=== PATIENT | female | born 1995 | race Caucasian/White ===

== ENCOUNTER 2023-01-28 11:07 | Outpatient (OUT) | payer BC, SELFPAY ==
[2023-02-03 12:53] LABS: HCG Quantitative 21 mIU/mL
== END 2023-01-28 11:08 ==
LOC: LAB 11:11
PROVIDERS: Visit Provider Obstetrics & Gynecology
DX: O20.0 Threatened abortion (principal)
CPT/HCPCS: 36415; 84702

== ENCOUNTER 2023-09-26 16:23 | Outpatient (RCR) | payer BC, SELFPAY ==
[2023-09-26 16:56] LABS: HCG Quantitative 167 mIU/mL
[2023-09-28 15:17] LABS: HCG Quantitative 354 mIU/mL
[2023-09-30 10:41] LABS: HCG Quantitative 686 mIU/mL
[2023-10-13 11:19] LABS: HCG Quantitative 33116 mIU/mL
== END 2023-10-20 17:41 | disposition home or self-care (01) ==
LOC: LAB 16:23
PROVIDERS: Visit Provider Obstetrics & Gynecology
DX: N92.6 Irregular menstruation, unspecified (principal)
CPT/HCPCS: 36415; 84702

== ENCOUNTER 2023-10-27 13:35 | Outpatient (OUT) | payer BC, SELFPAY ==
--- NOTE | 2023-10-27 13:37 | US_ITS ---
[address] [address] Patient Name: MELE DOLL MRN: [id number] date: 1995 Sex: F Assigned Patient Location: [facility] Current Patient Location: [facility] Accession/Order Number: [id number] Exam Date: 10/27/2023 13:38 Report Date: 10/27/2023 14:28 At the request of: ELLEN COLIN Procedure: US OB transvaginal EXAMINATION: US OB transvaginal HISTORY: MISSED MENSES COMPARISON: No relevant comparison available. FINDINGS: GESTATIONAL SAC: Present and normal appearing. YOLK SAC: Present and normal appearing. POLE: Present and normal appearing. CARDIAC: Present. UTERUS: Normal size and appearance. OVARIES: Right: Corpus lutein cyst. Left: Normal. CERVIX: 3.7 cm in length and closed. CUL-DE-SAC: Normal. OTHER: None. AGE BY LMP: 8 weeks 3 days [place] BY LMP: 06/04/2024 AGE BY US CRL: 8 weeks 4 days [place] BY US CRL: 06/03/2024 US/US OB transvaginal IMPRESSION: 1. Single live intrauterine . Electronically authenticated by: EMERSON DOUGLASS Date: 10/27/2023 14:28
--- OUTSIDE RECORDS SUMMARY | 2023-10-27 13:57 | XMS_ITS | CCD ---
Author Name Unknown Address [address] [place] [address] Organization [facility] Care Team Providers Care Electromechanical Engineer Name Role Phone No, Physician Primary Care Provider Unavailabl e NO, PHYSICIAN Primary Care Unavailable MARIELLA, MAGDI REYNOSO Consulting Moon SALAZAR, MAGDI REYNOSO Attending Moon SALAZAR, MAGDI REYNOSO Admitting Unavai lable NO, PHYSICIAN Primary Care Unavailable KELLY, KATE LUCERO Attending Unavailable KATE EMNDOZA Admitting Unavailable REQUEST, DR FREEDMAN LISTED Primary Care Unavaila ble REINECK, DR STEW Haskins Admitting Unavailabl e REINECK, DR STEW Haskins Attending Unavailabl e GRECHJS ., SERGIO VASQUEZ Consulting Unavailabl e STRAWSER, DEYVI Consulting Unavailable REQUEST, DR FREEDMAN LISTED Primary Care Unavaila ble CRISTI ., DR HUGHES Admitting Unavailable CRISTI ., DR HUGHES Consulting Unavailable CRISTI ., DR HUGHES Attending Unavailable REQUEST, DR FREEDMAN LISTED Primary Care Unavaila ble CRISTI ., DR HUGHES Consulting Unavailable CRISTI ., DR HUGHES Attending Unavailable CRISTI ., DR HUGHES Admitting Unavailable REQUEST, DR FREEDMAN LISTED Primary Care Unavaila ble REQUEST, DR FREEDMAN LISTED Consulting Unavaila ble CRISTI ., DR HUGHES Admitting Unavailable CRISTI ., DR HUGHES Attending Unavailable CRISTIELLEN Attending Unavailable Medications Current Medications Medication Drug Class(es) Dates Sig (Normalized) Sig (Original) traMADol hydrochloride 50 mg oral tablet (1 source) Opioid Agonist Start: 06-23-2020 End: 06-26-2020 take 1 tablet by mouth every eight hours as needed for pain, then take 3 tablets by mouth as needed for pain traMADoL (ULTRAM) 50 mg tablet Indications: Acute appendicitis with localized peritonitis, without perforation, abscess, or gangrene Take 1 (one) tablet (50 mg total) by mouth every 8 (eight) hours as needed for pain Days supply 3 . 9 tablet 0 06/23/2020 06/26/2020 Active Completed/Discontinued Medications Medication Drug Class(es) Dates Sig (Normalized) Sig (Original) 1 ml ketorolac tromethamine 30 mg/ml injection (1 source) Nonsteroidal Anti-inflammatory Drug, Cyclooxygenase Inhibitor Start: 06-22-2020 End: 06-23-2020 take 30 mg intravenous route every six hours as needed 30 mg, Intravenous, Every 6 hours PRN, mild pain, Starting 06/22/20 at 2247, For 2 days 1 ml morphine sulfate 2 mg/ml prefilled syringe (2 sources) Opioid Agonist Start: 07-08-2020 End: 07-08-2020 morphine injection 4 mg Start: 06-22-2020 End: 06-23-2020 take 2 mg intravenous route every four hours as needed 2 mg, Intravenous, Every 4 hours PRN, moderate to severe pain, Starting 06/22/20 at 2247, For 2 days 2 ml ondansetron 2 mg/ml injection (2 sources) Serotonin-3 Receptor Antagonist Start: 07-08-2020 End: 07-08-2020 ondansetron (ZOFRAN) injection 4 mg Start: 06-22-2020 End: 06-23-2020 take 4 mg intravenous route every six hours as needed 4 mg, Intravenous, Every 6 hours PRN, nausea, vomiting, Starting 06/22/20 at 2247 As needed for nausea piperacillin-tazobactam (ZOSYN) 3.375 g in sodium chloride (NS) 0.9% 50 mL MBP (2 sources) Start: 06-23-2020 End: 06-23-2020 take 3.375 g intravenous route every eight hours 3.375 g, Intravenous, at 12.5 mL/hr, Every 8 hours, First dose on 06/23/20 at 0200, For 3 doses Indication: Severe Community Intra-abdominal Infections Start: 06-22-2020 End: 06-22-2020 piperacillin-tazobactam (ZOS YN) 3.375 g in sodium chloride (NS) 0.9% 50 mL MBP 1000 ml sodium chloride 9 mg /ml injection (4 sources) Start: 07-08-2020 End: 07-08-2020 sodium chloride 0.9% (NS) denis henri 1,000 mL Start: 07-08-2020 End: 07-08-2020 sodium chloride (PF) (NS) fl ush 5 mL Start: 06-22-2020 End: 06-22-2020 sodium chloride 0.9% (NS) denis henri 1,000 mL Start: 06-22-2020 End: 06-23-2020 sodium chloride (PF) (NS) fl ush 5 mL Problems Problem Classification Problem Date Documented Da te Episodic/Chronic Abdominal pain (1 source) Abdominal pain; Translations: [Abdominal pain, unspecified abdominal location] Episodic Hemorrhage during ; abruptio placenta; placenta previa (7 sources) Threatened ; Translations: [Hemorrhage in early , unspecified] Onset: 01-04-2023 Episodic Residual codes; unclassified (1 source) 9 weeks gestation of ; Translations: [9 WEEKS GESTATION OF ] Onset: 01-06-2023 Episodic Residual codes; unclassified (1 source) Type O blood, Rh negative; Translations: [TYPE O BLOOD RH NEGATIVE] Onset: 01-06-2023 Episodic Unclassified (1 source) Acute appendicitis with localized peritonitis, without perforation or gangrene; Translations: [Acute appendicitis with localized peritonitis, without perforation, abscess, or gangrene] Results Test Name Value Interpretation Reference Range Facility PREG QUANT HCGon 01-19-2023 HCG QUANT 67 mIU/mL Normal [facility] Comment on above: Performed By: #### P REGQNT #### [facility] [address] [place] [address] Dr. Tammi Fleming HCG RANGE SEE BELOW Normal [facility] Comment on above: Result Comment: 5-50 0.2-1 WEEK 50-500 1-2 WEEKS 100-5,000 2-3 WEEKS 500-10,000 3-4 WEEKS 1,000-50,000 4-5 WEEKS 10,000-100,000 5-6 WEEKS 15,000-200,000 6-8 WEEKS 10,000-100,000 2-3 MONTHS Performed By: #### P REGQNT #### [facility] [address] [place] [address] Dr. Tammi Fleming PREG QUANT HCGon 01-10-2023 HCG QUANT 231 mIU/mL Normal [facility] Comment on above: Performed By: #### P REGQNT #### [facility] [address] [place] [address] Dr. Tammi Fleming HCG RANGE SEE BELOW Normal [facility] Comment on above: Result Comment: 5-50 0.2-1 WEEK 50-500 1-2 WEEKS 100-5,000 2-3 WEEKS 500-10,000 3-4 WEEKS 1,000-50,000 4-5 WEEKS 10,000-100,000 5-6 WEEKS 15,000-200,000 6-8 WEEKS 10,000-100,000 2-3 MONTHS Performed By: #### P REGQNT #### [facility] [address] [place] [address] Dr. Tammi Fleming CBC AUTO DIFFon 01-04-2023 BASO # 0.0 103/ul Normal 0.0-0.1 [facility] Comment on above: Performed By: #### C BC #### [facility] [address] [place] [address] Dr. Tammi Fleming Basophils/100 WBC (Bld) 0.3 % Normal 0.2-2.0 [facility] Comment on above: Performed By: #### C BC #### [facility] [address] [place] [address] Dr. Tammi Fleming EO # 0.1 103/ul Normal 0.0-0.7 [facility] Comment on above: Performed By: #### C BC #### [facility] [address] [place] [address] Dr. Tammi Fleming Eosinophils/100 WBC (Bld) 0.8 % Critically low 0.9-7.0 [facility] Comment on above: Performed By: #### C BC #### [facility] [address] [place] [address] Dr. Tammi Fleming Erythrocyte distribution width (RBC) [Ratio] 12.0 % Normal 11.0-15.0 [facility] Comment on above: Performed By: #### C BC #### [facility] [address] [place] [address] Dr. Tammi Fleming Hematocrit (Bld) [Volume fraction] 42.6 % Normal 36.0-48.0 [facility] Comment on above: Performed By: #### C BC #### [facility] [address] [place] [address] Dr. Tammi Fleming Hemoglobin (Bld) [Mass/Vol] 14.5 g/dL Normal 12.0-16.0 [facility] Comment on above: Performed By: #### C BC #### [facility] [address] [place] [address] Dr. Tammi Fleming IG # 0.02 10e3/ul Normal 0.00-0.03 [facility] Comment on above: Performed By: #### C BC #### [facility] [address] [place] [address] Dr. Tammi Fleming IG % 0.3 % Normal 0.0-0.5 [facility] Comment on above: Performed By: #### C BC #### [facility] [address] [place] [address] Dr. Tammi Fleming LYMPH # 1.6 103/ul Normal 1.2-3.8 [facility] Comment on above: Performed By: #### C BC #### [facility] [address] [place] [address] Dr. Tammi Fleming Lymphocytes/100 WBC (Bld) 19.9 % Critically low 20.5-60.0 [facility] Comment on above: Performed By: #### C BC #### [facility] [address] [place] [address] Dr. Tammi Fleming MANUAL DIFF REQ NO Normal [facility] Comment on above: Performed By: #### C BC #### [facility] [address] [place] [address] Dr. Tammi Fleming MCH (RBC) [Entitic mass] 29.8 pg Normal 26.7-34.0 [facility] Comment on above: Performed By: #### C BC #### [facility] [address] [place] [address] Dr. Tammi Fleming MCHC (RBC) [Mass/Vol] 34.0 g/dL Normal 29.9-35.2 [facility] Comment on above: Performed By: #### C BC #### [facility] [address] [address] [address] Tammi Fleming MCV (RBC) [Entitic vol] 87.7 fL Normal 81.0-99.0 [facility] Comment on above: Performed By: #### C BC #### [facility] [address] [address] [address] Tammi Fleming MONO # 0.4 103/ul Normal 0.3-0.8 [facility] Comment on above: Performed By: #### C BC #### [facility] [address] [place] [address] Dr. Tammi Fleming Monocytes/100 WBC (Bld) 5.0 % Normal 1.7-12.0 [facility] Comment on above: Performed By: #### C BC #### [facility] [address] [place] [address] Dr. Tammi Fleming NEUT # 5.8 103/ul Normal 1.4-6.5 [facility] Comment on above: Performed By: #### C BC #### [facility] [address] [place] [address] Dr. Tammi Fleming Neutrophils/100 WBC (Bld) 73.7 % Normal 43.0-75.0 [facility] Comment on above: Performed By: #### C BC #### [facility] [address] [place] [address] Dr. Tammi Fleming Platelet mean volume (Bld) [Entitic vol] 12.1 fL Normal 9.5-13.5 [facility] Comment on above: Performed By: #### C BC #### [facility] [address] [place] [address] Dr. Tammi Fleming PLT 184 103/ul Normal 150-450 [facility] Comment on above: Performed By: #### C BC #### [facility] [address] [place] [address] Dr. Tammi Fleming RBC 4.86 106/ul Normal 4.20-5.40 [facility] Comment on above: Performed By: #### C BC #### [facility] [address] [place] [address] Dr. Tammi Fleming WBC 7.9 103/ul Normal 4.0-11.0 [facility] Comment on above: Performed By: #### C BC #### [facility] [address] [place] [address] Dr. Tammi Fleming ER URINE PROFILEon 3 Bilirubin Ql (U) Negative Normal NEGATIVE [facility] Comment on above: Performed By: #### Angela CHRISTIE UMICRO #### [facility] [address] [place] [address] Dr. Tammi Fleming Clarity (U) CLEAR Normal CLEAR [facility] Comment on above: Performed By: #### Angela CHRISTIE UMICRO #### [facility] [address] [place] [address] Dr. Tammi Fleming Color (U) LT. YELLOW Normal YELLOW [facility] Comment on above: Performed By: #### ERVIN SORTOICRO #### [facility] [address] [place] [address] Dr. Tammi Fleming ERUAHCampbell A micrscopic examina tion will be performed if indicated. Normal [facility] Comment on above: Performed By: #### Angela CHRISTIE UMICRO #### [facility] [address] [place] [address] Dr. Tammi Fleming Glucose Ql (U) Negative Normal NEGATIVE [facility] Comment on above: Performed By: #### Angela CHRISTIE UMICRO #### [facility] [address] [place] [address] Dr. Tammi Fleming Hemoglobin Ql (U) LARGE Abnormal NEGATIVE [facility] Comment on above: Performed By: #### Angela CHRISTIE UMICRO #### [facility] [address] [place] [address] Dr. Tammi Fleming Ketones Ql (U) Negative Normal NEGATIVE [facility] Comment on above: Performed By: #### Angela CHRISTIE UMICRO #### [facility] [address] [place] [address] Dr. Tammi Fleming LEUKOCYTES Negative Normal NEGATIVE [facility] Comment on above: Performed By: #### E RUR, UMICRO #### [facility] [address] [place] [address] Dr. Tammi Fleming Nitrite Ql (U) Negative Normal NEGATIVE [facility] Comment on above: Performed By: #### Angela CHRISTIE UMICRO #### [facility] [address] [place] [address] Dr. Tammi Fleming pH (U) 7.0 [pH] Normal 5-9 [facility] Comment on above: Performed By: #### Angela CHRISTIE UMICRO #### [facility] [address] [place] [address] Dr. Tammi Fleming SPEC GRAVITY <=1.005 Abnormal 1.005-<=1.025 [facility] Comment on above: Performed By: #### Angela CHRISTIE UMICRO #### [facility] [address] [place] [address] Dr. Tammi Fleming UA PROTEIN Negative Normal NEGATIVE/ TRACE [facility] Comment on above: Performed By: #### Angela CHRISTIE ICRO #### [facility] [address] [place] [address] Dr. Tammi Fleming UR MICRO IND INDICATED Normal [facility] Comment on above: Performed By: #### NAGA SORTORO #### [facility] [address] [place] [address] Dr. Tammi Fleming Urobilinogen Qn (U) 0.2 {Elder'U}/dL Normal 0.2 - 1.0 [facility] Comment on above: Performed By: #### Angela CHRISTIE UMICRO #### [facility] [address] [place] [address] Dr. Tammi Fleming PREG QUANT HCGon 01-04-2023 HCG QUANT 4523 mIU/mL Normal [facility] Comment on above: Performed By: #### P REGQNT #### [facility] [address] [place] [address] Dr. Tammi Fleming HCG RANGE SEE BELOW Normal [facility] Comment on above: Result Comment: 5-50 0.2-1 WEEK 50-500 1-2 WEEKS 100-5,000 2-3 WEEKS 500-10,000 3-4 WEEKS 1,000-50,000 4-5 WEEKS 10,000-100,000 5-6 WEEKS 15,000-200,000 6-8 WEEKS 10,000-100,000 2-3 MONTHS Performed By: #### P REGQNT #### [facility] [address] [place] [address] Dr. Tammi Fleming URINE MICROSCOPIC ONLYon BACTERIA TRACE Abnormal NONE SEEN [facility] Comment on above: Performed By: #### E RUR, UMICRO #### [facility] [address] [place] [address] Dr. Tammi Fleming Bacteria identified Cx Nom (U) NOT INDICATED Normal [facility] Comment on above: Performed By: #### Angela CHRISTIE, UMICRO #### [facility] [address] [place] [address] Dr. Tammi Fleming CAST NONE SEEN Normal NONE SEEN [facility] Comment on above: Performed By: #### Angela CHRISTIE, UMICRO #### [facility] [address] [place] [address] Dr. Tammi Fleming Crystals LM Nom (Urine sed) NONE SEEN Normal NONE SEEN [facility] Comment on above: Performed By: #### Angela CHRISTIE, UMICRO #### [facility] [address] [place] [address] Dr. Tammi Fleming Epithelial cells LM Ql (Urine sed) NONE SEEN Normal NONE SEEN /RARE [facility] Comment on above: Performed By: #### Angela CHRISTIE UMICRO #### [facility] [address] [place] [address] Dr. Tammi Fleming MUCOUS NONE SEEN Normal NONE SEEN [facility] Comment on above: Performed By: #### Angela CHRISTIE, UMICRO #### [facility] [address] [place] [address] Dr. Tammi Fleming RBC 2-5 Abnormal 0-2 [facility] Comment on above: Performed By: #### Angela CHRISTIE UMICRO #### [facility] [address] [place] [address] Dr. Tammi Fleming WBC NONE SEEN Normal NONE SEEN [facility] Comment on above: Performed By: #### E CIRILO CHRISTIE #### [facility] [address] [id number] Tammi Fleming US PREG TVon 01-04-2023 US PREG TV 1ST TRIMESTER OBSTET EPHRAIM ULTRASOUND: HISTORY: Vaginal bleeding complicating early . COMPARISON: No previous ultrasounds for this .. TECHNIQUE: Real-time sonography of the pelvis was performed. FINDINGS: There is a gestational sac and yolk sac. However, there is no pole or heartbeat identified which could be due to early gestational age. Both ovaries are visualized and are within normal limits. The right ovary measures3.0 x 2.7 x 1.7 cm. The left ovary measures3.1 x 2.6 x 1.9 cm.There is no free fluid in the cul-de-sac. IMPRESSION: There is a gestational sac and yolk sac. However, there is no pole or heartbeat which could be due to early gestational age. Repeat sonography is recommended in 2 weeks. Correlation is also recommended with serial beta hCG levels. Electronically authenticated by: DEYVI FELDER Date: 2023-01-04 18:08 Normal [facility] BMPon 07-08-2020 Anion gap [Moles/Vol] 11 mmol/L 10 - 20 mmol/L [facility] Calcium [Mass/Vol] 9.5 mg/dL 8.4 - 10. 2 mg/dL [facility] Chloride [Moles/Vol] 109 mmol/L High 98 - 108 mmol/L [facility] Creatinine [Mass/Vol] 0.85 mg/dL 0.40 - 1.10 [facility] GFR/1.73 sq M predicted among non-blacks MDRD (S/P/Bld) [Vol rate/Area] The eGFR should be used for monitoring renal function only and not for medication dosing. [facility] GFR/1.73 sq M.predicted CKD-EPI (S/P/Bld) [Vol rate/Area] 96 >=60 mL/min/1.73 m2 [facility] Glucose [Mass/Vol] 95 mg/dL 65 - 99 mg/dL [facility] HCO3 [Moles/Vol] 23 mmol/L 21 - 32 mmol/L [facility] Interpretation and review of laboratory results Abnormal [facility] Potassium [Moles/Vol] 3.5 mmol/L 3.5 - 5.1 mmol/L [facility] Sodium [Moles/Vol] 139 mmol/L 135 - 145 mmol/L [facility] Urea nitrogen [Mass/Vol] 10 mg/dL 8 - 25 mg/dL [facility] Urea nitrogen/Creatinin e [Mass ratio] 11.8 mg/mg [facility] CBC WITH AUTO DIFFERENTIALon 07-08-2020 Basophils (Bld) [#/Vol] 0.02 10*3/uL [facility] Basophils/100 WBC (Bld) 0.2 % [facility] Eosinophils (Bld) [#/Vol] 0.04 10*3/uL [facility] Eosinophils/100 WBC (Bld) 0.5 % [facility] Erythrocyte distribution width (RBC) [Entitic vol] 12.0 % 11.6 - 14.8 % [facility] Hematocrit (Bld) [Volume fraction] 43.3 % 36 - 46 % [facility] Hemoglobin (Bld) [Mass/Vol] 14.7 g/dL 12 - 16 g/dL [facility] Immature granulocytes (Bld) [#/Vol] 0.00 10*3/uL [facility] Immature granulocytes/100 WBC (Bld) 0.00 % [facility] Comment on above: The IG parameter is the percentage of metamyelocytes, myelocytes and promyelocytes. An immature granulocyte count (IG) of 1% or more suggests the possibility of infection, an IG count of 3% is very likely related to an infection. Lymphocytes (Bld) [#/Vol] 2.44 10*3/uL [facility] Lymphocytes/100 WBC (Bld) 30.2 % [facility] MCH (RBC) [Entitic mass] 29.2 pg 26 - 34 pg [facility] MCHC (RBC) [Mass/Vol] 33.9 g/dL 31 - 37 g/dL [facility] MCV (RBC) [Entitic vol] 86.1 fL 80 - 100 fL [facility] Monocytes (Bld) [#/Vol] 0.40 10*3/uL [facility] Monocytes/100 WBC (Bld) 5.0 % [facility] Neutrophils (Bld) [#/Vol] 5.17 10*3/uL [facility] Neutrophils/100 WBC (Bld) 64.1 % [facility] Platelet mean volume (Bld) [Entitic vol] 11.8 fL 9.4 - 12.4 fL [facility] Platelets (Bld) [#/Vol] 228 10*3/uL [facility] RBC (Bld) [#/Vol] 5.03 10*6/uL [facility] ealt WBC (Bld) [#/Vol] 8.07 10*3/uL [facility] ealt CT ABDOMEN PELVIS WITH IV CO NTRAST ONLYon 07-08-2020 CT ABDOMEN PELVIS WITH IV CONTRAST ONLY EXAMINATION: CT ABDOMEN PELVIS WITH IV CONTRAST ONLY HISTORY: ORDERING SYSTEM PROVIDED HISTORY: Abdominal infection suspected; Abdominal pain, acute, nonlocalized, TECHNOLOGIST PROVIDED HISTORY: Illness/Other Reason for exam: abd pain: nausea Encounter Type: Initial Additional signs and symptoms: abd pain x 2 days ORDERING SYSTEM PROVIDED DIAGNOSIS CODES: COMPARISON: 06/22/2020 TECHNIQUE: Following the uneventful administration of 75 mL Isovue-370 IV contrast, helical imaging of the abdomen and pelvis was performed. Multiplanar reformats are submitted. Dose reduction techniques were achieved by using: automated exposure control and/or adjustment of mA and/or kV according to patient size and/or use of iterative reconstruction technique. FINDINGS: ABDOMEN: The lung bases are clear. Heart size is normal. No pleural or pericardial effusion. The liver demonstrates normal morphology and attenuation without focal hepatic lesion. The gallbladder is present without calcified gallstones or pericholecystic abnormality. The spleen, pancreas and adrenal glands are unremarkable. There is symmetric enhancement of the kidneys. No obstructive uropathy or nephroureterolithiasis identified. PELVIS: There is no free air, bowel obstruction or pneumatosis. There are postsurgical changes from recent appendectomy. Trace amount of fluid is present along the inferior margin of the liver, which appears simple in nature. There is no organized drainable fluid collection to suggest abscess. Small amount of perihepatic fluid likely is postsurgical. Bladder is moderately distended and thin walled. The uterus and ovaries are present. Trace amount of free fluid in the pelvis is likely physiologic versus postsurgical. Feminine hygiene product is present within the vagina. The abdominal aorta is normal. No retroperitoneal or abdominopelvic lymphadenopathy. No acute or aggressive osseous abnormality identified. IMPRESSION: 1. No acute infectious, inflammatory or obstructive process identified in the abdomen or pelvis. 2. Postsurgical changes from recent appendectomy. Workstation ID: [id number] Dictated by: MAYNOR KABA on TueJul 08, 2020 3:59:53 PM EST Transcribed by: MAYNOR KABA on TueJul 08, 2020 3:59:53 PM EST Finalized by: MAYNOR KABA on TueJul 08, 2020 3:59:53 PM EST [facility] Comment on above: Order Comment: Injur y/Trauma or Illness?:Illness/Other How long have you had these symptoms (acute/chronic)?:Acute Reason for exam?:abd pain: nausea Type of Exam?:Initial Additional signs and symptoms?:abd pain x [address] Abdomen Pelvis With IV Co ntrast Onlyon 07-08-2020 Interface, Rad In Fu ji Speechq - 07/08/2020 4:02 PM EST EXAMINATION: CT ABDOMEN PELVIS WITH IV CONTRAST ONLY HISTORY: ORDERING SYSTEM PROVIDED HISTORY: Abdominal infection suspected; Abdominal pain, acute, nonlocalized, TECHNOLOGIST PROVIDED HISTORY: Illness/Other Reason for exam: abd pain: nausea Encounter Type: Initial Additional signs and symptoms: abd pain x 2 days ORDERING SYSTEM PROVIDED DIAGNOSIS CODES: COMPARISON: 06/22/2020 TECHNIQUE: Following the uneventful administration of 75 mL Isovue-370 IV contrast, helical imaging of the abdomen and pelvis was performed. Multiplanar reformats are submitted. Dose reduction techniques were achieved by using: automated exposure control and/or adjustment of mA and/or kV according to patient size and/or use of iterative reconstruction technique. FINDINGS: ABDOMEN: The lung bases are clear. Heart size is normal. No pleural or pericardial effusion. The liver demonstrates normal morphology and attenuation without focal hepatic lesion. The gallbladder is present without calcified gallstones or pericholecystic abnormality. The spleen, pancreas and adrenal glands are unremarkable. There is symmetric enhancement of the kidneys. No obstructive uropathy or nephroureterolithiasis identified. PELVIS: There is no free air, bowel obstruction or pneumatosis. There are postsurgical changes from recent appendectomy. Trace amount of fluid is present along the inferior margin of the liver, which appears simple in nature. There is no organized drainable fluid collection to suggest abscess. Small amount of perihepatic fluid likely is postsurgical. Bladder is moderately distended and thin walled. The uterus and ovaries are present. Trace amount of free fluid in the pelvis is likely physiologic versus postsurgical. Feminine hygiene product is present within the vagina. The abdominal aorta is normal. No retroperitoneal or abdominopelvic lymphadenopathy. No acute or aggressive osseous abnormality identified. IMPRESSION: 1. No acute infectious, inflammatory or obstructive process identified in the abdomen or pelvis. 2. Postsurgical changes from recent appendectomy. Workstation ID: [id number] [facility] EXAMINATION: CT ABDO MEN PELVIS WITH IV CONTRAST ONLY HISTORY: ORDERING SYSTEM PROVIDED HISTORY: Abdominal infection suspected; Abdominal pain, acute, nonlocalized, TECHNOLOGIST PROVIDED HISTORY: Illness/Other Reason for exam: abd pain: nausea Encounter Type: Initial Additional signs and symptoms: abd pain x 2 days ORDERING SYSTEM PROVIDED DIAGNOSIS CODES: COMPARISON: 06/22/2020 TECHNIQUE: Following the uneventful administration of 75 mL Isovue-370 IV contrast, helical imaging of the abdomen and pelvis was performed. Multiplanar reformats are submitted. Dose reduction techniques were achieved by using: automated exposure control and/or adjustment of mA and/or kV according to patient size and/or use of iterative reconstruction technique. FINDINGS: ABDOMEN: The lung bases are clear. Heart size is normal. No pleural or pericardial effusion. The liver demonstrates normal morphology and attenuation without focal hepatic lesion. The gallbladder is present without calcified gallstones or pericholecystic abnormality. The spleen, pancreas and adrenal glands are unremarkable. There is symmetric enhancement of the kidneys. No obstructive uropathy or nephroureterolithiasis identified. PELVIS: There is no free air, bowel obstruction or pneumatosis. There are postsurgical changes from recent appendectomy. Trace amount of fluid is present along the inferior margin of the liver, which appears simple in nature. There is no organized drainable fluid collection to suggest abscess. Small amount of perihepatic fluid likely is postsurgical. Bladder is moderately distended and thin walled. The uterus and ovaries are present. Trace amount of free fluid in the pelvis is likely physiologic versus postsurgical. Feminine hygiene product is present within the vagina. The abdominal aorta is normal. No retroperitoneal or abdominopelvic lymphadenopathy. No acute or aggressive osseous abnormality identified. [facility] 1. No acute infectio us, inflammatory or obstructive process identified in the abdomen or pelvis. 2. Postsurgical changes from recent appendectomy. Workstation ID: [id number] [facility] Hepatic Function Panel (LFT) on 07-08-2020 Albumin [Mass/Vol] 3.8 g/dL 3.2 - 5.2 g/dL [facility] ALP [Catalytic activity/Vol] 71 U/L 40 - 140 U/L [facility] ALT [Catalytic activity/Vol] 31 U/L 14 - 65 U/L [facility] AST [Catalytic activity/Vol] 18 U/L 0 - 45 U/L [facility] Bilirubin [Mass/Vol] 0.3 mg/dL 0 - 1.3 mg/dL [facility] Bilirubin.conjugat ed [Mass/Vol] mg/dL 0 - 0.4 mg/dL [facility] Protein [Mass/Vol] 7.9 g/dL 6 - 8 g/dL [facility] alth Lipaseon 07-08-2020 Lipase [Catalytic activity/Vol] 95 U/L 73 - 393 U/L [facility] Otheron 07-08-2020 Interpretation and review of laboratory results Normal [facility] Extra Tube Hold for add-ons. [facility] Comment on above: Auto resulted. URINALYSISon 07-08-2020 Bacteria Auto Ql (U) Rare Abnormal None Seen /hpf [facility] Bilirubin Ql (U) Negative Negative [facility] th Clarity Refractometry automated (U) Clear Clear [facility] Color (U) Yellow Colorless, Yellow [facility] Epithelial cells.squamous Auto (Urine sed) [#/Area] 1 [facility] Glucose Auto test strip (U) [Mass/Vol] Negative Negative mg/dL [facility] Hemoglobin Auto test strip Ql (U) Negative Negative [facility] Interpretation and review of laboratory results Abnormal [facility] Ketones (U) [Mass/Vol] Negative Negative mg/dL [facility] Leukocyte esterase Auto test strip Ql (U) Negative Negative [facility] Nitrite Auto test strip Ql (U) Negative Negative [facility] pH (U) 7.5 [pH] High [facility] Protein (U) [Mass/Vol] Negative Negative mg/dL [facility] Specific gravity (U) [Rel density] 1.020 [facility] Urobilinogen (U) [Mass/Vol] <2.0 <2.0 mg/dL [facility] Microscopic examinat ion is performed on all urinalysis samples and only positive findings are reported. The test for blood on the chemical analytic portion of urinalysis may also be positive due to hemoglobinuria and myoglobinuria and if red blood cells are present they are quantified by microscopic examination. [facility] Urine Pregnancyon 07-08-2020 HCG ( test) Ql (U) Negative Negative [facility] Interpretation and review of laboratory results Normal [facility] CBC WITH AUTO DIFFERENTIALon 06-23-2020 Basophils (Bld) [#/Vol] 0.00 10*3/uL [facility] Basophils/100 WBC (Bld) 0.0 % [facility] Eosinophils (Bld) [#/Vol] 0.00 10*3/uL [facility] Eosinophils/100 WBC (Bld) 0.0 % [facility] Erythrocyte distribution width (RBC) [Entitic vol] 12.2 % 11.6 - 14.8 % [facility] Hematocrit (Bld) [Volume fraction] 37.2 % 36 - 46 % [facility] Hemoglobin (Bld) [Mass/Vol] 12.6 g/dL 12 - 16 g/dL [facility] Immature granulocytes (Bld) [#/Vol] 0.01 10*3/uL [facility] Immature granulocytes/100 WBC (Bld) 0.10 % [facility] Comment on above: The IG parameter is the percentage of metamyelocytes, myelocytes and promyelocytes. An immature granulocyte count (IG) of 1% or more suggests the possibility of infection, an IG count of 3% is very likely related to an infection. Interpretation and review of laboratory results Abnormal [facility] Lymphocytes (Bld) [#/Vol] 0.82 10*3/uL Low [facility] Lymphocytes/100 WBC (Bld) 6.8 % [facility] MCH (RBC) [Entitic mass] 29.3 pg 26 - 34 pg [facility] MCHC (RBC) [Mass/Vol] 33.9 g/dL 31 - 37 g/dL [facility] MCV (RBC) [Entitic vol] 86.5 fL 80 - 100 fL [facility] Monocytes (Bld) [#/Vol] 0.31 10*3/uL [facility] Monocytes/100 WBC (Bld) 2.6 % [facility] Neutrophils (Bld) [#/Vol] 10.86 10*3/uL High [facility] Neutrophils/100 WBC (Bld) 90.5 % [facility] Platelet mean volume (Bld) [Entitic vol] 12.1 fL 9.4 - 12.4 fL [facility] Platelets (Bld) [#/Vol] 197 10*3/uL [facility] RBC (Bld) [#/Vol] 4.30 10*6/uL [facility]alth WBC (Bld) [#/Vol] 12.00 10*3/uL [facility] CBC WITH AUTO DIFFERENTIALon 06-22-2020 Basophils (Bld) [#/Vol] 0.02 10*3/uL [facility] Basophils/100 WBC (Bld) 0.1 % [facility] Eosinophils (Bld) [#/Vol] 0.00 10*3/uL [facility] Eosinophils/100 WBC (Bld) 0.0 % [facility] Erythrocyte distribution width (RBC) [Entitic vol] 12.0 % 11.6 - 14.8 % [facility] Hematocrit (Bld) [Volume fraction] 40.2 % 36 - 46 % [facility] Hemoglobin (Bld) [Mass/Vol] 14.0 g/dL 12 - 16 g/dL [facility] Immature granulocytes (Bld) [#/Vol] 0.02 10*3/uL [facility] Immature granulocytes/100 WBC (Bld) 0.10 % [facility] Comment on above: The IG parameter is the percentage of metamyelocytes, myelocytes and promyelocytes. An immature granulocyte count (IG) of 1% or more suggests the possibility of infection, an IG count of 3% is very likely related to an infection. Interpretation and review of laboratory results Abnormal [facility] Lymphocytes (Bld) [#/Vol] 1.20 10*3/uL [facility] Lymphocytes/100 WBC (Bld) 5.9 % [facility] MCH (RBC) [Entitic mass] 29.4 pg 26 - 34 pg [facility] MCHC (RBC) [Mass/Vol] 34.8 g/dL 31 - 37 g/dL [facility] MCV (RBC) [Entitic vol] 84.5 fL 80 - 100 fL [facility] Monocytes (Bld) [#/Vol] 0.67 10*3/uL [facility] Monocytes/100 WBC (Bld) 3.3 % [facility] Neutrophils (Bld) [#/Vol] 18.51 10*3/uL High [facility] Neutrophils/100 WBC (Bld) 90.6 % [facility] Platelet mean volume (Bld) [Entitic vol] 11.7 fL 9.4 - 12.4 fL [facility] Platelets (Bld) [#/Vol] 223 10*3/uL [facility] RBC (Bld) [#/Vol] 4.76 10*6/uL [facility] WBC (Bld) [#/Vol] 20.42 10*3/uL [facility] COVID-19, MOLECULARon 2019 SARS-COV-2 (BERG ID) Not Detected Normal Not Detected [facility] Comment on above: Result Comment: This test was performed under the FDA's Emergency Use Authorization (EUA). Testing was performed using the Berg ID NOW COVID-19 assay on the ID NOW platform. This test has not been approved for use in asymptomatic patients and its performance in this patient population has not been evaluated. Negative results do not rule out the presence of SARS-CoV-2/COVID-19. Fact sheets for the EUA can be found at the following links: For Healthcare Providers: https://www.fda.gov/media/382954/download For Patients: https://www.fda.gov/media/322469/download Performed By: #### L [id number] #### SH [address] [address] Kenneth Arrieta M.D. [id number] COVID-19, Molecularon 2019 Interpretation and review of laboratory results Normal [facility] SARS-CoV-2 Not Detected Not Detected [facility] Comment on above: This test was perfor med under the FDA's Emergency Use Authorization (EUA). Testing was performed using the Berg ID NOW COVID-19 assay on the ID NOW platform. This test has not been approved for use in asymptomatic patients and its performance in this patient population has not been evaluated. Negative results do not rule out the presence of SARS-CoV-2/COVID-19. Fact sheets for the EUA can be found at the following links: For Healthcare Providers: https://www.fda.gov/media/510382/download For Patients: https://www.fda.gov/media/659983/download CT ABDOMEN PELVIS WITH IV CO NTRAST ONLYon 06-22-2020 CT ABDOMEN PELVIS WITH IV CONTRAST ONLY EXAMINATION: CT ABDOMEN PELVIS WITH IV CONTRAST ONLY, 06/22/2020 COMPARISON: None. HISTORY: Suprapubic and RLQ abd pain Suprapubic and RLQ abd pain, Injury/Trauma or Illness?:Illness/Other How long have you had these symptoms (acute/chronic)?:Chronic, 3 months of off and on RLQ pain. TECHNIQUE: 3 mm axial images performed through the abdomen and pelvis following administration of 75 mL of intravenous Isovue-370. 3 mm coronal and sagittal MPR reconstructions also performed through the abdomen and pelvis. Dose reduction techniques were achieved by using automated exposure control and/or adjustment of mA and/or kV according to patient size and/or use of iterative reconstruction technique. FINDINGS: ABDOMINAL CT FINDINGS: Lung bases are clear. Visualized heart is normal in size with no pericardial effusion. The liver and remaining solid organs and gallbladder are unremarkable in appearance. No significant adenopathy. PELVIC CT FINDINGS: The appendix which is seen just anterior to the right common iliac artery is distended with largest distal diameter approaching 9 mm with wall enhancement and mild adjacent fatty stranding and edema consistent with an acute appendicitis (image #[id number], series 2 and image #[id number], series 3). Moderate amount of fecal matter in the proximal colon. The cecum is seen directed medially within the central anterior [id number] pelvis. No bowel obstruction. Some physiologic free fluid in the cul-de-sac. Some follicles seen in the ovaries bilaterally. The uterus and urinary bladder unremarkable. No acute osseous abnormality. IMPRESSION: 1. Acute appendicitis. The appendix is seen just anterior to the right common iliac artery and is distended approaching 9 mm with wall enhancement and surrounding fatty stranding. 2. Moderate amount of fecal matter in the proximal colon. The cecum is directed medially within the central anterior [id number] pelvis with no bowel obstruction. 3. Some physiologic free fluid in the cul-de-sac. Some small follicles seen in the ovaries bilaterally. Results were called by Dr. Clifford Wilson to Dr. ANDREY VALDEZ on 06/22/2020 at 16:43. GJT/dnb Workstation ID: [id number] Dictated by: CHAD WILSON on TueJun 22, 2020 4:45:35 PM EST Transcribed by: ROSA ISELA BOWEN on TueJun 22, 2020 5:23:52 PM EST Finalized by: CHAD WILSON on TueJun 22, 2020 8:48:07 PM EST [facility] Comment on above: Order Comment: Injur y/Trauma or Illness?:Illness/Other How long have you had these symptoms (acute/chronic)?:Chronic Reason for exam?:3 months of off and on RLQ pain Type of Exam?:Initial Additional signs and symptoms?:denies any other symptoms CT Abdomen Pelvis With IV Co ntrast Onlyon 06-22-2020 Interface, Rad In Fu ji Speechq - 06/22/2020 8:50 PM EST EXAMINATION: CT ABDOMEN PELVIS WITH IV CONTRAST ONLY, 06/22/2020 COMPARISON: None. HISTORY: Suprapubic and RLQ abd pain Suprapubic and RLQ abd pain, Injury/Trauma or Illness?:Illness/Other How long have you had these symptoms (acute/chronic)?:Chronic, 3 months of off and on RLQ pain. TECHNIQUE: 3 mm axial images performed through the abdomen and pelvis following administration of 75 mL of intravenous Isovue-370. 3 mm coronal and sagittal MPR reconstructions also performed through the abdomen and pelvis. Dose reduction techniques were achieved by using automated exposure control and/or adjustment of mA and/or kV according to patient size and/or use of iterative reconstruction technique. FINDINGS: ABDOMINAL CT FINDINGS: Lung bases are clear. Visualized heart is normal in size with no pericardial effusion. The liver and remaining solid organs and gallbladder are unremarkable in appearance. No significant adenopathy. PELVIC CT FINDINGS: The appendix which is seen just anterior to the right common iliac artery is distended with largest distal diameter approaching 9 mm with wall enhancement and mild adjacent fatty stranding and edema consistent with an acute appendicitis (image #[id number], series 2 and image #[id number], series 3). Moderate amount of fecal matter in the proximal colon. The cecum is seen directed medially within the central anterior vhj-pt-falxu pelvis. No bowel obstruction. Some physiologic free fluid in the cul-de-sac. Some follicles seen in the ovaries bilaterally. The uterus and urinary bladder unremarkable. No acute osseous abnormality. IMPRESSION: 1. Acute appendicitis. The appendix is seen just anterior to the right common iliac artery and is distended approaching 9 mm with wall enhancement and surrounding fatty stranding. 2. Moderate amount of fecal matter in the proximal colon. The cecum is directed medially within the central anterior rvj-in-phxbf pelvis with no bowel obstruction. 3. Some physiologic free fluid in the cul-de-sac. Some small follicles seen in the ovaries bilaterally. Results were called by Dr. Clifford Wilson to Dr. ANDREY VALDEZ on 06/22/2020 at 16:43. GJT/dnb Workstation ID: [id number] [facility] 1. Acute appendiciti s. The appendix is seen just anterior to the right common iliac artery and is distended approaching 9 mm with wall enhancement and surrounding fatty stranding. 2. Moderate amount of fecal matter in the proximal colon. The cecum is directed medially within the central anterior lwt-ud-[id number] pelvis with no bowel obstruction. 3. Some physiologic free fluid in the cul-de-sac. Some small follicles seen in the ovaries bilaterally. Results were called by Dr. Clifford Wilson to Dr. ANDREY VALDEZ on 06/22/2020 at 16:43. GJT/dnb Workstation ID: [id number] [facility] EXAMINATION: CT ABDO MEN PELVIS WITH IV CONTRAST ONLY, 06/22/2020 COMPARISON: None. HISTORY: Suprapubic and RLQ abd pain Suprapubic and RLQ abd pain, Injury/Trauma or Illness?:Illness/Other How long have you had these symptoms (acute/chronic)?:Chronic, 3 months of off and on RLQ pain. TECHNIQUE: 3 mm axial images performed through the abdomen and pelvis following administration of 75 mL of intravenous Isovue-370. 3 mm coronal and sagittal MPR reconstructions also performed through the abdomen and pelvis. Dose reduction techniques were achieved by using automated exposure control and/or adjustment of mA and/or kV according to patient size and/or use of iterative reconstruction technique. FINDINGS: ABDOMINAL CT FINDINGS: Lung bases are clear. Visualized heart is normal in size with no pericardial effusion. The liver and remaining solid organs and gallbladder are unremarkable in appearance. No significant adenopathy. PELVIC CT FINDINGS: The appendix which is seen just anterior to the right common iliac artery is distended with largest distal diameter approaching 9 mm with wall enhancement and mild adjacent fatty stranding and edema consistent with an acute appendicitis (image #[id number], series 2 and image #[id number], series 3). Moderate amount of fecal matter in the proximal colon. The cecum is seen directed medially within the central anterior qkx-rw-pggvv pelvis. No bowel obstruction. Some physiologic free fluid in the cul-de-sac. Some follicles seen in the ovaries bilaterally. The uterus and urinary bladder unremarkable. No acute osseous abnormality. [facility] Comprehensive Metabolic Pane kendra 06-22-2020 Albumin [Mass/Vol] 4.0 g/dL 3.2 - 5.2 g/dL [facility] ALP [Catalytic activity/Vol] 63 U/L 40 - 140 U/L [facility] ALT [Catalytic activity/Vol] 27 U/L 14 - 65 U/L [facility] Anion gap [Moles/Vol] 10 mmol/L 10 - 20 mmol/L [facility] AST [Catalytic activity/Vol] 18 U/L 0 - 45 U/L [facility] Bilirubin [Mass/Vol] 0.5 mg/dL 0 - 1.3 mg/dL [facility] Calcium [Mass/Vol] 9.1 mg/dL 8.4 - 10. 2 mg/dL [facility] Chloride [Moles/Vol] 109 mmol/L High 98 - 108 mmol/L [facility] Creatinine [Mass/Vol] 0.83 mg/dL 0.40 - 1.10 [facility] GFR/1.73 sq M predicted among non-blacks MDRD (S/P/Bld) [Vol rate/Area] The eGFR should be used for monitoring renal function only and not for medication dosing. [facility] GFR/1.73 sq M.predicted CKD-EPI (S/P/Bld) [Vol rate/Area] 98 >=60 mL/min/1.73 m2 [facility] Glucose [Mass/Vol] 96 mg/dL 65 - 99 mg/dL [facility] HCO3 [Moles/Vol] 25 mmol/L 21 - 32 mmol/L [facility] Potassium [Moles/Vol] 3.7 mmol/L 3.5 - 5.1 mmol/L [facility] Protein [Mass/Vol] 7.8 g/dL 6 - 8 g/dL [facility] alth Sodium [Moles/Vol] 140 mmol/L 135 - 145 mmol/L [facility] Urea nitrogen [Mass/Vol] 10 mg/dL 8 - 25 mg/dL [facility] Urea nitrogen/Creatinin e [Mass ratio] 12.0 mg/mg [facility] ECG 12-LEADon 06-22-2020 Andrey Valdez MD 2019 4:57 PM ECG 12 Lead Date/Time: 06/22/2020 4:51 PM Performed by: Andrey Valdez MD Authorized by: Andrey Valdez MD Interpreted by ED attending physician Comparison: not compared with previous ECG Rhythm: sinus rhythm BPM: 85 ND Interval: 108 QRS Interval: 82 QT Interval: 426 Clinical impression: non-specific ECG [facility] Lipaseon 06-22-2020 Lipase [Catalytic activity/Vol] 72 U/L Low 73 - 393 U/L [facility] Otheron 06-22-2020 Interpretation and review of laboratory results Abnormal [facility] URINALYSISon 06-22-2020 Bacteria Auto Ql (U) Few Abnormal None Seen /hpf [facility] Bilirubin Ql (U) Negative Negative [facility] th Clarity Refractometry automated (U) Cloudy Abnormal Clear [facility] Color (U) Yellow Colorless, Yellow [facility] Epithelial cells.squamous Auto (Urine sed) [#/Area] 3 [facility] Glucose Auto test strip (U) [Mass/Vol] Negative Negative mg/dL [facility] Hemoglobin Auto test strip Ql (U) Negative Negative [facility] Interpretation and review of laboratory results Abnormal [facility] Ketones (U) [Mass/Vol] 20 Abnormal Negative mg/dL [facility] Leukocyte esterase Auto test strip Ql (U) Negative Negative [facility] Nitrite Auto test strip Ql (U) Negative Negative [facility] pH (U) 7.0 [pH] [facility] Protein (U) [Mass/Vol] Negative Negative mg/dL [facility] Specific gravity (U) [Rel density] 1.020 [facility] Urobilinogen (U) [Mass/Vol] <2.0 <2.0 mg/dL [facility] WBC Auto (Urine sed) [#/Area] 2 [facility] Microscopic examinat ion is performed on all urinalysis samples and only positive findings are reported. The test for blood on the chemical analytic portion of urinalysis may also be positive due to hemoglobinuria and myoglobinuria and if red blood cells are present they are quantified by microscopic examination. [facility] Urine Pregnancyon 06-22-2020 HCG ( test) Ql (U) Negative Negative [facility] Interpretation and review of laboratory results Normal [facility] Vital Signs Date Time Vital Sign Value Performing Clinician Jennifer evans 07-08-2020 15:34-0500 BP Diastolic 79 mm[Hg] [facility] 07-08-2020 15:34-0500 BP Systolic 125 mm[Hg] [facility] 07-08-2020 15:34-0500 Pulse (Heart Rate) 81 /min [facility] 07-08-2020 15:34-0500 Pulse Oximetry 99 % [facility] 07-08-2020 15:34-0500 Respiratory Rate 16 /min [facility] 07-08-2020 13:50-0500 BMI (Body Mass Index) 20.36 kg/m2 [facility] 07-08-2020 13:50-0500 Body Temperature 98.49 [degF] [facility] 07-08-2020 13:50-0500 Body weight 58.97 kg Kate Mendoza [facility] 07-08-2020 13:50-0500 Height 170.2 cm Kate Mendoza [facility] 06-23-2020 07:35-0500 Body Temperature 98.01 [degF] [facility] 06-23-2020 07:35-0500 BP Diastolic 68 mm[Hg] [facility] 06-23-2020 07:35-0500 BP Systolic 106 mm[Hg] [facility] 06-23-2020 07:35-0500 Pulse (Heart Rate) 75 /min [facility] 06-23-2020 07:35-0500 Pulse Oximetry 94 % [facility] 06-23-2020 07:35-0500 Respiratory Rate 16 /min [facility] 06-22-2020 14:15-0500 BMI (Body Mass Index) 20.36 kg/m2 [facility] 06-22-2020 14:15-0500 Body weight 58.97 kg [facility] 06-22-2020 14:15-0500 Height 170.2 cm [facility] Encounters Encounter Date Encounter Type Care Provider Facility Start: 09-12-2023 End: 09-12-2023 ambulatory ELLEN COLIN Not Available Start: 01-19-[address] NONE LISTED REQUEST Facility: Start: 01-14-[address] NONE LISTED REQUEST Facility: Start: 01-10-2023 End: 01-11-[address] NONE LISTED REQUEST Facility: Start: 01-04-2023 End: 01-04-[address] NONE LISTED REQUEST Facility: Start: 07-08-2020 End: 07-08-2020 Emergency department patient visit PHYSICIAN [facility] Start: 07-08-2020 End: 07-08-2020 Emergency department patient visit Kate Mendoza Work Phone: [facility] Comment on above: Abdominal pain, unsp ecified abdominal location (Primary Dx) Start: 06-22-2020 End: 06-23-2020 Patient encounter procedure PHYSICIAN [facility] Start: 06-22-2020 End: 06-23-2020 Emergency department patient visit Andrey Valdez Work Phone: [facility] Comment on above: Acute appendicitis w ith localized peritonitis, without perforation, abscess, or gangrene (Primary Dx) Procedures Date Procedure Procedure Detail Performing Clinician Start: 07-08-2020 Ct abdomen & pelvis w/contrast material Kate Mendoza Work Phone: Start: 07-08-2020 Basic metabolic 2000 panel - Serum or Plasma Kate Mendoza Work Phone: Start: 07-08-2020 Choriogonadotropin ( test) [Presence] in Urine Kate Mendoza Work Phone: Start: 07-08-2020 Complete blood count with white cell differential, automated Kate Mendoza Work Phone: Start: 07-08-2020 Complete blood count with white cell differential, manual Kate Mendoza Work Phone: Start: 07-08-2020 Hepatic function 2000 panel - Serum or Plasma Kate Mendoza Work Phone: Start: 07-08-2020 LIGHT BLUE TOP Kate Mendoza Work Phone: Start: 07-08-2020 LIGHT GREEN TOP Kate Mendoza Work Phone: Start: 07-08-2020 Lipase [Enzymatic activity/volume] in Serum or Plasma Kate Mendoza Work Phone: Start: 07-08-2020 RAINBOW DRAW Kate Mendoza Work Phone: Start: 07-08-2020 Urinalysis Kate Mendoza Work Phone: Start: 06-23-2020 Complete blood count with white cell differential, automated Magdi Kevin Salazar Work Phone: Start: 06-23-2020 Complete blood count with white cell differential, manual Magdi Kevin Salazar Work Phone: Start: 06-22-2020 End: 06-22-2020 APPENDECTOMY LAPAROSCOPIC Magdi Katherine Sparrow Work Phone: Start: 06-22-2020 COVID-19, MOLECULAR Andrey Valdez Work Phone: Start: 06-22-2020 12 lead ECG Andrey Valdez Work Phone: Start: 06-22-2020 Ct abdomen & pelvis w/contrast material Andrey Valdez Work Phone: Start: 06-22-2020 Complete blood count with white cell differential, automated Andrey Valdez Work Phone: Start: 06-22-2020 Complete blood count with white cell differential, manual Andrey Valdez Work Phone: Start: 06-22-2020 Comprehensive metabolic 2000 panel - Serum or Plasma Andrey Valdez Work Phone: Start: 06-22-2020 Lipase [Enzymatic activity/volume] in Serum or Plasma Andrey Valdez Work Phone: Start: 06-22-2020 Choriogonadotropin ( test) [Presence] in Urine Andrey Valdez Work Phone: Start: 06-22-2020 Urinalysis Andrey Valdez Work Phone: Plan of Treatment Date Care Activity Detail Author Start: 04-22-2020 Influenza vaccination given Se quential Influenza Vaccine (#1) [facility] Start: 2012 Hepatitis C antibody , confirmatory test Hepatitis C Screening [facility] Start: 2009 HIV screening HIV Screening [facility] Start: 2006 Adolescent depressio n screening assessment Depression Screening (PHQ9) [facility] Start: 2005 Vaccination for tri n papillomavirus HPV Vaccines (1 - 2-dose series) [facility] Start: 1997 History and physical examination, annual for health maintenance Wellness Visit [facility] Start: 1994 Screening for malign ant neoplasm of cervix Pap Smear [facility] Start: 1994 Tetanus vaccination Tetanus: Every 1 0yrs [facility] Procedure on tissue specimen Tis kyara Exam Pathology and Cytology STAT Release Upon Ordering for 1 Occurrences starting 06/22/2020 [facility] Comment on above: Release Upon Orderin g for 1 Occurrences starting 06/22/2020 Payers Date Payer Category Payer Unknown [employer] PPO [id number] 2019-Present [id number] 2019 Unknown [id number] 1994 Unknown [id number] 1994 Unknown [id number] 1994 Unknown [id number] 1994 Unknown [id number] 1994 Unknown [id number] 1994 Unknown [id number] 1994 Unknown [id number] 1959 Unknown [id number] Social History Date Type Detail Facility Start: 06-23-2020 End: 07-08-2020 Tobacco smoking status IAIS Never smoker [facility] Start: 06-23-2020 End: 07-08-2020 Tobacco use and exposure Never used [facility] Start: 06-23-2020 End: 07-08-2020 Alcohol intake Ex-drinker (finding) [facility] Sex Assigned At Not on file [facility] Exposure to SARS-CoV-2 (event) Not sure [facility] Discharge Instructions * Instructions* Magdi Salazar MD - 06/23/[address] Salazar (Hernia Repair/Gallbladder) [phone] No Lifting, no bending, no pushing May shower, No bath - may tub bathe starting in one month Briefs, no shorts Limit walking for 7-10 days Ice compress to operative site for 48 hours (4x daily for 30 minutes each time) Abdominal binder on SNUGLY when up and about Leave dressing on for 5 days, then may leave open to air Low fat diet Even minor surgery can cause swelling and injury to the tissue and lead to pain. It is important tokeep your pain level low. This will help you heal more quickly. Your pain level is too high if you cannot walk, talk or breath normally, or if you cannot rest. You need plenty of rest so your body can heal properly. At the same time, you need some activity to keep your body systems working properly. Be sure to take your pain medicine as directed. Pain medicine is not supposed to take all your pain away, but to make you able to walk, breathe and rest comfortably. Call your doctor if your pain has not lessened within one (1) hour of taking pain medicine. Take the medicine the doctor prescribes,or any over the counter pain medicine, except aspirin products. Anesthesia: If you were asleep for your anesthetic, or received any medicine to help you relax, it may stay in your body for about twenty four(24) hours. Even if you feel normal, it can affect your judgement. Do not drive or operate any hazardous machinery for twenty four hours. Do not drink alcohol. You should not smoke, but if you do , be very careful of cigarettes and matches so that you don'tstart a fire. Smoke only in the presence of a responsible adult and do not smoke in bed , on the couch, or in a comfortable chair. After you get home: Unless you have been instructed otherwise, you may resume your normal diet, activity, and medicines. Keep your dressing on, clean and dry until you see your doctor has told you otherwise. If you had an IV ( Intravenous) The sight may be slightly sore. It should get better in thenex day or two. You may apply a warm washcloth to the dressing site if you wish. If it is getting worse, reddened or painful, it may be infected, so call the doctor. Call the surgeon if: 1. You have too much pain, persistent nausea or vomiting. 2. You have signs of infection such as fever, chills, or increased redness and swelling, or pus-like drainage from the wound. 3. You have increased bleeding or your wound opens up. 4. Your fingers or toes become bluish or very pale. IF YOU HAVE A PROBLEM OF A MEDICAL NATURE, CALL YOUR DOCTOR/EMERGENCY ROOM. [facility] EMERGENCY ROOM [phone] Make a follow-up appointment with your surgeon. Post Operative Instructions Dr Salazar (Hernia Repair/Gallbladder) [phone] No Lifting, no bending, no pushing May shower, No bath - may tub bathe starting in one month Briefs, no shorts Limit walking for 7-10 days Ice compress to operative site for 48 hours (4x daily for 30 minutes each time) Abdominal binder on SNUGLY when up and about Leave dressing on for 5 days, then may leave open to air Low fat diet Even minor surgery can cause swelling and injury to the tissue and lead to pain. It is important tokeep your pain level low. This will help you heal more quickly. Your pain level is too high if you cannot walk, talk or breath normally, or if you cannot rest. You need plenty of rest so your body can heal properly. At the same time, you need some activity to keep your body systems working properly. Be sure to take your pain medicine as directed. Pain medicine is not supposed to take all your pain away, but to make you able to walk, breathe and rest comfortably. Call your doctor if your pain has not lessened within one (1) hour of taking pain medicine. Take the medicine the doctor prescribes,or any over the counter pain medicine, except aspirin products. Anesthesia: If you were asleep for your anesthetic, or received any medicine to help you relax, it may stay in your body for about twenty four(24) hours. Even if you feel normal, it can affect your judgement. Do not drive or operate any hazardous machinery for twenty four hours. Do not drink alcohol. You should not smoke, but if you do , be very careful of cigarettes and matches so that you don'tstart a fire. Smoke only in the presence of a responsible adult and do not smoke in bed , on the couch, or in a comfortable chair. After you get home: Unless you have been instructed otherwise, you may resume your normal diet, activity, and medicines. Keep your dressing on, clean and dry until you see your doctor has told you otherwise. If you had an IV ( Intravenous) The sight may be slightly sore. It should get better in thenext day or two. You may apply a warm washcloth to the dressing site if you wish. If it is getting worse, reddened or painful, it may be infected, so call the doctor. Call the surgeon if: 1. You have too much pain, persistent nausea or vomiting. 2. You have signs of infection such as fever, chills, or increased redness and swelling, or pus-like drainage from the wound. 3. You have increased bleeding or your wound opens up. 4. Your fingers or toes become bluish or very pale. IF YOU HAVE A PROBLEM OF A MEDICAL NATURE, CALL YOUR DOCTOR/EMERGENCY ROOM. [facility] EMERGENCY ROOM [phone] Make a follow-up appointment with your surgeon. documented in this encounter* Attachments The following attachments cannot be sent through Care Everywhere. * Abdominal Pain (Icelandic) documented in this encounter Assessments Diagnosis Acute appendicitis with localized peritonitis, without perforation, abscess, or gangrene- Primary Diagnosis Abdominal pain, unspecified abdominal location- Primary Advance Directives No Advanced Directives Records FoundDocuments on File Type Date Recorded Patient Director Of Sustainable Design Expl anation Advance Directives and Livin g Will 06/22/2020 1:08 PM Documents on File Type Date Recorded Patient Director Of Sustainable Design Expl anation Advance Directives and Livin g Will 07/08/2020 2:09 PM Summary Purpose Family History No Family History Records FoundNo Family History Records FoundNo Family History Records Found Additional Source Comments Reason for Visit (unrecogniz ed section and content) Reason Comments Abdominal Pain Status Reason Specialty Diagnoses / Procedures Referre d By Contact Referred To Contact Diagnoses Acute appendicitis with localized peritonitis, without perforation, abscess, or gangrene Magdi Salazar MD - 06/22/2020 6:46 PM EST H&P Notes (unrecognized sect ion and content) Patient's name Mele Thompson, [facility] #[id number] Age [age] years old date of 1995 Chief complaint right lower quadrant pain History of present illness This is a 24-year-old lady who came to the emergency room with her who apparently had severe right-sided abdominal pain while she was shopping and subsequently passed out with accompanying discomfort in the right lower quadrant which she rated a 7/10. There was no vomiting there was no diarrhea she denies any fever but apparently has been having this off and on pain to a minor degree than now for the last month. She never saw her physician as she does not have a family physician is since she is young and healthy. She denies any dysuria frequency or hematuria she denies any abnormal vaginal discharge she also denies any diarrhea or any bowel issues Because of this she was seen in the emergency room and a white count showed a 20,000 white count and a CAT scan of the abdomen and pelvis was done showing evidence of acute appendicitis nonperforated. She was given 3.375 g of Zosyn in the emergency room IV piggyback she was kept n.p.o. n.p.o. her last oral intake is about noontime which is a glass of water. Personal history she denies smoking or intake of alcoholic beverages she is 0 para 0 her last menstrual period is 1 month ago and she is on control she just got January 2020. Family history is noncontributory Past surgical history she denies any Current medication control pills otherwise unremarkable note that she denies any allergies to medicine Review of system HEENT no headache no blackout except only today no blurring of vision gastrointestinal tract no nausea no vomiting her bowel movements regular daily and soft denies seeing any blood in the stool she has no hemoptysis. She has no hematemesis nor melena genitourinary tract no dysuria no frequency no hematuria no abdominal abnormal vaginal discharge musculoskeletal system is unremarkable Physical examination General service fairly nourished well-developed alert awake oriented in no acute distress Vital signs as noted in the emergency room record she is afebrile. HEENT eyes pupils equally reactive to light and accommodation extraocular muscles intact pinkish conjunctiva no jaundice there is a shallow half centimeter laceration over the left eyebrow from her recent fall no tenderness no bleeding neck is supple no jugular venous distention no bruit thyroid gland is not enlarged no nodes noted lungs clear breath sounds no rales or wheezing heart regular rate and rhythm no murmurs abdomen is flat soft no masses liver and spleen is not enlarged there is a scar from previous ring in the umbilical area there is mild right lower quadrant tenderness without guarding or rebound liver and spleen is not enlarged normoactive bowel sounds inguinal area showed no hernias lower extremity shows no edema and good pulses Please back no CVA tenderness spine is in the midline Work-up including lab work showed a white count of 20,000 with a shift to the left with a normal urinalysis Covid test was negative and urinalysis is unremarkable CT scan of the abdomen and pelvis was noted and was read as acute appendicitis with a distended swollen appendix at the right iliac area. Assessment right lower quadrant pain secondary to acute appendicitis Plan plan is to bring her up to the operating room for laparoscopic appendectomy has been discussed possible risks of bleeding wound infection and open appendectomy and injury to the bowel has been noted with possible open appendectomy she agreed to the above and consent was signed. documented in this encounter Andrey Valdez MD - 06/22/2020 4:03 PM Suly Rodriguez RN - 07/08/2020 4:48 PM Kate Abreu MD - 07/08/2020 1:53 PM Suly Rodriguez RN - 07/08/2020 1:48 PM EST ED Notes (unrecognized secti on and content) [facility] ED Attending Note: NAME: Mele Thompson 24 y.o. CSN: [id number] PCP: Physician No History: Chief Complaint: Abdominal Pain HPI: The history was obtained from the patient. Mele is a 24 y.o. female who presents with a chief complaint of Abdominal Pain. Abdominal Pain Associated symptoms: no chest pain, no constipation, no diarrhea, no fever, no hematuria, no nausea, no shortness of breath and no vomiting This is a 24-year-old female, presenting day for evaluation abdominal pain. She has been having abdominal pain on and off for the past few days, however, today got worse. She has a grocery store, when it hit her, and it was so bad, that it caused a spell where she briefly blacked out. . She fell to the ground, striking her head against a shelf, and has a small injury to her left eyebrow. She states that about a month and a half ago to 2 months ago, she thought that she might be having a miscarriage, and she had a period that was worse than normal. However, she was never diagnosed with a , never took any tests. She does use OCPs for control. Today, she states that the pain is suprapubic, and radiates to her right lower quadrant. She has no diarrhea, nausea, vomiting, dizziness. She did report that she had some lightheadedness prior to the episode. Currently, she reports no head or neck pain, no lightheadedness or dizziness. She does continue to have the abdominal pain. PMHx: History reviewed. No pertinent past medical history. PMSx: History reviewed. No pertinent surgical history. FAM. Hx: History reviewed. No pertinent family history. SOC. Hx: Social History Socioeconomic History Marital status: Spouse name: Not on file Number of children: Not on file Years of education: Not on file Highest education level: Not on file Occupational History Not on file Social Needs Financial resource strain: Not on file Food insecurity Worry: Not on file Inability: Not on file Transportation needs Medical: Not on file Non-medical: Not on file Tobacco Use Smoking status: Never Smoker Smokeless tobacco: Never Used Substance and Sexual Activity Alcohol use: Not Currently Drug use: Not Currently Sexual activity: Not on file Lifestyle Physical activity Days per week: Not on file Minutes per session: Not on file Stress: Not on file Relationships Social connections Talks on phone: Not on file Gets together: Not on file Attends methodist service: Not on file Active member of club or organization: Not on file Attends meetings of clubs or organizations: Not on file Relationship status: Not on file Other Topics Concern Not on file Social History Narrative Not on file MEDs: No current outpatient medications on file prior to encounter. ALL: No Known Allergies ROS: Review of Systems Constitutional: Negative for activity change, appetite change and fever. HENT: Negative for congestion and rhinorrhea. Eyes: Negative for photophobia, pain, redness and visual disturbance. Respiratory: Negative for apnea, chest tightness, shortness of breath and wheezing. Cardiovascular: Negative for chest pain and palpitations. Gastrointestinal: Positive for abdominal pain. Negative for constipation, diarrhea, nausea and vomiting. Genitourinary: Negative for difficulty urinating and hematuria. Musculoskeletal: Negative for arthralgias and myalgias. Skin: Negative for color change and rash. Allergic/Immunologic: Negative for environmental allergies and food allergies. Neurological: Positive for syncope and light-headedness. Negative for dizziness, numbness and headaches. Psychiatric/Behavioral: Negative for behavioral problems and confusion. Positives and pertinent negatives as per HPI. All other systems were reviewed and are negative. Physical Exam: Patient Vitals for the past 24 hrs: BP Temp Temp src Pulse Resp SpO2 Height Weight 06/22/20 1415 132/72 98.4 F (36.9 C) Tympanic 97 16 98 % 5' 7 59 kg (130 lb) Physical Exam Constitutional: General: She is not in acute distress. Appearance: She is not ill-appearing or diaphoretic. Comments: On approach, the patient is well-appearing, and in no acute distress. HENT: Head: Normocephalic and atraumatic. Right Ear: External ear normal. Left Ear: External ear normal. Eyes: General: No scleral icterus. Neck: Vascular: No JVD. Trachea: No tracheal deviation. Cardiovascular: Rate and Rhythm: Normal rate and regular rhythm. Pulses: Normal pulses. Heart sounds: Normal heart sounds. No murmur. No friction rub. No gallop. Pulmonary: Effort: Pulmonary effort is normal. No respiratory distress. Breath sounds: Normal breath sounds. No wheezing or rales. Chest: Chest wall: No tenderness. Abdominal: General: Abdomen is flat. There is no distension. Tenderness: There is abdominal tenderness in the right lower quadrant and suprapubic area. There is no right CVA tenderness or left CVA tenderness. Musculoskeletal: General: No deformity. Skin: General: Skin is warm and dry. Neurological: General: No focal deficit present. Mental Status: She is alert and oriented to person, place, and time. Psychiatric: Mood and Affect: Mood normal. Behavior: Behavior normal. Laboratory & Radiological Imaging (if done): Labs Reviewed URINALYSIS - Abnormal; Notable for the following components: Result Value Clarity, Urine Cloudy (*) Ketones, Urine 20 (*) Bacteria, Urine Few (*) All other components within normal limits Narrative: Microscopic examination is performed on all urinalysis samples and only positive findings are reported. The test for blood on the chemical analytic portion of urinalysis may also be positive due to hemoglobinuria and myoglobinuria and if red blood cells are present they are quantified by microscopic examination. CBC WITH AUTO DIFFERENTIAL - Abnormal; Notable for the following components: WBC 20.42 (*) Neutrophils Abs 18.51 (*) All other components within normal limits HCG URINE, QUALITATIVE - Normal COVID-19, MOLECULAR CBC AND DIFFERENTIAL Narrative: The following orders were created for panel order CBC and Differential. Procedure Abnormality Status --------- ------ CBC Auto Differential[[id number]] Abnormal Final result Please view results for these tests on the individual orders. COMPREHENSIVE METABOLIC PANEL LIPASE CT Abdomen Pelvis With IV Contrast Only Non-public Result 1. Acute appendicitis. The appendix is seen just anterior to the right common iliac artery and is distended approaching 9 mm with wall enhancement and surrounding fatty stranding. 2. Moderate amount of fecal matter in the proximal colon. The cecum is directed medially within the central anterior mid to upper pelvis with no bowel obstruction. 3. Some physiologic free fluid in the cul-de-sac. Some small follicles seen in the ovaries bilaterally. Results were called by Dr. Clifford Wilson to Dr. ANDREY VALDEZ on 06/22/2020 at 16:43. Workstation ID: [id number] Procedures: Procedures ED Course / Medical Decision Making: Is a 24-year-old female, presenting today for evaluation of abdominal pain, and a spell where she blacked out. She does not have any significant traumatic injuries, there is an abrasion over her left eyebrow, however, it does not need to be repaired, and I believe that trying to put a suture in it would cause more harm than good. Last oral intake was sometime last night. She has been n.p.o. since being here in our department. I did evaluate her syncope, and her EKG was normal as per my EKG note. Patient does have an elevated white count with a leukocytosis of 20.42. Urinalysis largely within normal limits. Urine test was negative. I was called by Dr. Lopez, of radiology, and we discussed the case, as he is having acute appendicitis. We discussed the results of the work up in the emergency department. I spoke to the patient, and expressed to her my desire to admit her for further evaluation and management by her surgery team. Spoke with Dr. Salazar, and discussed the case with him. He states that he will place a case request, and contact the nurse database administrator [employer]. Patient is to be kept n.p.o. He would like 3.375 of Zosyn given to the patient. He would like the patient admitted to his service. Clinical Impression: 1. Acute appendicitis with localized peritonitis, without perforation, abscess, or gangrene Disposition: hospitalize to Operating Room Andrey Valdez M.D. Attending Physician [facility] Emergency Departments 06/22/2020 Portions of this note may have been dictated utilizing voice recognition software. Unfortunately this leads to occasional typographical errors. If questions arise please do not hesitate to contact my office for clarification. (Please note that portions of this note have been completed with a voice recognition software. Efforts were made to correct any errors, but occasionally words are mis-transcribed.) Andrey Valdez MD 06/22/20 1703 documented in this encounter PT ambulates per self to lobby. Pt alert, oriented and stable at dc. ED PROVIDER NOTE [facility] EMERGENCY DEPARTMENT NAME: Mele Thompson AGE: 24 y.o. : 1995 VISIT DATE: 07/08/2020 CSN: [id number] PCP: Physician No Chief Complaint Patient presents with Abdominal Pain This is a 24-year-old female who is status post appendectomy June [address] Salazar presents to the emergency department with abdominal pain. Patient notes that she did rather well immediately after the surgery. However 2 or 3 days ago she started having abdominal pain. Would get better if she lay down. However it is progressively worsened and despite taking ibuprofen she continues to have abdominal pain. She notes this mostly in the periumbilical area. She states she is been having bowel movements that are normal. No constipation. No nausea or vomiting. No blood in the stools. No urgency frequency or dysuria. She does note that at times her back is painful. History reviewed. No pertinent past medical history. Past Surgical History: Procedure Laterality Date APPENDECTOMY LAPAROSCOPIC N/A 06/22/2020 Procedure: APPENDECTOMY LAPAROSCOPIC; Surgeon: Magdi Salazar MD; Location: Main OR; Service: General Surgery History reviewed. No pertinent family history. Social History Socioeconomic History Marital status: Spouse name: Not on file Number of children: Not on file Years of education: Not on file Highest education level: Not on file Occupational History Not on file Social Needs Financial resource strain: Not on file Food insecurity Worry: Not on file Inability: Not on file Transportation needs Medical: Not on file Non-medical: Not on file Tobacco Use Smoking status: Never Smoker Smokeless tobacco: Never Used Substance and Sexual Activity Alcohol use: Not Currently Drug use: Not Currently Sexual activity: Not on file Lifestyle Physical activity Days per week: Not on file Minutes per session: Not on file Stress: Not on file Relationships Social connections Talks on phone: Not on file Gets together: Not on file Attends methodist service: Not on file Active member of club or organization: Not on file Attends meetings of clubs or organizations: Not on file Relationship status: Not on file Other Topics Concern Not on file Social History Narrative Not on file No current outpatient medications on file prior to encounter. No Known Allergies Review of Systems Constitutional: Negative for chills and fever. HENT: Negative for congestion and sore throat. Eyes: Negative for redness and visual disturbance. Respiratory: Negative for cough and shortness of breath. Cardiovascular: Negative for chest pain and leg swelling. Gastrointestinal: Positive for abdominal pain. Negative for diarrhea, nausea and vomiting. Genitourinary: Negative for dysuria and hematuria. Musculoskeletal: Negative for arthralgias and neck stiffness. Skin: Negative for color change and rash. Neurological: Negative for facial asymmetry and headaches. Psychiatric/Behavioral: Negative for self-injury and suicidal ideas. Patient Vitals for the past 24 hrs: BP Temp Temp src Pulse Resp SpO2 Height Weight 07/08/20 1534 125/79 81 16 99 % 07/08/20 1350 115/69 98.5 F (36.9 C) Infrared (!) 114 18 95 % 5' 7 59 kg (130 lb) Physical Exam Vitals signs and nursing note reviewed. Constitutional: Appearance: She is well-developed. HENT: Head: Normocephalic and atraumatic. Eyes: Pupils: Pupils are equal, round, and reactive to light. Neck: Musculoskeletal: Normal range of motion and neck supple. Cardiovascular: Rate and Rhythm: Normal rate and regular rhythm. Pulmonary: Effort: Pulmonary effort is normal. No respiratory distress. Breath sounds: Normal breath sounds. Abdominal: General: There is no distension. Palpations: Abdomen is soft. Tenderness: There is generalized abdominal tenderness. There is guarding. Musculoskeletal: General: No deformity. Skin: General: Skin is warm and dry. Capillary Refill: Capillary refill takes less than 2 seconds. Neurological: Mental Status: She is alert and oriented to person, place, and time. Cranial Nerves: No cranial nerve deficit. Psychiatric: Behavior: Behavior normal. Laboratory & Radiographic Imaging (if done): Results for orders placed or performed during the hospital encounter of 07/08/20 BMP Result Value Ref Range Sodium 139 135 - 145 mmol/L Potassium 3.5 3.5 - 5.1 mmol/L Chloride 109 (H) 98 - 108 mmol/L Bicarbonate 23 21 - 32 mmol/L Anion Gap 11 10 - 20 mmol/L Glucose 95 65 - 99 mg/dL BUN 10 8 - 25 mg/dL Creatinine 0.85 0.40 - 1.10 mg/dL eGFR 96 >=60 mL/min/1.73 m2 BUN/Creatinine Ratio 11.8 10.0 - 20.0 Calcium 9.5 8.4 - 10.2 mg/dL Hepatic Function Panel (LFT) Result Value Ref Range Total Protein 7.9 6.0 - 8.0 g/dL Albumin 3.8 3.2 - 5.2 g/dL Total Bilirubin 0.3 0.0 - 1.3 mg/dL Bilirubin, Direct <0.1 0.0 - 0.4 mg/dL Alkaline Phosphatase 71 40 - 140 U/L AST 18 0 - 45 U/L ALT 31 14 - 65 U/L Lipase Result Value Ref Range Lipase 95 73 - 393 U/L Urinalysis Result Value Ref Range Color, Urine Yellow Colorless, Yellow Clarity, Urine Clear Clear Specific [place] 1.020 1.005 - 1.025 pH, Urine 7.5 (H) 5.0 - 7.0 Protein, Urine Negative Negative mg/dL Glucose, Urine Negative Negative mg/dL Ketones, Urine Negative Negative mg/dL Bilirubin, Urine Negative Negative Urobilinogen, Urine <2.0 <2.0 mg/dL Blood, Urine Negative Negative Nitrite, Urine Negative Negative Leukocyte Esterase, Urine Negative Negative Bacteria, Urine Rare (A) None Seen /hpf Squamous Epithelial 1 0 - 4 /hpf Urine Result Value Ref Range Beta-hCG, Ur, Qual Negative Negative Gold Top Result Value Ref Range Extra Tube Hold for add-ons. Light Blue Top Result Value Ref Range Extra Tube Hold for add-ons. CBC Auto Differential Result Value Ref Range WBC 8.07 4.50 - 11.00 K/mcL RBC 5.03 4.00 - 5.20 M/mcL Hemoglobin 14.7 12.0 - 16.0 g/dL Hematocrit 43.3 36.0 - 46.0 % MCV 86.1 80.0 - 100.0 fL MCH 29.2 26.0 - 34.0 pg MCHC 33.9 31.0 - 37.0 g/dL Platelets 228 150 - 400 K/mcL RDW - CV 12.0 11.6 - 14.8 % MPV 11.8 9.4 - 12.4 fL Neutrophils 64.1 % Lymphocytes 30.2 % Monocytes 5.0 % Eosinophils 0.5 % Basophils 0.2 % IG Percent 0.00 % Neutrophils Abs 5.17 1.70 - 7.00 K/mcL Lymphocytes Abs 2.44 0.90 - 4.00 K/mcL Monocytes Abs 0.40 0.30 - 0.90 K/mcL Eosinophils Abs 0.04 0.00 - 0.50 K/mcL Basophils Abs 0.02 0.00 - 0.30 K/mcL IG Absolute 0.00 0.00 - 0.30 K/mcL CT Abdomen Pelvis With IV Contrast Only Final Result 1. No acute infectious, inflammatory or obstructive process identified in the abdomen or pelvis. 2. Postsurgical changes from recent appendectomy. Workstation ID: [id number] Procedures MDM Number of Diagnoses or Management Options Abdominal pain, unspecified abdominal location Diagnosis management comments: Incisions are clean dry and intact and she does not have any peritoneal signs. CT scan of abdomen pelvis is reassuring. Lab work is also reassuring. Doubt UTI. No evidence of intra-abdominal abscess or perforation. Will discharge patient The patient has been informed that they may have pre-hypertension or hypertension based on a blood pressure reading in the Emergency Department. I recommend that the patient call the primary care provider listed on their discharge instructions or a physician of their choice as soon as possible to arrange follow-up in the next 4 weeks for further evaluation of possible pre-hypertension or hypertension. . Clinical Impression: 1. Abdominal pain, unspecified abdominal location ED Disposition ED Disposition Condition Comment Discharge Stable Mele Thompson discharged to home/self care in stable condition. Follow-up Information 1. Magdi Salazar MD. Specialty: General Surgery [address] [place] [id number] Contact information for after-discharge care Follow-up information has not been specified. Kate Mendoza MD 07/08/20 1620 PT states that she had an appendectomy on 06/22/20. Approx 2 days ago pt started to have generalized abdominal pain that is sharp and stabbing. Pt denies any nausea vomiting or diarrhea or drainage to surgical site. documented in this encounter Quick Note - Rafa Awan RN - 06/23/2020 9:18 AM ESTPlan of Care - Rafa Awan RN - 06/23/2020 8:50 AM ESTPlan of Delicia - Marylu Orozco RN - 06/23/2020 3:58 AM EST Miscellaneous Notes (unrecog nized section and content) 3 incisions along mid abdomen from lap appy. Top one noted to have scant pink drainage on dressing. Middle one clean and dry. Bottom one with scant pink drainage. Continue POC Problem: Pain Goal: Manage acute pain Outcome: Partially Met Goal: Manage chronic pain Outcome: Partially Met Goal: Reduced pain sensation Outcome: Partially Met Goal: Achievement of comfort function goal Outcome: Partially Met Problem: Actual or potential alteration in health Goal: Absence of healthcare acquired conditions Outcome: Partially Met Goal: Knowledge of Interdisciplinary Plan of Care Outcome: Partially Met Goal: Knowledge of Enviroment Outcome: Partially Met Post-op lap appy.Plan of care initiated. No change in drainage on op-sites. MELE THOMPSON STELLA [id number] 1995 DATE 06/22/2020 OPERATIVE REPORT SURGEON MAGDI SALAZAR MD ANESTHESIOLOGIST JAYLIN BUCKLEY MD REFERRING DOCTOR Emergency room physician. ANESTHESIA General endotracheal anesthesia. PREOPERATIVE DIAGNOSIS Right-sided abdominal pain secondary to acute appendicitis. POSTOPERATIVE DIAGNOSIS Acute suppurative retrocecal appendicitis. PROCEDURE PERFORMED Laparoscopic appendectomy. CLASSIFICATION Clean, contaminated. INDICATION FOR PROCEDURE A 24-year-old with off-and-on right lower quadrant pain which became severe today, and for which she was seen in the emergency room with white count of 20,000 and CAT scan finding of an acute appendicitis, nonperforated. Procedure has been explained to her. Possible risks of bleeding, wound infection, injury to the bowel have been discussed. Possibility of open appendectomy was likewise noted. She agreed to the above and consent was signed. Placed the patient supine, general endotracheal anesthesia was administered. The patient received Zosyn 3.375 in the emergency room IV piggyback. Time-out was called when every member of the operating libertarian was in and around the table. She was asked to void before coming into the operating room. Asepsis and antisepsis were done, and drapes were placed in the usual fashion. Time-out was called as noted. A single stab wound on the upper part of the umbilicus was carried out, followed by insertion of the Veress needle while lifting the abdominal wall with 2 towel clips. This was followed by insufflation of the abdominal cavity up to 15 mm pressure. Wound was increased in size, followed by insertion of a 5 mm trocar camera, which is that of a 5 mm camera was inserted, and initial laparoscopic examination of the abdominal cavity bi-quadrant was done. The patient's head was elevated and the patient tilted to the left side. Two other trocars were placed under direct vision. One is a 12 mm trocar at the suprapubic area, and another 5 mm trocar was placed between the umbilicus and the suprapubic area under direct vision. Examination of the right lower quadrant was done in the pelvic area after the patient was tilted more to the left side. There was no free fluid in the pelvis. Following the anterior tenia, the appendix was noted to be retrocecal and coiled, pointing retrocecally. A window was created between the appendix and that of the cecum, after which, an Endo-BRUNO was placed and fired. Meticulous dissection of the mesoappendix which was noted to be quite thickened was done with blunt dissection and with electrocautery. The rest were then transected with another firing of an Endo-BRNUO. There was no active bleeding noted. The staple lines were satisfactory and no active bleeding seen. The area was irrigated with normal saline until the return flow was clear. The appendix was then placed in an Endobag and was removed through the 12 mm port. Reinsertion of the trocar was done and repeat inspection of the right lower quadrant, and right subhepatic and perihepatic space was inspected. It was irrigated and drained until the return flow was clear. Satisfied with the above, the patient was then placed in the supine position. The 12 mm port was closed utilizing 0 Ethibond with an open technique. [id number] suture was placed after complete desufflation of the abdominal cavity. The remaining trocars were removed and the subcutaneous tissue was approximated with 4-0 Vicryl inverting stitch. The skin was approximated with Steri-Strip and occlusive dressing was used. Patient was extubated and transferred to recovery room in stable condition. FINDINGS Included the presence of acute retrocecal appendicitis which was superior to retrocecal in location and inflamed. There was no free fluid. ESTIMATED BLOOD LOSS 25 mL. SPECIMEN Consists of the acute appendicitis. MAGDI SALAZAR MD D 06/22/2020 20:33 [id number] T 06/23/2020 01:38 VMT/MODL Umbilical dressing saturated with light pink serous drainage.Pubic dressing 1/2 saturated with shadow of pink drainage. Brief Post Operative Note Patient Name: Mele Thompson : 1995 (24 y.o.) Date of Service: 06/22/2020 [facility]: [id number] Procedure(s): APPENDECTOMY LAPAROSCOPIC Pre-Operative Diagnoses: RIGHT SIDED ABDOMINAL PAIN - ACUTE APPENDICITIS Post-Operative Diagnoses: ACUTE RETROCECAL APPENDICITIS Surgeon(s) and Role: * Magdi Salazar MD - Primary Anesthesiologist: Jaylin Buckley MD Armament Mechanic: Tanisha Varghese RN Scrub Person Assist: Jadyn Putnam RN Operative findings: ACUTE SUPPURATIVE APPENDICITIS RETROCECAL Intra and immediate post-operative complications: NONE Type of anesthesia used: General Estimated blood loss: 25 ML Estimated urine output: Refer to surgical log Specimen(s): ID Type Source Tests Collected by Time Destination A : Tissue Appendix TISSUE EXAM Magdi Salazar MD 06/22/2020 194 Implant(s): * No implants in log * Drain(s): * No LDAs found * Wound(s): Wound 06/22/20 Surgical Wound Abdomen (Active) Magdi Salazar MD 06/22/2020 8:04 PM Associated Order(s): ECG 12 Lead ECG 12 Lead Date/Time: 06/22/2020 4:51 PM Performed by: Andrey Valdez MD Authorized by: Andrey Valdez MD Interpreted by ED attending physician Comparison: not compared with previous ECG Rhythm: sinus rhythm BPM: 85 ND Interval: 108 QRS Interval: 82 QT Interval: 426 Clinical impression: non-specific ECG documented in this encounter INFORMATION SOURCE (unrecogn ized section and content) DATE CREATED AUTHOR 07/13/2020 [facility] DATE CREATED AUTHOR AUTHOR'S ORGANIZ ATION 01/28/2023 [facility] DATE CREATED AUTHOR AUTHOR'S ORGANIZ ATION 09/13/2023 [facility] FOR RECORDS PERTAINING TO PATIENTS WHO ARE OR HAVE BEEN ENROLLED IN A CHEMICAL DEPENDENCY/SUBSTANCEABUSE PROGRAM, SOME INFORMATION MAY BE OMITTED. This clinical summary was aggregated from multiple sources. Caution should be exercised in using it in the provision of clinical care. This summary normalizes information from multiple sources, and as a consequence, information in this document may materially change the coding, format and clinical context of patient data. In addition, data may be omitted in some cases. CLINICAL DECISIONS SHOULD BE BASED ON THE PRIMARY CLINICAL RECORDS. [employer] provides no warranty or guarantee of the accuracy or completeness of information in this document.
== END 2023-10-27 13:36 | disposition home or self-care (01) ==
LOC: NOMS 13:36
PROVIDERS: Visit Provider Obstetrics & Gynecology
DX: Z34.91 Encounter for supervision of normal pregnancy, unspecified, first trimester (principal); Z3A.08 8 weeks gestation of pregnancy; N92.6 Irregular menstruation, unspecified
CPT/HCPCS: 76817

== ENCOUNTER 2023-11-09 14:05 | Outpatient (OUT) | payer BC, SELFPAY ==
--- OUTSIDE RECORDS SUMMARY | 2023-11-09 14:20 | XMS_ITS | CCD ---
Author Organization [facility] Care Team Providers Care Check Viewer Name Role Phone No, Physician Primary Care Provider Unavailabl e NO, PHYSICIAN Primary Care Unavailable MARIELLA, MAGDI REYNOSO Consulting Moon SALAZAR, MAGDI REYNOSO Attending Moon SALAZAR, MAGDI REYNOSO Admitting Unavamehran FELIZ, PHYSICIAN Primary Care Unavailable KELLY, KATE LUCERO Attending Unavailable KELLY, KATE LUCERO Admitting Unavailable REQUEST, DR FREEDMAN LISTED Primary Care Unavaila ble REINECK, DR STEW Haskins Admitting Unavailabl e REINECK, DR STEW Haskins Attending Unavailabl e GRECHJS ., SERGIO VASQUEZ Consulting Unavailabl e STRAWSER, DYEVI Consulting Unavailable REQUEST, DR FREEDMAN LISTED Primary [...] Unavailable CRISTI ., DR HUGHES Attending Unavailable CRISTI, ELLEN Attending Unavailable Medications Current Medications Medication Drug [...] mL/hr, Every 8 hours, First dose on Tue06/23/20 at 0200, For 3 doses Indication: Severe [...] HCGon 01-19-2023 HCG QUANT 67 mIU/mL Normal [facility] Comment on above: Performed By: #### P REGQNT #### [facility] [address] [place] [address] Dr. Tammi Fleming HCG RANGE SEE BELOW Normal [facility] Comment on above: Result Comment: 5-50 0.2-1 WEEK 50-500 1-2 WEEKS 100-5,000 2-3 WEEKS 500-10,000 3-4 WEEKS 1,000-50,000 4-5 WEEKS 10,000-100,000 5-6 WEEKS 15,000-200,000 6-8 WEEKS 10,000-100,000 2-3 MONTHS Performed By: #### P REGQNT #### [facility] [address] [place] [address] Dr. Tammi Fleming PREG QUANT HCGon 01-10-2023 HCG QUANT 231 mIU/mL Normal [facility] Comment on above: Performed By: #### P REGQNT #### [facility] [address] [place] [address] Dr. Tammi Fleming HCG RANGE SEE BELOW Normal [facility] Comment on above: Result Comment: 5-50 0.2-1 WEEK 50-500 1-2 WEEKS 100-5,000 2-3 WEEKS 500-10,000 3-4 WEEKS 1,000-50,000 4-5 WEEKS 10,000-100,000 5-6 WEEKS 15,000-200,000 6-8 WEEKS 10,000-100,000 2-3 MONTHS Performed By: #### P REGQNT #### [facility] [address] [place] [address] Dr. Tammi Fleming CBC AUTO DIFFon 01-04-2023 BASO # 0.0 103/ul Normal 0.0-0.1 [facility] Comment on above: Performed By: #### C BC #### [facility] [address] [place] [address] Dr. Tammi Fleming Basophils/100 WBC (Bld) 0.3 % Normal 0.2-2.0 [facility] Comment on above: Performed By: #### C BC #### [facility] [address] [place] [address] Dr. Tammi Fleming EO # 0.1 103/ul Normal 0.0-0.7 [facility] Comment on above: Performed By: #### C BC #### [facility] [address] [place] [address] Dr. Tammi Fleming Eosinophils/100 WBC (Bld) 0.8 % Critically low 0.9-7.0 [facility] Comment on above: Performed By: #### C BC #### [facility] [address] [place] [address] Dr. Tammi Fleming Erythrocyte distribution width (RBC) [Ratio] 12.0 % Normal 11.0-15.0 [facility] Comment on above: Performed By: #### C BC #### [facility] [address] [place] [address] Dr. Tammi Fleming Hematocrit (Bld) [Volume fraction] 42.6 % Normal 36.0-48.0 [facility] Comment on above: Performed By: #### C BC #### [facility] [address] [place] [address] Dr. Tammi Fleming Hemoglobin (Bld) [Mass/Vol] 14.5 g/dL Normal 12.0-16.0 [facility] Comment on above: Performed By: #### C BC #### [facility] [address] [place] [address] Dr. Tammi Fleming IG # 0.02 10e3/ul Normal 0.00-0.03 [facility] Comment on above: Performed By: #### C BC #### [facility] [address] [place] [address] Dr. Tammi Fleming IG % 0.3 % Normal 0.0-0.5 [facility] Comment on above: Performed By: #### C BC #### [facility] [address] [place] [address] Dr. Tammi Fleming LYMPH # 1.6 103/ul Normal 1.2-3.8 [facility] Comment on above: Performed By: #### C BC #### [facility] [address] [place] [address] Dr. Tammi Fleimng Lymphocytes/100 WBC (Bld) 19.9 % Critically low 20.5-60.0 [facility] Comment on above: Performed By: #### C BC #### [facility] [address] [place] [address] Dr. Tammi Fleming MANUAL DIFF REQ NO Normal [facility] Comment on above: Performed By: #### C BC #### [facility] [address] [place] [address] Dr. Tammi Fleming MCH (RBC) [Entitic mass] 29.8 pg Normal 26.7-34.0 [facility] Comment on above: Performed By: #### C BC #### [facility] [address] [place] [address] Dr. Tammi Fleming MCHC (RBC) [Mass/Vol] 34.0 g/dL Normal 29.9-35.2 [facility] Comment on above: Performed By: #### C BC #### [facility] [address] [place] [address] Dr. Tammi Fleming MCV (RBC) [Entitic vol] 87.7 fL Normal 81.0-99.0 [facility] Comment on above: Performed By: #### C BC #### [facility] [address] [place] [address] Dr. Tammi Fleming MONO # 0.4 103/ul Normal 0.3-0.8 [facility] Comment on above: Performed By: #### C BC #### [facility] [address] [place] [address] Dr. Tammi Fleming Monocytes/100 WBC (Bld) 5.0 % Normal 1.7-12.0 [facility] Comment on above: Performed By: #### C BC #### [facility] [address] [place] [address] Dr. Tammi Fleming NEUT # 5.8 103/ul Normal 1.4-6.5 [facility] Comment on above: Performed By: #### C BC #### [facility] [address] [place] [address] Dr. Tammi Fleming Neutrophils/100 WBC (Bld) 73.7 % Normal 43.0-75.0 [facility] Comment on above: Performed By: #### C BC #### [facility] [address] [place] [address] Dr. Tammi Fleming Platelet mean volume (Bld) [Entitic vol] 12.1 fL Normal 9.5-13.5 [facility] Comment on above: Performed By: #### C BC #### [facility] [address] [place] [address] Dr. Tammi Fleming PLT 184 103/ul Normal 150-450 [facility] Comment on above: Performed By: #### C BC #### [facility] [address] [place] [address] Dr. Tammi Fleming RBC 4.86 106/ul Normal 4.20-5.40 [facility] Comment on above: Performed By: #### C BC #### [facility] [address] [place] [address] Dr. Tammi Fleming WBC 7.9 103/ul Normal 4.0-11.0 [facility] Comment on above: Performed By: #### C BC #### [facility] [address] [address] [address] Tammi Fleming ER URINE PROFILEon 3 Bilirubin Ql (U) Negative Normal NEGATIVE [facility] Comment on above: Performed By: #### Angela CHRISTIE, UMICRO #### [facility] [address] [address] [address] Tammi Fleming Clarity (U) CLEAR Normal CLEAR [facility] Comment on above: Performed By: #### E SHAHNAZ, UMICRO #### [facility] [address] [place] [address] Dr. Tammi Fleming Color (U) LT. YELLOW Normal YELLOW [facility] Comment on above: Performed By: #### Angela CHRISTIE UMICRO #### [facility] [address] [place] [address] Dr. Tammi Fleming ERUAHD A micrscopic examina tion will be performed if indicated. Normal [facility] Comment on above: Performed By: #### Angela CHRISTIE UMICRO #### [facility] [address] [place] [address] Dr. Tammi Fleming Glucose Ql (U) Negative Normal NEGATIVE [facility] Comment on above: Performed By: #### Angela CHRISTIE UMICRO #### [facility] [address] [place] [address] Dr. Tammi Fleming Hemoglobin Ql (U) LARGE Abnormal NEGATIVE [facility] Comment on above: Performed By: #### Angela CHRISTIE UMICRO #### [facility] [address] [place] [address] Dr. Tammi Fleming Ketones Ql (U) Negative Normal NEGATIVE [facility] Comment on above: Performed By: #### Angela CHRISTIE UMICRO #### [facility] [address] [place] [address] Dr. Tammi Fleming LEUKOCYTES Negative Normal NEGATIVE [facility] Comment on above: Performed By: #### Angela CHRISTIE UMICRO #### [facility] [address] [place] [address] Dr. Tammi Fleming Nitrite Ql (U) Negative Normal NEGATIVE [facility] Comment on above: Performed By: #### CIRILO SORTO #### [facility] [address] [place] [address] Dr. Tammi Fleming pH (U) 7.0 [pH] Normal 5-9 [facility] Comment on above: Performed By: #### CIRILO SORTO #### [facility] [address] [place] [address] Dr. Tammi Fleming SPEC GRAVITY <=1.005 Abnormal 1.005-<=1.[address] [facility] Comment on above: Performed By: #### CIRILO SORTO #### [facility] [address] [place] [address] Dr. Tammi Fleming UA PROTEIN Negative Normal NEGATIVE/ TRACE [facility] Comment on above: Performed By: #### CIRILO SORTO #### [facility] [address] [place] [address] Dr. Tammi Fleming UR MICRO IND INDICATED Normal [facility] Comment on above: Performed By: #### CIRILO SORTO #### [facility] [address] [place] [address] Dr. Tammi Fleming Urobilinogen Qn (U) 0.2 {Elder'U}/dL Normal 0.2 - 1.0 [facility] Comment on above: Performed By: #### NAGA SORTORO #### [facility] [address] [place] [address] Dr. Tammi Fleming PREG QUANT HCGon 01-04-2023 HCG QUANT 4523 mIU/mL Normal [facility] Comment on above: Performed By: #### P REGQNT #### [facility] [address] [place] [address] Dr. Tammi Fleming HCG RANGE SEE BELOW Normal [facility] Comment on above: Result Comment: 5-50 0.2-1 WEEK 50-500 1-2 WEEKS 100-5,000 2-3 WEEKS 500-10,000 3-4 WEEKS 1,000-50,000 4-5 WEEKS 10,000-100,000 5-6 WEEKS 15,000-200,000 6-8 WEEKS 10,000-100,000 2-3 MONTHS Performed By: #### P REGQNT #### [facility] [address] [place] [address] Dr. Tammi Fleming URINE MICROSCOPIC ONLYon BACTERIA TRACE Abnormal NONE SEEN [facility] Comment on above: Performed By: #### E RUR, UMICRO #### [facility] [address] [place] [address] Dr. Tammi Fleming Bacteria identified Cx Nom (U) NOT INDICATED Normal [facility] Comment on above: Performed By: #### E RUR, UMICRO #### [facility] [address] [place] [address] Dr. Tammi Fleming CAST NONE SEEN Normal NONE SEEN [facility] Comment on above: Performed By: #### E JENNIFERR UMICRO #### [facility] [address] [place] [address] Dr. Tammi Fleming Crystals LM Nom (Urine sed) NONE SEEN Normal NONE SEEN [facility] Comment on above: Performed By: #### E SHAHNAZ UMICRO #### [facility] [address] [place] [address] Dr. Tammi Fleming Epithelial cells LM Ql (Urine sed) NONE SEEN Normal NONE SEEN /RARE [facility] Comment on above: Performed By: #### E JENNIFERR UMICRO #### [facility] [address] [place] [address] Dr. Tammi Fleming MUCOUS NONE SEEN Normal NONE SEEN [facility] Comment on above: Performed By: #### E RUR, UMICRO #### [facility] [address] [place] [address] Dr. Tammi Fleming RBC 2-5 Abnormal 0-2 [facility] Comment on above: Performed By: #### E RUR, UMICRO #### [facility] [address] [place] [address] Dr. Tammi Fleming WBC NONE SEEN Normal NONE SEEN [facility] Comment on above: Performed By: #### E RUR, UMICRO #### [facility] [address] [address] [address] Tammi Fleming US PREG TVon 01-04-2023 [...] by: DEYVI FELDER Date: 2023-01-04 18:08 Normal [facility] BMPon 07-08-2020 Anion gap [Moles/Vol] 11 mmol/L 10 - 20 mmol/L [facility] Calcium [Mass/Vol] 9.5 mg/dL 8.4 - 10. 2 mg/dL [facility] Chloride [Moles/Vol] 109 mmol/L High 98 - 108 mmol/L [facility] Creatinine [Mass/Vol] 0.85 mg/dL 0.40 - 1.10 [facility] GFR/1.73 sq M predicted among non-blacks MDRD (S/P/Bld) [Vol rate/Area] The eGFR should be used for monitoring renal function only and not for medication dosing. [facility] GFR/1.73 sq M.predicted CKD-EPI (S/P/Bld) [Vol rate/Area] 96 >=60 mL/min/1.73 m2 [facility] Glucose [Mass/Vol] 95 mg/dL 65 - 99 mg/dL [facility] HCO3 [Moles/Vol] 23 mmol/L 21 - 32 mmol/L [facility] Interpretation and review of laboratory results Abnormal [facility] Potassium [Moles/Vol] 3.5 mmol/L 3.5 - 5.1 mmol/L [facility] Sodium [Moles/Vol] 139 mmol/L 135 - 145 mmol/L [facility] Urea nitrogen [Mass/Vol] 10 mg/dL 8 - 25 mg/dL [facility] Urea nitrogen/Creatinin e [Mass ratio] 11.8 mg/mg [facility] CBC WITH AUTO DIFFERENTIALon 07-08-2020 Basophils (Bld) [#/Vol] 0.02 10*3/uL [facility] Basophils/100 WBC (Bld) 0.2 % [facility] Eosinophils (Bld) [#/Vol] 0.04 10*3/uL [facility] Eosinophils/100 WBC (Bld) 0.5 % [facility] Erythrocyte distribution width (RBC) [Entitic vol] 12.0 % 11.6 - 14.8 % [facility] Hematocrit (Bld) [Volume fraction] 43.3 % 36 - 46 % [facility] Hemoglobin (Bld) [Mass/Vol] 14.7 g/dL 12 - 16 g/dL [facility] Immature granulocytes (Bld) [#/Vol] 0.00 10*3/uL [facility] Immature granulocytes/100 WBC (Bld) 0.00 % [facility] Comment on above: The IG parameter is the percentage of metamyelocytes, myelocytes and promyelocytes. An immature granulocyte count (IG) of 1% or more suggests the possibility of infection, an IG count of 3% is very likely related to an infection. Lymphocytes (Bld) [#/Vol] 2.44 10*3/uL [facility] Lymphocytes/100 WBC (Bld) 30.2 % [facility] MCH (RBC) [Entitic mass] 29.2 pg 26 - 34 pg [facility] MCHC (RBC) [Mass/Vol] 33.9 g/dL 31 - 37 g/dL [facility] MCV (RBC) [Entitic vol] 86.1 fL 80 - 100 fL [facility] Monocytes (Bld) [#/Vol] 0.40 10*3/uL [facility] Monocytes/100 WBC (Bld) 5.0 % [facility] Neutrophils (Bld) [#/Vol] 5.17 10*3/uL [facility] Neutrophils/100 WBC (Bld) 64.1 % [facility] Platelet mean volume (Bld) [Entitic vol] 11.8 fL 9.4 - 12.4 fL [facility] Platelets (Bld) [#/Vol] 228 10*3/uL [facility] RBC (Bld) [#/Vol] 5.03 10*6/uL [facility] WBC (Bld) [#/Vol] 8.07 10*3/uL [facility] CT ABDOMEN PELVIS WITH IV CO NTRAST [...] TueJul 08, 2020 3:59:53 PM EST Normal [facility] Comment on above: Order Comment: Injur [...] changes from recent appendectomy. Workstation ID: [id number] [facility] EXAMINATION: CT ABDO MEN PELVIS [...] No acute or aggressive osseous abnormality identified. [facility] 1. No acute infectio us, inflammatory or obstructive process identified in the abdomen or pelvis. 2. Postsurgical changes from recent appendectomy. Workstation ID: [id number] [facility] Hepatic Function Panel (LFT) on 07-08-2020 Albumin [Mass/Vol] 3.8 g/dL 3.2 - 5.2 g/dL [facility] ALP [Catalytic activity/Vol] 71 U/L 40 - 140 U/L [facility] ALT [Catalytic activity/Vol] 31 U/L 14 - 65 U/L [facility] AST [Catalytic activity/Vol] 18 U/L 0 - 45 U/L [facility] Bilirubin [Mass/Vol] 0.3 mg/dL 0 - 1.3 mg/dL [facility] Bilirubin.conjugat ed [Mass/Vol] mg/dL 0 - 0.4 mg/dL [facility] Protein [Mass/Vol] 7.9 g/dL 6 - 8 g/dL [facility] alth Lipaseon 07-08-2020 Lipase [Catalytic activity/Vol] 95 U/L 73 - 393 U/L [facility] Otheron 07-08-2020 Interpretation and review of laboratory results Normal [facility] Extra Tube Hold for add-ons. [facility] Comment on above: Auto resulted. URINALYSISon 07-08-2020 Bacteria Auto Ql (U) Rare Abnormal None Seen /hpf [facility] Bilirubin Ql (U) Negative Negative [facility] th Clarity Refractometry automated (U) Clear Clear [facility] Color (U) Yellow Colorless, Yellow [facility] Epithelial cells.squamous Auto (Urine sed) [#/Area] 1 [facility] Glucose Auto test strip (U) [Mass/Vol] Negative Negative mg/dL [facility] Hemoglobin Auto test strip Ql (U) Negative Negative [facility] Interpretation and review of laboratory results Abnormal [facility] Ketones (U) [Mass/Vol] Negative Negative mg/dL [facility] Leukocyte esterase Auto test strip Ql (U) Negative Negative [facility] Nitrite Auto test strip Ql (U) Negative Negative [facility] pH (U) 7.5 [pH] High [facility] Protein (U) [Mass/Vol] Negative Negative mg/dL [facility] Specific gravity (U) [Rel density] 1.020 [facility] Urobilinogen (U) [Mass/Vol] <2.0 <2.0 mg/dL [facility] Microscopic examinat ion is performed on all urinalysis samples and only positive findings are reported. The test for blood on the chemical analytic portion of urinalysis may also be positive due to hemoglobinuria and myoglobinuria and if red blood cells are present they are quantified by microscopic examination. [facility] Urine Pregnancyon 07-08-2020 HCG ( test) Ql (U) Negative Negative [facility] Interpretation and review of laboratory results Normal [facility] CBC WITH AUTO DIFFERENTIALon 06-23-2020 Basophils (Bld) [#/Vol] 0.00 10*3/uL [facility] Basophils/100 WBC (Bld) 0.0 % [facility] Eosinophils (Bld) [#/Vol] 0.00 10*3/uL [facility] Eosinophils/100 WBC (Bld) 0.0 % [facility] Erythrocyte distribution width (RBC) [Entitic vol] 12.2 % 11.6 - 14.8 % [facility] Hematocrit (Bld) [Volume fraction] 37.2 % 36 - 46 % [facility] Hemoglobin (Bld) [Mass/Vol] 12.6 g/dL 12 - 16 g/dL [facility] Immature granulocytes (Bld) [#/Vol] 0.01 10*3/uL [facility] Immature granulocytes/100 WBC (Bld) 0.10 % [facility] Comment on above: The IG parameter is the percentage of metamyelocytes, myelocytes and promyelocytes. An immature granulocyte count (IG) of 1% or more suggests the possibility of infection, an IG count of 3% is very likely related to an infection. Interpretation and review of laboratory results Abnormal [facility] Lymphocytes (Bld) [#/Vol] 0.82 10*3/uL Low [facility] Lymphocytes/100 WBC (Bld) 6.8 % [facility] MCH (RBC) [Entitic mass] 29.3 pg 26 - 34 pg [facility] MCHC (RBC) [Mass/Vol] 33.9 g/dL 31 - 37 g/dL [facility] MCV (RBC) [Entitic vol] 86.5 fL 80 - 100 fL [facility] Monocytes (Bld) [#/Vol] 0.31 10*3/uL [facility] Monocytes/100 WBC (Bld) 2.6 % [facility] Neutrophils (Bld) [#/Vol] 10.86 10*3/uL High [facility] Neutrophils/100 WBC (Bld) 90.5 % [facility] Platelet mean volume (Bld) [Entitic vol] 12.1 fL 9.4 - 12.4 fL [facility] Platelets (Bld) [#/Vol] 197 10*3/uL [facility] RBC (Bld) [#/Vol] 4.30 10*6/uL [facility] ealth WBC (Bld) [#/Vol] 12.00 10*3/uL [facility] CBC WITH AUTO DIFFERENTIALon 06-22-2020 Basophils (Bld) [#/Vol] 0.02 10*3/uL [facility] Basophils/100 WBC (Bld) 0.1 % [facility] Eosinophils (Bld) [#/Vol] 0.00 10*3/uL [facility] Eosinophils/100 WBC (Bld) 0.0 % [facility] Erythrocyte distribution width (RBC) [Entitic vol] 12.0 % 11.6 - 14.8 % [facility] Hematocrit (Bld) [Volume fraction] 40.2 % 36 - 46 % [facility] Hemoglobin (Bld) [Mass/Vol] 14.0 g/dL 12 - 16 g/dL [facility] Immature granulocytes (Bld) [#/Vol] 0.02 10*3/uL [facility] Immature granulocytes/100 WBC (Bld) 0.10 % [facility] Comment on above: The IG parameter is the percentage of metamyelocytes, myelocytes and promyelocytes. An immature granulocyte count (IG) of 1% or more suggests the possibility of infection, an IG count of 3% is very likely related to an infection. Interpretation and review of laboratory results Abnormal [facility] Lymphocytes (Bld) [#/Vol] 1.20 10*3/uL [facility] Lymphocytes/100 WBC (Bld) 5.9 % [facility] MCH (RBC) [Entitic mass] 29.4 pg 26 - 34 pg [facility] MCHC (RBC) [Mass/Vol] 34.8 g/dL 31 - 37 g/dL [facility] MCV (RBC) [Entitic vol] 84.5 fL 80 - 100 fL [facility] Monocytes (Bld) [#/Vol] 0.67 10*3/uL [facility] Monocytes/100 WBC (Bld) 3.3 % [facility] Neutrophils (Bld) [#/Vol] 18.51 10*3/uL [facility] Neutrophils/100 WBC (Bld) 90.6 % [facility] Platelet mean volume (Bld) [Entitic vol] 11.7 fL 9.4 - 12.4 fL [facility] Platelets (Bld) [#/Vol] 223 10*3/uL [facility] RBC (Bld) [#/Vol] 4.76 10*6/uL [facility] WBC (Bld) [#/Vol] 20.42 10*3/uL [facility] COVID-19, MOLECULARon 2019 SARS-COV-2 (BERG ID) Not Detected Normal Not Detected [facility] Comment on above: Result Comment: This test was performed under the FDA's Emergency Use Authorization (EUA). Testing was performed using the [employer] ID NOW COVID-19 assay on the ID NOW platform. This test has not been approved for use in asymptomatic patients and its performance in this patient population has not been evaluated. Negative results do not rule out the presence of SARS-CoV-2/COVID-19. Fact sheets for the EUA can be found at the following links: For Healthcare Providers: https://www.fda.gov/media/520802/download For Patients: https://www.fda.gov/media/866136/download Performed By: #### L [id number] #### [facility] [address] [address] Kenenth Arrieta M.D. [id number] COVID-19, Molecularon 2019 Interpretation and review of laboratory results Normal [facility] SARS-CoV-2 Not Detected Not Detected [facility] Comment on above: This test was perfor med under the FDA's Emergency Use Authorization (EUA). Testing was performed using the [employer] ID NOW COVID-19 assay on the ID NOW platform. This test has not been approved for use in asymptomatic patients and its performance in this patient population has not been evaluated. Negative results do not rule out the presence of SARS-CoV-2/COVID-19. Fact sheets for the EUA can be found at the following links: For Healthcare Providers: https://www.fda.gov/media/377861/download For Patients: https://www.fda.gov/media/898923/download CT ABDOMEN PELVIS WITH IV CO NTRAST [...] seen directed medially within the central anterior kmf-ct-vgqrz pelvis. No bowel obstruction. Some physiologic free [...] is directed medially within the central anterior cbr-ze-ytveq pelvis with no bowel obstruction. 3. Some physiologic free fluid in the cul-de-sac. Some small follicles seen in the ovaries bilaterally. Results were called by Dr. Clifford Wilson to Dr. ANDREY VALDEZ on 06/22/2020 at 16:43. SHINT/adrianna Workstation ID: [id number] Dictated by: CHAD WILSON on TueJun 22, 2020 4:45:35 PM EST Transcribed by: ROSA ISELA BOWEN on TueJun 22, 2020 5:23:52 PM EST Finalized by: CHAD WILSON on TueJun 22, 2020 8:48:07 PM EST Normal [facility] Comment on above: Order Comment: Injur [...] seen directed medially within the central anterior pxy-vj-mdpdd pelvis. No bowel obstruction. Some physiologic free [...] is directed medially within the central anterior bic-ee-rcloc pelvis with no bowel obstruction. 3. Some physiologic free fluid in the cul-de-sac. Some small follicles seen in the ovaries bilaterally. Results were called by Dr. Clifford Wilson to Dr. ANDREY VALDEZ on 06/22/2020 at 16:43. GJT/dnb Workstation ID: [id number] [facility] 1. Acute appendiciti s. The appendix is seen just anterior to the right common iliac artery and is distended approaching 9 mm with wall enhancement and surrounding fatty stranding. 2. Moderate amount of fecal matter in the proximal colon. The cecum is directed medially within the central anterior qzw-qn-kmzmt pelvis with no bowel obstruction. 3. Some physiologic free fluid in the cul-de-sac. Some small follicles seen in the ovaries bilaterally. Results were called by Dr. Clifford Wilson to Dr. ANDREY VALDEZ on 06/22/2020 at 16:43. ADIS/adrianna Workstation ID: [id number] [facility] EXAMINATION: CT ABDO MEN PELVIS [...] seen directed medially within the central anterior ruo-xz-ffvbt pelvis. No bowel obstruction. Some physiologic free fluid in the cul-de-sac. Some follicles seen in the ovaries bilaterally. The uterus and urinary bladder unremarkable. No acute osseous abnormality. [facility] Comprehensive Metabolic Pane kendra 06-22-2020 Albumin [Mass/Vol] 4.0 g/dL 3.2 - 5.2 g/dL [facility] ALP [Catalytic activity/Vol] 63 U/L 40 - 140 U/L [facility] ALT [Catalytic activity/Vol] 27 U/L 14 - 65 U/L [facility] Anion gap [Moles/Vol] 10 mmol/L 10 - 20 mmol/L [facility] AST [Catalytic activity/Vol] 18 U/L 0 - 45 U/L [facility] Bilirubin [Mass/Vol] 0.5 mg/dL 0 - 1.3 mg/dL [facility] Calcium [Mass/Vol] 9.1 mg/dL 8.4 - 10. 2 mg/dL [facility] Chloride [Moles/Vol] 109 mmol/L High 98 - 108 mmol/L [facility] Creatinine [Mass/Vol] 0.83 mg/dL 0.40 - 1.10 [facility] GFR/1.73 sq M predicted among non-blacks MDRD (S/P/Bld) [Vol rate/Area] The eGFR should be used for monitoring renal function only and not for medication dosing. [facility] GFR/1.73 sq M.predicted CKD-EPI (S/P/Bld) [Vol rate/Area] 98 >=60 mL/min/1.73 m2 [facility] Glucose [Mass/Vol] 96 mg/dL 65 - 99 mg/dL [facility] HCO3 [Moles/Vol] 25 mmol/L 21 - 32 mmol/L [facility] Potassium [Moles/Vol] 3.7 mmol/L 3.5 - 5.1 mmol/L [facility] Protein [Mass/Vol] 7.8 g/dL 6 - 8 g/dL [facility]th Sodium [Moles/Vol] 140 mmol/L 135 - 145 mmol/L [facility] Urea nitrogen [Mass/Vol] 10 mg/dL 8 - 25 mg/dL [facility] Urea nitrogen/Creatinin e [Mass ratio] 12.0 mg/mg [facility] ECG 12-LEADon 06-22-2020 Andrey Valdez MD 2019 4:57 PM ECG 12 Lead Date/Time: 06/22/2020 4:51 PM Performed by: Andrey Valdez MD Authorized by: Andrey Valdez MD Interpreted by ED attending physician Comparison: not compared with previous ECG Rhythm: sinus rhythm BPM: 85 CT Interval: 108 QRS Interval: 82 QT Interval: 426 Clinical impression: non-specific ECG [facility] Lipaseon 06-22-2020 Lipase [Catalytic activity/Vol] 72 U/L Low 73 - 393 U/L [facility] Otheron 06-22-2020 Interpretation and review of laboratory results Abnormal [facility] URINALYSISon 06-22-2020 Bacteria Auto Ql (U) Few Abnormal None Seen /hpf [facility] Bilirubin Ql (U) Negative Negative [facility] th Clarity Refractometry automated (U) Cloudy Abnormal Clear [facility] Color (U) Yellow Colorless, Yellow [facility] Epithelial cells.squamous Auto (Urine sed) [#/Area] 3 [facility] Glucose Auto test strip (U) [Mass/Vol] Negative Negative mg/dL [facility] Hemoglobin Auto test strip Ql (U) Negative Negative [facility] Interpretation and review of laboratory results Abnormal [facility] Ketones (U) [Mass/Vol] 20 Abnormal Negative mg/dL [facility] Leukocyte esterase Auto test strip Ql (U) Negative Negative [facility] Nitrite Auto test strip Ql (U) Negative Negative [facility] pH (U) 7.0 [pH] [facility] Protein (U) [Mass/Vol] Negative Negative mg/dL [facility] Specific gravity (U) [Rel density] 1.020 [facility] Urobilinogen (U) [Mass/Vol] <2.0 <2.0 mg/dL [facility] WBC Auto (Urine sed) [#/Area] 2 [facility] Microscopic examinat ion is performed on all urinalysis samples and only positive findings are reported. The test for blood on the chemical analytic portion of urinalysis may also be positive due to hemoglobinuria and myoglobinuria and if red blood cells are present they are quantified by microscopic examination. [facility] Urine Pregnancyon 06-22-2020 HCG ( test) Ql (U) Negative Negative [facility] Interpretation and review of laboratory results Normal [facility] Vital Signs Date Time Vital Sign Value Performing Clinician Jennifer evans 07-08-2020 15:34-0500 BP Diastolic 79 mm[Hg] [facility] 07-08-2020 15:34-0500 BP Systolic 125 mm[Hg] [facility] 07-08-2020 15:34-0500 Pulse (Heart Rate) 81 /min [facility] 07-08-2020 15:34-0500 Pulse Oximetry 99 % [facility] 07-08-2020 15:34-0500 Respiratory Rate 16 /min [facility] 07-08-2020 13:50-0500 BMI (Body Mass Index) 20.36 kg/m2 [facility] 07-08-2020 13:50-0500 Body Temperature 98.49 [degF] [facility] 07-08-2020 13:50-0500 Body weight 58.[address] [facility] 07-08-2020 13:50-0500 Height 170.2 cm Kate Pop [facility] 06-23-2020 07:35-0500 Body Temperature 98.01 [degF] [facility] 06-23-2020 07:35-0500 BP Diastolic 68 mm[Hg] [facility] 06-23-2020 07:35-0500 BP Systolic 106 mm[Hg] [facility] 06-23-2020 07:35-0500 Pulse (Heart Rate) 75 /min [facility] 06-23-2020 07:35-0500 Pulse Oximetry 94 % [facility] 06-23-2020 07:35-0500 Respiratory Rate 16 /min [facility] 06-22-2020 14:15-0500 BMI (Body Mass Index) 20.36 kg/m2 [facility] 06-22-2020 14:15-0500 Body weight 58.97 kg [facility] 06-22-2020 14:15-0500 Height 170.2 cm [facility] Encounters Encounter Date Encounter Type Care Provider Facility Start: 10-27-2023 End: 10-27-2023 ambulatory ELLEN CRISTI Not Available Start: 09-12-2023 End: 09-12-2023 ambulatory ELLEN CRISTI Not Available Start: 01-19-[address] NONE LISTED REQUEST Facility: Start: 01-14-[address] NONE LISTED REQUEST Facility: Start: 01-10-2023 End: 01-11-[address] NONE LISTED REQUEST Facility: Start: 01-04-2023 End: 01-04-[address] NONE LISTED REQUEST Facility: Start: 07-08-2020 End: 07-08-2020 Emergency department patient visit PHYSICIAN [facility] Start: 07-08-2020 End: 07-08-2020 Emergency department patient visit Kate Pop Work Phone: [facility] Emergency Department Comment on above: Abdominal pain, unsp ecified abdominal location (Primary Dx) Start: 06-22-2020 End: 06-23-2020 Patient encounter procedure PHYSICIAN [facility] Start: 06-22-2020 End: 06-23-2020 Emergency department patient visit Andrey Valdez Work Phone: [facility] Med Surg Comment on above: Acute appendicitis w ith localized peritonitis, without perforation, abscess, or gangrene (Primary Dx) Procedures Date Procedure Procedure Detail Performing Clinician Start: 07-08-2020 Ct abdomen & pelvis w/contrast material Kate Pop Work Phone: Start: 07-08-2020 Basic metabolic 2000 panel - Serum or Plasma Kate Pop Work Phone: Start: 07-08-2020 Choriogonadotropin ( test) [Presence] in Urine Kate Pop Work Phone: Start: 07-08-2020 Complete blood count with white cell differential, automated Kate Pop Work Phone: Start: 07-08-2020 Complete blood count with white cell differential, manual Kate Pop Work Phone: Start: 07-08-2020 Hepatic function 2000 panel - Serum or Plasma Kate Pop Work Phone: Start: 07-08-2020 LIGHT BLUE TOP Kate Pop Work Phone: Start: 07-08-2020 LIGHT GREEN TOP Kate Pop Work Phone: Start: 07-08-2020 Lipase [Enzymatic activity/volume] in Serum or Plasma Kate Pop Work Phone: Start: 07-08-2020 RAINBOW DRAW Kate Pop Work Phone: Start: 07-08-2020 Urinalysis Kate Pop Work Phone: Start: 06-23-2020 Complete blood count [...] vaccination given Se quential Influenza Vaccine (#1) [facility] Start: 2012 Hepatitis C antibody , confirmatory test Hepatitis C Screening [facility] Start: 2009 HIV screening HIV Screening [facility] Start: 2006 Adolescent depressio n screening assessment Depression Screening (PHQ9) [facility] Start: 2005 Vaccination for tri n papillomavirus HPV Vaccines (1 - 2-dose series) [facility] Start: 1997 History and physical examination, annual for health maintenance Wellness Visit [facility] Start: 1994 Screening for malign ant neoplasm of cervix Pap Smear [facility] Start: 1994 Tetanus vaccination Tetanus: Every 1 0yrs [facility] Procedure on tissue specimen Tis kyara Exam Pathology and Cytology STAT Release Upon Ordering for 1 Occurrences starting 06/22/2020 [facility] Comment on above: Release Upon Orderin g for 1 Occurrences starting 06/22/2020 Payers Date Payer Category Payer Unknown [employer] PPO [id number] 2019-Present [id number] 2019 Unknown [id number] 1994 Unknown [id number] 1994 Unknown [id number] 1994 Unknown [id number] 1994 Unknown [id number] 1994 Unknown [id number] 1994 Unknown [id number] 1994 Unknown [id number] 1994 Unknown [id number] 1959 Unknown [id number] Social History Date Type Detail Facility Start: 06-23-2020 End: 07-08-2020 Tobacco smoking status WYIS Never smoker [facility] Start: 06-23-2020 End: 07-08-2020 Tobacco use and exposure Never used [facility] Start: 06-23-2020 End: 07-08-2020 Alcohol intake Ex-drinker (finding) [facility] Sex Assigned At Not on file [facility] Exposure to SARS-CoV-2 (event) Not sure [facility] Discharge Instructions * Instructions* Magdi Salazar MD - 06/23/[address] Salazar (Hernia Repair/Gallbladder) [phone] No Lifting, no bending, no pushing May [...] A MEDICAL NATURE, CALL YOUR DOCTOR/EMERGENCY ROOM. [facility] EMERGENCY ROOM [phone] Make a follow-up appointment with your surgeon. Post Operative Instructions Dr Salazar (Hernia Repair/Gallbladder) [phone] No Lifting, no bending, no pushing May [...] A MEDICAL NATURE, CALL YOUR DOCTOR/EMERGENCY ROOM. [facility] EMERGENC[facility] RO[facility] [phone] Make a follow-up appointment with your surgeon. documented in this encounter* Attachments The following attachments cannot be sent through Care Everywhere. 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 ED Attending Note: NAME: Mele Doll 24 y.o. 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 Patient is to be kept n.p.o. He would like 3.375 of Zosyn given to the patient. He would like the patient admitted to his service. Clinical Impression: 1. Acute appendicitis with localized peritonitis, without perforation, abscess, or gangrene Disposition: hospitalize to Operating Room Andrey Valdez M.D. Attending Physician [facility] Emergency Departments 06/22/2020 Portions of this note [...] and stable at dc. ED PROVIDER NOTE [facility] EMERGENCY [facility]PART[facility] NAME: Mele Doll AGE: 24 y.o. : 1995 VISIT DATE: 07/08/2020 CSN: [id number] PCP: Physician No Chief Complaint Patient presents [...] file Gets together: Not on file Attends baptist service: Not on file Active member of [...] Colorless, Yellow Clarity, Urine Clear Clear Specific [place] 1.020 1.005 - 1.025 pH, Urine 7.5 [...] ED Disposition Condition Comment Discharge Stable Mele Doll discharged to home/self care in stable condition. Follow-up Information 1. Magdi Salazar MD. Specialty: General Surgery [address] [facility] [address] Contact information for after-discharge care Follow-up information has not been specified. Kate Pop MD 07/08/20 1620 PT states that she had an appendectomy on 06/22/20. Approx 2 days ago pt started to have generalized abdominal pain that is sharp and stabbing. Pt denies any nausea vomiting or diarrhea or drainage to surgical site. documented in this encounter Quick Note - Rafa Awan RN - 06/23/2020 9:18 AM ESTPlan of Delicia - Rafa Awan RN - 06/23/2020 8:50 [...] No change in drainage on op-sites. MELE DOLL [id number] N [id number] 1995 DATE 06/22/2020 OPERATIVE REPORT SURGEON MAGDI [...] called when every member of the operating green party was in and around the table. She [...] then transected with another firing of an Endo-BRUNO. There was no active bleeding noted. The [...] utilizing 0 Ethibond with an open technique. Rorkbq-xb-aljpm suture was placed after complete desufflation of [...] appendicitis. MAGDI SALAZAR MD D 06/22/2020 20:33 [id number] T 06/23/2020 01:38 VMT/MODL Umbilical dressing saturated with light pink serous drainage.Pubic dressing 1/2 saturated with shadow of pink drainage. Brief Post Operative Note Patient Name: Mele Doll : 1995 (24 y.o.) Date of Service: 06/22/2020 [facility]: [id number] Procedure(s): APPENDECTOMY LAPAROSCOPIC Pre-Operative Diagnoses: RIGHT SIDED ABDOMINAL PAIN - ACUTE APPENDICITIS Post-Operative Diagnoses: ACUTE RETROCECAL APPENDICITIS Surgeon(s) and Role: * Magdi Salazar MD - Primary Anesthesiologist: Jaylin Buckley MD Rattling Machine Tender: Tanisha Varghese RN Scrub Person Assist: Jadyn Putnam RN Operative findings: ACUTE SUPPURATIVE APPENDICITIS RETROCECAL Intra and immediate post-operative complications: NONE Type of anesthesia used: General Estimated blood loss: 25 ML Estimated urine output: Refer to surgical log Specimen(s): ID Type Source Tests Collected by Time Destination A : Tissue Appendix TISSUE EXAM Magdi Salazar MD 06/22/20201946 Implant(s): * No implants in log * [...] previous ECG Rhythm: sinus rhythm BPM: 85 CT Interval: 108 QRS Interval: 82 QT Interval: 426 Clinical impression: non-specific ECG documented in this encounter INFORMATION SOURCE (unrecogn ized section and content) DATE CREATED AUTHOR 07/13/2020 [facility] DATE CREATED AUTHOR AUTHOR'S ORGANIZ ATION 01/28/2023 [facility] DATE CREATED AUTHOR AUTHOR'S ORGANIZ ATION 10/28/2023 [facility] FOR RECORDS PERTAINING TO PATIENTS WHO ARE [...] BE BASED ON THE PRIMARY CLINICAL RECORDS. [employer] provides no warranty or guarantee of the accuracy or completeness of information in this document.
[2023-11-09 16:16] LABS: Basophils Percent Auto 0.2 % (0.2-2.0); Eosinophils Percent Auto 0.5 % (0.9-7.0); Hematocrit 40.8 % (36.0-48.0); Hemoglobin 13.5 g/dL (12.0-16.0); Immature Granulocytes Abs Auto 0.03 10^3/uL (0.00-0.03); Immature Granulocytes Pct Auto 0.3 % (0.0-0.5); Lymphocytes Absolute Auto 1.5 10^3/uL (1.2-3.8); Lymphocytes Percent Auto 17.7 % (20.5-60.0); Mean Corpuscular HGB Conc 33.1 g/dL (29.9-35.2); Mean Corpuscular Hemoglobin 29.2 pg (26.7-34.0); Mean Corpuscular Volume 88.1 fL (81.0-99.0); Monocytes Absolute Auto 0.4 10^3/uL (0.3-0.8); Monocytes Percent Auto 4.4 % (1.7-12.0); Neutrophils Absolute Auto 6.6 10^3/uL (1.4-6.5); Neutrophils Percent Auto 76.9 % (43.0-75.0); Platelet Count 153 10^3/uL (150-450); Red Blood Count 4.63 10^6/uL (4.20-5.40); Red Cell Distribution Width 12.2 % (11.0-15.0); White Blood Count 8.6 10^3/uL (4.0-11.0)
[2023-11-09 16:49] LABS: Estimated Average Glucose 100 mg/dL; Glycohemoglobin A1C 5.1 % (4.5-6.2)
[2023-11-09 19:07] LABS: BOX Test Sent Out YES
[2023-11-11 05:08] LABS: HCV Ab Non Reactive (Non Reactive); HIV Ab/p24 Ag Screen Non Reactive (Non Reactive); Rubella Antibodies, IgG 1.03 index (Immune >0.99)
[2023-11-11 06:09] LABS: HBsAg Screen Negative (Negative)
[2023-11-11 12:11] LABS: Rapid Plasma Reagin, Quant Non Reactive titer (NonRea<1:1)
== END 2023-11-09 14:06 | disposition home or self-care (01) ==
LOC: LAB 14:07
PROVIDERS: Visit Provider Obstetrics & Gynecology
DX: N92.6 Irregular menstruation, unspecified (principal); Z36.0 Encounter for antenatal screening for chromosomal anomalies
CPT/HCPCS: 36415; 83036; 85025; 86592; 86762; 86803; 86850; 86900; 86901; 87086; 87340; 87389

== ENCOUNTER 2023-12-22 19:32 | Outpatient (REF) | payer BC, SELFPAY ==
--- OUTSIDE RECORDS SUMMARY | 2023-12-22 19:42 | XMS_ITS | CCD ---
Author Organization [facility] Care Team Providers Care Emergency Worker Name Role Phone No, Physician Primary Care [...] REINECK, DR STEW Haskins Attending Unavailabl e GRECHNY ., SERGIO VASQUEZ Consulting Unavailabl e STRAWSER, DEYVI Consulting Unavailable REQUEST, DR FREEDMAN LISTED Primary Care Unavaila ble CRISTI ., DR HUGHES Admitting Unavailable CRISTI ., DR HUGHES Consulting Unavailable CIRSTI ., DR HUGHES Attending Unavailable REQUEST, DR FREEDMAN LISTED Primary Care Unavaila ble CRISTI ., DR HUGHES Consulting Unavailable CRISTI ., DR HUGHES Attending Unavailable CRISTI ., DR HUGHES Admitting Unavailable REQUEST, DR FREEDMAN LISTED Primary Care Unavaila ble REQUEST, DR FREEDMAN LISTED Consulting Unavaila ble CRISTI ., DR HUGHES Admitting Unavailable CRISTI ., DR HUGHES Attending Unavailable CRISTI, ELLEN Attending Unavailable CRISTI, ELLEN Attending Unavailable Medications [...] HCGon 01-19-2023 HCG QUANT 67 mIU/mL Normal [facility] Comment on above: Performed By: #### P REGQNT #### [facility] [address] [place] [address] Dr. Tammi Fleming HCG RANGE SEE BELOW Normal The [facility] Comment on above: Result Comment: 5-50 0.2-1 WEEK 50-500 1-2 WEEKS 100-5,000 2-3 WEEKS 500-10,000 3-4 WEEKS 1,000-50,000 4-5 WEEKS 10,000-100,000 5-6 WEEKS 15,000-200,000 6-8 WEEKS 10,000-100,000 2-3 MONTHS Performed By: #### P REGQNT #### [facility] [address] [place] [address] Dr. Tammi Fleming PREG QUANT HCGon 01-10-2023 HCG QUANT 231 mIU/mL Normal [facility] Comment on above: Performed By: #### P REGQNT #### [facility] [address] [place] [address] Dr. Tammi Fleming HCG RANGE SEE BELOW Normal [facility] Comment on above: Result Comment: 5-50 0.2-1 WEEK 50-500 1-2 WEEKS 100-5,000 2-3 WEEKS 500-10,000 3-4 WEEKS 1,000-50,000 4-5 WEEKS 10,000-100,000 5-6 WEEKS 15,000-200,000 6-8 WEEKS 10,000-100,000 2-3 MONTHS Performed By: #### P REGQNT #### [facility] [address] [place] [address] Dr. Tammi Fleming CBC AUTO DIFFon 01-04-2023 BASO # 0.0 103/ul Normal 0.0-0.1 [facility] Comment on above: Performed By: #### C BC #### [facility] [address] [place] [address] Dr. Tammi Fleming Basophils/100 WBC (Bld) 0.3 % Normal 0.2-2.0 [facility] Comment on above: Performed By: #### C BC #### [facility] [address] [place] [address] Dr. Tammi Fleming EO # 0.1 103/ul Normal 0.0-0.7 [facility] Comment on above: Performed By: #### C BC #### [facility] [address] [place] [address] Dr. Tammi Fleming Eosinophils/100 WBC (Bld) 0.8 % Critically low 0.9-7.0 [facility] Comment on above: Performed By: #### C BC #### [facility] [address] [place] [address] Dr. Tammi Fleming Erythrocyte distribution width (RBC) [Ratio] 12.0 % Normal 11.0-15.0 [facility] Comment on above: Performed By: #### C BC #### [facility] [address] [place] [address] Dr. Tammi Fleming Hematocrit (Bld) [Volume fraction] 42.6 % Normal 36.0-48.0 [facility] Comment on above: Performed By: #### C BC #### [facility] [address] [place] [address] Dr. Tammi Fleming Hemoglobin (Bld) [Mass/Vol] 14.5 g/dL Normal 12.0-16.0 [facility] Comment on above: Performed By: #### C BC #### [facility] [address] [place] [address] Dr. Tammi Fleming IG # 0.02 10e3/ul Normal 0.00-0.03 [facility] Comment on above: Performed By: #### C BC #### [facility] [address] [place] [address] Dr. Tammi Fleming IG % 0.3 % Normal 0.0-0.5 [facility] Comment on above: Performed By: #### C BC #### [facility] [address] [place] [address] Dr. Tammi Fleming LYMPH # 1.6 103/ul Normal 1.2-3.8 [facility] Comment on above: Performed By: #### C BC #### [facility] [address] [place] [address] Dr. Tammi Fleming Lymphocytes/100 WBC (Bld) 19.9 % Critically low 20.5-60.0 [facility] Comment on above: Performed By: #### C BC #### [facility] [address] [place] [address] Dr. Tammi Fleming MANUAL DIFF REQ NO Normal [facility] Comment on above: Performed By: #### C BC #### [facility] [address] [place] [address] Dr. Tammi Fleming MCH (RBC) [Entitic mass] 29.8 pg Normal 26.7-34.0 [facility] Comment on above: Performed By: #### C BC #### [facility] [address] [place] [address] Dr. Tammi Fleming MCHC (RBC) [Mass/Vol] 34.0 g/dL Normal 29.9-35.2 [facility] Comment on above: Performed By: #### C BC #### [facility] [address] [place] [address] Dr. Tammi Fleming MCV (RBC) [Entitic vol] 87.7 fL Normal 81.0-99.0 [facility] Comment on above: Performed By: #### C BC #### [facility] [address] [place] [address] Dr. Tammi Fleming MONO # 0.4 103/ul Normal 0.3-0.8 [facility] Comment on above: Performed By: #### C BC #### [facility] [address] [place] [address] Dr. Tammi Fleming Monocytes/100 WBC (Bld) 5.0 % Normal 1.7-12.0 [facility] Comment on above: Performed By: #### C BC #### [facility] [address] [place] [address] Dr. Tammi Fleming NEUT # 5.8 103/ul Normal 1.4-6.5 [facility] Comment on above: Performed By: #### C BC #### [facility] [address] [place] [address] Dr. Tammi Fleming Neutrophils/100 WBC (Bld) 73.7 % Normal 43.0-75.0 [facility] Comment on above: Performed By: #### C BC #### [facility] [address] [place] [address] Dr. Tammi Fleming Platelet mean volume (Bld) [Entitic vol] 12.1 fL Normal 9.5-13.5 [facility] Comment on above: Performed By: #### C BC #### [facility] [address] [place] [address] Dr. Tammi Fleming PLT 184 103/ul Normal 150-450 [facility] Comment on above: Performed By: #### C BC #### [facility] [address] [place] [address] Dr. Tammi Fleming RBC 4.86 106/ul Normal 4.20-5.40 [facility] Comment on above: Performed By: #### C BC #### [facility] [address] [place] [address] Dr. Tammi Fleming WBC 7.9 103/ul Normal 4.0-11.0 [facility] Comment on above: Performed By: #### C BC #### [facility] [address] [address] [address] Tammi Fleming ER URINE PROFILEon 3 Bilirubin Ql (U) Negative Normal NEGATIVE [facility] Comment on above: Performed By: #### Angela CHRISTIE UMICRO #### [facility] [address] [address] [address] Tammi Fleming Clarity (U) CLEAR Normal CLEAR [facility] Comment on above: Performed By: #### Angela CHRISTIE UMICRO #### [facility] [address] [address] [address] Tammi Fleming Color (U) LT. YELLOW Normal YELLOW [facility] Comment on above: Performed By: #### Angela CHRISTIE UMICRO #### [facility] [address] [place] [address] Dr. Tammi Fleming ERUAHD A micrscopic examina tion will be performed if indicated. Normal [facility] Comment on above: Performed By: #### Angela CHRISTIE UMICRO #### [facility] [address] [place] [address] Dr. Tammi Fleming Glucose Ql (U) Negative Normal NEGATIVE [facility] Comment on above: Performed By: #### Angela CHRISTIE UMICRO #### [facility] [address] [place] [address] Dr. Tammi Fleming Hemoglobin Ql (U) LARGE Abnormal NEGATIVE [facility] Comment on above: Performed By: #### Angela CHRISTIE UMICRO #### [facility] [address] [address] [address] Tammi Fleming Ketones Ql (U) Negative Normal NEGATIVE [facility] Comment on above: Performed By: #### Angela CHRISTIE UMICRO #### [facility] [address] [place] [address] Dr. Tammi Fleming LEUKOCYTES Negative Normal NEGATIVE [facility] Comment on above: Performed By: #### Angela CHRISTIE UMICRO #### [facility] [address] [place] [address] Dr. Tammi Fleming Nitrite Ql (U) Negative Normal NEGATIVE [facility] Comment on above: Performed By: #### CIRILO SORTO #### [facility] [address] [place] [address] Dr. Tammi Fleming pH (U) 7.0 [pH] Normal 5-9 [facility] Comment on above: Performed By: #### CIRILO SORTO #### [facility] [address] [place] [address] Dr. Tammi Fleming SPEC GRAVITY <=1.005 Abnormal 1.005-<=1.025 [facility] Comment on above: Performed By: #### CIRILO SORTO #### [facility] [address] [place] [address] Dr. Tammi Fleming UA PROTEIN Negative Normal NEGATIVE/ TRACE [facility] Comment on above: Performed By: #### CIRILO SORTO #### [facility] [address] [place] [address] Dr. Tammi Fleming UR MICRO IND INDICATED Normal [facility] Comment on above: Performed By: #### CIRILO SORTO #### [facility] [address] [place] [address] Dr. Tammi Fleming Urobilinogen Qn (U) 0.2 {Elder'U}/dL Normal 0.2 - 1.0 [facility] Comment on above: Performed By: #### CIRILO SORTO #### [facility] [address] [place] [address] Dr. Tammi Fleming PREG QUANT HCGon 01-04-2023 HCG QUANT 4523 mIU/mL Normal [facility] Comment on above: Performed By: #### P REGQNT #### [facility] [address] [place] [address] Dr. Tammi Fleming HCG RANGE SEE BELOW Normal [facility] Comment on above: Result Comment: 5-50 0.2-1 WEEK 50-500 1-2 WEEKS 100-5,000 2-3 WEEKS 500-10,000 3-4 WEEKS 1,000-50,000 4-5 WEEKS 10,000-100,000 5-6 WEEKS 15,000-200,000 6-8 WEEKS 10,000-100,000 2-3 MONTHS Performed By: #### P REGQNT #### [facility] [address] [place] [address] Dr. Tammi Fleming URINE MICROSCOPIC ONLYon BACTERIA TRACE Abnormal NONE SEEN [facility] Comment on above: Performed By: #### Angela CHRISTIE UMICRO #### [facility] [address] [place] [address] Dr. Tammi Fleming Bacteria identified Cx Nom (U) NOT INDICATED Normal [facility] Comment on above: Performed By: #### Angela CHRISTIE UMICRO #### [facility] [address] [place] [address] Dr. Tammi Fleming CAST NONE SEEN Normal NONE SEEN [facility] Comment on above: Performed By: #### Angela CHRISTIE UMICRO #### [facility] [address] [place] [address] Dr. Tammi Fleming Crystals LM Nom (Urine sed) NONE SEEN Normal NONE SEEN [facility] Comment on above: Performed By: #### Angela CHRISTIE UMICRO #### [facility] [address] [place] [address] Dr. Tammi Fleming Epithelial cells LM Ql (Urine sed) NONE SEEN Normal NONE SEEN /RARE [facility] Comment on above: Performed By: #### Angela CHRISTIE UMICRO #### [facility] [address] [place] [address] Dr. Tammi Fleming MUCOUS NONE SEEN Normal NONE SEEN [facility] Comment on above: Performed By: #### Angela CHRISTIE UMICRO #### [facility] [address] [place] [address] Dr. Tammi Fleming RBC 2-5 Abnormal 0-2 [facility] Comment on above: Performed By: #### Angela CHRISTIE UMICRO #### [facility] [address] [place] [address] Dr. Tammi Fleming WBC NONE SEEN Normal NONE SEEN [facility] Comment on above: Performed By: #### E CIRILO CHRISTIE #### [facility] [address] [address] [address] Tammi Fleming US PREG TVon 01-04-2023 [...] DEYVI FELDER Date: 2023-01-04 18:08 Normal [facility] BMPon 07-08-2020 Anion gap [Moles/Vol] 11 mmol/L 10 - 20 mmol/L [facility] Calcium [Mass/Vol] 9.5 mg/dL 8.4 - 10. 2 mg/dL [facility] Chloride [Moles/Vol] 109 mmol/L High 98 - 108 mmol/L [facility] Creatinine [Mass/Vol] 0.85 mg/dL 0.40 - 1.10 [facility] GFR/1.73 sq M predicted among non-blacks MDRD (S/P/Bld) [Vol rate/Area] The eGFR should be used for monitoring renal function only and not for medication dosing. [facility] GFR/1.73 sq M.predicted CKD-EPI (S/P/Bld) [Vol rate/Area] 96 >=60 mL/min/1.73 m2 [facility] Glucose [Mass/Vol] 95 mg/dL 65 - 99 mg/dL [facility] HCO3 [Moles/Vol] 23 mmol/L 21 - 32 mmol/L [facility] Interpretation and review of laboratory results Abnormal [facility] Potassium [Moles/Vol] 3.5 mmol/L 3.5 - 5.1 mmol/L [facility] Sodium [Moles/Vol] 139 mmol/L 135 - 145 mmol/L [facility] Urea nitrogen [Mass/Vol] 10 mg/dL 8 - 25 mg/dL [facility] Urea nitrogen/Creatinin e [Mass ratio] 11.8 mg/mg [facility] CBC WITH AUTO DIFFERENTIALon 07-08-2020 Basophils (Bld) [#/Vol] 0.02 10*3/uL [facility] Basophils/100 WBC (Bld) 0.2 % [facility] Eosinophils (Bld) [#/Vol] 0.04 10*3/uL [facility] Eosinophils/100 WBC (Bld) 0.5 % [facility] Erythrocyte distribution width (RBC) [Entitic vol] 12.0 % 11.6 - 14.8 % [facility] Hematocrit (Bld) [Volume fraction] 43.3 % 36 - 46 % [facility] Hemoglobin (Bld) [Mass/Vol] 14.7 g/dL 12 - 16 g/dL [facility] Immature granulocytes (Bld) [#/Vol] 0.00 10*3/uL [facility] Immature granulocytes/100 WBC (Bld) 0.00 % [facility] Comment on above: The IG parameter is the percentage of metamyelocytes, myelocytes and promyelocytes. An immature granulocyte count (IG) of 1% or more suggests the possibility of infection, an IG count of 3% is very likely related to an infection. Lymphocytes (Bld) [#/Vol] 2.44 10*3/uL [facility] Lymphocytes/100 WBC (Bld) 30.2 % [facility] MCH (RBC) [Entitic mass] 29.2 pg 26 - 34 pg [facility] MCHC (RBC) [Mass/Vol] 33.9 g/dL 31 - 37 g/dL [facility] MCV (RBC) [Entitic vol] 86.1 fL 80 - 100 fL [facility] Monocytes (Bld) [#/Vol] 0.40 10*3/uL [facility] Monocytes/100 WBC (Bld) 5.0 % [facility] Neutrophils (Bld) [#/Vol] 5.17 10*3/uL [facility] Neutrophils/100 WBC (Bld) 64.1 % [facility] Platelet mean volume (Bld) [Entitic vol] 11.8 fL 9.4 - 12.4 fL [facility] Platelets (Bld) [#/Vol] 228 10*3/uL [facility] RBC (Bld) [#/Vol] 5.03 10*6/uL [facility] WBC (Bld) [#/Vol] 8.07 10*3/uL [facility] CT ABDOMEN PELVIS WITH IV CO [...] Workstation ID: [id number] Dictated by: MAYNOR KABA Jul 08, 2020 3:59:53 PM EST Transcribed by: MAYNOR KABA TueJul 08, 2020 3:59:53 PM EST Finalized by: MAYNOR KABA on TueJul 08, 2020 3:59:53 PM EST Normal [facility] Comment on above: Order Comment: Injur y/Trauma [...] changes from recent appendectomy. Workstation ID: [id number] [facility] EXAMINATION: CT ABDO MEN PELVIS WITH IV [...] No acute or aggressive osseous abnormality identified. [facility] 1. No acute infectio us, inflammatory or obstructive process identified in the abdomen or pelvis. 2. Postsurgical changes from recent appendectomy. Workstation ID: [id number] [facility] Hepatic Function Panel (LFT) on 07-08-2020 Albumin [Mass/Vol] 3.8 g/dL 3.2 - 5.2 g/dL [facility] ALP [Catalytic activity/Vol] 71 U/L 40 - 140 U/L [facility] ALT [Catalytic activity/Vol] 31 U/L 14 - 65 U/L [facility] AST [Catalytic activity/Vol] 18 U/L 0 - 45 U/L [facility] Bilirubin [Mass/Vol] 0.3 mg/dL 0 - 1.3 mg/dL [facility] Bilirubin.conjugat ed [Mass/Vol] mg/dL 0 - 0.4 mg/dL [facility] Protein [Mass/Vol] 7.9 g/dL 6 - 8 g/dL [facility] alth Lipaseon 07-08-2020 Lipase [Catalytic activity/Vol] 95 U/L 73 - 393 U/L [facility] Otheron 07-08-2020 Interpretation and review of laboratory results Normal [facility] Extra Tube Hold for add-ons. [facility] Comment on above: Auto resulted. URINALYSISon 07-08-2020 Bacteria Auto Ql (U) Rare Abnormal None Seen /hpf [facility] Bilirubin Ql (U) Negative Negative [facility] th Clarity Refractometry automated (U) Clear Clear [facility] Color (U) Yellow Colorless, Yellow [facility] Epithelial cells.squamous Auto (Urine sed) [#/Area] 1 [facility] Glucose Auto test strip (U) [Mass/Vol] Negative Negative mg/dL [facility] Hemoglobin Auto test strip Ql (U) Negative Negative [facility] Interpretation and review of laboratory results Abnormal [facility] Ketones (U) [Mass/Vol] Negative Negative mg/dL [facility] Leukocyte esterase Auto test strip Ql (U) Negative Negative [facility] Nitrite Auto test strip Ql (U) Negative Negative [facility] pH (U) 7.5 [pH] High [facility] Protein (U) [Mass/Vol] Negative Negative mg/dL [facility] Specific gravity (U) [Rel density] 1.020 [facility] Urobilinogen (U) [Mass/Vol] <2.0 <2.0 mg/dL [facility] Microscopic examinat ion is performed on all urinalysis samples and only positive findings are reported. The test for blood on the chemical analytic portion of urinalysis may also be positive due to hemoglobinuria and myoglobinuria and if red blood cells are present they are quantified by microscopic examination. [facility] Urine Pregnancyon 07-08-2020 HCG ( test) Ql (U) Negative Negative [facility] Interpretation and review of laboratory results Normal [facility] CBC WITH AUTO DIFFERENTIALon 06-23-2020 Basophils (Bld) [#/Vol] 0.00 10*3/uL [facility] Basophils/100 WBC (Bld) 0.0 % [facility] Eosinophils (Bld) [#/Vol] 0.00 10*3/uL [facility] Eosinophils/100 WBC (Bld) 0.0 % [facility] Erythrocyte distribution width (RBC) [Entitic vol] 12.2 % 11.6 - 14.8 % [facility] Hematocrit (Bld) [Volume fraction] 37.2 % 36 - 46 % [facility] Hemoglobin (Bld) [Mass/Vol] 12.6 g/dL 12 - 16 g/dL [facility] Immature granulocytes (Bld) [#/Vol] 0.01 10*3/uL [facility] Immature granulocytes/100 WBC (Bld) 0.10 % [facility] Comment on above: The IG parameter is the percentage of metamyelocytes, myelocytes and promyelocytes. An immature granulocyte count (IG) of 1% or more suggests the possibility of infection, an IG count of 3% is very likely related to an infection. Interpretation and review of laboratory results Abnormal [facility] Lymphocytes (Bld) [#/Vol] 0.82 10*3/uL Low [facility] Lymphocytes/100 WBC (Bld) 6.8 % [facility] MCH (RBC) [Entitic mass] 29.3 pg 26 - 34 pg [facility] MCHC (RBC) [Mass/Vol] 33.9 g/dL 31 - 37 g/dL [facility] MCV (RBC) [Entitic vol] 86.5 fL 80 - 100 fL [facility] Monocytes (Bld) [#/Vol] 0.31 10*3/uL [facility] Monocytes/100 WBC (Bld) 2.6 % [facility] Neutrophils (Bld) [#/Vol] 10.86 10*3/uL High [facility] Neutrophils/100 WBC (Bld) 90.5 % [facility] Platelet mean volume (Bld) [Entitic vol] 12.1 fL 9.4 - 12.4 fL [facility] Platelets (Bld) [#/Vol] 197 10*3/uL [facility] RBC (Bld) [#/Vol] 4.30 10*6/uL [facility] ealth WBC (Bld) [#/Vol] 12.00 10*3/uL [facility] CBC WITH AUTO DIFFERENTIALon 06-22-2020 Basophils (Bld) [#/Vol] 0.02 10*3/uL [facility] Basophils/100 WBC (Bld) 0.1 % [facility] Eosinophils (Bld) [#/Vol] 0.00 10*3/uL [facility] Eosinophils/100 WBC (Bld) 0.0 % [facility] Erythrocyte distribution width (RBC) [Entitic vol] 12.0 % 11.6 - 14.8 % [facility] Hematocrit (Bld) [Volume fraction] 40.2 % 36 - 46 % [facility] Hemoglobin (Bld) [Mass/Vol] 14.0 g/dL 12 - 16 g/dL [facility] Immature granulocytes (Bld) [#/Vol] 0.02 10*3/uL [facility] Immature granulocytes/100 WBC (Bld) 0.10 % [facility] Comment on above: The IG parameter is the percentage of metamyelocytes, myelocytes and promyelocytes. An immature granulocyte count (IG) of 1% or more suggests the possibility of infection, an IG count of 3% is very likely related to an infection. Interpretation and review of laboratory results Abnormal [facility] Lymphocytes (Bld) [#/Vol] 1.20 10*3/uL [facility] Lymphocytes/100 WBC (Bld) 5.9 % [facility] MCH (RBC) [Entitic mass] 29.4 pg 26 - 34 pg [facility] MCHC (RBC) [Mass/Vol] 34.8 g/dL 31 - 37 g/dL [facility] MCV (RBC) [Entitic vol] 84.5 fL 80 - 100 fL [facility] Monocytes (Bld) [#/Vol] 0.67 10*3/uL [facility] Monocytes/100 WBC (Bld) 3.3 % [facility] Neutrophils (Bld) [#/Vol] 18.51 10*3/uL [facility] Neutrophils/100 WBC (Bld) 90.6 % [facility] Platelet mean volume (Bld) [Entitic vol] 11.7 fL 9.4 - 12.4 fL [facility] Platelets (Bld) [#/Vol] 223 10*3/uL [facility] RBC (Bld) [#/Vol] 4.76 10*6/uL [facility] ealth WBC (Bld) [#/Vol] 20.42 10*3/uL [facility] COVID-19, MOLECULARon 2019 SARS-COV-2 (BERG ID) Not Detected Normal Not Detected [facility] Comment on above: Result Comment: This test was performed under the FDA's Emergency Use Authorization (EUA). Testing was performed using the [employer] ID NOW COVID-19 assay on the ID NOW platform. This test has not been approved for use in asymptomatic patients and its performance in this patient population has not been evaluated. Negative results do not rule out the presence of SARS-CoV-2/COVID-19. Fact sheets for the EUA can be found at the following links: For Healthcare Providers: https://www.fda.gov/media/255908/download For Patients: https://www.fda.gov/media/237557/download Performed By: #### L [id number] #### [place] [id number] Kenneth Arrieta M.D. [id number] COVID-19, Molecularon 2019 Interpretation and review of laboratory results Normal [facility] SARS-CoV-2 Not Detected Not Detected [facility] Comment on above: This test was perfor med under the FDA's Emergency Use Authorization (EUA). Testing was performed using the [employer] ID NOW COVID-19 assay on the ID Hull platform. This test has not been approved for use in asymptomatic patients and its performance in this patient population has not been evaluated. Negative results do not rule out the presence of SARS-CoV-2/COVID-19. Fact sheets for the EUA can be found at the following links: For Healthcare Providers: https://www.fda.gov/media/940166/download For Patients: https://www.fda.gov/media/703948/download CT ABDOMEN PELVIS WITH IV CO NTRAST [...] seen directed medially within the central anterior ztw-jy-fmtjd pelvis. No bowel obstruction. Some physiologic free [...] is directed medially within the central anterior ggy-pu-wpbmc pelvis with no bowel obstruction. 3. Some physiologic free fluid in the cul-de-sac. Some small follicles seen in the ovaries bilaterally. Results were called by Dr. Clifford Wilson to Dr. ANDREY VALDEZ on 06/22/2020 at 16:43. GJT/adrianna Workstation ID: [id number] Dictated by: CHAD WILSON on TueJun 22, 2020 4:45:35 PM EST Transcribed by: ROSA ISELA BOWEN on TueJun 22, 2020 5:23:52 PM EST Finalized by: CHAD WILSON on TueJun 22, 2020 8:48:07 PM EST Normal [facility] Comment on above: Order Comment: Injur y/Trauma [...] seen directed medially within the central anterior jyt-fj-urfdu pelvis. No bowel obstruction. Some physiologic free [...] is directed medially within the central anterior uxq-po-rfplu pelvis with no bowel obstruction. 3. Some physiologic free fluid in the cul-de-sac. Some small follicles seen in the ovaries bilaterally. Results were called by Dr. Clifford Wilson to Dr. ANDREY VALDEZ on 06/22/2020 at 16:43. GJT/dnsamm Workstation ID: [id number] [facility] 1. Acute appendiciti s. The appendix is seen just anterior to the right common iliac artery and is distended approaching 9 mm with wall enhancement and surrounding fatty stranding. 2. Moderate amount of fecal matter in the proximal colon. The cecum is directed medially within the central anterior ouo-qn-rwoiy pelvis with no bowel obstruction. 3. Some physiologic free fluid in the cul-de-sac. Some small follicles seen in the ovaries bilaterally. Results were called by Dr. Clifford Wilson to Dr. ANDREY VALDEZ on 06/22/2020 at 16:43. GJT/dnb Workstation ID: [id number] [facility] EXAMINATION: CT ABDO MEN PELVIS WITH IV [...] seen directed medially within the central anterior smz-wj-mfvtb pelvis. No bowel obstruction. Some physiologic free fluid in the cul-de-sac. Some follicles seen in the ovaries bilaterally. The uterus and urinary bladder unremarkable. No acute osseous abnormality. [facility] Comprehensive Metabolic Pane kendra 06-22-2020 Albumin [Mass/Vol] 4.0 g/dL 3.2 - 5.2 g/dL [facility] ALP [Catalytic activity/Vol] 63 U/L 40 - 140 U/L [facility] ALT [Catalytic activity/Vol] 27 U/L 14 - 65 U/L [facility] Anion gap [Moles/Vol] 10 mmol/L 10 - 20 mmol/L [facility] AST [Catalytic activity/Vol] 18 U/L 0 - 45 U/L [facility] Bilirubin [Mass/Vol] 0.5 mg/dL 0 - 1.3 mg/dL [facility] Calcium [Mass/Vol] 9.1 mg/dL 8.4 - 10. 2 mg/dL [facility] Chloride [Moles/Vol] 109 mmol/L High 98 - 108 mmol/L [facility] Creatinine [Mass/Vol] 0.83 mg/dL 0.40 - 1.10 [facility] GFR/1.73 sq M predicted among non-blacks MDRD (S/P/Bld) [Vol rate/Area] The eGFR should be used for monitoring renal function only and not for medication dosing. [facility] GFR/1.73 sq M.predicted CKD-EPI (S/P/Bld) [Vol rate/Area] 98 >=60 mL/min/1.73 m2 [facility] Glucose [Mass/Vol] 96 mg/dL 65 - 99 mg/dL [facility] HCO3 [Moles/Vol] 25 mmol/L 21 - 32 mmol/L [facility] Potassium [Moles/Vol] 3.7 mmol/L 3.5 - 5.1 mmol/L [facility] Protein [Mass/Vol] 7.8 g/dL 6 - 8 g/dL [facility] al[facility] Sodium [Moles/Vol] 140 mmol/L 135 - 145 mmol/L [facility] Urea nitrogen [Mass/Vol] 10 mg/dL 8 - 25 mg/dL [facility] Urea nitrogen/Creatinin e [Mass ratio] 12.0 mg/mg [facility] ECG 12-LEADon 06-22-2020 Andrey Valdez MD 2019 4:57 PM ECG 12 Lead Date/Time: 06/22/2020 4:51 PM Performed by: Andrey Valdez MD Authorized by: Andrey Valdez MD Interpreted by ED attending physician Comparison: not compared with previous ECG Rhythm: sinus rhythm BPM: 85 OK Interval: 108 QRS Interval: 82 QT Interval: 426 Clinical impression: non-specific ECG [facility] Lipaseon 06-22-2020 Lipase [Catalytic activity/Vol] 72 U/L Low 73 - 393 U/L [facility] Otheron 06-22-2020 Interpretation and review of laboratory results Abnormal [facility] URINALYSISon 06-22-2020 Bacteria Auto Ql (U) Few Abnormal None Seen /hpf [facility] Bilirubin Ql (U) Negative Negative [facility] th Clarity Refractometry automated (U) Cloudy Abnormal Clear [facility] Color (U) Yellow Colorless, Yellow [facility] Epithelial cells.squamous Auto (Urine sed) [#/Area] 3 [facility] Glucose Auto test strip (U) [Mass/Vol] Negative Negative mg/dL [facility] Hemoglobin Auto test strip Ql (U) Negative Negative [facility] Interpretation and review of laboratory results Abnormal [facility] Ketones (U) [Mass/Vol] 20 Abnormal Negative mg/dL [facility] Leukocyte esterase Auto test strip Ql (U) Negative Negative [facility] Nitrite Auto test strip Ql (U) Negative Negative [facility] pH (U) 7.0 [pH] [facility] Protein (U) [Mass/Vol] Negative Negative mg/dL [facility] Specific gravity (U) [Rel density] 1.020 [facility] Urobilinogen (U) [Mass/Vol] <2.0 <2.0 mg/dL [facility] WBC Auto (Urine sed) [#/Area] 2 [facility] Microscopic examinat ion is performed on all urinalysis samples and only positive findings are reported. The test for blood on the chemical analytic portion of urinalysis may also be positive due to hemoglobinuria and myoglobinuria and if red blood cells are present they are quantified by microscopic examination. [facility] Urine Pregnancyon 06-22-2020 HCG ( test) Ql (U) Negative Negative [facility] Interpretation and review of laboratory results Normal [facility] Vital Signs Date Time Vital Sign Value Performing Clinician Jennifer evans 07-08-2020 15:34-0500 BP Diastolic 79 mm[Hg] [facility] 07-08-2020 15:34-0500 BP Systolic 125 mm[Hg] [facility] 07-08-2020 15:34-0500 Pulse (Heart Rate) 81 /min [facility] 07-08-2020 15:34-0500 Pulse Oximetry 99 % [facility] 07-08-2020 15:34-0500 Respiratory Rate 16 /min [facility] 07-08-2020 13:50-0500 BMI (Body Mass Index) 20.36 kg/m2 [facility] 07-08-2020 13:50-0500 Body Temperature 98.49 [degF] [facility] 07-08-2020 13:50-0500 Body weight 58.97 kg [facility] 07-08-2020 13:50-0500 Height 170.2 cm Kate Pop [facility] 06-23-2020 07:35-0500 Body Temperature 98.01 [degF] [facility] 06-23-2020 07:35-0500 BP Diastolic 68 mm[Hg] [facility] 06-23-2020 07:35-0500 BP Systolic 106 mm[Hg] [facility] 06-23-2020 07:35-0500 Pulse (Heart Rate) 75 /min [facility] 06-23-2020 07:35-0500 Pulse Oximetry 94 % [facility] 06-23-2020 07:35-0500 Respiratory Rate 16 /min [facility] 06-22-2020 14:15-0500 BMI (Body Mass Index) 20.36 kg/m2 [facility] 06-22-2020 14:15-0500 Body weight 58.97 kg [facility] 06-22-2020 14:15-0500 Height 170.2 cm [facility] Encounters Encounter Date Encounter Type Care Provider Facility Start: 11-24-2023 End: 11-24-2023 ambulatory ELLEN CRISTI Not Available Start: 10-27-2023 End: 10-27-2023 ambulatory ELLEN CRISTI Not Available Start: 09-12-2023 End: 09-12-2023 ambulatory ELLEN CRISTI Not Available Start: 01-19-[address] NONE LISTED REQUEST Facility: Start: 01-14-[address] NONE LISTED REQUEST Facility: Start: 01-10-2023 End: 01-11-[address] NONE LISTED REQUEST Facility: Start: 01-04-2023 End: 01-04-[address] NONE LISTED REQUEST Facility: Start: 07-08-2020 End: 07-08-2020 Emergency department patient visit PHYSICIAN NO [facility] Start: 07-08-2020 End: 07-08-2020 Emergency department patient visit Kate Pop Work Phone: [facility] Emergency Department Comment on above: Abdominal pain, unsp ecified abdominal location (Primary Dx) Start: 06-22-2020 End: 06-23-2020 Patient encounter procedure PHYSICIAN [facility] Start: 06-22-2020 End: 06-23-2020 Emergency department patient visit Andrey Valdez Work Phone: [facility] Med Surg Comment on above: Acute appendicitis [...] vaccination given Se quential Influenza Vaccine (#1) [facility] Start: 2012 Hepatitis C antibody , confirmatory test Hepatitis C Screening [facility] Start: 2009 HIV screening HIV Screening [facility] Start: 2006 Adolescent depressio n screening assessment Depression Screening (PHQ9) [facility] Start: 2005 Vaccination for tri n papillomavirus HPV Vaccines (1 - 2-dose series) [facility] Start: 1997 History and physical examination, annual for health maintenance Wellness Visit [facility] Start: 1994 Screening for malign ant neoplasm of cervix Pap Smear [facility] Start: 1994 Tetanus vaccination Tetanus: Every 1 0yrs [facility] Procedure on tissue specimen Tis kyara Exam Pathology and Cytology STAT Release Upon Ordering for 1 Occurrences starting 06/22/2020 [facility] Comment on above: Release Upon Orderin g for 1 Occurrences starting 06/22/2020 Payers Date Payer Category Payer Unknown [employer] PPO [id number] 2019-Present [id number] 2019 Unknown [id number] 1994 Unknown [id number] 1994 Unknown [id number] 1994 Unknown [id number] 1994 Unknown [id number] 1994 Unknown [id number] 1994 Unknown [id number] 1994 Unknown [id number] 1994 Unknown [id number] 1994 Unknown [id number] 1959 Unknown [id number] Social History Date Type Detail Facility Start: 06-23-2020 End: 07-08-2020 Tobacco smoking status NHIS Never smoker [facility] Start: 06-23-2020 End: 07-08-2020 Tobacco use and exposure Never used [facility] Start: 06-23-2020 End: 07-08-2020 Alcohol intake Ex-drinker (finding) [facility] Sex Assigned At Not on file [facility] Exposure to SARS-CoV-2 (event) Not sure [facility] Discharge Instructions * Instructions* Magdi Salazar MD - 06/23/[address] Salazar (Hernia Repair/Gallbladder) [phone] No Lifting, no bending, no pushing May [...] A MEDICAL NATURE, CALL YOUR DOCTOR/EMERGENCY ROOM. [facility] EMERGENCY ROOM [phone] Make a follow-up appointment with your surgeon. Post Operative Instructions Dr Salazar (Hernia Repair/Gallbladder) [phone] No Lifting, no bending, no pushing May [...] A MEDICAL NATURE, CALL YOUR DOCTOR/EMERGENCY ROOM. [facility] EMERGENCY ROOM [phone] Make a follow-up appointment with your surgeon. documented in this encounter* Attachments The following attachments cannot be sent through Care Everywhere. 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 CSN: [id number] PCP: Physician No History: Chief Complaint: Abdominal [...] file Gets together: Not on file Attends episcopalian service: Not on file Active member of [...] Procedure Abnormality Status --------- ------ CBC Auto Differential[[id number]] Abnormal Final result Please view results for [...] a case request, and contact the nurse legal administrator montessori lead teacher. Patient is to be kept n.p.o. He would like 3.375 of Zosyn given to the patient. He would like the patient admitted to his service. Clinical Impression: 1. Acute appendicitis with localized peritonitis, without perforation, abscess, or gangrene Disposition: hospitalize to Operating Room Andrey Valdez M.D. Attending Physician [facility] Emergency Departments 06/22/2020 Portions of this note [...] and stable at dc. ED PROVIDER NOTE [facility] EMERGENCY DEPARTMENT NAME: Mele Doll AGE: 24 y.o. : 1995 VISIT DATE: 07/08/2020 CSN: [id number] PCP: Physician No Chief Complaint Patient presents [...] N/A 06/22/2020 Procedure: APPENDECTOMY LAPAROSCOPIC; Surgeon: Magdi aSlazar MD; Location: Main OR; Service: General Surgery [...] file Gets together: Not on file Attends episcopalian service: Not on file Active member of [...] Colorless, Yellow Clarity, Urine Clear Clear Specific [place] 1.020 1.005 - 1.025 pH, Urine [...] Magdi Salazar MD. Specialty: General Surgery [facility] [address] Contact information for after-discharge care Follow-up information [...] change in drainage on op-sites. MELE DOLL [facility] [id number] N [id number] 1995 DATE 06/22/2020 OPERATIVE REPORT SURGEON MAGDI [...] utilizing 0 Ethibond with an open technique. Ptzbcp-tl-swhtl suture was placed after complete desufflation of [...] appendicitis. MAGDI SALAZAR MD D 06/22/2020 20:33 [id number] T 06/23/2020 01:38 VMT/MODL Umbilical dressing saturated with light pink serous drainage.Pubic dressing 1/2 saturated with shadow of pink drainage. Brief Post Operative Note Patient Name: Mele Doll : 1995 (24 y.o.) Date of Service: 06/22/2020 CSN: [id number] Procedure(s): APPENDECTOMY LAPAROSCOPIC Pre-Operative Diagnoses: RIGHT SIDED ABDOMINAL PAIN - ACUTE APPENDICITIS Post-Operative Diagnoses: ACUTE RETROCECAL APPENDICITIS Surgeon(s) and Role: * Magdi Salazar MD - Primary Anesthesiologist: Jaylin Buckley MD Front End Manager: Tanisha Varghese RN Scrub Person Assist: Jadyn [...] previous ECG Rhythm: sinus rhythm BPM: 85 OK Interval: 108 QRS Interval: 82 QT Interval: 426 Clinical impression: non-specific ECG documented in this encounter INFORMATION SOURCE (unrecogn ized section and content) DATE CREATED AUTHOR 07/13/2020 [facility] DATE CREATED AUTHOR AUTHOR'S ORGANIZ ATION 01/28/2023 [facility] DATE CREATED AUTHOR AUTHOR'S ORGANIZ ATION 11/25/2023 [facility] FOR RECORDS PERTAINING TO PATIENTS WHO ARE [...] BE BASED ON THE PRIMARY CLINICAL RECORDS. [employer] provides no warranty or guarantee of the accuracy or completeness of information in this document.
[2023-12-28 10:09] LABS: Age Gdln ACOG Testing Note (.); IGP, rfx Aptima HPV ASCU Note (.)
== END 2023-12-22 19:33 | disposition home or self-care (01) ==
LOC: LAB 19:32
PROVIDERS: Visit Provider Obstetrics & Gynecology
DX: Z01.419 Encounter for gynecological examination (general) (routine) without abnormal findings (principal)
CPT/HCPCS: G0145

== ENCOUNTER 2024-01-26 09:57 | Outpatient (OUT) | payer BC, SELFPAY ==
--- NOTE | 2024-01-26 10:00 | US_ITS ---
[address] [address] Patient Name: MELE DOLL MRN: [id number] date: 1995 Sex: F Assigned Patient Location: [facility] Current Patient Location: [facility] Accession/Order Number: [id number] Exam Date: 01/26/2024 10:01 Report Date: 01/26/2024 11:31 At the request of: ELLEN COLIN Procedure: US OB cervical length EXAMINATION: US OB anatomy, US OB cervical length HISTORY: ANATOMY COMPARISON: No relevant comparison available. TECHNIQUE: Transabdominal sonographic examination was performed for obstetrical and evaluation. FINDINGS: Number: 1 Heart Rate: 143.0 bpm H.B. /min Amniotic Fluid Volume: Subjectively normal Placental Location: ANTERIOR with lower margin 6.7 cm from os. Cervix Length: 5.4 cm, closed. ANATOMY: Normal Structures -cerebellum, choroid plexus, cisterna magna, lateral cerebral ventricles, orbits, midline falx, hard palate, four-chamber heart, stomach, kidneys, bladder, umbilical cord insertion into abdomen, three-vessel cord, cervical spine, thoracic spine, lumbar spine, sacral spine, right upper extremity, left upper extremity, right lower extremity, left lower extremity. SUBOPTIMALLY SEEN: Cardiac outflow tracts ABNORMALITIES: None BIOMETRY: BPD: 4.8 cm 20 weeks 4 days HC: 18.6 cm 20 weeks 6 days AC: 16.9 cm 22 weeks 0 days FL: 3.7 cm 21 weeks 5 days EFW:443.7 grams; 59% FL/AC: 21.8 FL/BPD: 76.7 HC/AC: 1.1 GESTATIONAL AGE: Age by EDC: 21 weeks 3 days ROSEMARIE by EDC: 06/04/2024 Age by current US: 21 weeks 2 days ROSEMARIE by current US: 06/05/2024 US/US OB cervical length IMPRESSION: 1. Single live intrauterine with growth detailed above. 2. Suboptimal visualization of the left and right ventricle outflow tracts due to position. Electronically authenticated by: EMERSON DOUGLASS Date: 01/26/2024 11:31
--- NOTE | 2024-01-26 10:00 | US_ITS ---
[address] [address] Patient Name: MELE DOLL MRN: [id number] date: 1995 Sex: F Assigned Patient Location: [facility] Current Patient Location: [facility] Accession/Order Number: [id number] Exam Date: 01/26/2024 10:01 Report Date: 01/26/2024 11:31 At the request of: ELLEN COLIN Procedure: US OB anatomy EXAMINATION: US OB anatomy, US OB cervical length HISTORY: ANATOMY COMPARISON: No relevant comparison available. TECHNIQUE: Transabdominal sonographic examination was performed for obstetrical and evaluation. FINDINGS: Number: 1 Heart Rate: 143.0 bpm H.B. /min Amniotic Fluid Volume: Subjectively normal Placental Location: ANTERIOR with lower margin 6.7 cm from os. Cervix Length: 5.4 cm, closed. ANATOMY: Normal Structures -cerebellum, choroid plexus, cisterna magna, lateral cerebral ventricles, orbits, midline falx, hard palate, four-chamber heart, stomach, kidneys, bladder, umbilical cord insertion into abdomen, three-vessel cord, cervical spine, thoracic spine, lumbar spine, sacral spine, right upper extremity, left upper extremity, right lower extremity, left lower extremity. SUBOPTIMALLY SEEN: Cardiac outflow tracts ABNORMALITIES: None BIOMETRY: BPD: 4.8 cm 20 weeks 4 days HC: 18.6 cm 20 weeks 6 days AC: 16.9 cm 22 weeks 0 days FL: 3.7 cm 21 weeks 5 days EFW:443.7 grams; 59% FL/AC: 21.8 FL/BPD: 76.7 HC/AC: 1.1 GESTATIONAL AGE: Age by EDC: 21 weeks 3 days ROSEMARIE by EDC: 06/04/2024 Age by current US: 21 weeks 2 days ROSEMARIE by current US: 06/05/2024 US/US OB anatomy IMPRESSION: 1. Single live intrauterine with growth detailed above. 2. Suboptimal visualization of the left and right ventricle outflow tracts due to position. Electronically authenticated by: EMERSON DOUGLASS Date: 01/26/2024 11:31
--- OUTSIDE RECORDS SUMMARY | 2024-01-26 10:02 | XMS_ITS ---
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 Name Role Phone No, Physician Primary Care Provider Unavailabl e NO, PHYSICIAN Primary Care Unavailable MARIELLA, MAGDI REYNOSO Consulting Unavai lable MARIELLA, MAGDI REYNOSO Attending Unavamehran SALAZAR, MAGDI REYNOSO Admitting Unavai lable TRAY, PHYSICIAN Primary Care Unavailable KELLY, KATE LUCERO Attending Unavailable KELLY, KATE LUCERO Admitting Unavailable REQUEST, DR FREEDMAN LISTED Primary Care Unavaila ble REINECK, DR STEW Haskins Admitting Unavailabl e REINECK, DR STEW Haskins Attending Unavailabl e GREHERB ., SERGIO VASQUEZ Consulting Unavailabl e STRAWSER, DEYVI Consulting Unavailable REQUEST, NONE LISTED Primary Care Unavaila ble CRISTI ., [...] ELLEN Attending Unavailable CRISTI, ELLEN Attending Unavailable CRISTI, ELLEN Attending Unavailable Encounters Encounter Date Encounter Type Care Provider Facility Start: 12-22-2023 End: 12-22-2023 ambulatory ELLEN CRISTI Not Available Start: 11-24-2023 End: 11-24-2023 ambulatory ELLEN CRISTI Not Available Start: 10-27-2023 End: 10-27-2023 ambulatory ELLEN CRISTI Not Available Start: 09-12-2023 End: 09-12-2023 ambulatory ELLEN CRISTI Not Available Start: 01-19-[address] FREEDMAN LISTED REQUEST Facility: Start: 01-14-2023 ambulatory NONE LISTED REQUEST Facility: Start: 01-10-2023 End: 01-11-2023 ambulatory NONE LISTED REQUEST Facility: Start: 01-04-2023 End: 01-04-[address] NONE LISTED REQUEST Facility: Start: 07-08-2020 End: 07-08-2020 Emergency department patient visit PHYSICIAN [facility] Start: 07-08-2020 End: 07-08-2020 Emergency department patient visit Kate Pop Work Phone: [facility] Comment on above: Abdominal pain, unsp ecified abdominal location (Primary Dx) Start: 06-22-2020 End: 06-23-2020 Patient encounter procedure PHYSICIAN [facility] Start: 06-22-2020 End: 06-23-2020 Emergency department patient visit Andrey Valdez Work Phone: [facility] Comment on above: Acute appendicitis w ith localized peritonitis, without perforation, abscess, or gangrene (Primary Dx) Medications Current Medications Medication Drug Class(es) Dates [...] chloride (PF) (NS) fl ush 5 mL Payers Date Payer Category Payer Unknown [employer] PPO [id number] 2019-Present [id number] 2019 Unknown [id number] 1995 Unknown [id number] 1995 Unknown [id number] 1994 Unknown [id number] 1994 Unknown [id number] 1994 Unknown [id number] 1994 Unknown [id number] 1994 Unknown [id number] 1994 Unknown [id number] 1994 Unknown [id number] 1994 Unknown [id number] 1959 Unknown [id number] Plan of Treatment Date Care Activity Detail Author Start: 04-22-2020 Influenza vaccination given Se quential Influenza Vaccine (#1) [facility] Start: 2012 Hepatitis C antibody , confirmatory test Hepatitis C Screening [facility] Start: 2009 HIV screening HIV Screening [facility] Start: 2006 Adolescent depressio n screening assessment Depression Screening (PHQ9) [facility] Start: 2005 Vaccination for tri n papillomavirus HPV Vaccines (1 - 2-dose series) [facility] Start: 1997 History and physical examination, annual for health maintenance Wellness Visit [facility] Start: 1994 Screening for malign ant neoplasm of cervix Pap Smear [facility] Start: 1994 Tetanus vaccination Tetanus: Every 1 0yrs [facility] Procedure on tissue specimen Tis kyara Exam Pathology and Cytology STAT Release Upon Ordering for 1 Occurrences starting 06/22/2020 [facility] Comment on above: Release Upon Orderin g for 1 Occurrences starting 06/22/2020 Problems Problem Classification Problem Date Documented Da [...] localized peritonitis, without perforation, abscess, or gangrene] Procedures Date Procedure Procedure Detail Performing Clinician Start: 07-08-2020 Ct abdomen & pelvis w/contrast material [employer] Work Phone: Start: 07-08-2020 Basic metabolic 2000 panel - Serum or Plasma [employer] Work Phone: Start: 07-08-2020 Choriogonadotropin ( test) [Presence] in Urine [employer] Work Phone: Start: 07-08-2020 Complete blood count with white cell differential, automated [employer] Work Phone: Start: 07-08-2020 Complete blood count with white cell differential, manual [employer] Work Phone: Start: 07-08-2020 Hepatic function 2000 panel - Serum or Plasma [employer] Work Phone: Start: 07-08-2020 LIGHT BLUE TOP [employer] Work Phone: Start: 07-08-2020 LIGHT GREEN TOP [employer] Work Phone: Start: 07-08-2020 Lipase [Enzymatic activity/volume] in Serum or Plasma Kate Pop Work Phone: Start: 07-08-2020 RAINBOW DRAW Kate Pop Work Phone: Start: 07-08-2020 Urinalysis Kate Pop Work Phone: Start: 06-23-2020 Complete blood count with white cell differential, automated Magdi Salazar Work Phone: Start: 06-23-2020 Complete blood count with white cell differential, manual Magdi Salazar Work Phone: Start: 06-22-2020 End: 06-22-2020 APPENDECTOMY LAPAROSCOPIC Magdi Sparrow Work Phone: Start: 06-22-2020 COVID-19, MOLECULAR [...] Start: 06-22-2020 Urinalysis Andrey Valdez Work Phone: Results Test Name Value Interpretation Reference Range Facility PREG QUANT HCGon 01-19-2023 HCG QUANT 67 mIU/mL Normal [facility] Comment on above: Performed By: #### P REGQNT #### [facility] [address] [place] [address] Dr. Tammi Fleming HCG RANGE SEE BELOW Normal [facility] Comment on above: Result Comment: 5-50 0.2-1 WEEK 50-500 1-2 WEEKS 100-5,000 2-3 WEEKS 500-10,000 3-4 WEEKS 1,000-50,000 4-5 WEEKS 10,000-100,000 5-6 WEEKS 15,000-200,000 6-8 WEEKS 10,000-100,000 2-3 MONTHS Performed By: #### P REGQNT #### [facility] [address] [place] [address] Dr. Tammi Fleming PREG QUANT HCGon 01-10-2023 HCG QUANT 231 mIU/mL Normal [facility] Comment on above: Performed By: #### P REGQNT #### [facility] [address] [place] [address] Dr. Tammi Fleming HCG RANGE SEE BELOW Normal [facility] Comment on above: Result Comment: 5-50 0.2-1 WEEK 50-500 1-2 WEEKS 100-5,000 2-3 WEEKS 500-10,000 3-4 WEEKS 1,000-50,000 4-5 WEEKS 10,000-100,000 5-6 WEEKS 15,000-200,000 6-8 WEEKS 10,000-100,000 2-3 MONTHS Performed By: #### P REGQNT #### [facility] [address] [place] [address] Dr. Tammi Fleming CBC AUTO DIFFon 01-04-2023 BASO # 0.0 103/ul Normal 0.0-0.1 [facility] Comment on above: Performed By: #### C BC #### [facility] [address] [place] [address] Dr. Tammi Fleming Basophils/100 WBC (Bld) 0.3 % Normal 0.2-2.0 [facility] Comment on above: Performed By: #### C BC #### [facility] [address] [place] [address] Dr. Tammi Fleming EO # 0.1 103/ul Normal 0.0-0.7 [facility] Comment on above: Performed By: #### C BC #### [facility] [address] [place] [address] Dr. Tammi Fleming Eosinophils/100 WBC (Bld) 0.8 % Critically low 0.9-7.0 [facility] Comment on above: Performed By: #### C BC #### [facility] [address] [place] [address] Dr. Tammi Fleming Erythrocyte distribution width (RBC) [Ratio] 12.0 % Normal 11.0-15.0 [facility] Comment on above: Performed By: #### C BC #### [facility] [address] [place] [address] Dr. Tammi Fleming Hematocrit (Bld) [Volume fraction] 42.6 % Normal 36.0-48.0 [facility] Comment on above: Performed By: #### C BC #### [facility] [address] [place] [address] Dr. Tammi Fleming Hemoglobin (Bld) [Mass/Vol] 14.5 g/dL Normal 12.0-16.0 [facility] Comment on above: Performed By: #### C BC #### [facility] [address] [place] [address] Dr. Tammi Fleming IG # 0.02 10e3/ul Normal 0.00-0.03 [facility] Comment on above: Performed By: #### C BC #### [facility] [address] [place] [address] Dr. Tammi Fleming IG % 0.3 % Normal 0.0-0.5 [facility] Comment on above: Performed By: #### C BC #### [facility] [address] [place] [address] Dr. Tammi Fleming LYMPH # 1.6 103/ul Normal 1.2-3.8 [facility] Comment on above: Performed By: #### C BC #### [facility] [address] [place] [address] Dr. Tammi Fleming Lymphocytes/100 WBC (Bld) 19.9 % Critically low 20.5-60.0 [facility] Comment on above: Performed By: #### C BC #### [facility] [address] [place] [address] Dr. Tammi Fleming MANUAL DIFF REQ NO Normal [facility] Comment on above: Performed By: #### C BC #### [facility] [address] [place] [address] Dr. Tammi Fleming MCH (RBC) [Entitic mass] 29.8 pg Normal 26.7-34.0 [facility] Comment on above: Performed By: #### C BC #### [facility] [address] [place] [address] Dr. Tammi Fleming MCHC (RBC) [Mass/Vol] 34.0 g/dL Normal 29.9-35.2 [facility] Comment on above: Performed By: #### C BC #### [facility] [address] [place] [address] Dr. Tammi Fleming MCV (RBC) [Entitic vol] 87.7 fL Normal 81.0-99.0 [facility] Comment on above: Performed By: #### C BC #### [facility] [address] [place] [address] Dr. Tammi Fleming MONO # 0.4 103/ul Normal 0.3-0.8 [facility] Comment on above: Performed By: #### C BC #### [facility] [address] [place] [address] Dr. Tammi Fleming Monocytes/100 WBC (Bld) 5.0 % Normal 1.7-12.0 [facility] Comment on above: Performed By: #### C BC #### [facility] [address] [place] [address] Dr. Tammi Fleming NEUT # 5.8 103/ul Normal 1.4-6.5 [facility] Comment on above: Performed By: #### C BC #### [facility] [address] [place] [address] Dr. Tammi Fleming Neutrophils/100 WBC (Bld) 73.7 % Normal 43.0-75.0 [facility] Comment on above: Performed By: #### C BC #### [facility] [address] [place] [address] Dr. Tammi Fleming Platelet mean volume (Bld) [Entitic vol] 12.1 fL Normal 9.5-13.5 [facility] Comment on above: Performed By: #### C BC #### [facility] [address] [place] [address] Dr. Tammi Fleming PLT 184 103/ul Normal 150-450 [facility] Comment on above: Performed By: #### C BC #### [facility] [address] [place] [address] Dr. Tammi Fleming RBC 4.86 106/ul Normal 4.20-5.40 [facility] Comment on above: Performed By: #### C BC #### [facility] [address] [place] [address] Dr. Tammi Fleming WBC 7.9 103/ul Normal 4.0-11.0 [facility] Comment on above: Performed By: #### C BC #### [facility] [address] [place] [address] Dr. Tammi Fleming ER URINE PROFILEon 3 Bilirubin Ql (U) Negative Normal NEGATIVE [facility] Comment on above: Performed By: #### NAGA SORTORO #### [facility] [address] [place] [address] Dr. Tammi Fleming Clarity (U) CLEAR Normal CLEAR [facility] Comment on above: Performed By: #### NAGA SORTORO #### [facility] [address] [place] [address] Dr. Tammi Fleming Color (U) LT. YELLOW Normal YELLOW [facility] Comment on above: Performed By: #### NAGA SORTORO #### [facility] [address] [place] [address] Dr. Tammi RAY A micrscopic examina tion will be performed if indicated. Normal [facility] Comment on above: Performed By: #### NAGA SORTORO #### [facility] [address] [place] [address] Dr. Tammi Fleming Glucose Ql (U) Negative Normal NEGATIVE [facility] Comment on above: Performed By: #### Angela CHRISTIE UMICRO #### [facility] [address] [address] [address] Tammi Fleming Hemoglobin Ql (U) LARGE Abnormal NEGATIVE [facility] Comment on above: Performed By: #### Angela CHRISTIE UMICRO #### [facility] [address] [address] [address] Tammi Fleming Ketones Ql (U) Negative Normal NEGATIVE [facility] Comment on above: Performed By: #### Angela CHRISTIE UMICRO #### [facility] [address] [place] [address] Dr. Tammi Fleming LEUKOCYTES Negative Normal NEGATIVE [facility] Comment on above: Performed By: #### Angela CHRISTIE UMICRO #### [facility] [address] [place] [address] Dr. Tammi Fleming Nitrite Ql (U) Negative Normal NEGATIVE [facility] Comment on above: Performed By: #### Angela CHRISTIE UMICRO #### [facility] [address] [place] [address] Dr. Tammi Fleming pH (U) 7.0 [pH] Normal 5-9 [facility] Comment on above: Performed By: #### Angela CHRISTIE UMICRO #### [facility] [address] [place] [address] Dr. Tammi Fleming SPEC GRAVITY <=1.005 Abnormal 1.005-<=1.025 [facility] Comment on above: Performed By: #### Angela CHRISTIE UMICRO #### [facility] [address] [place] [address] Dr. Tammi Fleming UA PROTEIN Negative Normal NEGATIVE/ TRACE [facility] Comment on above: Performed By: #### Angela CHRISTIE UMICRO #### [facility] [address] [place] [address] Dr. Tammi Fleming UR MICRO IND INDICATED Normal [facility] Comment on above: Performed By: #### Angela CHRISTIE UMICRO #### [facility] [address] [place] [address] Dr. Tammi Fleming Urobilinogen Qn (U) 0.2 {Elder'U}/dL Normal 0.2 - 1.0 [facility] Comment on above: Performed By: #### E SHAHNAZ UMICRO #### [facility] [address] [place] [address] Dr. Tammi Fleming PREG QUANT HCGon 01-04-2023 HCG QUANT 4523 mIU/mL Normal [facility] Comment on above: Performed By: #### P REGQNT #### [facility] [address] [place] [address] Dr. Tammi Fleming HCG RANGE SEE BELOW Normal [facility] Comment on above: Result Comment: 5-50 0.2-1 WEEK 50-500 1-2 WEEKS 100-5,000 2-3 WEEKS 500-10,000 3-4 WEEKS 1,000-50,000 4-5 WEEKS 10,000-100,000 5-6 WEEKS 15,000-200,000 6-8 WEEKS 10,000-100,000 2-3 MONTHS Performed By: #### P REGQNT #### [facility] [address] [place] [address] Dr. Tammi Fleming URINE MICROSCOPIC ONLYon BACTERIA TRACE Abnormal NONE SEEN [facility] Comment on above: Performed By: #### Angela CHRISTIE UMICRO #### [facility] [address] [place] [address] Dr. Tammi Fleming Bacteria identified Cx Nom (U) NOT INDICATED Normal [facility] Comment on above: Performed By: #### Angela CHRISTIE UMICRO #### [facility] [address] [place] [address] Dr. Tammi Fleming CAST NONE SEEN Normal NONE SEEN [facility] Comment on above: Performed By: #### E SHAHNAZ UMICRO #### [facility] [address] [place] [address] Dr. Tammi Fleming Crystals LM Nom (Urine sed) NONE SEEN Normal NONE SEEN [facility] Comment on above: Performed By: #### E SHAHNAZ UMICRO #### [facility] [address] [address] [address] Tammi Fleming Epithelial cells LM Ql (Urine sed) NONE SEEN Normal NONE SEEN /RARE [facility] Comment on above: Performed By: #### E RUR, UMICRO #### [facility] [address] [address] [address] Tammi Fleming MUCOUS NONE SEEN Normal NONE SEEN [facility] Comment on above: Performed By: #### E RUR, UMICRO #### [facility] [address] [address] [address] Tammi Fleming RBC 2-5 Abnormal 0-2 [facility] Comment on above: Performed By: #### E RUR, UMICRO #### [facility] [address] [address] [address] Tammi Fleming WBC NONE SEEN Normal NONE SEEN [facility] Comment on above: Performed By: #### E RUR, UMICRO #### [facility] [address] [address] [address] Tammi Fleming US PREG TVon 01-04-2023 [...] DEYVI FELDER Date: 2023-01-04 18:08 Normal [facility] BMPon 07-08-2020 Anion gap [Moles/Vol] 11 mmol/L 10 - 20 mmol/L [facility] Calcium [Mass/Vol] 9.5 mg/dL 8.4 - 10. 2 mg/dL [facility] Chloride [Moles/Vol] 109 mmol/L High 98 - 108 mmol/L [facility] Creatinine [Mass/Vol] 0.85 mg/dL 0.40 - 1.10 [facility] GFR/1.73 sq M predicted among non-blacks MDRD (S/P/Bld) [Vol rate/Area] The eGFR should be used for monitoring renal function only and not for medication dosing. [facility] GFR/1.73 sq M.predicted CKD-EPI (S/P/Bld) [Vol rate/Area] 96 >=60 mL/min/1.73 m2 [facility] Glucose [Mass/Vol] 95 mg/dL 65 - 99 mg/dL [facility] HCO3 [Moles/Vol] 23 mmol/L 21 - 32 mmol/L [facility] Potassium [Moles/Vol] 3.5 mmol/L 3.5 - 5.1 mmol/L [facility] Sodium [Moles/Vol] 139 mmol/L 135 - 145 mmol/L [facility] Urea nitrogen [Mass/Vol] 10 mg/dL 8 - 25 mg/dL [facility] Urea nitrogen/Creatinin e [Mass ratio] 11.8 mg/mg [facility] CBC WITH AUTO DIFFERENTIALon 07-08-2020 Basophils (Bld) [#/Vol] 0.02 10*3/uL [facility] Basophils/100 WBC (Bld) 0.2 % [facility] Eosinophils (Bld) [#/Vol] 0.04 10*3/uL [facility] Eosinophils/100 WBC (Bld) 0.5 % [facility] Erythrocyte distribution width (RBC) [Entitic vol] 12.0 % 11.6 - 14.8 % [facility] Hematocrit (Bld) [Volume fraction] 43.3 % 36 - 46 % [facility] Hemoglobin (Bld) [Mass/Vol] 14.7 g/dL 12 - 16 g/dL [facility] Immature granulocytes (Bld) [#/Vol] 0.00 10*3/uL [facility] Immature granulocytes/100 WBC (Bld) 0.00 % [facility] Comment on above: The IG parameter is the percentage of metamyelocytes, myelocytes and promyelocytes. An immature granulocyte count (IG) of 1% or more suggests the possibility of infection, an IG count of 3% is very likely related to an infection. Lymphocytes (Bld) [#/Vol] 2.44 10*3/uL [facility] Lymphocytes/100 WBC (Bld) 30.2 % [facility] MCH (RBC) [Entitic mass] 29.2 pg 26 - 34 pg [facility] MCHC (RBC) [Mass/Vol] 33.9 g/dL 31 - 37 g/dL [facility] MCV (RBC) [Entitic vol] 86.1 fL 80 - 100 fL [facility] Monocytes (Bld) [#/Vol] 0.40 10*3/uL [facility] Monocytes/100 WBC (Bld) 5.0 % [facility] Neutrophils (Bld) [#/Vol] 5.17 10*3/uL [facility] Neutrophils/100 WBC (Bld) 64.1 % [facility] Platelet mean volume (Bld) [Entitic vol] 11.8 fL 9.4 - 12.4 fL [facility] Platelets (Bld) [#/Vol] 228 10*3/uL [facility] RBC (Bld) [#/Vol] 5.03 10*6/uL [facility] WBC (Bld) [#/Vol] 8.07 10*3/uL [facility] e[facility] CT ABDOMEN PELVIS WITH IV CO NTRAST [...] TueJul 08, 2020 3:59:53 PM EST Normal [facility] Comment on above: Order Comment: Injur y/Trauma or Illness?:Illness/Other How long have you had these symptoms (acute/chronic)?:Acute Reason for exam?:abd pain: nausea Type of Exam?:Initial Additional signs and symptoms?:abd pain x [address] Abdomen Pelvis With IV Co ntrast Onlyon 07-08-2020 Interface, Rad In ji Speechq - 07/08/2020 4:02 PM EST [...] changes from recent appendectomy. Workstation ID: [id number] [facility] EXAMINATION: CT ABDO MEN PELVIS [...] No acute or aggressive osseous abnormality identified. [facility] 1. No acute infectio us, inflammatory or obstructive process identified in the abdomen or pelvis. 2. Postsurgical changes from recent appendectomy. Workstation ID: [id number] [facility] Hepatic Function Panel (LFT) on 07-08-2020 Albumin [Mass/Vol] 3.8 g/dL 3.2 - 5.2 g/dL [facility] ALP [Catalytic activity/Vol] 71 U/L 40 - 140 U/L [facility] ALT [Catalytic activity/Vol] 31 U/L 14 - 65 U/L [facility] AST [Catalytic activity/Vol] 18 U/L 0 - 45 U/L [facility] Bilirubin [Mass/Vol] 0.3 mg/dL 0 - 1.3 mg/dL [facility] Bilirubin.conjugat ed [Mass/Vol] mg/dL 0 - 0.4 mg/dL [facility] Protein [Mass/Vol] 7.9 g/dL 6 - 8 g/dL [facility] alth Lipaseon 07-08-2020 Lipase [Catalytic activity/Vol] 95 U/L 73 - 393 U/L [facility] Otheron 07-08-2020 Extra Tube Hold for add-ons. [facility] Comment on above: Auto resulted. Interpretation and review of laboratory results Normal [facility] Interpretation and review of laboratory results Abnormal [facility] URINALYSISon 07-08-2020 Bacteria Auto Ql (U) Rare Abnormal None Seen /hpf [facility] Bilirubin Ql (U) Negative Negative [facility] th Clarity Refractometry automated (U) Clear Clear [facility] Color (U) Yellow Colorless, Yellow [facility] Epithelial cells.squamous Auto (Urine sed) [#/Area] 1 [facility] Glucose Auto test strip (U) [Mass/Vol] Negative Negative mg/dL [facility] Hemoglobin Auto test strip Ql (U) Negative Negative [facility] Ketones (U) [Mass/Vol] Negative Negative mg/dL [facility] Leukocyte esterase Auto test strip Ql (U) Negative Negative [facility] Nitrite Auto test strip Ql (U) Negative Negative [facility] pH (U) 7.5 [pH] High [facility] Protein (U) [Mass/Vol] Negative Negative mg/dL [facility] Specific gravity (U) [Rel density] 1.020 [facility] Urobilinogen (U) [Mass/Vol] <2.0 <2.0 mg/dL [facility] Microscopic examinat ion is performed on all urinalysis samples and only positive findings are reported. The test for blood on the chemical analytic portion of urinalysis may also be positive due to hemoglobinuria and myoglobinuria and if red blood cells are present they are quantified by microscopic examination. [facility] Urine Pregnancyon 07-08-2020 HCG ( test) Ql (U) Negative Negative [facility] CBC WITH AUTO DIFFERENTIALon 06-23-2020 Basophils (Bld) [#/Vol] 0.00 10*3/uL [facility] Basophils/100 WBC (Bld) 0.0 % [facility] Eosinophils (Bld) [#/Vol] 0.00 10*3/uL [facility] [facility] Eosinophils/100 WBC (Bld) 0.0 % [facility] Erythrocyte distribution width (RBC) [Entitic vol] 12.2 % 11.6 - 14.8 % [facility] Hematocrit (Bld) [Volume fraction] 37.2 % 36 - 46 % [facility] Hemoglobin (Bld) [Mass/Vol] 12.6 g/dL 12 - 16 g/dL [facility] Immature granulocytes (Bld) [#/Vol] 0.01 10*3/uL [facility] Immature granulocytes/100 WBC (Bld) 0.10 % [facility] Comment on above: The IG parameter is the percentage of metamyelocytes, myelocytes and promyelocytes. An immature granulocyte count (IG) of 1% or more suggests the possibility of infection, an IG count of 3% is very likely related to an infection. Interpretation and review of laboratory results Abnormal [facility] Lymphocytes (Bld) [#/Vol] 0.82 10*3/uL Low [facility] Lymphocytes/100 WBC (Bld) 6.8 % [facility] MCH (RBC) [Entitic mass] 29.3 pg 26 - 34 pg [facility] MCHC (RBC) [Mass/Vol] 33.9 g/dL 31 - 37 g/dL [facility] MCV (RBC) [Entitic vol] 86.5 fL 80 - 100 fL [facility] Monocytes (Bld) [#/Vol] 0.31 10*3/uL [facility] Monocytes/100 WBC (Bld) 2.6 % [facility] Neutrophils (Bld) [#/Vol] 10.86 10*3/uL [facility] Neutrophils/100 WBC (Bld) 90.5 % [facility] Platelet mean volume (Bld) [Entitic vol] 12.1 fL 9.4 - 12.4 fL [facility] Platelets (Bld) [#/Vol] 197 10*3/uL [facility] RBC (Bld) [#/Vol] 4.30 10*6/uL [facility] WBC (Bld) [#/Vol] 12.00 10*3/uL [facility] CBC WITH AUTO DIFFERENTIALon 06-22-2020 Basophils (Bld) [#/Vol] 0.02 10*3/uL [facility] Basophils/100 WBC (Bld) 0.1 % [facility] Eosinophils (Bld) [#/Vol] 0.00 10*3/uL [facility] Eosinophils/100 WBC (Bld) 0.0 % [facility] Erythrocyte distribution width (RBC) [Entitic vol] 12.0 % 11.6 - 14.8 % [facility] Hematocrit (Bld) [Volume fraction] 40.2 % 36 - 46 % [facility] Hemoglobin (Bld) [Mass/Vol] 14.0 g/dL 12 - 16 g/dL [facility] Immature granulocytes (Bld) [#/Vol] 0.02 10*3/uL [facility] Immature granulocytes/100 WBC (Bld) 0.10 % [facility] Comment on above: The IG parameter is the percentage of metamyelocytes, myelocytes and promyelocytes. An immature granulocyte count (IG) of 1% or more suggests the possibility of infection, an IG count of 3% is very likely related to an infection. Lymphocytes (Bld) [#/Vol] 1.20 10*3/uL [facility] Lymphocytes/100 WBC (Bld) 5.9 % [facility] MCH (RBC) [Entitic mass] 29.4 pg 26 - 34 pg [facility] MCHC (RBC) [Mass/Vol] 34.8 g/dL 31 - 37 g/dL [facility] MCV (RBC) [Entitic vol] 84.5 fL 80 - 100 fL [facility] Monocytes (Bld) [#/Vol] 0.67 10*3/uL [facility] Monocytes/100 WBC (Bld) 3.3 % [facility] Neutrophils (Bld) [#/Vol] 18.51 10*3/uL [facility] Neutrophils/100 WBC (Bld) 90.6 % [facility] Platelet mean volume (Bld) [Entitic vol] 11.7 fL 9.4 - 12.4 fL [facility] Platelets (Bld) [#/Vol] 223 10*3/uL [facility] RBC (Bld) [#/Vol] 4.76 10*6/uL [facility] WBC (Bld) [#/Vol] 20.42 10*3/uL [facility] COVID-19, MOLECULARon 2019 SARS-COV-2 (BERG ID) Not Detected Normal Not Detected [facility] Comment on above: Result Comment: This test was performed under the FDA's Emergency Use Authorization (EUA). Testing was performed using the Food Reporter ID NOW COVID-19 assay on the [employer] platform. This test has not been approved for use in asymptomatic patients and its performance in this patient population has not been evaluated. Negative results do not rule out the presence of SARS-CoV-2/COVID-19. Fact sheets for the EUA can be found at the following links: For Healthcare Providers: https://www.fda.gov/media/797655/download For Patients: https://www.fda.gov/media/255769/download Performed By: #### L [id number] #### SH [address] [address] Kenneth Arrieta M.D. [id number] COVID-19, Molecularon 2019 Interpretation and review of laboratory results Normal [facility] SARS-CoV-2 Not Detected Not Detected [facility] Comment on above: This test was perfor med under the FDA's Emergency Use Authorization (EUA). Testing was performed using the Food Reporter ID NOW COVID-19 assay on the [employer] platform. This test has not been approved for use in asymptomatic patients and its performance in this patient population has not been evaluated. Negative results do not rule out the presence of SARS-CoV-2/COVID-19. Fact sheets for the EUA can be found at the following links: For Healthcare Providers: https://www.Enliken.gov/media/669947/download For Patients: https://www.Enliken.gov/media/409555/download CT ABDOMEN PELVIS WITH IV CO NTRAST [...] seen directed medially within the central anterior fcn-sn-vmmfv pelvis. No bowel obstruction. Some physiologic free [...] is directed medially within the central anterior pgy-qq-wnnbf pelvis with no bowel obstruction. 3. Some [...] TueJun 22, 2020 8:48:07 PM EST Normal [facility] Comment on above: Order Comment: Injur [...] seen directed medially within the central anterior uwy-ov-iaaar pelvis. No bowel obstruction. Some physiologic free [...] is directed medially within the central anterior low-ln-zldnd pelvis with no bowel obstruction. 3. Some physiologic free fluid in the cul-de-sac. Some small follicles seen in the ovaries bilaterally. Results were called by Dr. Clifford Wilson to Dr. ANDREY VALDEZ on 06/22/2020 at 16:43. [employer] Workstation ID: [id number] [facility] 1. Acute appendiciti s. The appendix is seen just anterior to the right common iliac artery and is distended approaching 9 mm with wall enhancement and surrounding fatty stranding. 2. Moderate amount of fecal matter in the proximal colon. The cecum is directed medially within the central anterior sgg-ct-ibfrf pelvis with no bowel obstruction. 3. Some physiologic free fluid in the cul-de-sac. Some small follicles seen in the ovaries bilaterally. Results were called by Dr. Clifford Wilson to Dr. ANDREY VALDEZ on 06/22/2020 at 16:43. [employer] Workstation ID: [id number] EXAMINATION: CT ABDO MEN PELVIS WITH IV [...] seen directed medially within the central anterior lef-uy-dfxxq pelvis. No bowel obstruction. Some physiologic free fluid in the cul-de-sac. Some follicles seen in the ovaries bilaterally. The uterus and urinary bladder unremarkable. No acute osseous abnormality. [facility] Comprehensive Metabolic Pane kendra 06-22-2020 Albumin [Mass/Vol] 4.0 g/dL 3.2 - 5.2 g/dL [facility] ALP [Catalytic activity/Vol] 63 U/L 40 - 140 U/L [facility] ALT [Catalytic activity/Vol] 27 U/L 14 - 65 U/L [facility] Anion gap [Moles/Vol] 10 mmol/L 10 - 20 mmol/L [facility] AST [Catalytic activity/Vol] 18 U/L 0 - 45 U/L [facility] Bilirubin [Mass/Vol] 0.5 mg/dL 0 - 1.3 mg/dL [facility] Calcium [Mass/Vol] 9.1 mg/dL 8.4 - 10. 2 mg/dL [facility] Chloride [Moles/Vol] 109 mmol/L High 98 - 108 mmol/L [facility] Creatinine [Mass/Vol] 0.83 mg/dL 0.40 - 1.10 [facility] GFR/1.73 sq M predicted among non-blacks MDRD (S/P/Bld) [Vol rate/Area] The eGFR should be used for monitoring renal function only and not for medication dosing. [facility] GFR/1.73 sq M.predicted CKD-EPI (S/P/Bld) [Vol rate/Area] 98 >=60 mL/min/1.73 m2 [facility] Glucose [Mass/Vol] 96 mg/dL 65 - 99 mg/dL [facility] HCO3 [Moles/Vol] 25 mmol/L 21 - 32 mmol/L [facility] Potassium [Moles/Vol] 3.7 mmol/L 3.5 - 5.1 mmol/L [facility] Protein [Mass/Vol] 7.8 g/dL 6 - 8 g/dL [facility] Sodium [Moles/Vol] 140 mmol/L 135 - 145 mmol/L [facility] Urea nitrogen [Mass/Vol] 10 mg/dL 8 - 25 mg/dL [facility] Urea nitrogen/Creatinin e [Mass ratio] 12.0 mg/mg [facility] ECG 12-LEADon 06-22-2020 Andrey Valdez MD 2019 4:57 PM ECG 12 Lead Date/Time: 06/22/2020 4:51 PM Performed by: Andrey Valdez MD Authorized by: Andrey Valdez MD Interpreted by ED attending physician Comparison: not compared with previous ECG Rhythm: sinus rhythm BPM: 85 WA Interval: 108 QRS Interval: 82 QT Interval: 426 Clinical impression: non-specific ECG [facility] Lipaseon 06-22-2020 Lipase [Catalytic activity/Vol] 72 U/L Low 73 - 393 U/L [facility] Otheron 06-22-2020 Interpretation and review of laboratory results Abnormal [facility] URINALYSISon 06-22-2020 Bacteria Auto Ql (U) Few Abnormal None Seen /hpf [facility] Bilirubin Ql (U) Negative Negative [facility] th Clarity Refractometry automated (U) Cloudy Abnormal Clear [facility] Color (U) Yellow Colorless, Yellow [facility] Epithelial cells.squamous Auto (Urine sed) [#/Area] 3 [facility] Glucose Auto test strip (U) [Mass/Vol] Negative Negative mg/dL [facility] Hemoglobin Auto test strip Ql (U) Negative Negative [facility] Interpretation and review of laboratory results Abnormal [facility] Ketones (U) [Mass/Vol] 20 Abnormal Negative mg/dL [facility] Leukocyte esterase Auto test strip Ql (U) Negative Negative [facility] Nitrite Auto test strip Ql (U) Negative Negative [facility] pH (U) 7.0 [pH] [facility] Protein (U) [Mass/Vol] Negative Negative mg/dL [facility] Specific gravity (U) [Rel density] 1.020 [facility] Urobilinogen (U) [Mass/Vol] <2.0 <2.0 mg/dL [facility] WBC Auto (Urine sed) [#/Area] 2 [facility] Microscopic examinat ion is performed on all urinalysis samples and only positive findings are reported. The test for blood on the chemical analytic portion of urinalysis may also be positive due to hemoglobinuria and myoglobinuria and if red blood cells are present they are quantified by microscopic examination. [facility] Urine Pregnancyon 06-22-2020 HCG ( test) Ql (U) Negative Negative [facility] Interpretation and review of laboratory results Normal [facility] Social History Date Type Detail Facility Start: 06-23-2020 End: 07-08-2020 Tobacco smoking status NHIS Never smoker [facility] Start: 06-23-2020 End: 07-08-2020 Tobacco use and exposure Never used [facility] Start: 06-23-2020 End: 07-08-2020 Alcohol intake Ex-drinker (finding) [facility] Sex Assigned At Not on file [facility] Exposure to SARS-CoV-2 (event) Not sure [facility] Vital Signs Date Time Vital Sign Value Performing Clinician Faci lity 07-08-2020 15:34-0500 BP Diastolic 79 mm[Hg] [facility] 07-08-2020 15:34-0500 BP Systolic 125 mm[Hg] [facility] 07-08-2020 15:34-0500 Pulse (Heart Rate) 81 /min [facility] 07-08-2020 15:34-0500 Pulse Oximetry 99 % [facility] 07-08-2020 15:34-0500 Respiratory Rate 16 /min [facility] 07-08-2020 13:50-0500 BMI (Body Mass Index) 20.36 kg/m2 [facility] 07-08-2020 13:50-0500 Body Temperature 98.49 [degF] [facility] 07-08-2020 13:50-0500 Body weight 58.97 kg [facility] 07-08-2020 13:50-0500 Height 170.2 cm [facility] 06-23-2020 07:35-0500 Body Temperature 98.01 [degF] [facility] 06-23-2020 07:35-0500 BP Diastolic 68 mm[Hg] [facility] 06-23-2020 07:35-0500 BP Systolic 106 mm[Hg] [facility] 06-23-2020 07:35-0500 Pulse (Heart Rate) 75 /min [facility] 06-23-2020 07:35-0500 Pulse Oximetry 94 % [facility] 06-23-2020 07:35-0500 Respiratory Rate 16 /min [facility] 06-22-2020 14:15-0500 BMI (Body Mass Index) 20.36 kg/m2 [facility] 06-22-2020 14:15-0500 Body weight 58.97 kg [facility] 06-22-2020 14:15-0500 Height 170.2 cm Andrey Valdez [facility] Discharge Instructions * Instructions* Magdi Salazar MD - 06/23/[address] Salazar (Hernia Repair/Gallbladder) [phone] No Lifting, no bending, no pushing May [...] A MEDICAL NATURE, CALL YOUR DOCTOR/EMERGENCY ROOM. [facility] EMERGENCY ROOM [phone] Make a follow-up appointment with your surgeon. Post Operative Instructions Dr Salazar (Hernia Repair/Gallbladder) [phone] No Lifting, no bending, no pushing May [...] A MEDICAL NATURE, CALL YOUR DOCTOR/EMERGENCY ROOM. [facility] EMERGENCY ROOM [phone] Make a follow-up appointment with your surgeon. documented in this encounter* Attachments The following attachments cannot be sent through Care Everywhere. * Abdominal Pain (Mozambican) documented in this encounter Assessments Diagnosis Acute appendicitis with localized peritonitis, without perforation, abscess, or gangrene- Primary Diagnosis Abdominal pain, unspecified abdominal location- Primary Advance Directives No Advanced Directives Records FoundDocuments on File Type Date Recorded Patient Construction Analyst Expl anation Advance Directives and Livin g Will 06/22/2020 1:08 PM Documents on File Type Date Recorded Patient Construction Analyst Expl anation Advance Directives and Livin g [...] ion and content) Patient's name Mele Thompson, [facility] #[id number] Age [age] years old date of 1995 [...] ED Notes (unrecognized secti on and content) [facility] ED Attending Note: NAME: Mele Thompson 24 y.o. 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 Patient is to be kept n.p.o. He would like 3.375 of Zosyn given to the patient. He would like the patient admitted to his service. Clinical Impression: 1. Acute appendicitis with localized peritonitis, without perforation, abscess, or gangrene Disposition: hospitalize to Operating Room Andrey Valdez M.D. Attending Physician [facility] Emergency Departments 06/22/2020 Portions of this [...] and stable at dc. ED PROVIDER NOTE [facility] EMERGENCY DEPARTMENT NAME: Mele Thompson AGE: 24 y.o. : 1995 VISIT DATE: 07/08/2020 CSN: [id number] PCP: Physician No Chief Complaint Patient presents [...] Colorless, Yellow Clarity, Urine Clear Clear Specific [place] 1.020 1.005 - 1.025 pH, Urine 7.5 [...] 1. Magdi Salazar MD. Specialty: General Surgery [address] [facility] [address] Contact information for after-discharge care Follow-up information [...] RN - 06/23/2020 9:18 AM ESTPlan of Rafa Arias RN - 06/23/2020 8:50 AM ESTPlan of Marylu Barriga RN - 06/23/2020 3:58 AM EST Miscellaneous [...] initiated. No change in drainage on op-sites. [facility]IL[facility] [id number] 1995 DATE 06/22/2020 OPERATIVE REPORT SURGEON MAGDI [...] called when every member of the operating constitution party was in and around the table. [...] utilizing 0 Ethibond with an open technique. Hmpikf-ll-jmyrn suture was placed after complete desufflation of [...] appendicitis. MAGDI SALAZAR MD D 06/22/2020 20:33 [id number] T 06/23/2020 01:38 VMT/MODL Umbilical dressing saturated with light pink serous drainage.Pubic dressing 1/2 saturated with shadow of pink drainage. Brief Post Operative Note Patient Name: Mele Thompson : 1995 (24 y.o.) Date of Service: 06/22/2020 CSN: [id number] Procedure(s): APPENDECTOMY LAPAROSCOPIC Pre-Operative Diagnoses: RIGHT SIDED ABDOMINAL PAIN - ACUTE APPENDICITIS Post-Operative Diagnoses: ACUTE RETROCECAL APPENDICITIS Surgeon(s) and Role: * Magdi Salazar MD - Primary Anesthesiologist: Jaylin Buckley MD Glass Etcher Helper: Tanisha Varghese RN Scrub Person Assist: Jadyn [...] previous ECG Rhythm: sinus rhythm BPM: 85 WA Interval: 108 QRS Interval: 82 QT Interval: 426 Clinical impression: non-specific ECG documented in this encounter INFORMATION SOURCE (unrecogn ized section and content) DATE CREATED AUTHOR 07/13/2020 [facility] DATE CREATED AUTHOR AUTHOR'S ORGANIZ ATION 01/28/2023 [facility] DATE CREATED AUTHOR AUTHOR'S ORGANIZ ATION 12/23/2023 [facility] EPIC FOR RECORDS PERTAINING TO PATIENTS WHO ARE [...] BE BASED ON THE PRIMARY CLINICAL RECORDS. [facility] [employer] [facility]. provides no warranty or guarantee of the accuracy or completeness of information in this document.
== END 2024-01-26 09:58 | disposition home or self-care (01) ==
LOC: NOMS 09:58
PROVIDERS: Visit Provider Obstetrics & Gynecology
DX: Z36.89 Encounter for other specified antenatal screening (principal); Z3A.21 21 weeks gestation of pregnancy
CPT/HCPCS: 76805; 76817

== ENCOUNTER 2024-02-29 09:00 | Outpatient (OUT) | payer BC, SELFPAY ==
--- NOTE | 2024-02-29 09:05 | US_ITS ---
[address] [address] Patient Name: MELE DOLL MRN: [id number] date: 1995 Sex: F Assigned Patient Location: US Current Patient Location: US Accession/Order Number: [id number] Exam Date: 02/29/2024 09:06 Report Date: 02/29/2024 10:31 At the request of: ELLEN COLIN Procedure: US OB incomplete anatomy EXAM: US OB incomplete anatomy HISTORY: 26 Weeks Of , Follow Up Anatomy COMPARISON: 01/26/2024. TECHNIQUE: Transabdominal FINDINGS: position: Cephalic presentation longitudinal lie Amniotic fluid volume: Subjectively normal Heart rate: 142 beats minute Normal observed anatomy: Four-chamber heart, RVOT, LVOT Clinical age: 26 weeks 2 days Clinical ROSEMARIE: 06/04/2024 US/US OB incomplete anatomy IMPRESSION: Normal four-chamber heart, RVOT, LVOT Electronically authenticated by: BRAD WILLETT Date: 02/29/2024 10:31
[2024-02-29 10:37] LABS: Basophils Percent Auto 0.2 % (0.2-2.0); Eosinophils Percent Auto 0.2 % (0.9-7.0); Hematocrit 39.5 % (36.0-48.0); Hemoglobin 13.1 g/dL (12.0-16.0); Immature Granulocytes Abs Auto 0.02 10^3/uL (0.00-0.03); Immature Granulocytes Pct Auto 0.2 % (0.0-0.5); Lymphocytes Absolute Auto 1.3 10^3/uL (1.2-3.8); Lymphocytes Percent Auto 15.8 % (20.5-60.0); Mean Corpuscular HGB Conc 33.2 g/dL (29.9-35.2); Mean Corpuscular Volume 90.4 fL (81.0-99.0); Mean Platelet Volume 12.7 fL (9.5-13.5); Monocytes Absolute Auto 0.3 10^3/uL (0.3-0.8); Monocytes Percent Auto 3.7 % (1.7-12.0); Neutrophils Absolute Auto 6.6 10^3/uL (1.4-6.5); Neutrophils Percent Auto 79.9 % (43.0-75.0); Platelet Count 144 10^3/uL (150-450); Red Blood Count 4.37 10^6/uL (4.20-5.40); Red Cell Distribution Width 12.4 % (11.0-15.0); White Blood Count 8.3 10^3/uL (4.0-11.0)
[2024-02-29 11:01] LABS: Glucose 1 Hour 143 mg/dL (<130)
== END 2024-02-29 09:01 | disposition home or self-care (01) ==
LOC: US 09:00
PROVIDERS: Visit Provider Obstetrics & Gynecology
DX: Z34.92 Encounter for supervision of normal pregnancy, unspecified, second trimester (principal); Z36.2 Encounter for other antenatal screening follow-up; Z3A.26 26 weeks gestation of pregnancy
CPT/HCPCS: 36415; 76815; 82950; 85025

== ENCOUNTER 2024-03-15 13:59 | Outpatient (OUT) | payer BC, SELFPAY ==
--- OUTSIDE RECORDS SUMMARY | 2024-03-15 14:06 | XMS_ITS ---
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 Name Role Phone No, Physician Primary Care Provider Unavailabl e NO, PHYSICIAN Primary Care Unavailable MARIELLA, MAGDI REYNOSO Consulting Jujuvamehran SALAZAR, MAGDI REYNOSO Attending Moon SALAZAR, MAGDI REYNOSO Admitting Unavai lable TRAY, PHYSICIAN Primary Care Unavailable KATE MENDOZA Attending Unavailable KELLY, KATE LUCERO Admitting Unavailable REQUEST, NONE LISTED Primary Care Unavaila ble REINECK, DR STEW Haskins Admitting Unavailabl e REINECK, DR STEW Haskins Attending Unavailabl e GRECHJS ., SERGIO VASQUEZ Consulting Unavailabl e STRAWSER, DEYVI Consulting Unavailable REQUEST, NONE LISTED Primary Care Unavaila ble CRISTI ., DR HUGHES Admitting Unavailable CRISTI ., DR HUGHES Consulting Unavailable CRISTI ., DR HUGHES Attending Unavailable REQUEST, NONE LISTED Primary Care Unavaila [...] ELLEN Attending Unavailable CRISTI, ELLEN Attending Unavailable DALY, CIERA Attending Unavailable Encounters Encounter Date Encounter Type Care Provider Facility Start: 03-12-2024 End: 03-12-2024 ambulatory CIERA KAUFFMAN Not Available Start: 02-27-2024 End: 02-27-2024 ambulatory ELLEN CRISTI Not Available Start: 01-26-2024 End: 01-26-2024 ambulatory ELLEN CRISTI Not Available Start: 12-22-2023 End: 12-22-2023 ambulatory ELLEN CRISTI Not Available Start: 11-24-2023 End: 11-24-2023 ambulatory ELLEN CRISTI Not Available Start: 10-27-2023 End: 10-27-2023 ambulatory ELLEN CRISTI Not Available Start: 09-12-2023 End: 09-12-2023 ambulatory ELLEN CRISTI Not Available Start: 01-19-[address] NONE LISTED REQUEST Facility: Start: 01-14-[address] NONE LISTED REQUEST Facility:[facility] Start: 01-10-2023 End: 01-11-[address] NONE LISTED REQUEST Facility: Start: 01-04-2023 End: 01-04-[address] NONE LISTED REQUEST Facility: Start: 07-08-2020 End: 07-08-2020 Emergency department patient visit PHYSICIAN [facility] Start: 07-08-2020 End: 07-08-2020 Emergency department patient visit Kate Isidrorad Mendoza Work Phone: [facility] Comment on above: Abdominal pain, unsp ecified abdominal location (Primary Dx) Start: 06-22-2020 End: 06-23-2020 Patient encounter procedure PHYSICIAN [facility] Start: 06-22-2020 End: 06-23-2020 Emergency department patient [...] 06-22-2020 End: 06-23-2020 sodium chloride (PF) (NS) [facility] 5 mL Payers Date Payer Category Payer Unknown [employer] PPO [id number] 2019-Present [id number] 2019 Unknown [id number] 1995 Unknown [id number] 1995 Unknown [id number] 1994 Unknown [id number] 1994 Unknown [id number] 1994 Unknown [id number] 1994 Unknown [id number] 1994 Unknown [id number] 1994 Unknown [id number] 1994 Unknown [id number] 1994 Unknown [id number] 1994 Unknown [id number] 1994 Unknown [id number] 1994 Unknown [id number] 1959 Unknown [id number] Plan of Treatment Date Care Activity Detail Author Start: 04-22-2020 Influenza vaccination given Se quential Influenza Vaccine (#1) [facility] Start: 2012 Hepatitis C antibody , confirmatory test Hepatitis C Screening [facility] Start: 2009 HIV screening HIV Screening [facility] Start: 2006 Adolescent depressio n screening assessment Depression Screening (PHQ9) [facility] Start: 2005 Vaccination for tri n papillomavirus HPV Vaccines (1 - 2-dose series) [facility] Start: 1997 History and physical examination, annual for health maintenance Wellness Visit [facility] Start: 1994 Screening for malign ant neoplasm of cervix Pap Smear [facility] Start: 1994 Tetanus vaccination Tetanus: Every 1 0yrs [facility] Procedure on tissue specimen Tis kyara Exam Pathology and Cytology STAT Release Upon Ordering for 1 Occurrences starting 06/22/2020 [facility] Comment on above: Release Upon Orderin g [...] HCGon 01-19-2023 HCG QUANT 67 mIU/mL Normal [facility] Comment on above: Performed By: #### P REGQNT #### [facility] [address] [place] [address] Dr. Tammi Fleming HCG RANGE SEE BELOW Normal [facility] Comment on above: Result Comment: 5-50 0.2-1 WEEK 50-500 1-2 WEEKS 100-5,000 2-3 WEEKS 500-10,000 3-4 WEEKS 1,000-50,000 4-5 WEEKS 10,000-100,000 5-6 WEEKS 15,000-200,000 6-8 WEEKS 10,000-100,000 2-3 MONTHS Performed By: #### P REGQNT #### [facility] [address] [place] [address] Dr. Tammi Fleming PREG QUANT HCGon 01-10-2023 HCG QUANT 231 mIU/mL Normal [facility] Comment on above: Performed By: #### P REGQNT #### [facility] [address] [place] [address] Dr. Tammi Fleming HCG RANGE SEE BELOW Normal [facility] Comment on above: Result Comment: 5-50 0.2-1 WEEK 50-500 1-2 WEEKS 100-5,000 2-3 WEEKS 500-10,000 3-4 WEEKS 1,000-50,000 4-5 WEEKS 10,000-100,000 5-6 WEEKS 15,000-200,000 6-8 WEEKS 10,000-100,000 2-3 MONTHS Performed By: #### P REGQNT #### [facility] [address] [address] [address] Tammi Fleming CBC AUTO DIFFon 01-04-2023 BASO # 0.0 103/ul Normal 0.0-0.1 [facility] Comment on above: Performed By: #### C BC #### [facility] [address] [address] [address] Tammi Fleming Basophils/100 WBC (Bld) 0.3 % Normal 0.2-2.0 [facility] Comment on above: Performed By: #### C BC #### [facility] [address] [place] [address] Dr. Tammi Fleming EO # 0.1 103/ul Normal 0.0-0.7 [facility] Comment on above: Performed By: #### C BC #### [facility] [address] [place] [address] Dr. Tammi Fleming Eosinophils/100 WBC (Bld) 0.8 % Critically low 0.9-7.0 [facility] Comment on above: Performed By: #### C BC #### [facility] [address] [place] [address] Dr. Tammi Fleming Erythrocyte distribution width (RBC) [Ratio] 12.0 % Normal 11.0-15.0 [facility] Comment on above: Performed By: #### C BC #### [facility] [address] [place] [address] Dr. Tammi Fleming Hematocrit (Bld) [Volume fraction] 42.6 % Normal 36.0-48.0 [facility] Comment on above: Performed By: #### C BC #### [facility] [address] [place] [address] Dr. Tammi Fleming Hemoglobin (Bld) [Mass/Vol] 14.5 g/dL Normal 12.0-16.0 [facility] Comment on above: Performed By: #### C BC #### [facility] [address] [place] [address] Dr. Tammi Fleming IG # 0.02 10e3/ul Normal 0.00-0.03 [facility] Comment on above: Performed By: #### C BC #### [facility] [address] [place] [address] Dr. Tammi Fleming IG % 0.3 % Normal 0.0-0.5 [facility] Comment on above: Performed By: #### C BC #### [facility] [address] [place] [address] Dr. Tammi Fleming LYMPH # 1.6 103/ul Normal 1.2-3.8 [facility] Comment on above: Performed By: #### C BC #### [facility] [address] [place] [address] Dr. Tammi Fleming Lymphocytes/100 WBC (Bld) 19.9 % Critically low 20.5-60.0 [facility] Comment on above: Performed By: #### C BC #### [facility] [address] [place] [address] Dr. Tammi Fleming MANUAL DIFF REQ NO Normal [facility] Comment on above: Performed By: #### C BC #### [facility] [address] [place] [address] Dr. Tammi Fleming MCH (RBC) [Entitic mass] 29.8 pg Normal 26.7-34.0 [facility] Comment on above: Performed By: #### C BC #### [facility] [address] [place] [address] Dr. Tammi Fleming MCHC (RBC) [Mass/Vol] 34.0 g/dL Normal 29.9-35.2 [facility] Comment on above: Performed By: #### C BC #### [facility] [address] [place] [address] Dr. Tammi Fleming MCV (RBC) [Entitic vol] 87.7 fL Normal 81.0-99.0 [facility] Comment on above: Performed By: #### C BC #### [facility] [address] [place] [address] Dr. Tammi Fleming MONO # 0.4 103/ul Normal 0.3-0.8 [facility] Comment on above: Performed By: #### C BC #### [facility] [address] [place] [address] Dr. Tammi Fleming Monocytes/100 WBC (Bld) 5.0 % Normal 1.7-12.0 [facility] Comment on above: Performed By: #### C BC #### [facility] [address] [place] [address] Dr. Tammi Fleming NEUT # 5.8 103/ul Normal 1.4-6.5 [facility] Comment on above: Performed By: #### C BC #### [facility] [address] [place] [address] Dr. Tammi Fleming Neutrophils/100 WBC (Bld) 73.7 % Normal 43.0-75.0 [facility] Comment on above: Performed By: #### C BC #### [facility] [address] [place] [address] Dr. Tammi Fleming Platelet mean volume (Bld) [Entitic vol] 12.1 fL Normal 9.5-13.5 [facility] Comment on above: Performed By: #### C BC #### [facility] [address] [place] [address] Dr. Tammi Fleming PLT 184 103/ul Normal 150-450 [facility] Comment on above: Performed By: #### C BC #### [facility] [address] [place] [address] Dr. Tammi Fleming RBC 4.86 106/ul Normal 4.20-5.40 [facility] Comment on above: Performed By: #### C BC #### [facility] [address] [place] [address] Dr. Tammi Fleming WBC 7.9 103/ul Normal 4.0-11.0 [facility] Comment on above: Performed By: #### C BC #### [facility] [address] [place] [address] Dr. Tammi Fleming ER URINE PROFILEon 3 Bilirubin Ql (U) Negative Normal NEGATIVE [facility] Comment on above: Performed By: #### E CIRILO CHRISTIE #### [facility] [address] [place] [address] Dr. Tammi Fleming Clarity (U) CLEAR Normal CLEAR [facility] Comment on above: Performed By: #### NAGA SORTORO #### [facility] [address] [place] [address] Dr. Tammi Fleming Color (U) LT. YELLOW Normal YELLOW [facility] Comment on above: Performed By: #### NAGA SORTORO #### [facility] [address] [place] [address] Dr. Tammi RAY A micrscopic examina tion will be performed if indicated. Normal [facility] Comment on above: Performed By: #### NAGA SORTORO #### [facility] [address] [place] [address] Dr. Tammi Fleming Glucose Ql (U) Negative Normal NEGATIVE [facility] Comment on above: Performed By: #### NAGA SORTORO #### [facility] [address] [place] [address] Dr. Tammi Fleming Hemoglobin Ql (U) LARGE Abnormal NEGATIVE [facility] Comment on above: Performed By: #### NAGA SORTORO #### [facility] [address] [place] [address] Dr. Tammi Fleming Ketones Ql (U) Negative Normal NEGATIVE [facility] Comment on above: Performed By: #### NAGA SOROTRO #### [facility] [address] [place] [address] Dr. Tammi Fleming LEUKOCYTES Negative Normal NEGATIVE [facility] Comment on above: Performed By: #### ERVIN SORTOICRO #### [facility] [address] [place] [address] Dr. Tamim Fleming Nitrite Ql (U) Negative Normal NEGATIVE [facility] Comment on above: Performed By: #### Angela CHRISTIE UMICRO #### [facility] [address] [place] [address] Dr. Tammi Fleming pH (U) 7.0 [pH] Normal 5-9 [facility] Comment on above: Performed By: #### E RUR, UMICRO #### [facility] [address] [address] [address] Tammi Fleming SPEC GRAVITY <=1.005 Abnormal 1.005-<=1.[address] [facility] Comment on above: Performed By: #### E RUR, UMICRO #### [facility] [address] [place] [address] Dr. Tammi Fleming UA PROTEIN Negative Normal NEGATIVE/ TRACE [facility] Comment on above: Performed By: #### E RUR, UMICRO #### [facility] [address] [place] [address] Dr. Tammi Fleming UR MICRO IND INDICATED Normal [facility] Comment on above: Performed By: #### E SHAHNAZ, UMICRO #### [facility] [address] [place] [address] Dr. Tammi Fleming Urobilinogen Qn (U) 0.2 {Elder'U}/dL Normal 0.2 - 1.0 [facility] Comment on above: Performed By: #### E SHAHNAZ, UMICRO #### [facility] [address] [place] [address] Dr. Tammi Fleming PREG QUANT HCGon 01-04-2023 HCG QUANT 4523 mIU/mL Normal [facility] Comment on above: Performed By: #### P REGQNT #### [facility] [address] [place] [address] Dr. Tammi Fleming HCG RANGE SEE BELOW Normal [facility] Comment on above: Result Comment: 5-50 0.2-1 WEEK 50-500 1-2 WEEKS 100-5,000 2-3 WEEKS 500-10,000 3-4 WEEKS 1,000-50,000 4-5 WEEKS 10,000-100,000 5-6 WEEKS 15,000-200,000 6-8 WEEKS 10,000-100,000 2-3 MONTHS Performed By: #### P REGQNT #### [facility] [address] [place] [address] Dr. Tammi Fleming URINE MICROSCOPIC ONLYon BACTERIA TRACE Abnormal NONE SEEN [facility] Comment on above: Performed By: #### E RUR, UMICRO #### [facility] [address] [place] [address] Dr. Tammi Fleming Bacteria identified Cx Nom (U) NOT INDICATED Normal [facility] Comment on above: Performed By: #### E RUR, UMICRO #### [facility] [address] [place] [address] Dr. Tammi Fleming CAST NONE SEEN Normal NONE SEEN [facility] Comment on above: Performed By: #### E RUR, UMICRO #### [facility] [address] [place] [address] Dr. Tammi Fleming Crystals LM Nom (Urine sed) NONE SEEN Normal NONE SEEN [facility] Comment on above: Performed By: #### E RUR, UMICRO #### [facility] [address] [place] [address] Dr. Tammi Fleming Epithelial cells LM Ql (Urine sed) NONE SEEN Normal NONE SEEN /RARE [facility] Comment on above: Performed By: #### E RUR, UMICRO #### [facility] [address] [place] [address] Dr. Tammi Fleming MUCOUS NONE SEEN Normal NONE SEEN [facility] Comment on above: Performed By: #### Angela CHRISTIE, UMICRO #### [facility] [address] [place] [address] Dr. Tammi Fleming RBC 2-5 Abnormal 0-2 [facility] Comment on above: Performed By: #### Angela CHRISTIE UMICRO #### [facility] [address] [place] [address] Dr. Tammi Fleming WBC NONE SEEN Normal NONE SEEN [facility] Comment on above: Performed By: #### Angela CHRISTIE UMICRO #### [facility] [address] [place] [address] Dr. Tammi Fleming US PREG TVon 01-04-2023 [...] by: DEYVI FELDER Date: 2023-01-04 18:08 Normal [facility] BMPon 07-08-2020 Anion gap [Moles/Vol] 11 mmol/L 10 - 20 mmol/L [facility] Calcium [Mass/Vol] 9.5 mg/dL 8.4 - 10. 2 mg/dL [facility] Chloride [Moles/Vol] 109 mmol/L High 98 - 108 mmol/L [facility] Creatinine [Mass/Vol] 0.85 mg/dL 0.40 - 1.10 [facility] GFR/1.73 sq M predicted among non-blacks MDRD (S/P/Bld) [Vol rate/Area] The eGFR should be used for monitoring renal function only and not for medication dosing. [facility] GFR/1.73 sq M.predicted CKD-EPI (S/P/Bld) [Vol rate/Area] 96 >=60 mL/min/1.73 m2 [facility] Glucose [Mass/Vol] 95 mg/dL 65 - 99 mg/dL [facility] HCO3 [Moles/Vol] 23 mmol/L 21 - 32 mmol/L [facility] Potassium [Moles/Vol] 3.5 mmol/L 3.5 - 5.1 mmol/L [facility] Sodium [Moles/Vol] 139 mmol/L 135 - 145 mmol/L [facility] Urea nitrogen [Mass/Vol] 10 mg/dL 8 - 25 mg/dL [facility] Urea nitrogen/Creatinin e [Mass ratio] 11.8 mg/mg [facility] CBC WITH AUTO DIFFERENTIALon 07-08-2020 Basophils (Bld) [#/Vol] 0.02 10*3/uL [facility] Basophils/100 WBC (Bld) 0.2 % [facility] Eosinophils (Bld) [#/Vol] 0.04 10*3/uL [facility] Eosinophils/100 WBC (Bld) 0.5 % [facility] Erythrocyte distribution width (RBC) [Entitic vol] 12.0 % 11.6 - 14.8 % [facility] Hematocrit (Bld) [Volume fraction] 43.3 % 36 - 46 % [facility] Hemoglobin (Bld) [Mass/Vol] 14.7 g/dL 12 - 16 g/dL [facility] Immature granulocytes (Bld) [#/Vol] 0.00 10*3/uL [facility] Immature granulocytes/100 WBC (Bld) 0.00 % [facility] Comment on above: The IG parameter is the percentage of metamyelocytes, myelocytes and promyelocytes. An immature granulocyte count (IG) of 1% or more suggests the possibility of infection, an IG count of 3% is very likely related to an infection. Lymphocytes (Bld) [#/Vol] 2.44 10*3/uL [facility] Lymphocytes/100 WBC (Bld) 30.2 % [facility] MCH (RBC) [Entitic mass] 29.2 pg 26 - 34 pg [facility] MCHC (RBC) [Mass/Vol] 33.9 g/dL 31 - 37 g/dL [facility] MCV (RBC) [Entitic vol] 86.1 fL 80 - 100 fL [facility] Monocytes (Bld) [#/Vol] 0.40 10*3/uL [facility] Monocytes/100 WBC (Bld) 5.0 % [facility] Neutrophils (Bld) [#/Vol] 5.17 10*3/uL [facility] Neutrophils/100 WBC (Bld) 64.1 % [facility] Platelet mean volume (Bld) [Entitic vol] 11.8 fL 9.4 - 12.4 fL [facility] Platelets (Bld) [#/Vol] 228 10*3/uL [facility] RBC (Bld) [#/Vol] 5.03 10*6/uL [facility] WBC (Bld) [#/Vol] 8.07 10*3/uL [facility] CT ABDOMEN PELVIS WITH IV CO [...] changes from recent appendectomy. Workstation ID: [id number] [facility] EXAMINATION: CT ABDO MEN PELVIS WITH IV [...] No acute or aggressive osseous abnormality identified. [facility] 1. No acute infectio us, inflammatory or obstructive process identified in the abdomen or pelvis. 2. Postsurgical changes from recent appendectomy. Workstation ID: [id number] [facility] Hepatic Function Panel (LFT) on 07-08-2020 Albumin [Mass/Vol] 3.8 g/dL 3.2 - 5.2 g/dL [facility] ALP [Catalytic activity/Vol] 71 U/L 40 - 140 U/L [facility] ALT [Catalytic activity/Vol] 31 U/L 14 - 65 U/L [facility] AST [Catalytic activity/Vol] 18 U/L 0 - 45 U/L [facility] Bilirubin [Mass/Vol] 0.3 mg/dL 0 - 1.3 mg/dL [facility] Bilirubin.conjugat ed [Mass/Vol] mg/dL 0 - 0.4 mg/dL [facility] Protein [Mass/Vol] 7.9 g/dL 6 - 8 g/dL [facility] Lipaseon 07-08-2020 Lipase [Catalytic activity/Vol] 95 U/L 73 - 393 U/L [facility] Otheron 07-08-2020 Extra Tube Hold for add-ons. [facility] Comment on above: Auto resulted. Interpretation and review of laboratory results Normal [facility] Interpretation and review of laboratory results Abnormal [facility] URINALYSISon 07-08-2020 Bacteria Auto Ql (U) Rare Abnormal None Seen /hpf [facility] Bilirubin Ql (U) Negative Negative [facility] th Clarity Refractometry automated (U) Clear Clear [facility] Color (U) Yellow Colorless, Yellow [facility] Epithelial cells.squamous Auto (Urine sed) [#/Area] 1 [facility] Glucose Auto test strip (U) [Mass/Vol] Negative Negative mg/dL [facility] Hemoglobin Auto test strip Ql (U) Negative Negative [facility] Ketones (U) [Mass/Vol] Negative Negative mg/dL [facility] Leukocyte esterase Auto test strip Ql (U) Negative Negative [facility] Nitrite Auto test strip Ql (U) Negative Negative [facility] pH (U) 7.5 [pH] High [facility] Protein (U) [Mass/Vol] Negative Negative mg/dL [facility] Specific gravity (U) [Rel density] 1.020 [facility] Urobilinogen (U) [Mass/Vol] <2.0 <2.0 mg/dL [facility] Microscopic examinat ion is performed on all urinalysis samples and only positive findings are reported. The test for blood on the chemical analytic portion of urinalysis may also be positive due to hemoglobinuria and myoglobinuria and if red blood cells are present they are quantified by microscopic examination. [facility] Urine Pregnancyon 07-08-2020 HCG ( test) Ql (U) Negative Negative [facility] CBC WITH AUTO DIFFERENTIALon 06-23-2020 Basophils (Bld) [#/Vol] 0.00 10*3/uL [facility] Basophils/100 WBC (Bld) 0.0 % [facility] Eosinophils (Bld) [#/Vol] 0.00 10*3/uL [facility] Eosinophils/100 WBC (Bld) 0.0 % [facility] Erythrocyte distribution width (RBC) [Entitic vol] 12.2 % 11.6 - 14.8 % [facility] Hematocrit (Bld) [Volume fraction] 37.2 % 36 - 46 % [facility] Hemoglobin (Bld) [Mass/Vol] 12.6 g/dL 12 - 16 g/dL [facility] Immature granulocytes (Bld) [#/Vol] 0.01 10*3/uL [facility] Immature granulocytes/100 WBC (Bld) 0.10 % [facility] Comment on above: The IG parameter is the percentage of metamyelocytes, myelocytes and promyelocytes. An immature granulocyte count (IG) of 1% or more suggests the possibility of infection, an IG count of 3% is very likely related to an infection. Interpretation and review of laboratory results Abnormal [facility] Lymphocytes (Bld) [#/Vol] 0.82 10*3/uL Low [facility] Lymphocytes/100 WBC (Bld) 6.8 % [facility] MCH (RBC) [Entitic mass] 29.3 pg 26 - 34 pg [facility] MCHC (RBC) [Mass/Vol] 33.9 g/dL 31 - 37 g/dL [facility] MCV (RBC) [Entitic vol] 86.5 fL 80 - 100 fL [facility] Monocytes (Bld) [#/Vol] 0.31 10*3/uL [facility] Monocytes/100 WBC (Bld) 2.6 % [facility] Neutrophils (Bld) [#/Vol] 10.86 10*3/uL High [facility] Neutrophils/100 WBC (Bld) 90.5 % [facility] Platelet mean volume (Bld) [Entitic vol] 12.1 fL 9.4 - 12.4 fL [facility] Platelets (Bld) [#/Vol] 197 10*3/uL [facility] RBC (Bld) [#/Vol] 4.30 10*6/uL [facility] ealth WBC (Bld) [#/Vol] 12.00 10*3/uL [facility] [place] CBC WITH AUTO DIFFERENTIALon 06-22-2020 Basophils (Bld) [#/Vol] 0.02 10*3/uL [facility] Basophils/100 WBC (Bld) 0.1 % [facility] Eosinophils (Bld) [#/Vol] 0.00 10*3/uL [facility] Eosinophils/100 WBC (Bld) 0.0 % [facility] Erythrocyte distribution width (RBC) [Entitic vol] 12.0 % 11.6 - 14.8 % [facility] Hematocrit (Bld) [Volume fraction] 40.2 % 36 - 46 % [facility] Hemoglobin (Bld) [Mass/Vol] 14.0 g/dL 12 - 16 g/dL [facility] Immature granulocytes (Bld) [#/Vol] 0.02 10*3/uL [facility] Immature granulocytes/100 WBC (Bld) 0.10 % [facility] Comment on above: The IG parameter is the percentage of metamyelocytes, myelocytes and promyelocytes. An immature granulocyte count (IG) of 1% or more suggests the possibility of infection, an IG count of 3% is very likely related to an infection. Lymphocytes (Bld) [#/Vol] 1.20 10*3/uL [facility] Lymphocytes/100 WBC (Bld) 5.9 % [facility] MCH (RBC) [Entitic mass] 29.4 pg 26 - 34 pg [facility] MCHC (RBC) [Mass/Vol] 34.8 g/dL 31 - 37 g/dL [facility] MCV (RBC) [Entitic vol] 84.5 fL 80 - 100 fL [facility] Monocytes (Bld) [#/Vol] 0.67 10*3/uL [facility] Monocytes/100 WBC (Bld) 3.3 % [facility] Neutrophils (Bld) [#/Vol] 18.51 10*3/uL [facility] Neutrophils/100 WBC (Bld) 90.6 % [facility] Platelet mean volume (Bld) [Entitic vol] 11.7 fL 9.4 - 12.4 fL [facility] Platelets (Bld) [#/Vol] 223 10*3/uL [facility] RBC (Bld) [#/Vol] 4.76 10*6/uL [facility] ealth WBC (Bld) [#/Vol] 20.42 10*3/uL [facility] [place] COVID-19, MOLECULARon 2019 SARS-COV-2 (BERG ID) Not [...] at the following links: For Healthcare Providers: https://www.fda.gov/media/226207/download For Patients: https://www.fda.gov/media/244771/download Performed By: #### L [id number] #### SH [address] [address] Kenneth Arrieta M.D. [id number] COVID-19, Molecularon 2019 Interpretation and review of laboratory results Normal [facility] SARS-CoV-2 Not Detected Not Detected [facility] Comment on above: This test was perfor med under the FDA's Emergency Use Authorization (EUA). Testing was performed using the [employer] ID NOW COVID-19 assay on the ID NOW platform. This test has not been approved for use in asymptomatic patients and its performance in this patient population has not been evaluated. Negative results do not rule out the presence of SARS-CoV-2/COVID-19. Fact sheets for the EUA can be found at the following links: For Healthcare Providers: https://www.[employer].gov/media/628203/download For Patients: https://www.[employer].gov/[employer]/337994/download CT ABDOMEN PELVIS WITH IV CO NTRAST [...] seen directed medially within the central anterior vjo-ll-tgqky pelvis. No bowel obstruction. Some physiologic free [...] is directed medially within the central anterior jnt-gp-shbws pelvis with no bowel obstruction. 3. Some physiologic free fluid in the cul-de-sac. Some small follicles seen in the ovaries bilaterally. Results were called by Dr. Clifford Wilson to Dr. ANDREY VALDEZ on 06/22/2020 at 16:43. GJT/dnsamm Workstation ID: [id number] Dictated by: CHAD WILSON [...] Co ntrast Onlyon 06-22-2020 Interface, Rad In [facility] - 06/22/2020 8:50 PM EST EXAMINATION: CT [...] seen directed medially within the central anterior gml-iw-zznlg pelvis. No bowel obstruction. Some physiologic free [...] is directed medially within the central anterior nsv-cd-qidpn pelvis with no bowel obstruction. 3. Some physiologic free fluid in the cul-de-sac. Some small follicles seen in the ovaries bilaterally. Results were called by Dr. Clifford Wilson to Dr. ANDREY VALDEZ on 06/22/2020 at 16:43. Pix[employer] Workstation ID: [id number] [facility] 1. Acute appendiciti s. The appendix is seen just anterior to the right common iliac artery and is distended approaching 9 mm with wall enhancement and surrounding fatty stranding. 2. Moderate amount of fecal matter in the proximal colon. The cecum is directed medially within the central anterior bbr-xv-wgvds pelvis with no bowel obstruction. 3. Some physiologic free fluid in the cul-de-sac. Some small follicles seen in the ovaries bilaterally. Results were called by Dr. Clifford Wilson to Dr. ANDREY VALDEZ on 06/22/2020 at 16:43. [employer] Workstation ID: [id number] EXAMINATION: CT ABDO MEN PELVIS WITH [...] seen directed medially within the central anterior wkr-xk-vywpi pelvis. No bowel obstruction. Some physiologic free fluid in the cul-de-sac. Some follicles seen in the ovaries bilaterally. The uterus and urinary bladder unremarkable. No acute osseous abnormality. [facility] Comprehensive Metabolic Pane kendra 06-22-2020 Albumin [Mass/Vol] 4.0 g/dL 3.2 - 5.2 g/dL [facility] ALP [Catalytic activity/Vol] 63 U/L 40 - 140 U/L [facility] ALT [Catalytic activity/Vol] 27 U/L 14 - 65 U/L [facility] Anion gap [Moles/Vol] 10 mmol/L 10 - 20 mmol/L [facility] AST [Catalytic activity/Vol] 18 U/L 0 - 45 U/L [facility] Bilirubin [Mass/Vol] 0.5 mg/dL 0 - 1.3 mg/dL [facility] Calcium [Mass/Vol] 9.1 mg/dL 8.4 - 10. 2 mg/dL [facility] Chloride [Moles/Vol] 109 mmol/L High 98 - 108 mmol/L [facility] Creatinine [Mass/Vol] 0.83 mg/dL 0.40 - 1.10 [facility] GFR/1.73 sq M predicted among non-blacks MDRD (S/P/Bld) [Vol rate/Area] The eGFR should be used for monitoring renal function only and not for medication dosing. [facility] GFR/1.73 sq M.predicted CKD-EPI (S/P/Bld) [Vol rate/Area] 98 >=60 mL/min/1.73 m2 [facility] Glucose [Mass/Vol] 96 mg/dL 65 - 99 mg/dL [facility]3 [Moles/Vol] 25 mmol/L 21 - 32 mmol/L [facility] Potassium [Moles/Vol] 3.7 mmol/L 3.5 - 5.1 mmol/L [facility] Protein [Mass/Vol] 7.8 g/dL 6 - 8 g/dL [facility] alth Sodium [Moles/Vol] 140 mmol/L 135 - 145 mmol/L [facility] Urea nitrogen [Mass/Vol] 10 mg/dL 8 - 25 mg/dL [facility] Urea nitrogen/Creatinin e [Mass ratio] 12.0 mg/mg [facility] ECG 12-LEADon 06-22-2020 Andrey Valdez MD 2019 4:57 PM ECG 12 Lead Date/Time: 06/22/2020 4:51 PM Performed by: Andrey Valdez MD Authorized by: Andrey Valdez MD Interpreted by ED attending physician Comparison: not compared with previous ECG Rhythm: sinus rhythm BPM: 85 NJ Interval: 108 QRS Interval: 82 QT Interval: 426 Clinical impression: non-specific ECG [facility] Lipaseon 06-22-2020 Lipase [Catalytic activity/Vol] 72 U/L Low 73 - 393 U/L [facility] Otheron 06-22-2020 Interpretation and review of laboratory results Abnormal [facility] URINALYSISon 06-22-2020 Bacteria Auto Ql (U) Few Abnormal None Seen /hpf [facility] Bilirubin Ql (U) Negative Negative [facility] th Clarity Refractometry automated (U) Cloudy Abnormal Clear [facility] Color (U) Yellow Colorless, Yellow [facility] Epithelial cells.squamous Auto (Urine sed) [#/Area] 3 [facility] Glucose Auto test strip (U) [Mass/Vol] Negative Negative mg/dL [facility] Hemoglobin Auto test strip Ql (U) Negative Negative [facility] Interpretation and review of laboratory results Abnormal [facility] Ketones (U) [Mass/Vol] 20 Abnormal Negative mg/dL [facility] Leukocyte esterase Auto test strip Ql (U) Negative Negative [facility] Nitrite Auto test strip Ql (U) Negative Negative [facility] pH (U) 7.0 [pH] [facility] Protein (U) [Mass/Vol] Negative Negative mg/dL [facility] Specific gravity (U) [Rel density] 1.020 [facility] Urobilinogen (U) [Mass/Vol] <2.0 <2.0 mg/dL [facility] WBC Auto (Urine sed) [#/Area] 2 [facility] Microscopic examinat ion is performed on all urinalysis samples and only positive findings are reported. The test for blood on the chemical analytic portion of urinalysis may also be positive due to hemoglobinuria and myoglobinuria and if red blood cells are present they are quantified by microscopic examination. [facility] Urine Pregnancyon 06-22-2020 HCG ( test) Ql (U) Negative Negative [facility] Interpretation and review of laboratory results Normal [facility] Social History Date Type Detail Facility Start: 06-23-2020 End: 07-08-2020 Tobacco smoking status NHIS Never smoker [facility] Start: 06-23-2020 End: 07-08-2020 Tobacco use and exposure Never used [facility] Start: 06-23-2020 End: 07-08-2020 Alcohol intake Ex-drinker (finding) [facility] Sex Assigned At Not on file [facility] Exposure to SARS-CoV-2 (event) Not sure [facility] Vital Signs Date Time Vital Sign Value Performing Clinician Faci lity 07-08-2020 15:34-0500 BP Diastolic 79 mm[Hg] [facility] 07-08-2020 15:34-0500 BP Systolic 125 mm[Hg] [facility] 07-08-2020 15:34-0500 Pulse (Heart Rate) 81 /min [facility] 07-08-2020 15:34-0500 Pulse Oximetry 99 % [facility] 07-08-2020 15:34-0500 Respiratory Rate 16 /min [facility] 07-08-2020 13:50-0500 BMI (Body Mass Index) 20.36 kg/m2 [facility] 07-08-2020 13:50-0500 Body Temperature 98.49 [degF] [facility] 07-08-2020 13:50-0500 Body weight 58.97 kg [facility] 07-08-2020 13:50-0500 Height 170.2 cm [facility] 06-23-2020 07:35-0500 Body Temperature 98.01 [degF] [place] 06-23-2020 07:35-0500 BP Diastolic 68 mm[Hg] [place] 06-23-2020 07:35-0500 BP Systolic 106 mm[Hg] [place] 06-23-2020 07:35-0500 Pulse (Heart Rate) 75 /min [place] 06-23-2020 07:35-0500 Pulse Oximetry 94 % [place] 06-23-2020 07:35-0500 Respiratory Rate 16 /min [place] 06-22-2020 14:15-0500 BMI (Body Mass Index) 20.36 kg/m2 [place] 06-22-2020 14:15-0500 Body weight 58.97 kg [place] 06-22-2020 14:15-0500 Height 170.2 cm [place] Discharge Instructions * Instructions* Magdi Salazar MD - 06/23/[address] Salazar (Hernia Repair/Gallbladder) [phone] No Lifting, no bending, no pushing May [...] A MEDICAL NATURE, CALL YOUR DOCTOR/EMERGENCY ROOM. [facility] EMERGENCY ROOM [phone] Make a follow-up appointment with your surgeon. Post Operative Instructions Dr Salazar (Hernia Repair/Gallbladder) [phone] No Lifting, no bending, no pushing May [...] A MEDICAL NATURE, CALL YOUR DOCTOR/EMERGENCY ROOM. [facility] EMERGENCY ROOM [phone] Make a follow-up appointment with your surgeon. documented in this encounter* Attachments The following attachments cannot be sent through Care Everywhere. 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 Patient is to be kept n.p.o. He would like 3.375 of Zosyn given to the patient. He would like the patient admitted to his service. Clinical Impression: 1. Acute appendicitis with localized peritonitis, without perforation, abscess, or gangrene Disposition: hospitalize to Operating Room Andrey Valdez M.D. Attending Physician [facility] Emergency Departments 06/22/2020 Portions [...] lobby. Pt alert, oriented and stable at [facility]. ED PROVIDER NOTE [facility] EMERGENCY DEPARTMENT NAME: Mele Thompson AGE: 24 y.o. : 1995 VISIT DATE: 07/08/2020 CSN: [id number] PCP: Physician No Chief Complaint Patient presents [...] APPENDECTOMY LAPAROSCOPIC; Surgeon: Magdi Salazar MD; Location: [facility]; Service: General Surgery History reviewed. No pertinent [...] file Gets together: Not on file Attends buddhist service: Not on file Active member of [...] Colorless, Yellow Clarity, Urine Clear Clear Specific [place] 1.020 1.005 - 1.025 pH, Urine 7.5 [...] 1. Magdi Salazar MD. Specialty: General Surgery [address] [place], [place] [id number] Contact information for after-discharge care Follow-up information [...] RN - 06/23/2020 8:50 AM ESTPlan of Care - Marylu Orozco RN - 06/23/2020 3:58 [...] change in drainage on op-sites. MELE THOMPSON [facility] [id number] N [id number] 1995 DATE 06/22/2020 OPERATIVE REPORT SURGEON MAGDI [...] called when every member of the operating democrat was in and around the table. She [...] utilizing 0 Ethibond with an open technique. Tnhqwv-fe-vxwak suture was placed after complete desufflation of [...] appendicitis. MAGDI SALAZAR MD D 06/22/2020 20:33 [id number] T 06/23/2020 01:38 VMT/MODL Umbilical dressing saturated with light pink serous drainage.Pubic dressing 1/2 saturated with shadow of pink drainage. Brief Post Operative Note Patient Name: Mele Thompson : 1995 (24 y.o.) Date of Service: 06/22/2020 CSN: [id number] Procedure(s): APPENDECTOMY LAPAROSCOPIC Pre-Operative Diagnoses: RIGHT SIDED ABDOMINAL PAIN - ACUTE APPENDICITIS Post-Operative Diagnoses: ACUTE RETROCECAL APPENDICITIS Surgeon(s) and Role: * Magdi Salazar MD - Primary Anesthesiologist: Jaylin Buckley MD Shift Superintendent Caustic Cresylate: Tanisha Varghese RN Scrub Person Assist: Jadyn [...] previous ECG Rhythm: sinus rhythm BPM: 85 NJ Interval: 108 QRS Interval: 82 QT Interval: 426 Clinical impression: non-specific ECG documented in this encounter INFORMATION SOURCE (unrecogn ized section and content) DATE CREATED AUTHOR 07/13/2020 [facility] DATE CREATED AUTHOR AUTHOR'S ORGANIZ ATION 01/28/2023 [facility] DATE CREATED AUTHOR AUTHOR'S ORGANIZ ATION 03/14/2024 [facility] FOR RECORDS PERTAINING TO PATIENTS WHO ARE [...] BE BASED ON THE PRIMARY CLINICAL RECORDS. [facility] [employer] provides no warranty or guarantee of the accuracy or completeness of information in this document.
[2024-03-15 15:16] LABS: Estimated Average Glucose 97 mg/dL
== END 2024-03-15 14:00 | disposition home or self-care (01) ==
LOC: LAB 14:00
PROVIDERS: Visit Provider Physician Assistant
DX: Z34.93 Encounter for supervision of normal pregnancy, unspecified, third trimester (principal)
CPT/HCPCS: 36415; 83036

== ENCOUNTER 2024-03-16 07:16 | Outpatient (RCR) | payer BC, SELFPAY ==
[2024-03-16 10:00] VITALS: BP 123/73; PULSE 99; TEMP 36.9; O2SAT 96
[2024-03-16] MEDS: RHO(D) IMMUNE GLOBULIN 1,500 UNIT SYRINGE 1500 UNIT IM (10:02)
--- NOTE | 2024-03-16 10:14 | PC.NURSE ---
1000: Pt. to [facility] amb. for Rhogam injection. Pt. seated in recliner. VSS. Denies questions. Received Rhogam in the past without adverse reaction. Medicated with Rophylac IM to left deltoid as ordered, see documentation. No bleeding to injection site, bandaid applied prophylactically. Tolerated without c/o. 1007: Pt. d/c'd amb. to home.
== END 2024-03-21 23:59 | disposition home or self-care (01) ==
LOC: INF 07:16
PROVIDERS: Visit Provider Obstetrics & Gynecology
DX: O26.893 Other specified pregnancy related conditions, third trimester (principal); Z67.91 Unspecified blood type, Rh negative
CPT/HCPCS: 36415; 83036; 86850; 86900; 86901; 96372; J2790

== ENCOUNTER 2024-04-09 09:03 | Outpatient (OUT) | payer BC, SELFPAY ==
--- NOTE | 2024-04-09 09:04 | US_ITS ---
[address] [address] Patient Name: MELE DOLL MRN: [id number] date: 1995 Sex: F Assigned Patient Location: [facility] Current Patient Location: [facility] Accession/Order Number: [id number] Exam Date: 04/09/2024 09:05 Report Date: 04/09/2024 09:52 At the request of: ELLEN COLIN Procedure: US OB growth EXAMINATION: US OB growth HISTORY: size inconsistent with dates O26.849 COMPARISON: No relevant comparison available. FINDINGS: Heart Rate: 127 bpm Amniotic Fluid Volume: 11.0 cm, largest fluid pocket 3.0 cm Number: 1 Position: Cephalic presentation, longitudinal lie BIOMETRY: BPD: 7.80 cm; 31 weeks 2 days; 21.10 % HC: 30.14 cm; 33 weeks 3 days; 51.90 % AC: 26.76 cm; 30 weeks 6 days; 17.70 % FL: 6.18 cm; 32 weeks 0 days; 37.90 % EFW: 1675.97 g; 24.80 %, 3 lbs. 15 oz. FL/AC: 23.09 FL/BPD: 79.23 HC/AC: 1.13 GESTATIONAL AGE: Age by EDC: 32 weeks 0 days ROSEMARIE by EDC: 2024-06-04 Age by US: 31 weeks 6 days ROSEMARIE by US: 2024-06-05 US/US OB growth IMPRESSION: Normal interval growth Electronically authenticated by: BRAD WILLETT Date: 04/09/2024 09:52
== END 2024-04-09 09:04 | disposition home or self-care (01) ==
LOC: NOMS 09:03
PROVIDERS: Visit Provider Obstetrics & Gynecology
DX: O26.849 Uterine size-date discrepancy, unspecified trimester (principal); Z3A.32 32 weeks gestation of pregnancy
CPT/HCPCS: 76816

== ENCOUNTER 2024-04-25 07:05 | Outpatient (OUT) | payer BC, SELFPAY ==
--- OUTSIDE RECORDS SUMMARY | 2024-04-25 07:08 | XMS_ITS | CCD ---
Author Organization [facility] Care Team Providers Care Chiseler Head Name Role Phone No, Physician Primary Care Provider Unavailabl e NO, PHYSICIAN Primary Care Unavailable MARIELLA, MAGDI REYNOSO Consulting Jujuvamehran SALAZAR, MAGDI REYNOSO Attending Moon SALAZAR, MAGDI REYNOSO Admitting Unavamehran FELIZ, PHYSICIAN Primary Care Unavailable KATE MENDOZA Attending Unavailable KELLY, KATE VELASQUEZ Admitting Unavailable REQUEST, DR FREEDMAN LISTED Primary Care Unavaila ble REINECK, DR STEW Haskins Admitting Unavailabl e REINECK, DR STEW Haskins Attending Unavailabl e DYLON ., SERGIO VASQUEZ Consulting Unavailabl e STRAWSER, [...] Attending Unavailable CRISTI, ELLEN Attending Unavailable CRISTI, ELELN Attending Unavailable CRISTI, ELLEN Attending Unavailable CRISTI, ELLEN Attending Unavailable CRISTI, ELLEN Attending Unavailable CIERA KAUFFMAN Attending Unavailable CRISTI, ELLEN Attending Unavailable CIERA KAUFFMAN Attending Unavailable Medications Current Medications Medication Drug [...] HCGon 01-19-2023 HCG QUANT 67 mIU/mL Normal [facility] Comment on above: Performed By: #### P REGQNT #### [facility] [address] [place] [address] Dr. Tammi Fleming HCG RANGE SEE BELOW Normal [facility] Comment on above: Result Comment: 5-50 0.2-1 WEEK 50-500 1-2 WEEKS 100-5,000 2-3 WEEKS 500-10,000 3-4 WEEKS 1,000-50,000 4-5 WEEKS 10,000-100,000 5-6 WEEKS 15,000-200,000 6-8 WEEKS 10,000-100,000 2-3 MONTHS Performed By: #### P REGQNT #### [facility] [address] [place] [address] Dr. Tammi Fleming PREG QUANT HCGon 01-10-2023 HCG QUANT 231 mIU/mL Normal [facility] Comment on above: Performed By: #### P REGQNT #### [facility] [address] [place] [address] Dr. Tammi Fleming HCG RANGE SEE BELOW Normal [facility] Comment on above: Result Comment: 5-50 0.2-1 WEEK 50-500 1-2 WEEKS 100-5,000 2-3 WEEKS 500-10,000 3-4 WEEKS 1,000-50,000 4-5 WEEKS 10,000-100,000 5-6 WEEKS 15,000-200,000 6-8 WEEKS 10,000-100,000 2-3 MONTHS Performed By: #### P REGQNT #### [facility] [address] [place] [address] Dr. Tammi Fleming CBC AUTO DIFFon 01-04-2023 BASO # 0.0 103/ul Normal 0.0-0.1 [facility] Comment on above: Performed By: #### C BC #### [facility] [address] [place] [address] Dr. Tammi Fleming Basophils/100 WBC (Bld) 0.3 % Normal 0.2-2.0 [facility] Comment on above: Performed By: #### C BC #### [facility] [address] [place] [address] Dr. Tammi Fleming EO # 0.1 103/ul Normal 0.0-0.7 [facility] Comment on above: Performed By: #### C BC #### [facility] [address] [place] [address] Dr. Tammi Fleming Eosinophils/100 WBC (Bld) 0.8 % Critically low 0.9-7.0 [facility] Comment on above: Performed By: #### C BC #### [facility] [address] [place] [address] Dr. Tammi Fleming Erythrocyte distribution width (RBC) [Ratio] 12.0 % Normal 11.0-15.0 [facility] Comment on above: Performed By: #### C BC #### [facility] [address] [place] [address] Dr. Tammi Fleming Hematocrit (Bld) [Volume fraction] 42.6 % Normal 36.0-48.0 [facility] Comment on above: Performed By: #### C BC #### [facility] [address] [place] [address] Dr. Tammi Fleming Hemoglobin (Bld) [Mass/Vol] 14.5 g/dL Normal 12.0-16.0 [facility] Comment on above: Performed By: #### C BC #### [facility] [address] [place] [address] Dr. Tammi Fleming IG # 0.02 10e3/ul Normal 0.00-0.03 [facility] Comment on above: Performed By: #### C BC #### [facility] [address] [place] [address] Dr. Tammi Fleming IG % 0.3 % Normal 0.0-0.5 [facility] Comment on above: Performed By: #### C BC #### [facility] [address] [place] [address] Dr. Tammi Fleming LYMPH # 1.6 103/ul Normal 1.2-3.8 [facility] Comment on above: Performed By: #### C BC #### [facility] [address] [place] [address] Dr. Tammi Fleming Lymphocytes/100 WBC (Bld) 19.9 % Critically low 20.5-60.0 [facility] Comment on above: Performed By: #### C BC #### [facility] [address] [place] [address] Dr. Tammi Fleming MANUAL DIFF REQ NO Normal [facility] Comment on above: Performed By: #### C BC #### [facility] [address] [place] [address] Dr. Tammi Fleming MCH (RBC) [Entitic mass] 29.8 pg Normal 26.7-34.0 [facility] Comment on above: Performed By: #### C BC #### [facility] [address] [place] [address] Dr. Tammi Fleming MCHC (RBC) [Mass/Vol] 34.0 g/dL Normal 29.9-35.2 [facility] Comment on above: Performed By: #### C BC #### [facility] [address] [place] [address] Dr. Tammi Fleming MCV (RBC) [Entitic vol] 87.7 fL Normal 81.0-99.0 [facility] Comment on above: Performed By: #### C BC #### [facility] [address] [place] [address] Dr. Tammi Fleming MONO # 0.4 103/ul Normal 0.3-0.8 [facility] Comment on above: Performed By: #### C BC #### [facility] [address] [place] [address] Dr. Tammi Fleming Monocytes/100 WBC (Bld) 5.0 % Normal 1.7-12.0 [facility] Comment on above: Performed By: #### C BC #### [facility] [address] [place] [address] Dr. Tammi Fleming NEUT # 5.8 103/ul Normal 1.4-6.5 [facility] Comment on above: Performed By: #### C BC #### [facility] [address] [place] [address] Dr. Tammi Fleming Neutrophils/100 WBC (Bld) 73.7 % Normal 43.0-75.0 [facility] Comment on above: Performed By: #### C BC #### [facility] [address] [place] [address] Dr. Tammi Fleming Platelet mean volume (Bld) [Entitic vol] 12.1 fL Normal 9.5-13.5 [facility] Comment on above: Performed By: #### C BC #### [facility] [address] [place] [address] Dr. Tammi Fleming PLT 184 103/ul Normal 150-450 [facility] Comment on above: Performed By: #### C BC #### [facility] [address] [place] [address] Dr. Tammi Fleming RBC 4.86 106/ul Normal 4.20-5.40 [facility] Comment on above: Performed By: #### C BC #### [facility] [address] [address] [address] Tammi Fleming WBC 7.9 103/ul Normal 4.0-11.0 [facility] Comment on above: Performed By: #### C BC #### [facility] [address] [address] [address] Tammi Fleming ER URINE PROFILEon 3 Bilirubin Ql (U) Negative Normal NEGATIVE [facility] Comment on above: Performed By: #### Angela CHRISTIE UMICRO #### [facility] [address] [address] [address] Tammi Fleming Clarity (U) CLEAR Normal CLEAR [facility] Comment on above: Performed By: #### Angela CHRISTIE UMICRO #### [facility] [address] [place] [address] Dr. Tammi Fleming Color (U) LT. YELLOW Normal YELLOW [facility] Comment on above: Performed By: #### Angela CHRISTIE UMICRO #### [facility] [address] [place] [address] Dr. Tammi Fleming ERUAHD A micrscopic examina tion will be performed if indicated. Normal [facility] Comment on above: Performed By: #### Angela CHRISTIE UMICRO #### [facility] [address] [place] [address] Dr. Tammi Fleming Glucose Ql (U) Negative Normal NEGATIVE [facility] Comment on above: Performed By: #### Angela CHRISTIE UMICRO #### [facility] [address] [place] [address] Dr. Tammi Fleming Hemoglobin Ql (U) LARGE Abnormal NEGATIVE [facility] Comment on above: Performed By: #### Angela CHRISTIE UMICRO #### [facility] [address] [place] [address] Dr. Tammi Fleming Ketones Ql (U) Negative Normal NEGATIVE [facility] Comment on above: Performed By: #### Angela CHRISTIE UMICRO #### [facility] [address] [place] [address] Dr. Tammi Fleming LEUKOCYTES Negative Normal NEGATIVE [facility] Comment on above: Performed By: #### CIRILO SORTO #### [facility] [address] [place] [address] Dr. Tammi Fleming Nitrite Ql (U) Negative Normal NEGATIVE [facility] Comment on above: Performed By: #### NAGA SORTORO #### [facility] [address] [place] [address] Dr. Tammi Fleming pH (U) 7.0 [pH] Normal 5-9 [facility] Comment on above: Performed By: #### CIRILO SORTO #### [facility] [address] [place] [address] Dr. Tammi Fleming SPEC GRAVITY <=1.005 Abnormal 1.005-<=1.025 [facility] Comment on above: Performed By: #### NAGA SORTORO #### [facility] [address] [place] [address] Dr. Tammi Fleming UA PROTEIN Negative Normal NEGATIVE/ TRACE [facility] Comment on above: Performed By: #### CIRILO SORTO #### [facility] [address] [place] [address] Dr. Tammi Fleming UR MICRO IND INDICATED Normal [facility] Comment on above: Performed By: #### NAGA SORTORO #### [facility] [address] [place] [address] Dr. Tammi Fleming Urobilinogen Qn (U) 0.2 {Elder'U}/dL Normal 0.2 - 1.0 [facility] Comment on above: Performed By: #### NAGA SORTORO #### [facility] [address] [place] [address] Dr. Tammi Fleming PREG QUANT HCGon 01-04-2023 HCG QUANT 4523 mIU/mL Normal [facility] Comment on above: Performed By: #### P REGQNT #### [facility] [address] [place] [address] Dr. Tammi Fleming HCG RANGE SEE BELOW Normal [facility] Comment on above: Result Comment: 5-50 0.2-1 WEEK 50-500 1-2 WEEKS 100-5,000 2-3 WEEKS 500-10,000 3-4 WEEKS 1,000-50,000 4-5 WEEKS 10,000-100,000 5-6 WEEKS 15,000-200,000 6-8 WEEKS 10,000-100,000 2-3 MONTHS Performed By: #### P REGQNT #### [facility] [address] [place] [address] Dr. Tammi Fleming URINE MICROSCOPIC ONLYon BACTERIA TRACE Abnormal NONE SEEN [facility] Comment on above: Performed By: #### Angela CHRISTIE UMICRO #### [facility] [address] [place] [address] Dr. Tammi Fleming Bacteria identified Cx Nom (U) NOT INDICATED Normal [facility] Comment on above: Performed By: #### Angela CHRISTIE UMICRO #### [facility] [address] [place] [address] Dr. Tammi Fleming CAST NONE SEEN Normal NONE SEEN [facility] Comment on above: Performed By: #### Angela CHRISTIE UMICRO #### [facility] [address] [place] [address] Dr. Tammi Fleming Crystals LM Nom (Urine sed) NONE SEEN Normal NONE SEEN [facility] Comment on above: Performed By: #### Angela CHRISTIE UMICRO #### [facility] [address] [place] [address] Dr. Tammi Fleming Epithelial cells LM Ql (Urine sed) NONE SEEN Normal NONE SEEN /RARE [facility] Comment on above: Performed By: #### E RUR, UMICRO #### [facility] [address] [place] [address] Dr. Tammi Fleming MUCOUS NONE SEEN Normal NONE SEEN [facility] Comment on above: Performed By: #### E JENNIFERR, UMICRO #### [facility] [address] [place] [address] Dr. Tammi Fleming RBC 2-5 Abnormal 0-2 [facility] Comment on above: Performed By: #### E CIRILO CHRISTIE #### [facility] [address] [place], [place] [address] Dr. Tammi Fleming WBC NONE SEEN Normal NONE SEEN [facility] Comment on above: Performed By: #### E CIRILO CHRISTIE #### [facility] [address] [place], [place] [address] Dr. Tammi Fleming US PREG TVon 01-04-2023 [...] DEYVI FELDER Date: 2023-01-04 18:08 Normal [facility] BMPon 07-08-2020 Anion gap [Moles/Vol] 11 mmol/L 10 - 20 mmol/L [facility] Calcium [Mass/Vol] 9.5 mg/dL 8.4 - 10. 2 mg/dL [facility] Chloride [Moles/Vol] 109 mmol/L High 98 - 108 mmol/L [facility] Creatinine [Mass/Vol] 0.85 mg/dL 0.40 - 1.10 [facility] GFR/1.73 sq M predicted among non-blacks MDRD (S/P/Bld) [Vol rate/Area] The eGFR should be used for monitoring renal function only and not for medication dosing. [facility] GFR/1.73 sq M.predicted CKD-EPI (S/P/Bld) [Vol rate/Area] 96 >=60 mL/min/1.73 m2 [facility] Glucose [Mass/Vol] 95 mg/dL 65 - 99 mg/dL [facility] [Moles/Vol] 23 mmol/L 21 - 32 mmol/L [facility] Interpretation and review of laboratory results Abnormal [facility] Potassium [Moles/Vol] 3.5 mmol/L 3.5 - 5.1 mmol/L [facility] Sodium [Moles/Vol] 139 mmol/L 135 - 145 mmol/L [facility] Urea nitrogen [Mass/Vol] 10 mg/dL 8 - 25 mg/dL [facility] Urea nitrogen/Creatinin e [Mass ratio] 11.8 mg/mg [facility] CBC WITH AUTO DIFFERENTIALon 07-08-2020 Basophils (Bld) [#/Vol] 0.02 10*3/uL [facility] Basophils/100 WBC (Bld) 0.2 % [facility] Eosinophils (Bld) [#/Vol] 0.04 10*3/uL [facility] Eosinophils/100 WBC (Bld) 0.5 % [facility] Erythrocyte distribution width (RBC) [Entitic vol] 12.0 % 11.6 - 14.8 % [facility] Hematocrit (Bld) [Volume fraction] 43.3 % 36 - 46 % [facility] Hemoglobin (Bld) [Mass/Vol] 14.7 g/dL 12 - 16 g/dL [facility] Immature granulocytes (Bld) [#/Vol] 0.00 10*3/uL [facility] Immature granulocytes/100 WBC (Bld) 0.00 % [facility] Comment on above: The IG parameter is the percentage of metamyelocytes, myelocytes and promyelocytes. An immature granulocyte count (IG) of 1% or more suggests the possibility of infection, an IG count of 3% is very likely related to an infection. Lymphocytes (Bld) [#/Vol] 2.44 10*3/uL [facility] Lymphocytes/100 WBC (Bld) 30.2 % [facility] MCH (RBC) [Entitic mass] 29.2 pg 26 - 34 pg [facility] MCHC (RBC) [Mass/Vol] 33.9 g/dL 31 - 37 g/dL [facility] MCV (RBC) [Entitic vol] 86.1 fL 80 - 100 fL [facility] Monocytes (Bld) [#/Vol] 0.40 10*3/uL [facility] Monocytes/100 WBC (Bld) 5.0 % [facility] Neutrophils (Bld) [#/Vol] 5.17 10*3/uL [facility] Neutrophils/100 WBC (Bld) 64.1 % [facility] Platelet mean volume (Bld) [Entitic vol] 11.8 fL 9.4 - 12.4 fL [facility] Platelets (Bld) [#/Vol] 228 10*3/uL [facility] RBC (Bld) [#/Vol] 5.03 10*6/uL [facility] WBC (Bld) [#/Vol] 8.07 10*3/uL [facility] CT ABDOMEN PELVIS WITH IV CO NTRAST [...] TueJul 08, 2020 3:59:53 PM EST Normal [facility] Comment on above: Order Comment: Injur y/Trauma or Illness?:Illness/Other How long have you had these symptoms (acute/chronic)?:Acute Reason for exam?:abd pain: nausea Type of Exam?:Initial Additional signs and symptoms?:abd pain x [address] Abdomen Pelvis With IV Co ntrast Onlyon 07-08-2020 Interface, Rad In Samuel De Santiagoq - 07/08/2020 4:02 PM EST EXAMINATION: CT [...] changes from recent appendectomy. Workstation ID: [id number] [facility] EXAMINATION: CT ABDO MEN PELVIS WITH [...] No acute or aggressive osseous abnormality identified. [facility] 1. No acute infectio us, inflammatory or obstructive process identified in the abdomen or pelvis. 2. Postsurgical changes from recent appendectomy. Workstation ID: [id number] [facility] Hepatic Function Panel (LFT) on 07-08-2020 Albumin [Mass/Vol] 3.8 g/dL 3.2 - 5.2 g/dL [facility] ALP [Catalytic activity/Vol] 71 U/L 40 - 140 U/L [facility] ALT [Catalytic activity/Vol] 31 U/L 14 - 65 U/L [facility] AST [Catalytic activity/Vol] 18 U/L 0 - 45 U/L [facility] Bilirubin [Mass/Vol] 0.3 mg/dL 0 - 1.3 mg/dL [facility] Bilirubin.conjugat ed [Mass/Vol] mg/dL 0 - 0.4 mg/dL [facility] Protein [Mass/Vol] 7.9 g/dL 6 - 8 g/dL [facility] alth Lipaseon 07-08-2020 Lipase [Catalytic activity/Vol] 95 U/L 73 - 393 U/L [facility] Otheron 07-08-2020 Interpretation and review of laboratory results Normal [facility] Extra Tube Hold for add-ons. [facility] Comment on above: Auto resulted. URINALYSISon 07-08-2020 Bacteria Auto Ql (U) Rare Abnormal None Seen /hpf [facility] Bilirubin Ql (U) Negative Negative [facility] th Clarity Refractometry automated (U) Clear Clear [facility] Color (U) Yellow Colorless, Yellow [facility] Epithelial cells.squamous Auto (Urine sed) [#/Area] 1 [facility] Glucose Auto test strip (U) [Mass/Vol] Negative Negative mg/dL [facility] Hemoglobin Auto test strip Ql (U) Negative Negative [facility] Interpretation and review of laboratory results Abnormal [facility] Ketones (U) [Mass/Vol] Negative Negative mg/dL [facility] Leukocyte esterase Auto test strip Ql (U) Negative Negative [facility] Nitrite Auto test strip Ql (U) Negative Negative [facility] pH (U) 7.5 [pH] High [facility] Protein (U) [Mass/Vol] Negative Negative mg/dL [facility] Specific gravity (U) [Rel density] 1.020 [facility] Urobilinogen (U) [Mass/Vol] <2.0 <2.0 mg/dL [facility] Microscopic examinat ion is performed on all urinalysis samples and only positive findings are reported. The test for blood on the chemical analytic portion of urinalysis may also be positive due to hemoglobinuria and myoglobinuria and if red blood cells are present they are quantified by microscopic examination. [facility] Urine Pregnancyon 07-08-2020 HCG ( test) Ql (U) Negative Negative [facility] Interpretation and review of laboratory results Normal [facility] CBC WITH AUTO DIFFERENTIALon 06-23-2020 Basophils (Bld) [#/Vol] 0.00 10*3/uL [facility] Basophils/100 WBC (Bld) 0.0 % [facility] Eosinophils (Bld) [#/Vol] 0.00 10*3/uL [facility] Eosinophils/100 WBC (Bld) 0.0 % [facility] Erythrocyte distribution width (RBC) [Entitic vol] 12.2 % 11.6 - 14.8 % [facility] Hematocrit (Bld) [Volume fraction] 37.2 % 36 - 46 % [facility] Hemoglobin (Bld) [Mass/Vol] 12.6 g/dL 12 - 16 g/dL [facility] Immature granulocytes (Bld) [#/Vol] 0.01 10*3/uL [facility] Immature granulocytes/100 WBC (Bld) 0.10 % [facility] Comment on above: The IG parameter is the percentage of metamyelocytes, myelocytes and promyelocytes. An immature granulocyte count (IG) of 1% or more suggests the possibility of infection, an IG count of 3% is very likely related to an infection. Interpretation and review of laboratory results Abnormal [facility] Lymphocytes (Bld) [#/Vol] 0.82 10*3/uL Low [facility] Lymphocytes/100 WBC (Bld) 6.8 % [facility] MCH (RBC) [Entitic mass] 29.3 pg 26 - 34 pg [facility] MCHC (RBC) [Mass/Vol] 33.9 g/dL 31 - 37 g/dL [facility] MCV (RBC) [Entitic vol] 86.5 fL 80 - 100 fL [facility] Monocytes (Bld) [#/Vol] 0.31 10*3/uL [facility] Monocytes/100 WBC (Bld) 2.6 % [facility] Neutrophils (Bld) [#/Vol] 10.86 10*3/uL High [facility] Neutrophils/100 WBC (Bld) 90.5 % [facility] Platelet mean volume (Bld) [Entitic vol] 12.1 fL 9.4 - 12.4 fL [facility] Platelets (Bld) [#/Vol] 197 10*3/uL [facility] RBC (Bld) [#/Vol] 4.30 10*6/uL [facility] ealth WBC (Bld) [#/Vol] 12.00 10*3/uL [facility] CBC WITH AUTO DIFFERENTIALon 06-22-2020 Basophils (Bld) [#/Vol] 0.02 10*3/uL [facility] Basophils/100 WBC (Bld) 0.1 % [facility] Eosinophils (Bld) [#/Vol] 0.00 10*3/uL [facility] Eosinophils/100 WBC (Bld) 0.0 % [facility] Erythrocyte distribution width (RBC) [Entitic vol] 12.0 % 11.6 - 14.8 % [facility] Hematocrit (Bld) [Volume fraction] 40.2 % 36 - 46 % [facility] Hemoglobin (Bld) [Mass/Vol] 14.0 g/dL 12 - 16 g/dL [facility] Immature granulocytes (Bld) [#/Vol] 0.02 10*3/uL [facility] Immature granulocytes/100 WBC (Bld) 0.10 % [facility] Comment on above: The IG parameter is the percentage of metamyelocytes, myelocytes and promyelocytes. An immature granulocyte count (IG) of 1% or more suggests the possibility of infection, an IG count of 3% is very likely related to an infection. Interpretation and review of laboratory results Abnormal [facility] Lymphocytes (Bld) [#/Vol] 1.20 10*3/uL [facility] Lymphocytes/100 WBC (Bld) 5.9 % [facility] MCH (RBC) [Entitic mass] 29.4 pg 26 - 34 pg [facility] MCHC (RBC) [Mass/Vol] 34.8 g/dL 31 - 37 g/dL [facility] MCV (RBC) [Entitic vol] 84.5 fL 80 - 100 fL [facility] Monocytes (Bld) [#/Vol] 0.67 10*3/uL [facility] Monocytes/100 WBC (Bld) 3.3 % [facility] Neutrophils (Bld) [#/Vol] 18.51 10*3/uL High [facility] Neutrophils/100 WBC (Bld) 90.6 % [facility] Platelet mean volume (Bld) [Entitic vol] 11.7 fL 9.4 - 12.4 fL [facility] [facility] Platelets (Bld) [#/Vol] 223 10*3/uL [facility] RBC (Bld) [#/Vol] 4.76 10*6/uL [facility] ealth WBC (Bld) [#/Vol] 20.42 10*3/uL High [facility] COVID-19, MOLECULARon 2019 SARS-COV-2 (BERG ID) Not Detected Normal Not Detected [facility] Comment on above: Result Comment: This test [...] at the following links: For Healthcare Providers: https://www.fda.gov/media/863702/download For Patients: https://www.fda.gov/media/284870/download Performed By: #### L [id number] #### SH [address] [address] Kenneth Arrieta M.D. [id number] COVID-19, Molecularon 2019 Interpretation and review of laboratory results Normal [facility] SARS-CoV-2 Not Detected Not Detected [facility] Comment on above: This test was [...] at the following links: For Healthcare Providers: https://www.fda.gov/media/469026/download For Patients: https://www.fda.gov/media/708166/download CT ABDOMEN PELVIS WITH IV CO NTRAST [...] seen directed medially within the central anterior gtp-uz-oqumq pelvis. No bowel obstruction. Some physiologic free [...] is directed medially within the central anterior vnh-qy-ystdp pelvis with no bowel obstruction. 3. Some [...] TueJun 22, 2020 8:48:07 PM EST Normal [facility] Comment on above: Order Comment: Injur y/Trauma [...] seen directed medially within the central anterior gqi-mz-kjdwq pelvis. No bowel obstruction. Some physiologic free [...] is directed medially within the central anterior txj-yh-plujp pelvis with no bowel obstruction. 3. Some physiologic free fluid in the cul-de-sac. Some small follicles seen in the ovaries bilaterally. Results were called by Dr. Clifford Wilson to Dr. ANDREY VALDEZ on 06/22/2020 at 16:43. SHINT/adrianna Workstation ID: [id number] [facility] 1. Acute appendiciti s. The appendix is seen just anterior to the right common iliac artery and is distended approaching 9 mm with wall enhancement and surrounding fatty stranding. 2. Moderate amount of fecal matter in the proximal colon. The cecum is directed medially within the central anterior rji-vy-novht pelvis with no bowel obstruction. 3. Some physiologic free fluid in the cul-de-sac. Some small follicles seen in the ovaries bilaterally. Results were called by Dr. Clifford Wilson to Dr. ANDREY VALDEZ on 06/22/2020 at 16:43. GJT/dnb Workstation ID: [id number] [facility] EXAMINATION: CT ABDO MEN PELVIS WITH [...] seen directed medially within the central anterior rhr-ta-savia pelvis. No bowel obstruction. Some physiologic free fluid in the cul-de-sac. Some follicles seen in the ovaries bilaterally. The uterus and urinary bladder unremarkable. No acute osseous abnormality. [facility] Comprehensive Metabolic Pane kendra 06-22-2020 Albumin [Mass/Vol] 4.0 g/dL 3.2 - 5.2 g/dL [facility] ALP [Catalytic activity/Vol] 63 U/L 40 - 140 U/L [facility] ALT [Catalytic activity/Vol] 27 U/L 14 - 65 U/L [facility] Anion gap [Moles/Vol] 10 mmol/L 10 - 20 mmol/L [facility] AST [Catalytic activity/Vol] 18 U/L 0 - 45 U/L [facility] Bilirubin [Mass/Vol] 0.5 mg/dL 0 - 1.3 mg/dL [facility] Calcium [Mass/Vol] 9.1 mg/dL 8.4 - 10. 2 mg/dL [facility] Chloride [Moles/Vol] 109 mmol/L High 98 - 108 mmol/L [facility] Creatinine [Mass/Vol] 0.83 mg/dL 0.40 - 1.10 [facility] GFR/1.73 sq M predicted among non-blacks MDRD (S/P/Bld) [Vol rate/Area] The eGFR should be used for monitoring renal function only and not for medication dosing. [facility] GFR/1.73 sq M.predicted CKD-EPI (S/P/Bld) [Vol rate/Area] 98 >=60 mL/min/1.73 m2 [facility] Glucose [Mass/Vol] 96 mg/dL 65 - 99 mg/dL [facility] HCO3 [Moles/Vol] 25 mmol/L 21 - 32 mmol/L [facility] Potassium [Moles/Vol] 3.7 mmol/L 3.5 - 5.1 mmol/L [facility] Protein [Mass/Vol] 7.8 g/dL 6 - 8 g/dL [facility] alth Sodium [Moles/Vol] 140 mmol/L 135 - 145 mmol/L [facility] Urea nitrogen [Mass/Vol] 10 mg/dL 8 - 25 mg/dL [facility] Urea nitrogen/Creatinin e [Mass ratio] 12.0 mg/mg [facility] ECG 12-LEADon 06-22-2020 Andrey Valdez MD 2019 4:57 PM ECG 12 Lead Date/Time: 06/22/2020 4:51 PM Performed by: Andrey Valdez MD Authorized by: Andrey Valdez MD Interpreted by ED attending physician Comparison: not compared with previous ECG Rhythm: sinus rhythm BPM: 85 GA Interval: 108 QRS Interval: 82 QT Interval: 426 Clinical impression: non-specific ECG [facility] Lipaseon 06-22-2020 Lipase [Catalytic activity/Vol] 72 U/L Low 73 - 393 U/L [facility] Otheron 06-22-2020 Interpretation and review of laboratory results Abnormal [facility] URINALYSISon 06-22-2020 Bacteria Auto Ql (U) Few Abnormal None Seen /hpf [facility] Bilirubin Ql (U) Negative Negative [facility] th Clarity Refractometry automated (U) Cloudy Abnormal Clear [facility] Color (U) Yellow Colorless, Yellow [facility] Epithelial cells.squamous Auto (Urine sed) [#/Area] 3 [facility] Glucose Auto test strip (U) [Mass/Vol] Negative Negative mg/dL [facility] Hemoglobin Auto test strip Ql (U) Negative Negative [facility] Interpretation and review of laboratory results Abnormal [facility] Ketones (U) [Mass/Vol] 20 Abnormal Negative mg/dL [facility] Leukocyte esterase Auto test strip Ql (U) Negative Negative [facility] Nitrite Auto test strip Ql (U) Negative Negative [facility] pH (U) 7.0 [pH] [facility] Protein (U) [Mass/Vol] Negative Negative mg/dL [facility] Specific gravity (U) [Rel density] 1.020 [facility] Urobilinogen (U) [Mass/Vol] <2.0 <2.0 mg/dL [facility] WBC Auto (Urine sed) [#/Area] 2 [facility] Microscopic examinat ion is performed on all urinalysis samples and only positive findings are reported. The test for blood on the chemical analytic portion of urinalysis may also be positive due to hemoglobinuria and myoglobinuria and if red blood cells are present they are quantified by microscopic examination. [facility] Urine Pregnancyon 06-22-2020 HCG ( test) Ql (U) Negative Negative [facility] Interpretation and review of laboratory results Normal [facility] Vital Signs Date Time Vital Sign Value Performing Clinician Faci lity 07-08-2020 15:34-0500 BP Diastolic 79 mm[Hg] [facility] 07-08-2020 15:34-0500 BP Systolic 125 mm[Hg] [facility] 07-08-2020 15:34-0500 Pulse (Heart Rate) 81 /min [facility] 07-08-2020 15:34-0500 Pulse Oximetry 99 % [facility] 07-08-2020 15:34-0500 Respiratory Rate 16 /min [facility] 07-08-2020 13:50-0500 BMI (Body Mass Index) 20.36 kg/m2 [facility] 07-08-2020 13:50-0500 Body Temperature 98.49 [degF] Kate [facility] 07-08-2020 13:50-0500 Body weight 58.97 kg Kate [facility] 07-08-2020 13:50-0500 Height 170.2 cm Kate [facility] 06-23-2020 07:35-0500 Body Temperature 98.01 [degF] Andrey [facility] 06-23-2020 07:35-0500 BP Diastolic 68 mm[Hg] [facility] 06-23-2020 07:35-0500 BP Systolic 106 mm[Hg] [facility] 06-23-2020 07:35-0500 Pulse (Heart Rate) 75 /min [facility] 06-23-2020 07:35-0500 Pulse Oximetry 94 % [facility] 06-23-2020 07:35-0500 Respiratory Rate 16 /min [facility] 06-22-2020 14:15-0500 BMI (Body Mass Index) 20.36 kg/m2 [facility] 06-22-2020 14:15-0500 Body weight 58.97 kg [facility] 06-22-2020 14:15-0500 Height 170.2 cm [facility] Encounters Encounter Date Encounter Type Care Provider Facility Start: 04-24-2024 End: 04-24-2024 ambulatory CIERA DALY Not Available Start: 04-09-2024 End: 04-09-2024 ambulatory ELLEN CRISTI Not Available Start: 03-12-2024 End: 03-12-2024 ambulatory CIERA DALY Not Available Start: 02-27-2024 End: 02-27-2024 ambulatory [...] Emergency department patient visit PHYSICIAN [facility] Start: 07-08-2020 End: 07-08-2020 Emergency department patient visit Kate Mendoza Work Phone: [facility] Emergency Department Comment on above: Abdominal pain, unsp ecified abdominal location (Primary Dx) Start: 06-22-2020 End: 06-23-2020 Patient encounter procedure PHYSICIAN [facility] Start: 06-22-2020 End: 06-23-2020 Emergency department patient visit Andrey Valdez Work Phone: [facility] Med Surg Comment on above: Acute appendicitis w ith localized peritonitis, without perforation, abscess, or gangrene (Primary Dx) Procedures Date Procedure Procedure Detail Performing Clinician Start: 07-08-2020 Ct abdomen & pelvis w/contrast material Kate Eva [facility] Work Phone: Start: 07-08-2020 Basic metabolic 2000 panel - Serum or Plasma Kate Eva [facility] Work Phone: Start: 07-08-2020 Choriogonadotropin ( test) [Presence] in Urine Katejalen Velasquez [facility] Work Phone: Start: 07-08-2020 Complete blood count with white cell differential, automated [employer] [facility] Work Phone: Start: 07-08-2020 Complete blood count with white cell differential, manual [employer] [facility] Work Phone: Start: 07-08-2020 Hepatic function 2000 panel - Serum or Plasma [employer] [facility] Work Phone: Start: 07-08-2020 LIGHT BLUE TOP [employer] [facility] Work Phone: Start: 07-08-2020 LIGHT GREEN TOP [...] Work Phone: Start: 06-22-2020 12 lead ECG Tornado Wu Work Phone: Start: 06-22-2020 Ct abdomen & pelvis w/contrast material Andrey Wu Work Phone: Start: 06-22-2020 Complete blood count with white cell differential, automated Andrey Valdez Work Phone: Start: 06-22-2020 Complete blood count with white cell differential, manual Andrey Valdez Work Phone: Start: 06-22-2020 Comprehensive metabolic 2000 panel - Serum or Plasma [employer] Work Phone: Start: 06-22-2020 Lipase [Enzymatic activity/volume] in Serum or Plasma Andrey Wu Work Phone: Start: 06-22-2020 Choriogonadotropin ( test) [Presence] in Urine Andrey Valdez Work Phone: Start: 06-22-2020 Urinalysis Tornado Valdez Work Phone: Plan of Treatment Date Care Activity Detail Author Start: 04-22-2020 Influenza vaccination given Se quential Influenza Vaccine (#1) [facility] Start: 2012 Hepatitis C antibody , confirmatory test Hepatitis C Screening [facility] Start: 2009 HIV screening HIV Screening [facility] Start: 2006 Adolescent depressio n screening assessment Depression Screening (PHQ9) [facility] Start: 2005 Vaccination for tri n papillomavirus HPV Vaccines (1 - 2-dose series) [facility] Start: 1997 History and physical examination, annual for health maintenance Wellness Visit [facility] Start: 1994 Screening for malign ant neoplasm of cervix Pap Smear [facility] Start: 1994 Tetanus vaccination Tetanus: Every 1 0yrs [facility] Procedure on tissue specimen Tis kyara Exam Pathology and Cytology STAT Release Upon Ordering for 1 Occurrences starting 06/22/2020 [facility] Comment on above: Release Upon Orderin g for 1 Occurrences starting 06/22/2020 Payers Date Payer Category Payer Unknown [employer] PPO [id number] 2019-Present [id number] 2019 Unknown [id number] 1994 Unknown [id number] 1994 Unknown [id number] [id number] 1994 Unknown [id number] 1994 Unknown [id number] [id number] 1994 Unknown [id number] [id number] 1994 Unknown [id number] [id number] 1994 Unknown [id number] [id number] 1994 Unknown [id number] [id number] 1994 Unknown [id number] [id number] 1994 Unknown [id number] [id number] 1994 Unknown [id number] [id number] 1994 Unknown [id number] 2.16.840.1.198664.3.579.2.1258 1994 Unknown [id number] [id number] 1994 Unknown [id number] [id number] 1994 Unknown [id number] [id number] 1959 Unknown [id number] Social History Date Type Detail Facility Start: 06-23-2020 End: 07-08-2020 Tobacco smoking status NDIS Never smoker [facility] Start: 06-23-2020 End: 07-08-2020 Tobacco use and exposure Never used [facility] Start: 06-23-2020 End: 07-08-2020 Alcohol intake Ex-drinker (finding) [facility] Sex Assigned At Not on file [facility] Exposure to SARS-CoV-2 (event) Not sure [facility] Discharge Instructions * Instructions* Magdi Salazar MD - 06/23/[address] Salazar (Hernia Repair/Gallbladder) [phone] No Lifting, no bending, no pushing May [...] A MEDICAL NATURE, CALL YOUR DOCTOR/EMERGENCY ROOM. [facility] EMERGENCY ROOM [phone] Make a follow-up appointment with your surgeon. Post Operative Instructions Dr Salazar (Hernia Repair/Gallbladder) [phone] No Lifting, no bending, no pushing May [...] A MEDICAL NATURE, CALL YOUR DOCTOR/EMERGENCY ROOM. [facility] EMERGENCY ROOM [phone] Make a follow-up appointment with your surgeon. documented in this encounter* Attachments The following attachments cannot be sent through Care Everywhere. 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 Patient is to be kept n.p.o. He would like 3.375 of Zosyn given to the patient. He would like the patient admitted to his service. Clinical Impression: 1. Acute appendicitis with localized peritonitis, without perforation, abscess, or gangrene Disposition: hospitalize to Operating Room Andrey Valdez M.D. Attending Physician [facility] Emergency Departments 06/22/2020 Portions of this note [...] and stable at dc. ED PROVIDER NOTE [facility] EMERGENCY DEPARTMENT NAME: Mele Doll AGE: 24 y.o. : 1995 VISIT DATE: 07/08/2020 CSN: [id number] PCP: Physician No Chief Complaint Patient presents [...] file Gets together: Not on file Attends pentecostal service: Not on file Active member of [...] Colorless, Yellow Clarity, Urine Clear Clear Specific Gregory 1.020 1.005 - 1.025 pH, Urine 7.5 [...] Magdi Salazar MD. Specialty: General Surgery [facility] [address] Contact information for after-discharge care Follow-up information [...] change in drainage on op-sites. MELE DOLL [facility] [id number] [facility] [id number] 1995 DATE 06/22/2020 OPERATIVE REPORT SURGEON MAGDI [...] called when every member of the operating alliance party was in and around the table. [...] utilizing 0 Ethibond with an open technique. Kjnjos-vb-pkjkf suture was placed after complete desufflation of [...] appendicitis. MAGDI SALAZAR MD D 06/22/2020 20:33 [id number] T 06/23/2020 01:38 VMT/MODL Umbilical dressing saturated with light pink serous drainage.Pubic dressing 1/2 saturated with shadow of pink drainage. Brief Post Operative Note Patient Name: Mele Doll : 1995 (24 y.o.) Date of Service: 06/22/2020 CSN: [id number] Procedure(s): APPENDECTOMY LAPAROSCOPIC Pre-Operative Diagnoses: RIGHT SIDED ABDOMINAL PAIN - ACUTE APPENDICITIS Post-Operative Diagnoses: ACUTE RETROCECAL APPENDICITIS Surgeon(s) and Role: * Magdi Salazar MD - Primary Anesthesiologist: Jaylin Buckley MD Manager Surgery: Tanisha Varghese RN Scrub Person Assist: Jadyn [...] previous ECG Rhythm: sinus rhythm BPM: 85 GA Interval: 108 QRS Interval: 82 QT Interval: 426 Clinical impression: non-specific ECG documented in this encounter INFORMATION SOURCE (unrecogn ized section and content) DATE CREATED AUTHOR 07/13/2020 [facility] DATE CREATED AUTHOR AUTHOR'S ORGANIZ ATION 01/28/2023 [facility] DATE CREATED AUTHOR AUTHOR'S ORGANIZ ATION 04/24/2024 [facility] EPIC FOR RECORDS PERTAINING TO [...] BE BASED ON THE PRIMARY CLINICAL RECORDS. [employer] provides no warranty or guarantee of the accuracy or completeness of information in this document.
--- NOTE | 2024-04-25 14:08 | US_ITS ---
[address] [address] Patient Name: MELE DOLL MRN: [id number] date: 1995 Sex: F Assigned Patient Location: [facility] Current Patient Location: [facility] Accession/Order Number: [id number] Exam Date: 04/25/2024 14:23 Report Date: 04/26/2024 06:48 At the request of: CIERA KAUFFMAN Procedure: US OB BPP w non-stress EXAMINATION: US OB BPP w non-stress HISTORY:HISTORY OF PLACENTA PREVIA Z87.59 COMPARISON: Ultrasound OB growth 04/09/2024 TECHNIQUE: Ultrasound biophysical profile was performed in the radiology department. BREATHING MOVEMENTS: 0 GROSS BODY MOVEMENTS: 2 TONE: 2 QUALITATIVE AMNIOTIC FLUID VOLUME: 2 PRESENTATION: CEPHALIC HEART RATE: 137.76 bpm AMNIOTIC FLUID VOLUME: 12.76 cm GESTATIONAL AGE: 34 weeks 2 days US/US OB BPP w non-stress IMPRESSION: Total biophysical profile score: 6 Electronically authenticated by: EMERSON DOUGLASS Date: 04/26/2024 06:48
--- NOTE | 2024-04-25 14:10 | US_ITS ---
[address] [address] Patient Name: MELE DOLL MRN: [id number] date: 1995 Sex: F Assigned Patient Location: [facility] Current Patient Location: [place] Accession/Order Number: [id number] Exam Date: 04/25/2024 14:23 Report Date: 04/26/2024 06:51 At the request of: CIERA KAUFFMAN Procedure: US OB growth EXAMINATION: US OB growth HISTORY: SIZE INCONSISTENT WITH DATES 026.649 COMPARISON: Ultrasound OB growth 04/09/2024 FINDINGS: Heart Rate: 137.76 bpm Amniotic Fluid Volume: 12.8 cm; normal range Number: 1 Position: CEPHALIC BIOMETRY: BPD: 8.38 cm; 33 weeks 5 days; 32.50 % HC: 30.35 cm; 33 weeks 5 days; 8.30 % AC: 27.80 cm; 31 weeks 6 days; 3.80 % FL: 6.29 cm; 32 weeks 4 days; 7.20 % EFW: 1970.07 g; 6.50 % FL/AC: 22.64 FL/BPD: 75.09 HC/AC: 1.09 GESTATIONAL AGE: Age by EDC: 34 weeks 2 days ROSEMARIE by EDC: 2024-06-04 Age by US: 33 weeks 0 days ROSEMARIE by US: 2024-06-13 US/US OB growth IMPRESSION: 1. Single live intrauterine with growth detailed above. 2. Estimated weight is at 7th percentile. Electronically authenticated by: EMERSON DOUGLASS Date: 04/26/2024 06:51
[2024-04-25 15:01] VITALS: BP 129/73; PULSE 104
--- NOTE | 2024-04-25 15:42 | PC.NURSE ---
growth 6.5%; 1970
== END 2024-04-25 16:14 | disposition home or self-care (01) ==
LOC: US 07:05 → FBC 14:03
PROVIDERS: PCP Obstetrics & Gynecology; Visit Provider Obstetrics & Gynecology
DX: O26.843 Uterine size-date discrepancy, third trimester (principal); Z87.59 Personal history of other complications of pregnancy, childbirth and the puerperium; Z3A.33 33 weeks gestation of pregnancy
CPT/HCPCS: 76816; 76818

== ENCOUNTER 2024-04-26 07:06 | Outpatient (OUT) | payer BC, SELFPAY ==
--- OUTSIDE RECORDS SUMMARY | 2024-04-26 07:09 | XMS_ITS | CCD ---
Author Organization [facility] Care Team Providers Care Talent Development Director Name Role Phone No, Physician Primary Care [...] HCGon 01-19-2023 HCG QUANT 67 mIU/mL Normal [facility] Comment on above: Performed By: #### P REGQNT #### [facility] [address] [place] [address] Dr. Tammi Fleming HCG RANGE SEE BELOW Normal [facility] Comment on above: Result Comment: 5-50 0.2-1 WEEK 50-500 1-2 WEEKS 100-5,000 2-3 WEEKS 500-10,000 3-4 WEEKS 1,000-50,000 4-5 WEEKS 10,000-100,000 5-6 WEEKS 15,000-200,000 6-8 WEEKS 10,000-100,000 2-3 MONTHS Performed By: #### P REGQNT #### [facility] [address] [place] [address] Dr. Tammi Fleming PREG QUANT HCGon 01-10-2023 HCG QUANT 231 mIU/mL Normal [facility] Comment on above: Performed By: #### P REGQNT #### [facility] [address] [place] [address] Dr. Tammi Fleming HCG RANGE SEE BELOW Normal [facility] Comment on above: Result Comment: 5-50 0.2-1 WEEK 50-500 1-2 WEEKS 100-5,000 2-3 WEEKS 500-10,000 3-4 WEEKS 1,000-50,000 4-5 WEEKS 10,000-100,000 5-6 WEEKS 15,000-200,000 6-8 WEEKS 10,000-100,000 2-3 MONTHS Performed By: #### P REGQNT #### [facility] [address] [place] [address] Dr. Tammi Fleming CBC AUTO DIFFon 01-04-2023 BASO # 0.0 103/ul Normal 0.0-0.1 [facility] Comment on above: Performed By: #### C BC #### [facility] [address] [place] [address] Dr. Tammi Fleming Basophils/100 WBC (Bld) 0.3 % Normal 0.2-2.0 [facility] Comment on above: Performed By: #### C BC #### [facility] [address] [place] [address] Dr. Tmami Fleming EO # 0.1 103/ul Normal 0.0-0.7 [facility] Comment on above: Performed By: #### C BC #### [facility] [address] [place] [address] Dr. Tammi Fleming Eosinophils/100 WBC (Bld) 0.8 % Critically low 0.9-7.0 [facility] Comment on above: Performed By: #### C BC #### [facility] [address] [place] [address] Dr. Tammi Fleming Erythrocyte distribution width (RBC) [Ratio] 12.0 % Normal 11.0-15.0 [facility] Comment on above: Performed By: #### C BC #### [facility] [address] [place] [address] Dr. Tammi Fleming Hematocrit (Bld) [Volume fraction] 42.6 % Normal 36.0-48.0 [facility] Comment on above: Performed By: #### C BC #### [facility] [address] [place] [address] Dr. Tammi Fleming Hemoglobin (Bld) [Mass/Vol] 14.5 g/dL Normal 12.0-16.0 [facility] Comment on above: Performed By: #### C BC #### [facility] [address] [place] [address] Dr. Tammi Fleming IG # 0.02 10e3/ul Normal 0.00-0.03 [facility] Comment on above: Performed By: #### C BC #### [facility] [address] [place] [address] Dr. Tammi Fleming IG % 0.3 % Normal 0.0-0.5 [facility] Comment on above: Performed By: #### C BC #### [facility] [address] [place] [address] Dr. Tammi Fleming LYMPH # 1.6 103/ul Normal 1.2-3.8 [facility] Comment on above: Performed By: #### C BC #### [facility] [address] [place] [address] Dr. Tammi Fleming Lymphocytes/100 WBC (Bld) 19.9 % Critically low 20.5-60.0 [facility] Comment on above: Performed By: #### C BC #### [facility] [address] [place] [address] Dr. Tammi Fleming MANUAL DIFF REQ NO Normal [facility] Comment on above: Performed By: #### C BC #### [facility] [address] [place] [address] Dr. Tammi Fleming MCH (RBC) [Entitic mass] 29.8 pg Normal 26.7-34.0 [facility] Comment on above: Performed By: #### C BC #### [facility] [address] [place] [address] Dr. Tammi Fleming MCHC (RBC) [Mass/Vol] 34.0 g/dL Normal 29.9-35.2 [facility] Comment on above: Performed By: #### C BC #### [facility] [address] [place] [address] Dr. Tammi Fleming MCV (RBC) [Entitic vol] 87.7 fL Normal 81.0-99.0 [facility] Comment on above: Performed By: #### C BC #### [facility] [address] [place] [address] Dr. Tammi Fleming MONO # 0.4 103/ul Normal 0.3-0.8 [facility] Comment on above: Performed By: #### C BC #### [facility] [address] [place] [address] Dr. Tammi Fleming Monocytes/100 WBC (Bld) 5.0 % Normal 1.7-12.0 [facility] Comment on above: Performed By: #### C BC #### [facility] [address] [place] [address] Dr. Tammi Fleming NEUT # 5.8 103/ul Normal 1.4-6.5 [facility] Comment on above: Performed By: #### C BC #### [facility] [address] [place] [address] Dr. Tammi Fleming Neutrophils/100 WBC (Bld) 73.7 % Normal 43.0-75.0 [facility] Comment on above: Performed By: #### C BC #### [facility] [address] [place] [address] Dr. Tammi Fleming Platelet mean volume (Bld) [Entitic vol] 12.1 fL Normal 9.5-13.5 [facility] Comment on above: Performed By: #### C BC #### [facility] [address] [place] [address] Dr. Tammi Fleming PLT 184 103/ul Normal 150-450 [facility] Comment on above: Performed By: #### C BC #### [facility] [address] [place] [address] Dr. Tammi Fleming RBC 4.86 106/ul Normal 4.20-5.40 [facility] Comment on above: Performed By: #### C BC #### [facility] [address] [address] [address] Tammi Fleming WBC 7.9 103/ul Normal 4.0-11.0 [facility] Comment on above: Performed By: #### C BC #### [facility] [address] [address] [address] Tammi Fleming ER URINE PROFILEon 3 Bilirubin Ql (U) Negative Normal NEGATIVE [facility] Comment on above: Performed By: #### Angela CHRISTIE UMICRO #### [facility] [address] [address] [address] Tammi Fleming Clarity (U) CLEAR Normal CLEAR [facility] Comment on above: Performed By: #### Angela CHRISTIE UMICRO #### [facility] [address] [place] [address] Dr. Tammi Fleming Color (U) LT. YELLOW Normal YELLOW [facility] Comment on above: Performed By: #### Angela CHRISTIE UMICRO #### [facility] [address] [place] [address] Dr. Tammi Fleming ERUAHD A micrscopic examina tion will be performed if indicated. Normal [facility] Comment on above: Performed By: #### Angela CHRISTIE UMICRO #### [facility] [address] [place] [address] Dr. Tammi Fleming Glucose Ql (U) Negative Normal NEGATIVE [facility] Comment on above: Performed By: #### Angela CHRISTIE UMICRO #### [facility] [address] [place] [address] Dr. Tammi Fleming Hemoglobin Ql (U) LARGE Abnormal NEGATIVE [facility] Comment on above: Performed By: #### Angela CHRISTIE UMICRO #### [facility] [address] [place] [address] Dr. Tammi Fleming Ketones Ql (U) Negative Normal NEGATIVE [facility] Comment on above: Performed By: #### Angela CHRISTIE UMICRO #### [facility] [address] [place] [address] Dr. Tammi Fleming LEUKOCYTES Negative Normal NEGATIVE [facility] Comment on above: Performed By: #### CIRILO SORTO #### [facility] [address] [place] [address] Dr. Tammi Fleming Nitrite Ql (U) Negative Normal NEGATIVE [facility] Comment on above: Performed By: #### NAGA SORTORO #### [facility] [address] [place] [address] Dr. Tammi Fleming pH (U) 7.0 [pH] Normal 5-9 [facility] Comment on above: Performed By: #### CIRILO SORTO #### [facility] [address] [place] [address] Dr. Tammi Fleming SPEC GRAVITY <=1.005 Abnormal 1.005-<=1.025 [facility] Comment on above: Performed By: #### NAGA SORTORO #### [facility] [address] [place] [address] Dr. Tammi Fleming UA PROTEIN Negative Normal NEGATIVE/ TRACE [facility] Comment on above: Performed By: #### CIRILO SORTO #### [facility] [address] [place] [address] Dr. Tammi Fleming UR MICRO IND INDICATED Normal [facility] Comment on above: Performed By: #### NAGA SORTORO #### [facility] [address] [place] [address] Dr. Tammi Fleming Urobilinogen Qn (U) 0.2 {Elder'U}/dL Normal 0.2 - 1.0 [facility] Comment on above: Performed By: #### NAGA SORTORO #### [facility] [address] [place] [address] Dr. Tammi Fleming PREG QUANT HCGon 01-04-2023 HCG QUANT 4523 mIU/mL Normal [facility] Comment on above: Performed By: #### P REGQNT #### [facility] [address] [place] [address] Dr. Tammi Fleming HCG RANGE SEE BELOW Normal [facility] Comment on above: Result Comment: 5-50 0.2-1 WEEK 50-500 1-2 WEEKS 100-5,000 2-3 WEEKS 500-10,000 3-4 WEEKS 1,000-50,000 4-5 WEEKS 10,000-100,000 5-6 WEEKS 15,000-200,000 6-8 WEEKS 10,000-100,000 2-3 MONTHS Performed By: #### P REGQNT #### [facility] [address] [place] [address] Dr. Tammi Fleming URINE MICROSCOPIC ONLYon BACTERIA TRACE Abnormal NONE SEEN [facility] Comment on above: Performed By: #### Angela CHRISTIE UMICRO #### [facility] [address] [place] [address] Dr. Tammi Fleming Bacteria identified Cx Nom (U) NOT INDICATED Normal [facility] Comment on above: Performed By: #### Angela CHRISTIE UMICRO #### [facility] [address] [place] [address] Dr. Tammi Fleming CAST NONE SEEN Normal NONE SEEN [facility] Comment on above: Performed By: #### Angela CHRISTIE UMICRO #### [facility] [address] [place] [address] Dr. Tammi Fleming Crystals LM Nom (Urine sed) NONE SEEN Normal NONE SEEN [facility] Comment on above: Performed By: #### Angela CHRISTIE UMICRO #### [facility] [address] [place] [address] Dr. Tammi Fleming Epithelial cells LM Ql (Urine sed) NONE SEEN Normal NONE SEEN /RARE [facility] Comment on above: Performed By: #### E RUR, UMICRO #### [facility] [address] [place] [address] Dr. Tammi Fleming MUCOUS NONE SEEN Normal NONE SEEN [facility] Comment on above: Performed By: #### E JENNIFERR, UMICRO #### [facility] [address] [place] [address] Dr. Tammi Fleming RBC 2-5 Abnormal 0-2 [facility] Comment on above: Performed By: #### E CIRILO CHRISTIE #### [facility] [address] [place], [place] [address] Dr. Tammi Fleming WBC NONE SEEN Normal NONE SEEN [facility] Comment on above: Performed By: #### E CIRILO CHRISTIE #### [facility] [address] [place], [place] [address] Dr. Tammi Fleming US PREG TVon 01-04-2023 [...] DEYVI FELDER Date: 2023-01-04 18:08 Normal [facility] BMPon 07-08-2020 Anion gap [Moles/Vol] 11 mmol/L 10 - 20 mmol/L [facility] Calcium [Mass/Vol] 9.5 mg/dL 8.4 - 10. 2 mg/dL [facility] Chloride [Moles/Vol] 109 mmol/L High 98 - 108 mmol/L [facility] Creatinine [Mass/Vol] 0.85 mg/dL 0.40 - 1.10 [facility] GFR/1.73 sq M predicted among non-blacks MDRD (S/P/Bld) [Vol rate/Area] The eGFR should be used for monitoring renal function only and not for medication dosing. [facility] GFR/1.73 sq M.predicted CKD-EPI (S/P/Bld) [Vol rate/Area] 96 >=60 mL/min/1.73 m2 [facility] Glucose [Mass/Vol] 95 mg/dL 65 - 99 mg/dL [facility] HCO3 [Moles/Vol] 23 mmol/L 21 - 32 mmol/L [facility] Interpretation and review of laboratory results Abnormal [facility] Potassium [Moles/Vol] 3.5 mmol/L 3.5 - 5.1 mmol/L [facility] Sodium [Moles/Vol] 139 mmol/L 135 - 145 mmol/L [facility] Urea nitrogen [Mass/Vol] 10 mg/dL 8 - 25 mg/dL [facility] Urea nitrogen/Creatinin e [Mass ratio] 11.8 mg/mg [facility] CBC WITH AUTO DIFFERENTIALon 07-08-2020 Basophils (Bld) [#/Vol] 0.02 10*3/uL [facility] Basophils/100 WBC (Bld) 0.2 % [facility] Eosinophils (Bld) [#/Vol] 0.04 10*3/uL [facility] Eosinophils/100 WBC (Bld) 0.5 % [facility] Erythrocyte distribution width (RBC) [Entitic vol] 12.0 % 11.6 - 14.8 % [facility] Hematocrit (Bld) [Volume fraction] 43.3 % 36 - 46 % [facility] Hemoglobin (Bld) [Mass/Vol] 14.7 g/dL 12 - 16 g/dL [facility] Immature granulocytes (Bld) [#/Vol] 0.00 10*3/uL [facility] Immature granulocytes/100 WBC (Bld) 0.00 % [facility] Comment on above: The IG parameter is the percentage of metamyelocytes, myelocytes and promyelocytes. An immature granulocyte count (IG) of 1% or more suggests the possibility of infection, an IG count of 3% is very likely related to an infection. Lymphocytes (Bld) [#/Vol] 2.44 10*3/uL [facility] Lymphocytes/100 WBC (Bld) 30.2 % [facility] MCH (RBC) [Entitic mass] 29.2 pg 26 - 34 pg [facility] MCHC (RBC) [Mass/Vol] 33.9 g/dL 31 - 37 g/dL [facility] MCV (RBC) [Entitic vol] 86.1 fL 80 - 100 fL [facility] Monocytes (Bld) [#/Vol] 0.40 10*3/uL [facility] Monocytes/100 WBC (Bld) 5.0 % [facility] Neutrophils (Bld) [#/Vol] 5.17 10*3/uL [facility] Neutrophils/100 WBC (Bld) 64.1 % [facility] Platelet mean volume (Bld) [Entitic vol] 11.8 fL 9.4 - 12.4 fL [facility] Platelets (Bld) [#/Vol] 228 10*3/uL [facility] RBC (Bld) [#/Vol] 5.03 10*6/uL [facility] WBC (Bld) [#/Vol] 8.07 10*3/uL [facility] ABDOMEN PELVIS WITH IV CO NTRAST [...] TueJul 08, 2020 3:59:53 PM EST Normal [facility] Comment on above: Order Comment: Injur [...] changes from recent appendectomy. Workstation ID: [id number] [facility] EXAMINATION: CT ABDO MEN PELVIS [...] No acute or aggressive osseous abnormality identified. [facility] 1. No acute infectio us, inflammatory or obstructive process identified in the abdomen or pelvis. 2. Postsurgical changes from recent appendectomy. Workstation ID: [id number] [facility] Hepatic Function Panel (LFT) on 07-08-2020 Albumin [Mass/Vol] 3.8 g/dL 3.2 - 5.2 g/dL [facility] ALP [Catalytic activity/Vol] 71 U/L 40 - 140 U/L [facility] ALT [Catalytic activity/Vol] 31 U/L 14 - 65 U/L [facility] AST [Catalytic activity/Vol] 18 U/L 0 - 45 U/L [facility] Bilirubin [Mass/Vol] 0.3 mg/dL 0 - 1.3 mg/dL [facility] Bilirubin.conjugat ed [Mass/Vol] mg/dL 0 - 0.4 mg/dL [facility] Protein [Mass/Vol] 7.9 g/dL 6 - 8 g/dL [facility] Lipaseon 07-08-2020 Lipase [Catalytic activity/Vol] 95 U/L 73 - 393 U/L [facility] Otheron 07-08-2020 Interpretation and review of laboratory results Normal [facility] Extra Tube Hold for add-ons. [facility] Comment on above: Auto resulted. URINALYSISon 07-08-2020 Bacteria Auto Ql (U) Rare Abnormal None Seen /hpf [facility] Bilirubin Ql (U) Negative Negative [facility] th Clarity Refractometry automated (U) Clear Clear [facility] Color (U) Yellow Colorless, Yellow [facility] Epithelial cells.squamous Auto (Urine sed) [#/Area] 1 [facility] Glucose Auto test strip (U) [Mass/Vol] Negative Negative mg/dL [facility] Hemoglobin Auto test strip Ql (U) Negative Negative [facility] Interpretation and review of laboratory results Abnormal [facility] Ketones (U) [Mass/Vol] Negative Negative mg/dL [facility] Leukocyte esterase Auto test strip Ql (U) Negative Negative [facility] Nitrite Auto test strip Ql (U) Negative Negative [facility] pH (U) 7.5 [pH] High [facility] Protein (U) [Mass/Vol] Negative Negative mg/dL [facility] Specific gravity (U) [Rel density] 1.020 [facility] Urobilinogen (U) [Mass/Vol] <2.0 <2.0 mg/dL [facility] Microscopic examinat ion is performed on all urinalysis samples and only positive findings are reported. The test for blood on the chemical analytic portion of urinalysis may also be positive due to hemoglobinuria and myoglobinuria and if red blood cells are present they are quantified by microscopic examination. [facility] Urine Pregnancyon 07-08-2020 HCG ( test) Ql (U) Negative Negative [facility] Interpretation and review of laboratory results Normal [facility] CBC WITH AUTO DIFFERENTIALon 06-23-2020 Basophils (Bld) [#/Vol] 0.00 10*3/uL [facility] Basophils/100 WBC (Bld) 0.0 % [facility] Eosinophils (Bld) [#/Vol] 0.00 10*3/uL [facility] Eosinophils/100 WBC (Bld) 0.0 % [facility] Erythrocyte distribution width (RBC) [Entitic vol] 12.2 % 11.6 - 14.8 % [facility] Hematocrit (Bld) [Volume fraction] 37.2 % 36 - 46 % [facility] Hemoglobin (Bld) [Mass/Vol] 12.6 g/dL 12 - 16 g/dL [facility] Immature granulocytes (Bld) [#/Vol] 0.01 10*3/uL [facility] Immature granulocytes/100 WBC (Bld) 0.10 % [facility] Comment on above: The IG parameter is the percentage of metamyelocytes, myelocytes and promyelocytes. An immature granulocyte count (IG) of 1% or more suggests the possibility of infection, an IG count of 3% is very likely related to an infection. Interpretation and review of laboratory results Abnormal [facility] Lymphocytes (Bld) [#/Vol] 0.82 10*3/uL Low [facility] Lymphocytes/100 WBC (Bld) 6.8 % [facility] MCH (RBC) [Entitic mass] 29.3 pg 26 - 34 pg [facility] MCHC (RBC) [Mass/Vol] 33.9 g/dL 31 - 37 g/dL [facility] MCV (RBC) [Entitic vol] 86.5 fL 80 - 100 fL [facility] Monocytes (Bld) [#/Vol] 0.31 10*3/uL [facility] Monocytes/100 WBC (Bld) 2.6 % [facility] Neutrophils (Bld) [#/Vol] 10.86 10*3/uL High [facility] Neutrophils/100 WBC (Bld) 90.5 % [facility] Platelet mean volume (Bld) [Entitic vol] 12.1 fL 9.4 - 12.4 fL [facility] Platelets (Bld) [#/Vol] 197 10*3/uL [facility] RBC (Bld) [#/Vol] 4.30 10*6/uL [facility] WBC (Bld) [#/Vol] 12.00 10*3/uL [facility] CBC WITH AUTO DIFFERENTIALon 06-22-2020 Basophils (Bld) [#/Vol] 0.02 10*3/uL [facility] Basophils/100 WBC (Bld) 0.1 % [facility] Eosinophils (Bld) [#/Vol] 0.00 10*3/uL [facility] Eosinophils/100 WBC (Bld) 0.0 % [facility] Erythrocyte distribution width (RBC) [Entitic vol] 12.0 % 11.6 - 14.8 % [facility] Hematocrit (Bld) [Volume fraction] 40.2 % 36 - 46 % [facility] Hemoglobin (Bld) [Mass/Vol] 14.0 g/dL 12 - 16 g/dL [facility] Immature granulocytes (Bld) [#/Vol] 0.02 10*3/uL [facility] Immature granulocytes/100 WBC (Bld) 0.10 % [facility] Comment on above: The IG parameter is the percentage of metamyelocytes, myelocytes and promyelocytes. An immature granulocyte count (IG) of 1% or more suggests the possibility of infection, an IG count of 3% is very likely related to an infection. Interpretation and review of laboratory results Abnormal [facility] Lymphocytes (Bld) [#/Vol] 1.20 10*3/uL [facility] Lymphocytes/100 WBC (Bld) 5.9 % [facility] MCH (RBC) [Entitic mass] 29.4 pg 26 - 34 pg [facility] MCHC (RBC) [Mass/Vol] 34.8 g/dL 31 - 37 g/dL [facility] MCV (RBC) [Entitic vol] 84.5 fL 80 - 100 fL [facility] Monocytes (Bld) [#/Vol] 0.67 10*3/uL [facility] Monocytes/100 WBC (Bld) 3.3 % [facility] Neutrophils (Bld) [#/Vol] 18.51 10*3/uL High [facility] Neutrophils/100 WBC (Bld) 90.6 % [facility] Platelet mean volume (Bld) [Entitic vol] 11.7 fL 9.4 - 12.4 fL [facility] Platelets (Bld) [#/Vol] 223 10*3/uL [facility] RBC (Bld) [#/Vol] 4.76 10*6/uL [facility] WBC (Bld) [#/Vol] 20.42 10*3/uL High [facility] COVID-19, MOLECULARon 2019 SARS-COV-2 (BERG ID) Not Detected Normal Not Detected [facility] Comment on above: Result Comment: This [...] at the following links: For Healthcare Providers: https://www.fda.gov/media/006231/download For Patients: https://www.fda.gov/media/914601/download Performed By: #### L [id number] #### [facility] [address] [address] Kenneth Arrieta M.D. [id number] COVID-19, Molecularon 2019 Interpretation and review of laboratory results Normal [facility] SARS-CoV-2 Not Detected Not Detected [facility] Comment on above: This test [...] at the following links: For Healthcare Providers: https://www.fda.gov/media/624624/download For Patients: https://www.fda.gov/media/944609/download CT ABDOMEN PELVIS WITH IV CO NTRAST [...] seen directed medially within the central anterior rml-yv-bobes pelvis. No bowel obstruction. Some physiologic free [...] is directed medially within the central anterior qnc-ra-xrabj pelvis with no bowel obstruction. 3. Some [...] TueJun 22, 2020 8:48:07 PM EST Normal [facility] Comment on above: Order Comment: Injur [...] seen directed medially within the central anterior ghr-fm-ywilw pelvis. No bowel obstruction. Some physiologic free [...] is directed medially within the central anterior lbj-gb-pibmj pelvis with no bowel obstruction. 3. Some physiologic free fluid in the cul-de-sac. Some small follicles seen in the ovaries bilaterally. Results were called by Dr. Clifford Wilson to Dr. ANDREY VALDEZ on 06/22/2020 at 16:43. SHINT/adrianna Workstation ID: [id number] [facility] 1. Acute appendiciti s. The appendix is seen just anterior to the right common iliac artery and is distended approaching 9 mm with wall enhancement and surrounding fatty stranding. 2. Moderate amount of fecal matter in the proximal colon. The cecum is directed medially within the central anterior lol-ib-dyudw pelvis with no bowel obstruction. 3. Some physiologic free fluid in the cul-de-sac. Some small follicles seen in the ovaries bilaterally. Results were called by Dr. Clifford Wilson to Dr. ANDREY VALDEZ on 06/22/2020 at 16:43. GJT/dnb Workstation ID: [id number] [facility] EXAMINATION: CT ABDO MEN PELVIS [...] seen directed medially within the central anterior [id number] pelvis. No bowel obstruction. Some physiologic free fluid in the cul-de-sac. Some follicles seen in the ovaries bilaterally. The uterus and urinary bladder unremarkable. No acute osseous abnormality. [facility] Comprehensive Metabolic Pane kendra 06-22-2020 Albumin [Mass/Vol] 4.0 g/dL 3.2 - 5.2 g/dL [facility] ALP [Catalytic activity/Vol] 63 U/L 40 - 140 U/L [facility] ALT [Catalytic activity/Vol] 27 U/L 14 - 65 U/L [facility] Anion gap [Moles/Vol] 10 mmol/L 10 - 20 mmol/L [facility] AST [Catalytic activity/Vol] 18 U/L 0 - 45 U/L [facility] Bilirubin [Mass/Vol] 0.5 mg/dL 0 - 1.3 mg/dL [facility] Calcium [Mass/Vol] 9.1 mg/dL 8.4 - 10. 2 mg/dL [facility] Chloride [Moles/Vol] 109 mmol/L High 98 - 108 mmol/L [facility] Creatinine [Mass/Vol] 0.83 mg/dL 0.40 - 1.10 [facility] GFR/1.73 sq M predicted among non-blacks MDRD (S/P/Bld) [Vol rate/Area] The eGFR should be used for monitoring renal function only and not for medication dosing. [facility] GFR/1.73 sq M.predicted CKD-EPI (S/P/Bld) [Vol rate/Area] 98 >=60 mL/min/1.73 m2 [facility] Glucose [Mass/Vol] 96 mg/dL 65 - 99 mg/dL [facility] HCO3 [Moles/Vol] 25 mmol/L 21 - 32 mmol/L [facility] Potassium [Moles/Vol] 3.7 mmol/L 3.5 - 5.1 mmol/L [facility] Protein [Mass/Vol] 7.8 g/dL 6 - 8 g/dL [facility] Sodium [Moles/Vol] 140 mmol/L 135 - 145 mmol/L [facility] Urea nitrogen [Mass/Vol] 10 mg/dL 8 - 25 mg/dL [facility] Urea nitrogen/Creatinin e [Mass ratio] 12.0 mg/mg [facility] ECG 12-LEADon 06-22-2020 Andrey Valdez MD 2019 4:57 PM ECG 12 Lead Date/Time: 06/22/2020 4:51 PM Performed by: Andrey Valdez MD Authorized by: Andrey Valdez MD Interpreted by ED attending physician Comparison: not compared with previous ECG Rhythm: sinus rhythm BPM: 85 TX Interval: 108 QRS Interval: 82 QT Interval: 426 Clinical impression: non-specific ECG [facility] Lipaseon 06-22-2020 Lipase [Catalytic activity/Vol] 72 U/L Low 73 - 393 U/L [facility] Otheron 06-22-2020 Interpretation and review of laboratory results Abnormal [facility] URINALYSISon 06-22-2020 Bacteria Auto Ql (U) Few Abnormal None Seen /hpf [facility] Bilirubin Ql (U) Negative Negative [facility] th Clarity Refractometry automated (U) Cloudy Abnormal Clear [facility] Color (U) Yellow Colorless, Yellow [facility] Epithelial cells.squamous Auto (Urine sed) [#/Area] 3 [facility] Glucose Auto test strip (U) [Mass/Vol] Negative Negative mg/dL [facility] Hemoglobin Auto test strip Ql (U) Negative Negative [facility] Interpretation and review of laboratory results Abnormal [facility] Ketones (U) [Mass/Vol] 20 Abnormal Negative mg/dL [facility] Leukocyte esterase Auto test strip Ql (U) Negative Negative [facility] Nitrite Auto test strip Ql (U) Negative Negative [facility] pH (U) 7.0 [pH] [facility] Protein (U) [Mass/Vol] Negative Negative mg/dL [facility] Specific gravity (U) [Rel density] 1.020 [facility] Urobilinogen (U) [Mass/Vol] <2.0 <2.0 mg/dL [facility] WBC Auto (Urine sed) [#/Area] 2 [facility] Microscopic examinat ion is performed on all urinalysis samples and only positive findings are reported. The test for blood on the chemical analytic portion of urinalysis may also be positive due to hemoglobinuria and myoglobinuria and if red blood cells are present they are quantified by microscopic examination. [facility] Urine Pregnancyon 06-22-2020 HCG ( test) Ql (U) Negative Negative [facility] Interpretation and review of laboratory results Normal [facility] Vital Signs Date Time Vital Sign Value Performing Clinician Faci lity 07-08-2020 15:34-0500 BP Diastolic 79 mm[Hg] [facility] 07-08-2020 15:34-0500 BP Systolic 125 mm[Hg] [facility] 07-08-2020 15:34-0500 Pulse (Heart Rate) 81 /min [facility] 07-08-2020 15:34-0500 Pulse Oximetry 99 % [facility] 07-08-2020 15:34-0500 Respiratory Rate 16 /min [facility] 07-08-2020 13:50-0500 BMI (Body Mass Index) 20.36 kg/m2 [facility] 07-08-2020 13:50-0500 Body Temperature 98.49 [degF] Kate [facility] 07-08-2020 13:50-0500 Body weight 58.97 kg Kate [facility] 07-08-2020 13:50-0500 Height 170.2 cm Kate [facility] 06-23-2020 07:35-0500 Body Temperature 98.01 [degF] Andrey [facility] 06-23-2020 07:35-0500 BP Diastolic 68 mm[Hg] [facility] 06-23-2020 07:35-0500 BP Systolic 106 mm[Hg] [facility] 06-23-2020 07:35-0500 Pulse (Heart Rate) 75 /min [facility] 06-23-2020 07:35-0500 Pulse Oximetry 94 % [facility] 06-23-2020 07:35-0500 Respiratory Rate 16 /min [facility] 06-22-2020 14:15-0500 BMI (Body Mass Index) 20.36 kg/m2 [facility] 06-22-2020 14:15-0500 Body weight 58.97 kg [facility] 06-22-2020 14:15-0500 Height 170.2 cm [facility] Encounters Encounter Date Encounter Type [...] End: 07-08-2020 Emergency department patient visit PHYSICIAN [facility] Start: 07-08-2020 End: 07-08-2020 Emergency department patient visit Kate Mendoza Work Phone: [facility] Emergency Department Comment on above: Abdominal pain, unsp ecified abdominal location (Primary Dx) Start: 06-22-2020 End: 06-23-2020 Patient encounter procedure PHYSICIAN [facility] Start: 06-22-2020 End: 06-23-2020 Emergency department patient visit Andrey Valdez Work Phone: [facility] Med Surg Comment on above: Acute appendicitis w ith localized peritonitis, without perforation, abscess, or gangrene (Primary Dx) Procedures Date Procedure Procedure Detail Performing Clinician Start: 07-08-2020 Ct abdomen & pelvis w/contrast material Kate Eva [facility] Work Phone: Start: 07-08-2020 Basic metabolic 2000 panel - Serum or Plasma Kate Eva [facility] Work Phone: Start: 07-08-2020 Choriogonadotropin ( test) [Presence] in Urine Katejalen Velasquez [facility] Work Phone: Start: 07-08-2020 Complete blood count with white cell differential, automated [employer] [facility] Work Phone: Start: 07-08-2020 Complete blood count with white cell differential, manual [employer] [facility] Work Phone: Start: 07-08-2020 Hepatic function 2000 panel - Serum or Plasma [employer] [facility] Work Phone: Start: 07-08-2020 LIGHT BLUE TOP [employer] [facility] Work Phone: Start: 07-08-2020 LIGHT GREEN TOP [...] Work Phone: Start: 06-22-2020 12 lead ECG [facility] Work Phone: Start: 06-22-2020 Ct abdomen & pelvis w/contrast material Andrey Wu Work Phone: Start: 06-22-2020 Complete blood count with white cell differential, automated Andrey Valdez Work Phone: Start: 06-22-2020 Complete blood count with white cell differential, manual Andrey Valdez Work Phone: Start: 06-22-2020 Comprehensive metabolic 2000 panel - Serum or Plasma [employer] [facility] Work Phone: Start: 06-22-2020 Lipase [Enzymatic activity/volume] in Serum or Plasma Andrey Wu Work Phone: Start: 06-22-2020 Choriogonadotropin ( test) [Presence] in Urine Andrey Valdez Work Phone: Start: 06-22-2020 Urinalysis [facility] Valdez Work Phone: Plan of Treatment Date Care Activity Detail Author Start: 04-22-2020 Influenza vaccination given Se quential Influenza Vaccine (#1) [facility] Start: 2012 Hepatitis C antibody , confirmatory test Hepatitis C Screening [facility] Start: 2009 HIV screening HIV Screening [facility] Start: 2006 Adolescent depressio n screening assessment Depression Screening (PHQ9) [facility] Start: 2005 Vaccination for tri n papillomavirus HPV Vaccines (1 - 2-dose series) [facility] Start: 1997 History and physical examination, annual for health maintenance Wellness Visit [facility] Start: 1994 Screening for malign ant neoplasm of cervix Pap Smear [facility] Start: 1994 Tetanus vaccination Tetanus: Every 1 0yrs [facility] Procedure on tissue specimen Tis kyara Exam Pathology and Cytology STAT Release Upon Ordering for 1 Occurrences starting 06/22/2020 [facility] Comment on above: Release Upon Orderin g for 1 Occurrences starting 06/22/2020 Payers Date Payer Category Payer Unknown [employer] PPO [id number] 2019-Present [id number] 2019 Unknown [id number] 1994 Unknown [id number] 1994 Unknown [id number] 1994 Unknown [id number] [id number] 1994 Unknown [id number] [id number] 1994 Unknown [id number] 2.16.840.1.945655.3.579.2.593 1994 Unknown [id number] 2.16.840.1.541596.3.579.2.593 1994 Unknown [id number] [id number] 1994 Unknown [id number] 2.16.840.1.260921.3.579.2.1258 1994 Unknown [id number] 2.16.840.1.954719.3.579.2.1258 1994 Unknown [id number] 2.16.840.1.918486.3.579.2.1258 1994 Unknown [id number] 2.16.840.1.036092.3.579.2.1258 1994 Unknown [id number] 2.16.840.1.195112.3.579.2.1258 1994 Unknown [id number] 2.16.840.1.271140.3.579.2.1258 1994 Unknown [id number] [id number] 1994 Unknown [id number] [id number] 1959 Unknown [id number] Social History Date Type Detail Facility Start: 06-23-2020 End: 07-08-2020 Tobacco smoking status KYIS Never smoker [facility] Start: 06-23-2020 End: 07-08-2020 Tobacco use and exposure Never used [facility] Start: 06-23-2020 End: 07-08-2020 Alcohol intake Ex-drinker (finding) [facility] Sex Assigned At Not on file [facility] Exposure to SARS-CoV-2 (event) Not sure [facility] Discharge Instructions * Instructions* Magdi Salazar MD - 06/23/[address] Salazar (Hernia Repair/Gallbladder) [phone] No Lifting, no bending, no pushing May [...] A MEDICAL NATURE, CALL YOUR DOCTOR/EMERGENCY ROOM. [facility] EMERGENCY ROOM [phone] Make a follow-up appointment with your surgeon. Post Operative Instructions Dr Salazar (Hernia Repair/Gallbladder) [phone] No Lifting, no bending, no pushing May [...] A MEDICAL NATURE, CALL YOUR DOCTOR/EMERGENCY ROOM. [facility] EMERGENCY ROOM [phone] Make a follow-up appointment with your surgeon. documented in this encounter* Attachments The following attachments cannot be sent through Care Everywhere. * Abdominal Pain (Spanish) documented in this encounter Assessments Diagnosis Acute appendicitis with localized peritonitis, without perforation, abscess, or gangrene- Primary Diagnosis Abdominal pain, unspecified abdominal location- Primary Advance Directives No Advanced Directives Records FoundDocuments on File Type Date Recorded Patient It Help Desk Analyst Expl anation Advance Directives and Livin g Will 06/22/2020 1:08 PM Documents on File Type Date Recorded Patient It Help Desk Analyst Expl anation Advance Directives and Livin [...] ion and content) Patient's name Mele Doll, [facility] #[id number] Age [age] years old date of 1995 [...] ED Notes (unrecognized secti on and content) [facility] ED Attending Note: NAME: Mele Doll 24 y.o. CSN: [id number] PCP: Physician No History: Chief Complaint: Abdominal [...] file Gets together: Not on file Attends congregation service: Not on file Active member of [...] Procedure Abnormality Status --------- ------ CBC Auto Differential[[id number]] Abnormal Final result Please view results for [...] a case request, and contact the nurse aix administrator director of recreation therapy. Patient is to be kept n.p.o. He would like 3.375 of Zosyn given to the patient. He would like the patient admitted to his service. Clinical Impression: 1. Acute appendicitis with localized peritonitis, without perforation, abscess, or gangrene Disposition: hospitalize to Operating Room Andrey Valdez M.D. Attending Physician [facility] Emergency Departments 06/22/2020 Portions of this [...] and stable at dc. ED PROVIDER NOTE [facility] EMERGENCY DEPARTMENT NAME: Mele Doll AGE: 24 y.o. : 1995 VISIT DATE: 07/08/2020 CSN: [id number] PCP: Physician No Chief Complaint Patient presents [...] file Gets together: Not on file Attends congregation service: Not on file Active member of [...] Colorless, Yellow Clarity, Urine Clear Clear Specific [place] 1.020 1.005 - 1.025 pH, Urine 7.5 [...] Salazar MD. Specialty: General Surgery [facility] [address] Contact information for after-discharge care Follow-up information [...] change in drainage on op-sites. MELE DOLL [facility] [id number] [facility] [id number] 1995 DATE 06/22/2020 OPERATIVE REPORT SURGEON MAGDI [...] utilizing 0 Ethibond with an open technique. Bwajla-xm-[id number] suture was placed after complete desufflation of [...] appendicitis. MAGDI SALAZAR MD D 06/22/2020 20:33 [id number] T 06/23/2020 01:38 VMT/MODL Umbilical dressing saturated with light pink serous drainage.Pubic dressing 1/2 saturated with shadow of pink drainage. Brief Post Operative Note Patient Name: Mele Doll : 1995 (24 y.o.) Date of Service: 06/22/2020 CSN: [id number] Procedure(s): APPENDECTOMY LAPAROSCOPIC Pre-Operative Diagnoses: RIGHT SIDED ABDOMINAL PAIN - ACUTE APPENDICITIS Post-Operative Diagnoses: ACUTE RETROCECAL APPENDICITIS Surgeon(s) and Role: * Magdi Salazar MD - Primary Anesthesiologist: Jaylin Buckley MD Deputy Prosecuting Attorney: Tanisha Varghese RN Scrub Person Assist: Jadyn [...] Performed by: Andrey Valdez MD Authorized by: Adnrey Valdez MD Interpreted by ED attending physician Comparison: not compared with previous ECG Rhythm: sinus rhythm BPM: 85 TX Interval: 108 QRS Interval: 82 QT Interval: 426 Clinical impression: non-specific ECG documented in this encounter INFORMATION SOURCE (unrecogn ized section and content) DATE CREATED AUTHOR 07/13/2020 [facility] DATE CREATED AUTHOR AUTHOR'S ORGANIZ ATION 01/28/2023 [facility] DATE CREATED AUTHOR AUTHOR'S ORGANIZ ATION 04/24/2024 [facility] EPIC FOR RECORDS PERTAINING TO PATIENTS [...] BE BASED ON THE PRIMARY CLINICAL RECORDS. [employer] provides no warranty or guarantee of the accuracy or completeness of information in this document.
--- NOTE | 2024-04-26 13:07 | US_ITS ---
[address] [address] Patient Name: MELE DOLL MRN: [id number] date: 1995 Sex: F Assigned Patient Location: [facility] Current Patient Location: Accession/Order Number: [id number] Exam Date: 04/26/2024 13:12 Report Date: 04/27/2024 04:22 At the request of: ELLEN COLIN Procedure: US OB BPP w non-stress EXAMINATION: US OB BPP w non-stress HISTORY:THIRD TRIMESTER Z34.93 COMPARISON: Ultrasound OB biophysical 04/25/2024 TECHNIQUE: Ultrasound biophysical profile was performed in the radiology department. BREATHING MOVEMENTS: 2 GROSS BODY MOVEMENTS: 2 TONE: 2 QUALITATIVE AMNIOTIC FLUID VOLUME: 2 PRESENTATION: Cephalic HEART RATE: 147 bpm AMNIOTIC FLUID VOLUME: 14.7 cm; normal range GESTATIONAL AGE: 34 weeks 3 days US/US OB BPP w non-stress IMPRESSION: Total biophysical profile score: 8 Electronically authenticated by: EMERSON DOUGLASS Date: 04/27/2024 04:22
--- NOTE | 2024-04-26 13:08 | US_ITS ---
[place] [id number] Patient Name: MELE DOLL MRN: [id number] date: 1995 Sex: F Assigned Patient Location: [facility] Current Patient Location: [facility] Accession/Order Number: [id number] Exam Date: 04/26/2024 13:12 Report Date: 04/27/2024 04:24 At the request of: ELLEN COLIN Procedure: US OB umbilical artery EXAMINATION: US OB umbilical artery HISTORY: THIRD TRIMESTER Z34.93 COMPARISON: ULTRASOUND OB GROWTH 04/25/2024 TECHNIQUE: Duplex Doppler evaluation of the umbilical arteries. FINDINGS: HEART RATE: 147 bpm UMBILICAL ARTERIES: 2 GESTATIONAL AGE: 34 weeks 3 days WAVEFORM: Normal upstroke. No notching. Forward flow in diastole. PEAK SYSTOLIC VELOCITY: 109 cm/s END DIASTOLIC VELOCITY: 46 cm/s SYST/DIAST RATIO (S:D): 2.4 RESISTIVE INDEX: 0.57 US/US OB umbilical artery IMPRESSION: 1. Class 0 = Normal umbilical artery blood velocity Electronically authenticated by: EMERSON DOUGLASS Date: 04/27/2024 04:24
[2024-04-26 13:45] VITALS: BP 122/75; PULSE 121
== END 2024-04-26 14:07 | disposition home or self-care (01) ==
LOC: FBCO 07:07 → FBC 13:04
PROVIDERS: PCP Obstetrics & Gynecology; Visit Provider Obstetrics & Gynecology
DX: Z34.93 Encounter for supervision of normal pregnancy, unspecified, third trimester (principal); Z3A.34 34 weeks gestation of pregnancy
CPT/HCPCS: 76818; 76820

== ENCOUNTER 2024-04-30 07:06 | Outpatient (OUT) | payer BC, SELFPAY ==
--- OUTSIDE RECORDS SUMMARY | 2024-04-30 07:09 | XMS_ITS | CCD ---
Author Organization [facility] Care Team Providers Care Custom Shoemaker Name Role Phone No, Physician Primary Care [...] HCGon 01-19-2023 HCG QUANT 67 mIU/mL Normal [facility] Comment on above: Performed By: #### P REGQNT #### [facility] [address] [place] [address] Dr. Tammi Fleming HCG RANGE SEE BELOW Normal [facility] Comment on above: Result Comment: 5-50 0.2-1 WEEK 50-500 1-2 WEEKS 100-5,000 2-3 WEEKS 500-10,000 3-4 WEEKS 1,000-50,000 4-5 WEEKS 10,000-100,000 5-6 WEEKS 15,000-200,000 6-8 WEEKS 10,000-100,000 2-3 MONTHS Performed By: #### P REGQNT #### [facility] [address] [place] [address] Dr. Tammi Fleming PREG QUANT HCGon 01-10-2023 HCG QUANT 231 mIU/mL Normal [facility] Comment on above: Performed By: #### P REGQNT #### [facility] [address] [place] [address] Dr. Tammi Fleming HCG RANGE SEE BELOW Normal [facility] Comment on above: Result Comment: 5-50 0.2-1 WEEK 50-500 1-2 WEEKS 100-5,000 2-3 WEEKS 500-10,000 3-4 WEEKS 1,000-50,000 4-5 WEEKS 10,000-100,000 5-6 WEEKS 15,000-200,000 6-8 WEEKS 10,000-100,000 2-3 MONTHS Performed By: #### P REGQNT #### [facility] [address] [place] [address] Dr. Tammi Fleming CBC AUTO DIFFon 01-04-2023 BASO # 0.0 103/ul Normal 0.0-0.1 [facility] Comment on above: Performed By: #### C BC #### [facility] [address] [place] [address] Dr. Tammi Fleming Basophils/100 WBC (Bld) 0.3 % Normal 0.2-2.0 [facility] Comment on above: Performed By: #### C BC #### [facility] [address] [place] [address] Dr. Tammi Fleming EO # 0.1 103/ul Normal 0.0-0.7 [facility] Comment on above: Performed By: #### C BC #### [facility] [address] [place] [address] Dr. Tammi Fleming Eosinophils/100 WBC (Bld) 0.8 % Critically low 0.9-7.0 [facility] Comment on above: Performed By: #### C BC #### [facility] [address] [place] [address] Dr. Tammi Fleming Erythrocyte distribution width (RBC) [Ratio] 12.0 % Normal 11.0-15.0 [facility] Comment on above: Performed By: #### C BC #### [facility] [address] [place] [address] Dr. Tammi Fleming Hematocrit (Bld) [Volume fraction] 42.6 % Normal 36.0-48.0 [facility] Comment on above: Performed By: #### C BC #### [facility] [address] [place] [address] Dr. Tammi Fleming Hemoglobin (Bld) [Mass/Vol] 14.5 g/dL Normal 12.0-16.0 [facility] Comment on above: Performed By: #### C BC #### [facility] [address] [place] [address] Dr. Tammi Fleming IG # 0.02 10e3/ul Normal 0.00-0.03 [facility] Comment on above: Performed By: #### C BC #### [facility] [address] [place] [address] Dr. Tammi Fleming IG % 0.3 % Normal 0.0-0.5 [facility] Comment on above: Performed By: #### C BC #### [facility] [address] [place] [address] Dr. Tammi Fleming LYMPH # 1.6 103/ul Normal 1.2-3.8 [facility] Comment on above: Performed By: #### C BC #### [facility] [address] [place] [address] Dr. Tammi Fleming Lymphocytes/100 WBC (Bld) 19.9 % Critically low 20.5-60.0 [facility] Comment on above: Performed By: #### C BC #### [facility] [address] [place] [address] Dr. Tammi Fleming MANUAL DIFF REQ NO Normal [facility] Comment on above: Performed By: #### C BC #### [facility] [address] [place] [address] Dr. Tammi Fleming MCH (RBC) [Entitic mass] 29.8 pg Normal 26.7-34.0 [facility] Comment on above: Performed By: #### C BC #### [facility] [address] [place] [address] Dr. Tammi Fleming MCHC (RBC) [Mass/Vol] 34.0 g/dL Normal 29.9-35.2 [facility] Comment on above: Performed By: #### C BC #### [facility] [address] [place] [address] Dr. Tammi Fleming MCV (RBC) [Entitic vol] 87.7 fL Normal 81.0-99.0 [facility] Comment on above: Performed By: #### C BC #### [facility] [address] [place] [address] Dr. Tammi Fleming MONO # 0.4 103/ul Normal 0.3-0.8 [facility] Comment on above: Performed By: #### C BC #### [facility] [address] [place] [address] Dr. Tammi Fleming Monocytes/100 WBC (Bld) 5.0 % Normal 1.7-12.0 [facility] Comment on above: Performed By: #### C BC #### [facility] [address] [place] [address] Dr. Tammi Fleming NEUT # 5.8 103/ul Normal 1.4-6.5 [facility] Comment on above: Performed By: #### C BC #### [facility] [address] [place] [address] Dr. Tammi Fleming Neutrophils/100 WBC (Bld) 73.7 % Normal 43.0-75.0 [facility] Comment on above: Performed By: #### C BC #### [facility] [address] [place] [address] Dr. Tammi Fleming Platelet mean volume (Bld) [Entitic vol] 12.1 fL Normal 9.5-13.5 [facility] Comment on above: Performed By: #### C BC #### [facility] [address] [place] [address] Dr. Tammi Fleming PLT 184 103/ul Normal 150-450 [facility] Comment on above: Performed By: #### C BC #### [facility] [address] [place] [address] Dr. Tammi Fleming RBC 4.86 106/ul Normal 4.20-5.40 [facility] Comment on above: Performed By: #### C BC #### [facility] [address] [address] [address] Tammi Fleming WBC 7.9 103/ul Normal 4.0-11.0 [facility] Comment on above: Performed By: #### C BC #### [facility] [address] [address] [address] Tammi Fleming ER URINE PROFILEon 3 Bilirubin Ql (U) Negative Normal NEGATIVE [facility] Comment on above: Performed By: #### Angela CHRISTIE UMICRO #### [facility] [address] [address] [address] Tammi Fleming Clarity (U) CLEAR Normal CLEAR [facility] Comment on above: Performed By: #### Angela CHRISTIE UMICRO #### [facility] [address] [place] [address] Dr. Tammi Fleming Color (U) LT. YELLOW Normal YELLOW [facility] Comment on above: Performed By: #### Angela CHRISTIE UMICRO #### [facility] [address] [place] [address] Dr. Tammi Fleming ERUAHD A micrscopic examina tion will be performed if indicated. Normal [facility] Comment on above: Performed By: #### Angela CHRISTIE UMICRO #### [facility] [address] [place] [address] Dr. Tammi Fleming Glucose Ql (U) Negative Normal NEGATIVE [facility] Comment on above: Performed By: #### Angela CHRISTIE UMICRO #### [facility] [address] [place] [address] Dr. Tammi Fleming Hemoglobin Ql (U) LARGE Abnormal NEGATIVE [facility] Comment on above: Performed By: #### Angela CHRISTIE UMICRO #### [facility] [address] [place] [address] Dr. Tammi Fleming Ketones Ql (U) Negative Normal NEGATIVE [facility] Comment on above: Performed By: #### Angela CHRISTIE UMICRO #### [facility] [address] [place] [address] Dr. Tammi Fleming LEUKOCYTES Negative Normal NEGATIVE [facility] Comment on above: Performed By: #### CIRILO SORTO #### [facility] [address] [place] [address] Dr. Tammi Fleming Nitrite Ql (U) Negative Normal NEGATIVE [facility] Comment on above: Performed By: #### NAGA SORTORO #### [facility] [address] [place] [address] Dr. Tammi Fleming pH (U) 7.0 [pH] Normal 5-9 [facility] Comment on above: Performed By: #### CIRILO SORTO #### [facility] [address] [place] [address] Dr. Tammi Fleming SPEC GRAVITY <=1.005 Abnormal 1.005-<=1.025 [facility] Comment on above: Performed By: #### NAGA SORTORO #### [facility] [address] [place] [address] Dr. Tammi Fleming UA PROTEIN Negative Normal NEGATIVE/ TRACE [facility] Comment on above: Performed By: #### CIRILO SORTO #### [facility] [address] [place] [address] Dr. Tammi Fleming UR MICRO IND INDICATED Normal [facility] Comment on above: Performed By: #### NAGA SORTORO #### [facility] [address] [place] [address] Dr. Tammi Fleming Urobilinogen Qn (U) 0.2 {Elder'U}/dL Normal 0.2 - 1.0 [facility] Comment on above: Performed By: #### NAGA SORTORO #### [facility] [address] [place] [address] Dr. Tammi Fleming PREG QUANT HCGon 01-04-2023 HCG QUANT 4523 mIU/mL Normal [facility] Comment on above: Performed By: #### P REGQNT #### [facility] [address] [place] [address] Dr. Tammi Fleming HCG RANGE SEE BELOW Normal [facility] Comment on above: Result Comment: 5-50 0.2-1 WEEK 50-500 1-2 WEEKS 100-5,000 2-3 WEEKS 500-10,000 3-4 WEEKS 1,000-50,000 4-5 WEEKS 10,000-100,000 5-6 WEEKS 15,000-200,000 6-8 WEEKS 10,000-100,000 2-3 MONTHS Performed By: #### P REGQNT #### [facility] [address] [place] [address] Dr. Tammi Fleming URINE MICROSCOPIC ONLYon BACTERIA TRACE Abnormal NONE SEEN [facility] Comment on above: Performed By: #### Angela CHRISTIE UMICRO #### [facility] [address] [place] [address] Dr. Tammi Fleming Bacteria identified Cx Nom (U) NOT INDICATED Normal [facility] Comment on above: Performed By: #### Angela CHRISTIE UMICRO #### [facility] [address] [place] [address] Dr. Tammi Fleming CAST NONE SEEN Normal NONE SEEN [facility] Comment on above: Performed By: #### Angela CHRISTIE UMICRO #### [facility] [address] [place] [address] Dr. Tammi Fleming Crystals LM Nom (Urine sed) NONE SEEN Normal NONE SEEN [facility] Comment on above: Performed By: #### Angela CHRISTIE UMICRO #### [facility] [address] [place] [address] Dr. Tammi Fleming Epithelial cells LM Ql (Urine sed) NONE SEEN Normal NONE SEEN /RARE [facility] Comment on above: Performed By: #### E RUR, UMICRO #### [facility] [address] [place] [address] Dr. Tammi Fleming MUCOUS NONE SEEN Normal NONE SEEN [facility] Comment on above: Performed By: #### E JENNIFERR, UMICRO #### [facility] [address] [place] [address] Dr. Tammi Fleming RBC 2-5 Abnormal 0-2 [facility] Comment on above: Performed By: #### E CIRILO CHRISTIE #### [facility] [address] [place], [place] [address] Dr. Tammi Fleming WBC NONE SEEN Normal NONE SEEN [facility] Comment on above: Performed By: #### E CIRILO CHRISTIE #### [facility] [address] [place], [place] [address] Dr. Tammi Fleming US PREG TVon 01-04-2023 [...] DEYVI FELDER Date: 2023-01-04 18:08 Normal [facility] BMPon 07-08-2020 Anion gap [Moles/Vol] 11 mmol/L 10 - 20 mmol/L [facility] Calcium [Mass/Vol] 9.5 mg/dL 8.4 - 10. 2 mg/dL [facility] Chloride [Moles/Vol] 109 mmol/L High 98 - 108 mmol/L [facility] Creatinine [Mass/Vol] 0.85 mg/dL 0.40 - 1.10 [facility] GFR/1.73 sq M predicted among non-blacks MDRD (S/P/Bld) [Vol rate/Area] The eGFR should be used for monitoring renal function only and not for medication dosing. [facility] GFR/1.73 sq M.predicted CKD-EPI (S/P/Bld) [Vol rate/Area] 96 >=60 mL/min/1.73 m2 [facility] Glucose [Mass/Vol] 95 mg/dL 65 - 99 mg/dL [facility] H[facility]3 [Moles/Vol] 23 mmol/L 21 - 32 mmol/L [facility] Interpretation and review of laboratory results Abnormal [facility] Potassium [Moles/Vol] 3.5 mmol/L 3.5 - 5.1 mmol/L [facility] Sodium [Moles/Vol] 139 mmol/L 135 - 145 mmol/L [facility] Urea nitrogen [Mass/Vol] 10 mg/dL 8 - 25 mg/dL [facility] Urea nitrogen/Creatinin e [Mass ratio] 11.8 mg/mg [facility] CBC WITH AUTO DIFFERENTIALon 07-08-2020 Basophils (Bld) [#/Vol] 0.02 10*3/uL [facility] Basophils/100 WBC (Bld) 0.2 % [facility] Eosinophils (Bld) [#/Vol] 0.04 10*3/uL [facility] Eosinophils/100 WBC (Bld) 0.5 % [facility] Erythrocyte distribution width (RBC) [Entitic vol] 12.0 % 11.6 - 14.8 % [facility] Hematocrit (Bld) [Volume fraction] 43.3 % 36 - 46 % [facility] Hemoglobin (Bld) [Mass/Vol] 14.7 g/dL 12 - 16 g/dL [facility] Immature granulocytes (Bld) [#/Vol] 0.00 10*3/uL [facility] Immature granulocytes/100 WBC (Bld) 0.00 % [facility] Comment on above: The IG parameter is the percentage of metamyelocytes, myelocytes and promyelocytes. An immature granulocyte count (IG) of 1% or more suggests the possibility of infection, an IG count of 3% is very likely related to an infection. Lymphocytes (Bld) [#/Vol] 2.44 10*3/uL [facility] Lymphocytes/100 WBC (Bld) 30.2 % [facility] MCH (RBC) [Entitic mass] 29.2 pg 26 - 34 pg [facility] MCHC (RBC) [Mass/Vol] 33.9 g/dL 31 - 37 g/dL [facility] MCV (RBC) [Entitic vol] 86.1 fL 80 - 100 fL [facility] Monocytes (Bld) [#/Vol] 0.40 10*3/uL [facility] Monocytes/100 WBC (Bld) 5.0 % [facility] Neutrophils (Bld) [#/Vol] 5.17 10*3/uL [facility] Neutrophils/100 WBC (Bld) 64.1 % [facility] Platelet mean volume (Bld) [Entitic vol] 11.8 fL 9.4 - 12.4 fL [facility] Platelets (Bld) [#/Vol] 228 10*3/uL [facility] RBC (Bld) [#/Vol] 5.03 10*6/uL [facility] (Bld) [#/Vol] 8.07 10*3/uL [facility]BD[facility] PELVIS WITH IV CO NTRAST [...] TueJul 08, 2020 3:59:53 PM EST Normal [facility] Comment on above: Order Comment: Injur [...] changes from recent appendectomy. Workstation ID: [id number] [facility] EXAMINATION: CT ABDO MEN PELVIS WITH [...] No acute or aggressive osseous abnormality identified. [facility] 1. No acute infectio us, inflammatory or obstructive process identified in the abdomen or pelvis. 2. Postsurgical changes from recent appendectomy. Workstation ID: [id number] [facility] Hepatic Function Panel (LFT) on 07-08-2020 Albumin [Mass/Vol] 3.8 g/dL 3.2 - 5.2 g/dL [facility] ALP [Catalytic activity/Vol] 71 U/L 40 - 140 U/L [facility] ALT [Catalytic activity/Vol] 31 U/L 14 - 65 U/L [facility] AST [Catalytic activity/Vol] 18 U/L 0 - 45 U/L [facility] Bilirubin [Mass/Vol] 0.3 mg/dL 0 - 1.3 mg/dL [facility] Bilirubin.conjugat ed [Mass/Vol] mg/dL 0 - 0.4 mg/dL [facility] Protein [Mass/Vol] 7.9 g/dL 6 - 8 g/dL [facility] Lipaseon 07-08-2020 Lipase [Catalytic activity/Vol] 95 U/L 73 - 393 U/L [facility] Otheron 07-08-2020 Interpretation and review of laboratory results Normal [facility] Extra Tube Hold for add-ons. [facility] Comment on above: Auto resulted. URINALYSISon 07-08-2020 Bacteria Auto Ql (U) Rare Abnormal None Seen /hpf [facility] Bilirubin Ql (U) Negative Negative [facility] th Clarity Refractometry automated (U) Clear Clear [facility] Color (U) Yellow Colorless, Yellow [facility] Epithelial cells.squamous Auto (Urine sed) [#/Area] 1 [facility] Glucose Auto test strip (U) [Mass/Vol] Negative Negative mg/dL [facility] Hemoglobin Auto test strip Ql (U) Negative Negative [facility] Interpretation and review of laboratory results Abnormal [facility] Ketones (U) [Mass/Vol] Negative Negative mg/dL [facility] Leukocyte esterase Auto test strip Ql (U) Negative Negative [facility] Nitrite Auto test strip Ql (U) Negative Negative [facility] pH (U) 7.5 [pH] High [facility] Protein (U) [Mass/Vol] Negative Negative mg/dL [facility] Specific gravity (U) [Rel density] 1.020 [facility] Urobilinogen (U) [Mass/Vol] <2.0 <2.0 mg/dL [facility] Microscopic examinat ion is performed on all urinalysis samples and only positive findings are reported. The test for blood on the chemical analytic portion of urinalysis may also be positive due to hemoglobinuria and myoglobinuria and if red blood cells are present they are quantified by microscopic examination. [facility] Urine Pregnancyon 07-08-2020 HCG ( test) Ql (U) Negative Negative [facility] Interpretation and review of laboratory results Normal [facility] CBC WITH AUTO DIFFERENTIALon 06-23-2020 Basophils (Bld) [#/Vol] 0.00 10*3/uL [facility] Basophils/100 WBC (Bld) 0.0 % [facility] Eosinophils (Bld) [#/Vol] 0.00 10*3/uL [facility] Eosinophils/100 WBC (Bld) 0.0 % [facility] Erythrocyte distribution width (RBC) [Entitic vol] 12.2 % 11.6 - 14.8 % [facility] Hematocrit (Bld) [Volume fraction] 37.2 % 36 - 46 % [facility] Hemoglobin (Bld) [Mass/Vol] 12.6 g/dL 12 - 16 g/dL [facility] Immature granulocytes (Bld) [#/Vol] 0.01 10*3/uL [facility] Immature granulocytes/100 WBC (Bld) 0.10 % [facility] Comment on above: The IG parameter is the percentage of metamyelocytes, myelocytes and promyelocytes. An immature granulocyte count (IG) of 1% or more suggests the possibility of infection, an IG count of 3% is very likely related to an infection. Interpretation and review of laboratory results Abnormal [facility] Lymphocytes (Bld) [#/Vol] 0.82 10*3/uL Low [facility] Lymphocytes/100 WBC (Bld) 6.8 % [facility] MCH (RBC) [Entitic mass] 29.3 pg 26 - 34 pg [facility] MCHC (RBC) [Mass/Vol] 33.9 g/dL 31 - 37 g/dL [facility] MCV (RBC) [Entitic vol] 86.5 fL 80 - 100 fL [facility] Monocytes (Bld) [#/Vol] 0.31 10*3/uL [facility] Monocytes/100 WBC (Bld) 2.6 % [facility] Neutrophils (Bld) [#/Vol] 10.86 10*3/uL High [facility] Neutrophils/100 WBC (Bld) 90.5 % [facility] Platelet mean volume (Bld) [Entitic vol] 12.1 fL 9.4 - 12.4 fL [facility] Platelets (Bld) [#/Vol] 197 10*3/uL [facility] RBC (Bld) [#/Vol] 4.30 10*6/uL [facility]alth WBC (Bld) [#/Vol] 12.00 10*3/uL [facility] CBC WITH AUTO DIFFERENTIALon 06-22-2020 Basophils (Bld) [#/Vol] 0.02 10*3/uL [facility] Basophils/100 WBC (Bld) 0.1 % [facility] Eosinophils (Bld) [#/Vol] 0.00 10*3/uL [facility] Eosinophils/100 WBC (Bld) 0.0 % [facility] Erythrocyte distribution width (RBC) [Entitic vol] 12.0 % 11.6 - 14.8 % [facility] Hematocrit (Bld) [Volume fraction] 40.2 % 36 - 46 % [facility] Hemoglobin (Bld) [Mass/Vol] 14.0 g/dL 12 - 16 g/dL [facility] Immature granulocytes (Bld) [#/Vol] 0.02 10*3/uL [facility] Immature granulocytes/100 WBC (Bld) 0.10 % [facility] Comment on above: The IG parameter is the percentage of metamyelocytes, myelocytes and promyelocytes. An immature granulocyte count (IG) of 1% or more suggests the possibility of infection, an IG count of 3% is very likely related to an infection. Interpretation and review of laboratory results Abnormal [facility] Lymphocytes (Bld) [#/Vol] 1.20 10*3/uL [facility] Lymphocytes/100 WBC (Bld) 5.9 % [facility] MCH (RBC) [Entitic mass] 29.4 pg 26 - 34 pg [facility] MCHC (RBC) [Mass/Vol] 34.8 g/dL 31 - 37 g/dL [facility] MCV (RBC) [Entitic vol] 84.5 fL 80 - 100 fL [facility] Monocytes (Bld) [#/Vol] 0.67 10*3/uL [facility] Monocytes/100 WBC (Bld) 3.3 % [facility] Neutrophils (Bld) [#/Vol] 18.51 10*3/uL High [facility] Neutrophils/100 WBC (Bld) 90.6 % [facility] Platelet mean volume (Bld) [Entitic vol] 11.7 fL 9.4 - 12.4 fL [facility] Platelets (Bld) [#/Vol] 223 10*3/uL [facility] RBC (Bld) [#/Vol] 4.76 10*6/uL [facility]alth WBC (Bld) [#/Vol] 20.42 10*3/uL [facility] COVID-19, MOLECULARon 2019 SARS-COV-2 (BERG ID) Not Detected Normal Not Detected [facility] Comment on above: Result Comment: This [...] at the following links: For Healthcare Providers: https://www.fda.gov/media/108108/download For Patients: https://www.fda.gov/media/813445/download Performed By: #### L [id number] #### [facility] [address] [address] Kenneth Arrieta M.D. [id number] COVID-19, Molecularon 2019 Interpretation and review of laboratory results Normal [facility] SARS-CoV-2 Not Detected Not Detected [facility] Comment on above: This test was [...] at the following links: For Healthcare Providers: https://www.fda.gov/media/257273/download For Patients: https://www.fda.gov/media/866233/download CT ABDOMEN PELVIS WITH IV CO NTRAST [...] seen directed medially within the central anterior [id number] pelvis. No bowel obstruction. Some physiologic free [...] is directed medially within the central anterior rnw-ot-lgazr pelvis with no bowel obstruction. 3. Some [...] TueJun 22, 2020 8:48:07 PM EST Normal [facility] Comment on above: Order Comment: Injur [...] seen directed medially within the central anterior nlp-fk-sjfel pelvis. No bowel obstruction. Some physiologic free [...] is directed medially within the central anterior nnk-rw-hqwjb pelvis with no bowel obstruction. 3. Some physiologic free fluid in the cul-de-sac. Some small follicles seen in the ovaries bilaterally. Results were called by Dr. Clifford Wilson to Dr. ANDREY VALDEZ on 06/22/2020 at 16:43. HSINT/adrianna Workstation ID: [id number] [facility] 1. Acute appendiciti s. The appendix is seen just anterior to the right common iliac artery and is distended approaching 9 mm with wall enhancement and surrounding fatty stranding. 2. Moderate amount of fecal matter in the proximal colon. The cecum is directed medially within the central anterior xml-yu-gdqwr pelvis with no bowel obstruction. 3. Some physiologic free fluid in the cul-de-sac. Some small follicles seen in the ovaries bilaterally. Results were called by Dr. Clifford Wilson to Dr. ANDREY VALDEZ on 06/22/2020 at 16:43. GJT/dnb Workstation ID: [id number] [facility] EXAMINATION: CT ABDO MEN PELVIS WITH [...] seen directed medially within the central anterior tbl-pn-gwfzh pelvis. No bowel obstruction. Some physiologic free fluid in the cul-de-sac. Some follicles seen in the ovaries bilaterally. The uterus and urinary bladder unremarkable. No acute osseous abnormality. [facility] Comprehensive Metabolic Pane kendra 06-22-2020 Albumin [Mass/Vol] 4.0 g/dL 3.2 - 5.2 g/dL [facility] ALP [Catalytic activity/Vol] 63 U/L 40 - 140 U/L [facility] ALT [Catalytic activity/Vol] 27 U/L 14 - 65 U/L [facility] Anion gap [Moles/Vol] 10 mmol/L 10 - 20 mmol/L [facility] AST [Catalytic activity/Vol] 18 U/L 0 - 45 U/L [facility] Bilirubin [Mass/Vol] 0.5 mg/dL 0 - 1.3 mg/dL [facility] Calcium [Mass/Vol] 9.1 mg/dL 8.4 - 10. 2 mg/dL [facility] Chloride [Moles/Vol] 109 mmol/L High 98 - 108 mmol/L [facility] Creatinine [Mass/Vol] 0.83 mg/dL 0.40 - 1.10 [facility] GFR/1.73 sq M predicted among non-blacks MDRD (S/P/Bld) [Vol rate/Area] The eGFR should be used for monitoring renal function only and not for medication dosing. [facility] GFR/1.73 sq M.predicted CKD-EPI (S/P/Bld) [Vol rate/Area] 98 >=60 mL/min/1.73 m2 [facility] Glucose [Mass/Vol] 96 mg/dL 65 - 99 mg/dL [facility] HCO3 [Moles/Vol] 25 mmol/L 21 - 32 mmol/L [facility] Potassium [Moles/Vol] 3.7 mmol/L 3.5 - 5.1 mmol/L [facility] Protein [Mass/Vol] 7.8 g/dL 6 - 8 g/dL [facility] Sodium [Moles/Vol] 140 mmol/L 135 - 145 mmol/L [facility] Urea nitrogen [Mass/Vol] 10 mg/dL 8 - 25 mg/dL [facility] Urea nitrogen/Creatinin e [Mass ratio] 12.0 mg/mg [facility] ECG 12-LEADon 06-22-2020 Andrey Valdez MD 2019 4:57 PM ECG 12 Lead Date/Time: 06/22/2020 4:51 PM Performed by: Andrey Valdez MD Authorized by: Andrey Valdez MD Interpreted by ED attending physician Comparison: not compared with previous ECG Rhythm: sinus rhythm BPM: 85 NC Interval: 108 QRS Interval: 82 QT Interval: 426 Clinical impression: non-specific ECG [facility] Lipaseon 06-22-2020 Lipase [Catalytic activity/Vol] 72 U/L Low 73 - 393 U/L [facility] Otheron 06-22-2020 Interpretation and review of laboratory results Abnormal [facility] URINALYSISon 06-22-2020 Bacteria Auto Ql (U) Few Abnormal None Seen /hpf [facility] Bilirubin Ql (U) Negative Negative [facility] th Clarity Refractometry automated (U) Cloudy Abnormal Clear [facility] Color (U) Yellow Colorless, Yellow [facility] Epithelial cells.squamous Auto (Urine sed) [#/Area] 3 [facility] Glucose Auto test strip (U) [Mass/Vol] Negative Negative mg/dL [facility] Hemoglobin Auto test strip Ql (U) Negative Negative [facility] Interpretation and review of laboratory results Abnormal [facility] Ketones (U) [Mass/Vol] 20 Abnormal Negative mg/dL [facility] Leukocyte esterase Auto test strip Ql (U) Negative Negative [facility] Nitrite Auto test strip Ql (U) Negative Negative [facility] pH (U) 7.0 [pH] [facility] Protein (U) [Mass/Vol] Negative Negative mg/dL [facility] Specific gravity (U) [Rel density] 1.020 [facility] Urobilinogen (U) [Mass/Vol] <2.0 <2.0 mg/dL [facility] WBC Auto (Urine sed) [#/Area] 2 [facility] Microscopic examinat ion is performed on all urinalysis samples and only positive findings are reported. The test for blood on the chemical analytic portion of urinalysis may also be positive due to hemoglobinuria and myoglobinuria and if red blood cells are present they are quantified by microscopic examination. [facility] Urine Pregnancyon 06-22-2020 HCG ( test) Ql (U) Negative Negative [facility] Interpretation and review of laboratory results Normal [facility] Vital Signs Date Time Vital Sign Value Performing Clinician Faci lity 07-08-2020 15:34-0500 BP Diastolic 79 mm[Hg] [facility] 07-08-2020 15:34-0500 BP Systolic 125 mm[Hg] [facility] 07-08-2020 15:34-0500 Pulse (Heart Rate) 81 /min [facility] 07-08-2020 15:34-0500 Pulse Oximetry 99 % [facility] 07-08-2020 15:34-0500 Respiratory Rate 16 /min [facility] 07-08-2020 13:50-0500 BMI (Body Mass Index) 20.36 kg/m2 [facility] 07-08-2020 13:50-0500 Body Temperature 98.49 [degF] Kate [facility] 07-08-2020 13:50-0500 Body weight 58.97 kg Kate [facility] 07-08-2020 13:50-0500 Height 170.2 cm Kate [facility] 06-23-2020 07:35-0500 Body Temperature 98.01 [degF] Andrey [facility] 06-23-2020 07:35-0500 BP Diastolic 68 mm[Hg] [facility] 06-23-2020 07:35-0500 BP Systolic 106 mm[Hg] [facility] 06-23-2020 07:35-0500 Pulse (Heart Rate) 75 /min [facility] 06-23-2020 07:35-0500 Pulse Oximetry 94 % [facility] 06-23-2020 07:35-0500 Respiratory Rate 16 /min [facility] 06-22-2020 14:15-0500 BMI (Body Mass Index) 20.36 kg/m2 [facility] 06-22-2020 14:15-0500 Body weight 58.97 kg [facility] 06-22-2020 14:15-0500 Height 170.2 cm [facility] Encounters Encounter Date Encounter Type Care Provider [...] End: 07-08-2020 Emergency department patient visit PHYSICIAN [facility] Start: 07-08-2020 End: 07-08-2020 Emergency department patient visit Kate Mendoza Work Phone: [facility] Emergency Department Comment on above: Abdominal pain, unsp ecified abdominal location (Primary Dx) Start: 06-22-2020 End: 06-23-2020 Patient encounter procedure PHYSICIAN [facility] Start: 06-22-2020 End: 06-23-2020 Emergency department patient visit Andrey Valdez Work Phone: [facility] Med Surg Comment on above: Acute appendicitis w ith localized peritonitis, without perforation, abscess, or gangrene (Primary Dx) Procedures Date Procedure Procedure Detail Performing Clinician Start: 07-08-2020 Ct abdomen & pelvis w/contrast material Kate [facility] Work Phone: Start: 07-08-2020 Basic metabolic 2000 panel - Serum or Plasma Kate [facility] Work Phone: Start: 07-08-2020 Choriogonadotropin ( test) [Presence] in Urine Katejalen Velasquez [facility] Work Phone: Start: 07-08-2020 Complete blood count with white cell differential, automated [facility] Work Phone: Start: 07-08-2020 Complete blood count with white cell differential, manual [facility] Work Phone: Start: 07-08-2020 Hepatic function 2000 panel - Serum or Plasma [facility] Work Phone: Start: 07-08-2020 LIGHT BLUE TOP [facility] Work Phone: Start: 07-08-2020 LIGHT GREEN TOP [...] Work Phone: Start: 06-22-2020 12 lead ECG [facility] Work Phone: Start: 06-22-2020 Ct abdomen & pelvis w/contrast material Andrey Wu Work Phone: Start: 06-22-2020 Complete blood count with white cell differential, automated Andrey Valdez Work Phone: Start: 06-22-2020 Complete blood count with white cell differential, manual Andrey Valdez Work Phone: Start: 06-22-2020 Comprehensive metabolic 2000 panel - Serum or Plasma [facility] Work Phone: Start: 06-22-2020 Lipase [Enzymatic activity/volume] in Serum or Plasma Andrey Wu Work Phone: Start: 06-22-2020 Choriogonadotropin ( test) [Presence] in Urine Andrey Valdez Work Phone: Start: 06-22-2020 Urinalysis [facility] Valdez Work Phone: Plan of Treatment Date Care Activity Detail Author Start: 04-22-2020 Influenza vaccination given Se quential Influenza Vaccine (#1) [facility] Start: 2012 Hepatitis C antibody , confirmatory test Hepatitis C Screening [facility] Start: 2009 HIV screening HIV Screening [facility] Start: 2006 Adolescent depressio n screening assessment Depression Screening (PHQ9) [facility] Start: 2005 Vaccination for tri n papillomavirus HPV Vaccines (1 - 2-dose series) [facility] Start: 1997 History and physical examination, annual for health maintenance Wellness Visit [facility] Start: 1994 Screening for malign ant neoplasm of cervix Pap Smear [facility] Start: 1994 Tetanus vaccination Tetanus: Every 1 0yrs [facility] Procedure on tissue specimen Tis kyara Exam Pathology and Cytology STAT Release Upon Ordering for 1 Occurrences starting 06/22/2020 [facility] Comment on above: Release Upon Orderin g for 1 Occurrences starting 06/22/2020 Payers Date Payer Category Payer Unknown [employer] PPO [id number] 2019-Present [id number] 2019 Unknown [id number] 1994 Unknown [id number] 1994 Unknown [id number] 1994 Unknown [id number] 1994 Unknown [id number] [id number] 1994 Unknown [id number] [id number] 1994 Unknown [id number] [id number] 1994 Unknown [id number] [id number] 1994 Unknown [id number] [id number]58 1994 Unknown [id number] 2.16.840.1.282921.3.579.2.1258 1994 Unknown [id number] 2.16.840.1.396590.3.579.2.1258 1994 Unknown [id number] 2.16.840.1.909425.3.579.2.1258 1994 Unknown [id number] 2.16.840.1.292988.3.579.2.1258 1994 Unknown [id number] 2.16.840.1.008120.3.579.2.1258 1994 Unknown [id number] 2.16.840.1.113124.3.579.2.1258 1994 Unknown [id number] [id number] 1959 Unknown [id number] Social History Date Type Detail Facility Start: 06-23-2020 End: 07-08-2020 Tobacco smoking status AZIS Never smoker [facility] Start: 06-23-2020 End: 07-08-2020 Tobacco use and exposure Never used [facility] Start: 06-23-2020 End: 07-08-2020 Alcohol intake Ex-drinker (finding) [facility] Sex Assigned At Not on file [facility] Exposure to SARS-CoV-2 (event) Not sure [facility] Discharge Instructions * Instructions* Magdi Salazar MD - 06/23/[address] Salazar (Hernia Repair/Gallbladder) [phone] No Lifting, no bending, no pushing May [...] A MEDICAL NATURE, CALL YOUR DOCTOR/EMERGENCY ROOM. [facility] EMERGENCY ROOM [phone] Make a follow-up appointment with your surgeon. Post Operative Instructions Dr Salazar (Hernia Repair/Gallbladder) [phone] No Lifting, no bending, no pushing May [...] A MEDICAL NATURE, CALL YOUR DOCTOR/EMERGENCY ROOM. [facility] EM[facility] RO[facility] [phone] Make a follow-up appointment with your surgeon. documented in this encounter* Attachments The following attachments cannot be sent through Care Everywhere. 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 CSN: [id number] PCP: Physician No History: Chief Complaint: Abdominal [...] file Gets together: Not on file Attends sikh service: Not on file Active member of [...] Procedure Abnormality Status --------- ------ CBC Auto Differential[[id number]] Abnormal Final result Please view results for [...] a case request, and contact the nurse grants administrator tape controlled machine stitcher. Patient is to be kept n.p.o. He would like 3.375 of Zosyn given to the patient. He would like the patient admitted to his service. Clinical Impression: 1. Acute appendicitis with localized peritonitis, without perforation, abscess, or gangrene Disposition: hospitalize to Operating Room Andrey Valdez M.D. Attending Physician [facility] Emergency Departments 06/22/2020 Portions of this note [...] NOTE [facility] EM[facility]Y [facility] NAME: Mele Doll AGE: 24 y.o. : 1995 VISIT DATE: 07/08/2020 CSN: [id number] PCP: Physician No Chief Complaint Patient presents [...] file Gets together: Not on file Attends sikh service: Not on file Active member of [...] Colorless, Yellow Clarity, Urine Clear Clear Specific [place] 1.020 1.005 - 1.025 pH, Urine 7.5 [...] Magdi Salazar MD. Specialty: General Surgery E [facility] [id number] Contact information for after-discharge care Follow-up information [...] change in drainage on op-sites. MELE DOLL [facility] [id number] [facility] [id number] 1995 DATE 06/22/2020 OPERATIVE REPORT SURGEON MAGDI [...] utilizing 0 Ethibond with an open technique. Ddmhcg-jm-ykviw suture was placed after complete desufflation of [...] appendicitis. MAGDI SALAZAR MD D 06/22/2020 20:33 [id number] T 06/23/2020 01:38 VMT/MODL Umbilical dressing saturated with light pink serous drainage.Pubic dressing 1/2 saturated with shadow of pink drainage. Brief Post Operative Note Patient Name: Mele Doll : 1995 (24 y.o.) Date of Service: 06/22/2020 CSN: [id number] Procedure(s): APPENDECTOMY LAPAROSCOPIC Pre-Operative Diagnoses: RIGHT SIDED ABDOMINAL PAIN - ACUTE APPENDICITIS Post-Operative Diagnoses: ACUTE RETROCECAL APPENDICITIS Surgeon(s) and Role: * Magdi Salazar MD - Primary Anesthesiologist: Jaylin Buckley MD Charcoal Unloader: Tanisha Varghese RN Scrub Person Assist: Jadyn [...] previous ECG Rhythm: sinus rhythm BPM: 85 NC Interval: 108 QRS Interval: 82 QT Interval: 426 Clinical impression: non-specific ECG documented in this encounter INFORMATION SOURCE (unrecogn ized section and content) DATE CREATED AUTHOR 07/13/2020 [facility] DATE CREATED AUTHOR AUTHOR'S ORGANIZ ATION 01/28/2023 [facility] DATE CREATED AUTHOR AUTHOR'S ORGANIZ ATION 04/24/2024 [facility] EPIC FOR RECORDS PERTAINING TO PATIENTS [...] BE BASED ON THE PRIMARY CLINICAL RECORDS. [employer] provides no warranty or guarantee of the accuracy or completeness of information in this document.
--- NOTE | 2024-04-30 14:04 | US_ITS ---
[address] [address] Patient Name: MELE DOLL MRN: [id number] date: 1995 Sex: F Assigned Patient Location: [facility] Current Patient Location: [facility] Accession/Order Number: [id number] Exam Date: 04/30/2024 14:07 Report Date: 04/30/2024 14:47 At the request of: CIERA KAUFFMAN Procedure: US OB BPP w non-stress EXAMINATION: US OB BPP w non-stress HISTORY: THIRD TRIMESTER Z34.93 COMPARISON: No relevant comparison available. TECHNIQUE: Ultrasound biophysical profile was performed in the radiology department. non-reactive stress testing was performed by nursing staff in the birthing center. FINDINGS: BREATHING MOVEMENTS: 2 GROSS BODY MOVEMENTS: 2 TONE: 2 QUALITATIVE AMNIOTIC FLUID VOLUME: 2 PRESENTATION: CEPHALIC HEART RATE: 125.58 bpm AMNIOTIC FLUID VOLUME: 11.1 cm GESTATIONAL AGE: 35 weeks 0 days US/US OB BPP w non-stress IMPRESSION: Total biophysical profile score: 8 Electronically authenticated by: BRAD WILLETT Date: 04/30/2024 14:47
[2024-04-30 14:36] VITALS: BP 131/84; PULSE 126
== END 2024-04-30 14:57 | disposition home or self-care (01) ==
LOC: US 07:06 → FBC 14:02
PROVIDERS: PCP Obstetrics & Gynecology; Visit Provider Physician Assistant
DX: Z34.93 Encounter for supervision of normal pregnancy, unspecified, third trimester (principal); Z3A.35 35 weeks gestation of pregnancy
CPT/HCPCS: 76818

== ENCOUNTER 2024-05-03 07:06 | Outpatient (OUT) | payer BC, SELFPAY ==
--- OUTSIDE RECORDS SUMMARY | 2024-05-03 07:10 | XMS_ITS | CCD ---
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 Tammi Flemnig HCG RANGE SEE BELOW Normal [facility] Comment on above: Result Comment: 5-50 0.2-1 WEEK 50-500 1-2 WEEKS 100-5,000 2-3 WEEKS 500-10,000 3-4 WEEKS 1,000-50,000 4-5 WEEKS 10,000-100,000 5-6 WEEKS 15,000-200,000 6-8 WEEKS 10,000-100,000 2-3 MONTHS Performed By: #### P REGQNT #### [facility] [address] [place] [address] Dr. Tammi Fleming PREG QUANT HCGon 01-10-2023 HCG QUANT 231 mIU/mL Normal [facility] Comment on above: Performed By: #### P REGQNT #### [facility] [address] [place] [address] Dr. Tammi Fleming HCG RANGE SEE BELOW Normal [facility] Comment on above: Result Comment: 5-50 0.2-1 WEEK 50-500 1-2 WEEKS 100-5,000 2-3 WEEKS 500-10,000 3-4 WEEKS 1,000-50,000 4-5 WEEKS 10,000-100,000 5-6 WEEKS 15,000-200,000 6-8 WEEKS 10,000-100,000 2-3 MONTHS Performed By: #### P REGQNT #### [facility] [address] [place] [address] Dr. Tammi Fleming CBC AUTO DIFFon 01-04-2023 BASO # 0.0 103/ul Normal 0.0-0.1 [facility] Comment on above: Performed By: #### C BC #### [facility] [address] [place] [address] Dr. Tammi Fleming Basophils/100 WBC (Bld) 0.3 % Normal 0.2-2.0 [facility] Comment on above: Performed By: #### C BC #### [facility] [address] [place] [address] Dr. Tammi Fleming EO # 0.1 103/ul Normal 0.0-0.7 [facility] Comment on above: Performed By: #### C BC #### [facility] [address] [place] [address] Dr. Tammi Fleming Eosinophils/100 WBC (Bld) 0.8 % Critically low 0.9-7.0 [facility] Comment on above: Performed By: #### C BC #### [facility] [address] [place] [address] Dr. Tammi Fleming Erythrocyte distribution width (RBC) [Ratio] 12.0 % Normal 11.0-15.0 [facility] Comment on above: Performed By: #### C BC #### [facility] [address] [place] [address] Dr. Tammi Fleming Hematocrit (Bld) [Volume fraction] 42.6 % Normal 36.0-48.0 [facility] Comment on above: Performed By: #### C BC #### [facility] [address] [place] [address] Dr. Tammi Fleming Hemoglobin (Bld) [Mass/Vol] 14.5 g/dL Normal 12.0-16.0 [facility] Comment on above: Performed By: #### C BC #### [facility] [address] [place] [address] Dr. Tammi Fleming IG # 0.02 10e3/ul Normal 0.00-0.03 [facility] Comment on above: Performed By: #### C BC #### [facility] [address] [place] [address] Dr. Tammi Fleming IG % 0.3 % Normal 0.0-0.5 [facility] Comment on above: Performed By: #### C BC #### [facility] [address] [place] [address] Dr. Tammi Fleming LYMPH # 1.6 103/ul Normal 1.2-3.8 [facility] Comment on above: Performed By: #### C BC #### [facility] [address] [place] [address] Dr. Tammi Fleming Lymphocytes/100 WBC (Bld) 19.9 % Critically low 20.5-60.0 [facility] Comment on above: Performed By: #### C BC #### [facility] [address] [place] [address] Dr. Tammi Fleming MANUAL DIFF REQ NO Normal [facility] Comment on above: Performed By: #### C BC #### [facility] [address] [place] [address] Dr. aTmmi Fleming MCH (RBC) [Entitic mass] 29.8 pg Normal 26.7-34.0 [facility] Comment on above: Performed By: #### C BC #### [facility] [address] [place] [address] Dr. Tammi Fleming MCHC (RBC) [Mass/Vol] 34.0 g/dL Normal 29.9-35.2 [facility] Comment on above: Performed By: #### C BC #### [facility] [address] [place] [address] Dr. Tammi Fleming MCV (RBC) [Entitic vol] 87.7 fL Normal 81.0-99.0 [facility] Comment on above: Performed By: #### C BC #### [facility] [address] [place] [address] Dr. Tammi Fleming MONO # 0.4 103/ul Normal 0.3-0.8 [facility] Comment on above: Performed By: #### C BC #### [facility] [address] [place] [address] Dr. Tammi Fleming Monocytes/100 WBC (Bld) 5.0 % Normal 1.7-12.0 [facility] Comment on above: Performed By: #### C BC #### [facility] [address] [place] [address] Dr. Tammi Fleming NEUT # 5.8 103/ul Normal 1.4-6.5 [facility] Comment on above: Performed By: #### C BC #### [facility] [address] [place] [address] Dr. Tammi Fleming Neutrophils/100 WBC (Bld) 73.7 % Normal 43.0-75.0 [facility] Comment on above: Performed By: #### C BC #### [facility] [address] [place] [address] Dr. Tammi Fleming Platelet mean volume (Bld) [Entitic vol] 12.1 fL Normal 9.5-13.5 [facility] Comment on above: Performed By: #### C BC #### [facility] [address] [place] [address] Dr. Tammi Fleming PLT 184 103/ul Normal 150-450 [facility] Comment on above: Performed By: #### C BC #### [facility] [address] [place] [address] Dr. Tammi Fleming RBC 4.86 106/ul Normal 4.20-5.40 [facility] Comment on above: Performed By: #### C BC #### [facility] [address] [address] [address] Tammi Fleming WBC 7.9 103/ul Normal 4.0-11.0 [facility] Comment on above: Performed By: #### C BC #### [facility] [address] [address] [address] Tammi Fleming ER URINE PROFILEon 3 Bilirubin Ql (U) Negative Normal NEGATIVE [facility] Comment on above: Performed By: #### Angela CHRISTIE UMICRO #### [facility] [address] [address] [address] Tammi Fleming Clarity (U) CLEAR Normal CLEAR [facility] Comment on above: Performed By: #### Angela CHRISTIE UMICRO #### [facility] [address] [place] [address] Dr. Tammi Fleming Color (U) LT. YELLOW Normal YELLOW [facility] Comment on above: Performed By: #### Angela CHRISTIE UMICRO #### [facility] [address] [place] [address] Dr. Tammi Fleming ERUAHD A micrscopic examina tion will be performed if indicated. Normal [facility] Comment on above: Performed By: #### Angela CHRISTIE UMICRO #### [facility] [address] [place] [address] Dr. Tammi Fleming Glucose Ql (U) Negative Normal NEGATIVE [facility] Comment on above: Performed By: #### Angela CHRISTIE UMICRO #### [facility] [address] [place] [address] Dr. Tammi Fleming Hemoglobin Ql (U) LARGE Abnormal NEGATIVE [facility] Comment on above: Performed By: #### Angela CHRISTIE UMICRO #### [facility] [address] [place] [address] Dr. Tammi Fleming Ketones Ql (U) Negative Normal NEGATIVE [facility] Comment on above: Performed By: #### Angela CHRISTIE UMICRO #### [facility] [address] [place] [address] Dr. Tammi Fleming LEUKOCYTES Negative Normal NEGATIVE [facility] Comment on above: Performed By: #### CIRILO SORTO #### [facility] [address] [place] [address] Dr. Tammi Fleming Nitrite Ql (U) Negative Normal NEGATIVE [facility] Comment on above: Performed By: #### NAGA SORTORO #### [facility] [address] [place] [address] Dr. Tammi Fleming pH (U) 7.0 [pH] Normal 5-9 [facility] Comment on above: Performed By: #### CIRILO SORTO #### [facility] [address] [place] [address] Dr. Tammi Fleming SPEC GRAVITY <=1.005 Abnormal 1.005-<=1.025 [facility] Comment on above: Performed By: #### NAGA SORTORO #### [facility] [address] [place] [address] Dr. Tammi Fleming UA PROTEIN Negative Normal NEGATIVE/ TRACE [facility] Comment on above: Performed By: #### CIRILO SORTO #### [facility] [address] [place] [address] Dr. Tammi lFeming UR MICRO IND INDICATED Normal [facility] Comment on above: Performed By: #### NAGA SORTORO #### [facility] [address] [place] [address] Dr. Tammi Fleming Urobilinogen Qn (U) 0.2 {Elder'U}/dL Normal 0.2 - 1.0 [facility] Comment on above: Performed By: #### NAGA SORTORO #### [facility] [address] [place] [address] Dr. Tammi Fleming PREG QUANT HCGon 01-04-2023 HCG QUANT 4523 mIU/mL Normal [facility] Comment on above: Performed By: #### P REGQNT #### [facility] [address] [place] [address] Dr. Tammi Fleming HCG RANGE SEE BELOW Normal [facility] Comment on above: Result Comment: 5-50 0.2-1 WEEK 50-500 1-2 WEEKS 100-5,000 2-3 WEEKS 500-10,000 3-4 WEEKS 1,000-50,000 4-5 WEEKS 10,000-100,000 5-6 WEEKS 15,000-200,000 6-8 WEEKS 10,000-100,000 2-3 MONTHS Performed By: #### P REGQNT #### [facility] [address] [place] [address] Dr. Tammi Fleming URINE MICROSCOPIC ONLYon BACTERIA TRACE Abnormal NONE SEEN [facility] Comment on above: Performed By: #### Angela CHRISTIE UMICRO #### [facility] [address] [place] [address] Dr. Tammi Fleming Bacteria identified Cx Nom (U) NOT INDICATED Normal [facility] Comment on above: Performed By: #### Angela CHRISTIE UMICRO #### [facility] [address] [place] [address] Dr. Tammi Fleming CAST NONE SEEN Normal NONE SEEN [facility] Comment on above: Performed By: #### Angela CHRISTIE UMICRO #### [facility] [address] [place] [address] Dr. Tammi Fleming Crystals LM Nom (Urine sed) NONE SEEN Normal NONE SEEN [facility] Comment on above: Performed By: #### Angela CHRISTIE UMICRO #### [facility] [address] [place] [address] Dr. Tammi Fleming Epithelial cells LM Ql (Urine sed) NONE SEEN Normal NONE SEEN /RARE [facility] Comment on above: Performed By: #### E RUR, UMICRO #### [facility] [address] [place] [address] Dr. Tammi Fleming MUCOUS NONE SEEN Normal NONE SEEN [facility] Comment on above: Performed By: #### E JENNIFERR, UMICRO #### [facility] [address] [place] [address] Dr. Tammi Fleming RBC 2-5 Abnormal 0-2 [facility] Comment on above: Performed By: #### E CIRILO CHRISTIE #### [facility] [address] [place], [place] [address] Dr. Tammi Fleming WBC NONE SEEN Normal NONE SEEN [facility] Comment on above: Performed By: #### E CIRILO CHRISTIE #### [facility] [address] [place], [place] [address] Dr. Tammi Fleming US PREG TVon 01-04-2023 [...] DEYVI FELDER Date: 2023-01-04 18:08 Normal [facility] BMPon 07-08-2020 Anion gap [Moles/Vol] 11 mmol/L 10 - 20 mmol/L [facility] Calcium [Mass/Vol] 9.5 mg/dL 8.4 - 10. 2 mg/dL [facility] Chloride [Moles/Vol] 109 mmol/L High 98 - 108 mmol/L [facility] Creatinine [Mass/Vol] 0.85 mg/dL 0.40 - 1.10 [facility] GFR/1.73 sq M predicted among non-blacks MDRD (S/P/Bld) [Vol rate/Area] The eGFR should be used for monitoring renal function only and not for medication dosing. [facility] GFR/1.73 sq M.predicted CKD-EPI (S/P/Bld) [Vol rate/Area] 96 >=60 mL/min/1.73 m2 [facility] Glucose [Mass/Vol] 95 mg/dL 65 - 99 mg/dL [facility] [Moles/Vol] 23 mmol/L 21 - 32 mmol/L [facility] Interpretation and review of laboratory results Abnormal [facility] Potassium [Moles/Vol] 3.5 mmol/L 3.5 - 5.1 mmol/L [facility] Sodium [Moles/Vol] 139 mmol/L 135 - 145 mmol/L [facility] Urea nitrogen [Mass/Vol] 10 mg/dL 8 - 25 mg/dL [facility] Urea nitrogen/Creatinin e [Mass ratio] 11.8 mg/mg [facility] CBC WITH AUTO DIFFERENTIALon 07-08-2020 Basophils (Bld) [#/Vol] 0.02 10*3/uL [facility] Basophils/100 WBC (Bld) 0.2 % [facility] Eosinophils (Bld) [#/Vol] 0.04 10*3/uL [facility] Eosinophils/100 WBC (Bld) 0.5 % [facility] Erythrocyte distribution width (RBC) [Entitic vol] 12.0 % 11.6 - 14.8 % [facility] Hematocrit (Bld) [Volume fraction] 43.3 % 36 - 46 % [facility] Hemoglobin (Bld) [Mass/Vol] 14.7 g/dL 12 - 16 g/dL [facility] Immature granulocytes (Bld) [#/Vol] 0.00 10*3/uL [facility] Immature granulocytes/100 WBC (Bld) 0.00 % [facility] Comment on above: The IG parameter is the percentage of metamyelocytes, myelocytes and promyelocytes. An immature granulocyte count (IG) of 1% or more suggests the possibility of infection, an IG count of 3% is very likely related to an infection. Lymphocytes (Bld) [#/Vol] 2.44 10*3/uL [facility] Lymphocytes/100 WBC (Bld) 30.2 % [facility] MCH (RBC) [Entitic mass] 29.2 pg 26 - 34 pg [facility] MCHC (RBC) [Mass/Vol] 33.9 g/dL 31 - 37 g/dL [facility] MCV (RBC) [Entitic vol] 86.1 fL 80 - 100 fL [facility] Monocytes (Bld) [#/Vol] 0.40 10*3/uL [facility] Monocytes/100 WBC (Bld) 5.0 % [facility] Neutrophils (Bld) [#/Vol] 5.17 10*3/uL [facility] Neutrophils/100 WBC (Bld) 64.1 % [facility] Platelet mean volume (Bld) [Entitic vol] 11.8 fL 9.4 - 12.4 fL [facility] Platelets (Bld) [#/Vol] 228 10*3/uL [facility] RBC (Bld) [#/Vol] 5.03 10*6/uL [facility] WBC (Bld) [#/Vol] 8.07 10*3/uL [facility] CT ABDOMEN PELVIS WITH IV CO [...] TueJul 08, 2020 3:59:53 PM EST Normal [facility] Comment on above: Order Comment: Injur y/Trauma [...] from recent appendectomy. Workstation ID: [id number] [facility] EXAMINATION: CT ABDO MEN PELVIS WITH [...] acute or aggressive osseous abnormality identified. [facility] 1. No acute infectio us, inflammatory or obstructive process identified in the abdomen or pelvis. 2. Postsurgical changes from recent appendectomy. Workstation ID: [id number] [facility] Hepatic Function Panel (LFT) on 07-08-2020 Albumin [Mass/Vol] 3.8 g/dL 3.2 - 5.2 g/dL [facility] ALP [Catalytic activity/Vol] 71 U/L 40 - 140 U/L [facility] ALT [Catalytic activity/Vol] 31 U/L 14 - 65 U/L [facility] AST [Catalytic activity/Vol] 18 U/L 0 - 45 U/L [facility] Bilirubin [Mass/Vol] 0.3 mg/dL 0 - 1.3 mg/dL [facility] Bilirubin.conjugat ed [Mass/Vol] mg/dL 0 - 0.4 mg/dL [facility] Protein [Mass/Vol] 7.9 g/dL 6 - 8 g/dL [facility] Lipaseon 07-08-2020 Lipase [Catalytic activity/Vol] 95 U/L 73 - 393 U/L [facility] Otheron 07-08-2020 Interpretation and review of laboratory results Normal [facility] Extra Tube Hold for add-ons. [facility] Comment on above: Auto resulted. URINALYSISon 07-08-2020 Bacteria Auto Ql (U) Rare Abnormal None Seen /hpf [facility] Bilirubin Ql (U) Negative Negative [facility] th Clarity Refractometry automated (U) Clear Clear [facility] Color (U) Yellow Colorless, Yellow [facility] Epithelial cells.squamous Auto (Urine sed) [#/Area] 1 [facility] Glucose Auto test strip (U) [Mass/Vol] Negative Negative mg/dL [facility] Hemoglobin Auto test strip Ql (U) Negative Negative [facility] Interpretation and review of laboratory results Abnormal [facility] Ketones (U) [Mass/Vol] Negative Negative mg/dL [facility] Leukocyte esterase Auto test strip Ql (U) Negative Negative [facility] Nitrite Auto test strip Ql (U) Negative Negative [facility] pH (U) 7.5 [pH] High [facility] Protein (U) [Mass/Vol] Negative Negative mg/dL [facility] Specific gravity (U) [Rel density] 1.020 [facility] Urobilinogen (U) [Mass/Vol] <2.0 <2.0 mg/dL [facility] Microscopic examinat ion is performed on all urinalysis samples and only positive findings are reported. The test for blood on the chemical analytic portion of urinalysis may also be positive due to hemoglobinuria and myoglobinuria and if red blood cells are present they are quantified by microscopic examination. [facility] Urine Pregnancyon 07-08-2020 HCG ( test) Ql (U) Negative Negative [facility] Interpretation and review of laboratory results Normal [facility] CBC WITH AUTO DIFFERENTIALon 06-23-2020 Basophils (Bld) [#/Vol] 0.00 10*3/uL [facility] Basophils/100 WBC (Bld) 0.0 % [facility] Eosinophils (Bld) [#/Vol] 0.00 10*3/uL [facility] Eosinophils/100 WBC (Bld) 0.0 % [facility] Erythrocyte distribution width (RBC) [Entitic vol] 12.2 % 11.6 - 14.8 % [facility] Hematocrit (Bld) [Volume fraction] 37.2 % 36 - 46 % [facility] Hemoglobin (Bld) [Mass/Vol] 12.6 g/dL 12 - 16 g/dL [facility] Immature granulocytes (Bld) [#/Vol] 0.01 10*3/uL [facility] Immature granulocytes/100 WBC (Bld) 0.10 % [facility] Comment on above: The IG parameter is the percentage of metamyelocytes, myelocytes and promyelocytes. An immature granulocyte count (IG) of 1% or more suggests the possibility of infection, an IG count of 3% is very likely related to an infection. Interpretation and review of laboratory results Abnormal [facility] Lymphocytes (Bld) [#/Vol] 0.82 10*3/uL Low [facility] Lymphocytes/100 WBC (Bld) 6.8 % [facility] MCH (RBC) [Entitic mass] 29.3 pg 26 - 34 pg [facility] MCHC (RBC) [Mass/Vol] 33.9 g/dL 31 - 37 g/dL [facility] MCV (RBC) [Entitic vol] 86.5 fL 80 - 100 fL [facility] Monocytes (Bld) [#/Vol] 0.31 10*3/uL [facility] Monocytes/100 WBC (Bld) 2.6 % [facility] Neutrophils (Bld) [#/Vol] 10.86 10*3/uL High [facility] Neutrophils/100 WBC (Bld) 90.5 % [facility] Platelet mean volume (Bld) [Entitic vol] 12.1 fL 9.4 - 12.4 fL [facility] Platelets (Bld) [#/Vol] 197 10*3/uL [facility] RBC (Bld) [#/Vol] 4.30 10*6/uL [facility] ealth WBC (Bld) [#/Vol] 12.00 10*3/uL [facility] CBC WITH AUTO DIFFERENTIALon 06-22-2020 Basophils (Bld) [#/Vol] 0.02 10*3/uL [facility] Basophils/100 WBC (Bld) 0.1 % [facility] Eosinophils (Bld) [#/Vol] 0.00 10*3/uL [facility] Eosinophils/100 WBC (Bld) 0.0 % [facility] Erythrocyte distribution width (RBC) [Entitic vol] 12.0 % 11.6 - 14.8 % [facility] Hematocrit (Bld) [Volume fraction] 40.2 % 36 - 46 % [facility] Hemoglobin (Bld) [Mass/Vol] 14.0 g/dL 12 - 16 g/dL [facility] Immature granulocytes (Bld) [#/Vol] 0.02 10*3/uL [facility] Immature granulocytes/100 WBC (Bld) 0.10 % [facility] Comment on above: The IG parameter is the percentage of metamyelocytes, myelocytes and promyelocytes. An immature granulocyte count (IG) of 1% or more suggests the possibility of infection, an IG count of 3% is very likely related to an infection. Interpretation and review of laboratory results Abnormal [facility] Lymphocytes (Bld) [#/Vol] 1.20 10*3/uL [facility] Lymphocytes/100 WBC (Bld) 5.9 % [facility] MCH (RBC) [Entitic mass] 29.4 pg 26 - 34 pg [facility] MCHC (RBC) [Mass/Vol] 34.8 g/dL 31 - 37 g/dL [facility] MCV (RBC) [Entitic vol] 84.5 fL 80 - 100 fL [facility] Monocytes (Bld) [#/Vol] 0.67 10*3/uL [facility] Monocytes/100 WBC (Bld) 3.3 % [facility] Neutrophils (Bld) [#/Vol] 18.51 10*3/uL High [facility] Neutrophils/100 WBC (Bld) 90.6 % [facility] Platelet mean volume (Bld) [Entitic vol] 11.7 fL 9.4 - 12.4 fL [facility] Platelets (Bld) [#/Vol] 223 10*3/uL [facility] RBC (Bld) [#/Vol] 4.76 10*6/uL [facility] WBC (Bld) [#/Vol] 20.42 10*3/uL [facility] COVID-19, MOLECULARon 2019 SARS-COV-2 (BERG ID) Not Detected Normal Not Detected [facility] Comment on above: Result Comment: This test [...] at the following links: For Healthcare Providers: https://www.fda.gov/media/288593/download For Patients: https://www.fda.gov/media/321031/download Performed By: #### L [id number] #### [facility] [address] [address] Kenneth Arrieta M.D. [id number] COVID-19, Molecularon 2019 Interpretation and review of laboratory results Normal [facility] SARS-CoV-2 Not Detected Not Detected [facility] Comment on above: This test was [...] at the following links: For Healthcare Providers: https://www.fda.gov/media/788777/download For Patients: https://www.fda.gov/media/612776/download CT ABDOMEN PELVIS WITH IV CO NTRAST [...] seen directed medially within the central anterior gbk-hf-ougmy pelvis. No bowel obstruction. Some physiologic free [...] is directed medially within the central anterior ros-hw-cnzwn pelvis with no bowel obstruction. 3. Some [...] TueJun 22, 2020 8:48:07 PM EST Normal [facility] Comment on above: Order Comment: Injur y/Trauma [...] seen directed medially within the central anterior qpq-pf-yzfym pelvis. No bowel obstruction. Some physiologic free [...] is directed medially within the central anterior ocq-ni-oxjlj pelvis with no bowel obstruction. 3. Some physiologic free fluid in the cul-de-sac. Some small follicles seen in the ovaries bilaterally. Results were called by Dr. Clifford Wilson to Dr. ANDREY VALDEZ on 06/22/2020 at 16:43. SHINT/adrianna Workstation ID: [id number] [facility] 1. Acute appendiciti s. The appendix is seen just anterior to the right common iliac artery and is distended approaching 9 mm with wall enhancement and surrounding fatty stranding. 2. Moderate amount of fecal matter in the proximal colon. The cecum is directed medially within the central anterior rrg-fj-fprcs pelvis with no bowel obstruction. 3. Some physiologic free fluid in the cul-de-sac. Some small follicles seen in the ovaries bilaterally. Results were called by Dr. Clifford Wilson to Dr. ANDREY VALDEZ on 06/22/2020 at 16:43. GJT/dnb Workstation ID: [id number] [facility] EXAMINATION: CT ABDO MEN PELVIS WITH [...] seen directed medially within the central anterior mqg-hx-fkgap pelvis. No bowel obstruction. Some physiologic free fluid in the cul-de-sac. Some follicles seen in the ovaries bilaterally. The uterus and urinary bladder unremarkable. No acute osseous abnormality. [facility] Comprehensive Metabolic Pane kendra 06-22-2020 Albumin [Mass/Vol] 4.0 g/dL 3.2 - 5.2 g/dL [facility] ALP [Catalytic activity/Vol] 63 U/L 40 - 140 U/L [facility] ALT [Catalytic activity/Vol] 27 U/L 14 - 65 U/L [facility] Anion gap [Moles/Vol] 10 mmol/L 10 - 20 mmol/L [facility] AST [Catalytic activity/Vol] 18 U/L 0 - 45 U/L [facility] Bilirubin [Mass/Vol] 0.5 mg/dL 0 - 1.3 mg/dL [facility] Calcium [Mass/Vol] 9.1 mg/dL 8.4 - 10. 2 mg/dL [facility] Chloride [Moles/Vol] 109 mmol/L High 98 - 108 mmol/L [facility] Creatinine [Mass/Vol] 0.83 mg/dL 0.40 - 1.10 [facility] GFR/1.73 sq M predicted among non-blacks MDRD (S/P/Bld) [Vol rate/Area] The eGFR should be used for monitoring renal function only and not for medication dosing. [facility] GFR/1.73 sq M.predicted CKD-EPI (S/P/Bld) [Vol rate/Area] 98 >=60 mL/min/1.73 m2 [facility] Glucose [Mass/Vol] 96 mg/dL 65 - 99 mg/dL [facility] HCO3 [Moles/Vol] 25 mmol/L 21 - 32 mmol/L [facility] Potassium [Moles/Vol] 3.7 mmol/L 3.5 - 5.1 mmol/L [facility] Protein [Mass/Vol] 7.8 g/dL 6 - 8 g/dL [facility] Sodium [Moles/Vol] 140 mmol/L 135 - 145 mmol/L [facility] Urea nitrogen [Mass/Vol] 10 mg/dL 8 - 25 mg/dL [facility] Urea nitrogen/Creatinin e [Mass ratio] 12.0 mg/mg [facility] ECG 12-LEADon 06-22-2020 Andrey Valdez MD 2019 4:57 PM ECG 12 Lead Date/Time: 06/22/2020 4:51 PM Performed by: Andrey Valdez MD Authorized by: Andrey Valdez MD Interpreted by ED attending physician Comparison: not compared with previous ECG Rhythm: sinus rhythm BPM: 85 WI Interval: 108 QRS Interval: 82 QT Interval: 426 Clinical impression: non-specific ECG [facility] Lipaseon 06-22-2020 Lipase [Catalytic activity/Vol] 72 U/L Low 73 - 393 U/L [facility] Otheron 06-22-2020 Interpretation and review of laboratory results Abnormal [facility] URINALYSISon 06-22-2020 Bacteria Auto Ql (U) Few Abnormal None Seen /hpf [facility] Bilirubin Ql (U) Negative Negative [facility] th Clarity Refractometry automated (U) Cloudy Abnormal Clear [facility] Color (U) Yellow Colorless, Yellow [facility] Epithelial cells.squamous Auto (Urine sed) [#/Area] 3 [facility] Glucose Auto test strip (U) [Mass/Vol] Negative Negative mg/dL [facility] Hemoglobin Auto test strip Ql (U) Negative Negative [facility] Interpretation and review of laboratory results Abnormal [facility] Ketones (U) [Mass/Vol] 20 Abnormal Negative mg/dL [facility] Leukocyte esterase Auto test strip Ql (U) Negative Negative [facility] Nitrite Auto test strip Ql (U) Negative Negative [facility] pH (U) 7.0 [pH] [facility] Protein (U) [Mass/Vol] Negative Negative mg/dL [facility] Specific gravity (U) [Rel density] 1.020 [facility] Urobilinogen (U) [Mass/Vol] <2.0 <2.0 mg/dL [facility] WBC Auto (Urine sed) [#/Area] 2 [facility] Microscopic examinat ion is performed on all urinalysis samples and only positive findings are reported. The test for blood on the chemical analytic portion of urinalysis may also be positive due to hemoglobinuria and myoglobinuria and if red blood cells are present they are quantified by microscopic examination. [facility] Urine Pregnancyon 06-22-2020 HCG ( test) Ql (U) Negative Negative [facility] Interpretation and review of laboratory results Normal [facility] Vital Signs Date Time Vital Sign Value Performing Clinician Faci lity 07-08-2020 15:34-0500 BP Diastolic 79 mm[Hg] [facility] 07-08-2020 15:34-0500 BP Systolic 125 mm[Hg] [facility] 07-08-2020 15:34-0500 Pulse (Heart Rate) 81 /min [facility] 07-08-2020 15:34-0500 Pulse Oximetry 99 % [facility] 07-08-2020 15:34-0500 Respiratory Rate 16 /min [facility] 07-08-2020 13:50-0500 BMI (Body Mass Index) 20.36 kg/m2 [facility] 07-08-2020 13:50-0500 Body Temperature 98.49 [degF] Kate [facility] 07-08-2020 13:50-0500 Body weight 58.97 kg Kate [facility] 07-08-2020 13:50-0500 Height 170.2 cm Kate [facility] 06-23-2020 07:35-0500 Body Temperature 98.01 [degF] Andrey [facility] 06-23-2020 07:35-0500 BP Diastolic 68 mm[Hg] [facility] 06-23-2020 07:35-0500 BP Systolic 106 mm[Hg] [facility] 06-23-2020 07:35-0500 Pulse (Heart Rate) 75 /min [facility] 06-23-2020 07:35-0500 Pulse Oximetry 94 % [facility] 06-23-2020 07:35-0500 Respiratory Rate 16 /min [facility] 06-22-2020 14:15-0500 BMI (Body Mass Index) 20.36 kg/m2 [facility] 06-22-2020 14:15-0500 Body weight 58.[address] [facility] 06-22-2020 14:15-0500 Height 170.[address] [facility] Encounters Encounter Date Encounter Type [...] End: 07-08-2020 Emergency department patient visit PHYSICIAN [facility] Start: 07-08-2020 End: 07-08-2020 Emergency department patient visit Kate Mendoza Work Phone: [facility] Emergency Department Comment on above: Abdominal pain, unsp ecified abdominal location (Primary Dx) Start: 06-22-2020 End: 06-23-2020 Patient encounter procedure PHYSICIAN [facility] Start: 06-22-2020 End: 06-23-2020 Emergency department patient visit Andrey Valdez Work Phone: [facility] Med Surg Comment on above: Acute appendicitis w ith localized peritonitis, without perforation, abscess, or gangrene (Primary Dx) Procedures Date Procedure Procedure Detail Performing Clinician Start: 07-08-2020 Ct abdomen & pelvis w/contrast material Kate Eva [employer] Work Phone: Start: 07-08-2020 Basic metabolic 2000 panel - Serum or Plasma Kate Eva [employer] Work Phone: Start: 07-08-2020 Choriogonadotropin ( test) [Presence] in Urine Katejalen Velasquez [employer] Work Phone: Start: 07-08-2020 Complete blood count with white cell differential, automated [employer] Work Phone: Start: 07-08-2020 Complete blood count with white cell differential, manual [employer] Work Phone: Start: 07-08-2020 Hepatic function 2000 panel - Serum or Plasma [employer] Work Phone: Start: 07-08-2020 LIGHT BLUE TOP [employer] Work Phone: Start: 07-08-2020 LIGHT GREEN TOP [...] Work Phone: Start: 06-22-2020 12 lead ECG [facility] Work Phone: Start: 06-22-2020 Ct abdomen & pelvis w/contrast material [employer] Work Phone: Start: 06-22-2020 Complete blood count with white cell differential, automated Andrey Valdez Work Phone: Start: 06-22-2020 Complete blood count with white cell differential, manual Andrey Valdez Work Phone: Start: 06-22-2020 Comprehensive metabolic 2000 panel - Serum or Plasma [employer] [employer] Work Phone: Start: 06-22-2020 Lipase [Enzymatic activity/volume] in Serum or Plasma Andrey Wu Work Phone: Start: 06-22-2020 Choriogonadotropin ( test) [Presence] in Urine Andrey Valdez Work Phone: Start: 06-22-2020 Urinalysis Andrey Valdez Work Phone: Plan of Treatment Date Care Activity Detail Author Start: 04-22-2020 Influenza vaccination given Se quential Influenza Vaccine (#1) [facility] Start: 2012 Hepatitis C antibody , confirmatory test Hepatitis C Screening [facility] Start: 2009 HIV screening HIV Screening [facility] Start: 2006 Adolescent depressio n screening assessment Depression Screening (PHQ9) [facility] Start: 2005 Vaccination for tri n papillomavirus HPV Vaccines (1 - 2-dose series) [facility] Start: 1997 History and physical examination, annual for health maintenance Wellness Visit [facility] Start: 1994 Screening for malign ant neoplasm of cervix Pap Smear [facility] Start: 1994 Tetanus vaccination Tetanus: Every 1 0yrs [facility] Procedure on tissue specimen Tis kyara Exam Pathology and Cytology STAT Release Upon Ordering for 1 Occurrences starting 06/22/2020 [facility] Comment on above: Release Upon Orderin g for 1 Occurrences starting 06/22/2020 Payers Date Payer Category Payer Unknown [employer] PPO [id number] 2019-Present [id number] 2019 Unknown [id number] 1994 Unknown [id number] 1994 Unknown [id number] [id number] 1994 Unknown [id number] [id number] 1994 Unknown [id number] [id number] 1994 Unknown [id number] 2.16.840.1.055655.3.579.2.593 1994 Unknown [id number] 2.16.840.1.210173.3.579.2.593 1994 Unknown [id number] [id number] 1994 Unknown [id number] 2.16.840.1.205041.3.579.2.1258 1994 Unknown [id number] [id number] 1994 Unknown [id number] 2.16.840.1.472071.3.579.2.1258 1994 Unknown [id number] 2.16.840.1.011747.3.579.2.1258 1994 Unknown [id number] 2.16.840.1.286160.3.579.2.1258 1994 Unknown [id number] 2.16.840.1.263574.3.579.2.1258 1994 Unknown [id number] [id number]58 1994 Unknown [id number] [id number] 1959 Unknown [id number] Social History Date Type Detail Facility Start: 06-23-2020 End: 07-08-2020 Tobacco smoking status CAIS Never smoker [facility] Start: 06-23-2020 End: 07-08-2020 Tobacco use and exposure Never used [facility] Start: 06-23-2020 End: 07-08-2020 Alcohol intake Ex-drinker (finding) [facility] Sex Assigned At Not on file [facility] Exposure to SARS-CoV-2 (event) Not sure [facility] Discharge Instructions * Instructions* Magdi Salazar MD - 06/23/[address] Salazar (Hernia Repair/Gallbladder) [phone] No Lifting, no bending, no pushing May [...] A MEDICAL NATURE, CALL YOUR DOCTOR/EMERGENCY ROOM. [facility] EMERGENCY ROOM [phone] Make a follow-up appointment with your surgeon. Post Operative Instructions Dr Salazar (Hernia Repair/Gallbladder) [phone] No Lifting, no bending, no pushing May [...] A MEDICAL NATURE, CALL YOUR DOCTOR/EMERGENCY ROOM. [facility] EMERGENCY ROOM [phone] Make a follow-up appointment with your surgeon. documented in this encounter* Attachments The following attachments cannot be sent through Care Everywhere. * Abdominal Pain (Uzbek) documented in this encounter Assessments Diagnosis Acute appendicitis with localized peritonitis, without perforation, abscess, or gangrene- Primary Diagnosis Abdominal pain, unspecified abdominal location- Primary Advance Directives No Advanced Directives Records FoundDocuments on File Type Date Recorded Patient Lung Splitter Expl anation Advance Directives and Livin g Will 06/22/2020 1:08 PM Documents on File Type Date Recorded Patient Lung Splitter Expl anation Advance Directives and Livin g [...] ion and content) Patient's name Mele Doll, [facility] #[id number] Age [age] years old date of 1995 [...] (unrecognized secti on and content) [facility] ED Attending Note: NAME: Mele Doll 24 y.o. CSN: [id number] PCP: Physician No History: Chief Complaint: Abdominal [...] file Gets together: Not on file Attends sabianism service: Not on file Active member of [...] Procedure Abnormality Status --------- ------ CBC Auto Differential[[id number]] Abnormal Final result Please view results for [...] a case request, and contact the nurse engineer system administrator formulation chemist. Patient is to be kept n.p.o. He would like 3.375 of Zosyn given to the patient. He would like the patient admitted to his service. Clinical Impression: 1. Acute appendicitis with localized peritonitis, without perforation, abscess, or gangrene Disposition: hospitalize to Operating Room Andrey Valdez M.D. Attending Physician [facility] Emergency Departments 06/22/2020 Portions of [...] y.o. : 1995 VISIT DATE: 07/08/2020 CSN: [id number] PCP: Physician No Chief Complaint Patient presents [...] file Gets together: Not on file Attends sabianism service: Not on file Active member of [...] Colorless, Yellow Clarity, Urine Clear Clear Specific [place] 1.020 1.005 - 1.025 pH, Urine 7.5 [...] Magdi Salazar MD. Specialty: General Surgery [facility] [id number] Contact information for after-discharge care Follow-up information [...] change in drainage on op-sites. MELE DOLL [facility] [id number] [facility] [id number] 1995 DATE 06/22/2020 OPERATIVE REPORT SURGEON MAGDI [...] utilizing 0 Ethibond with an open technique. Dzcgle-fj-itazj suture was placed after complete desufflation of [...] appendicitis. MAGDI SALAZAR MD D 06/22/2020 20:33 [id number] T 06/23/2020 01:38 VMT/MODL Umbilical dressing saturated with light pink serous drainage.Pubic dressing 1/2 saturated with shadow of pink drainage. Brief Post Operative Note Patient Name: Mele Doll : 1995 (24 y.o.) Date of Service: 06/22/2020 CSN: [id number] Procedure(s): APPENDECTOMY LAPAROSCOPIC Pre-Operative Diagnoses: RIGHT SIDED ABDOMINAL PAIN - ACUTE APPENDICITIS Post-Operative Diagnoses: ACUTE RETROCECAL APPENDICITIS Surgeon(s) and Role: * Magdi Salazar MD - Primary Anesthesiologist: Jaylin Buckley MD [employer] Sanding Machine Operator: Tanisha Varghese RN Scrub Person Assist: Jadyn [...] previous ECG Rhythm: sinus rhythm BPM: 85 WI Interval: 108 QRS Interval: 82 QT Interval: 426 Clinical impression: non-specific ECG documented in this encounter INFORMATION SOURCE (unrecogn ized section and content) DATE CREATED AUTHOR 07/13/2020 [facility] DATE CREATED AUTHOR AUTHOR'S ORGANIZ ATION 01/28/2023 [facility] DATE CREATED AUTHOR AUTHOR'S ORGANIZ ATION 04/24/2024 [facility] EPIC FOR RECORDS PERTAINING TO PATIENTS [...] BE BASED ON THE PRIMARY CLINICAL RECORDS. [employer] provides no warranty or guarantee of the accuracy or completeness of information in this document.
[2024-05-03 12:13] VITALS: BP 128/68; PULSE 120
== END 2024-05-03 12:56 | disposition home or self-care (01) ==
LOC: FBCO 07:06 → FBC 12:02
PROVIDERS: PCP Obstetrics & Gynecology; Visit Provider Obstetrics & Gynecology
DX: O26.893 Other specified pregnancy related conditions, third trimester (principal)
CPT/HCPCS: 59025

== ENCOUNTER 2024-05-08 07:04 | Outpatient (OUT) | payer BC, SELFPAY ==
--- OUTSIDE RECORDS SUMMARY | 2024-05-08 07:07 | XMS_ITS | CCD ---
Author Organization [facility] Care Team Providers Care Plating Inspector Name Role Phone No, Physician Primary Care [...] 01-19-2023 HCG QUANT 67 mIU/mL Normal [facility] Comment on above: Performed By: #### P REGQNT #### [facility] [address] [place] [address] Dr. Tammi Fleming HCG RANGE SEE BELOW Normal [facility] Comment on above: Result Comment: 5-50 0.2-1 WEEK 50-500 1-2 WEEKS 100-5,000 2-3 WEEKS 500-10,000 3-4 WEEKS 1,000-50,000 4-5 WEEKS 10,000-100,000 5-6 WEEKS 15,000-200,000 6-8 WEEKS 10,000-100,000 2-3 MONTHS Performed By: #### P REGQNT #### [facility] [address] [place] [address] Dr. Tammi Fleming PREG QUANT HCGon 01-10-2023 HCG QUANT 231 mIU/mL Normal [facility] Comment on above: Performed By: #### P REGQNT #### [facility] [address] [place] [address] Dr. Tammi Fleming HCG RANGE SEE BELOW Normal [facility] Comment on above: Result Comment: 5-50 0.2-1 WEEK 50-500 1-2 WEEKS 100-5,000 2-3 WEEKS 500-10,000 3-4 WEEKS 1,000-50,000 4-5 WEEKS 10,000-100,000 5-6 WEEKS 15,000-200,000 6-8 WEEKS 10,000-100,000 2-3 MONTHS Performed By: #### P REGQNT #### [facility] [address] [place] [address] Dr. Tammi Fleming CBC AUTO DIFFon 01-04-2023 BASO # 0.0 103/ul Normal 0.0-0.1 [facility] Comment on above: Performed By: #### C BC #### [facility] [address] [place] [address] Dr. Tammi Fleming Basophils/100 WBC (Bld) 0.3 % Normal 0.2-2.0 [facility] Comment on above: Performed By: #### C BC #### [facility] [address] [place] [address] Dr. Tammi Fleming EO # 0.1 103/ul Normal 0.0-0.7 [facility] Comment on above: Performed By: #### C BC #### [facility] [address] [place] [address] Dr. Tammi Fleming Eosinophils/100 WBC (Bld) 0.8 % Critically low 0.9-7.0 [facility] Comment on above: Performed By: #### C BC #### [facility] [address] [place] [address] Dr. Tammi Fleming Erythrocyte distribution width (RBC) [Ratio] 12.0 % Normal 11.0-15.0 [facility] Comment on above: Performed By: #### C BC #### [facility] [address] [place] [address] Dr. Tammi Fleming Hematocrit (Bld) [Volume fraction] 42.6 % Normal 36.0-48.0 [facility] Comment on above: Performed By: #### C BC #### [facility] [address] [place] [address] Dr. Tammi Fleming Hemoglobin (Bld) [Mass/Vol] 14.5 g/dL Normal 12.0-16.0 [facility] Comment on above: Performed By: #### C BC #### [facility] [address] [place] [address] Dr. Tammi Fleming IG # 0.02 10e3/ul Normal 0.00-0.03 [facility] Comment on above: Performed By: #### C BC #### [facility] [address] [place] [address] Dr. Tammi Fleming IG % 0.3 % Normal 0.0-0.5 [facility] Comment on above: Performed By: #### C BC #### [facility] [address] [place] [address] Dr. Tammi Fleming LYMPH # 1.6 103/ul Normal 1.2-3.8 [facility] Comment on above: Performed By: #### C BC #### [facility] [address] [place] [address] Dr. Tammi Fleming Lymphocytes/100 WBC (Bld) 19.9 % Critically low 20.5-60.0 [facility] Comment on above: Performed By: #### C BC #### [facility] [address] [place] [address] Dr. Tammi Fleming MANUAL DIFF REQ NO Normal [facility] Comment on above: Performed By: #### C BC #### [facility] [address] [place] [address] Dr. Tammi Fleming MCH (RBC) [Entitic mass] 29.8 pg Normal 26.7-34.0 [facility] Comment on above: Performed By: #### C BC #### [facility] [address] [place] [address] Dr. Tammi Fleming MCHC (RBC) [Mass/Vol] 34.0 g/dL Normal 29.9-35.2 [facility] Comment on above: Performed By: #### C BC #### [facility] [address] [place] [address] Dr. Tammi Fleming MCV (RBC) [Entitic vol] 87.7 fL Normal 81.0-99.0 [facility] Comment on above: Performed By: #### C BC #### [facility] [address] [place] [address] Dr. Tammi Fleming MONO # 0.4 103/ul Normal 0.3-0.8 [facility] Comment on above: Performed By: #### C BC #### [facility] [address] [place] [address] Dr. Tammi Fleming Monocytes/100 WBC (Bld) 5.0 % Normal 1.7-12.0 [facility] Comment on above: Performed By: #### C BC #### [facility] [address] [place] [address] Dr. Tammi Fleming NEUT # 5.8 103/ul Normal 1.4-6.5 [facility] Comment on above: Performed By: #### C BC #### [facility] [address] [place] [address] Dr. Tammi Fleming Neutrophils/100 WBC (Bld) 73.7 % Normal 43.0-75.0 [facility] Comment on above: Performed By: #### C BC #### [facility] [address] [place] [address] Dr. Tammi Fleming Platelet mean volume (Bld) [Entitic vol] 12.1 fL Normal 9.5-13.5 [facility] Comment on above: Performed By: #### C BC #### [facility] [address] [place] [address] Dr. Tammi Fleming PLT 184 103/ul Normal 150-450 [facility] Comment on above: Performed By: #### C BC #### [facility] [address] [place] [address] Dr. Tammi Fleming RBC 4.86 106/ul Normal 4.20-5.40 [facility] Comment on above: Performed By: #### C BC #### [facility] [address] [address] [address] Tammi Fleming WBC 7.9 103/ul Normal 4.0-11.0 [facility] Comment on above: Performed By: #### C BC #### [facility] [address] [address] [address] Tammi Fleming ER URINE PROFILEon 3 Bilirubin Ql (U) Negative Normal NEGATIVE [facility] Comment on above: Performed By: #### Angela CHRISTIE UMICRO #### [facility] [address] [address] [address] Tammi Fleming Clarity (U) CLEAR Normal CLEAR [facility] Comment on above: Performed By: #### Angela CHRISTIE UMICRO #### [facility] [address] [place] [address] Dr. Tammi Fleming Color (U) LT. YELLOW Normal YELLOW [facility] Comment on above: Performed By: #### Angela CHRISTIE UMICRO #### [facility] [address] [place] [address] Dr. Tammi Fleming ERUAHD A micrscopic examina tion will be performed if indicated. Normal [facility] Comment on above: Performed By: #### Angela CHRISTIE UMICRO #### [facility] [address] [place] [address] Dr. Tammi Fleming Glucose Ql (U) Negative Normal NEGATIVE [facility] Comment on above: Performed By: #### Angela CHRISTIE UMICRO #### [facility] [address] [place] [address] Dr. Tammi Fleming Hemoglobin Ql (U) LARGE Abnormal NEGATIVE [facility] Comment on above: Performed By: #### Angela CHRISTIE UMICRO #### [facility] [address] [place] [address] Dr. Tammi Fleming Ketones Ql (U) Negative Normal NEGATIVE [facility] Comment on above: Performed By: #### Angela CHRISTIE UMICRO #### [facility] [address] [place] [address] Dr. Tammi Fleming LEUKOCYTES Negative Normal NEGATIVE [facility] Comment on above: Performed By: #### CIRILO SORTO #### [facility] [address] [place] [address] Dr. Tammi Fleming Nitrite Ql (U) Negative Normal NEGATIVE [facility] Comment on above: Performed By: #### NAGA SORTORO #### [facility] [address] [place] [address] Dr. Tammi Fleming pH (U) 7.0 [pH] Normal 5-9 [facility] Comment on above: Performed By: #### CIRILO SORTO #### [facility] [address] [place] [address] Dr. Tammi Fleming SPEC GRAVITY <=1.005 Abnormal 1.005-<=1.025 [facility] Comment on above: Performed By: #### NAGA SORTORO #### [facility] [address] [place] [address] Dr. Tammi Fleming UA PROTEIN Negative Normal NEGATIVE/ TRACE [facility] Comment on above: Performed By: #### CIRILO SORTO #### [facility] [address] [place] [address] Dr. Tammi Fleming UR MICRO IND INDICATED Normal [facility] Comment on above: Performed By: #### NAGA SORTORO #### [facility] [address] [place] [address] Dr. Tammi Fleming Urobilinogen Qn (U) 0.2 {Elder'U}/dL Normal 0.2 - 1.0 [facility] Comment on above: Performed By: #### NAGA SORTORO #### [facility] [address] [place] [address] Dr. Tammi Fleming PREG QUANT HCGon 01-04-2023 HCG QUANT 4523 mIU/mL Normal [facility] Comment on above: Performed By: #### P REGQNT #### [facility] [address] [place] [address] Dr. Tammi Fleming HCG RANGE SEE BELOW Normal [facility] Comment on above: Result Comment: 5-50 0.2-1 WEEK 50-500 1-2 WEEKS 100-5,000 2-3 WEEKS 500-10,000 3-4 WEEKS 1,000-50,000 4-5 WEEKS 10,000-100,000 5-6 WEEKS 15,000-200,000 6-8 WEEKS 10,000-100,000 2-3 MONTHS Performed By: #### P REGQNT #### [facility] [address] [place] [address] Dr. Tammi Fleming URINE MICROSCOPIC ONLYon BACTERIA TRACE Abnormal NONE SEEN [facility] Comment on above: Performed By: #### Angela CHRISTIE UMICRO #### [facility] [address] [place] [address] Dr. Tammi Fleming Bacteria identified Cx Nom (U) NOT INDICATED Normal [facility] Comment on above: Performed By: #### Angela CHRISTIE UMICRO #### [facility] [address] [place] [address] Dr. Tammi Fleming CAST NONE SEEN Normal NONE SEEN [facility] Comment on above: Performed By: #### Angela CHRISTIE UMICRO #### [facility] [address] [place] [address] Dr. Tammi Fleming Crystals LM Nom (Urine sed) NONE SEEN Normal NONE SEEN [facility] Comment on above: Performed By: #### Angela CHRISTIE UMICRO #### [facility] [address] [place] [address] Dr. Tammi Fleming Epithelial cells LM Ql (Urine sed) NONE SEEN Normal NONE SEEN /RARE [facility] Comment on above: Performed By: #### E RUR, UMICRO #### [facility] [address] [place] [address] Dr. Tammi Fleming MUCOUS NONE SEEN Normal NONE SEEN [facility] Comment on above: Performed By: #### E JENNIFERR, UMICRO #### [facility] [address] [place] [address] Dr. Tammi Fleming RBC 2-5 Abnormal 0-2 [facility] Comment on above: Performed By: #### E CIRILO CHRISTIE #### [facility] [address] [place], [place] [address] Dr. Tammi Fleming WBC NONE SEEN Normal NONE SEEN [facility] Comment on above: Performed By: #### E CIRILO CHRISTIE #### [facility] [address] [place], [place] [address] Dr. Tammi Fleming US PREG TVon 01-04-2023 [...] DEYVI FELDER Date: 2023-01-04 18:08 Normal [facility] BMPon 07-08-2020 Anion gap [Moles/Vol] 11 mmol/L 10 - 20 mmol/L [facility] Calcium [Mass/Vol] 9.5 mg/dL 8.4 - 10. 2 mg/dL [facility] Chloride [Moles/Vol] 109 mmol/L High 98 - 108 mmol/L [facility] Creatinine [Mass/Vol] 0.85 mg/dL 0.40 - 1.10 [facility] GFR/1.73 sq M predicted among non-blacks MDRD (S/P/Bld) [Vol rate/Area] The eGFR should be used for monitoring renal function only and not for medication dosing. [facility] GFR/1.73 sq M.predicted CKD-EPI (S/P/Bld) [Vol rate/Area] 96 >=60 mL/min/1.73 m2 [facility] Glucose [Mass/Vol] 95 mg/dL 65 - 99 mg/dL [facility] HCO3 [Moles/Vol] 23 mmol/L 21 - 32 mmol/L [facility] Interpretation and review of laboratory results Abnormal [facility] Potassium [Moles/Vol] 3.5 mmol/L 3.5 - 5.1 mmol/L [facility] Sodium [Moles/Vol] 139 mmol/L 135 - 145 mmol/L [facility] Urea nitrogen [Mass/Vol] 10 mg/dL 8 - 25 mg/dL [facility] Urea nitrogen/Creatinin e [Mass ratio] 11.8 mg/mg [facility] CBC WITH AUTO DIFFERENTIALon 07-08-2020 Basophils (Bld) [#/Vol] 0.02 10*3/uL [facility] Basophils/100 WBC (Bld) 0.2 % [facility] Eosinophils (Bld) [#/Vol] 0.04 10*3/uL [facility] Eosinophils/100 WBC (Bld) 0.5 % [facility] Erythrocyte distribution width (RBC) [Entitic vol] 12.0 % 11.6 - 14.8 % [facility] Hematocrit (Bld) [Volume fraction] 43.3 % 36 - 46 % [facility] Hemoglobin (Bld) [Mass/Vol] 14.7 g/dL 12 - 16 g/dL [facility] Immature granulocytes (Bld) [#/Vol] 0.00 10*3/uL [facility] Immature granulocytes/100 WBC (Bld) 0.00 % [facility] Comment on above: The IG parameter is the percentage of metamyelocytes, myelocytes and promyelocytes. An immature granulocyte count (IG) of 1% or more suggests the possibility of infection, an IG count of 3% is very likely related to an infection. Lymphocytes (Bld) [#/Vol] 2.44 10*3/uL [facility] Lymphocytes/100 WBC (Bld) 30.2 % [facility] MCH (RBC) [Entitic mass] 29.2 pg 26 - 34 pg [facility] MCHC (RBC) [Mass/Vol] 33.9 g/dL 31 - 37 g/dL [facility] MCV (RBC) [Entitic vol] 86.1 fL 80 - 100 fL [facility] Monocytes (Bld) [#/Vol] 0.40 10*3/uL [facility] Monocytes/100 WBC (Bld) 5.0 % [facility] Neutrophils (Bld) [#/Vol] 5.17 10*3/uL [facility] Neutrophils/100 WBC (Bld) 64.1 % [facility] Platelet mean volume (Bld) [Entitic vol] 11.8 fL 9.4 - 12.4 fL [facility] Platelets (Bld) [#/Vol] 228 10*3/uL [facility] RBC (Bld) [#/Vol] 5.03 10*6/uL [facility] WBC (Bld) [#/Vol] 8.07 10*3/uL [facility] CT ABDOMEN PELVIS WITH IV CO [...] TueJul 08, 2020 3:59:53 PM EST Normal [facility] Comment on above: Order Comment: [...] changes from recent appendectomy. Workstation ID: [id number] [facility] EXAMINATION: CT ABDO MEN PELVIS WITH IV [...] No acute or aggressive osseous abnormality identified. [facility] 1. No acute infectio us, inflammatory or obstructive process identified in the abdomen or pelvis. 2. Postsurgical changes from recent appendectomy. Workstation ID: [id number] [facility] Hepatic Function Panel (LFT) on 07-08-2020 Albumin [Mass/Vol] 3.8 g/dL 3.2 - 5.2 g/dL [facility] ALP [Catalytic activity/Vol] 71 U/L 40 - 140 U/L [facility] ALT [Catalytic activity/Vol] 31 U/L 14 - 65 U/L [facility] AST [Catalytic activity/Vol] 18 U/L 0 - 45 U/L [facility] Bilirubin [Mass/Vol] 0.3 mg/dL 0 - 1.3 mg/dL [facility] Bilirubin.conjugat ed [Mass/Vol] mg/dL 0 - 0.4 mg/dL [facility] Protein [Mass/Vol] 7.9 g/dL 6 - 8 g/dL [facility] Lipaseon 07-08-2020 Lipase [Catalytic activity/Vol] 95 U/L 73 - 393 U/L [facility] Otheron 07-08-2020 Interpretation and review of laboratory results Normal [facility] Extra Tube Hold for add-ons. [facility] Comment on above: Auto resulted. URINALYSISon 07-08-2020 Bacteria Auto Ql (U) Rare Abnormal None Seen /hpf [facility] Bilirubin Ql (U) Negative Negative [facility] th Clarity Refractometry automated (U) Clear Clear [facility] Color (U) Yellow Colorless, Yellow [facility] Epithelial cells.squamous Auto (Urine sed) [#/Area] 1 [facility] Glucose Auto test strip (U) [Mass/Vol] Negative Negative mg/dL [facility] Hemoglobin Auto test strip Ql (U) Negative Negative [facility] Interpretation and review of laboratory results Abnormal [facility] Ketones (U) [Mass/Vol] Negative Negative mg/dL [facility] Leukocyte esterase Auto test strip Ql (U) Negative Negative [facility] Nitrite Auto test strip Ql (U) Negative Negative [facility] pH (U) 7.5 [pH] High [facility] Protein (U) [Mass/Vol] Negative Negative mg/dL [facility] Specific gravity (U) [Rel density] 1.020 [facility] Urobilinogen (U) [Mass/Vol] <2.0 <2.0 mg/dL [facility] Microscopic examinat ion is performed on all urinalysis samples and only positive findings are reported. The test for blood on the chemical analytic portion of urinalysis may also be positive due to hemoglobinuria and myoglobinuria and if red blood cells are present they are quantified by microscopic examination. [facility] Urine Pregnancyon 07-08-2020 HCG ( test) Ql (U) Negative Negative [facility] Interpretation and review of laboratory results Normal [facility] CBC WITH AUTO DIFFERENTIALon 06-23-2020 Basophils (Bld) [#/Vol] 0.00 10*3/uL [facility] Basophils/100 WBC (Bld) 0.0 % [facility] Eosinophils (Bld) [#/Vol] 0.00 10*3/uL [facility] Eosinophils/100 WBC (Bld) 0.0 % [facility] Erythrocyte distribution width (RBC) [Entitic vol] 12.2 % 11.6 - 14.8 % [facility] Hematocrit (Bld) [Volume fraction] 37.2 % 36 - 46 % [facility] Hemoglobin (Bld) [Mass/Vol] 12.6 g/dL 12 - 16 g/dL [facility] Immature granulocytes (Bld) [#/Vol] 0.01 10*3/uL [facility] Immature granulocytes/100 WBC (Bld) 0.10 % [facility] Comment on above: The IG parameter is the percentage of metamyelocytes, myelocytes and promyelocytes. An immature granulocyte count (IG) of 1% or more suggests the possibility of infection, an IG count of 3% is very likely related to an infection. Interpretation and review of laboratory results Abnormal [facility] Lymphocytes (Bld) [#/Vol] 0.82 10*3/uL Low [facility] Lymphocytes/100 WBC (Bld) 6.8 % [facility] MCH (RBC) [Entitic mass] 29.3 pg 26 - 34 pg [facility] MCHC (RBC) [Mass/Vol] 33.9 g/dL 31 - 37 g/dL [facility] MCV (RBC) [Entitic vol] 86.5 fL 80 - 100 fL [facility] Monocytes (Bld) [#/Vol] 0.31 10*3/uL [facility] Monocytes/100 WBC (Bld) 2.6 % [facility] Neutrophils (Bld) [#/Vol] 10.86 10*3/uL High [facility] Neutrophils/100 WBC (Bld) 90.5 % [facility] Platelet mean volume (Bld) [Entitic vol] 12.1 fL 9.4 - 12.4 fL [facility] Platelets (Bld) [#/Vol] 197 10*3/uL [facility] RBC (Bld) [#/Vol] 4.30 10*6/uL [facility] WBC (Bld) [#/Vol] 12.00 10*3/uL [facility] CBC WITH AUTO DIFFERENTIALon 06-22-2020 Basophils (Bld) [#/Vol] 0.02 10*3/uL [facility] Basophils/100 WBC (Bld) 0.1 % [facility] Eosinophils (Bld) [#/Vol] 0.00 10*3/uL [facility] Eosinophils/100 WBC (Bld) 0.0 % [facility] Erythrocyte distribution width (RBC) [Entitic vol] 12.0 % 11.6 - 14.8 % [facility] Hematocrit (Bld) [Volume fraction] 40.2 % 36 - 46 % [facility] Hemoglobin (Bld) [Mass/Vol] 14.0 g/dL 12 - 16 g/dL [facility] Immature granulocytes (Bld) [#/Vol] 0.02 10*3/uL [facility] Immature granulocytes/100 WBC (Bld) 0.10 % [facility] Comment on above: The IG parameter is the percentage of metamyelocytes, myelocytes and promyelocytes. An immature granulocyte count (IG) of 1% or more suggests the possibility of infection, an IG count of 3% is very likely related to an infection. Interpretation and review of laboratory results Abnormal [facility] Lymphocytes (Bld) [#/Vol] 1.20 10*3/uL [facility] Lymphocytes/100 WBC (Bld) 5.9 % [facility] MCH (RBC) [Entitic mass] 29.4 pg 26 - 34 pg [facility] MCHC (RBC) [Mass/Vol] 34.8 g/dL 31 - 37 g/dL [facility] MCV (RBC) [Entitic vol] 84.5 fL 80 - 100 fL [facility] Monocytes (Bld) [#/Vol] 0.67 10*3/uL [facility] Monocytes/100 WBC (Bld) 3.3 % [facility] Neutrophils (Bld) [#/Vol] 18.51 10*3/uL High [facility] Neutrophils/100 WBC (Bld) 90.6 % [facility] Platelet mean volume (Bld) [Entitic vol] 11.7 fL 9.4 - 12.4 fL [facility] Platelets (Bld) [#/Vol] 223 10*3/uL [facility] RBC (Bld) [#/Vol] 4.76 10*6/uL [facility] WBC (Bld) [#/Vol] 20.42 10*3/uL [facility] COVID-19, MOLECULARon 2019 SARS-COV-2 (BERG ID) Not Detected Normal Not Detected [facility] Comment on above: Result Comment: [...] at the following links: For Healthcare Providers: https://www.fda.gov/media/951139/download For Patients: https://www.fda.gov/media/530507/download Performed By: #### L [id number] #### [facility] [address] [address] Kenneth Arrieta M.D. [id number] COVID-19, Molecularon 2019 Interpretation and review of laboratory results Normal [facility] SARS-CoV-2 Not Detected Not Detected [facility] Comment on above: This test was perfor [...] at the following links: For Healthcare Providers: https://www.fda.gov/media/764335/download For Patients: https://www.fda.gov/media/373691/download CT ABDOMEN PELVIS WITH IV CO NTRAST [...] seen directed medially within the central anterior ceo-wg-wnsas pelvis. No bowel obstruction. Some physiologic free [...] is directed medially within the central anterior nnz-we-vpwja pelvis with no bowel obstruction. 3. Some [...] TueJun 22, 2020 8:48:07 PM EST Normal [facility] Comment on above: Order Comment: [...] seen directed medially within the central anterior xji-yj-lbasc pelvis. No bowel obstruction. Some physiologic free [...] is directed medially within the central anterior cgx-hd-knnzn pelvis with no bowel obstruction. 3. Some physiologic free fluid in the cul-de-sac. Some small follicles seen in the ovaries bilaterally. Results were called by Dr. Clifford Wilson to Dr. ANDREY VALDEZ on 06/22/2020 at 16:43. SHINT/adrianna Workstation ID: [id number] [facility] 1. Acute appendiciti s. The appendix is seen just anterior to the right common iliac artery and is distended approaching 9 mm with wall enhancement and surrounding fatty stranding. 2. Moderate amount of fecal matter in the proximal colon. The cecum is directed medially within the central anterior quy-nb-zplio pelvis with no bowel obstruction. 3. Some physiologic free fluid in the cul-de-sac. Some small follicles seen in the ovaries bilaterally. Results were called by Dr. Clifford Wilson to Dr. ANDREY VALDEZ on 06/22/2020 at 16:43. GJT/dnb Workstation ID: [id number] [facility] EXAMINATION: CT ABDO MEN PELVIS WITH IV [...] seen directed medially within the central anterior lii-cv-jwoik pelvis. No bowel obstruction. Some physiologic free fluid in the cul-de-sac. Some follicles seen in the ovaries bilaterally. The uterus and urinary bladder unremarkable. No acute osseous abnormality. [facility] Comprehensive Metabolic Pane kendra 06-22-2020 Albumin [Mass/Vol] 4.0 g/dL 3.2 - 5.2 g/dL [facility] ALP [Catalytic activity/Vol] 63 U/L 40 - 140 U/L [facility] ALT [Catalytic activity/Vol] 27 U/L 14 - 65 U/L [facility] Anion gap [Moles/Vol] 10 mmol/L 10 - 20 mmol/L [facility] AST [Catalytic activity/Vol] 18 U/L 0 - 45 U/L [facility] Bilirubin [Mass/Vol] 0.5 mg/dL 0 - 1.3 mg/dL [facility] Calcium [Mass/Vol] 9.1 mg/dL 8.4 - 10. 2 mg/dL [facility] Chloride [Moles/Vol] 109 mmol/L High 98 - 108 mmol/L [facility] Creatinine [Mass/Vol] 0.83 mg/dL 0.40 - 1.10 [facility] GFR/1.73 sq M predicted among non-blacks MDRD (S/P/Bld) [Vol rate/Area] The eGFR should be used for monitoring renal function only and not for medication dosing. [facility] GFR/1.73 sq M.predicted CKD-EPI (S/P/Bld) [Vol rate/Area] 98 >=60 mL/min/1.73 m2 [facility] Glucose [Mass/Vol] 96 mg/dL 65 - 99 mg/dL [facility] HCO3 [Moles/Vol] 25 mmol/L 21 - 32 mmol/L [facility] Potassium [Moles/Vol] 3.7 mmol/L 3.5 - 5.1 mmol/L [facility] Protein [Mass/Vol] 7.8 g/dL 6 - 8 g/dL [facility] Sodium [Moles/Vol] 140 mmol/L 135 - 145 mmol/L [facility] Urea nitrogen [Mass/Vol] 10 mg/dL 8 - 25 mg/dL [facility] Urea nitrogen/Creatinin e [Mass ratio] 12.0 mg/mg [facility] ECG 12-LEADon 06-22-2020 Andrey Valdez MD 2019 4:57 PM ECG 12 Lead Date/Time: 06/22/2020 4:51 PM Performed by: Andrey Valdez MD Authorized by: Andrey Valdez MD Interpreted by ED attending physician Comparison: not compared with previous ECG Rhythm: sinus rhythm BPM: 85 DC Interval: 108 QRS Interval: 82 QT Interval: 426 Clinical impression: non-specific ECG [facility] Lipaseon 06-22-2020 Lipase [Catalytic activity/Vol] 72 U/L Low 73 - 393 U/L [facility] Otheron 06-22-2020 Interpretation and review of laboratory results Abnormal [facility] URINALYSISon 06-22-2020 Bacteria Auto Ql (U) Few Abnormal None Seen /hpf [facility] Bilirubin Ql (U) Negative Negative [facility] th Clarity Refractometry automated (U) Cloudy Abnormal Clear [facility] Color (U) Yellow Colorless, Yellow [facility] Epithelial cells.squamous Auto (Urine sed) [#/Area] 3 [facility] Glucose Auto test strip (U) [Mass/Vol] Negative Negative mg/dL [facility] Hemoglobin Auto test strip Ql (U) Negative Negative [facility] Interpretation and review of laboratory results Abnormal [facility] Ketones (U) [Mass/Vol] 20 Abnormal Negative mg/dL [facility] Leukocyte esterase Auto test strip Ql (U) Negative Negative [facility] Nitrite Auto test strip Ql (U) Negative Negative [facility] pH (U) 7.0 [pH] [facility] Protein (U) [Mass/Vol] Negative Negative mg/dL [facility] Specific gravity (U) [Rel density] 1.020 [facility] Urobilinogen (U) [Mass/Vol] <2.0 <2.0 mg/dL [facility] WBC Auto (Urine sed) [#/Area] 2 [facility] Microscopic examinat ion is performed on all urinalysis samples and only positive findings are reported. The test for blood on the chemical analytic portion of urinalysis may also be positive due to hemoglobinuria and myoglobinuria and if red blood cells are present they are quantified by microscopic examination. [facility] Urine Pregnancyon 06-22-2020 HCG ( test) Ql (U) Negative Negative [facility] Interpretation and review of laboratory results Normal [facility] Vital Signs Date Time Vital Sign Value Performing Clinician Faci lity 07-08-2020 15:34-0500 BP Diastolic 79 mm[Hg] [facility] 07-08-2020 15:34-0500 BP Systolic 125 mm[Hg] [facility] 07-08-2020 15:34-0500 Pulse (Heart Rate) 81 /min [facility] 07-08-2020 15:34-0500 Pulse Oximetry 99 % [facility] 07-08-2020 15:34-0500 Respiratory Rate 16 /min [facility] 07-08-2020 13:50-0500 BMI (Body Mass Index) 20.36 kg/m2 [facility] 07-08-2020 13:50-0500 Body Temperature 98.49 [degF] [facility] 07-08-2020 13:50-0500 Body weight 58.97 kg [facility] 07-08-2020 13:50-0500 Height 170.2 cm [facility] 06-23-2020 07:35-0500 Body Temperature 98.01 [degF] Andrey [facility] 06-23-2020 07:35-0500 BP Diastolic 68 mm[Hg] [facility] 06-23-2020 07:35-0500 BP Systolic 106 mm[Hg] [facility] 06-23-2020 07:35-0500 Pulse (Heart Rate) 75 /min [facility] 06-23-2020 07:35-0500 Pulse Oximetry 94 % [facility] 06-23-2020 07:35-0500 Respiratory Rate 16 /min [facility] 06-22-2020 14:15-0500 BMI (Body Mass Index) 20.36 kg/m2 [facility] 06-22-2020 14:15-0500 Body weight 58.97 kg [facility] 06-22-2020 14:15-0500 Height 170.2 cm [facility] Encounters Encounter Date Encounter Type [...] End: 07-08-2020 Emergency department patient visit PHYSICIAN [facility] Start: 07-08-2020 End: 07-08-2020 Emergency department patient visit Kate Mendoza Work Phone: [facility] Emergency Department Comment on above: Abdominal pain, unsp ecified abdominal location (Primary Dx) Start: 06-22-2020 End: 06-23-2020 Patient encounter procedure PHYSICIAN [facility] Start: 06-22-2020 End: 06-23-2020 Emergency department patient visit Andrey Valdez Work Phone: [facility] Med Surg Comment on above: Acute appendicitis w ith localized peritonitis, without perforation, abscess, or gangrene (Primary Dx) Procedures Date Procedure Procedure Detail Performing Clinician Start: 07-08-2020 Ct abdomen & pelvis w/contrast material Kate [employer] Work Phone: Start: 07-08-2020 Basic metabolic 2000 panel - Serum or Plasma Kate Eva [employer] Work Phone: Start: 07-08-2020 Choriogonadotropin ( test) [Presence] in Urine Katejalen Velasquez [employer] Work Phone: Start: 07-08-2020 Complete blood count with white cell differential, automated [employer] Work Phone: Start: 07-08-2020 Complete blood count with white cell differential, manual [employer] Work Phone: Start: 07-08-2020 Hepatic function 2000 panel - Serum or Plasma [employer] Work Phone: Start: 07-08-2020 LIGHT BLUE TOP [employer] Work Phone: Start: 07-08-2020 LIGHT GREEN TOP [...] Work Phone: Start: 06-22-2020 12 lead ECG [employer] Work Phone: Start: 06-22-2020 Ct abdomen & pelvis w/contrast material [employer] Work Phone: Start: 06-22-2020 Complete blood count with white cell differential, automated Andrey Valdez Work Phone: Start: 06-22-2020 Complete blood count with white cell differential, manual Andrey Valdez Work Phone: Start: 06-22-2020 Comprehensive metabolic 2000 panel - Serum or Plasma [employer] Work Phone: Start: 06-22-2020 Lipase [Enzymatic activity/volume] in Serum or Plasma Andrey Wu Work Phone: Start: 06-22-2020 Choriogonadotropin ( test) [Presence] in Urine Andrey Valdez Work Phone: Start: 06-22-2020 Urinalysis Andrey Valdez Work Phone: Plan of Treatment Date Care Activity Detail Author Start: 04-22-2020 Influenza vaccination given Se quential Influenza Vaccine (#1) [facility] Start: 2012 Hepatitis C antibody , confirmatory test Hepatitis C Screening [facility] Start: 2009 HIV screening HIV Screening [facility] Start: 2006 Adolescent depressio n screening assessment Depression Screening (PHQ9) [facility] Start: 2005 Vaccination for tri n papillomavirus HPV Vaccines (1 - 2-dose series) [facility] Start: 1997 History and physical examination, annual for health maintenance Wellness Visit [facility] Start: 1994 Screening for malign ant neoplasm of cervix Pap Smear [facility] Start: 1994 Tetanus vaccination Tetanus: Every 1 0yrs [facility] Procedure on tissue specimen Tis kyara Exam Pathology and Cytology STAT Release Upon Ordering for 1 Occurrences starting 06/22/2020 [facility] Comment on above: Release Upon Orderin g for 1 Occurrences starting 06/22/2020 Payers Date Payer Category Payer Unknown [employer] PPO [id number] 2019-Present [id number] 2019 Unknown [id number] 1994 Unknown [id number] 1994 Unknown [id number] 1994 Unknown [id number] 1994 Unknown [id number] [id number] 1994 Unknown [id number] [id number]3 1994 Unknown [id number] [id number]3 1994 Unknown [id number] [id number] 1994 Unknown [id number] [id number]58 1994 Unknown [id number] 2.16.840.1.236389.3.579.2.1258 1994 Unknown [id number] 2.16.840.1.628954.3.579.2.1258 1994 Unknown [id number] 2.16.840.1.765081.3.579.2.1258 1994 Unknown [id number] 2.16.840.1.235525.3.579.2.1258 1994 Unknown [id number] 2.16.840.1.120590.3.579.2.1258 1994 Unknown [id number] [id number]58 1994 Unknown [id number] [id number] 1959 Unknown [id number] Social History Date Type Detail Facility Start: 06-23-2020 End: 07-08-2020 Tobacco smoking status MSIS Never smoker [facility] Start: 06-23-2020 End: 07-08-2020 Tobacco use and exposure Never used [facility] Start: 06-23-2020 End: 07-08-2020 Alcohol intake Ex-drinker (finding) [facility] Sex Assigned At Not on file [facility] Exposure to SARS-CoV-2 (event) Not sure [facility] Discharge Instructions * Instructions* Magdi Salazar MD - 06/23/[address] Salazar (Hernia Repair/Gallbladder) [phone] No Lifting, no bending, no pushing May [...] A MEDICAL NATURE, CALL YOUR DOCTOR/EMERGENCY ROOM. [facility] EMERGENCY ROOM [phone] Make a follow-up appointment with your surgeon. Post Operative Instructions Dr Salazar (Hernia Repair/Gallbladder) [phone] No Lifting, no bending, no pushing May [...] A MEDICAL NATURE, CALL YOUR DOCTOR/EMERGENCY ROOM. [facility] EMERGENCY ROOM [phone] Make a follow-up appointment with your surgeon. documented in this encounter* Attachments The following attachments cannot be sent through Care Everywhere. * Abdominal Pain (Khmer) documented in this encounter Assessments Diagnosis Acute appendicitis with localized peritonitis, without perforation, abscess, or gangrene- Primary Diagnosis Abdominal pain, unspecified abdominal location- Primary Advance Directives No Advanced Directives Records FoundDocuments on File Type Date Recorded Patient Alteration Inspector Expl anation Advance Directives and Livin g Will 06/22/2020 1:08 PM Documents on File Type Date Recorded Patient Alteration Inspector Expl anation Advance Directives and Livin g [...] ion and content) Patient's name Mele Doll, [facility] #[id number] Age [age] years old date of 1995 [...] ED Notes (unrecognized secti on and content) [facility] ED Attending Note: NAME: Mele Doll 24 y.o. CSN: [id number] PCP: Physician No History: Chief Complaint: Abdominal [...] file Gets together: Not on file Attends moravian service: Not on file Active member of [...] Procedure Abnormality Status --------- ------ CBC Auto Differential[[id number]] Abnormal Final result Please view results for [...] a case request, and contact the nurse windows administrator incident response analyst. Patient is to be kept n.p.o. He would like 3.375 of Zosyn given to the patient. He would like the patient admitted to his service. Clinical Impression: 1. Acute appendicitis with localized peritonitis, without perforation, abscess, or gangrene Disposition: hospitalize to Operating Room Andrey Valdez M.D. Attending Physician [facility] Emergency Departments 06/22/2020 Portions of this [...] and stable at dc. ED PROVIDER NOTE [facility] EMERGENCY DEPARTMENT NAME: Mele Doll AGE: 24 y.o. : 1995 VISIT DATE: 07/08/2020 CSN: [id number] PCP: Physician No Chief Complaint Patient presents [...] file Gets together: Not on file Attends moravian service: Not on file Active member of [...] Colorless, Yellow Clarity, Urine Clear Clear Specific [place] 1.020 1.005 - 1.025 pH, Urine 7.5 [...] Magdi Salazar MD. Specialty: General Surgery [facility] [id number] Contact information for after-discharge care Follow-up information [...] change in drainage on op-sites. MELE DOLL [facility] [id number] [facility] [id number] 1995 DATE 06/22/2020 OPERATIVE REPORT SURGEON MAGDI [...] utilizing 0 Ethibond with an open technique. [id number] suture was placed after complete desufflation of [...] appendicitis. MAGDI SALAZAR MD D 06/22/2020 20:33 [id number] T 06/23/2020 01:38 VMT/MODL Umbilical dressing saturated with light pink serous drainage.Pubic dressing 1/2 saturated with shadow of pink drainage. Brief Post Operative Note Patient Name: Mele Doll : 1995 (24 y.o.) Date of Service: 06/22/2020 CSN: [id number] Procedure(s): APPENDECTOMY LAPAROSCOPIC Pre-Operative Diagnoses: RIGHT SIDED ABDOMINAL PAIN - ACUTE APPENDICITIS Post-Operative Diagnoses: ACUTE RETROCECAL APPENDICITIS Surgeon(s) and Role: * Magdi Salazar MD - Primary Anesthesiologist: Jaylin Buckley MD Claim Processor: Tanisha Varghese RN Scrub Person Assist: Jadyn [...] previous ECG Rhythm: sinus rhythm BPM: 85 DC Interval: 108 QRS Interval: 82 QT Interval: 426 Clinical impression: non-specific ECG documented in this encounter INFORMATION SOURCE (unrecogn ized section and content) DATE CREATED AUTHOR 07/13/2020 [facility] DATE CREATED AUTHOR AUTHOR'S ORGANIZ ATION 01/28/2023 [facility] DATE CREATED AUTHOR AUTHOR'S ORGANIZ ATION 04/24/2024 [facility] EPIC FOR RECORDS PERTAINING TO [...] BE BASED ON THE PRIMARY CLINICAL RECORDS. [employer] provides no warranty or guarantee of the accuracy or completeness of information in this document.
--- NOTE | 2024-05-08 11:42 | US_ITS ---
[address] [address] Patient Name: MELE DOLL MRN: [id number] date: 1995 Sex: F Assigned Patient Location: US Current Patient Location: US Accession/Order Number: [id number] Exam Date: 05/08/2024 11:45 Report Date: 05/08/2024 13:42 At the request of: ELLEN COLIN Procedure: US OB growth EXAMINATION: US OB growth HISTORY: sga COMPARISON: 04/25/24. FINDINGS: Heart Rate: 138.46 bpm Amniotic Fluid Volume: 14.4 cm, largest fluid pocket 5.9 cm Number: 1 Position: Breech presentation, longitudinal lie BIOMETRY: BPD: 8.77 cm; 35 weeks, 3 days; 37.80 % HC: 33.46 cm; 38 weeks 2 days; 72.30 % AC: 32.85 cm; 36 weeks, 5 days; 77.10 % FL: 6.90 cm; 35 weeks, 3 days; 27.50 % EFW: 2937.27 g; 60.10 %, 6 lb 8 oz FL/AC: 21.01 FL/BPD: 78.74 HC/AC: 1.02 GESTATIONAL AGE: Age by EDC: 36 weeks 1 day ROSEMARIE by EDC: 2024-06-04 Age by US: 36 weeks 3 days ROSEMARIE by US: 2024-06-02 US/US OB growth IMPRESSION: Normal interval growth Electronically authenticated by: BRAD WILLETT Date: 05/08/2024 13:42
--- NOTE | 2024-05-08 11:44 | US_ITS ---
[address] [address] Patient Name: MELE DOLL MRN: [id number] date: 1995 Sex: F Assigned Patient Location: US Current Patient Location: Accession/Order Number: [id number] Exam Date: 05/08/2024 11:45 Report Date: 05/08/2024 13:34 At the request of: ELLEN COLIN Procedure: US OB BPP w non-stress EXAMINATION: US OB BPP w non-stress HISTORY: sga COMPARISON: No relevant comparison available. TECHNIQUE: Ultrasound biophysical profile was performed in the radiology department. non-reactive stress testing was performed by nursing staff in the birthing center. FINDINGS: BREATHING MOVEMENTS: 2 GROSS BODY MOVEMENTS: 2 TONE: 2 QUALITATIVE AMNIOTIC FLUID VOLUME: 2 PRESENTATION: CEPHALIC HEART RATE: 138.46 bpm AMNIOTIC FLUID VOLUME: 14.4 cm GESTATIONAL AGE: 36 weeks 1 day US/US OB BPP w non-stress IMPRESSION: Total biophysical profile score: 8 Electronically authenticated by: BRAD WILLETT Date: 05/08/2024 13:34
[2024-05-08 12:09] VITALS: BP 124/67; PULSE 120
== END 2024-05-08 12:35 | disposition home or self-care (01) ==
LOC: US 07:04 → FBC 11:37
PROVIDERS: PCP Obstetrics & Gynecology; Visit Provider Physician Assistant
DX: O26.843 Uterine size-date discrepancy, third trimester (principal); Z3A.36 36 weeks gestation of pregnancy
CPT/HCPCS: 76816; 76818; 87081; 87150

== ENCOUNTER 2024-05-08 20:22 | Outpatient (REF) | payer BC, SELFPAY ==
--- OUTSIDE RECORDS SUMMARY | 2024-05-08 20:29 | XMS_ITS | CCD ---
Author Organization [facility] Care Team Providers Care [employer] Applier Name Role Phone No, Physician Primary Care [...] HCGon 01-19-2023 HCG QUANT 67 mIU/mL Normal [facility] Comment on above: Performed By: #### P REGQNT #### [facility] [address] [place] [address] Dr. Tammi Fleming HCG RANGE SEE BELOW Normal [facility] Comment on above: Result Comment: 5-50 0.2-1 WEEK 50-500 1-2 WEEKS 100-5,000 2-3 WEEKS 500-10,000 3-4 WEEKS 1,000-50,000 4-5 WEEKS 10,000-100,000 5-6 WEEKS 15,000-200,000 6-8 WEEKS 10,000-100,000 2-3 MONTHS Performed By: #### P REGQNT #### [facility] [address] [place] [address] Dr. Tammi Fleming PREG QUANT HCGon 01-10-2023 HCG QUANT 231 mIU/mL Normal [facility] Comment on above: Performed By: #### P REGQNT #### [facility] [address] [place] [address] Dr. Tammi Fleming HCG RANGE SEE BELOW Normal [facility] Comment on above: Result Comment: 5-50 0.2-1 WEEK 50-500 1-2 WEEKS 100-5,000 2-3 WEEKS 500-10,000 3-4 WEEKS 1,000-50,000 4-5 WEEKS 10,000-100,000 5-6 WEEKS 15,000-200,000 6-8 WEEKS 10,000-100,000 2-3 MONTHS Performed By: #### P REGQNT #### [facility] [address] [place] [address] Dr. Tammi Fleming CBC AUTO DIFFon 01-04-2023 BASO # 0.0 103/ul Normal 0.0-0.1 [facility] Comment on above: Performed By: #### C BC #### [facility] [address] [place] [address] Dr. Tammi Fleming Basophils/100 WBC (Bld) 0.3 % Normal 0.2-2.0 [facility] Comment on above: Performed By: #### C BC #### [facility] [address] [place] [address] Dr. Tammi Fleming EO # 0.1 103/ul Normal 0.0-0.7 [facility] Comment on above: Performed By: #### C BC #### [facility] [address] [place] [address] Dr. Tammi Fleming Eosinophils/100 WBC (Bld) 0.8 % Critically low 0.9-7.0 [facility] Comment on above: Performed By: #### C BC #### [facility] [address] [place] [address] Dr. Tammi Fleming Erythrocyte distribution width (RBC) [Ratio] 12.0 % Normal 11.0-15.0 [facility] Comment on above: Performed By: #### C BC #### [facility] [address] [place] [address] Dr. Tammi Fleming Hematocrit (Bld) [Volume fraction] 42.6 % Normal 36.0-48.0 [facility] Comment on above: Performed By: #### C BC #### [facility] [address] [place] [address] Dr. Tammi Fleming Hemoglobin (Bld) [Mass/Vol] 14.5 g/dL Normal 12.0-16.0 [facility] Comment on above: Performed By: #### C BC #### [facility] [address] [place] [address] Dr. Tammi Fleming IG # 0.02 10e3/ul Normal 0.00-0.03 [facility] Comment on above: Performed By: #### C BC #### [facility] [address] [place] [address] Dr. Tammi Fleming IG % 0.3 % Normal 0.0-0.5 [facility] Comment on above: Performed By: #### C BC #### [facility] [address] [place] [address] Dr. Tammi Fleming LYMPH # 1.6 103/ul Normal 1.2-3.8 [facility] Comment on above: Performed By: #### C BC #### [facility] [address] [place] [address] Dr. Tammi Fleming Lymphocytes/100 WBC (Bld) 19.9 % Critically low 20.5-60.0 [facility] Comment on above: Performed By: #### C BC #### [facility] [address] [place] [address] Dr. Tammi Fleming MANUAL DIFF REQ NO Normal [facility] Comment on above: Performed By: #### C BC #### [facility] [address] [place] [address] Dr. Tammi Fleming MCH (RBC) [Entitic mass] 29.8 pg Normal 26.7-34.0 [facility] Comment on above: Performed By: #### C BC #### [facility] [address] [place] [address] Dr. Tammi Fleming MCHC (RBC) [Mass/Vol] 34.0 g/dL Normal 29.9-35.2 [facility] Comment on above: Performed By: #### C BC #### [facility] [address] [place] [address] Dr. Tammi Fleming MCV (RBC) [Entitic vol] 87.7 fL Normal 81.0-99.0 [facility] Comment on above: Performed By: #### C BC #### [facility] [address] [place] [address] Dr. Tammi Fleming MONO # 0.4 103/ul Normal 0.3-0.8 [facility] Comment on above: Performed By: #### C BC #### [facility] [address] [place] [address] Dr. Tammi Fleming Monocytes/100 WBC (Bld) 5.0 % Normal 1.7-12.0 [facility] Comment on above: Performed By: #### C BC #### [facility] [address] [place] [address] Dr. Tammi Fleming NEUT # 5.8 103/ul Normal 1.4-6.5 [facility] Comment on above: Performed By: #### C BC #### [facility] [address] [place] [address] Dr. Tammi Fleming Neutrophils/100 WBC (Bld) 73.7 % Normal 43.0-75.0 [facility] Comment on above: Performed By: #### C BC #### [facility] [address] [place] [address] Dr. Tammi Fleming Platelet mean volume (Bld) [Entitic vol] 12.1 fL Normal 9.5-13.5 [facility] Comment on above: Performed By: #### C BC #### [facility] [address] [place] [address] Dr. Tammi Fleming PLT 184 103/ul Normal 150-450 [facility] Comment on above: Performed By: #### C BC #### [facility] [address] [place] [address] Dr. Tammi Fleming RBC 4.86 106/ul Normal 4.20-5.40 [facility] Comment on above: Performed By: #### C BC #### [facility] [address] [address] [address] Tammi Fleming WBC 7.9 103/ul Normal 4.0-11.0 [facility] Comment on above: Performed By: #### C BC #### [facility] [address] [address] [address] Tammi Fleming ER URINE PROFILEon 3 Bilirubin Ql (U) Negative Normal NEGATIVE [facility] Comment on above: Performed By: #### Angela CHRISTIE UMICRO #### [facility] [address] [address] [address] Tammi Fleming Clarity (U) CLEAR Normal CLEAR [facility] Comment on above: Performed By: #### Angela CHRISTIE UMICRO #### [facility] [address] [place] [address] Dr. Tammi Fleming Color (U) LT. YELLOW Normal YELLOW [facility] Comment on above: Performed By: #### Angela CHRISTIE UMICRO #### [facility] [address] [place] [address] Dr. Tammi Fleming ERUAHD A micrscopic examina tion will be performed if indicated. Normal [facility] Comment on above: Performed By: #### Angela CHRISTIE UMICRO #### [facility] [address] [place] [address] Dr. Tammi Fleming Glucose Ql (U) Negative Normal NEGATIVE [facility] Comment on above: Performed By: #### Angela CHRISTIE UMICRO #### [facility] [address] [place] [address] Dr. Tammi Fleming Hemoglobin Ql (U) LARGE Abnormal NEGATIVE [facility] Comment on above: Performed By: #### Angela CHRISTIE UMICRO #### [facility] [address] [place] [address] Dr. Tammi Fleming Ketones Ql (U) Negative Normal NEGATIVE [facility] Comment on above: Performed By: #### Angela CHRISTIE UMICRO #### [facility] [address] [place] [address] Dr. Tammi Fleming LEUKOCYTES Negative Normal NEGATIVE [facility] Comment on above: Performed By: #### CIRILO SORTO #### [facility] [address] [place] [address] Dr. Tammi Fleming Nitrite Ql (U) Negative Normal NEGATIVE [facility] Comment on above: Performed By: #### NAGA SORTORO #### [facility] [address] [place] [address] Dr. Tammi Fleming pH (U) 7.0 [pH] Normal 5-9 [facility] Comment on above: Performed By: #### CIRILO SORTO #### [facility] [address] [place] [address] Dr. Tammi Fleming SPEC GRAVITY <=1.005 Abnormal 1.005-<=1.025 [facility] Comment on above: Performed By: #### NAGA SORTORO #### [facility] [address] [place] [address] Dr. Tammi Flemnig UA PROTEIN Negative Normal NEGATIVE/ TRACE [facility] Comment on above: Performed By: #### CIRILO SORTO #### [facility] [address] [place] [address] Dr. Tammi Fleming UR MICRO IND INDICATED Normal [facility] Comment on above: Performed By: #### NAGA SORTORO #### [facility] [address] [place] [address] Dr. Tammi Fleming Urobilinogen Qn (U) 0.2 {Elder'U}/dL Normal 0.2 - 1.0 [facility] Comment on above: Performed By: #### NAGA SORTORO #### [facility] [address] [place] [address] Dr. Tammi Fleming PREG QUANT HCGon 01-04-2023 HCG QUANT 4523 mIU/mL Normal [facility] Comment on above: Performed By: #### P REGQNT #### [facility] [address] [place] [address] Dr. Tammi Fleming HCG RANGE SEE BELOW Normal [facility] Comment on above: Result Comment: 5-50 0.2-1 WEEK 50-500 1-2 WEEKS 100-5,000 2-3 WEEKS 500-10,000 3-4 WEEKS 1,000-50,000 4-5 WEEKS 10,000-100,000 5-6 WEEKS 15,000-200,000 6-8 WEEKS 10,000-100,000 2-3 MONTHS Performed By: #### P REGQNT #### [facility] [address] [place] [address] Dr. Tammi Fleming URINE MICROSCOPIC ONLYon BACTERIA TRACE Abnormal NONE SEEN [facility] Comment on above: Performed By: #### Angela CHRSITIE UMICRO #### [facility] [address] [place] [address] Dr. Tammi Fleming Bacteria identified Cx Nom (U) NOT INDICATED Normal [facility] Comment on above: Performed By: #### Angela CHRISTIE UMICRO #### [facility] [address] [place] [address] Dr. Tammi Fleming CAST NONE SEEN Normal NONE SEEN [facility] Comment on above: Performed By: #### Angela CHRISTIE UMICRO #### [facility] [address] [place] [address] Dr. Tammi Fleming Crystals LM Nom (Urine sed) NONE SEEN Normal NONE SEEN [facility] Comment on above: Performed By: #### Angela CHRISTIE UMICRO #### [facility] [address] [place] [address] Dr. Tammi Fleming Epithelial cells LM Ql (Urine sed) NONE SEEN Normal NONE SEEN /RARE [facility] Comment on above: Performed By: #### E RUR, UMICRO #### [facility] [address] [place] [address] Dr. Tammi Fleming MUCOUS NONE SEEN Normal NONE SEEN [facility] Comment on above: Performed By: #### E JENNIFERR, UMICRO #### [facility] [address] [place] [address] Dr. Tammi Fleming RBC 2-5 Abnormal 0-2 [facility] Comment on above: Performed By: #### E CIRILO CHRISTIE #### [facility] [address] [place], [place] [address] Dr. Tammi Fleming WBC NONE SEEN Normal NONE SEEN [facility] Comment on above: Performed By: #### E CIRILO CHRISTIE #### [facility] [address] [place], [place] [address] Dr. Tammi Fleming US PREG TVon 01-04-2023 [...] Date: 2023-01-04 18:08 Normal [facility] BMPon 07-08-2020 Anion gap [Moles/Vol] 11 mmol/L 10 - 20 mmol/L [facility] Calcium [Mass/Vol] 9.5 mg/dL 8.4 - 10. 2 mg/dL [facility] Chloride [Moles/Vol] 109 mmol/L High 98 - 108 mmol/L [facility] Creatinine [Mass/Vol] 0.85 mg/dL 0.40 - 1.10 [facility] GFR/1.73 sq M predicted among non-blacks MDRD (S/P/Bld) [Vol rate/Area] The eGFR should be used for monitoring renal function only and not for medication dosing. [facility] GFR/1.73 sq M.predicted CKD-EPI (S/P/Bld) [Vol rate/Area] 96 >=60 mL/min/1.73 m2 [facility] Glucose [Mass/Vol] 95 mg/dL 65 - 99 mg/dL [facility] H[facility]3 [Moles/Vol] 23 mmol/L 21 - 32 mmol/L [facility] Interpretation and review of laboratory results Abnormal [facility] Potassium [Moles/Vol] 3.5 mmol/L 3.5 - 5.1 mmol/L [facility] Sodium [Moles/Vol] 139 mmol/L 135 - 145 mmol/L [facility] Urea nitrogen [Mass/Vol] 10 mg/dL 8 - 25 mg/dL [facility] Urea nitrogen/Creatinin e [Mass ratio] 11.8 mg/mg [facility] CBC WITH AUTO DIFFERENTIALon 07-08-2020 Basophils (Bld) [#/Vol] 0.02 10*3/uL [facility] Basophils/100 WBC (Bld) 0.2 % [facility] Eosinophils (Bld) [#/Vol] 0.04 10*3/uL [facility] Eosinophils/100 WBC (Bld) 0.5 % [facility] Erythrocyte distribution width (RBC) [Entitic vol] 12.0 % 11.6 - 14.8 % [facility] Hematocrit (Bld) [Volume fraction] 43.3 % 36 - 46 % [facility] Hemoglobin (Bld) [Mass/Vol] 14.7 g/dL 12 - 16 g/dL [facility] Immature granulocytes (Bld) [#/Vol] 0.00 10*3/uL [facility] Immature granulocytes/100 WBC (Bld) 0.00 % [facility] Comment on above: The IG parameter is the percentage of metamyelocytes, myelocytes and promyelocytes. An immature granulocyte count (IG) of 1% or more suggests the possibility of infection, an IG count of 3% is very likely related to an infection. Lymphocytes (Bld) [#/Vol] 2.44 10*3/uL [facility] Lymphocytes/100 WBC (Bld) 30.2 % [facility] MCH (RBC) [Entitic mass] 29.2 pg 26 - 34 pg [facility] MCHC (RBC) [Mass/Vol] 33.9 g/dL 31 - 37 g/dL [facility] MCV (RBC) [Entitic vol] 86.1 fL 80 - 100 fL [facility] Monocytes (Bld) [#/Vol] 0.40 10*3/uL [facility] Monocytes/100 WBC (Bld) 5.0 % [facility] Neutrophils (Bld) [#/Vol] 5.17 10*3/uL [facility] Neutrophils/100 WBC (Bld) 64.1 % [facility] Platelet mean volume (Bld) [Entitic vol] 11.8 fL 9.4 - 12.4 fL [facility] Platelets (Bld) [#/Vol] 228 10*3/uL [facility] RBC (Bld) [#/Vol] 5.03 10*6/uL [facility] WBC (Bld) [#/Vol] 8.07 10*3/uL [facility] ABDOMEN PELVIS WITH IV CO [...] recent appendectomy. Workstation ID: [id number] [facility] EXAMINATION: CT ABDO MEN PELVIS WITH [...] or aggressive osseous abnormality identified. [facility] 1. No acute infectio us, inflammatory or obstructive process identified in the abdomen or pelvis. 2. Postsurgical changes from recent appendectomy. Workstation ID: [id number] [facility] Hepatic Function Panel (LFT) on 07-08-2020 Albumin [Mass/Vol] 3.8 g/dL 3.2 - 5.2 g/dL [facility] ALP [Catalytic activity/Vol] 71 U/L 40 - 140 U/L [facility] ALT [Catalytic activity/Vol] 31 U/L 14 - 65 U/L [facility] AST [Catalytic activity/Vol] 18 U/L 0 - 45 U/L [facility] Bilirubin [Mass/Vol] 0.3 mg/dL 0 - 1.3 mg/dL [facility] Bilirubin.conjugat ed [Mass/Vol] mg/dL 0 - 0.4 mg/dL [facility] Protein [Mass/Vol] 7.9 g/dL 6 - 8 g/dL [facility] Lipaseon 07-08-2020 Lipase [Catalytic activity/Vol] 95 U/L 73 - 393 U/L [facility] Otheron 07-08-2020 Interpretation and review of laboratory results Normal [facility] Extra Tube Hold for add-ons. [facility] Comment on above: Auto resulted. URINALYSISon 07-08-2020 Bacteria Auto Ql (U) Rare Abnormal None Seen /hpf [facility] Bilirubin Ql (U) Negative Negative [facility] th Clarity Refractometry automated (U) Clear Clear [facility] Color (U) Yellow Colorless, Yellow [facility] Epithelial cells.squamous Auto (Urine sed) [#/Area] 1 [facility] Glucose Auto test strip (U) [Mass/Vol] Negative Negative mg/dL [facility] Hemoglobin Auto test strip Ql (U) Negative Negative [facility] Interpretation and review of laboratory results Abnormal [facility] Ketones (U) [Mass/Vol] Negative Negative mg/dL [facility] Leukocyte esterase Auto test strip Ql (U) Negative Negative [facility] Nitrite Auto test strip Ql (U) Negative Negative [facility] pH (U) 7.5 [pH] High [facility] Protein (U) [Mass/Vol] Negative Negative mg/dL [facility] Specific gravity (U) [Rel density] 1.020 [facility] Urobilinogen (U) [Mass/Vol] <2.0 <2.0 mg/dL [facility] Microscopic examinat ion is performed on all urinalysis samples and only positive findings are reported. The test for blood on the chemical analytic portion of urinalysis may also be positive due to hemoglobinuria and myoglobinuria and if red blood cells are present they are quantified by microscopic examination. [facility] Urine Pregnancyon 07-08-2020 HCG ( test) Ql (U) Negative Negative [facility] Interpretation and review of laboratory results Normal [facility] CBC WITH AUTO DIFFERENTIALon 06-23-2020 Basophils (Bld) [#/Vol] 0.00 10*3/uL [facility] Basophils/100 WBC (Bld) 0.0 % [facility] Eosinophils (Bld) [#/Vol] 0.00 10*3/uL [facility] Eosinophils/100 WBC (Bld) 0.0 % [facility] Erythrocyte distribution width (RBC) [Entitic vol] 12.2 % 11.6 - 14.8 % [facility] Hematocrit (Bld) [Volume fraction] 37.2 % 36 - 46 % [facility] Hemoglobin (Bld) [Mass/Vol] 12.6 g/dL 12 - 16 g/dL [facility] Immature granulocytes (Bld) [#/Vol] 0.01 10*3/uL [facility] Immature granulocytes/100 WBC (Bld) 0.10 % [facility] Comment on above: The IG parameter is the percentage of metamyelocytes, myelocytes and promyelocytes. An immature granulocyte count (IG) of 1% or more suggests the possibility of infection, an IG count of 3% is very likely related to an infection. Interpretation and review of laboratory results Abnormal [facility] Lymphocytes (Bld) [#/Vol] 0.82 10*3/uL Low [facility] Lymphocytes/100 WBC (Bld) 6.8 % [facility] MCH (RBC) [Entitic mass] 29.3 pg 26 - 34 pg [facility] MCHC (RBC) [Mass/Vol] 33.9 g/dL 31 - 37 g/dL [facility] MCV (RBC) [Entitic vol] 86.5 fL 80 - 100 fL [facility] Monocytes (Bld) [#/Vol] 0.31 10*3/uL [facility] Monocytes/100 WBC (Bld) 2.6 % [facility] Neutrophils (Bld) [#/Vol] 10.86 10*3/uL High [facility] Neutrophils/100 WBC (Bld) 90.5 % [facility] Platelet mean volume (Bld) [Entitic vol] 12.1 fL 9.4 - 12.4 fL [facility] Platelets (Bld) [#/Vol] 197 10*3/uL [facility] RBC (Bld) [#/Vol] 4.30 10*6/uL [facility] WBC (Bld) [#/Vol] 12.00 10*3/uL [facility] CBC WITH AUTO DIFFERENTIALon 06-22-2020 Basophils (Bld) [#/Vol] 0.02 10*3/uL [facility] Basophils/100 WBC (Bld) 0.1 % [facility] Eosinophils (Bld) [#/Vol] 0.00 10*3/uL [facility] Eosinophils/100 WBC (Bld) 0.0 % [facility] Erythrocyte distribution width (RBC) [Entitic vol] 12.0 % 11.6 - 14.8 % [facility] Hematocrit (Bld) [Volume fraction] 40.2 % 36 - 46 % [facility] Hemoglobin (Bld) [Mass/Vol] 14.0 g/dL 12 - 16 g/dL [facility] Immature granulocytes (Bld) [#/Vol] 0.02 10*3/uL [facility] Immature granulocytes/100 WBC (Bld) 0.10 % [facility] Comment on above: The IG parameter is the percentage of metamyelocytes, myelocytes and promyelocytes. An immature granulocyte count (IG) of 1% or more suggests the possibility of infection, an IG count of 3% is very likely related to an infection. Interpretation and review of laboratory results Abnormal [facility] Lymphocytes (Bld) [#/Vol] 1.20 10*3/uL [facility] Lymphocytes/100 WBC (Bld) 5.9 % [facility] MCH (RBC) [Entitic mass] 29.4 pg 26 - 34 pg [facility] MCHC (RBC) [Mass/Vol] 34.8 g/dL 31 - 37 g/dL [facility] MCV (RBC) [Entitic vol] 84.5 fL 80 - 100 fL [facility] Monocytes (Bld) [#/Vol] 0.67 10*3/uL [facility] Monocytes/100 WBC (Bld) 3.3 % [facility] Neutrophils (Bld) [#/Vol] 18.51 10*3/uL High [facility] Neutrophils/100 WBC (Bld) 90.6 % [facility] Platelet mean volume (Bld) [Entitic vol] 11.7 fL 9.4 - 12.4 fL [facility] Platelets (Bld) [#/Vol] 223 10*3/uL [facility] RBC (Bld) [#/Vol] 4.76 10*6/uL [facility] WBC (Bld) [#/Vol] 20.42 10*3/uL [facility] COVID-19, MOLECULARon 2019 SARS-COV-2 (BERG [...] at the following links: For Healthcare Providers: https://www.fda.gov/media/891958/download For Patients: https://www.fda.gov/media/049269/download Performed By: #### L [id number] #### SH [address] [address] Kenneth Arrieta M.D. [id number] COVID-19, Molecularon 2019 Interpretation and review of laboratory results Normal [facility] SARS-CoV-2 Not Detected Not Detected [facility] Comment on above: This test was [...] at the following links: For Healthcare Providers: https://www.fda.gov/media/105877/download For Patients: https://www.fda.gov/media/616415/download CT ABDOMEN PELVIS WITH IV CO NTRAST [...] seen directed medially within the central anterior [id number] pelvis. No bowel obstruction. Some physiologic free [...] is directed medially within the central anterior [id number] pelvis with no bowel obstruction. 3. Some [...] seen directed medially within the central anterior [id number] pelvis. No bowel obstruction. Some physiologic free [...] is directed medially within the central anterior zry-[id number] pelvis with no bowel obstruction. 3. Some physiologic free fluid in the cul-de-sac. Some small follicles seen in the ovaries bilaterally. Results were called by Dr. Clifford Wilson to Dr. ANDREY VALDEZ on 06/22/2020 at 16:43. SHINT/adrianna Workstation ID: [id number] [facility] 1. Acute appendiciti s. The appendix is seen just anterior to the right common iliac artery and is distended approaching 9 mm with wall enhancement and surrounding fatty stranding. 2. Moderate amount of fecal matter in the proximal colon. The cecum is directed medially within the central anterior yye-sl-gtpez pelvis with no bowel obstruction. 3. Some physiologic free fluid in the cul-de-sac. Some small follicles seen in the ovaries bilaterally. Results were called by Dr. Clifford Wilson to Dr. ANDREY VALDEZ on 06/22/2020 at 16:43. GJT/dnb Workstation ID: [id number] [facility] EXAMINATION: CT ABDO MEN PELVIS WITH [...] seen directed medially within the central anterior cka-ym-ebhrx pelvis. No bowel obstruction. Some physiologic free fluid in the cul-de-sac. Some follicles seen in the ovaries bilaterally. The uterus and urinary bladder unremarkable. No acute osseous abnormality. [facility] Comprehensive Metabolic Pane kendra 06-22-2020 Albumin [Mass/Vol] 4.0 g/dL 3.2 - 5.2 g/dL [facility] ALP [Catalytic activity/Vol] 63 U/L 40 - 140 U/L [facility] ALT [Catalytic activity/Vol] 27 U/L 14 - 65 U/L [facility] Anion gap [Moles/Vol] 10 mmol/L 10 - 20 mmol/L [facility] AST [Catalytic activity/Vol] 18 U/L 0 - 45 U/L [facility] Bilirubin [Mass/Vol] 0.5 mg/dL 0 - 1.3 mg/dL [facility] Calcium [Mass/Vol] 9.1 mg/dL 8.4 - 10. 2 mg/dL [facility] Chloride [Moles/Vol] 109 mmol/L High 98 - 108 mmol/L [facility] Creatinine [Mass/Vol] 0.83 mg/dL 0.40 - 1.10 [facility] GFR/1.73 sq M predicted among non-blacks MDRD (S/P/Bld) [Vol rate/Area] The eGFR should be used for monitoring renal function only and not for medication dosing. [facility] GFR/1.73 sq M.predicted CKD-EPI (S/P/Bld) [Vol rate/Area] 98 >=60 mL/min/1.73 m2 [facility] Glucose [Mass/Vol] 96 mg/dL 65 - 99 mg/dL [facility] HCO3 [Moles/Vol] 25 mmol/L 21 - 32 mmol/L [facility] Potassium [Moles/Vol] 3.7 mmol/L 3.5 - 5.1 mmol/L [facility] Protein [Mass/Vol] 7.8 g/dL 6 - 8 g/dL [facility] Sodium [Moles/Vol] 140 mmol/L 135 - 145 mmol/L [facility] Urea nitrogen [Mass/Vol] 10 mg/dL 8 - 25 mg/dL [facility] Urea nitrogen/Creatinin e [Mass ratio] 12.0 mg/mg [facility] ECG 12-LEADon 06-22-2020 Andrey Valdez MD 2019 4:57 PM ECG 12 Lead Date/Time: 06/22/2020 4:51 PM Performed by: Andrey Valdez MD Authorized by: Andrey Valdez MD Interpreted by ED attending physician Comparison: not compared with previous ECG Rhythm: sinus rhythm BPM: 85 AR Interval: 108 QRS Interval: 82 QT Interval: 426 Clinical impression: non-specific ECG [facility] Lipaseon 06-22-2020 Lipase [Catalytic activity/Vol] 72 U/L Low 73 - 393 U/L [facility] Otheron 06-22-2020 Interpretation and review of laboratory results Abnormal [facility] URINALYSISon 06-22-2020 Bacteria Auto Ql (U) Few Abnormal None Seen /hpf [facility] Bilirubin Ql (U) Negative Negative [facility] th Clarity Refractometry automated (U) Cloudy Abnormal Clear [facility] Color (U) Yellow Colorless, Yellow [facility] Epithelial cells.squamous Auto (Urine sed) [#/Area] 3 [facility] Glucose Auto test strip (U) [Mass/Vol] Negative Negative mg/dL [facility] Hemoglobin Auto test strip Ql (U) Negative Negative [facility] Interpretation and review of laboratory results Abnormal [facility] Ketones (U) [Mass/Vol] 20 Abnormal Negative mg/dL [facility] Leukocyte esterase Auto test strip Ql (U) Negative Negative [facility] Nitrite Auto test strip Ql (U) Negative Negative [facility] pH (U) 7.0 [pH] [facility] Protein (U) [Mass/Vol] Negative Negative mg/dL [facility] Specific gravity (U) [Rel density] 1.020 [facility] Urobilinogen (U) [Mass/Vol] <2.0 <2.0 mg/dL [facility] WBC Auto (Urine sed) [#/Area] 2 [facility] Microscopic examinat ion is performed on all urinalysis samples and only positive findings are reported. The test for blood on the chemical analytic portion of urinalysis may also be positive due to hemoglobinuria and myoglobinuria and if red blood cells are present they are quantified by microscopic examination. [facility] Urine Pregnancyon 06-22-2020 HCG ( test) Ql (U) Negative Negative [facility] Interpretation and review of laboratory results Normal [facility] Vital Signs Date Time Vital Sign Value Performing Clinician Faci lity 07-08-2020 15:34-0500 BP Diastolic 79 mm[Hg] [facility] 07-08-2020 15:34-0500 BP Systolic 125 mm[Hg] [facility] 07-08-2020 15:34-0500 Pulse (Heart Rate) 81 /min [facility] 07-08-2020 15:34-0500 Pulse Oximetry 99 % [facility] 07-08-2020 15:34-0500 Respiratory Rate 16 /min [facility] 07-08-2020 13:50-0500 BMI (Body Mass Index) 20.36 kg/m2 [facility] 07-08-2020 13:50-0500 Body Temperature 98.49 [degF] Kate [facility] 07-08-2020 13:50-0500 Body weight 58.97 kg Kate [facility] 07-08-2020 13:50-0500 Height 170.2 cm Kate [facility] 06-23-2020 07:35-0500 Body Temperature 98.01 [degF] Andrey [facility] 06-23-2020 07:35-0500 BP Diastolic 68 mm[Hg] [facility] 06-23-2020 07:35-0500 BP Systolic 106 mm[Hg] [facility] 06-23-2020 07:35-0500 Pulse (Heart Rate) 75 /min [facility] 06-23-2020 07:35-0500 Pulse Oximetry 94 % [facility] 06-23-2020 07:35-0500 Respiratory Rate 16 /min [facility] 06-22-2020 14:15-0500 BMI (Body Mass Index) 20.36 kg/m2 [facility] 06-22-2020 14:15-0500 Body weight 58.97 kg [facility] 06-22-2020 14:15-0500 Height 170.2 cm [facility] Encounters Encounter Date Encounter Type [...] End: 07-08-2020 Emergency department patient visit PHYSICIAN [facility] Start: 07-08-2020 End: 07-08-2020 Emergency department patient visit Kaet Mendoza Work Phone: [facility] Emergency Department Comment on above: Abdominal pain, unsp ecified abdominal location (Primary Dx) Start: 06-22-2020 End: 06-23-2020 Patient encounter procedure PHYSICIAN [facility] Start: 06-22-2020 End: 06-23-2020 Emergency department patient visit Andrey Valdez Work Phone: [facility] Med Surg Comment on above: Acute appendicitis w ith localized peritonitis, without perforation, abscess, or gangrene (Primary Dx) Procedures Date Procedure Procedure Detail Performing Clinician Start: 07-08-2020 Ct abdomen & pelvis w/contrast material Kate Eva [facility] Work Phone: Start: 07-08-2020 Basic metabolic 2000 panel - Serum or Plasma Kate Eva [facility] Work Phone: Start: 07-08-2020 Choriogonadotropin ( test) [Presence] in Urine Katejalen Velasquez [facility] Work Phone: Start: 07-08-2020 Complete blood count with white cell differential, automated Zhui Xinee [facility] Work Phone: Start: 07-08-2020 Complete blood count with white cell differential, manual Zhui Xinee [facility] Work Phone: Start: 07-08-2020 Hepatic function 2000 panel - Serum or Plasma Zhui Xinee [facility] Work Phone: Start: 07-08-2020 LIGHT BLUE TOP Zhui Xinee [facility] Work Phone: Start: 07-08-2020 LIGHT GREEN TOP [...] Work Phone: Start: 06-22-2020 12 lead ECG Ashton Wu Work Phone: Start: 06-22-2020 Ct abdomen & pelvis w/contrast material Ashton Wu Work Phone: Start: 06-22-2020 Complete blood count with white cell differential, automated Andrey Valdez Work Phone: Start: 06-22-2020 Complete blood count with white cell differential, manual Andrey Valdez Work Phone: Start: 06-22-2020 Comprehensive metabolic 2000 panel - Serum or Plasma Ashton Wu Work Phone: Start: 06-22-2020 Lipase [Enzymatic activity/volume] in Serum or Plasma Andrey Wu Work Phone: Start: 06-22-2020 Choriogonadotropin ( test) [Presence] in Urine Andrey Valdez Work Phone: Start: 06-22-2020 Urinalysis Andrey Valdez Work Phone: Plan of Treatment Date Care Activity Detail Author Start: 04-22-2020 Influenza vaccination given Se quential Influenza Vaccine (#1) [facility] Start: 2012 Hepatitis C antibody , confirmatory test Hepatitis C Screening [facility] Start: 2009 HIV screening HIV Screening [facility] Start: 2006 Adolescent depressio n screening assessment Depression Screening (PHQ9) [facility] Start: 2005 Vaccination for tri n papillomavirus HPV Vaccines (1 - 2-dose series) [facility] Start: 1997 History and physical examination, annual for health maintenance Wellness Visit [facility] Start: 1994 Screening for malign ant neoplasm of cervix Pap Smear [facility] Start: 1994 Tetanus vaccination Tetanus: Every 1 0yrs [facility] Procedure on tissue specimen Tis kyara Exam Pathology and Cytology STAT Release Upon Ordering for 1 Occurrences starting 06/22/2020 [facility] Comment on above: Release Upon Orderin g for 1 Occurrences starting 06/22/2020 Payers Date Payer Category Payer Unknown [employer] PPO [id number] 2019-Present [id number] 2019 Unknown [id number] 1994 Unknown [id number] 1994 Unknown [id number] 1994 Unknown [id number] [id number] 1994 Unknown [id number] [id number] 1994 Unknown [id number] [id number] 1994 Unknown [id number] [id number] 1994 Unknown [id number] [id number] 1994 Unknown [id number] [id number] 1994 Unknown [id number] [id number] 1994 Unknown [id number] [id number] 1994 Unknown [id number] [id number] 1994 Unknown [id number] [id number] 1994 Unknown [id number] [id number] 1994 Unknown [id number] [id number] 1994 Unknown [id number] [id number] 1959 Unknown [id number] Social History Date Type Detail Facility Start: 06-23-2020 End: 07-08-2020 Tobacco smoking status TNIS Never smoker [facility] Start: 06-23-2020 End: 07-08-2020 Tobacco use and exposure Never used [facility] Start: 06-23-2020 End: 07-08-2020 Alcohol intake Ex-drinker (finding) [facility] Sex Assigned At Not on file [facility] Exposure to SARS-CoV-2 (event) Not sure [facility] Discharge Instructions * Instructions* Magdi Salazar MD - 06/23/[address] Salazar (Hernia Repair/Gallbladder) [phone] No Lifting, no bending, no pushing May [...] NATURE, CALL YOUR DOCTOR/EMERGENCY ROOM. [facility] EM[facility]ENCY ROOM [phone] Make a follow-up appointment with your surgeon. Post Operative Instructions Dr Salazar (Hernia Repair/Gallbladder) [phone] No Lifting, no bending, no pushing May [...] NATURE, CALL YOUR DOCTOR/EMERGENCY ROOM. [facility] [phone] Make a follow-up appointment with your surgeon. documented in this encounter* Attachments The following attachments cannot be sent through Care Everywhere. 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 CSN: [id number] PCP: Physician No History: Chief Complaint: Abdominal [...] file Gets together: Not on file Attends sikhism service: Not on file Active member of [...] Procedure Abnormality Status --------- ------ CBC Auto Differential[[id number]] Abnormal Final result Please view results for [...] a case request, and contact the nurse business administrator expanded function dental assistant. Patient is to be kept n.p.o. He would like 3.375 of Zosyn given to the patient. He would like the patient admitted to his service. Clinical Impression: 1. Acute appendicitis with localized peritonitis, without perforation, abscess, or gangrene Disposition: hospitalize to Operating Room Andrey Valdez M.D. Attending Physician [facility] Emergency Departments 06/22/2020 Portions of [...] y.o. : 1995 VISIT DATE: 07/08/2020 CSN: [id number] PCP: Physician No Chief Complaint Patient presents [...] file Gets together: Not on file Attends sikhism service: Not on file Active member of [...] Colorless, Yellow Clarity, Urine Clear Clear Specific [place] 1.020 1.005 - 1.025 pH, Urine 7.5 [...] Magdi Salazar MD. Specialty: General Surgery [facility] [id number] Contact information for after-discharge care Follow-up information [...] change in drainage on op-sites. MELE DOLL [facility] [id number] [facility] [id number] 1995 DATE 06/22/2020 OPERATIVE REPORT SURGEON MAGDI [...] called when every member of the operating republican was in and around the table. She [...] utilizing 0 Ethibond with an open technique. [id number] suture was placed after complete desufflation of [...] appendicitis. MAGDI SALAZAR MD D 06/22/2020 20:33 [id number] T 06/23/2020 01:38 VMT/MODL Umbilical dressing saturated with light pink serous drainage.Pubic dressing 1/2 saturated with shadow of pink drainage. Brief Post Operative Note Patient Name: Mele Doll : 1995 (24 y.o.) Date of Service: 06/22/2020 CSN: [id number] Procedure(s): APPENDECTOMY LAPAROSCOPIC Pre-Operative Diagnoses: RIGHT SIDED ABDOMINAL PAIN - ACUTE APPENDICITIS Post-Operative Diagnoses: ACUTE RETROCECAL APPENDICITIS Surgeon(s) and Role: * Magdi Salazar MD - Primary Anesthesiologist: Jaylin Buckley MD Correctional Officer Sergeant: Tanisha Varghese RN Scrub Person Assist: Jadyn [...] previous ECG Rhythm: sinus rhythm BPM: 85 AR Interval: 108 QRS Interval: 82 QT Interval: 426 Clinical impression: non-specific ECG documented in this encounter INFORMATION SOURCE (unrecogn ized section and content) DATE CREATED AUTHOR 07/13/2020 [facility] DATE CREATED AUTHOR AUTHOR'S ORGANIZ ATION 01/28/2023 [facility] DATE CREATED AUTHOR AUTHOR'S ORGANIZ ATION 04/24/2024 [facility] EPIC FOR RECORDS PERTAINING TO [...] BE BASED ON THE PRIMARY CLINICAL RECORDS. [employer] provides no warranty or guarantee of the accuracy or completeness of information in this document.
== END 2024-05-08 20:23 | disposition home or self-care (01) ==
LOC: LAB 20:22
PROVIDERS: PCP Obstetrics & Gynecology; Visit Provider Obstetrics & Gynecology
DX: Z34.93 Encounter for supervision of normal pregnancy, unspecified, third trimester (principal); Z3A.36 36 weeks gestation of pregnancy
CPT/HCPCS: 87081; 87150

== ENCOUNTER 2024-05-11 06:58 | Outpatient (OUT) | payer BC, SELFPAY ==
--- OUTSIDE RECORDS SUMMARY | 2024-05-11 07:02 | XMS_ITS | CCD ---
Author Organization [facility] Care Team Providers Care Revenue Enforcement Agent Name Role Phone No, Physician Primary Care Provider Unavailabl e NO, PHYSICIAN Primary Care Unavailable MAGDI SALAZAR Consulting Moon SALAZAR, MAGDI REYNOSO Attending Moon [...] KAUFFMAN Attending Unavailable CRISTI, ELLEN Attending Unavailable DALYCIERA Attending Unavailable CRISTIELLEN Attending Unavailable Medications Current [...] HCG QUANT 67 mIU/mL Normal [facility] Comment on above: Performed By: #### P REGQNT #### [facility] [address] [place] [address] Dr. Tammi Fleming HCG RANGE SEE BELOW Normal [facility] Comment on above: Result Comment: 5-50 0.2-1 WEEK 50-500 1-2 WEEKS 100-5,000 2-3 WEEKS 500-10,000 3-4 WEEKS 1,000-50,000 4-5 WEEKS 10,000-100,000 5-6 WEEKS 15,000-200,000 6-8 WEEKS 10,000-100,000 2-3 MONTHS Performed By: #### P REGQNT #### [facility] [address] [place] [address] Dr. Tammi Fleming PREG QUANT HCGon 01-10-2023 HCG QUANT 231 mIU/mL Normal [facility] Comment on above: Performed By: #### P REGQNT #### [facility] [address] [place] [address] Dr. Tammi Fleming HCG RANGE SEE BELOW Normal [facility] Comment on above: Result Comment: 5-50 0.2-1 WEEK 50-500 1-2 WEEKS 100-5,000 2-3 WEEKS 500-10,000 3-4 WEEKS 1,000-50,000 4-5 WEEKS 10,000-100,000 5-6 WEEKS 15,000-200,000 6-8 WEEKS 10,000-100,000 2-3 MONTHS Performed By: #### P REGQNT #### [facility] [address] [place] [address] Dr. Tammi Fleming CBC AUTO DIFFon 01-04-2023 BASO # 0.0 103/ul Normal 0.0-0.1 [facility] Comment on above: Performed By: #### C BC #### [facility] [address] [place] [address] Dr. Tammi Fleming Basophils/100 WBC (Bld) 0.3 % Normal 0.2-2.0 [facility] Comment on above: Performed By: #### C BC #### [facility] [address] [place] [address] Dr. Tammi Fleming EO # 0.1 103/ul Normal 0.0-0.7 [facility] Comment on above: Performed By: #### C BC #### [facility] [address] [place] [address] Dr. Tammi Fleming Eosinophils/100 WBC (Bld) 0.8 % Critically low 0.9-7.0 [facility] Comment on above: Performed By: #### C BC #### [facility] [address] [place] [address] Dr. Tammi Fleming Erythrocyte distribution width (RBC) [Ratio] 12.0 % Normal 11.0-15.0 [facility] Comment on above: Performed By: #### C BC #### [facility] [address] [place] [address] Dr. Tammi Fleming Hematocrit (Bld) [Volume fraction] 42.6 % Normal 36.0-48.0 [facility] Comment on above: Performed By: #### C BC #### [facility] [address] [place] [address] Dr. Tammi Fleming Hemoglobin (Bld) [Mass/Vol] 14.5 g/dL Normal 12.0-16.0 [facility] Comment on above: Performed By: #### C BC #### [facility] [address] [place] [address] Dr. Tammi Fleming IG # 0.02 10e3/ul Normal 0.00-0.03 [facility] Comment on above: Performed By: #### C BC #### [facility] [address] [place] [address] Dr. Tammi Fleming IG % 0.3 % Normal 0.0-0.5 [facility] Comment on above: Performed By: #### C BC #### [facility] [address] [place] [address] Dr. Tammi Fleming LYMPH # 1.6 103/ul Normal 1.2-3.8 [facility] Comment on above: Performed By: #### C BC #### [facility] [address] [place] [address] Dr. Tammi Fleming Lymphocytes/100 WBC (Bld) 19.9 % Critically low 20.5-60.0 [facility] Comment on above: Performed By: #### C BC #### [facility] [address] [place] [address] Dr. Tammi Fleming MANUAL DIFF REQ NO Normal [facility] Comment on above: Performed By: #### C BC #### [facility] [address] [place] [address] Dr. Tammi Fleming MCH (RBC) [Entitic mass] 29.8 pg Normal 26.7-34.0 [facility] Comment on above: Performed By: #### C BC #### [facility] [address] [place] [address] Dr. Tammi Fleming MCHC (RBC) [Mass/Vol] 34.0 g/dL Normal 29.9-35.2 [facility] Comment on above: Performed By: #### C BC #### [facility] [address] [address] [address] Tammi Fleming MCV (RBC) [Entitic vol] 87.7 fL Normal 81.0-99.0 [facility] Comment on above: Performed By: #### C BC #### [facility] [address] [address] [address] Tammi Fleming MONO # 0.4 103/ul Normal 0.3-0.8 [facility] Comment on above: Performed By: #### C BC #### [facility] [address] [place] [address] Dr. Tammi Fleming Monocytes/100 WBC (Bld) 5.0 % Normal 1.7-12.0 [facility] Comment on above: Performed By: #### C BC #### [facility] [address] [place] [address] Dr. Tammi Fleming NEUT # 5.8 103/ul Normal 1.4-6.5 [facility] Comment on above: Performed By: #### C BC #### [facility] [address] [place] [address] Dr. Tammi Fleming Neutrophils/100 WBC (Bld) 73.7 % Normal 43.0-75.0 [facility] Comment on above: Performed By: #### C BC #### [facility] [address] [place] [address] Dr. Tammi Fleming Platelet mean volume (Bld) [Entitic vol] 12.1 fL Normal 9.5-13.5 [facility] Comment on above: Performed By: #### C BC #### [facility] [address] [place] [address] Dr. Tammi Fleming PLT 184 103/ul Normal 150-450 [facility] Comment on above: Performed By: #### C BC #### [facility] [address] [place] [address] Dr. Tammi Fleming RBC 4.86 106/ul Normal 4.20-5.40 [facility] Comment on above: Performed By: #### C BC #### [facility] [address] [place] [address] Dr. Tammi Fleming WBC 7.9 103/ul Normal 4.0-11.0 [facility] Comment on above: Performed By: #### C BC #### [facility] [address] [place] [address] Dr. Tammi Fleming ER URINE PROFILEon 3 Bilirubin Ql (U) Negative Normal NEGATIVE [facility] Comment on above: Performed By: #### Angela RUR, UMICRO #### [facility] [address] [place] [address] Dr. aTmmi Fleming Clarity (U) CLEAR Normal CLEAR [facility] Comment on above: Performed By: #### Angela CHRISTIE UMICRO #### [facility] [address] [place] [address] Dr. Tammi Fleming Color (U) LT. YELLOW Normal YELLOW [facility] Comment on above: Performed By: #### Angela CHRISTIE UMICRO #### [facility] [address] [place] [address] Dr. Tammi RAY A micrscopic examina tion will be performed if indicated. Normal [facility] Comment on above: Performed By: #### Angela CHRISTIE UMICRO #### [facility] [address] [place] [address] Dr. Tammi Fleming Glucose Ql (U) Negative Normal NEGATIVE [facility] Comment on above: Performed By: #### Angela RODRIGUEZR, UMICRO #### [facility] [address] [place] [address] Dr. Tammi Fleming Hemoglobin Ql (U) LARGE Abnormal NEGATIVE [facility] Comment on above: Performed By: #### Angela CHRISTIE, UMICRO #### [facility] [address] [place] [address] Dr. Tammi Fleming Ketones Ql (U) Negative Normal NEGATIVE [facility] Comment on above: Performed By: #### E RUR, UMICRO #### [facility] [address] [place] [address] Dr. Tammi Fleming LEUKOCYTES Negative Normal NEGATIVE [facility] Comment on above: Performed By: #### CIRILO SORTO #### [facility] [address] [place] [address] Dr. Tammi Fleming Nitrite Ql (U) Negative Normal NEGATIVE [facility] Comment on above: Performed By: #### CIRILO SORTO #### [facility] [address] [place] [address] Dr. Tammi Fleming pH (U) 7.0 [pH] Normal 5-9 [facility] Comment on above: Performed By: #### CIRILO SORTO #### [facility] [address] [place] [address] Dr. Tammi Fleming SPEC GRAVITY <=1.005 Abnormal 1.005-<=1.025 [facility] Comment on above: Performed By: #### CIRILO SORTO #### [facility] [address] [place] [address] Dr. Tammi Fleming UA PROTEIN Negative Normal NEGATIVE/ TRACE [facility] Comment on above: Performed By: #### CIRILO SORTO #### [facility] [address] [place] [address] Dr. Tammi Fleming UR MICRO IND INDICATED Normal [facility] Comment on above: Performed By: #### CIRILO SORTO #### [facility] [address] [place] [address] Dr. Tammi Fleming Urobilinogen Qn (U) 0.2 {Elder'U}/dL Normal 0.2 - 1.0 [facility] Comment on above: Performed By: #### CIRILO SORTO #### [facility] [address] [place] [address] Dr. Tammi Fleming PREG QUANT HCGon 01-04-2023 HCG QUANT 4523 mIU/mL Normal [facility] Comment on above: Performed By: #### P REGQNT #### [facility] [address] [place] [address] Dr. Tammi Fleming HCG RANGE SEE BELOW Normal [facility] Comment on above: Result Comment: 5-50 0.2-1 WEEK 50-500 1-2 WEEKS 100-5,000 2-3 WEEKS 500-10,000 3-4 WEEKS 1,000-50,000 4-5 WEEKS 10,000-100,000 5-6 WEEKS 15,000-200,000 6-8 WEEKS 10,000-100,000 2-3 MONTHS Performed By: #### P REGQNT #### [facility] [address] [place] [address] Dr. Tammi Fleming URINE MICROSCOPIC ONLYon BACTERIA TRACE Abnormal NONE SEEN [facility] Comment on above: Performed By: #### Angela CHRISTIE UMICRO #### [facility] [address] [place] [address] Dr. Tammi Fleming Bacteria identified Cx Nom (U) NOT INDICATED Normal [facility] Comment on above: Performed By: #### Angela CHRISTIE UMICRO #### [facility] [address] [place] [address] Dr. Tammi Fleming CAST NONE SEEN Normal NONE SEEN [facility] Comment on above: Performed By: #### Angela CHRISTIE UMICRO #### [facility] [address] [place] [address] Dr. Tammi Fleming Crystals LM Nom (Urine sed) NONE SEEN Normal NONE SEEN [facility] Comment on above: Performed By: #### Angela CHRISTIE UMICRO #### [facility] [address] [place] [address] Dr. Tammi Fleming Epithelial cells LM Ql (Urine sed) NONE SEEN Normal NONE SEEN /RARE [facility] Comment on above: Performed By: #### Angela CHRISTIE UMICRO #### [facility] [address] [place] [address] Dr. Tammi Fleming MUCOUS NONE SEEN Normal NONE SEEN [facility] Comment on above: Performed By: #### Angela CHRISTIE UMICRO #### [facility] [address] [place] [address] Dr. Tammi Fleming RBC 2-5 Abnormal 0-2 [facility] Comment on above: Performed By: #### E CIRILO CHRISTIE #### [facility] [address] [place], [place] [address] Dr. Tammi Fleming WBC NONE SEEN Normal NONE SEEN [facility] Comment on above: Performed By: #### E CIRILO CHRISTIE #### [facility] [address] [place], [place] [address] Dr. Tammi Fleming US PREG TVon 01-04-2023 [...] Date: 2023-01-04 18:08 Normal [facility] BMPon 07-08-2020 Anion gap [Moles/Vol] 11 mmol/L 10 - 20 mmol/L [facility] Calcium [Mass/Vol] 9.5 mg/dL 8.4 - 10. 2 mg/dL [facility] Chloride [Moles/Vol] 109 mmol/L High 98 - 108 mmol/L [facility] Creatinine [Mass/Vol] 0.85 mg/dL 0.40 - 1.10 [facility] GFR/1.73 sq M predicted among non-blacks MDRD (S/P/Bld) [Vol rate/Area] The eGFR should be used for monitoring renal function only and not for medication dosing. [facility] GFR/1.73 sq M.predicted CKD-EPI (S/P/Bld) [Vol rate/Area] 96 >=60 mL/min/1.73 m2 [facility] Glucose [Mass/Vol] 95 mg/dL 65 - 99 mg/dL [facility] HCO3 [Moles/Vol] 23 mmol/L 21 - 32 mmol/L [facility] Interpretation and review of laboratory results Abnormal [facility] Potassium [Moles/Vol] 3.5 mmol/L 3.5 - 5.1 mmol/L [facility] Sodium [Moles/Vol] 139 mmol/L 135 - 145 mmol/L [facility] Urea nitrogen [Mass/Vol] 10 mg/dL 8 - 25 mg/dL [facility] Urea nitrogen/Creatinin e [Mass ratio] 11.8 mg/mg [facility] CBC WITH AUTO DIFFERENTIALon 07-08-2020 Basophils (Bld) [#/Vol] 0.02 10*3/uL [facility] Basophils/100 WBC (Bld) 0.2 % [facility] Eosinophils (Bld) [#/Vol] 0.04 10*3/uL [facility] Eosinophils/100 WBC (Bld) 0.5 % [facility] Erythrocyte distribution width (RBC) [Entitic vol] 12.0 % 11.6 - 14.8 % [facility] Hematocrit (Bld) [Volume fraction] 43.3 % 36 - 46 % [facility] Hemoglobin (Bld) [Mass/Vol] 14.7 g/dL 12 - 16 g/dL [facility] Immature granulocytes (Bld) [#/Vol] 0.00 10*3/uL [facility] Immature granulocytes/100 WBC (Bld) 0.00 % [facility] Comment on above: The IG parameter is the percentage of metamyelocytes, myelocytes and promyelocytes. An immature granulocyte count (IG) of 1% or more suggests the possibility of infection, an IG count of 3% is very likely related to an infection. Lymphocytes (Bld) [#/Vol] 2.44 10*3/uL [facility] Lymphocytes/100 WBC (Bld) 30.2 % [facility] MCH (RBC) [Entitic mass] 29.2 pg 26 - 34 pg [facility] MCHC (RBC) [Mass/Vol] 33.9 g/dL 31 - 37 g/dL [facility] MCV (RBC) [Entitic vol] 86.1 fL 80 - 100 fL [facility] Monocytes (Bld) [#/Vol] 0.40 10*3/uL [facility] Monocytes/100 WBC (Bld) 5.0 % [facility] Neutrophils (Bld) [#/Vol] 5.17 10*3/uL [facility] Neutrophils/100 WBC (Bld) 64.1 % [facility] Platelet mean volume (Bld) [Entitic vol] 11.8 fL 9.4 - 12.4 fL [facility] Platelets (Bld) [#/Vol] 228 10*3/uL [facility] RBC (Bld) [#/Vol] 5.03 10*6/uL [facility] ealt WBC (Bld) [#/Vol] 8.07 10*3/uL [facility] ealt CT ABDOMEN PELVIS WITH IV CO [...] 08, 2020 3:59:53 PM EST Finalized by: MYANOR KABA on TueJul 08, 2020 3:59:53 PM EST Normal [facility] Comment on above: Order Comment: Injur y/Trauma or Illness?:Illness/Other How long have you had these symptoms (acute/chronic)?:Acute Reason for exam?:abd pain: nausea Type of Exam?:Initial Additional signs and symptoms?:abd pain x [address] Abdomen Pelvis With IV Co ntrast Onlyon 07-08-2020 Interface, Rad In [facility] - 07/08/2020 4:02 PM EST EXAMINATION: CT [...] from recent appendectomy. Workstation ID: [id number] [facility] EXAMINATION: CT ABDO MEN PELVIS WITH [...] acute or aggressive osseous abnormality identified. [facility] 1. No acute infectio us, inflammatory or obstructive process identified in the abdomen or pelvis. 2. Postsurgical changes from recent appendectomy. Workstation ID: [id number] [facility] Hepatic Function Panel (LFT) on 07-08-2020 Albumin [Mass/Vol] 3.8 g/dL 3.2 - 5.2 g/dL [facility] ALP [Catalytic activity/Vol] 71 U/L 40 - 140 U/L [facility] ALT [Catalytic activity/Vol] 31 U/L 14 - 65 U/L [facility] AST [Catalytic activity/Vol] 18 U/L 0 - 45 U/L [facility] Bilirubin [Mass/Vol] 0.3 mg/dL 0 - 1.3 mg/dL [facility] Bilirubin.conjugat ed [Mass/Vol] mg/dL 0 - 0.4 mg/dL [facility] Protein [Mass/Vol] 7.9 g/dL 6 - 8 g/dL [facility] alth Lipaseon 07-08-2020 Lipase [Catalytic activity/Vol] 95 U/L 73 - 393 U/L [facility] Otheron 07-08-2020 Interpretation and review of laboratory results Normal [facility] Extra Tube Hold for add-ons. [facility] Comment on above: Auto resulted. URINALYSISon 07-08-2020 Bacteria Auto Ql (U) Rare Abnormal None Seen /hpf [facility] Bilirubin Ql (U) Negative Negative [facility] th Clarity Refractometry automated (U) Clear Clear [facility] Color (U) Yellow Colorless, Yellow [facility] Epithelial cells.squamous Auto (Urine sed) [#/Area] 1 [facility] Glucose Auto test strip (U) [Mass/Vol] Negative Negative mg/dL [facility] Hemoglobin Auto test strip Ql (U) Negative Negative [facility] Interpretation and review of laboratory results Abnormal [facility] Ketones (U) [Mass/Vol] Negative Negative mg/dL [facility] Leukocyte esterase Auto test strip Ql (U) Negative Negative [facility] Nitrite Auto test strip Ql (U) Negative Negative [facility] pH (U) 7.5 [pH] High [facility] Protein (U) [Mass/Vol] Negative Negative mg/dL [facility] Specific gravity (U) [Rel density] 1.020 [facility] Urobilinogen (U) [Mass/Vol] <2.0 <2.0 mg/dL [facility] Microscopic examinat ion is performed on all urinalysis samples and only positive findings are reported. The test for blood on the chemical analytic portion of urinalysis may also be positive due to hemoglobinuria and myoglobinuria and if red blood cells are present they are quantified by microscopic examination. [facility] Urine Pregnancyon 07-08-2020 HCG ( test) Ql (U) Negative Negative [facility] Interpretation and review of laboratory results Normal [facility] CBC WITH AUTO DIFFERENTIALon 06-23-2020 Basophils (Bld) [#/Vol] 0.00 10*3/uL [facility] Basophils/100 WBC (Bld) 0.0 % [facility] Eosinophils (Bld) [#/Vol] 0.00 10*3/uL [facility] Eosinophils/100 WBC (Bld) 0.0 % [facility] Erythrocyte distribution width (RBC) [Entitic vol] 12.2 % 11.6 - 14.8 % [facility] Hematocrit (Bld) [Volume fraction] 37.2 % 36 - 46 % [facility] Hemoglobin (Bld) [Mass/Vol] 12.6 g/dL 12 - 16 g/dL [facility] Immature granulocytes (Bld) [#/Vol] 0.01 10*3/uL [facility] Immature granulocytes/100 WBC (Bld) 0.10 % [facility] Comment on above: The IG parameter is the percentage of metamyelocytes, myelocytes and promyelocytes. An immature granulocyte count (IG) of 1% or more suggests the possibility of infection, an IG count of 3% is very likely related to an infection. Interpretation and review of laboratory results Abnormal [facility] Lymphocytes (Bld) [#/Vol] 0.82 10*3/uL Low [facility] Lymphocytes/100 WBC (Bld) 6.8 % [facility] MCH (RBC) [Entitic mass] 29.3 pg 26 - 34 pg [facility] MCHC (RBC) [Mass/Vol] 33.9 g/dL 31 - 37 g/dL [facility] MCV (RBC) [Entitic vol] 86.5 fL 80 - 100 fL [facility] Monocytes (Bld) [#/Vol] 0.31 10*3/uL [facility] Monocytes/100 WBC (Bld) 2.6 % [facility] Neutrophils (Bld) [#/Vol] 10.86 10*3/uL High [facility] Neutrophils/100 WBC (Bld) 90.5 % [facility] Platelet mean volume (Bld) [Entitic vol] 12.1 fL 9.4 - 12.4 fL [facility] Platelets (Bld) [#/Vol] 197 10*3/uL [facility] RBC (Bld) [#/Vol] 4.30 10*6/uL [facility] WBC (Bld) [#/Vol] 12.00 10*3/uL [facility] CBC WITH AUTO DIFFERENTIALon 06-22-2020 Basophils (Bld) [#/Vol] 0.02 10*3/uL [facility] Basophils/100 WBC (Bld) 0.1 % [facility] Eosinophils (Bld) [#/Vol] 0.00 10*3/uL [facility] Eosinophils/100 WBC (Bld) 0.0 % [facility] Erythrocyte distribution width (RBC) [Entitic vol] 12.0 % 11.6 - 14.8 % [facility] Hematocrit (Bld) [Volume fraction] 40.2 % 36 - 46 % [facility] Hemoglobin (Bld) [Mass/Vol] 14.0 g/dL 12 - 16 g/dL [facility] Immature granulocytes (Bld) [#/Vol] 0.02 10*3/uL [facility] Immature granulocytes/100 WBC (Bld) 0.10 % [facility] Comment on above: The IG parameter is the percentage of metamyelocytes, myelocytes and promyelocytes. An immature granulocyte count (IG) of 1% or more suggests the possibility of infection, an IG count of 3% is very likely related to an infection. Interpretation and review of laboratory results Abnormal [facility] Lymphocytes (Bld) [#/Vol] 1.20 10*3/uL [facility] Lymphocytes/100 WBC (Bld) 5.9 % [facility] MCH (RBC) [Entitic mass] 29.4 pg 26 - 34 pg [facility] MCHC (RBC) [Mass/Vol] 34.8 g/dL 31 - 37 g/dL [facility] MCV (RBC) [Entitic vol] 84.5 fL 80 - 100 fL [facility] Monocytes (Bld) [#/Vol] 0.67 10*3/uL [facility] Monocytes/100 WBC (Bld) 3.3 % [facility] Neutrophils (Bld) [#/Vol] 18.51 10*3/uL [facility] Neutrophils/100 WBC (Bld) 90.6 % [facility] Platelet mean volume (Bld) [Entitic vol] 11.7 fL 9.4 - 12.4 fL [facility] Platelets (Bld) [#/Vol] 223 10*3/uL [facility] RBC (Bld) [#/Vol] 4.76 10*6/uL [facility] ealt WBC (Bld) [#/Vol] 20.42 10*3/uL High [facility] COVID-19, MOLECULARon 2019 SARS-COV-2 (BERG ID) Not Detected Normal Not Detected [facility] Comment on above: Result Comment: This [...] at the following links: For Healthcare Providers: https://www.fda.gov/media/064412/download For Patients: https://www.fda.gov/media/090218/download Performed By: #### L [id number] #### [place] [address] Kenneth Arrieta M.D. [id number] COVID-19, Molecularon 2019 Interpretation and review of laboratory results Normal [facility] SARS-CoV-2 Not Detected Not Detected [facility] Comment on above: This test was [...] at the following links: For Healthcare Providers: https://www.fda.gov/media/001970/download For Patients: https://www.fda.gov/media/975333/download CT ABDOMEN PELVIS WITH IV CO NTRAST [...] seen directed medially within the central anterior zcs-al-cldqy pelvis. No bowel obstruction. Some physiologic free [...] is directed medially within the central anterior jbd-og-zkbnz pelvis with no bowel obstruction. 3. Some physiologic free fluid in the cul-de-sac. Some small follicles seen in the ovaries bilaterally. Results were called by Dr. Clifford Wilson to Dr. ANDREY VALDEZ on 06/22/2020 at 16:43. GJT/yesseniab Workstation ID: [id number] Dictated by: CHAD WILSON on TueJun 22, 2020 4:45:35 PM EST Transcribed by: ROSA ISELA BOWEN on TueJun 22, 2020 5:23:52 PM EST Finalized by: CHAD WILSON on TueJun 22, 2020 8:48:07 PM EST Normal [facility] Comment on above: Order Comment: Injur [...] seen directed medially within the central anterior day-kf-uesbd pelvis. No bowel obstruction. Some physiologic free [...] is directed medially within the central anterior lub-nx-bcyps pelvis with no bowel obstruction. 3. Some physiologic free fluid in the cul-de-sac. Some small follicles seen in the ovaries bilaterally. Results were called by Dr. Clifford Wilson to Dr. ANDREY VALDEZ on 06/22/2020 at 16:43. GJT/dnb Workstation ID: [id number] 1. Acute appendiciti s. The appendix is seen just anterior to the right common iliac artery and is distended approaching 9 mm with wall enhancement and surrounding fatty stranding. 2. Moderate amount of fecal matter in the proximal colon. The cecum is directed medially within the central anterior mbd-th-hmbul pelvis with no bowel obstruction. 3. Some physiologic free fluid in the cul-de-sac. Some small follicles seen in the ovaries bilaterally. Results were called by Dr. Clifford Wilson to Dr. ANDREY VALDEZ on 06/22/2020 at 16:43. GJT/dnb Workstation ID: [id number] EXAMINATION: CT ABDO MEN PELVIS [...] seen directed medially within the central anterior oin-jc-sosfj pelvis. No bowel obstruction. Some physiologic free fluid in the cul-de-sac. Some follicles seen in the ovaries bilaterally. The uterus and urinary bladder unremarkable. No acute osseous abnormality. [facility] Comprehensive Metabolic Pane kendra 06-22-2020 Albumin [Mass/Vol] 4.0 g/dL 3.2 - 5.2 g/dL [facility] ALP [Catalytic activity/Vol] 63 U/L 40 - 140 U/L [facility] ALT [Catalytic activity/Vol] 27 U/L 14 - 65 U/L [facility] Anion gap [Moles/Vol] 10 mmol/L 10 - 20 mmol/L [facility] AST [Catalytic activity/Vol] 18 U/L 0 - 45 U/L [facility] Bilirubin [Mass/Vol] 0.5 mg/dL 0 - 1.3 mg/dL [facility] Calcium [Mass/Vol] 9.1 mg/dL 8.4 - 10. 2 mg/dL [facility] Chloride [Moles/Vol] 109 mmol/L High 98 - 108 mmol/L [facility] Creatinine [Mass/Vol] 0.83 mg/dL 0.40 - 1.10 [facility] GFR/1.73 sq M predicted among non-blacks MDRD (S/P/Bld) [Vol rate/Area] The eGFR should be used for monitoring renal function only and not for medication dosing. [facility] GFR/1.73 sq M.predicted CKD-EPI (S/P/Bld) [Vol rate/Area] 98 >=60 mL/min/1.73 m2 [facility] Glucose [Mass/Vol] 96 mg/dL 65 - 99 mg/dL [facility] H[facility]3 [Moles/Vol] 25 mmol/L 21 - 32 mmol/L [facility] Potassium [Moles/Vol] 3.7 mmol/L 3.5 - 5.1 mmol/L [facility] Protein [Mass/Vol] 7.8 g/dL 6 - 8 g/dL [facility] Sodium [Moles/Vol] 140 mmol/L 135 - 145 mmol/L [facility] Urea nitrogen [Mass/Vol] 10 mg/dL 8 - 25 mg/dL [facility] Urea nitrogen/Creatinin e [Mass ratio] 12.0 mg/mg [facility] ECG 12-LEADon 06-22-2020 Andrey Valdez MD 2019 4:57 PM ECG 12 Lead Date/Time: 06/22/2020 4:51 PM Performed by: Andrey Valdez MD Authorized by: Andrey Valdez MD Interpreted by ED attending physician Comparison: not compared with previous ECG Rhythm: sinus rhythm BPM: 85 LA Interval: 108 QRS Interval: 82 QT Interval: 426 Clinical impression: non-specific ECG [facility] Lipaseon 06-22-2020 Lipase [Catalytic activity/Vol] 72 U/L Low 73 - 393 U/L [facility] Otheron 06-22-2020 Interpretation and review of laboratory results Abnormal [facility] URINALYSISon 06-22-2020 Bacteria Auto Ql (U) Few Abnormal None Seen /hpf [facility] Bilirubin Ql (U) Negative Negative [facility] th Clarity Refractometry automated (U) Cloudy Abnormal Clear [facility] Color (U) Yellow Colorless, Yellow [facility] Epithelial cells.squamous Auto (Urine sed) [#/Area] 3 [facility] Glucose Auto test strip (U) [Mass/Vol] Negative Negative mg/dL [facility] Hemoglobin Auto test strip Ql (U) Negative Negative [facility] Interpretation and review of laboratory results Abnormal [facility] Ketones (U) [Mass/Vol] 20 Abnormal Negative mg/dL [facility] Leukocyte esterase Auto test strip Ql (U) Negative Negative [facility] Nitrite Auto test strip Ql (U) Negative Negative [facility] pH (U) 7.0 [pH] [facility] Protein (U) [Mass/Vol] Negative Negative mg/dL [facility] Specific gravity (U) [Rel density] 1.020 [facility] Urobilinogen (U) [Mass/Vol] <2.0 <2.0 mg/dL [facility] WBC Auto (Urine sed) [#/Area] 2 [facility] Microscopic examinat ion is performed on all urinalysis samples and only positive findings are reported. The test for blood on the chemical analytic portion of urinalysis may also be positive due to hemoglobinuria and myoglobinuria and if red blood cells are present they are quantified by microscopic examination. [facility] Urine Pregnancyon 06-22-2020 HCG ( test) Ql (U) Negative Negative [facility] Interpretation and review of laboratory results Normal [facility] Vital Signs Date Time Vital Sign Value Performing Clinician Faci lity 07-08-2020 15:34-0500 BP Diastolic 79 mm[Hg] [facility] 07-08-2020 15:34-0500 BP Systolic 125 mm[Hg] [facility] 07-08-2020 15:34-0500 Pulse (Heart Rate) 81 /min [facility] 07-08-2020 15:34-0500 Pulse Oximetry 99 % [facility] 07-08-2020 15:34-0500 Respiratory Rate 16 /min [facility] 07-08-2020 13:50-0500 BMI (Body Mass Index) 20.36 kg/m2 Kate [facility] 07-08-2020 13:50-0500 Body Temperature 98.49 [degF] Kate [facility] 07-08-2020 13:50-0500 Body weight 58.97 kg Kate [facility] 07-08-2020 13:50-0500 Height 170.2 cm Kate [facility] 06-23-2020 07:35-0500 Body Temperature 98.01 [degF] Andrey [facility] 06-23-2020 07:35-0500 BP Diastolic 68 mm[Hg] [facility] 06-23-2020 07:35-0500 BP Systolic 106 mm[Hg] [facility] 06-23-2020 07:35-0500 Pulse (Heart Rate) 75 /min [facility] 06-23-2020 07:35-0500 Pulse Oximetry 94 % [facility] 06-23-2020 07:35-0500 Respiratory Rate 16 /min [facility] 06-22-2020 14:15-0500 BMI (Body Mass Index) 20.36 kg/m2 [facility] 06-22-2020 14:15-0500 Body weight 58.97 kg [facility] 06-22-2020 14:15-0500 Height 170.2 cm [facility] Encounters Encounter Date Encounter Type Care Provider Facility Start: 05-08-2024 End: 05-08-2024 ambulatory ELLEN CRISTI Not Available Start: 04-24-2024 End: 04-24-2024 ambulatory CIERA DALY Not Available Start: 04-09-2024 End: 04-09-2024 ambulatory ELLEN CRISTI Not Available Start: 03-12-2024 End: 03-12-2024 ambulatory CIERA DLAY Not Available Start: 02-27-2024 End: 02-27-2024 ambulatory [...] End: 07-08-2020 Emergency department patient visit PHYSICIAN [facility] Start: 07-08-2020 End: 07-08-2020 Emergency department patient visit Kate Mendoza Work Phone: [facility] Emergency Department Comment on above: Abdominal pain, unsp ecified abdominal location (Primary Dx) Start: 06-22-2020 End: 06-23-2020 Patient encounter procedure PHYSICIAN [facility] Start: 06-22-2020 End: 06-23-2020 Emergency department patient visit Andrey Demario Work Phone: [facility] Med Surg Comment on above: Acute [...] Mendoza Work Phone: Start: 07-08-2020 Urinalysis Kate Mednoza Work Phone: Start: 06-23-2020 Complete blood count with white cell differential, automated Magdi Salazar Work Phone: Start: 06-23-2020 Complete blood count with white cell differential, manual Magdi Salazar Work Phone: Start: 06-22-2020 End: 06-22-2020 APPENDECTOMY LAPAROSCOPIC Magdi Murphy Marie Work Phone: Start: 06-22-2020 COVID-19, MOLECULAR Andrey Valdez Work Phone: Start: 06-22-2020 12 lead ECG Andrey Valdez Work Phone: Start: 06-22-2020 Ct abdomen & pelvis w/contrast material Dyer Wu Work Phone: Start: 06-22-2020 Complete blood count with white cell differential, automated Dyer Wu Work Phone: Start: 06-22-2020 Complete blood count with white cell differential, manual Andrey Valdez Work Phone: Start: 06-22-2020 Comprehensive metabolic 2000 panel - Serum or Plasma Dyer Wu Work Phone: Start: 06-22-2020 Lipase [Enzymatic activity/volume] in Serum or Plasma Andrey Wu Work Phone: Start: 06-22-2020 Choriogonadotropin ( test) [Presence] in Urine Dyer Valdez Work Phone: Start: 06-22-2020 Urinalysis Andrey Valdez Work Phone: Plan of Treatment Date Care Activity Detail Author Start: 04-22-2020 Influenza vaccination given Se quential Influenza Vaccine (#1) [facility] Start: 2012 Hepatitis C antibody , confirmatory test Hepatitis C Screening [facility] Start: 2009 HIV screening HIV Screening [facility] Start: 2006 Adolescent depressio n screening assessment Depression Screening (PHQ9) [facility] Start: 2005 Vaccination for tri n papillomavirus HPV Vaccines (1 - 2-dose series) [facility] Start: 1997 History and physical examination, annual for health maintenance Wellness Visit [facility] Start: 1994 Screening for malign ant neoplasm of cervix Pap Smear [facility] Start: 1994 Tetanus vaccination Tetanus: Every 1 0yrs [facility] Procedure on tissue specimen Tis kyara Exam Pathology and Cytology STAT Release Upon Ordering for 1 Occurrences starting 06/22/2020 [facility] Comment on above: Release Upon Orderin g for 1 Occurrences starting 06/22/2020 Payers Date Payer Category Payer Unknown [employer] PPO [id number] 2019-Present [id number] 2019 Unknown [id number] 1994 Unknown [id number] 1994 Unknown [id number] 2.840.1.452837.3.579.2.903 1994 Unknown [id number] 2.840.1.343802.3.579.2.593 1994 Unknown [id number] [id number] 1994 Unknown [id number] 2.16.840.1.449713.3.579.2.593 1994 Unknown [id number] 2.16840.1.408224.3.579.2.593 1994 Unknown [id number] 2.16.840.1.841697.3.579.2.9 1994 Unknown [id number] 2.16.840.1.742012.3.579.2.9 1994 Unknown [id number] 2.16.840.1.962116.3.579.2.1258 1994 Unknown [id number] 2.16.840.1.347654.3.579.2.1258 1994 Unknown [id number] 2.16.840.1.231316.3.579.2.1258 1994 Unknown [id number] 2.16.840.1.230943.3.579.2.1258 1994 Unknown [id number] 2.16.840.1.914780.3.579.2.1258 1994 Unknown [id number] 2.16.840.1.775048.3.579.2.1258 1994 Unknown [id number] 2.16.840.1.478989.3.579.2.1258 1994 Unknown [id number] 2.16.840.1.569410.3.579.2.9 1959 Unknown [id number] Social History Date Type Detail Facility Start: 06-23-2020 End: 07-08-2020 Tobacco smoking status MSIS Never smoker [facility] Start: 06-23-2020 End: 07-08-2020 Tobacco use and exposure Never used [facility] Start: 06-23-2020 End: 07-08-2020 Alcohol intake Ex-drinker (finding) [facility] Sex Assigned At Not on file [facility] Exposure to SARS-CoV-2 (event) Not sure [facility] Discharge Instructions * Instructions* Magdi Salazar MD - 06/23/[address] Salazar (Hernia Repair/Gallbladder) [phone] No Lifting, no bending, no pushing May [...] A MEDICAL NATURE, CALL YOUR DOCTOR/EMERGENCY ROOM. [facility] EMERGENCY ROOM [phone] Make a follow-up appointment with your surgeon. Post Operative Instructions Dr Salazra (Hernia Repair/Gallbladder) [phone] No Lifting, no bending, no pushing May [...] A MEDICAL NATURE, CALL YOUR DOCTOR/EMERGENCY ROOM. [facility] EM[facility] RO[facility] [phone] Make a follow-up appointment with your surgeon. documented in this encounter* Attachments The following attachments cannot be sent through Care Everywhere. * Abdominal Pain (Swazi) documented in this encounter Assessments Diagnosis Acute appendicitis with localized peritonitis, without perforation, abscess, or gangrene- Primary Diagnosis Abdominal pain, unspecified abdominal location- Primary Advance Directives No Advanced Directives Records FoundDocuments on File Type Date Recorded Patient Promotions Director Expl anation Advance Directives and Livin g Will 06/22/2020 1:08 PM Documents on File Type Date Recorded Patient Promotions Director Expl anation Advance Directives and Livin g [...] ion and content) Patient's name Mele Thompson, [facility] #[id number] Age [age] years old date of 1995 [...] ED Notes (unrecognized secti on and content) [facility] ED Attending Note: NAME: Mele Thompson 24 y.o. 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 Patient is to be kept n.p.o. He would like 3.375 of Zosyn given to the patient. He would like the patient admitted to his service. Clinical Impression: 1. Acute appendicitis with localized peritonitis, without perforation, abscess, or gangrene Disposition: hospitalize to Operating Room Andrey Valdez M.D. Attending Physician [facility] 06/22/2020 Portions of this note [...] y.o. : 1995 VISIT DATE: 07/08/2020 CSN: [id number] PCP: Physician No Chief Complaint Patient presents [...] file Gets together: Not on file Attends orthodox service: Not on file Active member of [...] Colorless, Yellow Clarity, Urine Clear Clear Specific [place] 1.020 1.005 - 1.025 pH, Urine 7.5 [...] 1. Magdi Salazar MD. Specialty: General Surgery [address] [place] [id number] Contact information for after-discharge care Follow-up information [...] change in drainage on op-sites. MELE THOMPSON [id number] 1995 DATE 06/22/2020 OPERATIVE REPORT SURGEON MAGDI [...] utilizing 0 Ethibond with an open technique. Xuuikd-[id number] suture was placed after complete desufflation of [...] appendicitis. MAGDI SALAZAR MD D 06/22/2020 20:33 [id number] T 06/23/2020 01:38 VMT/MODL Umbilical dressing saturated with light pink serous drainage.Pubic dressing 1/2 saturated with shadow of pink drainage. Brief Post Operative Note Patient Name: Mele Thompson : 1995 (24 y.o.) Date of Service: 06/22/2020 CSN: [id number] Procedure(s): APPENDECTOMY LAPAROSCOPIC Pre-Operative Diagnoses: RIGHT SIDED ABDOMINAL PAIN - ACUTE APPENDICITIS Post-Operative Diagnoses: ACUTE RETROCECAL APPENDICITIS Surgeon(s) and Role: * Magdi Salazar MD - Primary Anesthesiologist: Jaylin Buckley MD Continuous Mining Machine Coal Miner: Tanisha Varghese RN Scrub Person Assist: Jadyn [...] previous ECG Rhythm: sinus rhythm BPM: 85 LA Interval: 108 QRS Interval: 82 QT Interval: 426 Clinical impression: non-specific ECG documented in this encounter INFORMATION SOURCE (unrecogn ized section and content) DATE CREATED AUTHOR 07/13/2020 [facility] DATE CREATED AUTHOR AUTHOR'S ORGANIZ ATION 01/28/2023 [facility] DATE CREATED AUTHOR AUTHOR'S ORGANIZ ATION 05/10/2024 [facility] FOR RECORDS PERTAINING TO PATIENTS WHO [...] BE BASED ON THE PRIMARY CLINICAL RECORDS. [employer] provides no warranty or guarantee of the accuracy or completeness of information in this document.
[2024-05-11 12:19] VITALS: BP 116/59; PULSE 123
== END 2024-05-11 12:55 | disposition home or self-care (01) ==
LOC: FBCO 07:42 → FBC 12:07
PROVIDERS: PCP Obstetrics & Gynecology; Visit Provider Obstetrics & Gynecology
DX: O43.893 Other placental disorders, third trimester (principal); Z3A.36 36 weeks gestation of pregnancy
CPT/HCPCS: 59025

== ENCOUNTER 2024-05-15 07:23 | Outpatient (OUT) | payer BC, SELFPAY ==
--- OUTSIDE RECORDS SUMMARY | 2024-05-15 07:25 | XMS_ITS | CCD ---
Author Organization [facility] Care Team Providers Care Radiological Metallurgist Name Role Phone No, Physician Primary Care [...] HCGon 01-19-2023 HCG QUANT 67 mIU/mL Normal [facility] Comment on above: Performed By: #### P REGQNT #### [facility] [address] [place] [address] Dr. Tammi Fleming HCG RANGE SEE BELOW Normal [facility] Comment on above: Result Comment: 5-50 0.2-1 WEEK 50-500 1-2 WEEKS 100-5,000 2-3 WEEKS 500-10,000 3-4 WEEKS 1,000-50,000 4-5 WEEKS 10,000-100,000 5-6 WEEKS 15,000-200,000 6-8 WEEKS 10,000-100,000 2-3 MONTHS Performed By: #### P REGQNT #### [facility] [address] [place] [address] Dr. Tammi Fleming PREG QUANT HCGon 01-10-2023 HCG QUANT 231 mIU/mL Normal [facility] Comment on above: Performed By: #### P REGQNT #### [facility] [address] [place] [address] Dr. Tammi Fleming HCG RANGE SEE BELOW Normal [facility] Comment on above: Result Comment: 5-50 0.2-1 WEEK 50-500 1-2 WEEKS 100-5,000 2-3 WEEKS 500-10,000 3-4 WEEKS 1,000-50,000 4-5 WEEKS 10,000-100,000 5-6 WEEKS 15,000-200,000 6-8 WEEKS 10,000-100,000 2-3 MONTHS Performed By: #### P REGQNT #### [facility] [address] [place] [address] Dr. Tammi Fleming CBC AUTO DIFFon 01-04-2023 BASO # 0.0 103/ul Normal 0.0-0.1 [facility] Comment on above: Performed By: #### C BC #### [facility] [address] [place] [address] Dr. Tammi Fleming Basophils/100 WBC (Bld) 0.3 % Normal 0.2-2.0 [facility] Comment on above: Performed By: #### C BC #### [facility] [address] [place] [address] Dr. Tammi Fleming EO # 0.1 103/ul Normal 0.0-0.7 [facility] Comment on above: Performed By: #### C BC #### [facility] [address] [place] [address] Dr. Tammi Fleming Eosinophils/100 WBC (Bld) 0.8 % Critically low 0.9-7.0 [facility] Comment on above: Performed By: #### C BC #### [facility] [address] [place] [address] Dr. Tammi Fleming Erythrocyte distribution width (RBC) [Ratio] 12.0 % Normal 11.0-15.0 [facility] Comment on above: Performed By: #### C BC #### [facility] [address] [place] [address] Dr. Tammi Fleming Hematocrit (Bld) [Volume fraction] 42.6 % Normal 36.0-48.0 [facility] Comment on above: Performed By: #### C BC #### [facility] [address] [place] [address] Dr. Tammi Fleming Hemoglobin (Bld) [Mass/Vol] 14.5 g/dL Normal 12.0-16.[address] [facility] Comment on above: Performed By: #### C BC #### [facility] [address] [place] [address] Dr. Tammi Fleming IG # 0.02 10e3/ul Normal 0.00-0.03 [facility] Comment on above: Performed By: #### C BC #### [facility] [address] [place] [address] Dr. Tammi Fleming IG % 0.3 % Normal 0.0-0.5 [facility] Comment on above: Performed By: #### C BC #### [facility] [address] [place] [address] Dr. Tammi Fleming LYMPH # 1.6 103/ul Normal 1.2-3.[address] [facility] Comment on above: Performed By: #### C BC #### [facility] [address] [place] [address] Dr. Tammi Fleming Lymphocytes/100 WBC (Bld) 19.9 % Critically low 20.5-60.0 [facility] Comment on above: Performed By: #### C BC #### [facility] [address] [place] [address] Dr. Tammi Fleming MANUAL DIFF REQ NO Normal [facility] Comment on above: Performed By: #### C BC #### [facility] [address] [place] [address] Dr. Tammi Fleming MCH (RBC) [Entitic mass] 29.8 pg Normal 26.7-34.0 [facility] Comment on above: Performed By: #### C BC #### [facility] [address] [place] [address] Dr. Tammi Fleming MCHC (RBC) [Mass/Vol] 34.0 g/dL Normal 29.9-35.2 [facility] Comment on above: Performed By: #### C BC #### [facility] [address] [address] [address] Tammi Fleming MCV (RBC) [Entitic vol] 87.7 fL Normal 81.0-99.0 [facility] Comment on above: Performed By: #### C BC #### [facility] [address] [address] [address] Tammi Fleming MONO # 0.4 103/ul Normal 0.3-0.8 [facility] Comment on above: Performed By: #### C BC #### [facility] [address] [place] [address] Dr. Tammi Fleming Monocytes/100 WBC (Bld) 5.0 % Normal 1.7-12.0 [facility] Comment on above: Performed By: #### C BC #### [facility] [address] [place] [address] Dr. Tammi Fleming NEUT # 5.8 103/ul Normal 1.4-6.5 [facility] Comment on above: Performed By: #### C BC #### [facility] [address] [place] [address] Dr. Tammi Fleming Neutrophils/100 WBC (Bld) 73.7 % Normal 43.0-75.0 [facility] Comment on above: Performed By: #### C BC #### [facility] [address] [place] [address] Dr. Tammi Fleming Platelet mean volume (Bld) [Entitic vol] 12.1 fL Normal 9.5-13.[address] [facility] Comment on above: Performed By: #### C BC #### [facility] [address] [place] [address] Dr. Tammi Fleming PLT 184 103/ul Normal 150-[address] [facility] Comment on above: Performed By: #### C BC #### [facility] [address] [place] [address] Dr. Tammi Fleming RBC 4.86 106/ul Normal 4.20-5.40 [facility] Comment on above: Performed By: #### C BC #### [facility] [address] [place] [address] Dr. Tammi Flmeing WBC 7.9 103/ul Normal 4.0-11.0 [facility] Comment on above: Performed By: #### C BC #### [facility] [address] [place] [address] Dr. Tammi Fleming ER URINE PROFILEon 3 Bilirubin Ql (U) Negative Normal NEGATIVE [facility] Comment on above: Performed By: #### Angela RUR, UMICRO #### [facility] [address] [place] [address] Dr. Tammi Fleming Clarity (U) CLEAR Normal CLEAR [facility] Comment on above: Performed By: #### Angela CHRISTIE UMICRO #### [facility] [address] [place] [address] Dr. Tammi Fleming Color (U) LT. YELLOW Normal YELLOW [facility] Comment on above: Performed By: #### Angela CHRISTIE UMICRO #### [facility] [address] [place] [address] Dr. Tammi RAY A micrscopic examina tion will be performed if indicated. Normal [facility] Comment on above: Performed By: #### Angela CHRISTIE UMICRO #### [facility] [address] [place] [address] Dr. Tammi Fleming Glucose Ql (U) Negative Normal NEGATIVE [facility] Comment on above: Performed By: #### Angela RODRIGUEZR, UMICRO #### [facility] [address] [place] [address] Dr. Tammi Fleming Hemoglobin Ql (U) LARGE Abnormal NEGATIVE [facility] Comment on above: Performed By: #### Angela CHRISTIE, UMICRO #### [facility] [address] [place] [address] Dr. Tammi Fleming Ketones Ql (U) Negative Normal NEGATIVE [facility] Comment on above: Performed By: #### E RUR, UMICRO #### [facility] [address] [place] [address] Dr. Tammi Fleming LEUKOCYTES Negative Normal NEGATIVE [facility] Comment on above: Performed By: #### CIRILO SORTO #### [facility] [address] [place] [address] Dr. Tammi Fleming Nitrite Ql (U) Negative Normal NEGATIVE [facility] Comment on above: Performed By: #### CIRILO SORTO #### [facility] [address] [place] [address] Dr. Tammi Fleming pH (U) 7.0 [pH] Normal 5-9 [facility] Comment on above: Performed By: #### CIRILO SORTO #### [facility] [address] [place] [address] Dr. Tammi Fleming SPEC GRAVITY <=1.005 Abnormal 1.005-<=1.025 [facility] Comment on above: Performed By: #### CIRILO SORTO #### [facility] [address] [place] [address] Dr. Tammi Fleming UA PROTEIN Negative Normal NEGATIVE/ TRACE [facility] Comment on above: Performed By: #### CIRILO SORTO #### [facility] [address] [place] [address] Dr. Tammi Fleming UR MICRO IND INDICATED Normal [facility] Comment on above: Performed By: #### CIRILO SORTO #### [facility] [address] [place] [address] Dr. Tammi Fleming Urobilinogen Qn (U) 0.2 {Elder'U}/dL Normal 0.2 - 1.0 [facility] Comment on above: Performed By: #### CIRILO SORTO #### [facility] [address] [place] [address] Dr. Tammi Fleming PREG QUANT HCGon 01-04-2023 HCG QUANT 4523 mIU/mL Normal [facility] Comment on above: Performed By: #### P REGQNT #### [facility] [address] [place] [address] Dr. Tammi Fleming HCG RANGE SEE BELOW Normal [facility] Comment on above: Result Comment: 5-50 0.2-1 WEEK 50-500 1-2 WEEKS 100-5,000 2-3 WEEKS 500-10,000 3-4 WEEKS 1,000-50,000 4-5 WEEKS 10,000-100,000 5-6 WEEKS 15,000-200,000 6-8 WEEKS 10,000-100,000 2-3 MONTHS Performed By: #### P REGQNT #### [facility] [address] [place] [address] Dr. Tammi Fleming URINE MICROSCOPIC ONLYon BACTERIA TRACE Abnormal NONE SEEN [facility] Comment on above: Performed By: #### Angela CHRISTIE UMICRO #### [facility] [address] [place] [address] Dr. Tammi Fleming Bacteria identified Cx Nom (U) NOT INDICATED Normal [facility] Comment on above: Performed By: #### Angela CHRISTIE UMICRO #### [facility] [address] [place] [address] Dr. Tammi Fleming CAST NONE SEEN Normal NONE SEEN [facility] Comment on above: Performed By: #### Angela CHRISTIE UMICRO #### [facility] [address] [place] [address] Dr. Tammi Fleming Crystals LM Nom (Urine sed) NONE SEEN Normal NONE SEEN [facility] Comment on above: Performed By: #### Angela CHRISTIE UMICRO #### [facility] [address] [place] [address] Dr. Tammi Fleimng Epithelial cells LM Ql (Urine sed) NONE SEEN Normal NONE SEEN /RARE [facility] Comment on above: Performed By: #### Angela CHRISTIE UMICRO #### [facility] [address] [place] [address] Dr. Tammi Fleming MUCOUS NONE SEEN Normal NONE SEEN [facility] Comment on above: Performed By: #### Angela CHRISTIE UMICRO #### [facility] [address] [place] [address] Dr. Tammi Fleming RBC 2-5 Abnormal 0-[address] [facility] Comment on above: Performed By: #### E CIRILO CHRISTIE #### [facility] [address] [place], [place] [address] Dr. Tammi Fleming WBC NONE SEEN Normal NONE SEEN [facility] Comment on above: Performed By: #### E CIRILO CHRISTIE #### [facility] [address] [place], [place] [address] Dr. Tammi Fleming US PREG TVon 01-04-2023 [...] DEYVI FELDER Date: 2023-01-04 18:08 Normal [facility] BMPon 07-08-2020 Anion gap [Moles/Vol] 11 mmol/L 10 - 20 mmol/L [facility] Calcium [Mass/Vol] 9.5 mg/dL 8.4 - 10. 2 mg/dL [facility] Chloride [Moles/Vol] 109 mmol/L High 98 - 108 mmol/L [facility] Creatinine [Mass/Vol] 0.85 mg/dL 0.40 - 1.10 [facility] GFR/1.73 sq M predicted among non-blacks MDRD (S/P/Bld) [Vol rate/Area] The eGFR should be used for monitoring renal function only and not for medication dosing. [facility] GFR/1.73 sq M.predicted CKD-EPI (S/P/Bld) [Vol rate/Area] 96 >=60 mL/min/1.73 m2 [facility] Glucose [Mass/Vol] 95 mg/dL 65 - 99 mg/dL [facility] HCO3 [Moles/Vol] 23 mmol/L 21 - 32 mmol/L [facility] Interpretation and review of laboratory results Abnormal [facility] Potassium [Moles/Vol] 3.5 mmol/L 3.5 - 5.1 mmol/L [facility] Sodium [Moles/Vol] 139 mmol/L 135 - 145 mmol/L [facility] Urea nitrogen [Mass/Vol] 10 mg/dL 8 - 25 mg/dL [facility] Urea nitrogen/Creatinin e [Mass ratio] 11.8 mg/mg [facility] CBC WITH AUTO DIFFERENTIALon 07-08-2020 Basophils (Bld) [#/Vol] 0.02 10*3/uL [facility] Basophils/100 WBC (Bld) 0.2 % [facility] Eosinophils (Bld) [#/Vol] 0.04 10*3/uL [facility] Eosinophils/100 WBC (Bld) 0.5 % [facility] Erythrocyte distribution width (RBC) [Entitic vol] 12.0 % 11.6 - 14.8 % [facility] Hematocrit (Bld) [Volume fraction] 43.3 % 36 - 46 % [facility] Hemoglobin (Bld) [Mass/Vol] 14.7 g/dL 12 - 16 g/dL [facility] Immature granulocytes (Bld) [#/Vol] 0.00 10*3/uL [facility] Immature granulocytes/100 WBC (Bld) 0.00 % [facility] Comment on above: The IG parameter is the percentage of metamyelocytes, myelocytes and promyelocytes. An immature granulocyte count (IG) of 1% or more suggests the possibility of infection, an IG count of 3% is very likely related to an infection. Lymphocytes (Bld) [#/Vol] 2.44 10*3/uL [facility] Lymphocytes/100 WBC (Bld) 30.2 % [facility] MCH (RBC) [Entitic mass] 29.2 pg 26 - 34 pg [facility] MCHC (RBC) [Mass/Vol] 33.9 g/dL 31 - 37 g/dL [facility] MCV (RBC) [Entitic vol] 86.1 fL 80 - 100 fL [facility] Monocytes (Bld) [#/Vol] 0.40 10*3/uL [facility] Monocytes/100 WBC (Bld) 5.0 % [facility] Neutrophils (Bld) [#/Vol] 5.17 10*3/uL [facility] Neutrophils/100 WBC (Bld) 64.1 % [facility] Platelet mean volume (Bld) [Entitic vol] 11.8 fL 9.4 - 12.4 fL [facility] Platelets (Bld) [#/Vol] 228 10*3/uL [facility] RBC (Bld) [#/Vol] 5.03 10*6/uL [facility] ealt WBC (Bld) [#/Vol] 8.07 10*3/uL [facility] ealt CT ABDOMEN PELVIS WITH IV [...] Co ntrast Onlyon 07-08-2020 Interface, Rad In [facility] - 07/08/2020 4:02 PM EST EXAMINATION: CT [...] changes from recent appendectomy. Workstation ID: [id number] [facility] EXAMINATION: CT ABDO MEN PELVIS [...] No acute or aggressive osseous abnormality identified. [facility] 1. No acute infectio us, inflammatory or obstructive process identified in the abdomen or pelvis. 2. Postsurgical changes from recent appendectomy. Workstation ID: [id number] [facility] Hepatic Function Panel (LFT) on 07-08-2020 Albumin [Mass/Vol] 3.8 g/dL 3.2 - 5.2 g/dL [facility] ALP [Catalytic activity/Vol] 71 U/L 40 - 140 U/L [facility] ALT [Catalytic activity/Vol] 31 U/L 14 - 65 U/L [facility] AST [Catalytic activity/Vol] 18 U/L 0 - 45 U/L [facility] Bilirubin [Mass/Vol] 0.3 mg/dL 0 - 1.3 mg/dL [facility] Bilirubin.conjugat ed [Mass/Vol] mg/dL 0 - 0.4 mg/dL [facility] Protein [Mass/Vol] 7.9 g/dL 6 - 8 g/dL [facility] alth Lipaseon 07-08-2020 Lipase [Catalytic activity/Vol] 95 U/L 73 - 393 U/L [facility] Otheron 07-08-2020 Interpretation and review of laboratory results Normal [facility] Extra Tube Hold for add-ons. [facility] Comment on above: Auto resulted. URINALYSISon 07-08-2020 Bacteria Auto Ql (U) Rare Abnormal None Seen /hpf [facility] Bilirubin Ql (U) Negative Negative [facility] th Clarity Refractometry automated (U) Clear Clear [facility] Color (U) Yellow Colorless, Yellow [facility] Epithelial cells.squamous Auto (Urine sed) [#/Area] 1 [facility] Glucose Auto test strip (U) [Mass/Vol] Negative Negative mg/dL [facility] Hemoglobin Auto test strip Ql (U) Negative Negative [facility] Interpretation and review of laboratory results Abnormal [facility] Ketones (U) [Mass/Vol] Negative Negative mg/dL [facility] Leukocyte esterase Auto test strip Ql (U) Negative Negative [facility] Nitrite Auto test strip Ql (U) Negative Negative [facility] pH (U) 7.5 [pH] High [facility] Protein (U) [Mass/Vol] Negative Negative mg/dL [facility] Specific gravity (U) [Rel density] 1.020 [facility] Urobilinogen (U) [Mass/Vol] <2.0 <2.0 mg/dL [facility] Microscopic examinat ion is performed on all urinalysis samples and only positive findings are reported. The test for blood on the chemical analytic portion of urinalysis may also be positive due to hemoglobinuria and myoglobinuria and if red blood cells are present they are quantified by microscopic examination. [facility] Urine Pregnancyon 07-08-2020 HCG ( test) Ql (U) Negative Negative [facility] Interpretation and review of laboratory results Normal [facility] CBC WITH AUTO DIFFERENTIALon 06-23-2020 Basophils (Bld) [#/Vol] 0.00 10*3/uL [facility] Basophils/100 WBC (Bld) 0.0 % [facility] Eosinophils (Bld) [#/Vol] 0.00 10*3/uL [facility] Eosinophils/100 WBC (Bld) 0.0 % [facility] Erythrocyte distribution width (RBC) [Entitic vol] 12.2 % 11.6 - 14.8 % [facility] Hematocrit (Bld) [Volume fraction] 37.2 % 36 - 46 % [facility] Hemoglobin (Bld) [Mass/Vol] 12.6 g/dL 12 - 16 g/dL [facility] Immature granulocytes (Bld) [#/Vol] 0.01 10*3/uL [facility] Immature granulocytes/100 WBC (Bld) 0.10 % [facility] Comment on above: The IG parameter is the percentage of metamyelocytes, myelocytes and promyelocytes. An immature granulocyte count (IG) of 1% or more suggests the possibility of infection, an IG count of 3% is very likely related to an infection. Interpretation and review of laboratory results Abnormal [facility] Lymphocytes (Bld) [#/Vol] 0.82 10*3/uL Low [facility] Lymphocytes/100 WBC (Bld) 6.8 % [facility] MCH (RBC) [Entitic mass] 29.3 pg 26 - 34 pg [facility] MCHC (RBC) [Mass/Vol] 33.9 g/dL 31 - 37 g/dL [facility] MCV (RBC) [Entitic vol] 86.5 fL 80 - 100 fL [facility] Monocytes (Bld) [#/Vol] 0.31 10*3/uL [facility] Monocytes/100 WBC (Bld) 2.6 % [facility] Neutrophils (Bld) [#/Vol] 10.86 10*3/uL High [facility] Neutrophils/100 WBC (Bld) 90.5 % [facility] Platelet mean volume (Bld) [Entitic vol] 12.1 fL 9.4 - 12.4 fL [facility] Platelets (Bld) [#/Vol] 197 10*3/uL [facility] RBC (Bld) [#/Vol] 4.30 10*6/uL [facility] WBC (Bld) [#/Vol] 12.00 10*3/uL [facility] CBC WITH AUTO DIFFERENTIALon 06-22-2020 Basophils (Bld) [#/Vol] 0.02 10*3/uL [facility] Basophils/100 WBC (Bld) 0.1 % [facility] Eosinophils (Bld) [#/Vol] 0.00 10*3/uL [facility] Eosinophils/100 WBC (Bld) 0.0 % [facility] Erythrocyte distribution width (RBC) [Entitic vol] 12.0 % 11.6 - 14.8 % [facility] Hematocrit (Bld) [Volume fraction] 40.2 % 36 - 46 % [facility] Hemoglobin (Bld) [Mass/Vol] 14.0 g/dL 12 - 16 g/dL [facility] Immature granulocytes (Bld) [#/Vol] 0.02 10*3/uL [facility] Immature granulocytes/100 WBC (Bld) 0.10 % [facility] Comment on above: The IG parameter is the percentage of metamyelocytes, myelocytes and promyelocytes. An immature granulocyte count (IG) of 1% or more suggests the possibility of infection, an IG count of 3% is very likely related to an infection. Interpretation and review of laboratory results Abnormal [facility] Lymphocytes (Bld) [#/Vol] 1.20 10*3/uL [facility] Lymphocytes/100 WBC (Bld) 5.9 % [facility] MCH (RBC) [Entitic mass] 29.4 pg 26 - 34 pg [facility] MCHC (RBC) [Mass/Vol] 34.8 g/dL 31 - 37 g/dL [facility] MCV (RBC) [Entitic vol] 84.5 fL 80 - 100 fL [facility] Monocytes (Bld) [#/Vol] 0.67 10*3/uL [facility] Monocytes/100 WBC (Bld) 3.3 % [facility] Neutrophils (Bld) [#/Vol] 18.51 10*3/uL [facility] Neutrophils/100 WBC (Bld) 90.6 % [facility] Platelet mean volume (Bld) [Entitic vol] 11.7 fL 9.4 - 12.4 fL [facility] Platelets (Bld) [#/Vol] 223 10*3/uL [facility] RBC (Bld) [#/Vol] 4.76 10*6/uL [facility] ealt WBC (Bld) [#/Vol] 20.42 10*3/uL [facility] COVID-19, MOLECULARon 2019 SARS-COV-2 (BERG ID) Not Detected Normal Not Detected [facility] Comment on above: Result Comment: This [...] at the following links: For Healthcare Providers: https://www.fda.gov/media/936574/download For Patients: https://www.fda.gov/media/802466/download Performed By: #### L [id number] #### [address] [place] [address] Kenneth Arrieta M.D. [id number] COVID-19, Molecularon 2019 Interpretation and review of laboratory results Normal [facility] SARS-CoV-2 Not Detected Not Detected [facility] Comment on above: This test [...] at the following links: For Healthcare Providers: https://www.fda.gov/media/545741/download For Patients: https://www.fda.gov/media/305871/download CT ABDOMEN PELVIS WITH IV CO NTRAST [...] seen directed medially within the central anterior xgy-dx-fgtsy pelvis. No bowel obstruction. Some physiologic free [...] is directed medially within the central anterior pgk-lj-pspxf pelvis with no bowel obstruction. 3. Some [...] seen directed medially within the central anterior cbn-js-iwsow pelvis. No bowel obstruction. Some physiologic free [...] is directed medially within the central anterior xpd-in-bahma pelvis with no bowel obstruction. 3. Some physiologic free fluid in the cul-de-sac. Some small follicles seen in the ovaries bilaterally. Results were called by Dr. Clifford Wilson to Dr. ANDREY VALDEZ on 06/22/2020 at 16:43. GJT/dnb Workstation ID: [id number] 1. Acute appendiciti s. The appendix is seen just anterior to the right common iliac artery and is distended approaching 9 mm with wall enhancement and surrounding fatty stranding. 2. Moderate amount of fecal matter in the proximal colon. The cecum is directed medially within the central anterior xrb-he-fwgtf pelvis with no bowel obstruction. 3. Some physiologic free fluid in the cul-de-sac. Some small follicles seen in the ovaries bilaterally. Results were called by Dr. Clifford Wilson to Dr. ANDREY VALDEZ on 06/22/2020 at 16:43. GJT/dnb Workstation ID: [id number] EXAMINATION: CT ABDO MEN PELVIS WITH [...] seen directed medially within the central anterior qsj-vu-zualf pelvis. No bowel obstruction. Some physiologic free fluid in the cul-de-sac. Some follicles seen in the ovaries bilaterally. The uterus and urinary bladder unremarkable. No acute osseous abnormality. [facility] Comprehensive Metabolic Pane kendra 06-22-2020 Albumin [Mass/Vol] 4.0 g/dL 3.2 - 5.2 g/dL [facility] ALP [Catalytic activity/Vol] 63 U/L 40 - 140 U/L [facility] ALT [Catalytic activity/Vol] 27 U/L 14 - 65 U/L [facility] Anion gap [Moles/Vol] 10 mmol/L 10 - 20 mmol/L [facility] AST [Catalytic activity/Vol] 18 U/L 0 - 45 U/L [facility] Bilirubin [Mass/Vol] 0.5 mg/dL 0 - 1.3 mg/dL [facility] Calcium [Mass/Vol] 9.1 mg/dL 8.4 - 10. 2 mg/dL [facility] Chloride [Moles/Vol] 109 mmol/L High 98 - 108 mmol/L [facility] Creatinine [Mass/Vol] 0.83 mg/dL 0.40 - 1.10 [facility] GFR/1.73 sq M predicted among non-blacks MDRD (S/P/Bld) [Vol rate/Area] The eGFR should be used for monitoring renal function only and not for medication dosing. [facility] GFR/1.73 sq M.predicted CKD-EPI (S/P/Bld) [Vol rate/Area] 98 >=60 mL/min/1.73 m2 [facility] Glucose [Mass/Vol] 96 mg/dL 65 - 99 mg/dL [facility] HCO3 [Moles/Vol] 25 mmol/L 21 - 32 mmol/L [facility] Potassium [Moles/Vol] 3.7 mmol/L 3.5 - 5.1 mmol/L [facility] Protein [Mass/Vol] 7.8 g/dL 6 - 8 g/dL [facility] Sodium [Moles/Vol] 140 mmol/L 135 - 145 mmol/L [facility] Urea nitrogen [Mass/Vol] 10 mg/dL 8 - 25 mg/dL [facility] Urea nitrogen/Creatinin e [Mass ratio] 12.0 mg/mg [facility] ECG 12-LEADon 06-22-2020 Andrey Valdez MD 2019 4:57 PM ECG 12 Lead Date/Time: 06/22/2020 4:51 PM Performed by: Andrey Valdez MD Authorized by: Andrey Valdez MD Interpreted by ED attending physician Comparison: not compared with previous ECG Rhythm: sinus rhythm BPM: 85 SC Interval: 108 QRS Interval: 82 QT Interval: 426 Clinical impression: non-specific ECG [facility] Lipaseon 06-22-2020 Lipase [Catalytic activity/Vol] 72 U/L Low 73 - 393 U/L [facility] Otheron 06-22-2020 Interpretation and review of laboratory results Abnormal [facility] URINALYSISon 06-22-2020 Bacteria Auto Ql (U) Few Abnormal None Seen /hpf [facility] Bilirubin Ql (U) Negative Negative [facility] th Clarity Refractometry automated (U) Cloudy Abnormal Clear [facility] Color (U) Yellow Colorless, Yellow [facility] Epithelial cells.squamous Auto (Urine sed) [#/Area] 3 [facility] Glucose Auto test strip (U) [Mass/Vol] Negative Negative mg/dL [facility] Hemoglobin Auto test strip Ql (U) Negative Negative [facility] Interpretation and review of laboratory results Abnormal [facility] Ketones (U) [Mass/Vol] 20 Abnormal Negative mg/dL [facility] Leukocyte esterase Auto test strip Ql (U) Negative Negative [facility] Nitrite Auto test strip Ql (U) Negative Negative [facility] pH (U) 7.0 [pH] [facility] Protein (U) [Mass/Vol] Negative Negative mg/dL [facility] Specific gravity (U) [Rel density] 1.020 [facility] Urobilinogen (U) [Mass/Vol] <2.0 <2.0 mg/dL [facility] WBC Auto (Urine sed) [#/Area] 2 [facility] Microscopic examinat ion is performed on all urinalysis samples and only positive findings are reported. The test for blood on the chemical analytic portion of urinalysis may also be positive due to hemoglobinuria and myoglobinuria and if red blood cells are present they are quantified by microscopic examination. [facility] Urine Pregnancyon 06-22-2020 HCG ( test) Ql (U) Negative Negative [facility] Interpretation and review of laboratory results Normal [facility] Vital Signs Date Time Vital Sign Value Performing Clinician Faci lity 07-08-2020 15:34-0500 BP Diastolic 79 mm[Hg] [facility] 07-08-2020 15:34-0500 BP Systolic 125 mm[Hg] [facility] 07-08-2020 15:34-0500 Pulse (Heart Rate) 81 /min [facility] 07-08-2020 15:34-0500 Pulse Oximetry 99 % [facility] 07-08-2020 15:34-0500 Respiratory Rate 16 /min [facility] 07-08-2020 13:50-0500 BMI (Body Mass Index) 20.36 kg/m2 Kate [facility] 07-08-2020 13:50-0500 Body Temperature 98.49 [degF] Kate [facility] 07-08-2020 13:50-0500 Body weight 58.97 kg Kate [facility] 07-08-2020 13:50-0500 Height 170.2 cm Kate [facility] 06-23-2020 07:35-0500 Body Temperature 98.01 [degF] Andrey [place] 06-23-2020 07:35-0500 BP Diastolic 68 mm[Hg] [facility] 06-23-2020 07:35-0500 BP Systolic 106 mm[Hg] [facility] 06-23-2020 07:35-0500 Pulse (Heart Rate) 75 /min [facility] 06-23-2020 07:35-0500 Pulse Oximetry 94 % [facility] 06-23-2020 07:35-0500 Respiratory Rate 16 /min [facility] 06-22-2020 14:15-0500 BMI (Body Mass Index) 20.36 kg/m2 [facility] 06-22-2020 14:15-0500 Body weight 58.97 kg [facility] 06-22-2020 14:15-0500 Height 170.2 cm [facility] Encounters Encounter Date Encounter Type Care [...] Not Available Start: 10-27-2023 End: 10-27-2023 ambulatory ELELN CRISTI Not Available Start: 09-12-2023 End: 09-12-2023 ambulatory ELLEN CRISTI Not Available Start: 01-19-[address] NONE LISTED REQUEST Facility: Start: 01-14-[address] NONE LISTED REQUEST Facility: Start: 01-10-2023 End: 01-11-[address] NONE LISTED REQUEST Facility: Start: 01-04-2023 End: 01-04-[address] NONE LISTED REQUEST Facility: Start: 07-08-2020 End: 07-08-2020 Emergency department patient visit PHYSICIAN [facility] Start: 07-08-2020 End: 07-08-2020 Emergency department patient visit Kate Mendoza Work Phone: [facility] Emergency Department Comment on above: Abdominal pain, unsp ecified abdominal location (Primary Dx) Start: 06-22-2020 End: 06-23-2020 Patient encounter procedure PHYSICIAN [facility] Start: 06-22-2020 End: 06-23-2020 Emergency department patient visit Andrey Demario Work Phone: [facility] Med Surg Comment [...] 06-22-2020 Ct abdomen & pelvis w/contrast material Marne Wu Work Phone: Start: 06-22-2020 Complete blood count with white cell differential, automated Marne Wu Work Phone: Start: 06-22-2020 Complete blood count with white cell differential, manual Andrey Valdez Work Phone: Start: 06-22-2020 Comprehensive metabolic 2000 panel - Serum or Plasma Marne Wu Work Phone: Start: 06-22-2020 Lipase [Enzymatic activity/volume] in Serum or Plasma Andrey Wu Work Phone: Start: 06-22-2020 Choriogonadotropin ( test) [Presence] in Urine Marne Valdez Work Phone: Start: 06-22-2020 Urinalysis Andrey Valdez Work Phone: Plan of Treatment Date Care Activity Detail Author Start: 04-22-2020 Influenza vaccination given Se quential Influenza Vaccine (#1) [facility] Start: 2012 Hepatitis C antibody , confirmatory test Hepatitis C Screening [facility] Start: 2009 HIV screening HIV Screening [facility] Start: 2006 Adolescent depressio n screening assessment Depression Screening (PHQ9) [facility] Start: 2005 Vaccination for tri n papillomavirus HPV Vaccines (1 - 2-dose series) [facility] Start: 1997 History and physical examination, annual for health maintenance Wellness Visit [facility] Start: 1994 Screening for malign ant neoplasm of cervix Pap Smear [facility] Start: 1994 Tetanus vaccination Tetanus: Every 1 0yrs [facility] Procedure on tissue specimen Tis kyara Exam Pathology and Cytology STAT Release Upon Ordering for 1 Occurrences starting 06/22/2020 [facility] Comment on above: Release Upon Orderin g for 1 Occurrences starting 06/22/2020 Payers Date Payer Category Payer Unknown [employer] PPO [id number] 2019-Present [id number] 2019 Unknown [id number] 1994 Unknown [id number] 1994 Unknown [id number] [id number] 1994 Unknown [id number] [id number] 1994 Unknown [id number] [id number] 1994 Unknown [id number] 2.16.840.1.357472.3.579.2.593 1994 Unknown [id number] 2.16840.1.483191.3.579.2.593 1994 Unknown [id number] 2.16.840.1.009702.3.579.2.9 1994 Unknown [id number] 2.16.840.1.245815.3.579.2.9 1994 Unknown [id number] 2.16.840.1.237071.3.579.2.1258 1994 Unknown [id number] 2.16.840.1.184378.3.579.2.1258 1994 Unknown [id number] 2.16.840.1.348458.3.579.2.1258 1994 Unknown [id number] 2.16.840.1.804013.3.579.2.1258 1994 Unknown [id number] 2.16.840.1.392289.3.579.2.1258 1994 Unknown [id number] 2.16.840.1.492877.3.579.2.1258 1994 Unknown [id number] 2.16.840.1.299179.3.579.2.1258 1994 Unknown [id number] 2.16.840.1.907108.3.579.2.9 1959 Unknown [id number] Social History Date Type Detail Facility Start: 06-23-2020 End: 07-08-2020 Tobacco smoking status DEIS Never smoker [facility] Start: 06-23-2020 End: 07-08-2020 Tobacco use and exposure Never used [facility] Start: 06-23-2020 End: 07-08-2020 Alcohol intake Ex-drinker (finding) [facility] Sex Assigned At Not on file [facility] Exposure to SARS-CoV-2 (event) Not sure [facility] Discharge Instructions * Instructions* Magdi Salazar MD - 06/23/[address] Salazar (Hernia Repair/Gallbladder) [phone] No Lifting, no bending, no pushing May [...] A MEDICAL NATURE, CALL YOUR DOCTOR/EMERGENCY ROOM. [facility] EMERGENCY ROOM [phone] Make a follow-up appointment with your surgeon. Post Operative Instructions Dr Salazar (Hernia Repair/Gallbladder) [phone] No Lifting, no bending, no pushing May [...] A MEDICAL NATURE, CALL YOUR DOCTOR/EMERGENCY ROOM. [facility] EMERGENCY ROOM [phone] Make a follow-up appointment with your surgeon. documented in this encounter* Attachments The following attachments cannot be sent through Care Everywhere. * Abdominal Pain (Honduran) documented in this encounter Assessments Diagnosis Acute appendicitis with localized peritonitis, without perforation, abscess, or gangrene- Primary Diagnosis Abdominal pain, unspecified abdominal location- Primary Advance Directives No Advanced Directives Records FoundDocuments on File Type Date Recorded Patient Director Wholesale Expl anation Advance Directives and Livin g Will 06/22/2020 1:08 PM Documents on File Type Date Recorded Patient Director Wholesale Expl anation Advance Directives and Livin g [...] ion and content) Patient's name Mele Thompson, [facility] #[id number] Age [age] years old date of 1995 [...] Rodriguez RN - 07/08/2020 4:48 PM Kate Abrue MD - 07/08/2020 1:53 PM Suly Rodriguez RN - 07/08/2020 1:48 PM EST ED Notes (unrecognized secti on and content) [facility] ED Attending Note: NAME: Mele Thompson 24 y.o. 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 Patient is to be kept n.p.o. He would like 3.375 of Zosyn given to the patient. He would like the patient admitted to his service. Clinical Impression: 1. Acute appendicitis with localized peritonitis, without perforation, abscess, or gangrene Disposition: hospitalize to Operating Room Andrey Valdez M.D. Attending Physician [facility] Emergency Departments 06/22/2020 Portions of this [...] and stable at dc. ED PROVIDER NOTE [facility] EMERGENCY DEPARTMENT NAME: Mele Thompson AGE: 24 y.o. : 1995 VISIT DATE: 07/08/2020 CSN: [id number] PCP: Physician No Chief Complaint Patient presents [...] Colorless, Yellow Clarity, Urine Clear Clear Specific [place] 1.020 1.005 - 1.025 pH, Urine 7.5 [...] 1. Magdi Salazar MD. Specialty: General Surgery [address] [place] [id number] Contact information for after-discharge care Follow-up [...] change in drainage on op-sites. MELE THOMPSON [id number] 1995 DATE 06/22/2020 OPERATIVE REPORT SURGEON MAGDI [...] utilizing 0 Ethibond with an open technique. Gzakil-uw-girhh suture was placed after complete desufflation of [...] appendicitis. MAGDI SALAZAR MD D 06/22/2020 20:33 [id number] 06/23/2020 01:38 VMT/MODL Umbilical dressing saturated with light pink serous drainage.Pubic dressing 1/2 saturated with shadow of pink drainage. Brief Post Operative Note Patient Name: Mele Thompson : 1995 (24 y.o.) Date of Service: 06/22/2020 CSN: [id number] Procedure(s): APPENDECTOMY LAPAROSCOPIC Pre-Operative Diagnoses: RIGHT SIDED ABDOMINAL PAIN - ACUTE APPENDICITIS Post-Operative Diagnoses: ACUTE RETROCECAL APPENDICITIS Surgeon(s) and Role: * Magdi Salazar MD - Primary Anesthesiologist: Jaylin Buckley MD Environmental Advisor: Tanisha Varghese RN Scrub Person Assist: Jadyn [...] previous ECG Rhythm: sinus rhythm BPM: 85 SC Interval: 108 QRS Interval: 82 QT Interval: 426 Clinical impression: non-specific ECG documented in this encounter INFORMATION SOURCE (unrecogn ized section and content) DATE CREATED AUTHOR 07/13/2020 [facility] DATE CREATED AUTHOR AUTHOR'S ORGANIZ ATION 01/28/2023 [facility] DATE CREATED AUTHOR AUTHOR'S ORGANIZ ATION 05/10/2024 [facility] FOR RECORDS PERTAINING TO PATIENTS WHO [...] BE BASED ON THE PRIMARY CLINICAL RECORDS. [employer] provides no warranty or guarantee of the accuracy or completeness of information in this document.
--- NOTE | 2024-05-15 13:06 | US_ITS ---
[address] [address] Patient Name: MELE DOLL MRN: [id number] date: 1995 Sex: F Assigned Patient Location: [facility] Current Patient Location: Accession/Order Number: [id number] Exam Date: 05/15/2024 13:08 Report Date: 05/16/2024 04:26 At the request of: ELLEN COLIN Procedure: US OB BPP w non-stress EXAMINATION: US OB BPP w non-stress HISTORY:History of placenta previa COMPARISON: Ultrasound OB biophysical 05/08/2024 TECHNIQUE: Ultrasound biophysical profile was performed in the radiology department. BREATHING MOVEMENTS: 2 GROSS BODY MOVEMENTS: 2 TONE: 2 QUALITATIVE AMNIOTIC FLUID VOLUME: 2 PRESENTATION: CEPHALIC HEART RATE: 173.19 bpm AMNIOTIC FLUID VOLUME: 12.24 cm GESTATIONAL AGE: 37 weeks 1 day US/US OB BPP w non-stress IMPRESSION: Total biophysical profile score: 8 Electronically authenticated by: EMERSON DOUGLASS Date: 05/16/2024 04:26
[2024-05-15 13:28] VITALS: BP 120/57; PULSE 122
== END 2024-05-15 14:00 | disposition home or self-care (01) ==
LOC: US 07:23 → FBC 13:03
PROVIDERS: PCP Obstetrics & Gynecology; Visit Provider Obstetrics & Gynecology
DX: O26.843 Uterine size-date discrepancy, third trimester (principal); Z3A.37 37 weeks gestation of pregnancy
CPT/HCPCS: 76818

== ENCOUNTER 2024-05-18 07:11 | Outpatient (OUT) | payer BC, SELFPAY ==
--- OUTSIDE RECORDS SUMMARY | 2024-05-18 07:14 | XMS_ITS | CCD ---
Author Organization [facility] Care Team Providers Care Surg Nurse Name Role Phone No, Physician Primary Care Provider Unavailabl e NO, PHYSICIAN Primary Care Unavailable MAGDI SALAZAR Consulting Moon SALAZAR, MAGDI REYNOSO Attending Moon SALAZAR, MAGDI REYNOSO Admitting Jujuvamehran FELIZ, PHYSICIAN Primary Care Unavailable KATE MENDOZA [...] CRISTI, ELLEN Attending Unavailable DALYCIERA Attending Unavailable CRISTI, ELLEN Attending Unavailable CRISTI, [...] HCGon 01-19-2023 HCG QUANT 67 mIU/mL Normal [facility] Comment on above: Performed By: #### P REGQNT #### [facility] [address] [place] [address] Dr. Tammi Fleming HCG RANGE SEE BELOW Normal [facility] Comment on above: Result Comment: 5-50 0.2-1 WEEK 50-500 1-2 WEEKS 100-5,000 2-3 WEEKS 500-10,000 3-4 WEEKS 1,000-50,000 4-5 WEEKS 10,000-100,000 5-6 WEEKS 15,000-200,000 6-8 WEEKS 10,000-100,000 2-3 MONTHS Performed By: #### P REGQNT #### [facility] [address] [place] [address] Dr. Tammi Fleming PREG QUANT HCGon 01-10-2023 HCG QUANT 231 mIU/mL Normal [facility] Comment on above: Performed By: #### P REGQNT #### [facility] [address] [place] [address] Dr. Tammi Fleming HCG RANGE SEE BELOW Normal [facility] Comment on above: Result Comment: 5-50 0.2-1 WEEK 50-500 1-2 WEEKS 100-5,000 2-3 WEEKS 500-10,000 3-4 WEEKS 1,000-50,000 4-5 WEEKS 10,000-100,000 5-6 WEEKS 15,000-200,000 6-8 WEEKS 10,000-100,000 2-3 MONTHS Performed By: #### P REGQNT #### [facility] [address] [place] [address] Dr. Tammi Fleming CBC AUTO DIFFon 01-04-2023 BASO # 0.0 103/ul Normal 0.0-0.1 [facility] Comment on above: Performed By: #### C BC #### [facility] [address] [place] [address] Dr. Tammi Fleming Basophils/100 WBC (Bld) 0.3 % Normal 0.2-2.0 [facility] Comment on above: Performed By: #### C BC #### [facility] [address] [place] [address] Dr. Tammi Fleming EO # 0.1 103/ul Normal 0.0-0.7 [facility] Comment on above: Performed By: #### C BC #### [facility] [address] [place] [address] Dr. Tammi Fleming Eosinophils/100 WBC (Bld) 0.8 % Critically low 0.9-7.0 [facility] Comment on above: Performed By: #### C BC #### [facility] [address] [place] [address] Dr. Tammi Fleming Erythrocyte distribution width (RBC) [Ratio] 12.0 % Normal 11.0-15.0 [facility] Comment on above: Performed By: #### C BC #### [facility] [address] [place] [address] Dr. Tammi Fleming Hematocrit (Bld) [Volume fraction] 42.6 % Normal 36.0-48.0 [facility] Comment on above: Performed By: #### C BC #### [facility] [address] [place] [address] Dr. Tammi Fleming Hemoglobin (Bld) [Mass/Vol] 14.5 g/dL Normal 12.0-16.0 [facility] Comment on above: Performed By: #### C BC #### [facility] [address] [place] [address] Dr. Tammi Fleming IG # 0.02 10e3/ul Normal 0.00-0.03 [facility] Comment on above: Performed By: #### C BC #### [facility] [address] [place] [address] Dr. Tammi Fleming IG % 0.3 % Normal 0.0-0.5 [facility] Comment on above: Performed By: #### C BC #### [facility] [address] [place] [address] Dr. Tammi Fleming LYMPH # 1.6 103/ul Normal 1.2-3.8 [facility] Comment on above: Performed By: #### C BC #### [facility] [address] [place] [address] Dr. Tammi Fleming Lymphocytes/100 WBC (Bld) 19.9 % Critically low 20.5-60.0 [facility] Comment on above: Performed By: #### C BC #### [facility] [address] [place] [address] Dr. Tammi Fleming MANUAL DIFF REQ NO Normal [facility] Comment on above: Performed By: #### C BC #### [facility] [address] [place] [address] Dr. Tammi Fleming MCH (RBC) [Entitic mass] 29.8 pg Normal 26.7-34.0 [facility] Comment on above: Performed By: #### C BC #### [facility] [address] [place] [address] Dr. Tammi Fleming MCHC (RBC) [Mass/Vol] 34.0 g/dL Normal 29.9-35.2 [facility] Comment on above: Performed By: #### C BC #### [facility] [address] [place] [address] Dr. Tammi Fleming MCV (RBC) [Entitic vol] 87.7 fL Normal 81.0-99.0 [facility] Comment on above: Performed By: #### C BC #### [facility] [address] [place] [address] Dr. Tammi Fleming MONO # 0.4 103/ul Normal 0.3-0.8 [facility] Comment on above: Performed By: #### C BC #### [facility] [address] [place] [address] Dr. Tammi Fleming Monocytes/100 WBC (Bld) 5.0 % Normal 1.7-12.0 [facility] Comment on above: Performed By: #### C BC #### [facility] [address] [place] [address] Dr. Tammi Fleming NEUT # 5.8 103/ul Normal 1.4-6.5 [facility] Comment on above: Performed By: #### C BC #### [facility] [address] [place] [address] Dr. Tammi Fleming Neutrophils/100 WBC (Bld) 73.7 % Normal 43.0-75.0 [facility] Comment on above: Performed By: #### C BC #### [facility] [address] [place] [address] Dr. Tammi Fleming Platelet mean volume (Bld) [Entitic vol] 12.1 fL Normal 9.5-13.5 [facility] Comment on above: Performed By: #### C BC #### [facility] [address] [place] [address] Dr. Tammi Fleming PLT 184 103/ul Normal 150-450 [facility] Comment on above: Performed By: #### C BC #### [facility] [address] [place] [address] Dr. Tammi Fleming RBC 4.86 106/ul Normal 4.20-5.40 [facility] Comment on above: Performed By: #### C BC #### [facility] [address] [place] [address] Dr. Tammi Fleming WBC 7.9 103/ul Normal 4.0-11.0 [facility] Comment on above: Performed By: #### C BC #### [facility] [address] [place] [address] Dr. Tammi Fleming ER URINE PROFILEon 3 Bilirubin Ql (U) Negative Normal NEGATIVE [facility] Comment on above: Performed By: #### E RUR, UMICRO #### [facility] [address] [place] [address] Dr. Tammi Fleming Clarity (U) CLEAR Normal CLEAR [facility] Comment on above: Performed By: #### E RUR, UMICRO #### [facility] [address] [place] [address] Dr. Tammi Fleming Color (U) LT. YELLOW Normal YELLOW [facility] Comment on above: Performed By: #### E RUR, UMICRO #### [facility] [address] [place] [address] Dr. Tammi Fleming ERUKATIED A micrscopic examina tion will be performed if indicated. Normal [facility] Comment on above: Performed By: #### Angela RUR, UMICRO #### [facility] [address] [place] [address] Dr. Tammi Fleming Glucose Ql (U) Negative Normal NEGATIVE [facility] Comment on above: Performed By: #### E RUR, UMICRO #### [facility] [address] [place] [address] Dr. Tammi Fleming Hemoglobin Ql (U) LARGE Abnormal NEGATIVE [facility] Comment on above: Performed By: #### E RUR, UMICRO #### [facility] [address] [place] [address] Dr. Tammi Fleming Ketones Ql (U) Negative Normal NEGATIVE [facility] Comment on above: Performed By: #### E RUR, UMICRO #### [facility] [address] [place] [address] Dr. Tammi Fleming LEUKOCYTES Negative Normal NEGATIVE [facility] Comment on above: Performed By: #### CIRILO SORTO #### [facility] [address] [place] [address] Dr. Tammi Fleming Nitrite Ql (U) Negative Normal NEGATIVE [facility] Comment on above: Performed By: #### CIRILO SORTO #### [facility] [address] [place] [address] Dr. Tammi Fleming pH (U) 7.0 [pH] Normal 5-9 [facility] Comment on above: Performed By: #### CIRILO SORTO #### [facility] [address] [place] [address] Dr. Tammi Fleming SPEC GRAVITY <=1.005 Abnormal 1.005-<=1.025 [facility] Comment on above: Performed By: #### CIRILO SORTO #### [facility] [address] [place] [address] Dr. Tammi Fleming UA PROTEIN Negative Normal NEGATIVE/ TRACE [facility] Comment on above: Performed By: #### CIRILO SORTO #### [facility] [address] [place] [address] Dr. Tammi Fleming UR MICRO IND INDICATED Normal [facility] Comment on above: Performed By: #### CIRILO SORTO #### [facility] [address] [place] [address] Dr. Tammi Fleming Urobilinogen Qn (U) 0.2 {Elder'U}/dL Normal 0.2 - 1.0 [facility] Comment on above: Performed By: #### CIRILO SORTO #### [facility] [address] [place] [address] Dr. Tammi Fleming PREG QUANT HCGon 01-04-2023 HCG QUANT 4523 mIU/mL Normal [facility] Comment on above: Performed By: #### P REGQNT #### [facility] [address] [place] [address] Dr. Tammi Fleming HCG RANGE SEE BELOW Normal [facility] Comment on above: Result Comment: 5-50 0.2-1 WEEK 50-500 1-2 WEEKS 100-5,000 2-3 WEEKS 500-10,000 3-4 WEEKS 1,000-50,000 4-5 WEEKS 10,000-100,000 5-6 WEEKS 15,000-200,000 6-8 WEEKS 10,000-100,000 2-3 MONTHS Performed By: #### P REGQNT #### [facility] [address] [place] [address] Dr. Tammi Fleming URINE MICROSCOPIC ONLYon BACTERIA TRACE Abnormal NONE SEEN [facility] Comment on above: Performed By: #### Angela CHRISTIE UMICRO #### [facility] [address] [place] [address] Dr. Tammi Fleming Bacteria identified Cx Nom (U) NOT INDICATED Normal [facility] Comment on above: Performed By: #### Angela CHRISTIE UMICRO #### [facility] [address] [place] [address] Dr. Tammi Fleming CAST NONE SEEN Normal NONE SEEN [facility] Comment on above: Performed By: #### Angela CHRISTIE UMICRO #### [facility] [address] [place] [address] Dr. Tammi Fleming Crystals LM Nom (Urine sed) NONE SEEN Normal NONE SEEN [facility] Comment on above: Performed By: #### Angela CHRISTIE UMICRO #### [facility] [address] [place] [address] Dr. Tammi Fleming Epithelial cells LM Ql (Urine sed) NONE SEEN Normal NONE SEEN /RARE [facility] Comment on above: Performed By: #### Angela CHRISTIE UMICRO #### [facility] [address] [place] [address] Dr. Tammi Fleming MUCOUS NONE SEEN Normal NONE SEEN [facility] Comment on above: Performed By: #### Angela CHRISTIE UMICRO #### [facility] [address] [place] [address] Dr. Tammi Fleming RBC 2-5 Abnormal 0-2 [facility] Comment on above: Performed By: #### E CIRILO CHRISTIE #### [facility] [address] [place], [place] [address] Dr. Tammi Flemnig WBC NONE SEEN Normal NONE SEEN [facility] Comment on above: Performed By: #### E CIRILO CHRISTIE #### [facility] [address] [place], [place] [address] Dr. Tammi Fleming US PREG TVon 01-04-2023 [...] DEYVI FELDER Date: 2023-01-04 18:08 Normal [facility] BMPon 07-08-2020 Anion gap [Moles/Vol] 11 mmol/L 10 - 20 mmol/L [facility] Calcium [Mass/Vol] 9.5 mg/dL 8.4 - 10. 2 mg/dL [facility] Chloride [Moles/Vol] 109 mmol/L High 98 - 108 mmol/L [facility] Creatinine [Mass/Vol] 0.85 mg/dL 0.40 - 1.10 [facility] GFR/1.73 sq M predicted among non-blacks MDRD (S/P/Bld) [Vol rate/Area] The eGFR should be used for monitoring renal function only and not for medication dosing. [facility] GFR/1.73 sq M.predicted CKD-EPI (S/P/Bld) [Vol rate/Area] 96 >=60 mL/min/1.73 m2 [facility] Glucose [Mass/Vol] 95 mg/dL 65 - 99 mg/dL [facility] HCO3 [Moles/Vol] 23 mmol/L 21 - 32 mmol/L [facility] Interpretation and review of laboratory results Abnormal [facility] Potassium [Moles/Vol] 3.5 mmol/L 3.5 - 5.1 mmol/L [facility] Sodium [Moles/Vol] 139 mmol/L 135 - 145 mmol/L [facility] Urea nitrogen [Mass/Vol] 10 mg/dL 8 - 25 mg/dL [facility] Urea nitrogen/Creatinin e [Mass ratio] 11.8 mg/mg [facility] CBC WITH AUTO DIFFERENTIALon 07-08-2020 Basophils (Bld) [#/Vol] 0.02 10*3/uL [facility] Basophils/100 WBC (Bld) 0.2 % [facility] Eosinophils (Bld) [#/Vol] 0.04 10*3/uL [facility] Eosinophils/100 WBC (Bld) 0.5 % [facility] Erythrocyte distribution width (RBC) [Entitic vol] 12.0 % 11.6 - 14.8 % [facility] Hematocrit (Bld) [Volume fraction] 43.3 % 36 - 46 % [facility] Hemoglobin (Bld) [Mass/Vol] 14.7 g/dL 12 - 16 g/dL [facility] Immature granulocytes (Bld) [#/Vol] 0.00 10*3/uL [facility] Immature granulocytes/100 WBC (Bld) 0.00 % [facility] Comment on above: The IG parameter is the percentage of metamyelocytes, myelocytes and promyelocytes. An immature granulocyte count (IG) of 1% or more suggests the possibility of infection, an IG count of 3% is very likely related to an infection. Lymphocytes (Bld) [#/Vol] 2.44 10*3/uL [facility] Lymphocytes/100 WBC (Bld) 30.2 % [facility] MCH (RBC) [Entitic mass] 29.2 pg 26 - 34 pg [facility] MCHC (RBC) [Mass/Vol] 33.9 g/dL 31 - 37 g/dL [facility] MCV (RBC) [Entitic vol] 86.1 fL 80 - 100 fL [facility] Monocytes (Bld) [#/Vol] 0.40 10*3/uL [facility] Monocytes/100 WBC (Bld) 5.0 % [facility] Neutrophils (Bld) [#/Vol] 5.17 10*3/uL [facility] Neutrophils/100 WBC (Bld) 64.1 % [facility] Platelet mean volume (Bld) [Entitic vol] 11.8 fL 9.4 - 12.4 fL [facility] Platelets (Bld) [#/Vol] 228 10*3/uL [facility] RBC (Bld) [#/Vol] 5.03 10*6/uL [facility] WBC (Bld) [#/Vol] 8.07 10*3/uL [facility]BD[facility] PELVIS WITH IV CO [...] ntrast Onlyon 07-08-2020 Interface, Rad In ji Speech - 07/08/2020 4:02 PM EST EXAMINATION: CT [...] changes from recent appendectomy. Workstation ID: [id number] [facility] EXAMINATION: CT ABDO MEN PELVIS WITH [...] No acute or aggressive osseous abnormality identified. [facility] 1. No acute infectio us, inflammatory or obstructive process identified in the abdomen or pelvis. 2. Postsurgical changes from recent appendectomy. Workstation ID: [id number] [facility] Hepatic Function Panel (LFT) on 07-08-2020 Albumin [Mass/Vol] 3.8 g/dL 3.2 - 5.2 g/dL [facility] ALP [Catalytic activity/Vol] 71 U/L 40 - 140 U/L [facility] ALT [Catalytic activity/Vol] 31 U/L 14 - 65 U/L [facility] AST [Catalytic activity/Vol] 18 U/L 0 - 45 U/L [facility] Bilirubin [Mass/Vol] 0.3 mg/dL 0 - 1.3 mg/dL [facility] Bilirubin.conjugat ed [Mass/Vol] mg/dL 0 - 0.4 mg/dL [facility] Protein [Mass/Vol] 7.9 g/dL 6 - 8 g/dL [facility] Lipaseon 07-08-2020 Lipase [Catalytic activity/Vol] 95 U/L 73 - 393 U/L [facility] Otheron 07-08-2020 Interpretation and review of laboratory results Normal [facility] Extra Tube Hold for add-ons. [facility] Comment on above: Auto resulted. URINALYSISon 07-08-2020 Bacteria Auto Ql (U) Rare Abnormal None Seen /hpf [facility] Bilirubin Ql (U) Negative Negative [facility] Clarity Refractometry automated (U) Clear Clear [facility] Color (U) Yellow Colorless, Yellow [facility] Epithelial cells.squamous Auto (Urine sed) [#/Area] 1 [facility] Glucose Auto test strip (U) [Mass/Vol] Negative Negative mg/dL [facility] Hemoglobin Auto test strip Ql (U) Negative Negative [facility] Interpretation and review of laboratory results Abnormal [facility] Ketones (U) [Mass/Vol] Negative Negative mg/dL [facility] Leukocyte esterase Auto test strip Ql (U) Negative Negative [facility] Nitrite Auto test strip Ql (U) Negative Negative [facility] pH (U) 7.5 [pH] High [facility] Protein (U) [Mass/Vol] Negative Negative mg/dL [facility] Specific gravity (U) [Rel density] 1.020 [facility] Urobilinogen (U) [Mass/Vol] <2.0 <2.0 mg/dL [facility] Microscopic examinat ion is performed on all urinalysis samples and only positive findings are reported. The test for blood on the chemical analytic portion of urinalysis may also be positive due to hemoglobinuria and myoglobinuria and if red blood cells are present they are quantified by microscopic examination. [facility] Urine Pregnancyon 07-08-2020 HCG ( test) Ql (U) Negative Negative [facility] Interpretation and review of laboratory results Normal [facility] CBC WITH AUTO DIFFERENTIALon 06-23-2020 Basophils (Bld) [#/Vol] 0.00 10*3/uL [facility] Basophils/100 WBC (Bld) 0.0 % [facility] Eosinophils (Bld) [#/Vol] 0.00 10*3/uL [facility] Eosinophils/100 WBC (Bld) 0.0 % [facility] Erythrocyte distribution width (RBC) [Entitic vol] 12.2 % 11.6 - 14.8 % [facility] Hematocrit (Bld) [Volume fraction] 37.2 % 36 - 46 % [facility] Hemoglobin (Bld) [Mass/Vol] 12.6 g/dL 12 - 16 g/dL [facility] Immature granulocytes (Bld) [#/Vol] 0.01 10*3/uL [facility] Immature granulocytes/100 WBC (Bld) 0.10 % [facility] Comment on above: The IG parameter is the percentage of metamyelocytes, myelocytes and promyelocytes. An immature granulocyte count (IG) of 1% or more suggests the possibility of infection, an IG count of 3% is very likely related to an infection. Interpretation and review of laboratory results Abnormal [facility] Lymphocytes (Bld) [#/Vol] 0.82 10*3/uL Low [facility] Lymphocytes/100 WBC (Bld) 6.8 % [facility] MCH (RBC) [Entitic mass] 29.3 pg 26 - 34 pg [facility] MCHC (RBC) [Mass/Vol] 33.9 g/dL 31 - 37 g/dL [facility] MCV (RBC) [Entitic vol] 86.5 fL 80 - 100 fL [facility] Monocytes (Bld) [#/Vol] 0.31 10*3/uL [facility] Monocytes/100 WBC (Bld) 2.6 % [facility] Neutrophils (Bld) [#/Vol] 10.86 10*3/uL High [facility] Neutrophils/100 WBC (Bld) 90.5 % [facility] Platelet mean volume (Bld) [Entitic vol] 12.1 fL 9.4 - 12.4 fL [facility] Platelets (Bld) [#/Vol] 197 10*3/uL [facility] RBC (Bld) [#/Vol] 4.30 10*6/uL [facility] WBC (Bld) [#/Vol] 12.00 10*3/uL [facility] CBC WITH AUTO DIFFERENTIALon 06-22-2020 Basophils (Bld) [#/Vol] 0.02 10*3/uL [facility] Basophils/100 WBC (Bld) 0.1 % [facility] Eosinophils (Bld) [#/Vol] 0.00 10*3/uL [facility] Eosinophils/100 WBC (Bld) 0.0 % [facility] Erythrocyte distribution width (RBC) [Entitic vol] 12.0 % 11.6 - 14.8 % [facility] Hematocrit (Bld) [Volume fraction] 40.2 % 36 - 46 % [facility] Hemoglobin (Bld) [Mass/Vol] 14.0 g/dL 12 - 16 g/dL [facility] Immature granulocytes (Bld) [#/Vol] 0.02 10*3/uL [facility] Immature granulocytes/100 WBC (Bld) 0.10 % [facility] Comment on above: The IG parameter is the percentage of metamyelocytes, myelocytes and promyelocytes. An immature granulocyte count (IG) of 1% or more suggests the possibility of infection, an IG count of 3% is very likely related to an infection. Interpretation and review of laboratory results Abnormal [facility] Lymphocytes (Bld) [#/Vol] 1.20 10*3/uL [facility] Lymphocytes/100 WBC (Bld) 5.9 % [facility] MCH (RBC) [Entitic mass] 29.4 pg 26 - 34 pg [facility] MCHC (RBC) [Mass/Vol] 34.8 g/dL 31 - 37 g/dL [facility] MCV (RBC) [Entitic vol] 84.5 fL 80 - 100 fL [facility] Monocytes (Bld) [#/Vol] 0.67 10*3/uL [facility] Monocytes/100 WBC (Bld) 3.3 % [facility] Neutrophils (Bld) [#/Vol] 18.51 10*3/uL [facility] Neutrophils/100 WBC (Bld) 90.6 % [facility] Platelet mean volume (Bld) [Entitic vol] 11.7 fL 9.4 - 12.4 fL [facility] Platelets (Bld) [#/Vol] 223 10*3/uL [facility] RBC (Bld) [#/Vol] 4.76 10*6/uL [facility] WBC (Bld) [#/Vol] 20.42 10*3/uL [facility] COVID-19, MOLECULARon 2019 SARS-COV-2 (BERG ID) Not Detected Normal Not Detected [facility] Comment on above: Result Comment: This test was performed under the FDA's Emergency Use Authorization (EUA). Testing was performed using the [employer] ID NOW COVID-19 assay on the ID NOW platform. This test has not been approved for use in asymptomatic patients and its performance in this patient population has not been evaluated. Negative results do not rule out the presence of SARS-CoV-2/COVID-19. Fact sheets for the EUA can be found at the following links: For Healthcare Providers: https://www.fda.gov/media/239809/download For Patients: https://www.fda.gov/media/055014/download Performed By: #### L [id number] #### [facility] [address] [address] Kenneth Arrieta M.D. [id number] COVID-19, Molecularon 2019 Interpretation and review of laboratory results Normal [facility] SARS-CoV-2 Not Detected Not Detected [facility] Comment on above: This test was [...] at the following links: For Healthcare Providers: https://www.fda.gov/media/911947/download For Patients: https://www.fda.gov/media/070215/download CT ABDOMEN PELVIS WITH IV CO NTRAST [...] seen directed medially within the central anterior ubz-ak-ylalb pelvis. No bowel obstruction. Some physiologic free [...] is directed medially within the central anterior inc-sw-sdtil pelvis with no bowel obstruction. 3. Some [...] seen directed medially within the central anterior jmd-[id number] pelvis. No bowel obstruction. Some physiologic free [...] is directed medially within the central anterior lke-lr-rnnky pelvis with no bowel obstruction. 3. Some physiologic free fluid in the cul-de-sac. Some small follicles seen in the ovaries bilaterally. Results were called by Dr. Clifford Wilson to Dr. ANDREY VALDEZ on 06/22/2020 at 16:43. GJT/dnb Workstation ID: [id number] [facility] 1. Acute appendiciti s. The appendix is seen just anterior to the right common iliac artery and is distended approaching 9 mm with wall enhancement and surrounding fatty stranding. 2. Moderate amount of fecal matter in the proximal colon. The cecum is directed medially within the central anterior ter-ot-rhjym pelvis with no bowel obstruction. 3. Some physiologic free fluid in the cul-de-sac. Some small follicles seen in the ovaries bilaterally. Results were called by Dr. Clifford Wilson to Dr. ANDREY VALDEZ on 06/22/2020 at 16:43. [facility] [employer] Workstation ID: [id number] [facility] EXAMINATION: CT ABDO MEN PELVIS WITH [...] seen directed medially within the central anterior hep-fg-fwufr pelvis. No bowel obstruction. Some physiologic free fluid in the cul-de-sac. Some follicles seen in the ovaries bilaterally. The uterus and urinary bladder unremarkable. No acute osseous abnormality. [facility] Comprehensive Metabolic Pane kendra 06-22-2020 Albumin [Mass/Vol] 4.0 g/dL 3.2 - 5.2 g/dL [facility] ALP [Catalytic activity/Vol] 63 U/L 40 - 140 U/L [facility] ALT [Catalytic activity/Vol] 27 U/L 14 - 65 U/L [facility] Anion gap [Moles/Vol] 10 mmol/L 10 - 20 mmol/L [facility] AST [Catalytic activity/Vol] 18 U/L 0 - 45 U/L [facility] Bilirubin [Mass/Vol] 0.5 mg/dL 0 - 1.3 mg/dL [facility] Calcium [Mass/Vol] 9.1 mg/dL 8.4 - 10. 2 mg/dL [facility] Chloride [Moles/Vol] 109 mmol/L High 98 - 108 mmol/L [facility] Creatinine [Mass/Vol] 0.83 mg/dL 0.40 - 1.10 [facility] GFR/1.73 sq M predicted among non-blacks MDRD (S/P/Bld) [Vol rate/Area] The eGFR should be used for monitoring renal function only and not for medication dosing. [facility] GFR/1.73 sq M.predicted CKD-EPI (S/P/Bld) [Vol rate/Area] 98 >=60 mL/min/1.73 m2 [facility] Glucose [Mass/Vol] 96 mg/dL 65 - 99 mg/dL [facility] HCO3 [Moles/Vol] 25 mmol/L 21 - 32 mmol/L [facility] Potassium [Moles/Vol] 3.7 mmol/L 3.5 - 5.1 mmol/L [facility] Protein [Mass/Vol] 7.8 g/dL 6 - 8 g/dL [facility] Sodium [Moles/Vol] 140 mmol/L 135 - 145 mmol/L [facility] Urea nitrogen [Mass/Vol] 10 mg/dL 8 - 25 mg/dL [facility] Urea nitrogen/Creatinin e [Mass ratio] 12.0 mg/mg [facility] ECG 12-LEADon 06-22-2020 Andrey Valdez MD 2019 4:57 PM ECG 12 Lead Date/Time: 06/22/2020 4:51 PM Performed by: Andrey Valdez MD Authorized by: Andrey Valdez MD Interpreted by ED attending physician Comparison: not compared with previous ECG Rhythm: sinus rhythm BPM: 85 IN Interval: 108 QRS Interval: 82 QT Interval: 426 Clinical impression: non-specific ECG [facility] Lipaseon 06-22-2020 Lipase [Catalytic activity/Vol] 72 U/L Low 73 - 393 U/L [facility] Otheron 06-22-2020 Interpretation and review of laboratory results Abnormal [facility] URINALYSISon 06-22-2020 Bacteria Auto Ql (U) Few Abnormal None Seen /hpf [facility] Bilirubin Ql (U) Negative Negative [facility] th Clarity Refractometry automated (U) Cloudy Abnormal Clear [facility] Color (U) Yellow Colorless, Yellow [facility] Epithelial cells.squamous Auto (Urine sed) [#/Area] 3 [facility] Glucose Auto test strip (U) [Mass/Vol] Negative Negative mg/dL [facility] Hemoglobin Auto test strip Ql (U) Negative Negative [facility] Interpretation and review of laboratory results Abnormal [facility] Ketones (U) [Mass/Vol] 20 Abnormal Negative mg/dL [facility] Leukocyte esterase Auto test strip Ql (U) Negative Negative [facility] Nitrite Auto test strip Ql (U) Negative Negative [facility] pH (U) 7.0 [pH] [facility] Protein (U) [Mass/Vol] Negative Negative mg/dL [facility] Specific gravity (U) [Rel density] 1.020 [facility] Urobilinogen (U) [Mass/Vol] <2.0 <2.0 mg/dL [facility] WBC Auto (Urine sed) [#/Area] 2 [facility] Microscopic examinat ion is performed on all urinalysis samples and only positive findings are reported. The test for blood on the chemical analytic portion of urinalysis may also be positive due to hemoglobinuria and myoglobinuria and if red blood cells are present they are quantified by microscopic examination. [facility] Urine Pregnancyon 06-22-2020 HCG ( test) Ql (U) Negative Negative [facility] Interpretation and review of laboratory results Normal [facility] Vital Signs Date Time Vital Sign Value Performing Clinician Faci lity 07-08-2020 15:34-0500 BP Diastolic 79 mm[Hg] [facility] 07-08-2020 15:34-0500 BP Systolic 125 mm[Hg] [facility] 07-08-2020 15:34-0500 Pulse (Heart Rate) 81 /min [facility] 07-08-2020 15:34-0500 Pulse Oximetry 99 % [facility] 07-08-2020 15:34-0500 Respiratory Rate 16 /min [facility] 07-08-2020 13:50-0500 BMI (Body Mass Index) 20.36 kg/m2 [facility] 07-08-2020 13:50-0500 Body Temperature 98.49 [degF] Kate [facility] 07-08-2020 13:50-0500 Body weight 58.97 kg Kate [facility] 07-08-2020 13:50-0500 [facility] 06-23-2020 07:35-0500 Body Temperature 98.01 [degF] Andrey [facility] 06-23-2020 07:35-0500 BP Diastolic 68 mm[Hg] [facility] 06-23-2020 07:35-0500 BP Systolic 106 mm[Hg] [facility] 06-23-2020 07:35-0500 Pulse (Heart Rate) 75 /min [facility] 06-23-2020 07:35-0500 Pulse Oximetry 94 % [facility] 06-23-2020 07:35-0500 Respiratory Rate 16 /min [facility] 06-22-2020 14:15-0500 BMI (Body Mass Index) 20.36 kg/m2 [facility] 06-22-2020 14:15-0500 Body weight 58.97 kg [facility] 06-22-2020 14:15-0500 Height 170.2 cm [facility] Encounters Encounter Date Encounter Type Care Provider Facility Start: 05-15-2024 End: 05-15-2024 ambulatory ELLEN CRISTI Not Available Start: 05-08-2024 End: 05-08-2024 ambulatory ELLEN CRISTI [...] Start: 01-19-[address] NONE LISTED REQUEST Facility:[facility] Start: 01-14-[address] NONE LISTED REQUEST Facility:[facility] Start: 01-10-2023 End: 01-11-[address] NONE LISTED REQUEST Facility: Start: 01-04-2023 End: 01-04-[address] NONE LISTED REQUEST Facility: Start: 07-08-2020 End: 07-08-2020 Emergency department patient visit PHYSICIAN [facility] Start: 07-08-2020 End: 07-08-2020 Emergency department patient visit Kate Mendoza Work Phone: [facility] Emergency Department Comment on above: Abdominal pain, unsp ecified abdominal location (Primary Dx) Start: 06-22-2020 End: 06-23-2020 Patient encounter procedure PHYSICIAN [facility] Start: 06-22-2020 End: 06-23-2020 Emergency department patient visit Andrey Valdez Work Phone: [facility] Med Surg Comment [...] Work Phone: Start: 06-22-2020 12 lead ECG [place] Wu Work Phone: Start: 06-22-2020 Ct abdomen & pelvis w/contrast material [place] Valdez Work Phone: Start: 06-22-2020 Complete blood count with white cell differential, automated [place] Work Phone: Start: 06-22-2020 Complete blood count with white cell differential, manual Andrey Wu Work Phone: Start: 06-22-2020 Comprehensive metabolic 2000 panel - Serum or Plasma Andrey Wu Work Phone: Start: 06-22-2020 Lipase [Enzymatic activity/volume] in Serum or Plasma [place] Demario Work Phone: Start: 06-22-2020 Choriogonadotropin ( test) [Presence] in Urine Andrey Valdez Work Phone: Start: 06-22-2020 Urinalysis Andrey Valdez Work Phone: Plan of Treatment Date Care Activity Detail Author Start: 04-22-2020 Influenza vaccination given Se quential Influenza Vaccine (#1) [facility] Start: 2012 Hepatitis C antibody , confirmatory test Hepatitis C Screening [facility] Start: 2009 HIV screening HIV Screening [facility] Start: 2006 Adolescent depressio n screening assessment Depression Screening (PHQ9) [facility] Start: 2005 Vaccination for tri n papillomavirus HPV Vaccines (1 - 2-dose series) [facility] Start: 1997 History and physical examination, annual for health maintenance Wellness Visit [facility] Start: 1994 Screening for malign ant neoplasm of cervix Pap Smear [facility] Start: 1994 Tetanus vaccination Tetanus: Every 1 0yrs [facility] Procedure on tissue specimen Tis kyara Exam Pathology and Cytology STAT Release Upon Ordering for 1 Occurrences starting 06/22/2020 [facility] Comment on above: Release Upon Orderin g for 1 Occurrences starting 06/22/2020 Payers Date Payer Category Payer Unknown [employer] PPO [id number] 2019-Present [id number] 2019 Unknown [id number] 1994 Unknown [id number] 1994 Unknown [id number] [id number] 1994 Unknown [id number] 2.16.840.1.600398.3.579.2.593 1994 Unknown [id number] 2.16.840.1.975102.3.579.2.593 1994 Unknown [id number] 2.16.840.1.419593.3.579.2.593 1994 Unknown [id number] 2.16.840.1.228038.3.579.2.593 1994 Unknown [id number] 2.16.840.1.005144.3.579.2.9 1994 Unknown [id number] 2.16.840.1.491986.3.579.2.9 1994 Unknown [id number] 2.16.840.1.812778.3.579.2.9 1994 Unknown [id number] 2.16.840.1.817209.3.579.2.1258 1994 Unknown [id number] 2.16.840.1.805547.3.579.2.9 1994 Unknown [id number] 2.16.840.1.536173.3.579.2.1258 1994 Unknown [id number] 2.16.840.1.815362.3.579.2.1258 1994 Unknown [id number] 2.16.840.1.581763.3.579.2.1258 1994 Unknown [id number] 2.16.840.1.290658.3.579.2.9 1994 Unknown [id number] 2.16.840.1.291972.3.579.2.1258 1994 Unknown [id number] 2.16.840.1.205649.3.579.2.1259 1959 Unknown [id number] Social History Date Type Detail Facility Start: 06-23-2020 End: 07-08-2020 Tobacco smoking status NHIS Never smoker [facility] Start: 06-23-2020 End: 07-08-2020 Tobacco use and exposure Never used [facility] Start: 06-23-2020 End: 07-08-2020 Alcohol intake Ex-drinker (finding) [facility] Sex Assigned At Not on file [facility] Exposure to SARS-CoV-2 (event) Not sure [facility] Discharge Instructions * Instructions* Magdi Salazar MD - 06/23/[address] Salazar (Hernia Repair/Gallbladder) [phone] No Lifting, no bending, no pushing May [...] A MEDICAL NATURE, CALL YOUR DOCTOR/EMERGENCY ROOM. [facility] EMERGENCY ROOM [phone] Make a follow-up appointment with your surgeon. Post Operative Instructions Dr Salazar (Hernia Repair/Gallbladder) [phone] No Lifting, no bending, no pushing May [...] A MEDICAL NATURE, CALL YOUR DOCTOR/EMERGENCY ROOM. [facility] EMERGENCY ROOM [phone] Make a follow-up appointment with your surgeon. documented in this encounter* Attachments The following attachments cannot be sent through Care Everywhere. * Abdominal Pain (Turkmen) documented in this encounter Assessments Diagnosis Acute appendicitis with localized peritonitis, without perforation, abscess, or gangrene- Primary Diagnosis Abdominal pain, unspecified abdominal location- Primary Advance Directives No Advanced Directives Records FoundDocuments on File Type Date Recorded Patient Fiscal Technician Expl anation Advance Directives and Livin g Will 06/22/2020 1:08 PM Documents on File Type Date Recorded Patient Fiscal Technician Expl anation Advance Directives and Livin g [...] and content) Patient's name Mele Thompson, STELLA #[id number] Age [age] years old date of 1995 [...] ED Notes (unrecognized secti on and content) [facility] ED Attending Note: NAME: Mele Thompson 24 y.o. CSN: [id number] PCP: Physician No History: Chief Complaint: Abdominal [...] file Gets together: Not on file Attends judaism service: Not on file Active member of [...] Procedure Abnormality Status --------- ------ CBC Auto Differential[[id number]] Abnormal Final result Please view results for [...] a case request, and contact the nurse education administrator cone cleaner. Patient is to be kept n.p.o. He would like 3.375 of Zosyn given to the patient. He would like the patient admitted to his service. Clinical Impression: 1. Acute appendicitis with localized peritonitis, without perforation, abscess, or gangrene Disposition: hospitalize to Operating Room Andrey Valdez M.D. Attending Physician [facility] Emergency Departments 06/22/2020 Portions [...] lobby. Pt alert, oriented and stable at mo. ED PROVIDER NOTE [facility] EMERGENCY [facility]PART[facility] NAME: Mele Thompson AGE: 24 y.o. : 1995 VISIT DATE: 07/08/2020 CSN: [id number] PCP: Physician No Chief Complaint Patient presents [...] file Gets together: Not on file Attends judaism service: Not on file Active member of [...] Colorless, Yellow Clarity, Urine Clear Clear Specific [place] 1.020 1.005 - 1.025 pH, Urine 7.5 [...] Salazar MD. Specialty: General Surgery E [facility] [id number] Contact information for after-discharge care Follow-up information [...] change in drainage on op-sites. [facility]LE [facility]PSON [facility] [id number] [facility] [id number] 1995 DATE 06/22/2020 OPERATIVE REPORT SURGEON MAGDI [...] utilizing 0 Ethibond with an open technique. Fwvvxw-zg-gaoni suture was placed after complete desufflation of [...] appendicitis. MAGDI SALAZAR MD D 06/22/2020 20:33 [id number] T 06/23/2020 01:38 VMT/MODL Umbilical dressing saturated with light pink serous drainage.Pubic dressing 1/2 saturated with shadow of pink drainage. Brief Post Operative Note Patient Name: Mele Thompson : 1995 (24 y.o.) Date of Service: 06/22/2020 CSN: [id number] Procedure(s): APPENDECTOMY LAPAROSCOPIC Pre-Operative Diagnoses: RIGHT SIDED ABDOMINAL PAIN - ACUTE APPENDICITIS Post-Operative Diagnoses: ACUTE RETROCECAL APPENDICITIS Surgeon(s) and Role: * Magdi Salazar MD - Primary Anesthesiologist: Jaylin Buckley MD Tubing Machine Operator: Tanisha Varghese RN Scrub Person [...] previous ECG Rhythm: sinus rhythm BPM: 85 IN Interval: 108 QRS Interval: 82 QT Interval: 426 Clinical impression: non-specific ECG documented in this encounter INFORMATION SOURCE (unrecogn ized section and content) DATE CREATED AUTHOR 07/13/2020 [facility] DATE CREATED AUTHOR AUTHOR'S ORGANIZ ATION 01/28/2023 [facility] DATE CREATED AUTHOR AUTHOR'S ORGANIZ ATION 05/18/2024 [facility] FOR RECORDS PERTAINING TO PATIENTS WHO ARE [...] BE BASED ON THE PRIMARY CLINICAL RECORDS. [facility]. provides no warranty or guarantee of the accuracy or completeness of information in this document.
[2024-05-18 12:04] VITALS: BP 114/86; PULSE 136
== END 2024-05-18 12:41 | disposition home or self-care (01) ==
LOC: FBCO 07:11 → FBC 11:57
PROVIDERS: PCP Obstetrics & Gynecology; Visit Provider Obstetrics & Gynecology
DX: O43.893 Other placental disorders, third trimester (principal)
CPT/HCPCS: 59025

== ENCOUNTER 2024-05-22 07:14 | Outpatient (OUT) | payer BC, SELFPAY ==
--- NOTE | 2024-05-22 | US_ITS ---
[address] [address] Patient Name: MELE DOLL MRN: [id number] date: 1995 Sex: F Assigned Patient Location: [facility] Current Patient Location: [facility] Accession/Order Number: [id number] Exam Date: 05/22/2024 13:02 Report Date: 05/22/2024 13:46 At the request of: CIERA KAUFFMAN Procedure: US OB BPP w non-stress EXAMINATION: US OB BPP w non-stress HISTORY: History of placenta previa Z87.39 COMPARISON: No relevant comparison available. TECHNIQUE: Ultrasound biophysical profile was performed in the radiology department. non-reactive stress testing was performed by nursing staff in the birthing center. FINDINGS: BREATHING MOVEMENTS: 2 GROSS BODY MOVEMENTS: 2 TONE: 2 QUALITATIVE AMNIOTIC FLUID VOLUME: 2 PRESENTATION: CEPHALIC HEART RATE: 161.68 bpm AMNIOTIC FLUID VOLUME: 12.5 cm GESTATIONAL AGE: 38 weeks 1 day US/US OB BPP w non-stress IMPRESSION: Total biophysical profile score: 8 Electronically authenticated by: BRAD WILLETT Date: 05/22/2024 13:46
--- OUTSIDE RECORDS SUMMARY | 2024-05-22 07:16 | XMS_ITS | CCD ---
Author Organization [facility] Care Team Providers Care Hot Wort Settler Name Role Phone No, Physician Primary Care Provider Unavailabl e NO, PHYSICIAN Primary Care Unavailable MAGDI SALAZAR Consulting Moon SALAZAR, MAGDI REYNOSO Attending Moon SALAZAR, MAGDI REYNOSO Admitting Jujuvamehran FELIZ, PHYSICIAN Primary Care Unavailable KATE MENDOZA Attending Unavailable KELLY, KATE LUCERO Admitting Unavailable REQUEST, DR FREEDMAN LISTED Primary Care Unavaila ble REINECK, DR STEW Hasikns Admitting Unavailabl e REINECK, DR STEW Haskins Attending Unavailabl e DYLON ., SERIGO VASQUEZ Consulting Unavailabl e STRAWSER, DEYVI Consulting [...] HCGon 01-19-2023 HCG QUANT 67 mIU/mL Normal [facility] Comment on above: Performed By: #### P REGQNT #### [facility] [address] [place] [address] Dr. Tammi Fleming HCG RANGE SEE BELOW Normal [facility] Comment on above: Result Comment: 5-50 0.2-1 WEEK 50-500 1-2 WEEKS 100-5,000 2-3 WEEKS 500-10,000 3-4 WEEKS 1,000-50,000 4-5 WEEKS 10,000-100,000 5-6 WEEKS 15,000-200,000 6-8 WEEKS 10,000-100,000 2-3 MONTHS Performed By: #### P REGQNT #### [facility] [address] [place] [address] Dr. Tammi Fleming PREG QUANT HCGon 01-10-2023 HCG QUANT 231 mIU/mL Normal [facility] Comment on above: Performed By: #### P REGQNT #### [facility] [address] [place] [address] Dr. Tammi Fleming HCG RANGE SEE BELOW Normal [facility] Comment on above: Result Comment: 5-50 0.2-1 WEEK 50-500 1-2 WEEKS 100-5,000 2-3 WEEKS 500-10,000 3-4 WEEKS 1,000-50,000 4-5 WEEKS 10,000-100,000 5-6 WEEKS 15,000-200,000 6-8 WEEKS 10,000-100,000 2-3 MONTHS Performed By: #### P REGQNT #### [facility] [address] [place] [address] Dr. Tammi Fleming CBC AUTO DIFFon 01-04-2023 BASO # 0.0 103/ul Normal 0.0-0.1 [facility] Comment on above: Performed By: #### C BC #### [facility] [address] [place] [address] Dr. Tammi Fleming Basophils/100 WBC (Bld) 0.3 % Normal 0.2-2.0 [facility] Comment on above: Performed By: #### C BC #### [facility] [address] [place] [address] Dr. Tammi Fleming EO # 0.1 103/ul Normal 0.0-0.7 [facility] Comment on above: Performed By: #### C BC #### [facility] [address] [place] [address] Dr. Tammi Fleming Eosinophils/100 WBC (Bld) 0.8 % Critically low 0.9-7.0 [facility] Comment on above: Performed By: #### C BC #### [facility] [address] [place] [address] Dr. Tammi Fleming Erythrocyte distribution width (RBC) [Ratio] 12.0 % Normal 11.0-15.0 [facility] Comment on above: Performed By: #### C BC #### [facility] [address] [place] [address] Dr. Tammi Fleming Hematocrit (Bld) [Volume fraction] 42.6 % Normal 36.0-48.0 [facility] Comment on above: Performed By: #### C BC #### [facility] [address] [place] [address] Dr. Tammi Fleming Hemoglobin (Bld) [Mass/Vol] 14.5 g/dL Normal 12.0-16.0 [facility] Comment on above: Performed By: #### C BC #### [facility] [address] [place] [address] Dr. Tammi Fleming IG # 0.02 10e3/ul Normal 0.00-0.03 [facility] Comment on above: Performed By: #### C BC #### [facility] [address] [place] [address] Dr. Tammi Fleming IG % 0.3 % Normal 0.0-0.5 [facility] Comment on above: Performed By: #### C BC #### [facility] [address] [place] [address] Dr. Tammi Fleming LYMPH # 1.6 103/ul Normal 1.2-3.8 [facility] Comment on above: Performed By: #### C BC #### [facility] [address] [place] [address] Dr. Tammi Fleming Lymphocytes/100 WBC (Bld) 19.9 % Critically low 20.5-60.0 [facility] Comment on above: Performed By: #### C BC #### [facility] [address] [place] [address] Dr. Tammi Fleming MANUAL DIFF REQ NO Normal [facility] Comment on above: Performed By: #### C BC #### [facility] [address] [place] [address] Dr. Tammi Fleming MCH (RBC) [Entitic mass] 29.8 pg Normal 26.7-34.0 [facility] Comment on above: Performed By: #### C BC #### [facility] [address] [place] [address] Dr. Tammi Fleming MCHC (RBC) [Mass/Vol] 34.0 g/dL Normal 29.9-35.2 [facility] Comment on above: Performed By: #### C BC #### [facility] [address] [place] [address] Dr. Tammi Fleming MCV (RBC) [Entitic vol] 87.7 fL Normal 81.0-99.0 [facility] Comment on above: Performed By: #### C BC #### [facility] [address] [place] [address] Dr. Tammi Fleming MONO # 0.4 103/ul Normal 0.3-0.8 [facility] Comment on above: Performed By: #### C BC #### [facility] [address] [place] [address] Dr. Tammi Fleming Monocytes/100 WBC (Bld) 5.0 % Normal 1.7-12.0 [facility] Comment on above: Performed By: #### C BC #### [facility] [address] [place] [address] Dr. Tammi Fleming NEUT # 5.8 103/ul Normal 1.4-6.5 [facility] Comment on above: Performed By: #### C BC #### [facility] [address] [place] [address] Dr. Tammi Fleming Neutrophils/100 WBC (Bld) 73.7 % Normal 43.0-75.0 [facility] Comment on above: Performed By: #### C BC #### [facility] [address] [place] [address] Dr. Tammi Fleming Platelet mean volume (Bld) [Entitic vol] 12.1 fL Normal 9.5-13.5 [facility] Comment on above: Performed By: #### C BC #### [facility] [address] [place] [address] Dr. Tammi Fleming PLT 184 103/ul Normal 150-450 [facility] Comment on above: Performed By: #### C BC #### [facility] [address] [place] [address] Dr. Tammi Fleming RBC 4.86 106/ul Normal 4.20-5.40 [facility] Comment on above: Performed By: #### C BC #### [facility] [address] [place] [address] Dr. Tammi Fleming WBC 7.9 103/ul Normal 4.0-11.0 [facility] Comment on above: Performed By: #### C BC #### [facility] [address] [place] [address] Dr. Tammi Fleming ER URINE PROFILEon 3 Bilirubin Ql (U) Negative Normal NEGATIVE [facility] Comment on above: Performed By: #### E RUR, UMICRO #### [facility] [address] [place] [address] Dr. Tammi Fleming Clarity (U) CLEAR Normal CLEAR [facility] Comment on above: Performed By: #### E RUR, UMICRO #### [facility] [address] [place] [address] Dr. Tammi Fleming Color (U) LT. YELLOW Normal YELLOW [facility] Comment on above: Performed By: #### E RUR, UMICRO #### [facility] [address] [place] [address] Dr. Tammi Fleming ERUKATIED A micrscopic examina tion will be performed if indicated. Normal [facility] Comment on above: Performed By: #### Angela RUR, UMICRO #### [facility] [address] [place] [address] Dr. Tammi Fleming Glucose Ql (U) Negative Normal NEGATIVE [facility] Comment on above: Performed By: #### E RUR, UMICRO #### [facility] [address] [place] [address] Dr. Tammi Fleming Hemoglobin Ql (U) LARGE Abnormal NEGATIVE [facility] Comment on above: Performed By: #### E RUR, UMICRO #### [facility] [address] [place] [address] Dr. Tammi Fleming Ketones Ql (U) Negative Normal NEGATIVE [facility] Comment on above: Performed By: #### E RUR, UMICRO #### [facility] [address] [place] [address] Dr. Tammi Fleming LEUKOCYTES Negative Normal NEGATIVE [facility] Comment on above: Performed By: #### CIRILO SORTO #### [facility] [address] [place] [address] Dr. Tammi Fleming Nitrite Ql (U) Negative Normal NEGATIVE [facility] Comment on above: Performed By: #### CIRILO SORTO #### [facility] [address] [place] [address] Dr. Tammi Fleming pH (U) 7.0 [pH] Normal 5-9 [facility] Comment on above: Performed By: #### CIRILO SORTO #### [facility] [address] [place] [address] Dr. Tammi Fleming SPEC GRAVITY <=1.005 Abnormal 1.005-<=1.025 [facility] Comment on above: Performed By: #### CIRILO SORTO #### [facility] [address] [place] [address] Dr. Tammi Fleming UA PROTEIN Negative Normal NEGATIVE/ TRACE [facility] Comment on above: Performed By: #### CIRILO SORTO #### [facility] [address] [place] [address] Dr. Tammi Fleming UR MICRO IND INDICATED Normal [facility] Comment on above: Performed By: #### CIRILO SORTO #### [facility] [address] [place] [address] Dr. Tammi Fleming Urobilinogen Qn (U) 0.2 {Elder'U}/dL Normal 0.2 - 1.0 [facility] Comment on above: Performed By: #### CIRILO SORTO #### [facility] [address] [place] [address] Dr. Tammi Fleming PREG QUANT HCGon 01-04-2023 HCG QUANT 4523 mIU/mL Normal [facility] Comment on above: Performed By: #### P REGQNT #### [facility] [address] [place] [address] Dr. Tammi Fleming HCG RANGE SEE BELOW Normal [facility] Comment on above: Result Comment: 5-50 0.2-1 WEEK 50-500 1-2 WEEKS 100-5,000 2-3 WEEKS 500-10,000 3-4 WEEKS 1,000-50,000 4-5 WEEKS 10,000-100,000 5-6 WEEKS 15,000-200,000 6-8 WEEKS 10,000-100,000 2-3 MONTHS Performed By: #### P REGQNT #### [facility] [address] [place] [address] Dr. Tammi Fleming URINE MICROSCOPIC ONLYon BACTERIA TRACE Abnormal NONE SEEN [facility] Comment on above: Performed By: #### Angela CHRISTIE UMICRO #### [facility] [address] [place] [address] Dr. Tammi Fleming Bacteria identified Cx Nom (U) NOT INDICATED Normal [facility] Comment on above: Performed By: #### Angela CHRISTIE UMICRO #### [facility] [address] [place] [address] Dr. Tammi Fleming CAST NONE SEEN Normal NONE SEEN [facility] Comment on above: Performed By: #### Angela CHRISTIE UMICRO #### [facility] [address] [place] [address] Dr. Tammi Fleming Crystals LM Nom (Urine sed) NONE SEEN Normal NONE SEEN [facility] Comment on above: Performed By: #### Angela CHRISTIE UMICRO #### [facility] [address] [place] [address] Dr. Tammi Fleming Epithelial cells LM Ql (Urine sed) NONE SEEN Normal NONE SEEN /RARE [facility] Comment on above: Performed By: #### Angela CHRISTIE UMICRO #### [facility] [address] [place] [address] Dr. Tammi Fleming MUCOUS NONE SEEN Normal NONE SEEN [facility] Comment on above: Performed By: #### Angela CHRISTIE UMICRO #### [facility] [address] [place] [address] Dr. Tammi Fleming RBC 2-5 Abnormal 0-2 [facility] Comment on above: Performed By: #### E CIRILO CHRISTIE #### [facility] [address] [place], [place] [address] Dr. Tammi Fleming WBC NONE SEEN Normal NONE SEEN [facility] Comment on above: Performed By: #### E CIRILO CHRISTIE #### [facility] [address] [place], [place] [address] Dr. Tammi Fleming US PREG TVon 01-04-2023 [...] DEYVI FELDER Date: 2023-01-04 18:08 Normal [facility] BMPon 07-08-2020 Anion gap [Moles/Vol] 11 mmol/L 10 - 20 mmol/L [facility] Calcium [Mass/Vol] 9.5 mg/dL 8.4 - 10. 2 mg/dL [facility] Chloride [Moles/Vol] 109 mmol/L High 98 - 108 mmol/L [facility] Creatinine [Mass/Vol] 0.85 mg/dL 0.40 - 1.10 [facility] GFR/1.73 sq M predicted among non-blacks MDRD (S/P/Bld) [Vol rate/Area] The eGFR should be used for monitoring renal function only and not for medication dosing. [facility] GFR/1.73 sq M.predicted CKD-EPI (S/P/Bld) [Vol rate/Area] 96 >=60 mL/min/1.73 m2 [facility] Glucose [Mass/Vol] 95 mg/dL 65 - 99 mg/dL [facility] HCO3 [Moles/Vol] 23 mmol/L 21 - 32 mmol/L [facility] Interpretation and review of laboratory results Abnormal [facility] Potassium [Moles/Vol] 3.5 mmol/L 3.5 - 5.1 mmol/L [facility] Sodium [Moles/Vol] 139 mmol/L 135 - 145 mmol/L [facility] Urea nitrogen [Mass/Vol] 10 mg/dL 8 - 25 mg/dL [facility] Urea nitrogen/Creatinin e [Mass ratio] 11.8 mg/mg [facility] CBC WITH AUTO DIFFERENTIALon 07-08-2020 Basophils (Bld) [#/Vol] 0.02 10*3/uL [facility] Basophils/100 WBC (Bld) 0.2 % [facility] Eosinophils (Bld) [#/Vol] 0.04 10*3/uL [facility] Eosinophils/100 WBC (Bld) 0.5 % [facility] Erythrocyte distribution width (RBC) [Entitic vol] 12.0 % 11.6 - 14.8 % [facility] Hematocrit (Bld) [Volume fraction] 43.3 % 36 - 46 % [facility] Hemoglobin (Bld) [Mass/Vol] 14.7 g/dL 12 - 16 g/dL [facility] Immature granulocytes (Bld) [#/Vol] 0.00 10*3/uL [facility] Immature granulocytes/100 WBC (Bld) 0.00 % [facility] Comment on above: The IG parameter is the percentage of metamyelocytes, myelocytes and promyelocytes. An immature granulocyte count (IG) of 1% or more suggests the possibility of infection, an IG count of 3% is very likely related to an infection. Lymphocytes (Bld) [#/Vol] 2.44 10*3/uL [facility] Lymphocytes/100 WBC (Bld) 30.2 % [facility] MCH (RBC) [Entitic mass] 29.2 pg 26 - 34 pg [facility] MCHC (RBC) [Mass/Vol] 33.9 g/dL 31 - 37 g/dL [facility] MCV (RBC) [Entitic vol] 86.1 fL 80 - 100 fL [facility] Monocytes (Bld) [#/Vol] 0.40 10*3/uL [facility] Monocytes/100 WBC (Bld) 5.0 % [facility] Neutrophils (Bld) [#/Vol] 5.17 10*3/uL [facility] Neutrophils/100 WBC (Bld) 64.1 % [facility] Platelet mean volume (Bld) [Entitic vol] 11.8 fL 9.4 - 12.4 fL [facility] Platelets (Bld) [#/Vol] 228 10*3/uL [facility] RBC (Bld) [#/Vol] 5.03 10*6/uL [facility] WBC (Bld) [#/Vol] 8.07 10*3/uL [facility] CT ABDOMEN PELVIS WITH IV CO [...] TueJul 08, 2020 3:59:53 PM EST Normal [facility] Comment on above: Order Comment: Injur [...] changes from recent appendectomy. Workstation ID: [id number] [facility] EXAMINATION: CT ABDO MEN PELVIS WITH [...] No acute or aggressive osseous abnormality identified. [facility] 1. No acute infectio us, inflammatory or obstructive process identified in the abdomen or pelvis. 2. Postsurgical changes from recent appendectomy. Workstation ID: [id number] [facility] Hepatic Function Panel (LFT) on 07-08-2020 Albumin [Mass/Vol] 3.8 g/dL 3.2 - 5.2 g/dL [facility] ALP [Catalytic activity/Vol] 71 U/L 40 - 140 U/L [facility] ALT [Catalytic activity/Vol] 31 U/L 14 - 65 U/L [facility] AST [Catalytic activity/Vol] 18 U/L 0 - 45 U/L [facility] Bilirubin [Mass/Vol] 0.3 mg/dL 0 - 1.3 mg/dL [facility] Bilirubin.conjugat ed [Mass/Vol] mg/dL 0 - 0.4 mg/dL [facility] Protein [Mass/Vol] 7.9 g/dL 6 - 8 g/dL [facility] Lipaseon 07-08-2020 Lipase [Catalytic activity/Vol] 95 U/L 73 - 393 U/L [facility] Otheron 07-08-2020 Interpretation and review of laboratory results Normal [facility] Extra Tube Hold for add-ons. [facility] Comment on above: Auto resulted. URINALYSISon 07-08-2020 Bacteria Auto Ql (U) Rare Abnormal None Seen /hpf [facility] Bilirubin Ql (U) Negative Negative [facility] Clarity Refractometry automated (U) Clear Clear [facility] Color (U) Yellow Colorless, Yellow [facility] Epithelial cells.squamous Auto (Urine sed) [#/Area] 1 [facility] Glucose Auto test strip (U) [Mass/Vol] Negative Negative mg/dL [facility] Hemoglobin Auto test strip Ql (U) Negative Negative [facility] Interpretation and review of laboratory results Abnormal [facility] Ketones (U) [Mass/Vol] Negative Negative mg/dL [facility] Leukocyte esterase Auto test strip Ql (U) Negative Negative [facility] Nitrite Auto test strip Ql (U) Negative Negative [facility] pH (U) 7.5 [pH] High [facility] Protein (U) [Mass/Vol] Negative Negative mg/dL [facility] Specific gravity (U) [Rel density] 1.020 [facility] Urobilinogen (U) [Mass/Vol] <2.0 <2.0 mg/dL [facility] Microscopic examinat ion is performed on all urinalysis samples and only positive findings are reported. The test for blood on the chemical analytic portion of urinalysis may also be positive due to hemoglobinuria and myoglobinuria and if red blood cells are present they are quantified by microscopic examination. [facility] Urine Pregnancyon 07-08-2020 HCG ( test) Ql (U) Negative Negative [facility] Interpretation and review of laboratory results Normal [facility] CBC WITH AUTO DIFFERENTIALon 06-23-2020 Basophils (Bld) [#/Vol] 0.00 10*3/uL [facility] Basophils/100 WBC (Bld) 0.0 % [facility] Eosinophils (Bld) [#/Vol] 0.00 10*3/uL [facility] Eosinophils/100 WBC (Bld) 0.0 % [facility] Erythrocyte distribution width (RBC) [Entitic vol] 12.2 % 11.6 - 14.8 % [facility] Hematocrit (Bld) [Volume fraction] 37.2 % 36 - 46 % [facility] Hemoglobin (Bld) [Mass/Vol] 12.6 g/dL 12 - 16 g/dL [facility] Immature granulocytes (Bld) [#/Vol] 0.01 10*3/uL [facility] Immature granulocytes/100 WBC (Bld) 0.10 % [facility] Comment on above: The IG parameter is the percentage of metamyelocytes, myelocytes and promyelocytes. An immature granulocyte count (IG) of 1% or more suggests the possibility of infection, an IG count of 3% is very likely related to an infection. Interpretation and review of laboratory results Abnormal [facility] Lymphocytes (Bld) [#/Vol] 0.82 10*3/uL Low [facility] Lymphocytes/100 WBC (Bld) 6.8 % [facility] MCH (RBC) [Entitic mass] 29.3 pg 26 - 34 pg [facility] MCHC (RBC) [Mass/Vol] 33.9 g/dL 31 - 37 g/dL [facility] MCV (RBC) [Entitic vol] 86.5 fL 80 - 100 fL [facility] Monocytes (Bld) [#/Vol] 0.31 10*3/uL [facility] Monocytes/100 WBC (Bld) 2.6 % [facility] Neutrophils (Bld) [#/Vol] 10.86 10*3/uL High [facility] Neutrophils/100 WBC (Bld) 90.5 % [facility] Platelet mean volume (Bld) [Entitic vol] 12.1 fL 9.4 - 12.4 fL [facility] Platelets (Bld) [#/Vol] 197 10*3/uL [facility] RBC (Bld) [#/Vol] 4.30 10*6/uL [facility] ealth WBC (Bld) [#/Vol] 12.00 10*3/uL [facility] CBC WITH AUTO DIFFERENTIALon 06-22-2020 Basophils (Bld) [#/Vol] 0.02 10*3/uL [facility] Basophils/100 WBC (Bld) 0.1 % [facility] Eosinophils (Bld) [#/Vol] 0.00 10*3/uL [facility] Eosinophils/100 WBC (Bld) 0.0 % [facility] Erythrocyte distribution width (RBC) [Entitic vol] 12.0 % 11.6 - 14.8 % [facility] Hematocrit (Bld) [Volume fraction] 40.2 % 36 - 46 % [facility] Hemoglobin (Bld) [Mass/Vol] 14.0 g/dL 12 - 16 g/dL [facility] Immature granulocytes (Bld) [#/Vol] 0.02 10*3/uL [facility] Immature granulocytes/100 WBC (Bld) 0.10 % [facility] Comment on above: The IG parameter is the percentage of metamyelocytes, myelocytes and promyelocytes. An immature granulocyte count (IG) of 1% or more suggests the possibility of infection, an IG count of 3% is very likely related to an infection. Interpretation and review of laboratory results Abnormal [facility] Lymphocytes (Bld) [#/Vol] 1.20 10*3/uL [facility] Lymphocytes/100 WBC (Bld) 5.9 % [facility] MCH (RBC) [Entitic mass] 29.4 pg 26 - 34 pg [facility] MCHC (RBC) [Mass/Vol] 34.8 g/dL 31 - 37 g/dL [facility] MCV (RBC) [Entitic vol] 84.5 fL 80 - 100 fL [facility] Monocytes (Bld) [#/Vol] 0.67 10*3/uL [facility] Monocytes/100 WBC (Bld) 3.3 % [facility] Neutrophils (Bld) [#/Vol] 18.51 10*3/uL [facility] Neutrophils/100 WBC (Bld) 90.6 % [facility] Platelet mean volume (Bld) [Entitic vol] 11.7 fL 9.4 - 12.4 fL [facility] Platelets (Bld) [#/Vol] 223 10*3/uL [facility] RBC (Bld) [#/Vol] 4.76 10*6/uL [facility] WBC (Bld) [#/Vol] 20.42 10*3/uL [facility] COVID-19, MOLECULARon 2019 SARS-COV-2 (BERG ID) Not Detected Normal Not Detected [facility] Comment on above: Result Comment: This test was performed under the FDA's Emergency Use Authorization (EUA). Testing was performed using the [employer] ID NOW COVID-19 assay on the ID NOW platform. This test has not been approved for use in asymptomatic patients and its performance in this patient population has not been evaluated. Negative results do not rule out the presence of SARS-CoV-2/COVID-19. Fact sheets for the EUA can be found at the following links: For Healthcare Providers: https://www.fda.gov/media/405247/download For Patients: https://www.fda.gov/media/962879/download Performed By: #### L [id number] #### SH [address] [address] Kenneth Arrieta M.D. [id number] COVID-19, Molecularon 2019 Interpretation and review of laboratory results Normal [facility] SARS-CoV-2 Not Detected Not Detected [facility] Comment on above: This test was [...] at the following links: For Healthcare Providers: https://www.fda.gov/media/619472/download For Patients: https://www.fda.gov/media/504380/download CT ABDOMEN PELVIS WITH IV CO NTRAST [...] seen directed medially within the central anterior sud-gi-urslb pelvis. No bowel obstruction. Some physiologic free [...] is directed medially within the central anterior vhr-oc-tsims pelvis with no bowel obstruction. 3. Some [...] TueJun 22, 2020 8:48:07 PM EST Normal [facility] Comment on above: Order Comment: Injur [...] seen directed medially within the central anterior mbm-lm-iqklf pelvis. No bowel obstruction. Some physiologic free [...] is directed medially within the central anterior cky-un-rxmsh pelvis with no bowel obstruction. 3. Some physiologic free fluid in the cul-de-sac. Some small follicles seen in the ovaries bilaterally. Results were called by Dr. Clifford Wilson to Dr. ANDREY VALDEZ on 06/22/2020 at 16:43. GJT/dnb Workstation ID: [id number] [facility] 1. Acute appendiciti s. The appendix is seen just anterior to the right common iliac artery and is distended approaching 9 mm with wall enhancement and surrounding fatty stranding. 2. Moderate amount of fecal matter in the proximal colon. The cecum is directed medially within the central anterior xfh-iy-djtyz pelvis with no bowel obstruction. 3. Some physiologic free fluid in the cul-de-sac. Some small follicles seen in the ovaries bilaterally. Results were called by Dr. Clifford Wilson to Dr. ANDREY VALDEZ on 06/22/2020 at 16:43. StorytreeT/[employer]ap[employer] Workstation ID: [id number] [facility] EXAMINATION: CT ABDO MEN PELVIS WITH [...] seen directed medially within the central anterior zjn-ae-mcnty pelvis. No bowel obstruction. Some physiologic free fluid in the cul-de-sac. Some follicles seen in the ovaries bilaterally. The uterus and urinary bladder unremarkable. No acute osseous abnormality. [facility] Comprehensive Metabolic Pane kendra 06-22-2020 Albumin [Mass/Vol] 4.0 g/dL 3.2 - 5.2 g/dL [facility] ALP [Catalytic activity/Vol] 63 U/L 40 - 140 U/L [facility] ALT [Catalytic activity/Vol] 27 U/L 14 - 65 U/L [facility] Anion gap [Moles/Vol] 10 mmol/L 10 - 20 mmol/L [facility] AST [Catalytic activity/Vol] 18 U/L 0 - 45 U/L [facility] Bilirubin [Mass/Vol] 0.5 mg/dL 0 - 1.3 mg/dL [facility] Calcium [Mass/Vol] 9.1 mg/dL 8.4 - 10. 2 mg/dL [facility] Chloride [Moles/Vol] 109 mmol/L High 98 - 108 mmol/L [facility] Creatinine [Mass/Vol] 0.83 mg/dL 0.40 - 1.10 [facility] GFR/1.73 sq M predicted among non-blacks MDRD (S/P/Bld) [Vol rate/Area] The eGFR should be used for monitoring renal function only and not for medication dosing. [facility] GFR/1.73 sq M.predicted CKD-EPI (S/P/Bld) [Vol rate/Area] 98 >=60 mL/min/1.73 m2 [facility] Glucose [Mass/Vol] 96 mg/dL 65 - 99 mg/dL [facility] HCO3 [Moles/Vol] 25 mmol/L 21 - 32 mmol/L [facility] Potassium [Moles/Vol] 3.7 mmol/L 3.5 - 5.1 mmol/L [facility] Protein [Mass/Vol] 7.8 g/dL 6 - 8 g/dL [facility] Sodium [Moles/Vol] 140 mmol/L 135 - 145 mmol/L [facility] Urea nitrogen [Mass/Vol] 10 mg/dL 8 - 25 mg/dL [facility] Urea nitrogen/Creatinin e [Mass ratio] 12.0 mg/mg [facility] ECG 12-LEADon 06-22-2020 Andrey Valdez MD 2019 4:57 PM ECG 12 Lead Date/Time: 06/22/2020 4:51 PM Performed by: Andrey Valdez MD Authorized by: Andrey Valdez MD Interpreted by ED attending physician Comparison: not compared with previous ECG Rhythm: sinus rhythm BPM: 85 CT Interval: 108 QRS Interval: 82 QT Interval: 426 Clinical impression: non-specific ECG [facility] Lipaseon 06-22-2020 Lipase [Catalytic activity/Vol] 72 U/L Low 73 - 393 U/L [facility] Otheron 06-22-2020 Interpretation and review of laboratory results Abnormal [facility] URINALYSISon 06-22-2020 Bacteria Auto Ql (U) Few Abnormal None Seen /hpf [facility] Bilirubin Ql (U) Negative Negative [facility] th Clarity Refractometry automated (U) Cloudy Abnormal Clear [facility] Color (U) Yellow Colorless, Yellow [facility] Epithelial cells.squamous Auto (Urine sed) [#/Area] 3 [facility] Glucose Auto test strip (U) [Mass/Vol] Negative Negative mg/dL [facility] Hemoglobin Auto test strip Ql (U) Negative Negative [facility] Interpretation and review of laboratory results Abnormal [facility] Ketones (U) [Mass/Vol] 20 Abnormal Negative mg/dL [facility] Leukocyte esterase Auto test strip Ql (U) Negative Negative [facility] Nitrite Auto test strip Ql (U) Negative Negative [facility] pH (U) 7.0 [pH] [facility] Protein (U) [Mass/Vol] Negative Negative mg/dL [facility] Specific gravity (U) [Rel density] 1.020 [facility] Urobilinogen (U) [Mass/Vol] <2.0 <2.0 mg/dL [facility] WBC Auto (Urine sed) [#/Area] 2 [facility] Microscopic examinat ion is performed on all urinalysis samples and only positive findings are reported. The test for blood on the chemical analytic portion of urinalysis may also be positive due to hemoglobinuria and myoglobinuria and if red blood cells are present they are quantified by microscopic examination. [facility] Urine Pregnancyon 06-22-2020 HCG ( test) Ql (U) Negative Negative [facility] Interpretation and review of laboratory results Normal [facility] Vital Signs Date Time Vital Sign Value Performing Clinician Faci lity 07-08-2020 15:34-0500 BP Diastolic 79 mm[Hg] [facility] 07-08-2020 15:34-0500 BP Systolic 125 mm[Hg] [facility] 07-08-2020 15:34-0500 Pulse (Heart Rate) 81 /min [facility] 07-08-2020 15:34-0500 Pulse Oximetry 99 % [facility] 07-08-2020 15:34-0500 Respiratory Rate 16 /min [facility] 07-08-2020 13:50-0500 BMI (Body Mass Index) 20.36 kg/m2 [facility] 07-08-2020 13:50-0500 Body Temperature 98.49 [degF] [facility] 07-08-2020 13:50-0500 Body weight 58.97 kg [facility] 07-08-2020 13:50-0500 [facility] 07:35-0500 Body Temperature 98.01 [degF] And[facility] 06-23-2020 07:35-0500 BP Diastolic 68 mm[Hg] [facility] 06-23-2020 07:35-0500 BP Systolic 106 mm[Hg] [facility] 06-23-2020 07:35-0500 Pulse (Heart Rate) 75 /min [facility] 06-23-2020 07:35-0500 Pulse Oximetry 94 % [facility] 06-23-2020 07:35-0500 Respiratory Rate 16 /min [facility] 06-22-2020 14:15-0500 BMI (Body Mass Index) 20.36 kg/m2 [facility] 06-22-2020 14:15-0500 Body weight 58.97 kg [facility] 06-22-2020 14:15-0500 Height 170.2 cm [facility] Encounters Encounter Date Encounter Type Care Provider [...] End: 07-08-2020 Emergency department patient visit PHYSICIAN [facility] Start: 07-08-2020 End: 07-08-2020 Emergency department patient visit Kate Mendoza Work Phone: [facility] Comment on above: Abdominal pain, unsp ecified abdominal location (Primary Dx) Start: 06-22-2020 End: 06-23-2020 Patient encounter procedure PHYSICIAN [facility] Start: 06-22-2020 End: 06-23-2020 Emergency department patient visit Andrey Valdez Work Phone: [facility] Comment on above: Acute [...] Phone: Start: 06-22-2020 12 lead ECG Andrey Wu Work Phone: Start: 06-22-2020 Ct abdomen & pelvis w/contrast material Andrey Valdez Work Phone: Start: 06-22-2020 Complete blood count with white cell differential, automated Clinton Wu Work Phone: Start: 06-22-2020 Complete blood count with white cell differential, manual Clinton Wu Work Phone: Start: 06-22-2020 Comprehensive metabolic 2000 panel - Serum or Plasma Andrey Wu Work Phone: Start: 06-22-2020 Lipase [Enzymatic activity/volume] in Serum or Plasma Andrey Demario Work Phone: Start: 06-22-2020 Choriogonadotropin ( test) [Presence] in Urine Andrey Valdez Work Phone: Start: 06-22-2020 Urinalysis Andrey aVldez Work Phone: Plan of Treatment Date Care Activity Detail Author Start: 04-22-2020 Influenza vaccination given Se quential Influenza Vaccine (#1) [facility] Start: 2012 Hepatitis C antibody , confirmatory test Hepatitis C Screening [facility] Start: 2009 HIV screening HIV Screening [facility] Start: 2006 Adolescent depressio n screening assessment Depression Screening (PHQ9) [facility] Start: 2005 Vaccination for tri n papillomavirus HPV Vaccines (1 - 2-dose series) [facility] Start: 1997 History and physical examination, annual for health maintenance Wellness Visit [facility] Start: 1994 Screening for malign ant neoplasm of cervix Pap Smear [facility] Start: 1994 Tetanus vaccination Tetanus: Every 1 0yrs [facility] Procedure on tissue specimen Tis kyara Exam Pathology and Cytology STAT Release Upon Ordering for 1 Occurrences starting 06/22/2020 [facility] Comment on above: Release Upon Orderin g for 1 Occurrences starting 06/22/2020 Payers Date Payer Category Payer Unknown [employer] PPO [id number] 2019-Present [id number] 2019 Unknown [id number] 1994 Unknown [id number] 1994 Unknown [id number] [id number] 1994 Unknown [id number] [id number]3 1994 Unknown [id number] 2.16.840.1.400348.3.579.2.593 1994 Unknown [id number] 2.16.840.1.093975.3.579.2.593 1994 Unknown [id number] 2.16.840.1.376109.3.579.2.593 1994 Unknown [id number] 2.16.840.1.533416.3.579.2.9 1994 Unknown [id number] 2.16.840.1.340241.3.579.2.9 1994 Unknown [id number] 2.16.840.1.991138.3.579.2.9 1994 Unknown [id number] 2.16.840.1.307560.3.579.2.1258 1994 Unknown [id number] 2.16.840.1.507659.3.579.2.9 1994 Unknown [id number] 2.16.840.1.827338.3.579.2.1258 1994 Unknown [id number] 2.16.840.1.862324.3.579.2.1258 1994 Unknown [id number] 2.16.840.1.745071.3.579.2.1258 1994 Unknown [id number] 2.16.840.1.734334.3.579.2.9 1994 Unknown [id number] 2.16.840.1.262809.3.579.2.1258 1994 Unknown [id number] 2.16.840.1.860460.3.579.2.1259 1959 Unknown [id number] Social History Date Type Detail Facility Start: 06-23-2020 End: 07-08-2020 Tobacco smoking status NHIS Never smoker [facility] Start: 06-23-2020 End: 07-08-2020 Tobacco use and exposure Never used [facility] Start: 06-23-2020 End: 07-08-2020 Alcohol intake Ex-drinker (finding) [facility] Sex Assigned At Not on file [facility] Exposure to SARS-CoV-2 (event) Not sure [facility] Discharge Instructions * Instructions* Magdi Salazar MD - 06/23/[address] Salazar (Hernia Repair/Gallbladder) [phone] No Lifting, no bending, no pushing May [...] A MEDICAL NATURE, CALL YOUR DOCTOR/EMERGENCY ROOM. [facility] [phone] Make a follow-up appointment with your surgeon. Post Operative Instructions Dr Salazar (Hernia Repair/Gallbladder) [phone] No Lifting, no bending, no pushing May [...] A MEDICAL NATURE, CALL YOUR DOCTOR/EMERGENCY ROOM. [facility] [phone] Make a follow-up appointment with your surgeon. documented in this encounter* Attachments The following attachments cannot be sent through Care Everywhere. * Abdominal Pain (Kenyan) documented in this encounter Assessments Diagnosis Acute appendicitis with localized peritonitis, without perforation, abscess, or gangrene- Primary Diagnosis Abdominal pain, unspecified abdominal location- Primary Advance Directives No Advanced Directives Records FoundDocuments on File Type Date Recorded Patient Social Media Marketing Manager Expl anation Advance Directives and Livin g Will 06/22/2020 1:08 PM Documents on File Type Date Recorded Patient Social Media Marketing Manager Expl anation Advance Directives and Livin g [...] and content) Patient's name Mele Thompson, STELLA #[id number] Age [age] years old date of 1995 [...] ED Notes (unrecognized secti on and content) [facility] ED Attending Note: NAME: Mele Thompson 24 y.o. 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 Patient is to be kept n.p.o. He would like 3.375 of Zosyn given to the patient. He would like the patient admitted to his service. Clinical Impression: 1. Acute appendicitis with localized peritonitis, without perforation, abscess, or gangrene Disposition: hospitalize to Operating Room Andrey Valdez M.D. Attending Physician [facility] Emergency Departments 06/22/2020 Portions of [...] lobby. Pt alert, oriented and stable at nj. ED PROVIDER NOTE [facility] EM[facility] NAME: Mele Thompson AGE: 24 y.o. : 1995 VISIT DATE: 07/08/2020 CSN: [id number] PCP: Physician No Chief Complaint Patient presents [...] file Gets together: Not on file Attends denominational service: Not on file Active member of [...] Colorless, Yellow Clarity, Urine Clear Clear Specific [place] 1.020 1.005 - 1.025 pH, Urine 7.5 [...] MD. Specialty: General Surgery E [facility] [id number] Contact information for after-discharge care Follow-up information [...] change in drainage on op-sites. MELE THOMPSON [facility] [id number] [facility] [id number] 1995 DATE 06/22/2020 OPERATIVE REPORT SURGEON MAGDI [...] utilizing 0 Ethibond with an open technique. Xdfqwe-op-efzey suture was placed after complete desufflation of [...] appendicitis. MAGDI SALAZAR MD D 06/22/2020 20:33 [id number] T 06/23/2020 01:38 VMT/MODL Umbilical dressing saturated with light pink serous drainage.Pubic dressing 1/2 saturated with shadow of pink drainage. Brief Post Operative Note Patient Name: Mele Thompson : 1995 (24 y.o.) Date of Service: 06/22/2020 CSN: [id number] Procedure(s): APPENDECTOMY LAPAROSCOPIC Pre-Operative Diagnoses: RIGHT SIDED ABDOMINAL PAIN - ACUTE APPENDICITIS Post-Operative Diagnoses: ACUTE RETROCECAL APPENDICITIS Surgeon(s) and Role: * Magdi Salazar MD - Primary Anesthesiologist: Jaylin Buckley MD Operations And Maintenance Supervisor: Tanisha Varghese RN Scrub Person Assist: Jadyn [...] section and content) DATE CREATED AUTHOR 07/13/2020 [facility] DATE CREATED AUTHOR AUTHOR'S ORGANIZ ATION 01/28/[address] [facility] DATE CREATED AUTHOR AUTHOR'S ORGANIZ ATION 05/18/2024 [facility] PERTAINING [...] BE BASED ON THE PRIMARY CLINICAL RECORDS. [employer] [facility]. provides no warranty or guarantee of the accuracy or completeness of information in this document.
[2024-05-22 13:25] VITALS: BP 113/57; PULSE 114
== END 2024-05-22 14:06 | disposition home or self-care (01) ==
LOC: US 07:14 → FBC 12:56
PROVIDERS: PCP Obstetrics & Gynecology; Visit Provider Physician Assistant
DX: O26.893 Other specified pregnancy related conditions, third trimester (principal); Z87.39 Personal history of other diseases of the musculoskeletal system and connective tissue; Z3A.38 38 weeks gestation of pregnancy
CPT/HCPCS: 76818

== ENCOUNTER 2024-05-25 07:06 | Outpatient (OUT) | payer BC, SELFPAY ==
--- OUTSIDE RECORDS SUMMARY | 2024-05-25 07:10 | XMS_ITS | CCD ---
Author Organization [facility] Care Team Providers Care Case Coordinator Name Role Phone No, Physician Primary Care [...] HCGon 01-19-2023 HCG QUANT 67 mIU/mL Normal [facility] Comment on above: Performed By: #### P REGQNT #### [facility] [address] [place] [address] Dr. Tammi Fleming HCG RANGE SEE BELOW Normal [facility] Comment on above: Result Comment: 5-50 0.2-1 WEEK 50-500 1-2 WEEKS 100-5,000 2-3 WEEKS 500-10,000 3-4 WEEKS 1,000-50,000 4-5 WEEKS 10,000-100,000 5-6 WEEKS 15,000-200,000 6-8 WEEKS 10,000-100,000 2-3 MONTHS Performed By: #### P REGQNT #### [facility] [address] [place] [address] Dr. Tammi Fleming PREG QUANT HCGon 01-10-2023 HCG QUANT 231 mIU/mL Normal [facility] Comment on above: Performed By: #### P REGQNT #### [facility] [address] [place] [address] Dr. Tammi Fleming HCG RANGE SEE BELOW Normal [facility] Comment on above: Result Comment: 5-50 0.2-1 WEEK 50-500 1-2 WEEKS 100-5,000 2-3 WEEKS 500-10,000 3-4 WEEKS 1,000-50,000 4-5 WEEKS 10,000-100,000 5-6 WEEKS 15,000-200,000 6-8 WEEKS 10,000-100,000 2-3 MONTHS Performed By: #### P REGQNT #### [facility] [address] [place] [address] Dr. Tammi Fleming CBC AUTO DIFFon 01-04-2023 BASO # 0.0 103/ul Normal 0.0-0.1 [facility] Comment on above: Performed By: #### C BC #### [facility] [address] [place] [address] Dr. Tammi Fleming Basophils/100 WBC (Bld) 0.3 % Normal 0.2-2.0 [facility] Comment on above: Performed By: #### C BC #### [facility] [address] [place] [address] Dr. Tammi Fleming EO # 0.1 103/ul Normal 0.0-0.7 [facility] Comment on above: Performed By: #### C BC #### [facility] [address] [place] [address] Dr. Tammi Fleming Eosinophils/100 WBC (Bld) 0.8 % Critically low 0.9-7.0 [facility] Comment on above: Performed By: #### C BC #### [facility] [address] [place] [address] Dr. Tammi Fleming Erythrocyte distribution width (RBC) [Ratio] 12.0 % Normal 11.0-15.0 [facility] Comment on above: Performed By: #### C BC #### [facility] [address] [place] [address] Dr. Tammi Fleming Hematocrit (Bld) [Volume fraction] 42.6 % Normal 36.0-48.0 [facility] Comment on above: Performed By: #### C BC #### [facility] [address] [place] [address] Dr. Tammi Fleming Hemoglobin (Bld) [Mass/Vol] 14.5 g/dL Normal 12.0-16.0 [facility] Comment on above: Performed By: #### C BC #### [facility] [address] [place] [address] Dr. Tammi Fleming IG # 0.02 10e3/ul Normal 0.00-0.03 [facility] Comment on above: Performed By: #### C BC #### [facility] [address] [place] [address] Dr. Tammi Fleming IG % 0.3 % Normal 0.0-0.5 [facility] Comment on above: Performed By: #### C BC #### [facility] [address] [place] [address] Dr. Tammi Fleming LYMPH # 1.6 103/ul Normal 1.2-3.8 [facility] Comment on above: Performed By: #### C BC #### [facility] [address] [place] [address] Dr. Tammi Fleming Lymphocytes/100 WBC (Bld) 19.9 % Critically low 20.5-60.0 [facility] Comment on above: Performed By: #### C BC #### [facility] [address] [place] [address] Dr. Tammi Fleming MANUAL DIFF REQ NO Normal [facility] Comment on above: Performed By: #### C BC #### [facility] [address] [place] [address] Dr. Tammi Fleming MCH (RBC) [Entitic mass] 29.8 pg Normal 26.7-34.0 [facility] Comment on above: Performed By: #### C BC #### [facility] [address] [place] [address] Dr. Tammi Fleming MCHC (RBC) [Mass/Vol] 34.0 g/dL Normal 29.9-35.2 [facility] Comment on above: Performed By: #### C BC #### [facility] [address] [place] [address] Dr. Tammi Fleming MCV (RBC) [Entitic vol] 87.7 fL Normal 81.0-99.0 [facility] Comment on above: Performed By: #### C BC #### [facility] [address] [place] [address] Dr. Tammi Fleming MONO # 0.4 103/ul Normal 0.3-0.8 [facility] Comment on above: Performed By: #### C BC #### [facility] [address] [place] [address] Dr. Tammi Fleming Monocytes/100 WBC (Bld) 5.0 % Normal 1.7-12.0 [facility] Comment on above: Performed By: #### C BC #### [facility] [address] [place] [address] Dr. Tammi Fleming NEUT # 5.8 103/ul Normal 1.4-6.5 [facility] Comment on above: Performed By: #### C BC #### [facility] [address] [place] [address] Dr. Tammi Fleming Neutrophils/100 WBC (Bld) 73.7 % Normal 43.0-75.0 [facility] Comment on above: Performed By: #### C BC #### [facility] [address] [place] [address] Dr. Tammi Fleming Platelet mean volume (Bld) [Entitic vol] 12.1 fL Normal 9.5-13.5 [facility] Comment on above: Performed By: #### C BC #### [facility] [address] [place] [address] Dr. Tammi Fleming PLT 184 103/ul Normal 150-450 [facility] Comment on above: Performed By: #### C BC #### [facility] [address] [place] [address] Dr. Tammi Fleming RBC 4.86 106/ul Normal 4.20-5.40 [facility] Comment on above: Performed By: #### C BC #### [facility] [address] [place] [address] Dr. Tammi Fleming WBC 7.9 103/ul Normal 4.0-11.0 [facility] Comment on above: Performed By: #### C BC #### [facility] [address] [place] [address] Dr. Tammi Fleming ER URINE PROFILEon 3 Bilirubin Ql (U) Negative Normal NEGATIVE [facility] Comment on above: Performed By: #### E RUR, UMICRO #### [facility] [address] [place] [address] Dr. Tammi Fleming Clarity (U) CLEAR Normal CLEAR [facility] Comment on above: Performed By: #### E RUR, UMICRO #### [facility] [address] [place] [address] Dr. Tammi Fleming Color (U) LT. YELLOW Normal YELLOW [facility] Comment on above: Performed By: #### E RUR, UMICRO #### [facility] [address] [place] [address] Dr. Tammi Fleming ERUKATIED A micrscopic examina tion will be performed if indicated. Normal [facility] Comment on above: Performed By: #### Angela RUR, UMICRO #### [facility] [address] [place] [address] Dr. Tammi Fleming Glucose Ql (U) Negative Normal NEGATIVE [facility] Comment on above: Performed By: #### E RUR, UMICRO #### [facility] [address] [place] [address] Dr. Tammi Fleming Hemoglobin Ql (U) LARGE Abnormal NEGATIVE [facility] Comment on above: Performed By: #### E RUR, UMICRO #### [facility] [address] [place] [address] Dr. Tammi Fleming Ketones Ql (U) Negative Normal NEGATIVE [facility] Comment on above: Performed By: #### E RUR, UMICRO #### [facility] [address] [place] [address] Dr. Tammi Fleming LEUKOCYTES Negative Normal NEGATIVE [facility] Comment on above: Performed By: #### CIRILO SORTO #### [facility] [address] [place] [address] Dr. Tammi Fleming Nitrite Ql (U) Negative Normal NEGATIVE [facility] Comment on above: Performed By: #### CIRILO SORTO #### [facility] [address] [place] [address] Dr. Tammi Fleming pH (U) 7.0 [pH] Normal 5-9 [facility] Comment on above: Performed By: #### CIRILO SORTO #### [facility] [address] [place] [address] Dr. Tammi Fleming SPEC GRAVITY <=1.005 Abnormal 1.005-<=1.025 [facility] Comment on above: Performed By: #### CIRILO SORTO #### [facility] [address] [place] [address] Dr. Tammi Fleming UA PROTEIN Negative Normal NEGATIVE/ TRACE [facility] Comment on above: Performed By: #### CIRILO SORTO #### [facility] [address] [place] [address] Dr. Tammi Fleming UR MICRO IND INDICATED Normal [facility] Comment on above: Performed By: #### CIRILO SORTO #### [facility] [address] [place] [address] Dr. Tammi Fleming Urobilinogen Qn (U) 0.2 {Elder'U}/dL Normal 0.2 - 1.0 [facility] Comment on above: Performed By: #### CIRILO SORTO #### [facility] [address] [place] [address] Dr. Tammi Fleming PREG QUANT HCGon 01-04-2023 HCG QUANT 4523 mIU/mL Normal [facility] Comment on above: Performed By: #### P REGQNT #### [facility] [address] [place] [address] Dr. Tammi Fleming HCG RANGE SEE BELOW Normal [facility] Comment on above: Result Comment: 5-50 0.2-1 WEEK 50-500 1-2 WEEKS 100-5,000 2-3 WEEKS 500-10,000 3-4 WEEKS 1,000-50,000 4-5 WEEKS 10,000-100,000 5-6 WEEKS 15,000-200,000 6-8 WEEKS 10,000-100,000 2-3 MONTHS Performed By: #### P REGQNT #### [facility] [address] [place] [address] Dr. Tammi Fleming URINE MICROSCOPIC ONLYon BACTERIA TRACE Abnormal NONE SEEN [facility] Comment on above: Performed By: #### Angela CHRISTIE UMICRO #### [facility] [address] [place] [address] Dr. Tammi Fleming Bacteria identified Cx Nom (U) NOT INDICATED Normal [facility] Comment on above: Performed By: #### Angela CHRISTIE UMICRO #### [facility] [address] [place] [address] Dr. Tammi Fleming CAST NONE SEEN Normal NONE SEEN [facility] Comment on above: Performed By: #### Angela CHRISTIE UMICRO #### [facility] [address] [place] [address] Dr. Tammi Fleming Crystals LM Nom (Urine sed) NONE SEEN Normal NONE SEEN [facility] Comment on above: Performed By: #### Angela CHRISTIE UMICRO #### [facility] [address] [place] [address] Dr. Tammi Fleming Epithelial cells LM Ql (Urine sed) NONE SEEN Normal NONE SEEN /RARE [facility] Comment on above: Performed By: #### Angela CHRISTIE UMICRO #### [facility] [address] [place] [address] Dr. Tammi Fleming MUCOUS NONE SEEN Normal NONE SEEN [facility] Comment on above: Performed By: #### Angela CHRISTIE UMICRO #### [facility] [address] [place] [address] Dr. Tammi Fleming RBC 2-5 Abnormal 0-2 [facility] Comment on above: Performed By: #### E CIRILO CHRISTIE #### [facility] [address] [place], [place] [address] Dr. Tammi Fleming WBC NONE SEEN Normal NONE SEEN [facility] Comment on above: Performed By: #### E CIRILO CHRISTIE #### [facility] [address] [place], [place] [address] Dr. Tammi Fleming US PREG TVon 01-04-2023 [...] Date: 2023-01-04 18:08 Normal [facility] BMPon 07-08-2020 Anion gap [Moles/Vol] 11 mmol/L 10 - 20 mmol/L [facility] Calcium [Mass/Vol] 9.5 mg/dL 8.4 - 10. 2 mg/dL [facility] Chloride [Moles/Vol] 109 mmol/L High 98 - 108 mmol/L [facility] Creatinine [Mass/Vol] 0.85 mg/dL 0.40 - 1.10 [facility] GFR/1.73 sq M predicted among non-blacks MDRD (S/P/Bld) [Vol rate/Area] The eGFR should be used for monitoring renal function only and not for medication dosing. [facility] GFR/1.73 sq M.predicted CKD-EPI (S/P/Bld) [Vol rate/Area] 96 >=60 mL/min/1.73 m2 [facility] Glucose [Mass/Vol] 95 mg/dL 65 - 99 mg/dL [facility] HCO3 [Moles/Vol] 23 mmol/L 21 - 32 mmol/L [facility] Interpretation and review of laboratory results Abnormal [facility] Potassium [Moles/Vol] 3.5 mmol/L 3.5 - 5.1 mmol/L [facility] Sodium [Moles/Vol] 139 mmol/L 135 - 145 mmol/L [facility] Urea nitrogen [Mass/Vol] 10 mg/dL 8 - 25 mg/dL [facility] Urea nitrogen/Creatinin e [Mass ratio] 11.8 mg/mg [facility] CBC WITH AUTO DIFFERENTIALon 07-08-2020 Basophils (Bld) [#/Vol] 0.02 10*3/uL [facility] Basophils/100 WBC (Bld) 0.2 % [facility] Eosinophils (Bld) [#/Vol] 0.04 10*3/uL [facility] Eosinophils/100 WBC (Bld) 0.5 % [facility] Erythrocyte distribution width (RBC) [Entitic vol] 12.0 % 11.6 - 14.8 % [facility] Hematocrit (Bld) [Volume fraction] 43.3 % 36 - 46 % [facility] Hemoglobin (Bld) [Mass/Vol] 14.7 g/dL 12 - 16 g/dL [facility] Immature granulocytes (Bld) [#/Vol] 0.00 10*3/uL [facility] Immature granulocytes/100 WBC (Bld) 0.00 % [facility] Comment on above: The IG parameter is the percentage of metamyelocytes, myelocytes and promyelocytes. An immature granulocyte count (IG) of 1% or more suggests the possibility of infection, an IG count of 3% is very likely related to an infection. Lymphocytes (Bld) [#/Vol] 2.44 10*3/uL [facility] Lymphocytes/100 WBC (Bld) 30.2 % [facility] MCH (RBC) [Entitic mass] 29.2 pg 26 - 34 pg [facility] MCHC (RBC) [Mass/Vol] 33.9 g/dL 31 - 37 g/dL [facility] MCV (RBC) [Entitic vol] 86.1 fL 80 - 100 fL [facility] Monocytes (Bld) [#/Vol] 0.40 10*3/uL [facility] Monocytes/100 WBC (Bld) 5.0 % [facility] Neutrophils (Bld) [#/Vol] 5.17 10*3/uL [facility] Neutrophils/100 WBC (Bld) 64.1 % [facility] Platelet mean volume (Bld) [Entitic vol] 11.8 fL 9.4 - 12.4 fL [facility] Platelets (Bld) [#/Vol] 228 10*3/uL [facility] RBC (Bld) [#/Vol] 5.03 10*6/uL [facility] WBC (Bld) [#/Vol] 8.07 10*3/uL [facility] ABDOMEN PELVIS WITH IV CO [...] 2020 3:59:53 PM EST Normal [facility] Comment on above: Order Comment: Injur [...] recent appendectomy. Workstation ID: [id number] [facility] EXAMINATION: CT ABDO MEN PELVIS [...] or aggressive osseous abnormality identified. [facility] 1. No acute infectio us, inflammatory or obstructive process identified in the abdomen or pelvis. 2. Postsurgical changes from recent appendectomy. Workstation ID: [id number] [facility] Hepatic Function Panel (LFT) on 07-08-2020 Albumin [Mass/Vol] 3.8 g/dL 3.2 - 5.2 g/dL [facility] ALP [Catalytic activity/Vol] 71 U/L 40 - 140 U/L [facility] ALT [Catalytic activity/Vol] 31 U/L 14 - 65 U/L [facility] AST [Catalytic activity/Vol] 18 U/L 0 - 45 U/L [facility] Bilirubin [Mass/Vol] 0.3 mg/dL 0 - 1.3 mg/dL [facility] Bilirubin.conjugat ed [Mass/Vol] mg/dL 0 - 0.4 mg/dL [facility] Protein [Mass/Vol] 7.9 g/dL 6 - 8 g/dL [facility]th Lipaseon 07-08-2020 Lipase [Catalytic activity/Vol] 95 U/L 73 - 393 U/L [facility] Otheron 07-08-2020 Interpretation and review of laboratory results Normal [facility] Extra Tube Hold for add-ons. [facility] Comment on above: Auto resulted. URINALYSISon 07-08-2020 Bacteria Auto Ql (U) Rare Abnormal None Seen /hpf [facility] Bilirubin Ql (U) Negative Negative [facility] Clarity Refractometry automated (U) Clear Clear [facility] Color (U) Yellow Colorless, Yellow [facility] Epithelial cells.squamous Auto (Urine sed) [#/Area] 1 [facility] Glucose Auto test strip (U) [Mass/Vol] Negative Negative mg/dL [facility] Hemoglobin Auto test strip Ql (U) Negative Negative [facility] Interpretation and review of laboratory results Abnormal [facility] Ketones (U) [Mass/Vol] Negative Negative mg/dL [facility] Leukocyte esterase Auto test strip Ql (U) Negative Negative [facility] Nitrite Auto test strip Ql (U) Negative Negative [facility] pH (U) 7.5 [pH] High [facility] Protein (U) [Mass/Vol] Negative Negative mg/dL [facility] Specific gravity (U) [Rel density] 1.020 [facility] Urobilinogen (U) [Mass/Vol] <2.0 <2.0 mg/dL [facility] Microscopic examinat ion is performed on all urinalysis samples and only positive findings are reported. The test for blood on the chemical analytic portion of urinalysis may also be positive due to hemoglobinuria and myoglobinuria and if red blood cells are present they are quantified by microscopic examination. [facility] Urine Pregnancyon 07-08-2020 HCG ( test) Ql (U) Negative Negative [facility] Interpretation and review of laboratory results Normal [facility] CBC WITH AUTO DIFFERENTIALon 06-23-2020 Basophils (Bld) [#/Vol] 0.00 10*3/uL [facility] Basophils/100 WBC (Bld) 0.0 % [facility] Eosinophils (Bld) [#/Vol] 0.00 10*3/uL [facility] Eosinophils/100 WBC (Bld) 0.0 % [facility] Erythrocyte distribution width (RBC) [Entitic vol] 12.2 % 11.6 - 14.8 % [facility] Hematocrit (Bld) [Volume fraction] 37.2 % 36 - 46 % [facility] Hemoglobin (Bld) [Mass/Vol] 12.6 g/dL 12 - 16 g/dL [facility] Immature granulocytes (Bld) [#/Vol] 0.01 10*3/uL [facility] Immature granulocytes/100 WBC (Bld) 0.10 % [facility] Comment on above: The IG parameter is the percentage of metamyelocytes, myelocytes and promyelocytes. An immature granulocyte count (IG) of 1% or more suggests the possibility of infection, an IG count of 3% is very likely related to an infection. Interpretation and review of laboratory results Abnormal [facility] Lymphocytes (Bld) [#/Vol] 0.82 10*3/uL Low [facility] Lymphocytes/100 WBC (Bld) 6.8 % [facility] MCH (RBC) [Entitic mass] 29.3 pg 26 - 34 pg [facility] MCHC (RBC) [Mass/Vol] 33.9 g/dL 31 - 37 g/dL [facility] MCV (RBC) [Entitic vol] 86.5 fL 80 - 100 fL [facility] Monocytes (Bld) [#/Vol] 0.31 10*3/uL [facility] Monocytes/100 WBC (Bld) 2.6 % [facility] Neutrophils (Bld) [#/Vol] 10.86 10*3/uL High [facility] Neutrophils/100 WBC (Bld) 90.5 % [facility] Platelet mean volume (Bld) [Entitic vol] 12.1 fL 9.4 - 12.4 fL [facility] Platelets (Bld) [#/Vol] 197 10*3/uL [facility] RBC (Bld) [#/Vol] 4.30 10*6/uL [facility] ealth WBC (Bld) [#/Vol] 12.00 10*3/uL [facility] CBC WITH AUTO DIFFERENTIALon 06-22-2020 Basophils (Bld) [#/Vol] 0.02 10*3/uL [facility] Basophils/100 WBC (Bld) 0.1 % [facility] Eosinophils (Bld) [#/Vol] 0.00 10*3/uL [facility] Eosinophils/100 WBC (Bld) 0.0 % [facility] Erythrocyte distribution width (RBC) [Entitic vol] 12.0 % 11.6 - 14.8 % [facility] Hematocrit (Bld) [Volume fraction] 40.2 % 36 - 46 % [facility] Hemoglobin (Bld) [Mass/Vol] 14.0 g/dL 12 - 16 g/dL [facility] Immature granulocytes (Bld) [#/Vol] 0.02 10*3/uL [facility] Immature granulocytes/100 WBC (Bld) 0.10 % [facility] Comment on above: The IG parameter is the percentage of metamyelocytes, myelocytes and promyelocytes. An immature granulocyte count (IG) of 1% or more suggests the possibility of infection, an IG count of 3% is very likely related to an infection. Interpretation and review of laboratory results Abnormal [facility] Lymphocytes (Bld) [#/Vol] 1.20 10*3/uL [facility] Lymphocytes/100 WBC (Bld) 5.9 % [facility] [facility] MCH (RBC) [Entitic mass] 29.4 pg 26 - 34 pg [facility] MCHC (RBC) [Mass/Vol] 34.8 g/dL 31 - 37 g/dL [facility] MCV (RBC) [Entitic vol] 84.5 fL 80 - 100 fL [facility] Monocytes (Bld) [#/Vol] 0.67 10*3/uL [facility] Monocytes/100 WBC (Bld) 3.3 % [facility] Neutrophils (Bld) [#/Vol] 18.51 10*3/uL [facility] Neutrophils/100 WBC (Bld) 90.6 % [facility] Platelet mean volume (Bld) [Entitic vol] 11.7 fL 9.4 - 12.4 fL [facility] Platelets (Bld) [#/Vol] 223 10*3/uL [facility] RBC (Bld) [#/Vol] 4.76 10*6/uL [facility] WBC (Bld) [#/Vol] 20.42 10*3/uL [facility] COVID-19, MOLECULARon 2019 SARS-COV-2 (BERG ID) Not Detected Normal Not Detected [facility] Comment on above: Result Comment: This test was performed under the FDA's Emergency Use Authorization (EUA). Testing was performed using the [employer] ID NOW COVID-19 assay on the ID NOW platform. This test has not been approved for use in asymptomatic patients and its performance in this patient population has not been evaluated. Negative results do not rule out the presence of SARS-CoV-2/COVID-19. Fact sheets for the EUA can be found at the following links: For Healthcare Providers: https://www.fda.gov/media/956898/download For Patients: https://www.fda.gov/media/966244/download Performed By: #### L [id number] #### SH [address] [address] Kenneth Arrieta M.D. [id number] COVID-19, Molecularon 2019 Interpretation and review of laboratory results Normal [facility] SARS-CoV-2 Not Detected Not Detected [facility] Comment on above: This test [...] at the following links: For Healthcare Providers: https://www.fda.gov/media/579572/download For Patients: https://www.fda.gov/media/627092/download CT ABDOMEN PELVIS WITH IV CO NTRAST [...] seen directed medially within the central anterior zsl-qs-ddbab pelvis. No bowel obstruction. Some physiologic free [...] is directed medially within the central anterior ffh-tf-xfdsi pelvis with no bowel obstruction. 3. Some [...] 2020 8:48:07 PM EST Normal [facility] Comment on above: Order Comment: Injur [...] seen directed medially within the central anterior pww-en-wzynv pelvis. No bowel obstruction. Some physiologic free [...] is directed medially within the central anterior ulh-ep-zbmwe pelvis with no bowel obstruction. 3. Some physiologic free fluid in the cul-de-sac. Some small follicles seen in the ovaries bilaterally. Results were called by Dr. Clifford Wilson to Dr. ANDREY VALDEZ on 06/22/2020 at 16:43. GJT/dnb Workstation ID: [id number] [facility] 1. Acute appendiciti s. The appendix is seen just anterior to the right common iliac artery and is distended approaching 9 mm with wall enhancement and surrounding fatty stranding. 2. Moderate amount of fecal matter in the proximal colon. The cecum is directed medially within the central anterior grd-dz-ilyac pelvis with no bowel obstruction. 3. Some physiologic free fluid in the cul-de-sac. Some small follicles seen in the ovaries bilaterally. Results were called by Dr. Clifford Wilson to Dr. ANDREY VALDEZ on 06/22/2020 at 16:43. [employer] Workstation ID: [id number] [facility] EXAMINATION: CT ABDO MEN PELVIS [...] seen directed medially within the central anterior lgf-ew-ddcue pelvis. No bowel obstruction. Some physiologic free fluid in the cul-de-sac. Some follicles seen in the ovaries bilaterally. The uterus and urinary bladder unremarkable. No acute osseous abnormality. [facility] Comprehensive Metabolic Pane kendra 06-22-2020 Albumin [Mass/Vol] 4.0 g/dL 3.2 - 5.2 g/dL [facility] ALP [Catalytic activity/Vol] 63 U/L 40 - 140 U/L [facility] ALT [Catalytic activity/Vol] 27 U/L 14 - 65 U/L [facility] Anion gap [Moles/Vol] 10 mmol/L 10 - 20 mmol/L [facility] AST [Catalytic activity/Vol] 18 U/L 0 - 45 U/L [facility] Bilirubin [Mass/Vol] 0.5 mg/dL 0 - 1.3 mg/dL [facility] Calcium [Mass/Vol] 9.1 mg/dL 8.4 - 10. 2 mg/dL [facility] Chloride [Moles/Vol] 109 mmol/L High 98 - 108 mmol/L [facility] Creatinine [Mass/Vol] 0.83 mg/dL 0.40 - 1.10 [facility] GFR/1.73 sq M predicted among non-blacks MDRD (S/P/Bld) [Vol rate/Area] The eGFR should be used for monitoring renal function only and not for medication dosing. [facility] GFR/1.73 sq M.predicted CKD-EPI (S/P/Bld) [Vol rate/Area] 98 >=60 mL/min/1.73 m2 [facility] Glucose [Mass/Vol] 96 mg/dL 65 - 99 mg/dL [facility] HCO3 [Moles/Vol] 25 mmol/L 21 - 32 mmol/L [facility] Potassium [Moles/Vol] 3.7 mmol/L 3.5 - 5.1 mmol/L [facility] Protein [Mass/Vol] 7.8 g/dL 6 - 8 g/dL [facility] alth Sodium [Moles/Vol] 140 mmol/L 135 - 145 mmol/L [facility] Urea nitrogen [Mass/Vol] 10 mg/dL 8 - 25 mg/dL [facility] Urea nitrogen/Creatinin e [Mass ratio] 12.0 mg/mg [facility] ECG 12-LEADon 06-22-2020 Andrey Valdez MD 2019 4:57 PM ECG 12 Lead Date/Time: 06/22/2020 4:51 PM Performed by: Andrey Valdez MD Authorized by: Andrey Valdez MD Interpreted by ED attending physician Comparison: not compared with previous ECG Rhythm: sinus rhythm BPM: 85 VT Interval: 108 QRS Interval: 82 QT Interval: 426 Clinical impression: non-specific ECG [facility] Lipaseon 06-22-2020 Lipase [Catalytic activity/Vol] 72 U/L Low 73 - 393 U/L [facility] Otheron 06-22-2020 Interpretation and review of laboratory results Abnormal [facility] URINALYSISon 06-22-2020 Bacteria Auto Ql (U) Few Abnormal None Seen /hpf [facility] Bilirubin Ql (U) Negative Negative [facility] th Clarity Refractometry automated (U) Cloudy Abnormal Clear [facility] Color (U) Yellow Colorless, Yellow [facility] Epithelial cells.squamous Auto (Urine sed) [#/Area] 3 [facility] Glucose Auto test strip (U) [Mass/Vol] Negative Negative mg/dL [facility] Hemoglobin Auto test strip Ql (U) Negative Negative [facility] Interpretation and review of laboratory results Abnormal [facility] Ketones (U) [Mass/Vol] 20 Abnormal Negative mg/dL [facility] Leukocyte esterase Auto test strip Ql (U) Negative Negative [facility] Nitrite Auto test strip Ql (U) Negative Negative [facility] pH (U) 7.0 [pH] [facility] Protein (U) [Mass/Vol] Negative Negative mg/dL [facility] Specific gravity (U) [Rel density] 1.020 [facility] Urobilinogen (U) [Mass/Vol] <2.0 <2.0 mg/dL [facility] WBC Auto (Urine sed) [#/Area] 2 [facility] Microscopic examinat ion is performed on all urinalysis samples and only positive findings are reported. The test for blood on the chemical analytic portion of urinalysis may also be positive due to hemoglobinuria and myoglobinuria and if red blood cells are present they are quantified by microscopic examination. [facility] Urine Pregnancyon 06-22-2020 HCG ( test) Ql (U) Negative Negative [facility] Interpretation and review of laboratory results Normal [facility] Vital Signs Date Time Vital Sign Value Performing Clinician Faci lity 07-08-2020 15:34-0500 BP Diastolic 79 mm[Hg] [facility] 07-08-2020 15:34-0500 BP Systolic 125 mm[Hg] [facility] 07-08-2020 15:34-0500 Pulse (Heart Rate) 81 /min [facility] 07-08-2020 15:34-0500 Pulse Oximetry 99 % [facility] 07-08-2020 15:34-0500 Respiratory Rate 16 /min [facility] 07-08-2020 13:50-0500 BMI (Body Mass Index) 20.36 kg/m2 [facility] 07-08-2020 13:50-0500 Body Temperature 98.49 [degF] [facility] 07-08-2020 13:50-0500 Body weight 58.97 kg [facility] 07-08-2020 13:50-0500 [facility] 06-[facility]2020 07:35-0500 Body Temperature 98.01 [degF] Andrey [facility] 06-23-2020 07:35-0500 BP Diastolic 68 mm[Hg] [facility] 06-23-2020 07:35-0500 BP Systolic 106 mm[Hg] [facility] 06-23-2020 07:35-0500 Pulse (Heart Rate) 75 /min [facility] 06-23-2020 07:35-0500 Pulse Oximetry 94 % [facility] 06-23-2020 07:35-0500 Respiratory Rate 16 /min [facility] 06-22-2020 14:15-0500 BMI (Body Mass Index) 20.36 kg/m2 [facility] 06-22-2020 14:15-0500 Body weight 58.97 kg [facility] 06-22-2020 14:15-0500 Height 170.2 cm [facility] Encounters Encounter Date Encounter Type Care Provider [...] End: 07-08-2020 Emergency department patient visit PHYSICIAN [facility] Start: 07-08-2020 End: 07-08-2020 Emergency department patient visit Kate Mendoza Work Phone: [facility] Emergency Department Comment on above: Abdominal pain, unsp ecified abdominal location (Primary Dx) Start: 06-22-2020 End: 06-23-2020 Patient encounter procedure PHYSICIAN [facility] Start: 06-22-2020 End: 06-23-2020 Emergency department patient visit Andrey Valdez Work Phone: [facility] Med Surg Comment on above: Acute [...] blood count with white cell differential, automated Attica Wu Work Phone: Start: 06-22-2020 Complete blood count with white cell differential, manual Attica Wu Work Phone: Start: 06-22-2020 Comprehensive metabolic [...] Se quential Influenza Vaccine (#1) [facility] Start: 2012 Hepatitis C antibody , confirmatory test Hepatitis C Screening [facility] Start: 2009 HIV screening HIV Screening [facility] Start: 2006 Adolescent depressio n screening assessment Depression Screening (PHQ9) [facility] Start: 2005 Vaccination for tri n papillomavirus HPV Vaccines (1 - 2-dose series) [facility] Start: 1997 History and physical examination, annual for health maintenance Wellness Visit [facility] Start: 1994 Screening for malign ant neoplasm of cervix Pap Smear [facility] Start: 1994 Tetanus vaccination Tetanus: Every 1 0yrs [facility] Procedure on tissue specimen Tis kyara Exam Pathology and Cytology STAT Release Upon Ordering for 1 Occurrences starting 06/22/2020 [facility] Comment on above: Release Upon Orderin g for 1 Occurrences starting 06/22/2020 Payers Date Payer Category Payer Unknown [employer] PPO [id number] 2019-Present [id number] 2019 Unknown [id number] 1994 Unknown [id number] 2..[id number] 1994 Unknown [id number] [id number] 1994 Unknown [id number] 2.16.840.1.074807.3.579.2.593 1994 Unknown [id number] 2.16.840.1.805770.3.579.2.593 1994 Unknown [id number] 2.16.840.1.522609.3.579.2.593 1994 Unknown [id number] 2.16.840.1.196236.3.579.2.593 1994 Unknown [id number] 2.16.840.1.004473.3.579.2.9 1994 Unknown [id number] 2.16.840.1.693233.3.579.2.9 1994 Unknown [id number] 2.16.840.1.840480.3.579.2.9 1994 Unknown [id number] 2.16.840.1.628776.3.579.2.1258 1994 Unknown [id number] 2.16.840.1.629349.3.579.2.9 1994 Unknown [id number] 2.16.840.1.867884.3.579.2.1258 1994 Unknown [id number] 2.16.840.1.767878.3.579.2.1258 1994 Unknown [id number] 2.16.840.1.683428.3.579.2.1258 1994 Unknown [id number] 2.16.840.1.740195.3.579.2.9 1994 Unknown [id number] 2.16.840.1.177353.3.579.2.1258 1994 Unknown [id number] 2.16.840.1.759415.3.579.2.1259 1959 Unknown [id number] Social History Date Type Detail Facility Start: 06-23-2020 End: 07-08-2020 Tobacco smoking status NHIS Never smoker [facility] Start: 06-23-2020 End: 07-08-2020 Tobacco use and exposure Never used [facility] Start: 06-23-2020 End: 07-08-2020 Alcohol intake Ex-drinker (finding) [facility] Sex Assigned At Not on file [facility] Exposure to SARS-CoV-2 (event) Not sure [facility] Discharge Instructions * Instructions* Magdi Salazar MD - 06/23/[address] Salazar (Hernia Repair/Gallbladder) [phone] No Lifting, no bending, no pushing May [...] A MEDICAL NATURE, CALL YOUR DOCTOR/EMERGENCY ROOM. [facility] EMERGENCY ROOM [phone] Make a follow-up appointment with your surgeon. Post Operative Instructions Dr Salazar (Hernia Repair/Gallbladder) [phone] No Lifting, no bending, no pushing May [...] A MEDICAL NATURE, CALL YOUR DOCTOR/EMERGENCY ROOM. [facility] EMERGENCY ROOM [phone] Make a follow-up appointment with your surgeon. documented in this encounter* Attachments The following attachments cannot be sent through Care Everywhere. * Abdominal Pain (Beninese) documented in this encounter Assessments Diagnosis Acute appendicitis with localized peritonitis, without perforation, abscess, or gangrene- Primary Diagnosis Abdominal pain, unspecified abdominal location- Primary Advance Directives No Advanced Directives Records FoundDocuments on File Type Date Recorded Patient Implant Polisher Expl anation Advance Directives and Livin g Will 06/22/2020 1:08 PM Documents on File Type Date Recorded Patient Implant Polisher Expl anation Advance Directives and Livin g [...] and content) Patient's name Mele Thompson, STELLA #[id number] Age [age] years old date of 1995 [...] ED Notes (unrecognized secti on and content) [facility] ED Attending Note: NAME: Mele Thompson 24 y.o. 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 Patient is to be kept n.p.o. He would like 3.375 of Zosyn given to the patient. He would like the patient admitted to his service. Clinical Impression: 1. Acute appendicitis with localized peritonitis, without perforation, abscess, or gangrene Disposition: hospitalize to Operating Room Andrey Valdez M.D. Attending Physician [facility] Emergency Departments 06/22/2020 Portions of this [...] lobby. Pt alert, oriented and stable at in. ED PROVIDER NOTE [facility] EMERGENCY DEPARTMENT NAME: Mele Thompson AGE: 24 y.o. : 1995 VISIT DATE: 07/08/2020 CSN: [id number] PCP: Physician No Chief Complaint Patient presents [...] Colorless, Yellow Clarity, Urine Clear Clear Specific [place] 1.020 1.005 - 1.025 pH, Urine 7.5 [...] Magdi Salazar MD. Specialty: General Surgery [facility] [id number] Contact information for after-discharge care Follow-up information [...] change in drainage on op-sites. MELE THOMPSON [facility] [id number] [facility] [id number] 1995 DATE 06/22/2020 OPERATIVE REPORT SURGEON MAGDI [...] utilizing 0 Ethibond with an open technique. Eobwbz-un-zboft suture was placed after complete desufflation of [...] appendicitis. MAGDI SALAZAR MD D 06/22/2020 20:33 [id number] T 06/23/2020 01:38 VMT/MODL Umbilical dressing saturated with light pink serous drainage.Pubic dressing 1/2 saturated with shadow of pink drainage. Brief Post Operative Note Patient Name: Mele Thompson : 1995 (24 y.o.) Date of Service: 06/22/2020 CSN: [id number] Procedure(s): APPENDECTOMY LAPAROSCOPIC Pre-Operative Diagnoses: RIGHT SIDED ABDOMINAL PAIN - ACUTE APPENDICITIS Post-Operative Diagnoses: ACUTE RETROCECAL APPENDICITIS Surgeon(s) and Role: * Magdi Salazar MD - Primary Anesthesiologist: Jaylin Buckley MD Image Assembler: Tanisha Varghese RN Scrub Person Assist: Jadyn [...] previous ECG Rhythm: sinus rhythm BPM: 85 VT Interval: 108 QRS Interval: 82 QT Interval: 426 Clinical impression: non-specific ECG documented in this encounter INFORMATION SOURCE (unrecogn ized section and content) DATE CREATED AUTHOR 07/13/2020 [facility] DATE CREATED AUTHOR AUTHOR'S ORGANIZ ATION 01/28/2023 [facility] DATE CREATED AUTHOR AUTHOR'S ORGANIZ ATION 05/24/2024 [facility] FOR RECORDS PERTAINING TO PATIENTS WHO [...] BE BASED ON THE PRIMARY CLINICAL RECORDS. [facility] provides no warranty or guarantee of the accuracy or completeness of information in this document.
[2024-05-25 12:07] VITALS: BP 133/75; PULSE 118
== END 2024-05-25 12:40 | disposition home or self-care (01) ==
LOC: FBCO 07:07 → FBC 11:59
PROVIDERS: PCP Obstetrics & Gynecology; Visit Provider Obstetrics & Gynecology
DX: O43.893 Other placental disorders, third trimester (principal); Z3A.38 38 weeks gestation of pregnancy
CPT/HCPCS: 59025

== ENCOUNTER 2024-05-29 07:04 | Outpatient (OUT) | payer BC, SELFPAY ==
--- NOTE | 2024-05-29 | US_ITS ---
[address] [address] Patient Name: MELE DOLL MRN: [id number] date: 1995 Sex: F Assigned Patient Location: US Current Patient Location: Accession/Order Number: [id number] Exam Date: 05/29/2024 13:03 Report Date: 05/29/2024 15:59 At the request of: CIERA KAUFFMAN Procedure: US OB BPP w non-stress EXAMINATION: US OB BPP w non-stress HISTORY:History of placenta previa Z87.59 COMPARISON: Ultrasound OB biophysical 05/22/2024 TECHNIQUE: Ultrasound biophysical profile was performed in the radiology department. BREATHING MOVEMENTS: 2 GROSS BODY MOVEMENTS: 2 TONE: 2 QUALITATIVE AMNIOTIC FLUID VOLUME: 2 PRESENTATION: CEPHALIC HEART RATE: 126.17 bpm AMNIOTIC FLUID VOLUME: 13.02 cm GESTATIONAL AGE: 39 weeks 1 day US/US OB BPP w non-stress IMPRESSION: Total biophysical profile score: 8 Electronically authenticated by: EMERSON DOUGLASS Date: 05/29/2024 15:59
--- OUTSIDE RECORDS SUMMARY | 2024-05-29 07:07 | XMS_ITS | CCD ---
Author Organization [facility] Care Team Providers Care Clinical Mental Health Counselor Name Role Phone No, Physician Primary Care [...] HCG QUANT 67 mIU/mL Normal [facility] Comment on above: Performed By: #### P REGQNT #### [facility] [address] [place] [address] Dr. Tammi Fleming HCG RANGE SEE BELOW Normal [facility] Comment on above: Result Comment: 5-50 0.2-1 WEEK 50-500 1-2 WEEKS 100-5,000 2-3 WEEKS 500-10,000 3-4 WEEKS 1,000-50,000 4-5 WEEKS 10,000-100,000 5-6 WEEKS 15,000-200,000 6-8 WEEKS 10,000-100,000 2-3 MONTHS Performed By: #### P REGQNT #### [facility] [address] [place] [address] Dr. Tammi Fleming PREG QUANT HCGon 01-10-2023 HCG QUANT 231 mIU/mL Normal [facility] Comment on above: Performed By: #### P REGQNT #### [facility] [address] [place] [address] Dr. Tammi Fleming HCG RANGE SEE BELOW Normal [facility] Comment on above: Result Comment: 5-50 0.2-1 WEEK 50-500 1-2 WEEKS 100-5,000 2-3 WEEKS 500-10,000 3-4 WEEKS 1,000-50,000 4-5 WEEKS 10,000-100,000 5-6 WEEKS 15,000-200,000 6-8 WEEKS 10,000-100,000 2-3 MONTHS Performed By: #### P REGQNT #### [facility] [address] [place] [address] Dr. Tammi Fleming CBC AUTO DIFFon 01-04-2023 BASO # 0.0 103/ul Normal 0.0-0.1 [facility] Comment on above: Performed By: #### C BC #### [facility] [address] [place] [address] Dr. Tammi Fleming Basophils/100 WBC (Bld) 0.3 % Normal 0.2-2.0 [facility] Comment on above: Performed By: #### C BC #### [facility] [address] [place] [address] Dr. Tammi Fleming EO # 0.1 103/ul Normal 0.0-0.7 [facility] Comment on above: Performed By: #### C BC #### [facility] [address] [place] [address] Dr. Tammi Fleming Eosinophils/100 WBC (Bld) 0.8 % Critically low 0.9-7.0 [facility] Comment on above: Performed By: #### C BC #### [facility] [address] [place] [address] Dr. Tammi Fleming Erythrocyte distribution width (RBC) [Ratio] 12.0 % Normal 11.0-15.0 [facility] Comment on above: Performed By: #### C BC #### [facility] [address] [place] [address] Dr. Tammi Fleming Hematocrit (Bld) [Volume fraction] 42.6 % Normal 36.0-48.0 [facility] Comment on above: Performed By: #### C BC #### [facility] [address] [place] [address] Dr. Tammi Fleming Hemoglobin (Bld) [Mass/Vol] 14.5 g/dL Normal 12.0-16.0 [facility] Comment on above: Performed By: #### C BC #### [facility] [address] [place] [address] Dr. Tammi Fleming IG # 0.02 10e3/ul Normal 0.00-0.03 [facility] Comment on above: Performed By: #### C BC #### [facility] [address] [place] [address] Dr. Tammi Fleming IG % 0.3 % Normal 0.0-0.5 [facility] Comment on above: Performed By: #### C BC #### [facility] [address] [place] [address] Dr. Tammi Fleming LYMPH # 1.6 103/ul Normal 1.2-3.8 [facility] Comment on above: Performed By: #### C BC #### [facility] [address] [place] [address] Dr. Tammi Fleming Lymphocytes/100 WBC (Bld) 19.9 % Critically low 20.5-60.0 [facility] Comment on above: Performed By: #### C BC #### [facility] [address] [place] [address] Dr. Tammi Fleming MANUAL DIFF REQ NO Normal [facility] Comment on above: Performed By: #### C BC #### [facility] [address] [place] [address] Dr. Tammi Fleming MCH (RBC) [Entitic mass] 29.8 pg Normal 26.7-34.0 [facility] Comment on above: Performed By: #### C BC #### [facility] [address] [place] [address] Dr. Tammi Fleming MCHC (RBC) [Mass/Vol] 34.0 g/dL Normal 29.9-35.2 [facility] Comment on above: Performed By: #### C BC #### [facility] [address] [place] [address] Dr. Tammi Fleming MCV (RBC) [Entitic vol] 87.7 fL Normal 81.0-99.0 [facility] Comment on above: Performed By: #### C BC #### [facility] [address] [place] [address] Dr. Tammi Fleming MONO # 0.4 103/ul Normal 0.3-0.8 [facility] Comment on above: Performed By: #### C BC #### [facility] [address] [place] [address] Dr. Tammi Fleming Monocytes/100 WBC (Bld) 5.0 % Normal 1.7-12.0 [facility] Comment on above: Performed By: #### C BC #### [facility] [address] [place] [address] Dr. Tammi Fleming NEUT # 5.8 103/ul Normal 1.4-6.5 [facility] Comment on above: Performed By: #### C BC #### [facility] [address] [place] [address] Dr. Tammi Fleming Neutrophils/100 WBC (Bld) 73.7 % Normal 43.0-75.0 [facility] Comment on above: Performed By: #### C BC #### [facility] [address] [place] [address] Dr. Tammi Fleming Platelet mean volume (Bld) [Entitic vol] 12.1 fL Normal 9.5-13.5 [facility] Comment on above: Performed By: #### C BC #### [facility] [address] [place] [address] Dr. Tammi Fleming PLT 184 103/ul Normal 150-450 [facility] Comment on above: Performed By: #### C BC #### [facility] [address] [place] [address] Dr. Tammi Fleming RBC 4.86 106/ul Normal 4.20-5.40 [facility] Comment on above: Performed By: #### C BC #### [facility] [address] [place] [address] Dr. Tammi Fleming WBC 7.9 103/ul Normal 4.0-11.0 [facility] Comment on above: Performed By: #### C BC #### [facility] [address] [place] [address] Dr. Tammi Fleming ER URINE PROFILEon 3 Bilirubin Ql (U) Negative Normal NEGATIVE [facility] Comment on above: Performed By: #### E RUR, UMICRO #### [facility] [address] [place] [address] Dr. Tammi Fleming Clarity (U) CLEAR Normal CLEAR [facility] Comment on above: Performed By: #### E RUR, UMICRO #### [facility] [address] [place] [address] Dr. Tammi Fleming Color (U) LT. YELLOW Normal YELLOW [facility] Comment on above: Performed By: #### E RUR, UMICRO #### [facility] [address] [place] [address] Dr. Tammi Fleming ERUKATIED A micrscopic examina tion will be performed if indicated. Normal [facility] Comment on above: Performed By: #### Angela RUR, UMICRO #### [facility] [address] [place] [address] Dr. Tammi Fleming Glucose Ql (U) Negative Normal NEGATIVE [facility] Comment on above: Performed By: #### E RUR, UMICRO #### [facility] [address] [place] [address] Dr. Tammi Fleming Hemoglobin Ql (U) LARGE Abnormal NEGATIVE [facility] Comment on above: Performed By: #### E RUR, UMICRO #### [facility] [address] [place] [address] Dr. Tammi Fleming Ketones Ql (U) Negative Normal NEGATIVE [facility] Comment on above: Performed By: #### E RUR, UMICRO #### [facility] [address] [place] [address] Dr. Tammi Fleming LEUKOCYTES Negative Normal NEGATIVE [facility] Comment on above: Performed By: #### CIRILO SORTO #### [facility] [address] [place] [address] Dr. Tammi Fleming Nitrite Ql (U) Negative Normal NEGATIVE [facility] Comment on above: Performed By: #### CIRILO SORTO #### [facility] [address] [place] [address] Dr. Tammi Fleming pH (U) 7.0 [pH] Normal 5-9 [facility] Comment on above: Performed By: #### CIRILO SORTO #### [facility] [address] [place] [address] Dr. Tammi Fleming SPEC GRAVITY <=1.005 Abnormal 1.005-<=1.025 [facility] Comment on above: Performed By: #### CIRILO SORTO #### [facility] [address] [place] [address] Dr. Tammi Fleming UA PROTEIN Negative Normal NEGATIVE/ TRACE [facility] Comment on above: Performed By: #### CIRILO SORTO #### [facility] [address] [place] [address] Dr. Tammi Fleming UR MICRO IND INDICATED Normal [facility] Comment on above: Performed By: #### CIRILO SORTO #### [facility] [address] [place] [address] Dr. Tammi Fleming Urobilinogen Qn (U) 0.2 {Elder'U}/dL Normal 0.2 - 1.0 [facility] Comment on above: Performed By: #### CIRILO SORTO #### [facility] [address] [place] [address] Dr. Tammi Fleming PREG QUANT HCGon 01-04-2023 HCG QUANT 4523 mIU/mL Normal [facility] Comment on above: Performed By: #### P REGQNT #### [facility] [address] [place] [address] Dr. Tammi Fleming HCG RANGE SEE BELOW Normal [facility] Comment on above: Result Comment: 5-50 0.2-1 WEEK 50-500 1-2 WEEKS 100-5,000 2-3 WEEKS 500-10,000 3-4 WEEKS 1,000-50,000 4-5 WEEKS 10,000-100,000 5-6 WEEKS 15,000-200,000 6-8 WEEKS 10,000-100,000 2-3 MONTHS Performed By: #### P REGQNT #### [facility] [address] [place] [address] Dr. Tammi Fleming URINE MICROSCOPIC ONLYon BACTERIA TRACE Abnormal NONE SEEN [facility] Comment on above: Performed By: #### Angela CHRISTIE UMICRO #### [facility] [address] [place] [address] Dr. Tammi Fleming Bacteria identified Cx Nom (U) NOT INDICATED Normal [facility] Comment on above: Performed By: #### Angela CHRISTIE UMICRO #### [facility] [address] [place] [address] Dr. Tammi Fleming CAST NONE SEEN Normal NONE SEEN [facility] Comment on above: Performed By: #### Angela CHRISTIE UMICRO #### [facility] [address] [place] [address] Dr. Tammi Fleming Crystals LM Nom (Urine sed) NONE SEEN Normal NONE SEEN [facility] Comment on above: Performed By: #### Angela CHRISTIE UMICRO #### [facility] [address] [place] [address] Dr. Tammi Fleming Epithelial cells LM Ql (Urine sed) NONE SEEN Normal NONE SEEN /RARE [facility] Comment on above: Performed By: #### Angela CHRISTIE UMICRO #### [facility] [address] [place] [address] Dr. Tammi Fleming MUCOUS NONE SEEN Normal NONE SEEN [facility] Comment on above: Performed By: #### Angela CHRISTIE UMICRO #### [facility] [address] [place] [address] Dr. Tammi Fleming RBC 2-5 Abnormal 0-2 [facility] Comment on above: Performed By: #### E CIRILO CHRISTIE #### [facility] [address], [place] [address] Dr. Tammi Fleming WBC NONE SEEN Normal NONE SEEN [facility] Comment on above: Performed By: #### E CIRILO CHRISTIE #### [facility] [address], [place] [address] Dr. Tammi Fleming US PREG TVon 01-04-2023 [...] DEYVI FELDER Date: 2023-01-04 18:08 Normal [facility] BMPon 07-08-2020 Anion gap [Moles/Vol] 11 mmol/L 10 - 20 mmol/L [facility] Calcium [Mass/Vol] 9.5 mg/dL 8.4 - 10. 2 mg/dL [facility] Chloride [Moles/Vol] 109 mmol/L High 98 - 108 mmol/L [facility] Creatinine [Mass/Vol] 0.85 mg/dL 0.40 - 1.10 [facility] GFR/1.73 sq M predicted among non-blacks MDRD (S/P/Bld) [Vol rate/Area] The eGFR should be used for monitoring renal function only and not for medication dosing. [facility] GFR/1.73 sq M.predicted CKD-EPI (S/P/Bld) [Vol rate/Area] 96 >=60 mL/min/1.[address] [facility] Glucose [Mass/Vol] 95 mg/dL 65 - 99 mg/dL [facility] HCO3 [Moles/Vol] 23 mmol/L 21 - 32 mmol/L [facility] Interpretation and review of laboratory results Abnormal [facility] Potassium [Moles/Vol] 3.5 mmol/L 3.5 - 5.1 mmol/L [facility] Sodium [Moles/Vol] 139 mmol/L 135 - 145 mmol/L [facility] Urea nitrogen [Mass/Vol] 10 mg/dL 8 - 25 mg/dL [facility] Urea nitrogen/Creatinin e [Mass ratio] 11.8 mg/mg [facility] CBC WITH AUTO DIFFERENTIALon 07-08-2020 Basophils (Bld) [#/Vol] 0.02 10*3/uL [facility] Basophils/100 WBC (Bld) 0.2 % [facility] Eosinophils (Bld) [#/Vol] 0.04 10*3/uL [facility] Eosinophils/100 WBC (Bld) 0.5 % [facility] Erythrocyte distribution width (RBC) [Entitic vol] 12.0 % 11.6 - 14.8 % [facility] Hematocrit (Bld) [Volume fraction] 43.3 % 36 - 46 % [facility] Hemoglobin (Bld) [Mass/Vol] 14.7 g/dL 12 - 16 g/dL [facility] Immature granulocytes (Bld) [#/Vol] 0.00 10*3/uL [facility] Immature granulocytes/100 WBC (Bld) 0.00 % [facility] Comment on above: The IG parameter is the percentage of metamyelocytes, myelocytes and promyelocytes. An immature granulocyte count (IG) of 1% or more suggests the possibility of infection, an IG count of 3% is very likely related to an infection. Lymphocytes (Bld) [#/Vol] 2.44 10*3/uL [facility] Lymphocytes/100 WBC (Bld) 30.2 % [facility] MCH (RBC) [Entitic mass] 29.2 pg 26 - [address] [facility] MCHC (RBC) [Mass/Vol] 33.9 g/dL 31 - 37 g/dL [facility] MCV (RBC) [Entitic vol] 86.1 fL 80 - [address] [facility] Monocytes (Bld) [#/Vol] 0.40 10*3/uL [facility] Monocytes/100 WBC (Bld) 5.0 % [facility] Neutrophils (Bld) [#/Vol] 5.17 10*3/uL [facility] Neutrophils/100 WBC (Bld) 64.1 % [facility] Platelet mean volume (Bld) [Entitic vol] 11.8 fL 9.4 - 12.[address] [facility] Platelets (Bld) [#/Vol] 228 10*3/uL [facility] RBC (Bld) [#/Vol] 5.03 10*6/uL [facility] WBC (Bld) [#/Vol] 8.07 10*3/uL [facility] ABDOMEN PELVIS WITH IV CO [...] changes from recent appendectomy. Workstation ID: [id number] [facility] EXAMINATION: CT ABDO MEN PELVIS WITH IV [...] No acute or aggressive osseous abnormality identified. [facility] 1. No acute infectio us, inflammatory or obstructive process identified in the abdomen or pelvis. 2. Postsurgical changes from recent appendectomy. Workstation ID: [id number] [facility] Hepatic Function Panel (LFT) on 07-08-2020 Albumin [Mass/Vol] 3.8 g/dL 3.2 - 5.2 g/dL [facility] ALP [Catalytic activity/Vol] 71 U/L 40 - 140 U/L [facility] ALT [Catalytic activity/Vol] 31 U/L 14 - 65 U/L [facility] AST [Catalytic activity/Vol] 18 U/L 0 - 45 U/L [facility] Bilirubin [Mass/Vol] 0.3 mg/dL 0 - 1.3 mg/dL [facility] Bilirubin.conjugat ed [Mass/Vol] mg/dL 0 - 0.4 mg/dL [facility] Protein [Mass/Vol] 7.9 g/dL 6 - 8 g/dL [facility] alth Lipaseon 07-08-2020 Lipase [Catalytic activity/Vol] 95 U/L 73 - 393 U/L [facility] Otheron 07-08-2020 Interpretation and review of laboratory results Normal [facility] Extra Tube Hold for add-ons. [facility] Comment on above: Auto resulted. URINALYSISon 07-08-2020 Bacteria Auto Ql (U) Rare Abnormal None Seen /hpf [facility] Bilirubin Ql (U) Negative Negative [facility] Clarity Refractometry automated (U) Clear Clear [facility] Color (U) Yellow Colorless, Yellow [facility] Epithelial cells.squamous Auto (Urine sed) [#/Area] 1 [facility] Glucose Auto test strip (U) [Mass/Vol] Negative Negative mg/dL [facility] Hemoglobin Auto test strip Ql (U) Negative Negative [facility] Interpretation and review of laboratory results Abnormal [facility] Ketones (U) [Mass/Vol] Negative Negative mg/dL [facility] Leukocyte esterase Auto test strip Ql (U) Negative Negative [facility] Nitrite Auto test strip Ql (U) Negative Negative [facility] pH (U) 7.5 [pH] High [facility] Protein (U) [Mass/Vol] Negative Negative mg/dL [facility] Specific gravity (U) [Rel density] 1.020 [facility] Urobilinogen (U) [Mass/Vol] <2.0 <2.0 mg/dL [facility] Microscopic examinat ion is performed on all urinalysis samples and only positive findings are reported. The test for blood on the chemical analytic portion of urinalysis may also be positive due to hemoglobinuria and myoglobinuria and if red blood cells are present they are quantified by microscopic examination. [facility] Urine Pregnancyon 07-08-2020 HCG ( test) Ql (U) Negative Negative [facility] Interpretation and review of laboratory results Normal [facility] CBC WITH AUTO DIFFERENTIALon 06-23-2020 Basophils (Bld) [#/Vol] 0.00 10*3/uL [facility] Basophils/100 WBC (Bld) 0.0 % [facility] Eosinophils (Bld) [#/Vol] 0.00 10*3/uL [facility] Eosinophils/100 WBC (Bld) 0.0 % [facility] Erythrocyte distribution width (RBC) [Entitic vol] 12.2 % 11.6 - 14.8 % [facility] Hematocrit (Bld) [Volume fraction] 37.2 % 36 - 46 % [facility] Hemoglobin (Bld) [Mass/Vol] 12.6 g/dL 12 - 16 g/dL [facility] Immature granulocytes (Bld) [#/Vol] 0.01 10*3/uL [facility] Immature granulocytes/100 WBC (Bld) 0.10 % [facility] Comment on above: The IG parameter is the percentage of metamyelocytes, myelocytes and promyelocytes. An immature granulocyte count (IG) of 1% or more suggests the possibility of infection, an IG count of 3% is very likely related to an infection. Interpretation and review of laboratory results Abnormal [facility] Lymphocytes (Bld) [#/Vol] 0.82 10*3/uL Low [facility] Lymphocytes/100 WBC (Bld) 6.8 % [facility] MCH (RBC) [Entitic mass] 29.3 pg 26 - [address] [facility] MCHC (RBC) [Mass/Vol] 33.9 g/dL 31 - 37 g/dL [facility] MCV (RBC) [Entitic vol] 86.5 fL 80 - [address] [facility] Monocytes (Bld) [#/Vol] 0.31 10*3/uL [facility] Monocytes/100 WBC (Bld) 2.6 % [facility] Neutrophils (Bld) [#/Vol] 10.86 10*3/uL High [facility] Neutrophils/100 WBC (Bld) 90.5 % [facility] Platelet mean volume (Bld) [Entitic vol] 12.1 fL 9.4 - 12.[address] [facility] Platelets (Bld) [#/Vol] 197 10*3/uL [facility] RBC (Bld) [#/Vol] 4.30 10*6/uL [facility] WBC (Bld) [#/Vol] 12.00 10*3/uL [facility] CBC WITH AUTO DIFFERENTIALon 06-22-2020 Basophils (Bld) [#/Vol] 0.02 10*3/uL [facility] Basophils/100 WBC (Bld) 0.1 % [facility] Eosinophils (Bld) [#/Vol] 0.00 10*3/uL [facility] Eosinophils/100 WBC (Bld) 0.0 % [facility] Erythrocyte distribution width (RBC) [Entitic vol] 12.0 % 11.6 - 14.8 % [facility] Hematocrit (Bld) [Volume fraction] 40.2 % 36 - 46 % [facility] Hemoglobin (Bld) [Mass/Vol] 14.0 g/dL 12 - 16 g/dL [facility] Immature granulocytes (Bld) [#/Vol] 0.02 10*3/uL [facility] Immature granulocytes/100 WBC (Bld) 0.10 % [facility] Comment on above: The IG parameter is the percentage of metamyelocytes, myelocytes and promyelocytes. An immature granulocyte count (IG) of 1% or more suggests the possibility of infection, an IG count of 3% is very likely related to an infection. Interpretation and review of laboratory results Abnormal [facility] Lymphocytes (Bld) [#/Vol] 1.20 10*3/uL [facility] Lymphocytes/100 WBC (Bld) 5.9 % [facility] MCH (RBC) [Entitic mass] 29.4 pg 26 - [address] [facility] MCHC (RBC) [Mass/Vol] 34.8 g/dL 31 - 37 g/dL [facility] MCV (RBC) [Entitic vol] 84.5 fL 80 - [address] [facility] Monocytes (Bld) [#/Vol] 0.67 10*3/uL [facility] Monocytes/100 WBC (Bld) 3.3 % [facility] Neutrophils (Bld) [#/Vol] 18.51 10*3/uL [facility] Neutrophils/100 WBC (Bld) 90.6 % [facility] Platelet mean volume (Bld) [Entitic vol] 11.7 fL 9.4 - 12.[address] [facility] Platelets (Bld) [#/Vol] 223 10*3/uL [facility] RBC (Bld) [#/Vol] 4.76 10*6/uL [facility] WBC (Bld) [#/Vol] 20.42 10*3/uL [facility] COVID-19, MOLECULARon 2019 SARS-COV-2 (BERG ID) Not Detected Normal Not Detected [facility] Comment on above: Result Comment: This test was performed under the FDA's Emergency Use Authorization (EUA). Testing was performed using the [employer] ID NOW COVID-19 assay on the ID NOW platform. This test has not been approved for use in asymptomatic patients and its performance in this patient population has not been evaluated. Negative results do not rule out the presence of SARS-CoV-2/COVID-19. Fact sheets for the EUA can be found at the following links: For Healthcare Providers: https://www.fda.gov/media/837791/download For Patients: https://www.fda.gov/media/144543/download Performed By: #### L [id number] #### SH [address] [address] Kenneth Arrieta M.D. [id number] COVID-19, Molecularon 2019 Interpretation and review of laboratory results Normal [facility] SARS-CoV-[address]ed [facility] Comment on above: This test was perfor [...] at the following links: For Healthcare Providers: https://www.fda.gov/media/414663/download For Patients: https://www.fda.gov/media/382529/download CT ABDOMEN PELVIS WITH IV CO NTRAST [...] seen directed medially within the central anterior [id number] pelvis. No bowel obstruction. Some physiologic free [...] is directed medially within the central anterior axq-nd-truue pelvis with no bowel obstruction. 3. Some [...] seen directed medially within the central anterior khn-ct-exjow pelvis. No bowel obstruction. Some physiologic free [...] is directed medially within the central anterior [id number]-rhktd pelvis with no bowel obstruction. 3. Some physiologic free fluid in the cul-de-sac. Some small follicles seen in the ovaries bilaterally. Results were called by Dr. Clifford Wilson to Dr. ANDREY VALDEZ on 06/22/2020 at 16:43. GJT/[id number] Workstation ID: [id number] [facility] 1. Acute appendiciti s. The appendix is seen just anterior to the right common iliac artery and is distended approaching 9 mm with wall enhancement and surrounding fatty stranding. 2. Moderate amount of fecal matter in the proximal colon. The cecum is directed medially within the central anterior [id number] pelvis with no bowel obstruction. 3. Some physiologic free fluid in the cul-de-sac. Some small follicles seen in the ovaries bilaterally. Results were called by Dr. Clifford Wilson to Dr. ANDREY VALDEZ on 06/22/2020 at 16:43. [employer] Workstation ID: [id number] [facility] EXAMINATION: CT ABDO MEN PELVIS WITH IV [...] seen directed medially within the central anterior [id number] pelvis. No bowel obstruction. Some physiologic free fluid in the cul-de-sac. Some follicles seen in the ovaries bilaterally. The uterus and urinary bladder unremarkable. No acute osseous abnormality. [facility] Comprehensive Metabolic Pane kendra 06-22-2020 Albumin [Mass/Vol] 4.0 g/dL 3.2 - 5.2 g/dL [facility] ALP [Catalytic activity/Vol] 63 U/L 40 - 140 U/L [facility] ALT [Catalytic activity/Vol] 27 U/L 14 - 65 U/L [facility] Anion gap [Moles/Vol] 10 mmol/L 10 - 20 mmol/L [facility] AST [Catalytic activity/Vol] 18 U/L 0 - 45 U/L [facility] Bilirubin [Mass/Vol] 0.5 mg/dL 0 - 1.3 mg/dL [facility] Calcium [Mass/Vol] 9.1 mg/dL 8.4 - 10. 2 mg/dL [facility] Chloride [Moles/Vol] 109 mmol/L High 98 - 108 mmol/L [facility] Creatinine [Mass/Vol] 0.83 mg/dL 0.40 - 1.10 [facility] GFR/1.73 sq M predicted among non-blacks MDRD (S/P/Bld) [Vol rate/Area] The eGFR should be used for monitoring renal function only and not for medication dosing. [facility] GFR/1.73 sq M.predicted CKD-EPI (S/P/Bld) [Vol rate/Area] 98 >=60 mL/min/1.[address] [facility] Glucose [Mass/Vol] 96 mg/dL 65 - 99 mg/dL [facility] HCO3 [Moles/Vol] 25 mmol/L 21 - 32 mmol/L [facility] Potassium [Moles/Vol] 3.7 mmol/L 3.5 - 5.1 mmol/L [facility] Protein [Mass/Vol] 7.8 g/dL 6 - 8 g/dL [facility] alth Sodium [Moles/Vol] 140 mmol/L 135 - 145 mmol/L [facility] Urea nitrogen [Mass/Vol] 10 mg/dL 8 - 25 mg/dL [facility] Urea nitrogen/Creatinin e [Mass ratio] 12.0 mg/mg [facility] ECG 12-LEADon 06-22-2020 Andrey Valdez MD 2019 4:57 PM ECG 12 Lead Date/Time: 06/22/2020 4:51 PM Performed by: Andrey Valdez MD Authorized by: Andrey Valdez MD Interpreted by ED attending physician Comparison: not compared with previous ECG Rhythm: sinus rhythm BPM: 85 PA Interval: 108 QRS Interval: 82 QT Interval: 426 Clinical impression: non-specific ECG [facility] Lipaseon 06-22-2020 Lipase [Catalytic activity/Vol] 72 U/L Low 73 - 393 U/L [facility] Otheron 06-22-2020 Interpretation and review of laboratory results Abnormal [facility] URINALYSISon 06-22-2020 Bacteria Auto Ql (U) Few Abnormal None Seen /hpf [facility] Bilirubin Ql (U) Negative Negative [facility] th Clarity Refractometry automated (U) Cloudy Abnormal Clear [facility] Color (U) Yellow Colorless, Yellow [facility] Epithelial cells.squamous Auto (Urine sed) [#/Area] 3 [facility] Glucose Auto test strip (U) [Mass/Vol] Negative Negative mg/dL [facility] Hemoglobin Auto test strip Ql (U) Negative Negative [facility] Interpretation and review of laboratory results Abnormal [facility] Ketones (U) [Mass/Vol] 20 Abnormal Negative mg/dL [facility] Leukocyte esterase Auto test strip Ql (U) Negative Negative [facility] Nitrite Auto test strip Ql (U) Negative Negative [facility] pH (U) 7.0 [pH] [facility] Protein (U) [Mass/Vol] Negative Negative mg/dL [facility] Specific gravity (U) [Rel density] 1.020 [facility] Urobilinogen (U) [Mass/Vol] <2.0 <2.0 mg/dL [facility] WBC Auto (Urine sed) [#/Area] 2 [facility] Microscopic examinat ion is performed on all urinalysis samples and only positive findings are reported. The test for blood on the chemical analytic portion of urinalysis may also be positive due to hemoglobinuria and myoglobinuria and if red blood cells are present they are quantified by microscopic examination. [facility] Urine Pregnancyon 06-22-2020 HCG ( test) Ql (U) Negative Negative [facility] Interpretation and review of laboratory results Normal [facility] Vital Signs Date Time Vital Sign Value Performing Clinician Faci lity 07-08-2020 15:34-0500 BP Diastolic 79 mm[Hg] [facility] 07-08-2020 15:34-0500 BP Systolic 125 mm[Hg] [facility] 07-08-2020 15:34-0500 Pulse (Heart Rate) 81 /min [facility] 07-08-2020 15:34-0500 Pulse Oximetry 99 % [facility] 07-08-2020 15:34-0500 Respiratory Rate 16 /min [facility] 07-08-2020 13:50-0500 BMI (Body Mass Index) 20.36 kg/m2 [facility] 07-08-2020 13:50-0500 Body Temperature 98.49 [degF] [facility] 07-08-2020 13:50-0500 Body weight 58.97 kg [facility] 07-08-2020 13:50-0500 [facility] 06-[facility]-2020 07:35-0500 Body Temperature 98.01 [degF] Andrey [facility] 06-23-2020 07:35-0500 BP Diastolic 68 mm[Hg] [facility] 06-23-2020 07:35-0500 BP Systolic 106 mm[Hg] [facility] 06-23-2020 07:35-0500 Pulse (Heart Rate) 75 /min [facility] 06-23-2020 07:35-0500 Pulse Oximetry 94 % [facility] 06-23-2020 07:35-0500 Respiratory Rate 16 /min [facility] 06-22-2020 14:15-0500 BMI (Body Mass Index) 20.36 kg/m2 [facility] 06-22-2020 14:15-0500 Body weight 58.97 kg [facility] 06-22-2020 14:15-0500 Height 170.2 cm [facility] Encounters Encounter Date Encounter Type Care Provider [...] Emergency department patient visit PHYSICIAN [facility] Start: 07-08-2020 End: 07-08-2020 Emergency department patient visit Kate Mendoza Work Phone: [facility] Emergency Department Comment on above: Abdominal pain, unsp ecified abdominal location (Primary Dx) Start: 06-22-2020 End: 06-23-2020 Patient encounter procedure PHYSICIAN [facility] Start: 06-22-2020 End: 06-23-2020 Emergency [...] blood count with white cell differential, automated Pipestem Wu Work Phone: Start: 06-22-2020 Complete blood count with white cell differential, manual Pipestem Wu Work Phone: Start: 06-22-2020 Comprehensive metabolic [...] vaccination given Se quential Influenza Vaccine (#1) [facility] Start: 2012 Hepatitis C antibody , confirmatory test Hepatitis C Screening [facility] Start: 2009 HIV screening HIV Screening [facility] Start: 2006 Adolescent depressio n screening assessment Depression Screening (PHQ9) [facility] Start: 2005 Vaccination for tri n papillomavirus HPV Vaccines (1 - 2-dose series) [facility] Start: 1997 History and physical examination, annual for health maintenance Wellness Visit [facility] Start: 1994 Screening for malign ant neoplasm of cervix Pap Smear [facility] Start: 1994 Tetanus vaccination Tetanus: Every [address] [facility] Procedure on tissue specimen Tis kyara Exam Pathology and Cytology STAT Release Upon Ordering for 1 Occurrences starting 06/22/2020 [facility] Comment on above: Release Upon Orderin g for 1 Occurrences starting 06/22/2020 Payers Date Payer Category Payer Unknown [employer] PPO [id number] 2019-Present [id number] 2019 Unknown [id number] 1994 Unknown [id number] 2..[id number] 1994 Unknown [id number] [id number] 1994 Unknown [id number] 2.16.840.1.926600.3.579.2.593 1994 Unknown [id number] 2.16.840.1.657359.3.579.2.593 1994 Unknown [id number] 2.16.840.1.606707.3.579.2.593 1994 Unknown [id number] 2.16.840.1.873889.3.579.2.593 1994 Unknown [id number] 2.16.840.1.448393.3.579.2.9 1994 Unknown [id number] 2.16.840.1.104255.3.579.2.9 1994 Unknown [id number] 2.16.840.1.682241.3.579.2.9 1994 Unknown [id number] 2.16.840.1.164806.3.579.2.1258 1994 Unknown [id number] 2.16.840.1.038581.3.579.2.9 1994 Unknown [id number] 2.16.840.1.441837.3.579.2.1258 1994 Unknown [id number] 2.16.840.1.070408.3.579.2.1258 1994 Unknown [id number] 2.16.840.1.763437.3.579.2.1258 1994 Unknown [id number] 2.16.840.1.024311.3.579.2.9 1994 Unknown [id number] 2.16.840.1.629321.3.579.2.1258 1994 Unknown [id number] 2.16.840.1.829214.3.579.2.1259 1959 Unknown [id number] Social History Date Type Detail Facility Start: 06-23-2020 End: 07-08-2020 Tobacco smoking status NHIS Never smoker [facility] Start: 06-23-2020 End: 07-08-2020 Tobacco use and exposure Never used [facility] Start: 06-23-2020 End: 07-08-2020 Alcohol intake Ex-drinker (finding) [facility] Sex Assigned At Not on file [facility] Exposure to SARS-CoV-2 (event) Not sure [facility] Discharge Instructions * Instructions* Magdi Salazar MD - 06/23/[address] Salazar (Hernia Repair/Gallbladder) [phone] No Lifting, no bending, no pushing May [...] A MEDICAL NATURE, CALL YOUR DOCTOR/EMERGENCY ROOM. [facility] [phone] Make a follow-up appointment with your surgeon. Post Operative Instructions Dr Salazar (Hernia Repair/Gallbladder) [phone] No Lifting, no bending, no pushing May [...] A MEDICAL NATURE, CALL YOUR DOCTOR/EMERGENCY ROOM. [facility] [phone] Make a follow-up appointment with your surgeon. documented in this encounter* Attachments The following attachments cannot be sent through Care Everywhere. 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 Patient is to be kept n.p.o. He would like 3.375 of Zosyn given to the patient. He would like the patient admitted to his service. Clinical Impression: 1. Acute appendicitis with localized peritonitis, without perforation, abscess, or gangrene Disposition: hospitalize to Operating Room Andrey Valdez M.D. Attending Physician [facility] Emergency Departments 06/22/2020 Portions of this note [...] lobby. Pt alert, oriented and stable at pr. ED PROVIDER NOTE [facility] EMERGENCY [facility]PART[facility] NAME: Mele Thompson AGE: 24 y.o. : 1995 VISIT DATE: 07/08/2020 CSN: [id number] PCP: Physician No Chief Complaint Patient presents [...] file Gets together: Not on file Attends christianity service: Not on file Active member of [...] Colorless, Yellow Clarity, Urine Clear Clear Specific [place] 1.020 1.005 - 1.025 pH, Urine 7.5 [...] Magdi Salazar MD. Specialty: General Surgery [facility] [id number] Contact information for after-discharge care Follow-up information [...] on op-sites. MELE THOMPSON [facility] [id number] [facility] [id number] 1995 DATE 06/22/2020 OPERATIVE REPORT SURGEON MAGDI [...] utilizing 0 Ethibond with an open technique. [id number] suture was placed after complete desufflation of [...] appendicitis. MAGDI SALAZAR MD D 06/22/2020 20:33 [id number] 06/23/2020 01:38 VMT/MODL Umbilical dressing saturated with light pink serous drainage.Pubic dressing 1/2 saturated with shadow of pink drainage. Brief Post Operative Note Patient Name: Mele Thompson : 1995 (24 y.o.) Date of Service: 06/22/2020 CSN: [id number] Procedure(s): APPENDECTOMY LAPAROSCOPIC Pre-Operative Diagnoses: RIGHT SIDED ABDOMINAL PAIN - ACUTE APPENDICITIS Post-Operative Diagnoses: ACUTE RETROCECAL APPENDICITIS Surgeon(s) and Role: * Magdi Salazar MD - Primary Anesthesiologist: Jaylin Buckley MD Control Cabinet Assembler: Tanisha Varghese RN Scrub Person Assist: [...] previous ECG Rhythm: sinus rhythm BPM: 85 PA Interval: 108 QRS Interval: 82 QT Interval: 426 Clinical impression: non-specific ECG documented in this encounter INFORMATION SOURCE (unrecogn ized section and content) DATE CREATED AUTHOR 07/13/2020 [facility] DATE CREATED AUTHOR AUTHOR'S ORGANIZ ATION 01/28/2023 [facility] DATE CREATED AUTHOR AUTHOR'S ORGANIZ ATION 05/24/2024 [facility] FOR RECORDS PERTAINING TO PATIENTS [...] BE BASED ON THE PRIMARY CLINICAL RECORDS. [employer] [facility]. provides no warranty or guarantee of the accuracy or completeness of information in this document.
[2024-05-29 13:23] VITALS: BP 120/73; PULSE 125
== END 2024-05-29 13:52 | disposition home or self-care (01) ==
LOC: US 07:04 → FBC 13:05
PROVIDERS: PCP Obstetrics & Gynecology; Visit Provider Physician Assistant
DX: Z87.59 Personal history of other complications of pregnancy, childbirth and the puerperium (principal); Z3A.39 39 weeks gestation of pregnancy
CPT/HCPCS: 76818

== ENCOUNTER 2024-06-01 07:08 | Outpatient (OUT) | payer BC, SELFPAY ==
--- OUTSIDE RECORDS SUMMARY | 2024-06-01 07:11 | XMS_ITS | CCD ---
Author Organization [facility] Care Team Providers Care Info Analyst Name Role Phone No, Physician Primary Care Provider Unavailabl e NO, PHYSICIAN Primary Care Unavailable MAGDI SALAZAR Consulting Moon SALAZAR, MAGDI REYNOSO Attending Moon SALAZAR, MAGDI REYNOSO Admitting Moon FELIZ, PHYSICIAN Primary Care Unavailable KATE MENDOZA [...] HUGHES Attending Unavailable CRISTI, ELLEN Attending Unavailable DALY CIERA Attending Unavailable CRISTI, ELLEN Attending Unavailable DALY CIERA Attending Unavailable CRISTI, ELLEN Attending Unavailable DALY, CIERA Attending Unavailable CRISTI, ELLEN Attending Unavailable CRISTI, [...] HCG QUANT 67 mIU/mL Normal [facility] Comment on above: Performed By: #### P REGQNT #### [facility] [address] [place] [address] Dr. Tammi Fleming HCG RANGE SEE BELOW Normal [facility] Comment on above: Result Comment: 5-50 0.2-1 WEEK 50-500 1-2 WEEKS 100-5,000 2-3 WEEKS 500-10,000 3-4 WEEKS 1,000-50,000 4-5 WEEKS 10,000-100,000 5-6 WEEKS 15,000-200,000 6-8 WEEKS 10,000-100,000 2-3 MONTHS Performed By: #### P REGQNT #### [facility] [address] [place] [address] Dr. Tammi Fleming PREG QUANT HCGon 01-10-2023 HCG QUANT 231 mIU/mL Normal [facility] Comment on above: Performed By: #### P REGQNT #### [facility] [address] [place] [address] Dr. Tammi Fleming HCG RANGE SEE BELOW Normal [facility] Comment on above: Result Comment: 5-50 0.2-1 WEEK 50-500 1-2 WEEKS 100-5,000 2-3 WEEKS 500-10,000 3-4 WEEKS 1,000-50,000 4-5 WEEKS 10,000-100,000 5-6 WEEKS 15,000-200,000 6-8 WEEKS 10,000-100,000 2-3 MONTHS Performed By: #### P REGQNT #### [facility] [address] [place] [address] Dr. Tammi Fleming CBC AUTO DIFFon 01-04-2023 BASO # 0.0 103/ul Normal 0.0-0.1 [facility] Comment on above: Performed By: #### C BC #### [facility] [address] [place] [address] Dr. Tammi Fleming Basophils/100 WBC (Bld) 0.3 % Normal 0.2-2.0 [facility] Comment on above: Performed By: #### C BC #### [facility] [address] [place] [address] Dr. Tammi Fleming EO # 0.1 103/ul Normal 0.0-0.7 [facility] Comment on above: Performed By: #### C BC #### [facility] [address] [place] [address] Dr. Tammi Fleming Eosinophils/100 WBC (Bld) 0.8 % Critically low 0.9-7.0 [facility] Comment on above: Performed By: #### C BC #### [facility] [address] [place] [address] Dr. Tammi Fleming Erythrocyte distribution width (RBC) [Ratio] 12.0 % Normal 11.0-15.0 [facility] Comment on above: Performed By: #### C BC #### [facility] [address] [place] [address] Dr. Tammi Fleming Hematocrit (Bld) [Volume fraction] 42.6 % Normal 36.0-48.0 [facility] Comment on above: Performed By: #### C BC #### [facility] [address] [place] [address] Dr. Tammi Fleming Hemoglobin (Bld) [Mass/Vol] 14.5 g/dL Normal 12.0-16.0 [facility] Comment on above: Performed By: #### C BC #### [facility] [address] [place] [address] Dr. Tammi Fleming IG # 0.02 10e3/ul Normal 0.00-0.03 [facility] Comment on above: Performed By: #### C BC #### [facility] [address] [place] [address] Dr. Tammi Fleming IG % 0.3 % Normal 0.0-0.5 [facility] Comment on above: Performed By: #### C BC #### [facility] [address] [place] [address] Dr. Tammi Fleming LYMPH # 1.6 103/ul Normal 1.2-3.8 [facility] Comment on above: Performed By: #### C BC #### [facility] [address] [place] [address] Dr. Tammi Fleming Lymphocytes/100 WBC (Bld) 19.9 % Critically low 20.5-60.0 [facility] Comment on above: Performed By: #### C BC #### [facility] [address] [place] [address] Dr. Tammi Fleming MANUAL DIFF REQ NO Normal [facility] Comment on above: Performed By: #### C BC #### [facility] [address] [place] [address] Dr. Tammi Fleming MCH (RBC) [Entitic mass] 29.8 pg Normal 26.7-34.0 [facility] Comment on above: Performed By: #### C BC #### [facility] [address] [place] [address] Dr. Tammi Fleming MCHC (RBC) [Mass/Vol] 34.0 g/dL Normal 29.9-35.2 [facility] Comment on above: Performed By: #### C BC #### [facility] [address] [place] [address] Dr. Tammi Fleming MCV (RBC) [Entitic vol] 87.7 fL Normal 81.0-99.0 [facility] Comment on above: Performed By: #### C BC #### [facility] [address] [place] [address] Dr. Tammi Fleming MONO # 0.4 103/ul Normal 0.3-0.8 [facility] Comment on above: Performed By: #### C BC #### [facility] [address] [place] [address] Dr. Tammi Fleming Monocytes/100 WBC (Bld) 5.0 % Normal 1.7-12.0 [facility] Comment on above: Performed By: #### C BC #### [facility] [address] [place] [address] Dr. Tammi Fleming NEUT # 5.8 103/ul Normal 1.4-6.5 [facility] Comment on above: Performed By: #### C BC #### [facility] [address] [place] [address] Dr. Tammi Fleming Neutrophils/100 WBC (Bld) 73.7 % Normal 43.0-75.0 [facility] Comment on above: Performed By: #### C BC #### [facility] [address] [place] [address] Dr. Tammi Fleming Platelet mean volume (Bld) [Entitic vol] 12.1 fL Normal 9.5-13.5 [facility] Comment on above: Performed By: #### C BC #### [facility] [address] [place] [address] Dr. Tammi Fleming PLT 184 103/ul Normal 150-450 [facility] Comment on above: Performed By: #### C BC #### [facility] [address] [place] [address] Dr. Tammi Fleming RBC 4.86 106/ul Normal 4.20-5.40 [facility] Comment on above: Performed By: #### C BC #### [facility] [address] [place] [address] Dr. Tammi Fleming WBC 7.9 103/ul Normal 4.0-11.0 [facility] Comment on above: Performed By: #### C BC #### [facility] [address] [place] [address] Dr. Tammi Fleming ER URINE PROFILEon 3 Bilirubin Ql (U) Negative Normal NEGATIVE [facility] Comment on above: Performed By: #### Angela CHRISTIE UMICRO #### [facility] [address] [place] [address] Dr. Tammi Fleming Clarity (U) CLEAR Normal CLEAR [facility] Comment on above: Performed By: #### Angela CHRISTIE UMICRO #### [facility] [address] [place] [address] Dr. Tammi Fleming Color (U) LT. YELLOW Normal YELLOW [facility] Comment on above: Performed By: #### Angela CHRISTIE UMICRO #### [facility] [address] [place] [address] Dr. Tammi Fleming ERUKATIED A micrscopic examina tion will be performed if indicated. Normal [facility] Comment on above: Performed By: #### Angela CHRISTIE UMICRO #### [facility] [address] [place] [address] Dr. Tammi Fleming Glucose Ql (U) Negative Normal NEGATIVE [facility] Comment on above: Performed By: #### Angela CHRISTIE UMICRO #### [facility] [address] [place] [address] Dr. Tammi Fleming Hemoglobin Ql (U) LARGE Abnormal NEGATIVE [facility] Comment on above: Performed By: #### Angela CHRISTIE UMICRO #### [facility] [address] [place] [address] Dr. Tammi Fleming Ketones Ql (U) Negative Normal NEGATIVE [facility] Comment on above: Performed By: #### CIRILO SORTO #### [facility] [address] [place] [address] Dr. Tammi Fleming LEUKOCYTES Negative Normal NEGATIVE [facility] Comment on above: Performed By: #### NAGA SORTORO #### [facility] [address] [place] [address] Dr. Tammi Fleming Nitrite Ql (U) Negative Normal NEGATIVE [facility] Comment on above: Performed By: #### NAGA SORTORO #### [facility] [address] [place] [address] Dr. Tammi Fleming pH (U) 7.0 [pH] Normal 5-9 [facility] Comment on above: Performed By: #### NAGA SORTORO #### [facility] [address] [place] [address] Dr. Tammi Fleming SPEC GRAVITY <=1.005 Abnormal 1.005-<=1.025 [facility] Comment on above: Performed By: #### NAGA SORTORO #### [facility] [address] [place] [address] Dr. Tammi Fleming UA PROTEIN Negative Normal NEGATIVE/ TRACE [facility] Comment on above: Performed By: #### NAGA SORTORO #### [facility] [address] [place] [address] Dr. Tammi Fleming UR MICRO IND INDICATED Normal [facility] Comment on above: Performed By: #### CIRILO SORTO #### [facility] [address] [place] [address] Dr. Tammi Fleming Urobilinogen Qn (U) 0.2 {Elder'U}/dL Normal 0.2 - 1.0 [facility] Comment on above: Performed By: #### NAGA SORTORO #### [facility] [address] [place] [address] Dr. Tammi Fleming PREG QUANT HCGon 01-04-2023 HCG QUANT 4523 mIU/mL Normal [facility] Comment on above: Performed By: #### P REGQNT #### [facility] [address] [place] [address] Dr. Tammi Fleming HCG RANGE SEE BELOW Normal [facility] Comment on above: Result Comment: 5-50 0.2-1 WEEK 50-500 1-2 WEEKS 100-5,000 2-3 WEEKS 500-10,000 3-4 WEEKS 1,000-50,000 4-5 WEEKS 10,000-100,000 5-6 WEEKS 15,000-200,000 6-8 WEEKS 10,000-100,000 2-3 MONTHS Performed By: #### P REGQNT #### [facility] [address] [place] [address] Dr. Tammi Fleming URINE MICROSCOPIC ONLYon BACTERIA TRACE Abnormal NONE SEEN [facility] Comment on above: Performed By: #### E JENNIFERR, UMICRO #### [facility] [address] [place] [address] Dr. Tammi Fleming Bacteria identified Cx Nom (U) NOT INDICATED Normal [facility] Comment on above: Performed By: #### E RUR, UMICRO #### [facility] [address] [place] [address] Dr. Tammi Fleming CAST NONE SEEN Normal NONE SEEN [facility] Comment on above: Performed By: #### E RUR, UMICRO #### [facility] [address] [place] [address] Dr. Tammi Fleming Crystals LM Nom (Urine sed) NONE SEEN Normal NONE SEEN [facility] Comment on above: Performed By: #### E RUR, UMICRO #### [facility] [address] [place] [address] Dr. Tammi Fleming Epithelial cells LM Ql (Urine sed) NONE SEEN Normal NONE SEEN /RARE [facility] Comment on above: Performed By: #### E RUR, UMICRO #### [facility] [address] [place] [address] Dr. Tammi Fleming MUCOUS NONE SEEN Normal NONE SEEN [facility] Comment on above: Performed By: #### E RUR, UMICRO #### [facility] [address] [place] [address] Dr. Tammi Fleming RBC 2-5 Abnormal 0-2 [facility] Comment on above: Performed By: #### CIRILO SORTO #### [facility] [address] [id number] Tammi Fleming WBC NONE SEEN Normal NONE SEEN [facility] Comment on above: Performed By: #### CIRILO SORTO #### [facility] [id number] Tammi Fleming US PREG TVon 01-04-2023 [...] DEYVI FELDER Date: 2023-01-04 18:08 Normal [facility] BMPon 07-08-2020 Anion gap [Moles/Vol] 11 mmol/L 10 - 20 mmol/L [facility] Calcium [Mass/Vol] 9.5 mg/dL 8.4 - 10. 2 mg/dL [facility] Chloride [Moles/Vol] 109 mmol/L High 98 - 108 mmol/L [facility] Creatinine [Mass/Vol] 0.85 mg/dL 0.40 - 1.10 [facility] GFR/1.73 sq M predicted among non-blacks MDRD (S/P/Bld) [Vol rate/Area] The eGFR should be used for monitoring renal function only and not for medication dosing. [facility] GFR/1.73 sq M.predicted CKD-EPI (S/P/Bld) [Vol rate/Area] 96 >=60 mL/min/1.73 m2 [facility] Glucose [Mass/Vol] 95 mg/dL 65 - 99 mg/dL [facility] HCO3 [Moles/Vol] 23 mmol/L 21 - 32 mmol/L [facility] Interpretation and review of laboratory results Abnormal [facility] Potassium [Moles/Vol] 3.5 mmol/L 3.5 - 5.1 mmol/L [facility] Sodium [Moles/Vol] 139 mmol/L 135 - 145 mmol/L [facility] Urea nitrogen [Mass/Vol] 10 mg/dL 8 - 25 mg/dL [facility] Urea nitrogen/Creatinin e [Mass ratio] 11.8 mg/mg [facility] CBC WITH AUTO DIFFERENTIALon 07-08-2020 Basophils (Bld) [#/Vol] 0.02 10*3/uL [facility] Basophils/100 WBC (Bld) 0.2 % [facility] Eosinophils (Bld) [#/Vol] 0.04 10*3/uL [facility] Eosinophils/100 WBC (Bld) 0.5 % [facility] Erythrocyte distribution width (RBC) [Entitic vol] 12.0 % 11.6 - 14.8 % [facility] Hematocrit (Bld) [Volume fraction] 43.3 % 36 - 46 % [facility] Hemoglobin (Bld) [Mass/Vol] 14.7 g/dL 12 - 16 g/dL [facility] Immature granulocytes (Bld) [#/Vol] 0.00 10*3/uL [facility] Immature granulocytes/100 WBC (Bld) 0.00 % [facility] Comment on above: The IG parameter is the percentage of metamyelocytes, myelocytes and promyelocytes. An immature granulocyte count (IG) of 1% or more suggests the possibility of infection, an IG count of 3% is very likely related to an infection. Lymphocytes (Bld) [#/Vol] 2.44 10*3/uL [facility] Lymphocytes/100 WBC (Bld) 30.2 % [facility] MCH (RBC) [Entitic mass] 29.2 pg 26 - 34 pg [facility] MCHC (RBC) [Mass/Vol] 33.9 g/dL 31 - 37 g/dL [facility] MCV (RBC) [Entitic vol] 86.1 fL 80 - 100 fL [facility] Monocytes (Bld) [#/Vol] 0.40 10*3/uL [facility] Monocytes/100 WBC (Bld) 5.0 % [facility] Neutrophils (Bld) [#/Vol] 5.17 10*3/uL [facility] Neutrophils/100 WBC (Bld) 64.1 % [facility] Platelet mean volume (Bld) [Entitic vol] 11.8 fL 9.4 - 12.4 fL [facility] Platelets (Bld) [#/Vol] 228 10*3/uL [facility] RBC (Bld) [#/Vol] 5.03 10*6/uL [facility] W[facility] (Bld) [#/Vol] 8.07 10*3/uL [facility] ABD[facility]EN PELVIS WITH IV [...] TueJul 08, 2020 3:59:53 PM EST Normal [facility] Comment on above: Order Comment: Injur y/Trauma or Illness?:Illness/Other How long have you had these symptoms (acute/chronic)?:Acute Reason for exam?:abd pain: nausea Type of Exam?:Initial Additional signs and symptoms?:abd pain x [address] Abdomen Pelvis With IV Co ntrast Onlyon 07-08-2020 Interface, Rad In [facility] Speech - 07/08/2020 4:02 PM EST EXAMINATION: [...] changes from recent appendectomy. Workstation ID: [id number] [facility] EXAMINATION: CT ABDO MEN PELVIS [...] No acute or aggressive osseous abnormality identified. [facility] 1. No acute infectio us, inflammatory or obstructive process identified in the abdomen or pelvis. 2. Postsurgical changes from recent appendectomy. Workstation ID: [id number] [facility] Hepatic Function Panel (LFT) on 07-08-2020 Albumin [Mass/Vol] 3.8 g/dL 3.2 - 5.2 g/dL [facility] ALP [Catalytic activity/Vol] 71 U/L 40 - 140 U/L [facility] ALT [Catalytic activity/Vol] 31 U/L 14 - 65 U/L [facility] AST [Catalytic activity/Vol] 18 U/L 0 - 45 U/L [facility] Bilirubin [Mass/Vol] 0.3 mg/dL 0 - 1.3 mg/dL [facility] Bilirubin.conjugat ed [Mass/Vol] mg/dL 0 - 0.4 mg/dL [facility] Protein [Mass/Vol] 7.9 g/dL 6 - 8 g/dL [facility] alth Lipaseon 07-08-2020 Lipase [Catalytic activity/Vol] 95 U/L 73 - 393 U/L [facility] Otheron 07-08-2020 Interpretation and review of laboratory results Normal [facility] Extra Tube Hold for add-ons. [facility] Comment on above: Auto resulted. URINALYSISon 07-08-2020 Bacteria Auto Ql (U) Rare Abnormal None Seen /hpf [facility] Bilirubin Ql (U) Negative Negative [facility] th Clarity Refractometry automated (U) Clear Clear [facility] Color (U) Yellow Colorless, Yellow [facility] Epithelial cells.squamous Auto (Urine sed) [#/Area] 1 [facility] Glucose Auto test strip (U) [Mass/Vol] Negative Negative mg/dL [facility] Hemoglobin Auto test strip Ql (U) Negative Negative [facility] Interpretation and review of laboratory results Abnormal [facility] Ketones (U) [Mass/Vol] Negative Negative mg/dL [facility] Leukocyte esterase Auto test strip Ql (U) Negative Negative [facility] Nitrite Auto test strip Ql (U) Negative Negative [facility] pH (U) 7.5 [pH] High [facility] Protein (U) [Mass/Vol] Negative Negative mg/dL [facility] Specific gravity (U) [Rel density] 1.020 [facility] Urobilinogen (U) [Mass/Vol] <2.0 <2.0 mg/dL [facility] Microscopic examinat ion is performed on all urinalysis samples and only positive findings are reported. The test for blood on the chemical analytic portion of urinalysis may also be positive due to hemoglobinuria and myoglobinuria and if red blood cells are present they are quantified by microscopic examination. [facility] Urine Pregnancyon 07-08-2020 HCG ( test) Ql (U) Negative Negative [facility] Interpretation and review of laboratory results Normal [facility] CBC WITH AUTO DIFFERENTIALon 06-23-2020 Basophils (Bld) [#/Vol] 0.00 10*3/uL [facility] Basophils/100 WBC (Bld) 0.0 % [facility] Eosinophils (Bld) [#/Vol] 0.00 10*3/uL [facility] Eosinophils/100 WBC (Bld) 0.0 % [facility] Erythrocyte distribution width (RBC) [Entitic vol] 12.2 % 11.6 - 14.8 % [facility] Hematocrit (Bld) [Volume fraction] 37.2 % 36 - 46 % [facility] Hemoglobin (Bld) [Mass/Vol] 12.6 g/dL 12 - 16 g/dL [facility] Immature granulocytes (Bld) [#/Vol] 0.01 10*3/uL [facility] Immature granulocytes/100 WBC (Bld) 0.10 % [facility] Comment on above: The IG parameter is the percentage of metamyelocytes, myelocytes and promyelocytes. An immature granulocyte count (IG) of 1% or more suggests the possibility of infection, an IG count of 3% is very likely related to an infection. Interpretation and review of laboratory results Abnormal [facility] Lymphocytes (Bld) [#/Vol] 0.82 10*3/uL Low [facility] Lymphocytes/100 WBC (Bld) 6.8 % [facility] MCH (RBC) [Entitic mass] 29.3 pg 26 - 34 pg [facility] MCHC (RBC) [Mass/Vol] 33.9 g/dL 31 - 37 g/dL [facility] MCV (RBC) [Entitic vol] 86.5 fL 80 - 100 fL [facility] Monocytes (Bld) [#/Vol] 0.31 10*3/uL [facility] Monocytes/100 WBC (Bld) 2.6 % [facility] Neutrophils (Bld) [#/Vol] 10.86 10*3/uL High [facility] Neutrophils/100 WBC (Bld) 90.5 % [facility] Platelet mean volume (Bld) [Entitic vol] 12.1 fL 9.4 - 12.4 fL [facility] Platelets (Bld) [#/Vol] 197 10*3/uL [facility] RBC (Bld) [#/Vol] 4.30 10*6/uL [facility] ealth WBC (Bld) [#/Vol] 12.00 10*3/uL [facility] CBC WITH AUTO DIFFERENTIALon 06-22-2020 Basophils (Bld) [#/Vol] 0.02 10*3/uL [facility] Basophils/100 WBC (Bld) 0.1 % [facility] Eosinophils (Bld) [#/Vol] 0.00 10*3/uL [facility] Eosinophils/100 WBC (Bld) 0.0 % [facility] Erythrocyte distribution width (RBC) [Entitic vol] 12.0 % 11.6 - 14.8 % [facility] Hematocrit (Bld) [Volume fraction] 40.2 % 36 - 46 % [facility] Hemoglobin (Bld) [Mass/Vol] 14.0 g/dL 12 - 16 g/dL [facility] Immature granulocytes (Bld) [#/Vol] 0.02 10*3/uL [facility] Immature granulocytes/100 WBC (Bld) 0.10 % [facility] Comment on above: The IG parameter is the percentage of metamyelocytes, myelocytes and promyelocytes. An immature granulocyte count (IG) of 1% or more suggests the possibility of infection, an IG count of 3% is very likely related to an infection. Interpretation and review of laboratory results Abnormal [facility] Lymphocytes (Bld) [#/Vol] 1.20 10*3/uL [facility] Lymphocytes/100 WBC (Bld) 5.9 % [facility] MCH (RBC) [Entitic mass] 29.4 pg 26 - 34 pg [facility] MCHC (RBC) [Mass/Vol] 34.8 g/dL 31 - 37 g/dL [facility] MCV (RBC) [Entitic vol] 84.5 fL 80 - 100 fL [facility] Monocytes (Bld) [#/Vol] 0.67 10*3/uL [facility] Monocytes/100 WBC (Bld) 3.3 % [facility] Neutrophils (Bld) [#/Vol] 18.51 10*3/uL [facility] Neutrophils/100 WBC (Bld) 90.6 % [facility] Platelet mean volume (Bld) [Entitic vol] 11.7 fL 9.4 - 12.4 fL [facility] Platelets (Bld) [#/Vol] 223 10*3/uL [facility] RBC (Bld) [#/Vol] 4.76 10*6/uL [facility] ealt WBC (Bld) [#/Vol] 20.42 10*3/uL [facility] COVID-19, MOLECULARon 2019 SARS-COV-2 (BERG ID) Not Detected Normal Not Detected [facility] Comment on above: [...] at the following links: For Healthcare Providers: https://www.fda.gov/media/991501/download For Patients: https://www.fda.gov/media/212829/download Performed By: #### L [id number] #### [facility] [address] [address] Kenneth Arrieta M.D. [id number] COVID-19, Molecularon 2019 Interpretation and review of laboratory results Normal [facility] SARS-CoV-2 Not Detected Not Detected [facility] Comment on above: This test was perfor [...] at the following links: For Healthcare Providers: https://www.fda.gov/media/934639/download For Patients: https://www.fda.gov/media/060473/download CT ABDOMEN PELVIS WITH IV CO NTRAST [...] seen directed medially within the central anterior [id number] pelvis. No bowel obstruction. Some physiologic free [...] is directed medially within the central anterior [id number] pelvis with no bowel obstruction. 3. Some [...] TueJun 22, 2020 8:48:07 PM EST Normal [facility] [facility] Comment on above: [...] seen directed medially within the central anterior ipe-nf-wdewq pelvis. No bowel obstruction. Some physiologic free [...] is directed medially within the central anterior krw-ai-jhiec pelvis with no bowel obstruction. 3. Some physiologic free fluid in the cul-de-sac. Some small follicles seen in the ovaries bilaterally. Results were called by Dr. Clifford Wilson to Dr. ANDREY VALDEZ on 06/22/2020 at 16:43. GJT/[employer] Workstation ID: [id number] [facility] 1. Acute appendiciti s. The appendix is seen just anterior to the right common iliac artery and is distended approaching 9 mm with wall enhancement and surrounding fatty stranding. 2. Moderate amount of fecal matter in the proximal colon. The cecum is directed medially within the central anterior hvo-zx-amfeb pelvis with no bowel obstruction. 3. Some physiologic free fluid in the cul-de-sac. Some small follicles seen in the ovaries bilaterally. Results were called by Dr. Clifford Wilson to Dr. ANDREY VALDEZ on 06/22/2020 at 16:43. [employer] Workstation ID: [id number] [facility] EXAMINATION: CT ABDO MEN PELVIS [...] seen directed medially within the central anterior ghr-qh-qdbsc pelvis. No bowel obstruction. Some physiologic free fluid in the cul-de-sac. Some follicles seen in the ovaries bilaterally. The uterus and urinary bladder unremarkable. No acute osseous abnormality. [facility] Comprehensive Metabolic Pane kendra 06-22-2020 Albumin [Mass/Vol] 4.0 g/dL 3.2 - 5.2 g/dL [facility] ALP [Catalytic activity/Vol] 63 U/L 40 - 140 U/L [facility] ALT [Catalytic activity/Vol] 27 U/L 14 - 65 U/L [facility] Anion gap [Moles/Vol] 10 mmol/L 10 - 20 mmol/L [facility] AST [Catalytic activity/Vol] 18 U/L 0 - 45 U/L [facility] Bilirubin [Mass/Vol] 0.5 mg/dL 0 - 1.3 mg/dL [facility] Calcium [Mass/Vol] 9.1 mg/dL 8.4 - 10. 2 mg/dL [facility] Chloride [Moles/Vol] 109 mmol/L High 98 - 108 mmol/L [facility] Creatinine [Mass/Vol] 0.83 mg/dL 0.40 - 1.10 [facility] GFR/1.73 sq M predicted among non-blacks MDRD (S/P/Bld) [Vol rate/Area] The eGFR should be used for monitoring renal function only and not for medication dosing. [facility] GFR/1.73 sq M.predicted CKD-EPI (S/P/Bld) [Vol rate/Area] 98 >=60 mL/min/1.73 m2 [facility] Glucose [Mass/Vol] 96 mg/dL 65 - 99 mg/dL [facility] HCO3 [Moles/Vol] 25 mmol/L 21 - 32 mmol/L [facility] Potassium [Moles/Vol] 3.7 mmol/L 3.5 - 5.1 mmol/L [facility] Protein [Mass/Vol] 7.8 g/dL 6 - 8 g/dL [facility] alth Sodium [Moles/Vol] 140 mmol/L 135 - 145 mmol/L [facility] Urea nitrogen [Mass/Vol] 10 mg/dL 8 - 25 mg/dL [facility] Urea nitrogen/Creatinin e [Mass ratio] 12.0 mg/mg [facility] ECG 12-LEADon 06-22-2020 Andrey Valdez MD 2019 4:57 PM ECG 12 Lead Date/Time: 06/22/2020 4:51 PM Performed by: Andrey Valdez MD Authorized by: Andrey Valdez MD Interpreted by ED attending physician Comparison: not compared with previous ECG Rhythm: sinus rhythm BPM: 85 [place] Interval: 108 QRS Interval: 82 QT Interval: 426 Clinical impression: non-specific ECG [facility] Lipaseon 06-22-2020 Lipase [Catalytic activity/Vol] 72 U/L Low 73 - 393 U/L [facility] Otheron 06-22-2020 Interpretation and review of laboratory results Abnormal [facility] URINALYSISon 06-22-2020 Bacteria Auto Ql (U) Few Abnormal None Seen /hpf [facility] Bilirubin Ql (U) Negative Negative [facility] th Clarity Refractometry automated (U) Cloudy Abnormal Clear [facility] Color (U) Yellow Colorless, Yellow [facility] Epithelial cells.squamous Auto (Urine sed) [#/Area] 3 [facility] Glucose Auto test strip (U) [Mass/Vol] Negative Negative mg/dL [facility] Hemoglobin Auto test strip Ql (U) Negative Negative [facility] Interpretation and review of laboratory results Abnormal [facility] Ketones (U) [Mass/Vol] 20 Abnormal Negative mg/dL [facility] Leukocyte esterase Auto test strip Ql (U) Negative Negative [facility] Nitrite Auto test strip Ql (U) Negative Negative [facility] pH (U) 7.0 [pH] [facility] Protein (U) [Mass/Vol] Negative Negative mg/dL [facility] Specific gravity (U) [Rel density] 1.020 [facility] Urobilinogen (U) [Mass/Vol] <2.0 <2.0 mg/dL [facility] WBC Auto (Urine sed) [#/Area] 2 [facility] Microscopic examinat ion is performed on all urinalysis samples and only positive findings are reported. The test for blood on the chemical analytic portion of urinalysis may also be positive due to hemoglobinuria and myoglobinuria and if red blood cells are present they are quantified by microscopic examination. [facility] Urine Pregnancyon 06-22-2020 HCG ( test) Ql (U) Negative Negative [facility] Interpretation and review of laboratory results Normal [facility] Vital Signs Date Time Vital Sign Value Performing Clinician Faci litimelda 07-08-2020 15:34-0500 BP Diastolic 79 mm[Hg] [facility] 07-08-2020 15:34-0500 BP Systolic 125 mm[Hg] [facility] 07-08-2020 15:34-0500 Pulse (Heart Rate) 81 /min [facility] 07-08-2020 15:34-0500 Pulse Oximetry 99 % [facility] 07-08-2020 15:34-0500 Respiratory Rate 16 /min [facility] 07-08-2020 13:50-0500 BMI (Body Mass Index) 20.36 kg/m2 Kate [facility] 07-08-2020 13:50-0500 Body Temperature 98.49 [degF] Kate [facility] 07-08-2020 13:50-0500 Body weight 58.97 kg Kate [facility] 07-08-2020 13:50-0500 Height 170.2 cm Kate [facility] 06-23-2020 07:35-0500 Body Temperature 98.01 [degF] Andrey [facility] 06-23-2020 07:35-0500 BP Diastolic 68 mm[Hg] [facility] 06-23-2020 07:35-0500 BP Systolic 106 mm[Hg] [facility] 06-23-2020 07:35-0500 Pulse (Heart Rate) 75 /min [facility] 06-23-2020 07:35-0500 Pulse Oximetry 94 % [facility] 06-23-2020 07:35-0500 Respiratory Rate 16 /min [facility] 06-22-2020 14:15-0500 BMI (Body Mass Index) 20.36 kg/m2 [facility] 06-22-2020 14:15-0500 Body weight 58.[address] [facility] 06-22-2020 14:15-0500 Height 170.[address] [facility] Encounters Encounter Date Encounter Type Care Provider Facility Start: 05-29-2024 End: 05-29-2024 ambulatory CIERA DALY Not Available Start: 05-15-2024 End: 05-15-2024 ambulatory ELLEN CRISTI [...] 07-08-2020 Emergency department patient visit PHYSICIAN NO [facility] Start: 07-08-2020 End: 07-08-2020 Emergency department patient visit Kate Mendoza Work Phone: [facility] Comment on above: Abdominal pain, unsp ecified abdominal location (Primary Dx) Start: 06-22-2020 End: 06-23-2020 Patient encounter procedure PHYSICIAN NO [facility] Start: 06-22-2020 End: 06-23-2020 Emergency department patient visit Andrey Valdez Work Phone: [facility] Med Surg Comment [...] vaccination given Se quential Influenza Vaccine (#1) [facility] Start: 2012 Hepatitis C antibody , confirmatory test Hepatitis C Screening [facility] Start: 2009 HIV screening HIV Screening [facility] Start: 2006 Adolescent depressio n screening assessment Depression Screening (PHQ9) [facility] Start: 2005 Vaccination for tri n papillomavirus HPV Vaccines (1 - 2-dose series) [facility] Start: 1997 History and physical examination, annual for health maintenance Wellness Visit [facility] Start: 1994 Screening for malign ant neoplasm of cervix Pap Smear [facility] Start: 1994 Tetanus vaccination Tetanus: Every 1 0yrs [facility] Procedure on tissue specimen Tis kyara Exam Pathology and Cytology STAT Release Upon Ordering for 1 Occurrences starting 06/22/2020 [facility] Comment on above: Release Upon Orderin g for 1 Occurrences starting 06/22/2020 Payers Date Payer Category Payer Unknown [employer] PPO [id number] 2019-Present [id number] 2019 Unknown [id number] 1994 Unknown [id number] [id number] 1994 Unknown [id number] 2.16.840.1.224569.3.579.2.903 1994 Unknown [id number] 2.16.840.1.333336.3.579.2.593 1994 Unknown [id number] 2.16.840.1.467904.3.579.2.593 1994 Unknown [id number] 2.16.840.1.448307.3.579.2.593 1994 Unknown [id number] 2.16.840.1.439909.3.579.2.593 1994 Unknown [id number] 2.16.840.1.284434.3.579.2.1259 1994 Unknown [id number] 2.16.840.1.034879.3.579.2.9 1994 Unknown [id number] 2.16.840.1.977438.3.579.2.1258 1994 Unknown [id number] 2.16.840.1.199942.3.579.2.1258 1994 Unknown [id number] 2.16.840.1.540249.3.579.2.1258 1994 Unknown [id number] 2.16.840.1.203096.3.579.2.1258 1994 Unknown [id number] 2.16.840.1.839982.3.579.2.1258 1994 Unknown [id number] 2.16.840.1.816815.3.579.2.9 1994 Unknown [id number] 2.16.840.1.478581.3.579.2.1258 1994 Unknown [id number] 2.16.840.1.050564.3.579.2.1258 1994 Unknown [id number] 2.16.840.1.611842.3.579.2.9 1994 Unknown [id number] 2.16.840.1.810179.3.579.2.9 1959 Unknown [id number] Social History Date Type Detail Facility Start: 06-23-2020 End: 07-08-2020 Tobacco smoking status CAIS Never smoker [facility] Start: 06-23-2020 End: 07-08-2020 Tobacco use and exposure Never used [facility] Start: 06-23-2020 End: 07-08-2020 Alcohol intake Ex-drinker (finding) [facility] Sex Assigned At Not on file [place] [facility] Exposure to SARS-CoV-2 (event) Not sure [facility] Discharge Instructions * Instructions* Magdi Salazar MD - 06/23/[address] Salazar (Hernia Repair/Gallbladder) [phone] No Lifting, no bending, no pushing May [...] A MEDICAL NATURE, CALL YOUR DOCTOR/EMERGENCY ROOM. [facility] EMERG[facility] [phone] Make a follow-up appointment with your surgeon. Post Operative Instructions Dr Salazar (Hernia Repair/Gallbladder) [phone] No Lifting, no bending, no pushing May [...] A MEDICAL NATURE, CALL YOUR DOCTOR/EMERGENCY ROOM. [facility] [phone] Make a follow-up appointment with your surgeon. documented in this encounter* Attachments The following attachments cannot be sent through Care Everywhere. * Abdominal Pain (Japanese) documented in this encounter Assessments Diagnosis Acute appendicitis with localized peritonitis, without perforation, abscess, or gangrene- Primary Diagnosis Abdominal pain, unspecified abdominal location- Primary Advance Directives No Advanced Directives Records FoundDocuments on File Type Date Recorded Patient Proteomics Scientist Expl anation Advance Directives and Livin g Will 06/22/2020 1:08 PM Documents on File Type Date Recorded Patient Proteomics Scientist Expl anation Advance Directives and Livin g [...] ion and content) Patient's name Mele Thompson, [facility] #[id number] Age [age] years old date of 1995 [...] ED Notes (unrecognized secti on and content) [facility] ED Attending Note: NAME: Mele Thompson 24 y.o. CSN: [id number] PCP: Physician No History: Chief Complaint: Abdominal [...] file Gets together: Not on file Attends rastafari service: Not on file Active member of [...] Procedure Abnormality Status --------- ------ CBC Auto Differential[[id number]] Abnormal Final result Please view results for [...] a case request, and contact the nurse health data administrator sr. consultant. Patient is to be kept n.p.o. He would like 3.375 of Zosyn given to the patient. He would like the patient admitted to his service. Clinical Impression: 1. Acute appendicitis with localized peritonitis, without perforation, abscess, or gangrene Disposition: hospitalize to Operating Room Andrey Valdez M.D. Attending Physician [facility] 06/22/2020 Portions of this note [...] and stable at dc. ED PROVIDER NOTE [facility] EM[facility]Y [facility] NAME: Mele Thompson AGE: 24 y.o. : 1995 VISIT DATE: 07/08/2020 CSN: [id number] PCP: Physician No Chief Complaint Patient presents [...] file Gets together: Not on file Attends rastafari service: Not on file Active member of [...] Colorless, Yellow Clarity, Urine Clear Clear Specific [place] 1.020 1.005 - 1.025 pH, Urine 7.5 [...] Magdi Salazar MD. Specialty: General Surgery [facility] [id number] Contact information for after-discharge care Follow-up information [...] change in drainage on op-sites. MELE THOMPSON [id number] 1995 DATE 06/22/2020 OPERATIVE REPORT SURGEON MAGDI [...] utilizing 0 Ethibond with an open technique. Scoana-hr-xamyk suture was placed after complete desufflation of [...] appendicitis. MAGDI SALAZAR MD D 06/22/2020 20:33 [id number] T 06/23/2020 01:38 VMT/MODL Umbilical dressing saturated with light pink serous drainage.Pubic dressing 1/2 saturated with shadow of pink drainage. Brief Post Operative Note Patient Name: Mele Thompson : 1995 (24 y.o.) Date of Service: 06/22/2020 [facility]: [id number] Procedure(s): APPENDECTOMY LAPAROSCOPIC Pre-Operative Diagnoses: RIGHT SIDED ABDOMINAL PAIN - ACUTE APPENDICITIS Post-Operative Diagnoses: ACUTE RETROCECAL APPENDICITIS Surgeon(s) and Role: * Magdi Salazar MD - Primary Anesthesiologist: Jaylin Buckley MD Powder Nipper: Tanisha Varghese RN Scrub Person Assist: Jadyn [...] previous ECG Rhythm: sinus rhythm BPM: 85 [place] Interval: 108 QRS Interval: 82 QT Interval: 426 Clinical impression: non-specific ECG documented in this encounter INFORMATION SOURCE (unrecogn ized section and content) DATE CREATED AUTHOR 07/13/2020 [facility] DATE CREATED AUTHOR AUTHOR'S ORGANIZ ATION 01/28/2023 [facility] DATE CREATED AUTHOR AUTHOR'S ORGANIZ ATION 05/31/2024 [facility] EPIC FOR RECORDS PERTAINING TO [...] BE BASED ON THE PRIMARY CLINICAL RECORDS. [facility] [employer] [facility]. provides no warranty or guarantee of the accuracy or completeness of information in this document.
[2024-06-01 12:07] VITALS: BP 131/79; PULSE 123
== END 2024-06-01 12:44 ==
LOC: FBCO 07:09 → FBC 12:00
PROVIDERS: PCP Obstetrics & Gynecology; Visit Provider Obstetrics & Gynecology
DX: O26.893 Other specified pregnancy related conditions, third trimester (principal)
CPT/HCPCS: 59025

== ENCOUNTER 2024-06-05 05:04 | Inpatient (IN) | payer BC, SELFPAY ==
[2024-06-05] VITALS (27 sets, daily range): BP systolic 114–164; BP diastolic 59–86; PULSE 88–137; TEMP 36.4–36.7
--- OUTSIDE RECORDS SUMMARY | 2024-06-05 05:09 | XMS_ITS | CCD ---
Author Organization [facility] Care Team Providers Care Pilot Can Router Name Role Phone No, Physician Primary Care Provider Unavailabl e TRAY, PHYSICIAN Primary Care Unavailable MAGDI SALAZAR Consulting Moon SALAZAR, MAGDI REYNOSO Attending MAGDI Dunlap Admitting Unamalick FELIZ, PHYSICIAN Primary Care Unavailable KATE MENDOZA Attending Unavailable KATE MENDOZA Admitting Unavailable REQUEST, DR FREEDMAN LISTED Primary Care Unavaila ble REINECK, DR STEW Wheeler Admitting Unavailabl e REINECK, DR STEW Wheeler Attending Unavailabl e JOSTINCHJS ., SERGIO VASQUEZ Consulting Unavailabl e STRAWSER, DEYVI Consulting Unavailable REQUEST, NONE LISTED Primary Care Unavaila ble CRISTI ., DR HUGHES Admitting Unavailable CRISTI ., DR HUGHES Consulting Unavailable CRISTI ., DR HUGHES Attending Unavailable REQUEST, NONE LISTED Primary Care Unavaila ble CRISTI ., DR HUGHES Consulting Unavailable CRISTI ., DR HUGHES Attending Unavailable CRISTI ., DR HUGHES Admitting Unavailable REQUEST, NONE LISTED Primary Care Unavaila ble REQUEST, DR FREEDMAN LISTED Consulting Unavaila ble CRISTI ., DR HUGHES Admitting Unavailable CRISTI ., DR HUGHES Attending Unavailable CRISTIELLEN Attending Unavailable DALYKALPANA CARDONA Attending Unavailable CRISTI, ELLEN Attending Unavailable KALPANA KAUFFMAN Attending Unavailable CRISTI, ELLEN Attending Unavailable KALPANA KAUFFMAN Attending Unavailable CRISTI, ELLEN Attending Unavailable CRISTI, ELLEN Attending Unavailable CRISTI, ELLEN Attending Unavailable CRISTI, ELLEN Attending Unavailable CRISTIELLEN Attending Unavailable Unavailable Primary Care Provider Unavailabl e Medications Current Medications Medication Drug Class(es) Dates Sig (Normalized) Sig (Original) alpha-tocopherol acetate 30 unt / ascorbic acid 100 mg / beta carotene 1000 unt / calcium carbonate 200 mg / calcium pantothenate 7 mg / cholecalciferol 400 unt / docusate sodium 25 mg / ferrous fumarate 29 mg / folic acid 1 mg / niacinamide 15 mg / pyridoxine hydrochloride 20 mg / riboflavin 3 mg / thiamine 3 mg / vitamin b12 0.012 mg / zinc oxide 20 mg oral tablet (3 sources) Vitamin B12, Vitamin D, Vitamin C Vit-DSS-Fe Fum-FA ( 19) 29-1 MG tablet Take by mouth Active Blood Glucose Monitoring Suppl (D-Care Glucometer) w/Device kit (3 sources) Start: 03-13-2024 End: 03-13-2025 Blood Glucose Monitoring Suppl (D-Care Glucometer) w/Device kit Indications: Gestational diabetes mellitus (GDM), antepartum, gestational diabetes method of control unspecified , Elevated glucose tolerance test 1 kit Daily Use four times daily to check FSBS. In the morning prior to breakfast & 1 hour after each meal for a total of 4times daily. 1 kit 03/13/2024 03/13/2025 Active isopropyl alcohol 0.7 ml/ml medicated pad (3 sources) Start: 03-13-2024 Alcohol Swabs (Alcohol Prep Pad) 70 % pads Indications: Gestational diabetes mellitus (GDM), antepartum, gestational diabetes method of control unspecified , Elevated glucose tolerance test Apply 1 Pad topically Daily Use four times daily to check FSBS. 150 each 3 03/13/2024 Active traMADol hydrochloride 50 mg oral tablet (1 [...] in early , unspecified] Onset: 01-04-2023 Episodic Other and delivery including normal (2 sources) Third trimester ; Translations: [Encounter for supervision of normal , unspecified, third trimester] 05-29-2024 Episodic Residual codes; unclassified (1 source) 9 weeks gestation of ; Translations: [9 WEEKS GESTATION OF ] Onset: 01-06-2023 Episodic Residual codes; unclassified (1 source) Type O blood, Rh negative; Translations: [TYPE O BLOOD RH NEGATIVE] Onset: 01-06-2023 Episodic Residual codes; unclassified (2 sources) Gestation period, 39 weeks; Translations: [39 weeks gestation of ] 05-29-2024 Episodic Unclassified (1 source) Acute appendicitis with localized peritonitis, without perforation or gangrene; Translations: [Acute appendicitis with localized peritonitis, without perforation, abscess, or gangrene] Results Test Name Value Interpretation Reference Range Facility Urinalysis macro (dipstick) panel (U)on 05-29-2024 Bilirubin, UA Negative Negative - 4(70) +++ mg/dL [facility] Blood, UA Negative Negative - 50 Luis/mcL [facility] Clarity, UA Clear [facility] Color, UA Colorless [facility] Glucose, UA Negative Negative - 1999(110) ++++ mg/dL [facility] Interpretation and review of laboratory results Abnormal [facility] Ketones, UA Negative Negative - 160(16) ++++ mg/dL [facility] Leukocytes, UA Trace Negative - 500+++ Raul/mcL [facility] Nitrite, UA Negative Negative - Positive [facility] pH, UA 5.5 5 - 9 [facility] Protein, UA Negative Negative - 1999(20) ++++ mg/dL [facility] Spec Grav, UA 1.010 1 - 1.03 [facility] Urobilinogen, UA 0.2 0.2 - 12 mg/dL [facility] PREG QUANT HCGon 01-19-2023 HCG QUANT 67 mIU/mL Normal [facility] Comment on above: Performed By: #### P REGQNT #### [facility] [address] [place] [address] Dr. Tammi Fleming HCG RANGE SEE BELOW Normal [facility] Comment on above: Result Comment: 5-50 0.2-1 WEEK 50-500 1-2 WEEKS 100-5,000 2-3 WEEKS 500-10,000 3-4 WEEKS 1,000-50,000 4-5 WEEKS 10,000-100,000 5-6 WEEKS 15,000-200,000 6-8 WEEKS 10,000-100,000 2-3 MONTHS Performed By: #### P REGQNT #### [facility] [address] [place] [address] Dr. Tammi Fleming PREG QUANT HCGon 01-10-2023 HCG QUANT 231 mIU/mL Normal [facility] Comment on above: Performed By: #### P REGQNT #### [facility] [address] [place] [address] Dr. Tammi Fleming HCG RANGE SEE BELOW Normal [facility] Comment on above: Result Comment: 5-50 0.2-1 WEEK 50-500 1-2 WEEKS 100-5,000 2-3 WEEKS 500-10,000 3-4 WEEKS 1,000-50,000 4-5 WEEKS 10,000-100,000 5-6 WEEKS 15,000-200,000 6-8 WEEKS 10,000-100,000 2-3 MONTHS Performed By: #### P REGQNT #### [facility] [address] [place] [address] Dr. Tammi Fleming CBC AUTO DIFFon 01-04-2023 BASO # 0.0 103/ul Normal 0.0-0.1 [facility] Comment on above: Performed By: #### C BC #### [facility] [address] [place] [address] Dr. Tammi Fleming Basophils/100 WBC (Bld) 0.3 % Normal 0.2-2.[address] [facility] Comment on above: Performed By: #### C BC #### [facility] [address] [place] [address] Dr. Tammi Fleming EO # 0.1 103/ul Normal 0.0-0.7 [facility] Comment on above: Performed By: #### C BC #### [facility] [address] [place] [address] Dr. Tammi Fleming Eosinophils/100 WBC (Bld) 0.8 % Critically low 0.9-7.0 [facility] Comment on above: Performed By: #### C BC #### [facility] [address] [place] [address] Dr. Tammi Fleming Erythrocyte distribution width (RBC) [Ratio] 12.0 % Normal 11.0-15.0 [facility] Comment on above: Performed By: #### C BC #### [facility] [address] [place] [address] Dr. Tammi Fleming Hematocrit (Bld) [Volume fraction] 42.6 % Normal 36.0-48.0 [facility] Comment on above: Performed By: #### C BC #### [facility] [address] [place] [address] Dr. Tammi Fleming Hemoglobin (Bld) [Mass/Vol] 14.5 g/dL Normal 12.0-16.0 [facility] Comment on above: Performed By: #### C BC #### [facility] [address] [place] [address] Dr. Tammi Fleming IG # 0.02 10e3/ul Normal 0.00-0.03 [facility] Comment on above: Performed By: #### C BC #### [facility] [address] [place] [address] Dr. Tammi Fleming IG % 0.3 % Normal 0.0-0.[address] [facility] Comment on above: Performed By: #### C BC #### [facility] [address] [place] [address] Dr. Tammi Fleming LYMPH # 1.6 103/ul Normal 1.2-3.[address] [facility] Comment on above: Performed By: #### C BC #### [facility] [address] [place] [address] Dr. Tammi Fleming Lymphocytes/100 WBC (Bld) 19.9 % Critically low 20.5-60.[address] [facility] Comment on above: Performed By: #### C BC #### [facility] [address] [place] [address] Dr. Tammi Fleming MANUAL DIFF REQ NO Normal The [place] Comment on above: Performed By: #### C BC #### [facility] [address] [place] [address] Dr. Tammi Fleming MCH (RBC) [Entitic mass] 29.8 pg Normal 26.7-34.0 [facility] Comment on above: Performed By: #### C BC #### [facility] [address] [place] [address] Dr. Tammi Fleming MCHC (RBC) [Mass/Vol] 34.0 g/dL Normal 29.9-35.[address] [facility] Comment on above: Performed By: #### C BC #### [facility] [address] [place] [address] Dr. Tammi Fleming MCV (RBC) [Entitic vol] 87.7 fL Normal 81.0-99.0 [facility] Comment on above: Performed By: #### C BC #### [facility] [address] [place] [address] Dr. Tammi Fleming MONO # 0.4 103/ul Normal 0.3-0.[address] [facility] Comment on above: Performed By: #### C BC #### [facility] [address] [place] [address] Dr. Tammi Fleming Monocytes/100 WBC (Bld) 5.0 % Normal 1.7-12.[address] [facility] Comment on above: Performed By: #### C BC #### [facility] [address] [place] [address] Dr. Tammi Fleming NEUT # 5.8 103/ul Normal 1.4-6.[address] [facility] Comment on above: Performed By: #### C BC #### [facility] [address] [place] [address] Dr. Tammi Fleming Neutrophils/100 WBC (Bld) 73.7 % Normal 43.0-75.0 [facility] Comment on above: Performed By: #### C BC #### [facility] [address] [place] [address] Dr. Tammi Fleming Platelet mean volume (Bld) [Entitic vol] 12.1 fL Normal 9.5-13.5 [facility] Comment on above: Performed By: #### C BC #### [facility] [address] [place] [address] Dr. Tammi Fleming PLT 184 103/ul Normal 150-[address] [facility] Comment on above: Performed By: #### C BC #### [facility] [address] [place] [address] Dr. Tammi Fleming RBC 4.86 106/ul Normal 4.20-5.40 [facility] Comment on above: Performed By: #### C BC #### [facility] [address] [place] [address] Dr. Tammi Fleming WBC 7.9 103/ul Normal 4.0-11.0 [facility] Comment on above: Performed By: #### C BC #### [facility] [address] [place] [address] Dr. Tammi Fleming ER URINE PROFILEon 3 Bilirubin Ql (U) Negative Normal NEGATIVE [facility] Comment on above: Performed By: #### NAGA SORTORO #### [facility] [address] [place] [address] Dr. Tammi Fleming Clarity (U) CLEAR Normal CLEAR [facility] Comment on above: Performed By: #### ERVIN SORTOICRO #### [facility] [address] [place] [address] Dr. Tammi Fleming Color (U) LT. YELLOW Normal YELLOW [facility] Comment on above: Performed By: #### ERVIN SORTOICRO #### [facility] [address] [place] [address] Dr. Tammi Fleming ERUAHD A micrscopic examina tion will be performed if indicated. Normal [facility] Comment on above: Performed By: #### Angela CHRISTIE UMICRO #### [facility] [address] [place] [address] Dr. Tammi Fleming Glucose Ql (U) Negative Normal NEGATIVE [facility] Comment on above: Performed By: #### Angela CHRISTIE UMICRO #### [facility] [address] [address] [address] Tammi Fleming Hemoglobin Ql (U) LARGE Abnormal NEGATIVE [facility] Comment on above: Performed By: #### Angela CHRISTIE, UMICRO #### [facility] [address] [address] [address] Tammi Fleming Ketones Ql (U) Negative Normal NEGATIVE [facility] Comment on above: Performed By: #### Angela CHRISTIE UMICRO #### [facility] [address] [address] [address] Tammi Fleming LEUKOCYTES Negative Normal NEGATIVE [facility] Comment on above: Performed By: #### Angela CHRISTIE UMICRO #### [facility] [address] [place] [address] Dr. Tammi Fleming Nitrite Ql (U) Negative Normal NEGATIVE [facility] Comment on above: Performed By: #### Angela CHRISTIE UMICRO #### [facility] [address] [place] [address] Dr. Tammi Fleming pH (U) 7.0 [pH] Normal 5-9 [facility] Comment on above: Performed By: #### Angela CHRISTIE UMICRO #### [facility] [address] [place] [address] Dr. Tammi Fleming SPEC GRAVITY <=1.005 Abnormal 1.005-<=1.025 [facility] Comment on above: Performed By: #### Angela CHRISTIE UMICRO #### [facility] [address] [place] [address] Dr. Tammi Fleming UA PROTEIN Negative Normal NEGATIVE/ TRACE [facility] Comment on above: Performed By: #### Angela CHRISTIE UMICRO #### [facility] [address] [place] [address] Dr. Tammi Fleming UR MICRO IND INDICATED Normal [facility] Comment on above: Performed By: #### Angela CHRISTIE UMICRO #### [facility] [address] [place], [place] [id number] Dr. Tammi Fleming Urobilinogen Qn (U) 0.2 {Elder'U}/dL Normal 0.2 - 1.[address] [facility] Comment on above: Performed By: #### E SHAHNAZ UMICRO #### [facility] [address] [place] [address] Dr. Tammi Fleming PREG QUANT HCGon 01-04-2023 HCG QUANT 4523 mIU/mL Normal [facility] Comment on above: Performed By: #### P REGQNT #### [facility] [address] [place] [address] Dr. Tammi Fleming HCG RANGE SEE BELOW Normal [facility] Comment on above: Result Comment: 5-50 0.2-1 WEEK 50-500 1-2 WEEKS 100-5,000 2-3 WEEKS 500-10,000 3-4 WEEKS 1,000-50,000 4-5 WEEKS 10,000-100,000 5-6 WEEKS 15,000-200,000 6-8 WEEKS 10,000-100,000 2-3 MONTHS Performed By: #### P REGQNT #### [facility] [address] [place] [address] Dr. Tammi Fleming URINE MICROSCOPIC ONLYon BACTERIA TRACE Abnormal NONE SEEN [facility] Comment on above: Performed By: #### Angela CHRISTIE UMICRO #### [facility] [address] [place] [address] Dr. Tammi Fleming Bacteria identified Cx Nom (U) NOT INDICATED Normal [facility] Comment on above: Performed By: #### Angela CHRISTIE UMICRO #### [facility] [address] [place] [address] Dr. Tammi Fleming CAST NONE SEEN Normal NONE SEEN [facility] Comment on above: Performed By: #### Angela CHRISTIE UMICRO #### [facility] [address] [place] [address] Dr. Tammi Fleming Crystals LM Nom (Urine sed) NONE SEEN Normal NONE SEEN [facility] Comment on above: Performed By: #### Angela CHRISTIE UMICRO #### [facility] [address] [address] [address] Tammi Fleming Epithelial cells LM Ql (Urine sed) NONE SEEN Normal NONE SEEN /RARE [facility] Comment on above: Performed By: #### CIRILO SORTO #### [facility] [address] [address] [address] Tammi Fleming MUCOUS NONE SEEN Normal NONE SEEN [facility] Comment on above: Performed By: #### NAGA SORTORO #### [facility] [address] [address] [address] Tammi Fleming RBC 2-5 Abnormal 0-2 [facility] Comment on above: Performed By: #### CIRILO SORTO #### [facility] [address] [address] [address] Tammi Fleming WBC NONE SEEN Normal NONE SEEN [facility] Comment on above: Performed By: #### CIRILO SORTO #### [facility] [address] [address] [address] Tammi Fleming US PREG TVon 01-04-2023 [...] by: DEYVI FELDER Date: 2023-01-04 18:08 Normal [facility] BMPon 07-08-2020 Anion gap [Moles/Vol] 11 mmol/L 10 - 20 mmol/L [facility] Calcium [Mass/Vol] 9.5 mg/dL 8.4 - 10. 2 mg/dL [facility] Chloride [Moles/Vol] 109 mmol/L High 98 - 108 mmol/L [facility] Creatinine [Mass/Vol] 0.85 mg/dL 0.40 - 1.10 [facility] GFR/1.73 sq M predicted among non-blacks MDRD (S/P/Bld) [Vol rate/Area] The eGFR should be used for monitoring renal function only and not for medication dosing. [facility] GFR/1.73 sq M.predicted CKD-EPI (S/P/Bld) [Vol rate/Area] 96 >=60 mL/min/1.73 m2 [facility] Glucose [Mass/Vol] 95 mg/dL 65 - 99 mg/dL [facility] HCO3 [Moles/Vol] 23 mmol/L 21 - 32 mmol/L [facility] Interpretation and review of laboratory results Abnormal [facility] Potassium [Moles/Vol] 3.5 mmol/L 3.5 - 5.1 mmol/L [facility] Sodium [Moles/Vol] 139 mmol/L 135 - 145 mmol/L [facility] Urea nitrogen [Mass/Vol] 10 mg/dL 8 - 25 mg/dL [facility] Urea nitrogen/Creatinin e [Mass ratio] 11.8 mg/mg [facility] CBC WITH AUTO DIFFERENTIALon 07-08-2020 Basophils (Bld) [#/Vol] 0.02 10*3/uL [facility] Basophils/100 WBC (Bld) 0.2 % [facility] Eosinophils (Bld) [#/Vol] 0.04 10*3/uL [facility] Eosinophils/100 WBC (Bld) 0.5 % [facility] Erythrocyte distribution width (RBC) [Entitic vol] 12.0 % 11.6 - 14.8 % [facility] Hematocrit (Bld) [Volume fraction] 43.3 % 36 - 46 % [facility] Hemoglobin (Bld) [Mass/Vol] 14.7 g/dL 12 - 16 g/dL [facility] Immature granulocytes (Bld) [#/Vol] 0.00 10*3/uL [facility] Immature granulocytes/100 WBC (Bld) 0.00 % [facility] Comment on above: The IG parameter is the percentage of metamyelocytes, myelocytes and promyelocytes. An immature granulocyte count (IG) of 1% or more suggests the possibility of infection, an IG count of 3% is very likely related to an infection. Lymphocytes (Bld) [#/Vol] 2.44 10*3/uL [facility] Lymphocytes/100 WBC (Bld) 30.2 % [facility] MCH (RBC) [Entitic mass] 29.2 pg 26 - 34 pg [facility] MCHC (RBC) [Mass/Vol] 33.9 g/dL 31 - 37 g/dL [facility] MCV (RBC) [Entitic vol] 86.1 fL 80 - 100 fL [facility] Monocytes (Bld) [#/Vol] 0.40 10*3/uL [facility] Monocytes/100 WBC (Bld) 5.0 % [facility] Neutrophils (Bld) [#/Vol] 5.17 10*3/uL [facility] Neutrophils/100 WBC (Bld) 64.1 % [facility] Platelet mean volume (Bld) [Entitic vol] 11.8 fL 9.4 - 12.4 fL [facility] Platelets (Bld) [#/Vol] 228 10*3/uL [facility] RBC (Bld) [#/Vol] 5.03 10*6/uL [facility] ealth WBC (Bld) [#/Vol] 8.07 10*3/uL [facility] ealth CT ABDOMEN PELVIS WITH IV CO [...] changes from recent appendectomy. Workstation ID: [id number] [facility] EXAMINATION: CT ABDO MEN PELVIS WITH [...] No acute or aggressive osseous abnormality identified. [facility] 1. No acute infectio us, inflammatory or obstructive process identified in the abdomen or pelvis. 2. Postsurgical changes from recent appendectomy. Workstation ID: [id number] [facility] Hepatic Function Panel (LFT) on 07-08-2020 Albumin [Mass/Vol] 3.8 g/dL 3.2 - 5.2 g/dL [facility] ALP [Catalytic activity/Vol] 71 U/L 40 - 140 U/L [facility] ALT [Catalytic activity/Vol] 31 U/L 14 - 65 U/L [facility] AST [Catalytic activity/Vol] 18 U/L 0 - 45 U/L [facility] Bilirubin [Mass/Vol] 0.3 mg/dL 0 - 1.3 mg/dL [facility] Bilirubin.conjugat ed [Mass/Vol] mg/dL 0 - 0.4 mg/dL [facility] Protein [Mass/Vol] 7.9 g/dL 6 - 8 g/dL [facility] alth Lipaseon 07-08-2020 Lipase [Catalytic activity/Vol] 95 U/L 73 - 393 U/L [facility] Otheron 07-08-2020 Interpretation and review of laboratory results Normal [facility] Extra Tube Hold for add-ons. [facility] Comment on above: Auto resulted. URINALYSISon 07-08-2020 Bacteria Auto Ql (U) Rare Abnormal None Seen /hpf [facility] Bilirubin Ql (U) Negative Negative [facility] Clarity Refractometry automated (U) Clear Clear [facility] Color (U) Yellow Colorless, Yellow [facility] Epithelial cells.squamous Auto (Urine sed) [#/Area] 1 [facility] Glucose Auto test strip (U) [Mass/Vol] Negative Negative mg/dL [facility] Hemoglobin Auto test strip Ql (U) Negative Negative [facility] Interpretation and review of laboratory results Abnormal [facility] Ketones (U) [Mass/Vol] Negative Negative mg/dL [facility] Leukocyte esterase Auto test strip Ql (U) Negative Negative [facility] Nitrite Auto test strip Ql (U) Negative Negative [facility] pH (U) 7.5 [pH] High [facility] Protein (U) [Mass/Vol] Negative Negative mg/dL [facility] Specific gravity (U) [Rel density] 1.020 [facility] Urobilinogen (U) [Mass/Vol] <2.0 <2.0 mg/dL [facility] Microscopic examinat ion is performed on all urinalysis samples and only positive findings are reported. The test for blood on the chemical analytic portion of urinalysis may also be positive due to hemoglobinuria and myoglobinuria and if red blood cells are present they are quantified by microscopic examination. [facility] Urine Pregnancyon 07-08-2020 HCG ( test) Ql (U) Negative Negative [facility] Interpretation and review of laboratory results Normal [facility] CBC WITH AUTO DIFFERENTIALon 06-23-2020 Basophils (Bld) [#/Vol] 0.00 10*3/uL [facility] Basophils/100 WBC (Bld) 0.0 % [facility] Eosinophils (Bld) [#/Vol] 0.00 10*3/uL [facility] Eosinophils/100 WBC (Bld) 0.0 % [facility] Erythrocyte distribution width (RBC) [Entitic vol] 12.2 % 11.6 - 14.8 % [facility] Hematocrit (Bld) [Volume fraction] 37.2 % 36 - 46 % [facility] Hemoglobin (Bld) [Mass/Vol] 12.6 g/dL 12 - 16 g/dL [facility] Immature granulocytes (Bld) [#/Vol] 0.01 10*3/uL [facility] Immature granulocytes/100 WBC (Bld) 0.10 % [facility] Comment on above: The IG parameter is the percentage of metamyelocytes, myelocytes and promyelocytes. An immature granulocyte count (IG) of 1% or more suggests the possibility of infection, an IG count of 3% is very likely related to an infection. Interpretation and review of laboratory results Abnormal [facility] Lymphocytes (Bld) [#/Vol] 0.82 10*3/uL Low [facility] Lymphocytes/100 WBC (Bld) 6.8 % [facility] MCH (RBC) [Entitic mass] 29.3 pg 26 - 34 pg [facility] MCHC (RBC) [Mass/Vol] 33.9 g/dL 31 - 37 g/dL [facility] MCV (RBC) [Entitic vol] 86.5 fL 80 - 100 fL [facility] Monocytes (Bld) [#/Vol] 0.31 10*3/uL [facility] Monocytes/100 WBC (Bld) 2.6 % [facility] Neutrophils (Bld) [#/Vol] 10.86 10*3/uL High [facility] Neutrophils/100 WBC (Bld) 90.5 % [facility] Platelet mean volume (Bld) [Entitic vol] 12.1 fL 9.4 - 12.4 fL [facility] Platelets (Bld) [#/Vol] 197 10*3/uL [facility] RBC (Bld) [#/Vol] 4.30 10*6/uL [facility] ealth WBC (Bld) [#/Vol] 12.00 10*3/uL [facility] CBC WITH AUTO DIFFERENTIALon 06-22-2020 Basophils (Bld) [#/Vol] 0.02 10*3/uL [facility] Basophils/100 WBC (Bld) 0.1 % [facility] Eosinophils (Bld) [#/Vol] 0.00 10*3/uL [facility] Eosinophils/100 WBC (Bld) 0.0 % [facility] Erythrocyte distribution width (RBC) [Entitic vol] 12.0 % 11.6 - 14.8 % [facility] Hematocrit (Bld) [Volume fraction] 40.2 % 36 - 46 % [facility] Hemoglobin (Bld) [Mass/Vol] 14.0 g/dL 12 - 16 g/dL [facility] Immature granulocytes (Bld) [#/Vol] 0.02 10*3/uL [facility] Immature granulocytes/100 WBC (Bld) 0.10 % [facility] Comment on above: The IG parameter is the percentage of metamyelocytes, myelocytes and promyelocytes. An immature granulocyte count (IG) of 1% or more suggests the possibility of infection, an IG count of 3% is very likely related to an infection. Interpretation and review of laboratory results Abnormal [facility] Lymphocytes (Bld) [#/Vol] 1.20 10*3/uL [facility] Lymphocytes/100 WBC (Bld) 5.9 % [facility] MCH (RBC) [Entitic mass] 29.4 pg 26 - 34 pg [facility] MCHC (RBC) [Mass/Vol] 34.8 g/dL 31 - 37 g/dL [facility] MCV (RBC) [Entitic vol] 84.5 fL 80 - 100 fL [facility] Monocytes (Bld) [#/Vol] 0.67 10*3/uL [facility] Monocytes/100 WBC (Bld) 3.3 % [facility] Neutrophils (Bld) [#/Vol] 18.51 10*3/uL [facility] Neutrophils/100 WBC (Bld) 90.6 % [facility] Platelet mean volume (Bld) [Entitic vol] 11.7 fL 9.4 - 12.4 fL [facility] Platelets (Bld) [#/Vol] 223 10*3/uL [facility] RBC (Bld) [#/Vol] 4.76 10*6/uL [facility] WBC (Bld) [#/Vol] 20.42 10*3/uL [facility] COVID-19, MOLECULARon 2019 SARS-COV-2 (BERG ID) Not Detected Normal Not Detected [facility] Comment on above: Result Comment: This test was performed under the FDA's Emergency Use Authorization (EUA). Testing was performed using the [place] ID NOW COVID-19 assay on the ID NOW platform. This test has not been approved for use in asymptomatic patients and its performance in this patient population has not been evaluated. Negative results do not rule out the presence of SARS-CoV-2/COVID-19. Fact sheets for the EUA can be found at the following links: For Healthcare Providers: https://www.fda.gov/media/541420/download For Patients: https://www.fda.gov/media/625395/download Performed By: #### L [id number] #### SH [address] [address] Kenneth Arrieta M.D. [id number] COVID-19, Molecularon 2019 Interpretation and review of laboratory results Normal [facility] SARS-CoV-2 Not Detected Not Detected [facility] Comment on above: This test was perfor med under the FDA's Emergency Use Authorization (EUA). Testing was performed using the [place] ID NOW COVID-19 assay on the ID NOW platform. This test has not been approved for use in asymptomatic patients and its performance in this patient population has not been evaluated. Negative results do not rule out the presence of SARS-CoV-2/COVID-19. Fact sheets for the EUA can be found at the following links: For Healthcare Providers: https://www.Pagevamp.gov/media/326906/download For Patients: https://www.fda.gov/media/237008/download CT ABDOMEN PELVIS WITH IV CO NTRAST [...] seen directed medially within the central anterior owf-jr-djwns pelvis. No bowel obstruction. Some physiologic free [...] is directed medially within the central anterior kfa-tu-sdkan pelvis with no bowel obstruction. 3. Some [...] seen directed medially within the central anterior gdb-ni-tigvt pelvis. No bowel obstruction. Some physiologic free [...] is directed medially within the central anterior wob-gh-axgda pelvis with no bowel obstruction. 3. Some physiologic free fluid in the cul-de-sac. Some small follicles seen in the ovaries bilaterally. Results were called by Dr. Clifford Wilson to Dr. ANDREY VALDEZ on 06/22/2020 at 16:43. Fuze Workstation ID: [id number] [facility] 1. Acute appendiciti s. The appendix is seen just anterior to the right common iliac artery and is distended approaching 9 mm with wall enhancement and surrounding fatty stranding. 2. Moderate amount of fecal matter in the proximal colon. The cecum is directed medially within the central anterior mbw-pg-ocnvo pelvis with no bowel obstruction. 3. Some physiologic free fluid in the cul-de-sac. Some small follicles seen in the ovaries bilaterally. Results were called by Dr. Clifford Wilson to Dr. ANDREY VALDEZ on 06/22/2020 at 16:43. [employer] Workstation ID: [id number] [facility] EXAMINATION: CT ABDO MEN PELVIS WITH [...] seen directed medially within the central anterior kdp-eg-dopby pelvis. No bowel obstruction. Some physiologic free fluid in the cul-de-sac. Some follicles seen in the ovaries bilaterally. The uterus and urinary bladder unremarkable. No acute osseous abnormality. [facility] Comprehensive Metabolic Pane kendra 06-22-2020 Albumin [Mass/Vol] 4.0 g/dL 3.2 - 5.2 g/dL [facility] ALP [Catalytic activity/Vol] 63 U/L 40 - 140 U/L [facility] ALT [Catalytic activity/Vol] 27 U/L 14 - 65 U/L [facility] Anion gap [Moles/Vol] 10 mmol/L 10 - 20 mmol/L [facility] AST [Catalytic activity/Vol] 18 U/L 0 - 45 U/L [facility] Bilirubin [Mass/Vol] 0.5 mg/dL 0 - 1.3 mg/dL [facility] Calcium [Mass/Vol] 9.1 mg/dL 8.4 - 10. 2 mg/dL [facility] Chloride [Moles/Vol] 109 mmol/L High 98 - 108 mmol/L [facility] Creatinine [Mass/Vol] 0.83 mg/dL 0.40 - 1.10 [facility] GFR/1.73 sq M predicted among non-blacks MDRD (S/P/Bld) [Vol rate/Area] The eGFR should be used for monitoring renal function only and not for medication dosing. [facility] GFR/1.73 sq M.predicted CKD-EPI (S/P/Bld) [Vol rate/Area] 98 >=60 mL/min/1.73 m2 [facility] Glucose [Mass/Vol] 96 mg/dL 65 - 99 mg/dL [facility] oHeal HCO3 [Moles/Vol] 25 mmol/L 21 - 32 mmol/L [facility] Potassium [Moles/Vol] 3.7 mmol/L 3.5 - 5.1 mmol/L [facility] Protein [Mass/Vol] 7.8 g/dL 6 - 8 g/dL [facility] alth Sodium [Moles/Vol] 140 mmol/L 135 - 145 mmol/L [facility] Urea nitrogen [Mass/Vol] 10 mg/dL 8 - 25 mg/dL [facility] Urea nitrogen/Creatinin e [Mass ratio] 12.0 mg/mg [facility] ECG 12-LEADon 06-22-2020 Andrey Valdez MD 2019 4:57 PM ECG 12 Lead Date/Time: 06/22/2020 4:51 PM Performed by: Andrey Valdez MD Authorized by: Andrey Valdez MD Interpreted by ED attending physician Comparison: not compared with previous ECG Rhythm: sinus rhythm BPM: 85 [place] Interval: 108 QRS Interval: 82 QT Interval: 426 Clinical impression: non-specific ECG [facility] Lipaseon 06-22-2020 Lipase [Catalytic activity/Vol] 72 U/L Low 73 - 393 U/L [facility] Otheron 06-22-2020 Interpretation and review of laboratory results Abnormal [facility] URINALYSISon 06-22-2020 Bacteria Auto Ql (U) Few Abnormal None Seen /hpf [facility] Bilirubin Ql (U) Negative Negative [facility] th Clarity Refractometry automated (U) Cloudy Abnormal Clear [facility] Color (U) Yellow Colorless, Yellow [facility] Epithelial cells.squamous Auto (Urine sed) [#/Area] 3 [facility] Glucose Auto test strip (U) [Mass/Vol] Negative Negative mg/dL [facility] Hemoglobin Auto test strip Ql (U) Negative Negative [facility] Interpretation and review of laboratory results Abnormal [facility] Ketones (U) [Mass/Vol] 20 Abnormal Negative mg/dL [facility] Leukocyte esterase Auto test strip Ql (U) Negative Negative [facility] Nitrite Auto test strip Ql (U) Negative Negative [facility] pH (U) 7.0 [pH] [facility] Protein (U) [Mass/Vol] Negative Negative mg/dL [facility] Specific gravity (U) [Rel density] 1.020 [facility] Urobilinogen (U) [Mass/Vol] <2.0 <2.0 mg/dL [facility] WBC Auto (Urine sed) [#/Area] 2 [facility] Microscopic examinat ion is performed on all urinalysis samples and only positive findings are reported. The test for blood on the chemical analytic portion of urinalysis may also be positive due to hemoglobinuria and myoglobinuria and if red blood cells are present they are quantified by microscopic examination. [facility] Urine Pregnancyon 06-22-2020 HCG ( test) Ql (U) Negative Negative [facility] Interpretation and review of laboratory results Normal [facility] Vital Signs Date Time Vital Sign Value Performing Clinician Faci lity 05-29-2024 14:03-0400 Body weight 89.87 kg Kalpana HILL Work Phone: [facility] 05-29-2024 14:03-0400 Diastolic blood pressure 70 mm[Hg] Kalpana HILL Work Phone: [facility] 05-29-2024 14:03-0400 Systolic blood pressure 120 mm[Hg] Kalpana HILL Work Phone: [facility] 07-08-2020 15:34-0500 BP Diastolic 79 mm[Hg] [facility] 07-08-2020 15:34-0500 BP Systolic 125 mm[Hg] [facility] 07-08-2020 15:34-0500 Pulse (Heart Rate) 81 /min [facility] 07-08-2020 15:34-0500 Pulse Oximetry 99 % [facility] 07-08-2020 15:34-0500 Respiratory Rate 16 /min [facility] 07-08-2020 13:50-0500 BMI (Body Mass Index) 20.36 kg/m2 [facility] 07-08-2020 13:50-0500 Body Temperature 98.49 [degF] [facility] 07-08-2020 13:50-0500 Body weight 58.97 kg [facility] 07-08-2020 13:50-0500 Height 170.2 cm [facility] 06-23-2020 07:35-0500 Body Temperature 98.01 [degF] [facility] 06-23-2020 07:35-0500 BP Diastolic 68 mm[Hg] [facility] 06-23-2020 07:35-0500 BP Systolic 106 mm[Hg] [facility] 06-23-2020 07:35-0500 Pulse (Heart Rate) 75 /min [facility] 06-23-2020 07:35-0500 Pulse Oximetry 94 % [facility] 06-23-2020 07:35-0500 Respiratory Rate 16 /min [facility] 06-22-2020 14:15-0500 BMI (Body Mass Index) 20.36 kg/m2 [facility] 06-22-2020 14:15-0500 Body weight 58.97 kg Andrey [facility] 06-22-2020 14:15-0500 Height 170.2 cm [place] [facility] Encounters Encounter Date Encounter Type Care Provider Facility Start: 05-29-2024 End: 05-29-2024 flow sheet Kalpana HILL Work Phone: [facility] Comment on above: 39 weeks gestation o f ; Third trimester Start: 05-29-2024 End: 05-29-2024 Bamboo flowsheet Kalpana HILL Work Phone: [facility] Start: 05-29-2024 End: 05-29-2024 Bamboo flowsheet Kalpana HILL Work Phone: [facility] Start: 05-29-2024 End: 05-29-2024 ambulatory KALPANA DALY Not Available Start: 05-15-2024 End: 05-15-2024 ambulatory ELLEN CRISTI Not Available Start: 05-08-2024 End: 05-08-2024 ambulatory ELLEN CRISTI Not Available Start: 04-24-2024 End: 04-24-2024 ambulatory KALPANA DALY Not Available Start: 04-09-2024 End: 04-09-2024 ambulatory ELLEN CRISTI Not Available Start: 03-12-2024 End: 03-12-2024 ambulatory KALPANA DALY Not Available Start: 02-27-2024 End: 02-27-2024 [...] 07-08-2020 Emergency department patient visit PHYSICIAN NO [facility] Start: 07-08-2020 End: 07-08-2020 Emergency department patient visit Kate Mendoza Work Phone: [facility] Emergency Department Comment on above: Abdominal pain, unsp ecified abdominal location (Primary Dx) Start: 06-22-2020 End: 06-23-2020 Patient encounter procedure PHYSICIAN NO [facility] Start: 06-22-2020 End: 06-23-2020 Emergency department patient visit Andrey Valdez Work Phone: [facility] Med Surg Comment on above: Acute appendicitis w ith localized peritonitis, without perforation, abscess, or gangrene (Primary Dx) Procedures Date Procedure Procedure Detail Performing Clinician Start: 05-29-2024 Urnls dip stick/tablet rgnt non-auto w/o micrscp Kalpana HILL Work Phone: Start: 07-08-2020 Ct abdomen & pelvis w/contrast [...] count with white cell differential, automated Andrey Wu Work Phone: Start: 06-22-2020 Complete blood count with white cell differential, manual Andrey Valdez Work Phone: Start: 06-22-2020 Comprehensive metabolic 2000 panel - Serum or Plasma Andrey Valdez Work Phone: Start: 06-22-2020 Lipase [Enzymatic activity/volume] in Serum or Plasma [place] Valdez Work Phone: Start: 06-22-2020 Choriogonadotropin ( test) [Presence] in Urine Andrey Valdez Work Phone: Start: 06-22-2020 Urinalysis Andrey Valdez Work Phone: Plan of Treatment Date Care Activity Detail Author Start: 06-04-2024 End: 06-04-2024 Patient encounter procedure 06/04/2024 9:30 AM EDT Routine [facility] [address] [place] [id number] Ellen Rod DO [address] [address] [facility] Start: 05-29-2024 End: 05-29-2024 Patient encounter procedure 05/29/2024 2:10 PM EDT Routine [facility] [address] [place] [address] Kalpana Kauffman PA [address] [place], [place] [id number] Arrived [facility] Comment on above: Arrived Start: 04-22-2020 Influenza vaccination given Se quential Influenza Vaccine (#1) [facility] Start: 2012 Hepatitis C antibody , confirmatory test Hepatitis C Screening [facility] Start: 2009 HIV screening HIV Screening [facility] Start: 2006 Adolescent depressio n screening assessment Depression Screening (PHQ9) [facility] Start: 2005 Vaccination for tri n papillomavirus HPV Vaccines (1 - 2-dose series) [facility] Start: 1997 History and physical examination, annual for health maintenance Wellness Visit [facility] Start: 1994 Screening for malign ant neoplasm of cervix Pap Smear [facility] Start: 1994 Tetanus vaccination Tetanus: Every 1 0yrs [facility] Procedure on tissue specimen Tis kyara Exam Pathology and Cytology STAT Release Upon Ordering for 1 Occurrences starting 06/22/2020 [facility] Comment on above: Release Upon Orderin g for 1 Occurrences starting 06/22/2020 Payers Date Payer Category Payer Unknown BCBS BCBS [id number] 2023-Present [phone] [address] [place] [address] [id number] 2019 Unknown MMO MED [employer] S UPERMED PPO [id number] 2019-Present [id number] 2019 Unknown [id number] 1994 Unknown [id number] 1994 Unknown [id number] [id number] 1994 Unknown [id number] [id number]3 1994 Unknown [id number] 2.16.840.1.917035.3.579.2.593 1994 Unknown [id number] 2.16.840.1.412103.3.579.2.593 1994 Unknown [id number] 2.16.840.1.373126.3.579.2.593 1994 Unknown [id number] 2.16.840.1.587290.3.579.2.1259 1994 Unknown [id number] 2.16.840.1.618626.3.579.2.1259 1994 Unknown [id number] 2.16.840.1.432089.3.579.2.1259 1994 Unknown [id number] 2.16.840.1.872713.3.579.2.1259 1994 Unknown [id number] 2.16.840.1.803313.3.579.2.9 1994 Unknown [id number] 2.16.840.1.617422.3.579.2.9 1994 Unknown [id number] 2.16.840.1.173121.3.579.2.1259 1994 Unknown [id number] 2.16.840.1.012401.3.579.2.1259 1994 Unknown [id number] 2.16.840.1.018912.3.579.2.9 1994 Unknown [id number] 2.16.840.1.054366.3.579.2.1259 1994 Unknown [id number] 2.16.840.1.440861.3.579.2.9 1994 Unknown [id number] [id number] 1959 Unknown [id number] Social History Date Type Detail Facility Start: 06-23-2020 End: 03-12-2024 Tobacco smoking status MOIS Never smoker [facility] are Start: 06-23-2020 End: 03-12-2024 Tobacco use and exposure Never used [facility] Start: 06-23-2020 End: 05-29-2024 Alcohol intake Ex-drinker (finding) [facility] Start: 1994 Sex Assigned At Not on file [facility] Exposure to SARS-CoV-2 (event) Not sure [facility] Start: 03-12-2024 History of Social function [facility] Start: 03-12-2024 Tobacco use panel [facility] Start: 09-12-2023 [facility] Medical Equipment Procedure Code Equipment Code Equipment Origin al Text Equipment Identifier Dates 1 each by Other route if needed Start: 04-14-2024 History of Present illness Narrative 05-29-2024 SERGIO Gar - 05/29/2024 2:10 PM EDT Note Date & Type Note Facility 05-29-2024 History of Presen t illness Narrative Reason for Appointment: Patient ID: Mele Doll is a 28 y.o. female who presents for Routine Visit Patient presents today for Return OB appointment. MEDICATIONS Current Outpatient Medications Medication Instructions Alcohol Swabs (Alcohol Prep Pad) 70 % pads 1 Pad, Topical, Daily, Use four times daily to check FSBS. Blood Glucose Monitoring Suppl (D-Care Glucometer) w/Device kit 1 kit, Does not apply, Daily, Use four times daily to check FSBS. In the morning prior to breakfast & 1 hour after each meal for a total of 4times daily. Vit-DSS-Fe Fum-FA ( 19) 29-1 MG tablet Oral True Metrix Blood Glucose Test test strip 1 each, Other, As needed ALLERGIES No Known Allergies PROBLEMS Active Ambulatory Problems Diagnosis Date Noted No Active Ambulatory Problems Resolved Ambulatory Problems Diagnosis Date Noted No Resolved Ambulatory Problems No Additional Past Medical History HISTORY PAST MEDICAL HISTORY SOCIAL HISTORY History reviewed. No pertinent past medical history. Social History Tobacco Use Smoking status: Never Smokeless tobacco: Never Substance Use Topics Alcohol use: Not Currently Drug use: Never FAMILY HISTORY No family history on file. SURGICAL HISTORY Past Surgical History: Procedure Laterality Date APPENDECTOMY 05/2020 REVIEW OF SYSTEMS Review of Systems: Review of Systems Constitutional: Negative. HENT: Negative. Eyes: Negative. Respiratory: Negative. Cardiovascular: Negative. Gastrointestinal: Negative. Genitourinary: Negative. Musculoskeletal: Negative. Skin: Negative. Neurological: Negative. All other systems reviewed and are negative. Hematological: Negative. Endocrine: Negative. Allergic/Immunologic: Negative. OBJECTIVE Objective: Physical Exam Constitutional: Appearance: Normal appearance. She is well-developed and normal weight. HENT: Head: Normocephalic. Cardiovascular: Rate and Rhythm: Normal rate and regular rhythm. Pulses: Normal pulses. Pulmonary: Effort: Pulmonary effort is normal. Breath sounds: Normal breath sounds. Abdominal: General: Bowel sounds are normal. There is no distension. Palpations: Abdomen is soft. Tenderness: There is no abdominal tenderness. There is no guarding or rebound. Musculoskeletal: General: No swelling. Normal range of motion. Right lower leg: No edema. Left lower leg: No edema. Neurological: General: No focal deficit present. Mental Status: She is alert and oriented to person, place, and time. Skin: General: Skin is warm and dry. Psychiatric: Mood and Affect: Mood normal. Behavior: Behavior normal. Thought Content: Thought content normal. Judgment: Judgment normal. Vitals and nursing note reviewed. Exam conducted with a cloth finishing range back tender present. Vitals: There is no height or weight on file to calculate BMI. BP: 120/70 Patient's last menstrual period was 08/29/2023. ASSESSMENT & PLAN ICD-10-CM 1. 39 weeks gestation of Z3A.39 POCT urinalysis dipstick manually resulted 2. Third trimester Z34.93 POCT urinalysis dipstick manually resulted Return OB: Patient presents today for a routine obstetrics appointment. Patient is currently 39w1d . Patient states she is doing well but has complaints of being tired due to current . Patient has verbalizes frequent movement. labor precautions was discussed/given and patient was instructed to perform kick counts three times a day. Orders Placed This Encounter Procedures POCT urinalysis dipstick manually resulted Follow Up: Patient is to return to office in 1 week for routine OB appointment. Documented by Sarah Andino LPN on behalf of: SERGIO Gar documented in this encounter [facility] Healthcare Evaluation note Note Date & Type Note Facility Evaluation note Diagnosis 39 weeks gestation of Third trimester state, incidental documented in this encounter [facility] Healthcare Discharge Instructions * Instructions* Magdi Salazar MD - 06/23/[address] Salazar (Hernia Repair/Gallbladder) [phone] No Lifting, no bending, no pushing May [...] A MEDICAL NATURE, CALL YOUR DOCTOR/EMERGENCY ROOM. [facility] EMERGENCY ROOM [phone] Make a follow-up appointment with your surgeon. Post Operative Instructions Dr Salazar (Hernia Repair/Gallbladder) [phone] No Lifting, no bending, no pushing May [...] A MEDICAL NATURE, CALL YOUR DOCTOR/EMERGENCY ROOM. [facility] EMERGENCY ROOM [phone] Make a follow-up appointment with your surgeon. documented in this encounter* Attachments The following attachments cannot be sent through Care Everywhere. 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 Advance Directives and Pancho wheeler Will 06/22/2020 1:08 PM Documents on File Type Date Recorded Patient Mechanical Insulator Sheila cooper Advance Directives and Pancho wheeler Will 07/08/2020 2:09 PM Summary Purpose Family History No Family History Records FoundNo Family History Records FoundNo Family History Records Found Additional Source Comments Reason for Visit (unrecogniz ed section and content) Reason Comments Abdominal Pain Status Reason Specialty Diagnoses / Procedures Referre d By Contact Referred To Contact Diagnoses Acute appendicitis with localized peritonitis, without perforation, abscess, or gangrene Reason Comments Routine Visit Magdi Salazar MD - 06/22/2020 6:46 PM EST H&P Notes (unrecognized sect ion and content) Patient's name Mele Doll, [facility] #[id number] Age [age] years old date of 1995 [...] ED Notes (unrecognized secti on and content) [facility] ED Attending Note: NAME: Mele Doll 24 y.o. CSN: [id number] PCP: Physician No History: Chief Complaint: Abdominal [...] file Gets together: Not on file Attends church service: Not on file Active member of [...] Procedure Abnormality Status --------- ------ CBC Auto Differential[[id number]] Abnormal Final result Please view results for [...] a case request, and contact the nurse accounting administrator recreation therapy teacher. Patient is to be kept n.p.o. He would like 3.375 of Zosyn given to the patient. He would like the patient admitted to his service. Clinical Impression: 1. Acute appendicitis with localized peritonitis, without perforation, abscess, or gangrene Disposition: hospitalize to Operating Room Andrey Valdez M.D. Attending Physician [facility] Emergency Departments 06/22/2020 Portions of this [...] and stable at dc. ED PROVIDER NOTE [facility] EMERGENCY DEPARTMENT NAME: Mele Doll AGE: 24 y.o. : 1995 VISIT DATE: 07/08/2020 CSN: [id number] PCP: Physician No Chief Complaint Patient presents [...] Surgeon: Magdi Salazar MD; Location: [facility]; Service: General Surgery History reviewed. No [...] file Gets together: Not on file Attends church service: Not on file Active member of [...] Colorless, Yellow Clarity, Urine Clear Clear Specific [place] 1.020 1.005 - 1.025 pH, Urine 7.5 [...] 1. Magdi Salazar MD. Specialty: General Surgery [address] [place] [id number] Contact information for after-discharge care Follow-up information [...] in drainage on op-sites. MELE DOLL [facility] [id number] 1995 DATE 06/22/2020 OPERATIVE REPORT SURGEON MAGDI [...] utilizing 0 Ethibond with an open technique. Zjclfd-[id number]-[id number] suture was placed after complete desufflation of [...] mL. SPECIMEN Consists of the acute appendicitis. MD Campbell TOMLINSON 06/22/2020 20:33 [id number] T 06/23/2020 01:38 VMT/MODL Umbilical dressing saturated with light pink serous drainage.Pubic dressing 1/2 saturated with shadow of pink drainage. Brief Post Operative Note Patient Name: Mele Doll : 1995 (24 y.o.) Date of Service: 06/22/2020 CSN: [id number] Procedure(s): APPENDECTOMY LAPAROSCOPIC Pre-Operative Diagnoses: RIGHT SIDED ABDOMINAL PAIN - ACUTE APPENDICITIS Post-Operative Diagnoses: ACUTE RETROCECAL APPENDICITIS Surgeon(s) and Role: * Magdi Salazar MD - Primary Anesthesiologist: Jaylin Buckley MD Business Strategy Manager: Tanisha Varghese RN Scrub Person Assist: [...] previous ECG Rhythm: sinus rhythm BPM: 85 W[place] Interval: 108 QRS Interval: 82 QT Interval: 426 Clinical impression: non-specific ECG documented in this encounter INFORMATION SOURCE (unrecogn ized section and content) DATE CREATED AUTHOR 07/13/2020 [facility] DATE CREATED AUTHOR AUTHOR'S ORGANIZ ATION 01/28/2023 [facility] DATE CREATED AUTHOR AUTHOR'S ORGANIZ ATION 05/31/2024 [facility] EPIC FOR RECORDS PERTAINING TO PATIENTS [...] BE BASED ON THE PRIMARY CLINICAL RECORDS. [facility] [employer] provides no warranty or guarantee of the accuracy or completeness of information in this document.
[2024-06-05 05:51] LABS: Hemoglobin 12.2 g/dL (12.0-16.0); Mean Corpuscular HGB Conc 32.1 g/dL (29.9-35.2); Mean Corpuscular Hemoglobin 26.2 pg (26.7-34.0); Mean Corpuscular Volume 81.7 fL (81.0-99.0); Mean Platelet Volume 12.8 fL (9.5-13.5); Platelet Count 171 10^3/uL (150-450); Red Blood Count 4.65 10^6/uL (4.20-5.40); Red Cell Distribution Width 12.9 % (11.0-15.0); White Blood Count 8.1 10^3/uL (4.0-11.0)
[2024-06-05] MEDS: OXYTOCIN/0.9 % SODIUM CHLORIDE 10 UNITS/500 ML PLAST..BAG 6 UNIT IV (06:10)
[2024-06-05] MEDS: 0.9 % SODIUM CHLORIDE 1,000 ML 125 ML IV ×2 (06:10→14:10)
[2024-06-05 06:28] LABS: Amphetamine Screen Urine NEGATIVE (NEGATIVE); Benzodiazepines Screen Urine NEGATIVE (NEGATIVE); Cannabinoid Screen Urine NEGATIVE (NEGATIVE); Cocaine Screen Urine NEGATIVE (NEGATIVE); Methamphetamines Screen Urine NEGATIVE (NEGATIVE); Opiate Screen Urine NEGATIVE (NEGATIVE); Phencyclidine Screen Urine NEGATIVE (NEGATIVE)
[2024-06-05 06:29] LABS: Barbiturates Screen Urine NEGATIVE (NEGATIVE); Buprenorphine Screen Urine NEGATIVE (NEGATIVE); Methadone Screen Urine NEGATIVE (NEGATIVE); Oxycodone Screen Urine NEGATIVE (NEGATIVE); Tricyclic Antidepressant Urine NEGATIVE (NEGATIVE)
[2024-06-05] MEDS: NALBUPHINE HCL 10 MG/ML AMPULE IV (15:53)
--- NOTE | 2024-06-05 17:14 | PM.OBPRCVD ---
Procedure Intrapartal events: None Induction method: per misoprostol protocol Delivery augmentation: rupture of membranes and pitocin Delivery monitor: external FHT and external uterine Route of delivery: Episiotomy Description: none L&D Laceration Description: perineal - 1st degree Delivery repair: Vicryl Estimated blood loss (mL): 250 Anesthesia type: undecided Disposition: floor Delivery date: 06/05/24 Gender: male presentation: vertex Placental delivery description: Spontaneous cord description: 3 Vessels
[2024-06-05] MEDS: LIDOCAINE HCL 1% 200 MG/20 ML MDV INJ (17:24)
[2024-06-05] MEDS: IBUPROFEN 600 MG TABLET PO (18:47)
[2024-06-05] MEDS: BENZOCAINE/MENTHOL 85 GRAM SPRAY BOTTLE 1 APPLIC TOPICAL (18:48)
[2024-06-05] MEDS: GLYCERIN/WITCH HAZEL PADS 1 PAD TOPICAL (18:48)
[2024-06-06] MEDS: IBUPROFEN 600 MG TABLET PO ×2 (02:08→08:40)
[2024-06-06 06:55] LABS: Basophils Percent Auto 0.2 % (0.2-2.0); Eosinophils Percent Auto 0.4 % (0.9-7.0); Hematocrit 34.8 % (36.0-48.0); Hemoglobin 11.2 g/dL (12.0-16.0); Immature Granulocytes Abs Auto 0.03 10^3/uL (0.00-0.03); Immature Granulocytes Pct Auto 0.3 % (0.0-0.5); Lymphocytes Absolute Auto 1.6 10^3/uL (1.2-3.8); Lymphocytes Percent Auto 14.7 % (20.5-60.0); Mean Corpuscular HGB Conc 32.2 g/dL (29.9-35.2); Mean Corpuscular Hemoglobin 26.6 pg (26.7-34.0); Mean Corpuscular Volume 82.7 fL (81.0-99.0); Mean Platelet Volume 12.4 fL (9.5-13.5); Monocytes Absolute Auto 0.6 10^3/uL (0.3-0.8); Monocytes Percent Auto 5.5 % (1.7-12.0); Neutrophils Absolute Auto 8.6 10^3/uL (1.4-6.5); Neutrophils Percent Auto 78.9 % (43.0-75.0); Platelet Count 159 10^3/uL (150-450); Red Blood Count 4.21 10^6/uL (4.20-5.40); Red Cell Distribution Width 13.2 % (11.0-15.0); White Blood Count 10.9 10^3/uL (4.0-11.0)
[2024-06-06 08:34] VITALS: BP 122/76; PULSE 108; TEMP 36.4
[2024-06-06] MEDS: DOCUSATE SODIUM 100 MG CAPSULE PO (08:41)
--- NOTE | 2024-06-06 09:14 | PM.OBPN ---
OB - PN: Subj Subjective Patient comments: no complaints and pain well controlled Surrency status: doing well Exam Constitutional Vital Signs, click to edit/add: Last Vital Signs Temp 97.6 F 06/05/24 23:40 Pulse 108 H 06/06/24 08:34 Resp 16 06/05/24 23:40 BP 122/76 06/06/24 08:34 O2 Del Method Room Air 06/05/24 23:40 Documenting provider has reviewed patient's vital signs: yes Common normals: no apparent distress Respiratory Common normals: normal respiratory effort and clear to auscultation bilaterally Cardio Common normals: regular rate and regular rhythm GI Common normals: Normal to inspection, nondistended, normoactive bowel sounds present Extremity Common normals: no calf tenderness Results Labs Labs: Short CBC 06/06/24 Range/Units 06:47 WBC 10.9 (4.0-11.0) 10^3/uL Hgb 11.2 L (12.0-16.0) g/dL Hct 34.8 L (36.0-48.0) % Plt Count 159 (150-450) 10^3/uL OB - PN: A/P Plan - Vaginal Delivery day: 1 Plan: routine care Time Spent with Patient Time: Total time spent is greater than 50% in coordination of care (as documented) at patient's floor/unit and/or counseling patient: Total time spent with greater than 50% in coordination of care (as documented) at patient's floor/unit and/or counseling patient: less than 15 minutes
[2024-06-06] MEDS: ADACEL DIPH,PERTUSS(ACELL),TET VAC/PF 0.5 ML ADULT SYRINGE IM (19:39)
== END 2024-06-06 19:50 | disposition home or self-care (01) | DRG 807 ==
PROVIDERS: Admitting Provider Obstetrics & Gynecology; Visit Provider Obstetrics & Gynecology
DX: O48.0 Post-term pregnancy (principal); Z37.0 Single live birth; Z3A.40 40 weeks gestation of pregnancy; O70.0 First degree perineal laceration during delivery
CPT/HCPCS: 36415; 59050; 59410; 80307; 85025; 85027; 85461; 86850; 86900; 86901; 90715; J2300